=== PATIENT | female | born 1965 | race Caucasian/White ===

== ENCOUNTER 2020-01-23 13:05 | Outpatient (REF) | payer OTHER, SELFPAY ==
[2020-01-24 09:51] LABS: CT PCR NOT DETECTED (Not Detect.); NG PCR NOT DETECTED (Not Detect.)
[2020-01-27 22:41] LABS: HPV mRNA E6/E7 Not Detected (Not Detected)
== END 2020-01-23 13:06 | disposition home or self-care (01) ==
LOC: HO.LNP 13:05
PROVIDERS: PCP Family Medicine; Referring Provider Family Medicine; Visit Provider Advanced Practice Midwife
DX: Z01.411 Encounter for gynecological examination (general) (routine) with abnormal findings (principal); Z20.2 Contact with and (suspected) exposure to infections with a predominantly sexual mode of transmission; L73.8 Other specified follicular disorders
CPT/HCPCS: 87491; 87591; 87624; 87625; 88142

== ENCOUNTER 2020-07-09 12:50 | Outpatient (REF) | payer OTHER, SELFPAY ==
[2020-07-09 15:17] LABS: Anion Gap 14 (12-20); Blood Urea Nitrogen 13 mg/dL (9-16); Calcium 9.1 mg/dL (8.4-10.2); Carbon Dioxide 22 mmol/L (22-29); Chloride 104 mmol/L (96-108); Cholesterol 115 mg/dL; Estimated Glomerular Filt Rate > 60; Glucose Fasting 107 mg/dL (60-99); HDL Cholesterol 50 mg/dL; LDL Cholesterol Calculated 53 mg/dl; Potassium 3.6 mmol/L (3.3-5.1); Sodium 136 mmol/L (135-145); Triglycerides 64 mg/dL
[2020-07-09 15:53] LABS: Vitamin B12 504 pg/mL (200-900)
[2020-07-09 16:41] LABS: Free T4 (Free Thyroxine) 0.92 ng/dL (0.71-1.85); Thyroid Stimulating Hormone 1.14 uIU/mL (0.32-4.0)
[2020-07-10 05:56] LABS: LDL Cholesterol Direct 48 mg/dL (<100)
== END 2020-07-09 12:51 | disposition home or self-care (01) ==
LOC: HO.LAB 12:50
PROVIDERS: PCP Family Medicine; Visit Provider Internal Medicine Endocrinology, Diabetes & Metabolism
DX: E11.42 Type 2 diabetes mellitus with diabetic polyneuropathy (principal); E66.9 Obesity, unspecified; I10 Essential (primary) hypertension; Z79.899 Other long term (current) drug therapy; Z79.82 Long term (current) use of aspirin; Z79.84 Long term (current) use of oral hypoglycemic drugs; Z71.89 Other specified counseling
CPT/HCPCS: 36415; 80048; 80061; 82607; 82947; 83721; 84439; 84443; 99212

== ENCOUNTER 2020-08-20 15:24 | Outpatient (REF) | payer OTHER, SELFPAY | END 2020-08-20 15:25 | disposition home or self-care (01) | LOC: HO.LAB 15:24 | PROVIDERS: Visit Provider Internal Medicine | DX: Z20.822 Contact with and (suspected) exposure to COVID-19 (principal) | CPT/HCPCS: C9803; U0003; U0005 ==

== ENCOUNTER → 2020-10-20 11:24 | Outpatient (BNVA) | payer OTHER, SELFPAY | PROVIDERS: PCP Family Medicine; Visit Provider Advanced Practice Midwife | DX: Z30.431 Encounter for routine checking of intrauterine contraceptive device (principal); R10.2 Pelvic and perineal pain | CPT/HCPCS: Q3014 ==

== ENCOUNTER 2020-11-06 10:05 | Outpatient (REF) | payer OTHER, SELFPAY ==
--- NOTE | ~2020-11-06 | MM_ITS ---
EXAMINATION: MM SCREENING DIGITAL BREAST TOMOSYNTHESIS, BILATERAL CLINICAL INFORMATION: Screening. Asymptomatic. The lifetime risk of breast cancer based on the Tyrer-Cuzick Model is 10%. COMPARISON: Mammography: 09/30/2016, 08/17/2015 TECHNIQUE: Digital breast tomosynthesis is performed in both the craniocaudal and mediolateral oblique views along with computer-aided detection (CAD). Synthesized 2D images are generated from the tomosynthesis. Additional left MLO view is provided. FINDINGS: There are scattered areas of fibroglandular density (ACR BI-RADS breast composition Category b). There are no significant masses, abnormal calcifications, or other abnormalities. Parenchymal pattern is similar to prior studies. The axilla and skin contours are unremarkable. Incidental intramammary node again seen posterior upper outer quadrant right breast. MM/MM tomosynthesis screening BI IMPRESSION: No mammographic evidence of malignancy. ASSESSMENT: BI-RADS 2: Benign RECOMMENDATION: Routine annual mammography screening. This patient's information was entered into a reminder system with a target due date for their next mammogram.
== END 2020-11-06 10:06 | disposition home or self-care (01) ==
LOC: HO.MAMMO 10:05
PROVIDERS: Visit Provider Family Medicine
DX: Z12.31 Encounter for screening mammogram for malignant neoplasm of breast (principal)
CPT/HCPCS: 77063; 77067

== ENCOUNTER → 2020-12-16 13:26 | Outpatient (BNVA) | payer OTHER, SELFPAY | PROVIDERS: Visit Provider Advanced Practice Midwife | DX: Z30.432 Encounter for removal of intrauterine contraceptive device (principal); E66.01 Morbid (severe) obesity due to excess calories; E11.42 Type 2 diabetes mellitus with diabetic polyneuropathy; Z68.33 Body mass index [BMI] 33.0-33.9, adult; Z88.0 Allergy status to penicillin; Z88.8 Allergy status to other drugs, medicaments and biological substances; Z88.1 Allergy status to other antibiotic agents; Z91.041 Radiographic dye allergy status | CPT/HCPCS: 58301 ==

== ENCOUNTER → 2021-06-22 13:08 | Outpatient (BNVA) | payer OTHER, SELFPAY | PROVIDERS: PCP Family Medicine; Visit Provider Nurse Practitioner Gerontology | DX: E11.42 Type 2 diabetes mellitus with diabetic polyneuropathy (principal); E66.09 Other obesity due to excess calories; I10 Essential (primary) hypertension; Z68.32 Body mass index [BMI] 32.0-32.9, adult | CPT/HCPCS: 82947; 83036; 95250; 99212 ==

== ENCOUNTER → 2021-07-07 13:25 | Outpatient (BNVA) | payer OTHER, SELFPAY | PROVIDERS: PCP Family Medicine; Visit Provider Nurse Practitioner Gerontology | DX: E11.42 Type 2 diabetes mellitus with diabetic polyneuropathy (principal); I10 Essential (primary) hypertension; E66.09 Other obesity due to excess calories; Z68.34 Body mass index [BMI] 34.0-34.9, adult; Z79.84 Long term (current) use of oral hypoglycemic drugs | CPT/HCPCS: 82947; Q3014 ==

== ENCOUNTER 2021-09-22 05:08 | Emergency (ER) | payer OTHER, SELFPAY ==
--- NOTE | ~2021-09-22 | CT_ITS ---
EXAMINATION: CT ABDOMEN AND PELVIS WITHOUT CONTRAST CLINICAL INFORMATION: Epigastric pain COMPARISON: CT 08/01/2018 TECHNIQUE: Multidetector volumetric imaging was performed from the superior aspect of the liver through the pubic symphysis. Sagittal and coronal reformatted images were obtained on the technologist's workstation. This CT examination was performed using dose optimization techniques as appropriate, variously including the following: *Automated exposure control *Adjustment of mA and/or kV according to patient size (this includes techniques or standardized protocols for targeted exams where dose is matched to indication/reason for exam; i.e. extremities or head) *Use of iterative reconstruction technique DLP: 739 mGy-cm FINDINGS: LUNG BASES: Mild bibasilar atelectasis. LIVER, GALLBLADDER, AND BILIARY TREE: No focal liver lesions. No biliary duct dilatation. Stable small calcifications along the surface of the right lobe of the liver. Status postcholecystectomy. PANCREAS: No inflammatory changes. No pancreatic duct dilatation. SPLEEN: Normal size. ADRENAL GLANDS: Stable appearance. Unremarkable. KIDNEYS AND URETERS: No radiopaque renal or ureteral calculi. No solid mass lesions. Mild bilateral perinephric stranding. BLADDER: Unremarkable. GASTROINTESTINAL TRACT: Stomach is partially distended, suboptimally evaluated, without gross abnormality. No evidence of bowel obstruction. No bowel wall thickening seen. Appendix appears unremarkable. ABDOMINAL WALL: No significant hernia is appreciated. LYMPH NODES: No lymphadenopathy. VASCULAR: Normal caliber aorta. PELVIC VISCERA: Within normal limits. Interval removal of the previously noted IUD. OSSEOUS STRUCTURES: Degenerative changes of the spine. No suspicious lytic or blastic lesions seen. CT/CT abdomen pelvis wo con IMPRESSION: -Status postcholecystectomy. -Nonobstructive bowel gas pattern. -Mild bibasilar atelectasis. -No CT evidence of acute intra-abdominal process to explain the patient's symptoms.
--- NOTE | 2021-09-22 05:15 | ECG_ITS ---
Test Reason : ABNOMINAL PAIN Blood Pressure : / mmHG Vent. Rate : 071 BPM Atrial Rate : 071 BPM P-R Int : 190 ms QRS Dur : 080 ms QT Int : 414 ms P-R-T Axes : 055 037 043 degrees QTc Int : 449 ms Sinus rhythm with Premature atrial complexes Otherwise normal ECG When compared with ECG of 07-DEC-2019 23:06, Premature atrial complexes are now Present Referred By: Ninoska Rueda Electronically Signed By:JUAN HIGGINBOTHAM MD
[2021-09-22 05:26] VITALS: BP 150/78; PULSE 76; RESP 14; TEMP 36.7; O2SAT 100; BMI 32.5
[2021-09-22 05:38] LABS: Glucose, Whole Blood 146 mg/dL (60-115)
[2021-09-22 06:00] VITALS: RESP 16
--- NOTE | 2021-09-22 06:00 | ED.ABDPAIN ---
HPI - Abdominal Pain General Chief Complaint: Abdominal Pain Stated Complaint: UPPER ABD PAIN Time Seen by Provider: 09/22/21 05:15 Source: patient and family Mode of arrival: EMS History of Present Illness HPI narrative: 56-year-old female with history of hypertension and diabetes presents with onset of epigastric pain since yesterday that radiates into her back and has been associated with nausea, vomiting, chills but she has continued to pass flatus and have a bowel movement. Otherwise patient denies urinary pain/burning/frequency or diarrhea and states that she is status post cholecystectomy. Related Data Home Medications Medication Instructions Recorded Confirmed amitriptyline 50 mg tablet 50 mg PO BEDTIME 01/20/20 07/09/20 blood sugar diagnostic #10 ea 01/20/20 07/09/20 blood-glucose meter #1 ea 01/20/20 07/09/20 cyanocobalamin (vitamin B-12) 250 250 mcg PO DAILY 01/20/20 06/22/21 mcg tablet diphenhydramine HCl 50 mg capsule 50 mg PO BEDTIME 01/20/20 07/09/20 hydrochlorothiazide 25 mg tablet 25 mg PO DAILY 01/20/20 07/07/21 ibuprofen 600 mg tablet 600 mg PO TID 01/20/20 07/09/20 lorazepam 0.5 mg tablet 0.5 mg PO BID PRN 01/20/20 07/09/20 sertraline 100 mg tablet 0 mg PO 01/20/20 07/09/20 topiramate 100 mg tablet 100 mg PO BID 01/20/20 07/09/20 albuterol sulfate 2.5 mg INHALATION Q4-6H PRN 01/23/20 07/09/20 albuterol sulfate 90 mcg/actuation 0 mcg INHALATION 01/23/20 07/09/20 aerosol inhaler amlodipine 10 mg tablet 10 mg PO DAILY 01/23/20 07/07/21 aspirin 81 mg tablet,delayed 81 mg PO DAILY 01/23/20 07/07/21 release (Adult Low Dose Aspirin) beclomethasone dipropionate 80 1 inh INHALATION BID 01/23/20 07/09/20 mcg/actuation HFA breath activated aerosol (Qvar RediHaler) ciclesonide 160 mcg/actuation 0 mcg INHALATION 01/23/20 07/09/20 aerosol inhaler ciclesonide 80 mcg/actuation 1 puff INHALATION BID 01/23/20 07/09/20 aerosol inhaler (Alvesco) famotidine 20 mg tablet 20 mg PO DAILY 01/23/20 07/09/20 lisinopril 10 mg tablet 10 mg PO DAILY 01/23/20 07/07/21 montelukast 10 mg tablet 10 mg PO DAILY 01/23/20 07/09/20 (Singulair) sertraline 25 mg tablet 25 mg PO DAILY 01/23/20 07/09/20 umeclidinium 62.5 mcg/actuation 1 inh PO DAILY 01/23/20 07/09/20 blister powder for inhalation zolpidem 5 mg tablet (Ambien) 5 mg PO BEDTIME PRN 01/23/20 07/09/20 ferrous sulfate 325 mg (65 mg 0 mg PO 07/07/21 07/07/21 iron) tablet,delayed release Previous Rx's Medication Instructions Recorded nut.tx.gluc.intol,lac-free,soy 1 ea PO .twice a day 30 Days 05/22/20 (Glucerna Therapeutic Nutrition) #78278 ml empagliflozin 25 mg tablet 25 mg PO QAM 30 Days #30 tab 06/03/21 metformin 500 mg tablet,extended 500 mg PO BID 30 Days #60 tab 06/03/21 release 24hr blood sugar diagnostic (FreeStyle #50 ea 06/22/21 Lite Strips) triamcinolone acetonide 0.025 % 1 appl TOPICAL BID #80 g 06/23/21 topical ointment sitagliptin 100 mg tablet 100 mg PO DAILY 30 Days #30 tab 08/19/21 atorvastatin 40 mg tablet 40 mg PO BEDTIME 90 Days #90 tab 08/20/21 Allergies Allergy/AdvReac Type Severity Reaction Status Date / Time amoxicillin [AMOXICILLIN] Allergy Unknown UNKNOWN, Verified 09/22/21 06:13 anaphylaxis Iodinated Contrast Media Allergy Unknown ANAPHYLAXIS Verified 09/22/21 06:13 [IODINATED CONTRAST MEDIA] morphine [MORPHINE] Allergy Unknown FEELS LIKE Verified 09/22/21 06:13 HER THROAT CLOSES AND SHE GETS SHORT OF BREATH, headache Penicillins [PENICILLINS] Allergy Unknown UNKNOWN Verified 09/22/21 06:13 beta-blockers Allergy Unknown difficulty Uncoded 09/22/21 06:13 (beta-adrenergic breathing IV cotrast dye Allergy Unknown Anaphylaxis Uncoded 09/22/21 06:13 Review of Systems Review of Systems Pertinent positives and negatives as stated in HPI 10 point review of systems is otherwise negative. [facility] Past Medical History Source: nursing notes reviewed Medical History Acid reflux Asthma Depression Diabetes type 2, controlled Diabetic polyneuropathy associated with type 2 diabetes mellitus Fibromyalgia HTN (hypertension) Insomnia Iron deficiency anemia Migraine Obesity (BMI 30-39.9) Obesity due to excess calories Obesity, morbid Sebaceous gland hyperplasia of vulva Stroke Vulvar abscess Surgical History History of carpal tunnel surgery History of surgical removal of pilonidal cyst Hx of abdominoplasty Hx of adenoidectomy Hx of section Hx of craniotomy Hx of left hemicolectomy Family History Family History Father Family history of stroke Family hx of hypertension Mother Family hx of hypertension History of hyperthyroidism Hx of diabetes mellitus Hx pulmonary embolism Social History Social History Household Members: None Patient Tobacco Use Status: Never used Tobacco Advance Directives: No Physical Exam ED Vital Signs: Vital Signs - 24 hr 09/22/21 05:26 Temperature 98.1 F Pulse Rate 76 Respiratory Rate 14 Blood Pressure 150/78 H Pulse Oximetry 100 BMI result Body Mass Index 32.5 VITAL SIGNS: Reviewed. GENERAL: Well developed, well nourished, in moderate distress. HEAD: Normocephalic/atraumatic EYES: PERRLA, EOMI EARS: Ext canals without abnormality OROPHARYNX: no oral lesions noted, posterior pharynx clear LUNGS: Normal breath sounds. No adventitious sounds or accessory muscle use. SpO2<100> CARDIOVASCULAR: Regular rate and rhythm without noted murmurs, no JVD or lower extremity edema. ABDOMEN: Soft, epigastric pain, non-distended with bowel sounds. MUSCULOSKELETAL: No tenderness, deformities, or effusions noted on gross inspection. EXTREMITIES: No cyanosis, clubbing or edema. SKIN: Inspection of the skin reveals no rashes NEUROLOGIC: Alert and oriented x 4. Course Course Course Narrative: 56-year-old female with history and clinical presentation suggestive of possible pancreatitis, less likely felt to be gastritis. Patient received IV fluids pain medication. Review of investigations demonstrates a mild leukocytosis, patient been nauseous vomiting. Per carb is be low, this is felt to be consistent with patient's mild dehydration. Signed out to Dr Emerson: f/u CT scan- SBO? MDM - Abdominal Pain Lab Data Result diagrams: 09/22/21 05:54 09/22/21 05:54 Labs: Lab Results 09/22/21 09/22/21 09/22/21 Range/Units 05:35 05:54 05:54 WBC 11.7 H (4.8-10.8) X10*3/uL RBC 5.33 (4.20-5.50) X10*6/uL Hgb 14.0 (12.0-16.0) g/dl Hct 43.9 (37.0-47.0) % MCV 82.4 (80.0-98.0) fL MCH 26.3 L (27.0-33.0) pg MCHC 31.9 (31.0-35.0) g/dl RDW 14.9 (11.0-16.0) % Plt Count 237 (160-400) X10*3/uL MPV 10.0 (9.4-12.3) fL Immature Gran % (Auto) 0.3 (0.0-0.4) % Neut % (Auto) 81.3 H (45-73) % Lymph % (Auto) 13.0 L (20-40) % [place] % (Auto) 3.6 (2-11) % Eos % (Auto) 1.5 (0-4) % Baso % (Auto) 0.3 (0-2) % Lymph # (Auto) 1.5 (1.2-4.9) X10*3/uL [place] # (Auto) 0.4 (0.1-1.2) X10*3/uL Eos # (Auto) 0.2 (0.0-0.4) X10*3/uL Baso # (Auto) 0.0 (0.0-0.2) X10*3/uL Abs Immat Gran (auto) 0.03 (0.00-0.03) X10*3/uL Absolute Neuts (auto) 9.6 H (2.0-8.3) x10*3/uL Absolute Nucleated RBC 0.000 (0.0-0.012) X10*3/uL Nucleated RBC % (auto) 0.0 (0.0-0.2) /100WBC Sodium 137 (135-145) mmol/L Potassium 3.7 (3.3-5.1) mmol/L Chloride 104 (96-108) mmol/L Carbon Dioxide 19 L (22-29) mmol/L Anion Gap 18 (12-20) BUN 19 H (9-16) mg/dL Creatinine 0.87 (0.5-1.4) mg/dL Estim Creat Clear Calc 77.6 Estimated GFR > 60 POC Glucose 146 H (60-115) mg/dL Random Glucose 153 H (60-115) mg/dL Calcium 10.3 H D (8.4-10.2) mg/dL Total Bilirubin 0.5 (0.0-1.0) mg/dL AST 26 (5-31) U/L ALT 25 (0-31) U/L Alkaline Phosphatase 90 (39-117) U/L Total Protein 8.2 H (6.5-8.0) g/dL Albumin 4.5 (3.5-5.0) g/dL Lipase 38 (8-78) U/L COVID-19 (SHEILA) (Negative) COVID-19 Clin Com 09/22/21 Range/Units 05:54 WBC (4.8-10.8) X10*3/uL RBC (4.20-5.50) X10*6/uL Hgb (12.0-16.0) g/dl Hct (37.0-47.0) % MCV (80.0-98.0) fL MCH (27.0-33.0) pg MCHC (31.0-35.0) g/dl RDW (11.0-16.0) % Plt Count (160-400) X10*3/uL MPV (9.4-12.3) fL Immature Gran % (Auto) (0.0-0.4) % Neut % (Auto) (45-73) % Lymph % (Auto) (20-40) % [place] % (Auto) (2-11) % Eos % (Auto) (0-4) % Baso % (Auto) (0-2) % Lymph # (Auto) (1.2-4.9) X10*3/uL [place] # (Auto) (0.1-1.2) X10*3/uL Eos # (Auto) (0.0-0.4) X10*3/uL Baso # (Auto) (0.0-0.2) X10*3/uL Abs Immat Gran (auto) (0.00-0.03) X10*3/uL Absolute Neuts (auto) (2.0-8.3) x10*3/uL Absolute Nucleated RBC (0.0-0.012) X10*3/uL Nucleated RBC % (auto) (0.0-0.2) /100WBC Sodium (135-145) mmol/L Potassium (3.3-5.1) mmol/L Chloride (96-108) mmol/L Carbon Dioxide (22-29) mmol/L Anion Gap (12-20) BUN (9-16) mg/dL Creatinine (0.5-1.4) mg/dL Estim Creat Clear Calc Estimated GFR POC Glucose (60-115) mg/dL Random Glucose (60-115) mg/dL Calcium (8.4-10.2) mg/dL Total Bilirubin (0.0-1.0) mg/dL AST (5-31) U/L ALT (0-31) U/L Alkaline Phosphatase (39-117) U/L Total Protein (6.5-8.0) g/dL Albumin (3.5-5.0) g/dL Lipase (8-78) U/L COVID-19 (SHEILA) Negative (Negative) COVID-19 Clin Com See Note ECG Data Attestation: I personally reviewed and interpreted this ECG as follows: Prior ECG tracings: not available for review Interpretation: Sinus rhythm with PACs, HR-71, no STEMI, RI/QRS/QTC are within normal limits. Discharge Plan Discharge Clinical Impression: Epigastric abdominal pain, Nausea & vomiting Patient Disposition: Still a Patient Prescriptions: No Action Glucerna Therapeutic Nutrition Liquid 1 ea PO .twice a day 30 Days Qty: 62918 6RF metformin 500 mg tablet extended release 24hr 500 mg PO BID 30 Days Qty: 60 6RF empagliflozin 25 mg tablet 25 mg PO QAM 30 Days Qty: 30 6RF sitagliptin 100 mg tablet 100 mg PO DAILY 30 Days Qty: 30 6RF atorvastatin 40 mg tablet 40 mg PO BEDTIME 90 Days Qty: 90 2RF triamcinolone acetonide 0.025 % ointment 1 appl topical BID Qty: 80 0RF Rx Instructions: do not use near eyes amitriptyline 50 mg tablet 50 mg PO BEDTIME 0RF sertraline 100 mg tablet 0 mg PO 0RF lorazepam 0.5 mg tablet 0.5 mg PO BID PRN0RF hydrochlorothiazide 25 mg tablet 25 mg PO DAILY 0RF cyanocobalamin (vitamin B-12) 250 mcg tablet 250 mcg PO DAILY 0RF diphenhydramine HCl 50 mg capsule 50 mg PO BEDTIME 0RF topiramate 100 mg tablet 100 mg PO BID 0RF ibuprofen 600 mg tablet 600 mg PO TID 0RF (DME) FreeStyle Lite Strips Strip See Rx Instructions ea Not Applicable TID Qty: 10 0RF Rx Instructions: As directed (DME) blood-glucose meter Kit See Rx Instructions ea .ROUTE DIRECTED Qty: 1 0RF Rx Instructions: As directed albuterol sulfate 90 mcg/actuation HFA aerosol inhaler 0 mcg inhalation 0RF albuterol sulfate 2.5 mg /3 mL (0.083 %) solution for nebulization 2.5 mg inhalation Q4-6H PRN0RF Alvesco 160 mcg/actuation HFA aerosol inhaler 0 mcg inhalation 0RF Incruse Ellipta 62.5 mcg/actuation blister with device 1 inh PO DAILY 0RF lisinopril 10 mg tablet 10 mg PO DAILY 0RF zolpidem [Ambien] 5 mg tablet 5 mg PO BEDTIME PRN0RF sertraline 25 mg tablet 25 mg PO DAILY 0RF amlodipine 10 mg tablet 10 mg PO DAILY 0RF famotidine 20 mg tablet 20 mg PO DAILY 0RF Qvar RediHaler 80 mcg/actuation HFA aerosol breath activated 1 inh inhalation BID 0RF montelukast [Singulair] 10 mg tablet 10 mg PO DAILY 0RF Alvesco 80 mcg/actuation HFA aerosol inhaler 1 puff inhalation BID 0RF aspirin [Adult Low Dose Aspirin] 81 mg tablet,delayed release (DR/EC) 81 mg PO DAILY 0RF (DME) FreeStyle Lite Strips Strip See Rx Instructions .ROUTE .MEDSUPPLY Qty: 50 11RF Rx Instructions: 2 times a day ferrous sulfate 325 mg (65 mg iron) tablet,delayed release (DR/EC) 0 mg PO 0RF
[2021-09-22 06:01] LABS: MANUAL DIFF FLAG NO
[2021-09-22 06:02] LABS: Basophils Percent Auto 0.3 % (0-2); Eosinophils Absolute Auto 0.2 X10*3/uL (0.0-0.4); Eosinophils Percent Auto 1.5 % (0-4); Hematocrit 43.9 % (37.0-47.0); Imm Gran Abs Auto 0.03 X10*3/uL (0.00-0.03); Imm Gran Pct Auto 0.3 % (0.0-0.4); Lymphocytes Absolute Auto 1.5 X10*3/uL (1.2-4.9); Mean Corpuscular HGB Conc 31.9 g/dl (31.0-35.0); Mean Corpuscular Hemoglobin 26.3 pg (27.0-33.0); Mean Corpuscular Volume 82.4 fL (80.0-98.0); Monocytes Absolute Auto 0.4 X10*3/uL (0.1-1.2); Monocytes Percent Auto 3.6 % (2-11); Neutrophils Absolute Auto 9.6 x10*3/uL (2.0-8.3); Neutrophils Percent Auto 81.3 % (45-73); Platelet Count 237 X10*3/uL (160-400); Red Blood Count 5.33 X10*6/uL (4.20-5.50); Red Cell Distribution Width 14.9 % (11.0-16.0); White Blood Count 11.7 X10*3/uL (4.8-10.8)
[2021-09-22 06:20] LABS: Alanine Aminotransferase 25 U/L (0-31); Albumin Level 4.5 g/dL (3.5-5.0); Alkaline Phosphatase 90 U/L (39-117); Anion Gap 18 (12-20); Aspartate Amino Transferase 26 U/L (5-31); Bilirubin Total 0.5 mg/dL (0.0-1.0); Blood Urea Nitrogen 19 mg/dL (9-16); Calcium 10.3 mg/dL (8.4-10.2); Carbon Dioxide 19 mmol/L (22-29); Chloride 104 mmol/L (96-108); Creatinine Clr Calc Pharmacy 77.6; Estimated Glomerular Filt Rate > 60; Glucose Random 153 mg/dL (60-115); Lipase 38 U/L (8-78); Potassium 3.7 mmol/L (3.3-5.1); Sodium 137 mmol/L (135-145); Total Protein 8.2 g/dL (6.5-8.0)
[2021-09-22 06:24] LABS: COVID-19 Test Negative (Negative)
[2021-09-22] MEDS: ondansetron HCL 4 MG/2 ML VIAL IVPUSH (06:28)
[2021-09-22] MEDS: fentaNYL citrate/PF 100 MCG/2 ML VIAL 25 MCG IVPUSH (06:28)
[2021-09-22] MEDS: 0.9 % Sodium Chloride 1,000 ML 999 ML IV (06:30)
--- NOTE | 2021-09-22 06:58 | PC.NURSE ---
report given to MAYA Tran
[2021-09-22 08:08] VITALS: BP 94/57; PULSE 92; RESP 17; TEMP 36.7; O2SAT 100
[2021-09-22 10:11] LABS: Appearance Urine CLEAR; Color Urine YELLOW; Glucose Urine UA >=1000 MG/DL (NEG); Leukocyte Esterase Urine NEG (NEG); Nitrite Urine NEG (NEG); PH 7.5 (5.0-8.0); Urine Blood NEG (NEG); Urine Ketones 40 MG/DL (NEG); Urine Protein NEG (NEG-TRACE)
[2021-09-22 10:17] LABS: Squamous Epithelial Cell Urine 2+ /LPF; WBC Urine 0 /HPF (0-4)
== END 2021-09-22 11:56 | disposition home or self-care (01) ==
PROVIDERS: Student in an Organized Health Care Education/Training Program; Emergency Provider Emergency Medicine; PCP Family Medicine
DX: R10.13 Epigastric pain (principal); R11.2 Nausea with vomiting, unspecified; I10 Essential (primary) hypertension; E11.9 Type 2 diabetes mellitus without complications; J45.909 Unspecified asthma, uncomplicated; Z86.73 Personal history of transient ischemic attack (TIA), and cerebral infarction without residual deficits; Z20.822 Contact with and (suspected) exposure to COVID-19
CPT/HCPCS: 74176; 80053; 81001; 82947; 83690; 85025; 87635; 93005; 96361; 96372; 96375; 99283; 99284; J2405; J3010

== ENCOUNTER 2021-09-25 02:14 | Observation (INO) | payer OTHER, SELFPAY ==
[2021-09-25] VITALS (8 sets, daily range): BP systolic 122–157; BP diastolic 63–84; PULSE 59–87; RESP 14–20; TEMP 36.3–37; O2SAT 97–100; BMI 33.3; BMI 34.9
--- NOTE | ~2021-09-25 | US_ITS ---
EXAMINATION: US ABDOMEN LIMITED CLINICAL INFORMATION: Right upper quadrant pain. Elevated LFTs.. COMPARISON: CT scan of September 25, 2021 TECHNIQUE: Real-time imaging of the right upper quadrant abdominal viscera. FINDINGS: PANCREAS: The head and body appear unremarkable without abnormal mass or peripancreatic inflammatory change. The tail is obscured by overlying bowel gas. LIVER: There is diffuse increased echogenicity consistent with fatty infiltration. The liver is normal in size. The liver contour is normal. No focal hepatic lesion. There is no intrahepatic biliary duct dilatation seen. GALLBLADDER: Status post cholecystectomy. COMMON BILE DUCT: Normal in caliber measuring 0.4 cm in diameter. RIGHT KIDNEY: Normal. No hydronephrosis. No renal calculi or focal parenchymal lesions. The kidney measures 10.6 cm in maximum dimension. FREE FLUID: None. US/US abdomen limited IMPRESSION: Diffusely increased echogenicity of the liver consistent with fatty infiltration.
--- NOTE | ~2021-09-25 | MR_ITS ---
EXAMINATION: MR CHOLANGIOPANCREATOGRAPHY CLINICAL INFORMATION: 09/25/[address] scan COMPARISON: None. TECHNIQUE: Multiple routine MRI sequences through the abdomen were obtained. Heavily T2-weighted images were performed utilizing a dedicated MRCP technique. Contrast was not utilized for the study. FINDINGS: Biliary system: The common bile duct is normal in course and caliber measuring up to 0.5 cm with no evidence for intra-or extrahepatic biliary ductal dilatation. No intraluminal filling defects are appreciated. Gallbladder: Surgically absent. Liver parenchyma is homogeneous in signal with no focal hepatic lesion appreciated. Pancreas: The pancreatic duct is normal in course and caliber with no evidence for pancreatic ductal obstruction. There is homogeneous signal to the pancreas with no focal suspicious pancreatic lesion. No visualized abnormalities are seen in the kidneys, adrenals, or spleen. MR/MR MRCP IMPRESSION: Gallbladder surgically absent. No pancreatic or biliary ductal abnormality seen. No evidence for obstruction or intraluminal filling defects.
--- NOTE | ~2021-09-25 | CT_ITS ---
EXAMINATION: CT ABDOMEN AND PELVIS WITHOUT CONTRAST CLINICAL INFORMATION: Elevated LFTs, question retained stone COMPARISON: 09/22/2021 TECHNIQUE: Multidetector volumetric imaging was performed from the superior aspect of the liver through the pubic symphysis. Sagittal and coronal reformatted images were obtained on the technologist's workstation. This CT examination was performed using dose optimization techniques as appropriate, variously including the following: *Automated exposure control *Adjustment of mA and/or kV according to patient size (this includes techniques or standardized protocols for targeted exams where dose is matched to indication/reason for exam; i.e. extremities or head) *Use of iterative reconstruction technique DLP: 7:30 mGy-cm FINDINGS: LUNG BASES: The visualized lung bases are unremarkable. LIVER, GALLBLADDER, AND BILIARY TREE: The liver is normal in size, shape, and attenuation. No focal hepatic lesion or biliary ductal dilatation is present. Patient is status post cholecystectomy. PANCREAS: Unremarkable. SPLEEN: Unremarkable. ADRENAL GLANDS: Unremarkable. KIDNEYS AND URETERS: The kidneys are normal in size, shape, and attenuation. No hydronephrosis, hydroureter, or calculi seen. Nonspecific bilateral perinephric stranding, similar to prior. BLADDER: Unremarkable. GASTROINTESTINAL TRACT: There is scattered colonic diverticulosis. No evidence of bowel obstruction or abnormal wall thickening. The appendix is unremarkable. No free fluid or free air is seen. ABDOMINAL WALL: No significant hernia is appreciated. LYMPH NODES: Normal. VASCULAR: Unremarkable. PELVIC VISCERA: Unremarkable. OSSEOUS STRUCTURES: Degenerative changes are noted in the spine. CT/CT abdomen pelvis wo con IMPRESSION: No acute findings identified in the abdomen/pelvis. Status post cholecystectomy. No biliary ductal dilatation to suggest retained stone; if clinically warranted, this may be more definitively assessed with MRCP.
--- NOTE | 2021-09-25 02:31 | ECG_ITS ---
Test Reason : ABD PAIN Blood Pressure : / mmHG Vent. Rate : 069 BPM Atrial Rate : 069 BPM P-R Int : 190 ms QRS Dur : 084 ms QT Int : 430 ms P-R-T Axes : 053 014 033 degrees QTc Int : 460 ms Normal sinus rhythm Normal ECG When compared with ECG of 22-SEP-2021 05:23, Premature atrial complexes are no longer Present Referred By: Elin Garcia Electronically Signed By:JUAN HIGGINBOTHAM MD
--- NOTE | 2021-09-25 02:46 | ED_ITS ---
HPI - Abdominal Pain General Chief Complaint: Abdominal Pain Stated Complaint: stomach pain, n/v Time Seen by Provider: 09/25/21 02:24 Source: patient and old records reviewed Mode of arrival: ambulatory Limitations: no limitations History of Present Illness HPI narrative: 56 yo female hx of HTN, DM, obesity, GERD, seen here for epigastric pain on 09/22 with negative workup, CT scan negative at that time sent home on protonix comes back with c/o persistent RUQ pain radiating to back with n/v not responding to home nausea medications. No triggering events. MD elicited complaint: abdominal pain Pertinent past history: none Onset (ago): day(s) (09/22) Pain Consistency: intermittent Location: RUQ Severity: moderate Quality: aching Radiation: R flank and back Migration to: no migration Exacerbating factors: eating Relieving factors: nothing Associated symptoms: nausea and vomiting Related Data Home Medications Medication Instructions Recorded Confirmed amitriptyline 50 mg tablet 50 mg PO BEDTIME 01/20/20 07/09/20 blood sugar diagnostic #10 ea 01/20/20 07/09/20 blood-glucose meter #1 ea 01/20/20 07/09/20 cyanocobalamin (vitamin B-12) 250 250 mcg PO DAILY 01/20/20 06/22/21 mcg tablet diphenhydramine HCl 50 mg capsule 50 mg PO BEDTIME 01/20/20 07/09/20 hydrochlorothiazide 25 mg tablet 25 mg PO DAILY 01/20/20 07/07/21 ibuprofen 600 mg tablet 600 mg PO TID 01/20/20 07/09/20 lorazepam 0.5 mg tablet 0.5 mg PO BID PRN 01/20/20 07/09/20 sertraline 100 mg tablet 0 mg PO 01/20/20 07/09/20 topiramate 100 mg tablet 100 mg PO BID 01/20/20 07/09/20 albuterol sulfate 2.5 mg INHALATION Q4-6H PRN 01/23/20 07/09/20 albuterol sulfate 90 mcg/actuation 0 mcg INHALATION 01/23/20 07/09/20 aerosol inhaler amlodipine 10 mg tablet 10 mg PO DAILY 01/23/20 07/07/21 aspirin 81 mg tablet,delayed 81 mg PO DAILY 01/23/20 07/07/21 release (Adult Low Dose Aspirin) beclomethasone dipropionate 80 1 inh INHALATION BID 01/23/20 07/09/20 mcg/actuation HFA breath activated aerosol (Qvar RediHaler) ciclesonide 160 mcg/actuation 0 mcg INHALATION 01/23/20 07/09/20 aerosol inhaler ciclesonide 80 mcg/actuation 1 puff INHALATION BID 01/23/20 07/09/20 aerosol inhaler (Alvesco) famotidine 20 mg tablet 20 mg PO DAILY 01/23/20 07/09/20 lisinopril 10 mg tablet 10 mg PO DAILY 01/23/20 07/07/21 montelukast 10 mg tablet 10 mg PO DAILY 01/23/20 07/09/20 (Singulair) sertraline 25 mg tablet 25 mg PO DAILY 01/23/20 07/09/20 umeclidinium 62.5 mcg/actuation 1 inh PO DAILY 01/23/20 07/09/20 blister powder for inhalation zolpidem 5 mg tablet (Ambien) 5 mg PO BEDTIME PRN 01/23/20 07/09/20 ferrous sulfate 325 mg (65 mg 0 mg PO 07/07/21 07/07/21 iron) tablet,delayed release Previous Rx's Medication Instructions Recorded nut.tx.gluc.intol,lac-free,soy 1 ea PO .twice a day 30 Days 05/22/20 (Glucerna Therapeutic Nutrition) #89834 ml empagliflozin 25 mg tablet 25 mg PO QAM 30 Days #30 tab 06/03/21 metformin 500 mg tablet,extended 500 mg PO BID 30 Days #60 tab 06/03/21 release 24hr blood sugar diagnostic (FreeStyle #50 ea 06/22/21 Lite Strips) triamcinolone acetonide 0.025 % 1 appl TOPICAL BID #80 g 06/23/21 topical ointment sitagliptin 100 mg tablet 100 mg PO DAILY 30 Days #30 tab 08/19/21 atorvastatin 40 mg tablet 40 mg PO BEDTIME 90 Days #90 tab 08/20/21 ondansetron 4 mg disintegrating 4 mg PO Q8H 4 Days #12 tab 09/22/21 tablet Allergies Allergy/AdvReac Type Severity Reaction Status Date / Time amoxicillin [AMOXICILLIN] Allergy Unknown UNKNOWN, Verified 09/22/21 06:13 anaphylaxis Iodinated Contrast Media Allergy Unknown ANAPHYLAXIS Verified 09/22/21 06:13 [IODINATED CONTRAST MEDIA] morphine [MORPHINE] Allergy Unknown FEELS LIKE Verified 09/22/21 06:13 HER THROAT CLOSES AND SHE GETS SHORT OF BREATH, headache Penicillins [PENICILLINS] Allergy Unknown UNKNOWN Verified 09/22/21 06:13 beta-blockers Allergy Unknown difficulty Uncoded 09/22/21 06:13 (beta-adrenergic breathing IV cotrast dye Allergy Unknown Anaphylaxis Uncoded 09/22/21 06:13 Review of Systems Review of Systems Constitutional : No Weight loss, No Fever, No Chills ENT/Mouth : No sore throat, No Rhinorrhea Eyes: No Swelling, No Redness Cardiovascular : No Chest Pain, No SOB, NoEdema Respiratory : No Cough, No Sputum, No Wheezing Gastrointestinal : Positive Nausea, Positive Vomiting, no Diarrhea, positive abdominal Pain, No Hematochezia, No Melena Genitourinary : No Dysuria, No Urinary Frequency, No Hematuria, No Urgency Musculoskeletal : No joint pain, No Myalgias, No Joint Swelling Skin : No Skin Lesions, No rash Neuro : No Weakness, No Numbness, No Dizziness, No Headache Psych : No Anxiety/Panic, No Depression Heme/Lymph: No Bruising, No Lymphadenopathy Endocrine : No Polyuria, No Polydipsia All other systems reviewed and are negative. [facility] Past Medical History Attestation statement: The following information was validated with the patient. Medical History Acid reflux Asthma Depression Diabetes type 2, controlled Diabetic polyneuropathy associated with type 2 diabetes mellitus Fibromyalgia HTN (hypertension) Insomnia Iron deficiency anemia Migraine Obesity (BMI 30-39.9) Obesity due to excess calories Obesity, morbid Sebaceous gland hyperplasia of vulva Stroke Vulvar abscess Surgical History History of carpal tunnel surgery History of surgical removal of pilonidal cyst Hx of abdominoplasty Hx of adenoidectomy Hx of section Hx of craniotomy Hx of left hemicolectomy Family History Family History Father Family history of stroke Family hx of hypertension Mother Family hx of hypertension History of hyperthyroidism Hx of diabetes mellitus Hx pulmonary embolism Social History Social History Household Members: None Patient Tobacco Use Status: Never used Tobacco Advance Directives: No Physical Exam ED Vital Signs: Vital Signs - 24 hr 09/25/21 02:25 09/25/21 05:57 Temperature 97.4 F Pulse Rate 69 71 Respiratory Rate 20 16 Blood Pressure 157/75 H 132/66 Pulse Oximetry 100 97 BMI result Body Mass Index 33.3 Appearance: Alert. Oriented X3. Anxious in pain, activing dry heaving mild acute distress. Eyes: Pupils equal, round and reactive to light. ENT: Pharynx dry MM Neck: Normal inspection. Neck supple. CVS: Normal heart rate and rhythm. Pulses normal. Respiratory: No respiratory distress. Breath sounds normal. Abdomen: Soft and moderate RUQ ttp no rebound or guarding Skin: Skin warm and dry. pale skin color. Normal skin turgor. Extremities: No lower extremity edema. Neuro: Oriented X 3. No motor deficit. No sensory deficit. Course Course Course Narrative: lactic acid 2.7 - CT scan ordered LFTs elevated, US and MRI ordered, will admit for further workup empiric antibiotics ordered, possible infection suspected 425am. plan to admit patient MDM - Abdominal Pain MDM Narrative Medical decision making narrative: 56 yo female hx of HTN, DM, obesity, GERD s/p GB removal here with c/o again of RUQ pain radiating to the back with n/v the patient appears very uncomfortable. At this time will give zofran, IV dilaudid for pain, repeat labs, IV protonix, likely repeat form of imaging given repeat visit and worsening pain. Dispo per results and findings. Differential Diagnosis Differential diagnosis: Likely abdominal pain, gastritis, pancreatitis and peptic ulcer disease; Unlikely aortic dissection, acute appendicitis, endometriosis or mesenteric ischemia Lab Data Result diagrams: 09/25/21 03:02 09/25/21 03:02 Labs: Lab Results 09/25/21 09/25/21 09/25/21 Range/Units 03:02 03:02 03:02 WBC 7.7 (4.8-10.8) X10*3/uL RBC 5.01 (4.20-5.50) X10*6/uL Hgb 12.9 (12.0-16.0) g/dl Hct 40.3 (37.0-47.0) % MCV 80.4 (80.0-98.0) fL MCH 25.7 L (27.0-33.0) pg MCHC 32.0 (31.0-35.0) g/dl RDW 15.0 (11.0-16.0) % Plt Count 235 (160-400) X10*3/uL MPV 9.8 (9.4-12.3) fL Immature Gran % (Auto) 0.3 (0.0-0.4) % Neut % (Auto) 76.1 H (45-73) % Lymph % (Auto) 17.9 L (20-40) % Stephens % (Auto) 5.1 (2-11) % Eos % (Auto) 0.3 (0-4) % Baso % (Auto) 0.3 (0-2) % Lymph # (Auto) 1.4 (1.2-4.9) X10*3/uL Stephens # (Auto) 0.4 (0.1-1.2) X10*3/uL Eos # (Auto) 0.0 (0.0-0.4) X10*3/uL Baso # (Auto) 0.0 (0.0-0.2) X10*3/uL Abs Immat Gran (auto) 0.02 (0.00-0.03) X10*3/uL Absolute Neuts (auto) 5.9 (2.0-8.3) x10*3/uL Absolute Nucleated RBC 0.000 (0.0-0.012) X10*3/uL Nucleated RBC % (auto) 0.0 (0.0-0.2) /100WBC Sodium 137 (135-145) mmol/L Potassium 3.6 (3.3-5.1) mmol/L Chloride 106 (96-108) mmol/L Carbon Dioxide 19 L (22-29) mmol/L Anion Gap 16 (12-20) BUN 14 (9-16) mg/dL Creatinine 0.86 (0.5-1.4) mg/dL Estim Creat Clear Calc 79.3 Estimated GFR > 60 Random Glucose 182 H (60-115) mg/dL Lactic Acid (0.5-2.0) mmol/L Lactic Acid F/U @ 2Hr (0.5-2.0) mmol/L Calcium 10.3 H (8.4-10.2) mg/dL Magnesium 2.0 (1.6-2.6) mg/dL Total Bilirubin 1.9 H (0.0-1.0) mg/dL Direct Bilirubin 1.2 H (0.0-0.5) mg/dL AST 1397 H (5-31) U/L ALT 764 H (0-31) U/L Alkaline Phosphatase 194 H D (39-117) U/L Troponin I High Sens (<3.5-17.0) ng/L Total Protein 8.1 H (6.5-8.0) g/dL Albumin 4.4 (3.5-5.0) g/dL Lipase 38 (8-78) U/L COVID-19 (SHEILA) Negative (Negative) COVID-19 Clin Com See Note Influenza Type A (DIETER) (Negative) Influenza Type B (DIETER) (Negative) Influenza A & B Note 09/25/21 09/25/21 09/25/21 Range/Units 03:02 03:02 03:33 WBC (4.8-10.8) X10*3/uL RBC (4.20-5.50) X10*6/uL Hgb (12.0-16.0) g/dl Hct (37.0-47.0) % MCV (80.0-98.0) fL MCH (27.0-33.0) pg MCHC (31.0-35.0) g/dl RDW (11.0-16.0) % Plt Count (160-400) X10*3/uL MPV (9.4-12.3) fL Immature Gran % (Auto) (0.0-0.4) % Neut % (Auto) (45-73) % Lymph % (Auto) (20-40) % Stephens % (Auto) (2-11) % Eos % (Auto) (0-4) % Baso % (Auto) (0-2) % Lymph # (Auto) (1.2-4.9) X10*3/uL Stephens # (Auto) (0.1-1.2) X10*3/uL Eos # (Auto) (0.0-0.4) X10*3/uL Baso # (Auto) (0.0-0.2) X10*3/uL Abs Immat Gran (auto) (0.00-0.03) X10*3/uL Absolute Neuts (auto) (2.0-8.3) x10*3/uL Absolute Nucleated RBC (0.0-0.012) X10*3/uL Nucleated RBC % (auto) (0.0-0.2) /100WBC Sodium (135-145) mmol/L Potassium (3.3-5.1) mmol/L Chloride (96-108) mmol/L Carbon Dioxide (22-29) mmol/L Anion Gap (12-20) BUN (9-16) mg/dL Creatinine (0.5-1.4) mg/dL Estim Creat Clear Calc Estimated GFR Random Glucose (60-115) mg/dL Lactic Acid 2.7 H* (0.5-2.0) mmol/L Lactic Acid F/U @ 2Hr (0.5-2.0) mmol/L Calcium (8.4-10.2) mg/dL Magnesium (1.6-2.6) mg/dL Total Bilirubin (0.0-1.0) mg/dL Direct Bilirubin (0.0-0.5) mg/dL AST (5-31) U/L ALT (0-31) U/L Alkaline Phosphatase (39-117) U/L Troponin I High Sens < 3.5 (<3.5-17.0) ng/L Total Protein (6.5-8.0) g/dL Albumin (3.5-5.0) g/dL Lipase (8-78) U/L COVID-19 (SHEILA) (Negative) COVID-19 Clin Com Influenza Type A (DIETER) Negative (Negative) Influenza Type B (DIETER) Negative (Negative) Influenza A & B Note See Note 09/25/21 Range/Units 05:38 WBC (4.8-10.8) X10*3/uL RBC (4.20-5.50) X10*6/uL Hgb (12.0-16.0) g/dl Hct (37.0-47.0) % MCV (80.0-98.0) fL MCH (27.0-33.0) pg MCHC (31.0-35.0) g/dl RDW (11.0-16.0) % Plt Count (160-400) X10*3/uL MPV (9.4-12.3) fL Immature Gran % (Auto) (0.0-0.4) % Neut % (Auto) (45-73) % Lymph % (Auto) (20-40) % Stephens % (Auto) (2-11) % Eos % (Auto) (0-4) % Baso % (Auto) (0-2) % Lymph # (Auto) (1.2-4.9) X10*3/uL Stephens # (Auto) (0.1-1.2) X10*3/uL Eos # (Auto) (0.0-0.4) X10*3/uL Baso # (Auto) (0.0-0.2) X10*3/uL Abs Immat Gran (auto) (0.00-0.03) X10*3/uL Absolute Neuts (auto) (2.0-8.3) x10*3/uL Absolute Nucleated RBC (0.0-0.012) X10*3/uL Nucleated RBC % (auto) (0.0-0.2) /100WBC Sodium (135-145) mmol/L Potassium (3.3-5.1) mmol/L Chloride (96-108) mmol/L Carbon Dioxide (22-29) mmol/L Anion Gap (12-20) BUN (9-16) mg/dL Creatinine (0.5-1.4) mg/dL Estim Creat Clear Calc Estimated GFR Random Glucose (60-115) mg/dL Lactic Acid (0.5-2.0) mmol/L Lactic Acid F/U @ 2Hr 1.0 (0.5-2.0) mmol/L Calcium (8.4-10.2) mg/dL Magnesium (1.6-2.6) mg/dL Total Bilirubin (0.0-1.0) mg/dL Direct Bilirubin (0.0-0.5) mg/dL AST (5-31) U/L ALT (0-31) U/L Alkaline Phosphatase (39-117) U/L Troponin I High Sens (<3.5-17.0) ng/L Total Protein (6.5-8.0) g/dL Albumin (3.5-5.0) g/dL Lipase (8-78) U/L COVID-19 (SHEILA) (Negative) COVID-19 Clin Com Influenza Type A (DIETER) (Negative) Influenza Type B (DIETER) (Negative) Influenza A & B Note ECG Data Attestation: I personally reviewed and interpreted this ECG as follows: ECG interpretation date: 09/25/21 ECG interpretation time: 03:01 Interpretation: Rate: 69 Rhythm: NSR Advance: normal Normal P waves. Normal YASMIN. Normal QRS complex. ST T wave : no LAVELL, normal qTC: normal prior studies: no acute ischemia The study has been interpreted contemporaneously by me. Critical Care Time Critical Care Time Critical Care Time: Yes Total Critical Care Time: 35 Attestation: review of records, IVF, IV pain medications, admission to hospital I attest to this time spent taking care of the patient Discharge Plan Discharge Clinical Impression: Elevated liver enzymes Abdominal pain Qualifiers: Abdominal location: right upper quadrant Qualified Code(s): R10.11 - Right upper quadrant pain Vomiting Qualifiers: Vomiting type: unspecified Nausea presence: with nausea Qualified Code(s): R11.2 - Nausea with vomiting, unspecified Patient Disposition: Admitted As Inpatient
[2021-09-25 03:09] LABS: Basophils Percent Auto 0.3 % (0-2); Eosinophils Percent Auto 0.3 % (0-4); Hematocrit 40.3 % (37.0-47.0); Hemoglobin 12.9 g/dl (12.0-16.0); Imm Gran Abs Auto 0.02 X10*3/uL (0.00-0.03); Imm Gran Pct Auto 0.3 % (0.0-0.4); Lymphocytes Absolute Auto 1.4 X10*3/uL (1.2-4.9); Lymphocytes Percent Auto 17.9 % (20-40); MANUAL DIFF FLAG NO; Mean Corpuscular Hemoglobin 25.7 pg (27.0-33.0); Mean Corpuscular Volume 80.4 fL (80.0-98.0); Mean Platelet Volume 9.8 fL (9.4-12.3); Monocytes Absolute Auto 0.4 X10*3/uL (0.1-1.2); Monocytes Percent Auto 5.1 % (2-11); Neutrophils Absolute Auto 5.9 x10*3/uL (2.0-8.3); Neutrophils Percent Auto 76.1 % (45-73); Platelet Count 235 X10*3/uL (160-400); Red Blood Count 5.01 X10*6/uL (4.20-5.50); White Blood Count 7.7 X10*3/uL (4.8-10.8)
[2021-09-25 03:29] LABS: Lactic Acid 2.7 mmol/L (0.5-2.0)
[2021-09-25 03:33] LABS: Troponin-I High Sensitivity < 3.5 ng/L (<3.5-17.0)
[2021-09-25] MEDS: HYDROmorphone HCl 1 MG/ML SYRINGE IVPUSH (03:33)
[2021-09-25 03:34] LABS: COVID-19 Test Negative (Negative); IDNOW Serial# 55D5AD1C
[2021-09-25] MEDS: Pantoprazole Sodium 40 MG/10 ML VIAL IVPUSH ×2 (03:34→11:31)
[2021-09-25] MEDS: ondansetron HCL 4 MG/2 ML VIAL IVPUSH ×2 (03:34→22:18)
[2021-09-25] MEDS: 0.9 % Sodium Chloride 1,000 ML 999 ML IVCONT (03:34)
[2021-09-25 03:37] LABS: Alanine Aminotransferase 764 U/L (0-31); Albumin Level 4.4 g/dL (3.5-5.0); Alkaline Phosphatase 194 U/L (39-117); Anion Gap 16 (12-20); Aspartate Amino Transferase 1397 U/L (5-31); Bilirubin Direct 1.2 mg/dL (0.0-0.5); Bilirubin Total 1.9 mg/dL (0.0-1.0); Blood Urea Nitrogen 14 mg/dL (9-16); Calcium 10.3 mg/dL (8.4-10.2); Carbon Dioxide 19 mmol/L (22-29); Chloride 106 mmol/L (96-108); Creatinine Clr Calc Pharmacy 79.3; Estimated Glomerular Filt Rate > 60; Glucose Random 182 mg/dL (60-115); Lipase 38 U/L (8-78); Potassium 3.6 mmol/L (3.3-5.1); Sodium 137 mmol/L (135-145); Total Protein 8.1 g/dL (6.5-8.0)
[2021-09-25 04:01] LABS: IDNOW Serial# 08D9AD1C; Influenza A Negative (Negative); Influenza B2 Negative (Negative)
[2021-09-25 05:08] LABS: Reflex Lactate? Lactic Acid Added
[2021-09-25] MEDS: metroNIDAZOLE/NS 500 MG/100 ML PIGGYBACK 100 MG IV (05:43)
[2021-09-25] MEDS: levoFLOXacin/D5W 500 MG/100 ML PIGGYBACK 100 MG IV (05:45)
[2021-09-25] MEDS: diphenhydrAMINE HCL 50 MG/ML VIAL 25 MG IVPUSH (06:14)
[2021-09-25] MEDS: 0.9 % Sodium Chloride 1,000 ML 100 ML IVCONT ×2 (07:02→22:18)
--- NOTE | 2021-09-25 09:44 | PHA.MEDREC ---
Pharmacy Consult ? Medication Reconciliation Pharmacy has completed the medication reconciliation.
[2021-09-25 09:59] LABS: Acetaminophen LAB < 1 mcg/mL (<30)
[2021-09-25 10:27] LABS: Alanine Aminotransferase 811 U/L (0-31); Albumin Level 3.7 g/dL (3.5-5.0); Alkaline Phosphatase 178 U/L (39-117); Aspartate Amino Transferase 1180 U/L (5-31); Bilirubin Direct 1.1 mg/dL (0.0-0.5); Bilirubin Total 1.5 mg/dL (0.0-1.0); Total Protein 6.7 g/dL (6.5-8.0)
--- NOTE | 2021-09-25 11:02 | P.HPHOSP_ITS ---
History of Present Illness Date of Service: 09/25/21 Attending physician on admission: Rosa Hernandez Chief Complaint: abd pain ruq/eleavted lft's 56-year-old female with past medical history of asthma, diabetes, hypertension, obesity, migraine, also history of aneurysm bleed and stroke in 2009( was in [facility] )- patient is coming to the hospital because 2 days ago she started to having epigastric and right upper quadrant pain radiating to the right lateralside, with persistent nausea and vomiting- she came to the hospital on09/22/21: that time was discharged with ppi . patient says that she went home and subsequently continued to have right upper quadrant pain and nausea vomiting, could not tolerate food- so decided to come to the hospital. her pain she explains is constant in epigastric and right upper quadrant area, burning type, could not tell any elevating or aggravating factor. denies any fever or chills or chest pain or shortness of breath orweakness or numbness. she denies any body in the family sick like her or any new medication use. She also denies any previous episode like this. social history: Lives with herfamily- denies any history of smoking, recreation drug or etoh use. denies any excessive use of pain medications specially Tylenol. In emergency room: Found to have significantly elevated LFTs which seems slightly improving with repeat labs. new leukocytosis or fever ?US/US abdomen limited IMPRESSION: Diffusely increased echogenicity of the liver consistent with fatty infiltration. by the time reach to the ED patient went to the MRI already. will follow-up with abdominal MRI report. Review of Systems Review of Systems: As above. [facility] Medical History Acid reflux Asthma Depression Diabetes type 2, controlled Diabetic polyneuropathy associated with type 2 diabetes mellitus Fibromyalgia HTN (hypertension) Insomnia Iron deficiency anemia Migraine Obesity (BMI 30-39.9) Obesity due to excess calories Obesity, morbid Sebaceous gland hyperplasia of vulva Stroke Vulvar abscess Family History Father Family history of stroke Family hx of hypertension Mother Family hx of hypertension History of hyperthyroidism Hx of diabetes mellitus Hx pulmonary embolism Surgical History History of carpal tunnel surgery History of surgical removal of pilonidal cyst Hx of abdominoplasty Hx of adenoidectomy Hx of section Hx of craniotomy Hx of left hemicolectomy Social History Household Members: None Patient Tobacco Use Status: Never used Tobacco Advance Directives: No Meds Allergies Allergy/AdvReac Type Severity Reaction Status Date / Time amoxicillin [AMOXICILLIN] Allergy Unknown UNKNOWN, Verified 09/22/21 06:13 anaphylaxis Iodinated Contrast Media Allergy Unknown ANAPHYLAXIS Verified 09/22/21 06:13 [IODINATED CONTRAST MEDIA] morphine [MORPHINE] Allergy Unknown FEELS LIKE Verified 09/22/21 06:13 HER THROAT CLOSES AND SHE GETS SHORT OF BREATH, headache Penicillins [PENICILLINS] Allergy Unknown UNKNOWN Verified 09/22/21 06:13 beta-blockers Allergy Unknown difficulty Uncoded 09/22/21 06:13 (beta-adrenergic breathing IV cotrast dye Allergy Unknown Anaphylaxis Uncoded 09/22/21 06:13 Active Medications: Current Medications Albuterol Sulfate (Albuterol Sulfate (0.083%) 2.5 Mg/3 Ml Vial.Neb) 2.5 mg INHALE Q4-6H PRN PRN Reason: Wheezing Albuterol Sulfate (Albuterol Sulfate 90 Mcg 8 Gm Inhaler) puff INHALE Q4H PRN PRN Reason: Wheezing Aspirin (Aspirin Enteric Coated 81 Mg Tablet.) 81 mg PO DAILY [facility] Cyanocobalamin (Cyanocobalamin (Vitamin B-12) 500 Mcg Tablet) 250 mcg PO DAILY [facility] Dextrose (Dextrose 50 % 25 Gm/50 Ml Syringe) 25 gm IVPUSH Q15M PRN; Protocol PRN Reason: per Hypoglycemia Standing Ord. Famotidine (Famotidine 20 Mg Tablet) 20 mg PO DAILY [facility] Glucose (Glucose Gel 15 Gm Gel..Gram.) 15 gm PO Q15M PRN; Protocol PRN Reason: per Hypoglycemia Standing Ord. Sodium Chloride (Ns) 1,000 mls @ 100 mls/hr IVCONT .Q10H YESY Last Admin: 09/25/21 07:02 Dose: 100 mls/hr Documented by: Lactated Ringer's (Lr) 1,000 mls @ 80 mls/hr IVCONT .[id number] [facility] Insulin Human Lispro (Insulin Lispro 100 Unit/Ml 3 Ml Vial) 0 unit SUBCUT QIDACHS [facility]; Protocol Montelukast Sodium (Montelukast Sodium 10 Mg Tablet) 10 mg PO DAILY [facility] Ondansetron HCl (Ondansetron Hcl 4 Mg/2 Ml Vial) 4 mg IVPUSH Q6H PRN PRN Reason: Nausea Pantoprazole Sodium (Pantoprazole Sodium 40 Mg/10 Ml Vial) 40 mg IVPUSH DAILY [facility] Pharmacy Consult (Consult Rx Perform Med Rec) 1 each MISCELLANE ONCE PRN PRN Reason: Consult order Sertraline HCl (Sertraline Hcl 100 Mg Tablet) 200 mg PO DAILY [facility] Sodium Chloride (0.9 % Sodium Chloride Flush 3 Ml Syringe) 3 ml IVFLUSH QSHIFT [facility] Topiramate (Topiramate 100 Mg Tablet) 100 mg PO BID [facility] Zolpidem Tartrate (Zolpidem Tartrate 5 Mg Tablet) 5 mg PO BEDTIME PRN PRN Reason: Insomnia Home Medications Medication Instructions Recorded Confirmed Last Taken Type blood sugar diagnostic #10 ea 01/20/20 07/09/20 Unknown History blood-glucose meter #1 ea 01/20/20 07/09/20 Unknown History cyanocobalamin (vitamin B-12) 250 250 mcg PO DAILY 01/20/20 09/25/21 Unknown History mcg tablet hydrochlorothiazide 25 mg tablet 25 mg PO DAILY 01/20/20 09/25/21 Unknown History ibuprofen 600 mg tablet 600 mg PO TID 01/20/20 09/25/21 Unknown History sertraline 100 mg tablet 200 mg PO DAILY 01/20/20 09/25/21 Unknown History topiramate 100 mg tablet 100 mg PO BID 01/20/20 09/25/21 Unknown History albuterol sulfate 2.5 mg INHALATION Q4-6H PRN 01/23/20 09/25/21 Unknown History albuterol sulfate 90 mcg/actuation 90 mcg INHALATION Q4H PRN 01/23/20 09/25/21 Unknown History aerosol inhaler aspirin 81 mg tablet,delayed 81 mg PO DAILY 01/23/20 09/25/21 Unknown History release (Adult Low Dose Aspirin) famotidine 20 mg tablet 20 mg PO DAILY 01/23/20 09/25/21 Unknown History montelukast 10 mg tablet 10 mg PO DAILY 01/23/20 09/25/21 Unknown History (Singulair) zolpidem 5 mg tablet (Ambien) 5 mg PO BEDTIME PRN 01/23/20 09/25/21 Unknown History ferrous sulfate 325 mg (65 mg 325 mg PO DAILY 07/07/21 09/25/21 Unknown History iron) tablet,delayed release pantoprazole 20 mg tablet,delayed 1 tab PO DAILY 09/25/21 09/25/21 Unknown History release Physical Exam Vital Signs and Narrative: Vital Signs: Last Vital Signs Temp 98.5 F 09/25/21 07:51 Pulse 69 09/25/21 07:51 Resp 14 09/25/21 07:51 BP 128/72 09/25/21 07:51 Pulse Ox 100 09/25/21 07:51 BMI result Body Mass Index 33.3 Appearance: Alert.? Oriented X3.? not in distress.? Eyes: Pupils equal, round and reactive to light.?mild icteric ENT: Pharynx normal.? Moist mucous membranes. cvs: rrr, [id number] , no murmur res: clear to auscultation ,no rhonchii or wheezing abd: no rebound or guarding , epigastric and ruq tenderness , bs present. ext pulses present , no cyanosis . neuro: axo3 , nonfocal. Results Labs CBC and Chem 7: 09/25/21 03:02 09/25/21 03:02 Labs: Laboratory Results - last 24 hr 09/25/21 09/25/21 09/25/21 03:02 03:02 03:02 MCV 80.4 MCH 25.7 L MCHC 32.0 RDW 15.0 Plt Count 235 MPV 9.8 Immature Gran % (Auto) 0.3 Neut % (Auto) 76.1 H Lymph % (Auto) 17.9 L [place] % (Auto) 5.1 Eos % (Auto) 0.3 Baso % (Auto) 0.3 Lymph # (Auto) 1.4 [place] # (Auto) 0.4 Eos # (Auto) 0.0 Baso # (Auto) 0.0 Abs Immat Gran (auto) 0.02 Absolute Neuts (auto) 5.9 Absolute Nucleated RBC 0.000 Nucleated RBC % (auto) 0.0 Anion Gap 16 Estim Creat Clear Calc 79.3 Estimated GFR > 60 Random Glucose 182 H Lactic Acid Lactic Acid F/U @ 2Hr Calcium 10.3 H Magnesium 2.0 Total Bilirubin 1.9 H Direct Bilirubin 1.2 H AST 1397 H ALT 764 H Alkaline Phosphatase 194 H D Troponin I High Sens Total Protein 8.1 H Albumin 4.4 Lipase 38 Acetaminophen Cancelled COVID-19 (SHEILA) Negative COVID-19 Clin Com See Note Influenza Type A (DIETER) Influenza Type B (DIETER) Influenza A & B Note 09/25/21 09/25/21 09/25/21 03:02 03:02 03:33 MCV MCH MCHC RDW Plt Count MPV Immature Gran % (Auto) Neut % (Auto) Lymph % (Auto) [place] % (Auto) Eos % (Auto) Baso % (Auto) Lymph # (Auto) [place] # (Auto) Eos # (Auto) Baso # (Auto) Abs Immat Gran (auto) Absolute Neuts (auto) Absolute Nucleated RBC Nucleated RBC % (auto) Anion Gap Estim Creat Clear Calc Estimated GFR Random Glucose Lactic Acid 2.7 H* Lactic Acid F/U @ 2Hr Calcium Magnesium Total Bilirubin Direct Bilirubin AST ALT Alkaline Phosphatase Troponin I High Sens < 3.5 Total Protein Albumin Lipase Acetaminophen COVID-19 (SHEILA) COVID-19 Clin Com Influenza Type A (DIETER) Negative Influenza Type B (DIETER) Negative Influenza A & B Note See Note 09/25/21 09/25/21 05:38 09:32 MCV MCH MCHC RDW Plt Count MPV Immature Gran % (Auto) Neut % (Auto) Lymph % (Auto) [place] % (Auto) Eos % (Auto) Baso % (Auto) Lymph # (Auto) [place] # (Auto) Eos # (Auto) Baso # (Auto) Abs Immat Gran (auto) Absolute Neuts (auto) Absolute Nucleated RBC Nucleated RBC % (auto) Anion Gap Estim Creat Clear Calc Estimated GFR Random Glucose Lactic Acid Lactic Acid F/U @ 2Hr 1.0 Calcium Magnesium Total Bilirubin 1.5 H Direct Bilirubin 1.1 H AST 1180 H ALT 811 H Alkaline Phosphatase 178 H Troponin I High Sens Total Protein 6.7 Albumin 3.7 Lipase Acetaminophen < 1 COVID-19 (SHEILA) COVID-19 Clin Com Influenza Type A (DIETER) Influenza Type B (DIETER) Influenza A & B Note ECG Attestation: I personally reviewed and interpreted this ECG as follows: (nsr) Imaging Radiologist's Impressions: Impressions Abdomen/Pelvis CT 09/25/21 03:59 IMPRESSION: No acute findings identified in the abdomen/pelvis. Status post cholecystectomy. No biliary ductal dilatation to suggest retained stone; if clinically warranted, this may be more definitively assessed with MRCP. Abdomen Ultrasound 09/25/21 08:00 IMPRESSION: Diffusely increased echogenicity of the liver consistent with fatty infiltration. Assessment and Plan (1) Abdominal pain: Qualifiers: Abdominal location: right upper quadrant Qualified Code(s): R10.11 - Right upper quadrant pain Status: Acute (2) Elevated liver enzymes: Status: Acute Plan 56-year-old female with past medical history of asthma, diabetes, hypertension, obesity, migraine, also history of aneurysm bleed and stroke in 2009( was in [facility] )- ruq/epigastric . 1.abd pain: hepatitis serology added,monospot,veronica tylenol <1 abdominal ultrasound: Diffusely increased echogenicity of the liver consistent with fatty infiltration. mri abd -report pending hydration moniter bmp,lft, pt/ptt/inr hold statin, also avoid medications that can interfere with liver function. clear liquid diet Gi eval 2. htn: Fluctuating, in the light of persistent nausea vomiting will hold hydrochlorothiazide and monitor blood pressure. 3. dm: fs with sliding scale coverage. hold oral hypoglycemic. 4.hx of asthma: stable , continue home meds 5. depression: continue home meds 6. hx of cva/brain aneurism bleed in 2010: currently no new neurological complaints,seems fine. 7. obesity: Encouraged to lose weight, cutdown calories. 8. persistent nausea vomiting: added Zofran, gentle hydration, ppi . DVT prophylaxis: Mechanical devices. Above management discussed the patient and her daughter initially in detail length- miss initials phone number is [phone], her 's number is [phone]. patient is full code, time spent in assessment and plan coordination is 70 minute. considering significant elevated LFTs need workup and monitoring, Gi eval - patient mayneed 2 midnight stay. Quality Stroke Does the patient have a stroke diagnosis?: No VTE Prior VTE?: No VTE Risk Level:: Medical - moderate - high VTE Device Contraindication: N/A - Device Ordered VTE Drug Contraindication: N/A - Med Ordered
[2021-09-25] MEDS: Lactated Ringers 1,000 ML 80 ML IVCONT (11:21)
[2021-09-25 11:36] LABS: Glucose, Whole Blood 118 mg/dL (60-115)
[2021-09-25 11:41] LABS: INTERNATIONAL NORM RATIO 1.1 (0.9-1.1)
--- NOTE | 2021-09-25 12:23 | PM.EVENT ---
Event Note Date of Service: 09/25/21 Event Note: GI Consult-Full note dictated-History via patient with a medical charge entry specialist, and from the EMR Imp: Acute hepatitis with 3-4 days of RUQ pain, nausea, and vomiting. She had a normal liver profile on 09/22/2021 when she was in the ER for the beginning of her illness. She is s/p CCY. Her U/S, CT, and MRI all look OK. She denies any new meds, Tylenol/NSAIDs, ill contacts, suspicious foods, etc. Her PT/INR is normal and she otherwise does not show any signs of liver failure. Overall, she appears well. Diff dx: Viral hepatitis is most likely. Drug-induced hepatitis, Autoimmune hepatitis, and a biliary source seem unlikely based on her clinical history and workup thus far.. Rec: Supportive care, diet as tolerated, F/U labs in AM, check Hep A IgM/Hep B/Hep C(Hep C was neg. in 2019), check Monospot, check VONNIE and ASMA. Hold her statin and any other potential hepatotoxic drugs in the meantime. D/W patient in detail. Thanks
[2021-09-25 13:09] LABS: Monotest Negative (Negative)
--- NOTE | 2021-09-25 13:24 | CONS_ITS ---
DATE OF SERVICE: 09/25/2021 REASON FOR CONSULTATION: Acute hepatitis. HISTORY OF PRESENT ILLNESS: This has been obtained from the patient with a internist medical doctor md and from the medical record. The patient is a 56-year-old female, who describes feeling well up until about 3 days ago. At that time, she developed the onset of some right upper quadrant pain and burning with associated nausea and vomiting. She came to the ER on September 22, and at that time had a completely normal liver profile and negative CT of the abdomen. She was subsequently discharged. Over the last 3 days her vomiting has persisted, but without any signs of bleeding. She has continued with a right upper quadrant discomfort and burning. She did not notice any jaundice. She did have intermittent chills, but did not have any documented fever. During the last few days, she has not been using any significant amounts of Tylenol nor NSAIDs as she has really been unable to keep anything down. Due to the persistent symptoms, she came to the ER. She denies any signs of jaundice at home. There has been no signs of bleeding. She denies any diarrhea. Prior to the past 3 days, she was not having any GI symptoms. She has a good appetite in general up until the past 3 days. She denies any significant trouble with her stomach such as significant heartburn, dysphagia, nor chronic abdominal pain. She denies any alcohol use, nor drug use. She denies any ill contacts, suspicious food intake, new medication, nor travel. In the ER, she has been stable hemodynamically. She has been afebrile. MEDICATIONS: At home include inhalers, aspirin 81 mg atorvastatin, and empagliflozin, famotidine, iron, hydrochlorothiazide, ibuprofen, metformin montelukast, ondansetron, pantoprazole, sertraline, topiramate, Ambien, and sitagliptin. PAST MEDICAL HISTORY: Diabetes mellitus. Hyperlipidemia. Asthma. She describes a history of cardiac arrhythmia and a stroke about 10 years ago with some residual right-sided weakness. She denies any history of VA, nor kidney disease. Her surgeries include C-sections, panniculectomy, and cholecystectomy. SOCIAL HISTORY: She is . As above. FAMILY HISTORY: Noncontributory. She denies any history of liver disease. REVIEW OF SYSTEMS: CONSTITUTIONAL: Up until the past 3 days, she was feeling well with good energy and good appetite. SKIN: No rash. No pruritus. CARDIAC: No chest pain. PULMONARY: No cough. No hemoptysis. GASTROINTESTINAL: As above. PHYSICAL EXAMINATION: GENERAL: The patient is a pleasant, alert, comfortable-appearing female. HEENT: Anicteric sclerae. SKIN: Warm and dry. No obvious spider angiomata. NECK: Supple without lymphadenopathy. CARDIAC: Normal S1, S2. ABDOMEN: Soft and nondistended. Normal bowel sounds. She does have some right upper quadrant tenderness without palpable mass. EXTREMITIES: Without edema, nor palmar erythema. NEURO: Alert and oriented x 3, No asterixis LABORATORIES: On September 22, she had a completely normal liver profile. Over the last 2 or 3 years, she has had some very minimal elevation of the liver enzymes. She did have a negative VONNIE and negative hepatitis C antibody in the past. She had a smooth muscle antibody that was slightly elevated at that time. When she came back to the ER today, 3 days after the normal liver profile on September 22, her total bilirubin was 1.9, direct bilirubin 1.2, AST 1397, ALT 764, and alkaline phosphatase 194. Albumin was normal at 4.4. Lipase is 38. Normal electrolytes, BUN and creatinine. PT 13.0 with INR 1.1 today. White count 7.7, hemoglobin 12.9, platelets 235,000. Only 0.3% eosinophils. Acetaminophen level today was less than 1. Hepatitis A IgM, hepatitis B, hepatitis C, and Monospot are pending. She did have a CT scan on September 22, and again today, which were unremarkable. There was no sign of any liver disease, splenomegaly, ascites, nor biliary disease. She did have an abdominal ultrasound today as well, which showed a normal bile duct of 4 mm and no ascites. She did have a MRCP today as well, which to my reading shows a normal biliary tree without any sign of filling defects. The official reading from the radiologist is pending. IMPRESSION: Given the patient's clinical history, I would be most suspicious for an acute hepatitis in relation to a viral condition whether it be acute hepatitis A or perhaps a nonspecific virus. I would rule out hepatitis B, mononucleosis, and hepatitis C as well. I do not think, this is a drug-induced hepatitis, given normal LFT's just 3 days ago and no new medication to speak of. I doubt this is biliary based on all of her imaging studies. I do not think, this is an autoimmune hepatitis given normal LFT just 3 days ago as well Overall, she appears well and does not appear to have any signs of liver failure given her good clinical appearance, minimally elevated bilirubin, and normal PT with INR. At this point, I will continue supportive care. Her diet can be advanced as tolerated. She will have followup laboratories in the morning including liver profile, PT with INR, and chemistries. We shall await the results of her viral hepatitis studies and Monospot. The VONNIE and smooth muscle antibody have been ordered, although again I suspect those will be negative. I would hold her statin medication and any other potential hepatotoxic drugs in the meantime, although I do not think this is a drug-induced hepatitis. Certainly if the elevated enzymes persist, we could proceed with eventual liver biopsy. If she shows signs of liver failure, she should be transferred to a tertiary liver transplant center, but hopefully that will not be necessary. This has all been discussed in detail with the patient with the assistance of the internist medical doctor md, and she is comfortable with the plan. Thank you for the consultation. MD MORAIMA Garcia/SOSA / [phone] KYLE
[2021-09-25] MEDS: Ketorolac Tromethamine 15 MG/ML VIAL IVPUSH ×2 (14:15→20:05)
--- NOTE | 2021-09-25 18:13 | PC.NURSE ---
pt a&ox3, vss, pt denies any pain at this time, resting comfortably, family at bedside. POC 112 - no coverage needed per sliding scale. urine sample obtained and sent to lab.
--- NOTE | 2021-09-25 18:14 | PC.NURSE ---
RN-RN report given.
[2021-09-25 18:15] LABS: Glucose, Whole Blood 112 mg/dL (60-115)
[2021-09-25 18:27] LABS: Appearance Urine CLEAR; Color Urine DK YELLOW; Glucose Urine UA NEG (NEG); Leukocyte Esterase Urine TRACE (NEG); Nitrite Urine NEG (NEG); Urine Blood NEG (NEG); Urine Ketones NEG (NEG); Urine Protein TRACE MG/DL (NEG-TRACE)
[2021-09-25 18:41] LABS: Amphetamine Screen Urine Not Detected (Not Detect); Barbiturates, Urine Not Detected (Not Detect); Benzodiazepines Screen Urine Not Detected (Not Detect); Cannabinoid Screen Urine Not Detected (Not Detect); Cocaine Screen Urine Not Detected (Not Detect); Fentanyl, urine POSITIVE (Not Detect); Opiate Screen Urine Not Detected (Not Detect); Phencyclidine Screen Urine Not Detected (Not Detect)
[2021-09-25 18:47] LABS: Bacteria Urine 2+ /LPF; Mucus Urine 3+ /LPF; RBC Urine 0-2 /HPF (0); Squamous Epithelial Cell Urine 3+ /LPF
[2021-09-25] MEDS: Topiramate 100 MG TABLET PO (20:03)
[2021-09-25] MEDS: Insulin Lispro 100 UNIT/ML 3 ML VIAL SUBCUT (20:03)
[2021-09-25 20:14] LABS: Glucose, Whole Blood 119 mg/dL (60-115)
[2021-09-26 03:26] VITALS: BP 128/60; PULSE 54; RESP 18; TEMP 36.6; O2SAT 100
[2021-09-26 07:21] LABS: Hematocrit 36.5 % (37.0-47.0); Hemoglobin 11.5 g/dl (12.0-16.0); Mean Corpuscular HGB Conc 31.5 g/dl (31.0-35.0); Mean Corpuscular Hemoglobin 25.8 pg (27.0-33.0); Mean Platelet Volume 10.8 fL (9.4-12.3); Platelet Count 214 X10*3/uL (160-400); Red Blood Count 4.45 X10*6/uL (4.20-5.50); Red Cell Distribution Width 15.7 % (11.0-16.0); White Blood Count 4.8 X10*3/uL (4.8-10.8)
[2021-09-26 07:32] LABS: INTERNATIONAL NORM RATIO 1.2 (0.9-1.1); Prothrombin Time 13.1 SEC (9.9-13.0)
--- NOTE | 2021-09-26 07:32 | P.PNIM_ITS ---
Subjective Subjective Date of Service: 09/26/21 Interval History: abd pain ,eleavted lft's Review of Systems abdominal pain seems to be improving, still has persistent nausea vomiting intermittent unable to tolerate food yet. Denies any chest pain or shortness of breath or fever chills Physical Exam Vital Signs: Vital Signs: Last Vital Signs Temp 97.8 F 09/26/21 03:26 Pulse 54 09/26/21 03:26 Resp 18 09/26/21 03:26 BP 128/60 09/26/21 03:26 Pulse Ox 100 09/26/21 03:26 BMI result Body Mass Index 34.9 Appearance: Alert.? Oriented X3.? not in distress.? Eyes: sclera icteric.? ENT: Pharynx normal.? Moist mucous membranes. cvs: rrr, [id number] , no murmur res: clear to auscultation ,no rhonchii or wheezing abd: no rebound or guarding ,epigastric discomfort, bs present. ext pulses present , no cyanosis . neuro: axo3 , nonfocal. Objective Data Active Medications Albuterol Sulfate (Albuterol Sulfate (0.083%) 2.5 Mg/3 Ml Vial.Neb) 2.5 mg INHALE Q4H PRN PRN Reason: Wheezing Albuterol Sulfate (Albuterol Sulfate 90 Mcg 8 Gm Inhaler) 1 puff INHALE Q4H PRN PRN Reason: Wheezing Aspirin (Aspirin Enteric Coated 81 Mg Tablet.) 81 mg PO DAILY [facility] Cyanocobalamin (Cyanocobalamin (Vitamin B-12) 500 Mcg Tablet) 250 mcg PO DAILY [facility] Dextrose (Dextrose 50 % 25 Gm/50 Ml Syringe) 25 gm IVPUSH Q15M PRN; Protocol PRN Reason: per Hypoglycemia Standing Ord. Famotidine (Famotidine 20 Mg Tablet) 20 mg PO DAILY [facility] Glucose (Glucose Gel 15 Gm Gel..Gram.) 15 gm PO Q15M PRN; Protocol PRN Reason: per Hypoglycemia Standing Ord. Sodium Chloride (Ns) 1,000 mls @ 100 mls/hr IVCONT .Q10H [facility] Last Admin: 09/25/21 22:18 Dose: 100 mls/hr Documented by: KEON Lactated Ringer's (Lr) 1,000 mls @ 80 mls/hr IVCONT .[id number] [facility] Last Admin: 09/25/21 22:20 Dose: Not Given Documented by: KEON Non-Admin Reason: IV Running Insulin Human Lispro (Insulin Lispro 100 Unit/Ml 3 Ml Vial) 0 unit SUBCUT Q IDACHS [facility]; Protocol Last Admin: 09/25/21 20:03 Dose: 2 unit Documented by: KEON Ketorolac Tromethamine (Ketorolac Tromethamine 15 Mg/Ml Vial) 15 mg IVPUSH Q6H PRN PRN Reason: Pain, Mild (Pain Scale 1-3) Last Admin: 09/25/21 20:05 Dose: 15 mg Documented by: KEON Montelukast Sodium (Montelukast Sodium 10 Mg Tablet) 10 mg PO DAILY [facility] Ondansetron HCl (Ondansetron Hcl 4 Mg/2 Ml Vial) 4 mg IVPUSH Q6H PRN PRN Reason: Nausea Last Admin: 09/25/21 22:18 Dose: 4 mg Documented by: KEON Pantoprazole Sodium (Pantoprazole Sodium 40 Mg/10 Ml Vial) 40 mg IVPUSH DAILY [facility] Last Admin: 09/25/21 11:31 Dose: 40 mg Documented by: UMM Pharmacy Consult (Consult Rx Perform Med Rec) 1 each MISCELLANE ONCE PRN PRN Reason: Consult order Sertraline HCl (Sertraline Hcl 100 Mg Tablet) 200 mg PO DAILY [facility] Sodium Chloride (0.9 % Sodium Chloride Flush 3 Ml Syringe) 3 ml IVFLUSH QSHIFT [facility] Last Admin: 09/25/21 20:04 Dose: Not Given Documented by: KEON Non-Admin Reason: IV Running Topiramate (Topiramate 100 Mg Tablet) 100 mg PO BID [facility] Last Admin: 09/25/21 20:03 Dose: 100 mg Documented by: KEON Zolpidem Tartrate (Zolpidem Tartrate 5 Mg Tablet) 5 mg PO BEDTIME PRN PRN Reason: Insomnia Labs CBC & Chem 7: 09/26/21 05:59 09/26/21 05:59 Labs: Laboratory Results - last 24 hr 09/25/21 09/25/21 09/25/21 03:02 09:32 11:27 MCV MCH MCHC RDW Plt Count MPV Absolute Nucleated RBC Nucleated RBC % (auto) PT INR POC Glucose 118 H Total Bilirubin 1.5 H Direct Bilirubin 1.1 H AST 1180 H ALT 811 H Alkaline Phosphatase 178 H Total Protein 6.7 Albumin 3.7 Urine Color Urine Appearance Urine pH Ur Specific [place] Urine Protein Urine Glucose (UA) Urine Ketones Urine Blood Urine Nitrite Ur Leukocyte Esterase Urine RBC Urine WBC Ur Squamous Epith Cells Urine Bacteria Urine Mucus Urine Opiates Screen Urine Fentanyl Screen Acetaminophen Cancelled < 1 Ur Barbiturates Screen Ur Phencyclidine Scrn Ur Amphetamines Screen U Benzodiazepines Scrn Urine Cocaine Screen U Marijuana (THC) Screen Monoscreen 09/25/21 09/25/21 09/25/21 11:28 11:28 18:11 MCV MCH MCHC RDW Plt Count MPV Absolute Nucleated RBC Nucleated RBC % (auto) PT 13.0 INR 1.1 POC Glucose 112 Total Bilirubin Direct Bilirubin AST ALT Alkaline Phosphatase Total Protein Albumin Urine Color Urine Appearance Urine pH Ur Specific [place] Urine Protein Urine Glucose (UA) Urine Ketones Urine Blood Urine Nitrite Ur Leukocyte Esterase Urine RBC Urine WBC Ur Squamous Epith Cells Urine Bacteria Urine Mucus Urine Opiates Screen Urine Fentanyl Screen Acetaminophen Ur Barbiturates Screen Ur Phencyclidine Scrn Ur Amphetamines Screen U Benzodiazepines Scrn Urine Cocaine Screen U Marijuana (THC) Screen Monoscreen Negative 09/25/21 09/25/21 09/25/21 18:16 18:16 19:57 MCV MCH MCHC RDW Plt Count MPV Absolute Nucleated RBC Nucleated RBC % (auto) PT INR POC Glucose 119 H Total Bilirubin Direct Bilirubin AST ALT Alkaline Phosphatase Total Protein Albumin Urine Color DK YELLOW Urine Appearance CLEAR Urine pH 6.0 Ur Specific [place] 1.020 Urine Protein TRACE Urine Glucose (UA) NEG Urine Ketones NEG Urine Blood NEG Urine Nitrite NEG Ur Leukocyte Esterase TRACE H Urine RBC 0-2 Urine WBC 1-4 Ur Squamous Epith Cells 3+ Urine Bacteria 2+ Urine Mucus 3+ Urine Opiates Screen Not Detected Urine Fentanyl Screen POSITIVE H Acetaminophen Ur Barbiturates Screen Not Detected Ur Phencyclidine Scrn Not Detected Ur Amphetamines Screen Not Detected U Benzodiazepines Scrn Not Detected Urine Cocaine Screen Not Detected U Marijuana (THC) Screen Not Detected Monoscreen 09/26/21 05:59 MCV 82.0 MCH 25.8 L MCHC 31.5 RDW 15.7 Plt Count 214 MPV 10.8 Absolute Nucleated RBC 0.000 Nucleated RBC % (auto) 0.0 PT INR POC Glucose Total Bilirubin Direct Bilirubin AST ALT Alkaline Phosphatase Total Protein Albumin Urine Color Urine Appearance Urine pH Ur Specific [place] Urine Protein Urine Glucose (UA) Urine Ketones Urine Blood Urine Nitrite Ur Leukocyte Esterase Urine RBC Urine WBC Ur Squamous Epith Cells Urine Bacteria Urine Mucus Urine Opiates Screen Urine Fentanyl Screen Acetaminophen Ur Barbiturates Screen Ur Phencyclidine Scrn Ur Amphetamines Screen U Benzodiazepines Scrn Urine Cocaine Screen U Marijuana (THC) Screen Monoscreen Microbiology Microbiology Results: Microbiology 09/25/21 04:09 Blood Culture - Preliminary Blood - Venous No growth after 24 hours. 09/25/21 04:03 Blood Culture - Preliminary Blood - Venous No growth after 24 hours. Assessment and Plan (1) Abdominal pain: Status: Acute (2) Elevated liver enzymes: Status: Acute Plan 56-year-old female with past medical history of asthma, diabetes, hypertension, obesity, migraine, also history of aneurysm bleed and stroke in 2009( was in [facility] )- ruq/epigastric . 1. elevated LFT: hepatitis serology added,monospot,veronica tylenol <1 ?abdominal ultrasound:?Diffusely increased echogenicity of the liver consistent with fatty infiltration. mri abd -seems fine Monospot negative, VERONICA and the serology pending, hepatitis screen also pending ?hold statin, also avoid medications that can interfere with? liver function. clear liquid diet Gi eval- LFTs improving, borderline PT /inr elevated , will monitor LFTs closely. 2. htn:? Fluctuating, in the light of persistent nausea vomiting will hold hydrochlorothiazide and monitor blood pressure. 3. dm: fs with sliding scale coverage. Avoid coverage below 200 hold oral hypoglycemic. 4.hx of asthma: stable , continue home meds 5. depression: continue home meds 6. hx of cva/brain aneurism bleed in 2010: currently no new neurological complaints,seems fine. 7. obesity:? Encouraged to lose weight, cutdown calories. 8. persistent nausea vomiting/ Abdominal pain:? viral syndrome ?added Zofran, gentle hydration, ppi , added iv dilaudid for pain. ?DVT prophylaxis: Mechanical devices. need for inpatient: Persistent nausea vomiting and abdominal pain, elevated lft's Quality Stroke Does the patient have a stroke diagnosis?: No VTE Prior VTE?: No VTE Risk Level:: Medical - moderate - high VTE Device Contraindication: N/A - Device Ordered VTE Drug Contraindication: N/A - Med Ordered
[2021-09-26 07:35] LABS: Partial Thromboplastin Time 32.9 SEC (24.1-38.0)
[2021-09-26 07:44] LABS: Glucose, Whole Blood 94 mg/dL (60-115)
[2021-09-26 07:49] LABS: Alanine Aminotransferase 784 U/L (0-31); Albumin Level 3.5 g/dL (3.5-5.0); Alkaline Phosphatase 214 U/L (39-117); Anion Gap 12 (12-20); Aspartate Amino Transferase 654 U/L (5-31); Bilirubin Direct 2.8 mg/dL (0.0-0.5); Bilirubin Total 3.8 mg/dL (0.0-1.0); Blood Urea Nitrogen 8 mg/dL (9-16); Carbon Dioxide 21 mmol/L (22-29); Chloride 112 mmol/L (96-108); Creatinine Clr Calc Pharmacy 94.6; Estimated Glomerular Filt Rate > 60; Glucose Random 102 mg/dL (60-115); Potassium 3.7 mmol/L (3.3-5.1); Sodium 141 mmol/L (135-145); Total Protein 6.2 g/dL (6.5-8.0)
[2021-09-26] MEDS: Aspirin Enteric Coated 81 MG TABLET.DR PO (07:52)
[2021-09-26] MEDS: Topiramate 100 MG TABLET PO (07:52)
[2021-09-26] MEDS: Sertraline HCL 100 MG TABLET 200 MG PO (07:52)
[2021-09-26] MEDS: Famotidine 20 MG TABLET PO (07:52)
[2021-09-26] MEDS: Cyanocobalamin (Vitamin B-12) 500 MCG TABLET 250 MCG PO (07:52)
[2021-09-26] MEDS: Montelukast Sodium 10 MG TABLET PO (07:52)
[2021-09-26] MEDS: 0.9 % Sodium Chloride 1,000 ML 100 ML IVCONT ×2 (07:53→16:56)
[2021-09-26] MEDS: Pantoprazole Sodium 40 MG/10 ML VIAL IVPUSH (07:53)
[2021-09-26 07:55] VITALS: BP 134/63; PULSE 62; RESP 18; TEMP 36.1; O2SAT 95
[2021-09-26 07:58] LABS: Calcium 8.8 mg/dL (8.4-10.2)
[2021-09-26] MEDS: ondansetron HCL 4 MG/2 ML VIAL IVPUSH ×3 (09:34→22:44)
[2021-09-26] MEDS: Ketorolac Tromethamine 15 MG/ML VIAL IVPUSH (09:36)
[2021-09-26] MEDS: HYDROmorphone HCl 0.5 MG/0.5 ML SYRINGE IVPUSH ×3 (11:13→21:09)
[2021-09-26 11:20] LABS: Glucose, Whole Blood 103 mg/dL (60-115)
--- NOTE | 2021-09-26 14:18 | MHC.CM.PN ---
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
[2021-09-26 15:40] VITALS: BP 150/70; PULSE 77; RESP 18; TEMP 37.1; O2SAT 98
[2021-09-26 16:07] LABS: Glucose, Whole Blood 119 mg/dL (60-115)
[2021-09-26 19:44] VITALS: BP 132/69; PULSE 86; RESP 18; TEMP 37; O2SAT 97
[2021-09-26 20:06] LABS: Glucose, Whole Blood 120 mg/dL (60-115)
[2021-09-26 23:44] VITALS: BP 160/74; PULSE 85; RESP 18; TEMP 37.4; O2SAT 96
[2021-09-27] MEDS: HYDROmorphone HCl 0.5 MG/0.5 ML SYRINGE IVPUSH ×2 (01:06→23:15)
[2021-09-27] MEDS: 0.9 % Sodium Chloride 1,000 ML 100 ML IVCONT ×3 (01:06→23:18)
[2021-09-27] MEDS: Ketorolac Tromethamine 15 MG/ML VIAL IVPUSH (01:14)
[2021-09-27 03:28] VITALS: BP 141/65; PULSE 73; RESP 18; TEMP 36.6; O2SAT 97
[2021-09-27 06:54] VITALS: BP 128/60; PULSE 72; RESP 16; TEMP 36.5; O2SAT 98
[2021-09-27 07:11] LABS: Glucose, Whole Blood 118 mg/dL (60-115)
--- NOTE | 2021-09-27 07:24 | P.PNIM_ITS ---
Subjective Subjective Date of Service: 09/27/21 Interval History: abd pain ,eleavted lft's Review of Systems abdominal pain seems to be improving, still has persistent nausea vomiting . denies any fever or chills or cough or phlegm Physical Exam Vital Signs: Vital Signs: Last Vital Signs Temp 97.7 F 09/27/21 06:54 Pulse 72 09/27/21 06:54 Resp 16 09/27/21 06:54 BP 128/60 09/27/21 06:54 Pulse Ox 98 09/27/21 06:54 BMI result Body Mass Index 34.9 Appearance: Alert.? Oriented X3.? not in distress.? cvs: rrr, [id number] , no murmur res: clear to auscultation ,no rhonchii or wheezing abd: no rebound or guarding ,epigastric discomfort, bs present. ext pulses present , no cyanosis . neuro: axo3 , nonfocal. Objective Data Active Medications Albuterol Sulfate (Albuterol Sulfate (0.083%) 2.5 Mg/3 Ml Vial.Neb) 2.5 mg INHALE Q4H PRN PRN Reason: Wheezing Albuterol Sulfate (Albuterol Sulfate 90 Mcg 8 Gm Inhaler) 1 puff INHALE Q4H PRN PRN Reason: Wheezing Aspirin (Aspirin Enteric Coated 81 Mg Tablet.Dr) 81 mg PO DAILY [facility] Last Admin: 09/26/21 07:52 Dose: 81 mg Documented by: IGGY Cyanocobalamin (Cyanocobalamin (Vitamin B-12) 500 Mcg Tablet) 250 mcg PO DAILY [facility] Last Admin: 09/26/21 07:52 Dose: 250 mcg Documented by: IGGY Dextrose (Dextrose 50 % 25 Gm/50 Ml Syringe) 25 gm IVPUSH Q15M PRN; Protocol PRN Reason: per Hypoglycemia Standing Ord. Famotidine (Famotidine 20 Mg Tablet) 20 mg PO DAILY [facility] Last Admin: 09/26/21 07:52 Dose: 20 mg Documented by: IGGY Glucose (Glucose Gel 15 Gm Gel..Gram.) 15 gm PO Q15M PRN; Protocol PRN Reason: per Hypoglycemia Standing Ord. Hydromorphone HCl (Hydromorphone Hcl 0.5 Mg/0.5 Ml Syringe) 0.5 mg IVPUSH Q4H PRN; Protocol PRN Reason: nausea Last Admin: 09/27/21 01:06 Dose: 0.5 mg Documented by: RAYMUNDO Sodium Chloride (Ns) 1,000 mls @ 100 mls/hr IVCONT .Q10H [facility] Last Admin: 09/27/21 07:13 Dose: Not Given Documented by: KIP Non-Admin Reason: IV Running Lactated Ringer's (Lr) 1,000 mls @ 80 mls/hr IVCONT .[id number] [facility] Last Admin: 09/27/21 01:41 Dose: Not Given Documented by: RAYMUNDO Non-Admin Reason: IV Running Insulin Human Lispro (Insulin Lispro 100 Unit/Ml 3 Ml Vial) 0 unit SUBCUT QIDACHS [facility]; Protocol Last Admin: 09/27/21 07:13 Dose: Not Given Documented by: KIP Non-Admin Reason: No Insulin Coverage Ketorolac Tromethamine (Ketorolac Tromethamine 15 Mg/Ml Vial) 15 mg IVPUSH Q6H PRN PRN Reason: Pain, Mild (Pain Scale 1-3) Last Admin: 09/27/21 01:14 Dose: 15 mg Documented by: RAYMUNDO Montelukast Sodium (Montelukast Sodium 10 Mg Tablet) 10 mg PO DAILY [facility] Last Admin: 09/26/21 07:52 Dose: 10 mg Documented by: IGGY Ondansetron HCl (Ondansetron Hcl 4 Mg/2 Ml Vial) 4 mg IVPUSH Q6H PRN PRN Reason: Nausea Last Admin: 09/26/21 22:44 Dose: 4 mg Documented by: RAYMUNDO Pantoprazole Sodium (Pantoprazole Sodium 40 Mg/10 Ml Vial) 40 mg IVPUSH DAILY [facility] Last Admin: 09/26/21 07:53 Dose: 40 mg Documented by: IGGY Pharmacy Consult (Consult Rx Perform Med Rec) 1 each MISCELLANE ONCE PRN PRN Reason: Consult order Sertraline HCl (Sertraline Hcl 100 Mg Tablet) 200 mg PO DAILY [facility] Last Admin: 09/26/21 07:52 Dose: 200 mg Documented by: IGGY Sodium Chloride (0.9 % Sodium Chloride Flush 3 Ml Syringe) 3 ml IVFLUSH QSHIFT ON [facility] Last Admin: 09/27/21 07:13 Dose: Not Given Documented by: KIP Non-Admin Reason: IV Running Topiramate (Topiramate 100 Mg Tablet) 100 mg PO BID [facility] Last Admin: 09/26/21 19:58 Dose: Not Given Documented by: RAYMUNDO Non-Admin Reason: Patient Refused Zolpidem Tartrate (Zolpidem Tartrate 5 Mg Tablet) 5 mg PO BEDTIME PRN PRN Reason: Insomnia Labs CBC & Chem 7: 09/26/21 05:59 09/26/21 05:59 Labs: Laboratory Results - last 24 hr 09/26/21 09/26/21 09/26/21 05:59 05:59 07:40 PT 13.1 H INR 1.2 H APTT 32.9 Anion Gap 12 Estim Creat Clear Calc 94.6 Estimated GFR > 60 POC Glucose 94 Random Glucose 102 Calcium 8.8 D Total Bilirubin 3.8 H Direct Bilirubin 2.8 H AST 654 H ALT 784 H Alkaline Phosphatase 214 H D Total Protein 6.2 L Albumin 3.5 09/26/21 09/26/21 09/26/21 11:14 15:43 19:47 PT INR APTT Anion Gap Estim Creat Clear Calc Estimated GFR POC Glucose 103 119 H 120 H Random Glucose Calcium Total Bilirubin Direct Bilirubin AST ALT Alkaline Phosphatase Total Protein Albumin 09/27/21 07:00 PT INR APTT Anion Gap Estim Creat Clear Calc Estimated GFR POC Glucose 118 H Random Glucose Calcium Total Bilirubin Direct Bilirubin AST ALT Alkaline Phosphatase Total Protein Albumin Microbiology Microbiology Results: Microbiology 09/25/21 04:09 Blood Culture - Preliminary Blood - Venous No growth after 48 hours. 09/25/21 04:03 Blood Culture - Preliminary Blood - Venous No growth after 48 hours. Assessment and Plan (1) Abdominal pain: Status: Acute (2) Elevated liver enzymes: Status: Acute Plan 56-year-old female with past medical history of asthma, diabetes, hypertension, obesity, migraine, also history of aneurysm bleed and stroke in 2009( was in [facility] )- ruq/epigastric . 1. elevated LFT: hepatitis serology added,monospot,veronica tylenol <1 ?abdominal ultrasound:?Diffusely increased echogenicity of the liver consistent with fatty infiltration. mri abd -seems fine Monospot negative, VERONICA and the serology pending, hepatitis screen also pending ?hold statin, also avoid medications that can interfere with? liver function. clear liquid diet Gi eval- LFTs slowly improving, borderline PT /inr elevated , will monitor LFTs closely. Gi follow up 2. htn:? Fluctuating, in the light of persistent nausea vomiting will hold hydrochlorothiazide and monitor blood pressure. will add small dose amlodipine until off hctz. 3. dm: fs with sliding scale coverage. Avoid coverage below 200 hold oral hypoglycemic. 4.hx of asthma: stable , continue home meds 5. depression: continue home meds 6. hx of cva/brain aneurism bleed in 2010: currently no new neurological complaints,seems fine. 7. obesity:? Encouraged to lose weight, cutdown calories. 8. persistent nausea vomiting/ Abdominal pain:? viral syndrome ?imporivn Zofran, gentle hydration, ppi , added iv dilaudid for pain. moniter-advance diet to full liquid to see if tolerate -still has significant nausea with any p.o. intake. ?DVT prophylaxis: Mechanical devices. need for inpatient: Persistent nausea vomiting and abdominal pain, elevated lft's Quality Stroke Does the patient have a stroke diagnosis?: No VTE Prior VTE?: No VTE Risk Level:: Medical - moderate - high VTE Device Contraindication: N/A - Device Ordered VTE Drug Contraindication: N/A - Med Ordered
[2021-09-27] MEDS: Topiramate 100 MG TABLET PO ×2 (07:36→20:22)
[2021-09-27] MEDS: Sertraline HCL 100 MG TABLET 200 MG PO (07:36)
[2021-09-27] MEDS: Cyanocobalamin (Vitamin B-12) 500 MCG TABLET 250 MCG PO (07:36)
[2021-09-27] MEDS: Montelukast Sodium 10 MG TABLET PO (07:36)
[2021-09-27] MEDS: Aspirin Enteric Coated 81 MG TABLET.DR PO (07:36)
[2021-09-27] MEDS: Pantoprazole Sodium 40 MG/10 ML VIAL IVPUSH (07:36)
[2021-09-27] MEDS: Famotidine 20 MG TABLET PO (07:37)
[2021-09-27] MEDS: ondansetron HCL 4 MG/2 ML VIAL IVPUSH (07:41)
[2021-09-27 07:47] LABS: HBc Num1 0.12 S/CO (0.00-0.79); Hepatitis B Core Antibody Nonreactive (Nonreactive); Hepatitis B Surface Antigen Negative (Negative); ~HepC Num1 0.12 S/CO (0.00-0.79); ~Hepatitis C Antibody Nonreactive (Nonreactive)
[2021-09-27 08:20] LABS: INTERNATIONAL NORM RATIO 1.2 (0.9-1.1); Prothrombin Time 13.1 SEC (9.9-13.0)
[2021-09-27 08:39] LABS: Alanine Aminotransferase 543 U/L (0-31); Albumin Level 3.5 g/dL (3.5-5.0); Alkaline Phosphatase 229 U/L (39-117); Aspartate Amino Transferase 273 U/L (5-31); Bilirubin Direct 1.7 mg/dL (0.0-0.5); Bilirubin Total 2.3 mg/dL (0.0-1.0); Total Protein 6.2 g/dL (6.5-8.0)
[2021-09-27 08:58] LABS: HBS Num1 10.57 mIU/mL (0-7.99)
[2021-09-27 09:04] LABS: HBS Num2 10.93 mIU/mL (0-7.99); HBS Num3 10.57 mIU/mL (0-7.99); ~Hepatitis B Surface Antibody GRAYZONE (Nonreactive)
[2021-09-27 11:31] VITALS: BP 164/75; PULSE 57; RESP 18; TEMP 36.7; O2SAT 99
[2021-09-27 11:36] LABS: Glucose, Whole Blood 103 mg/dL (60-115)
[2021-09-27 14:06] LABS: Anti Nuclear Antibody Screen NEGATIVE (NEGATIVE)
[2021-09-27 15:41] VITALS: BP 148/65; PULSE 60; RESP 18; TEMP 36.8; O2SAT 96
[2021-09-27 15:51] LABS: Glucose, Whole Blood 110 mg/dL (60-115)
[2021-09-27] MEDS: amLODIPine Besylate 2.5 MG TABLET PO (17:02)
[2021-09-27 20:00] VITALS: BP 140/60; PULSE 62; RESP 18; TEMP 36.9; O2SAT 99
[2021-09-27 20:15] LABS: Glucose, Whole Blood 131 mg/dL (60-115)
--- NOTE | 2021-09-27 20:47 | PM.EVENT ---
Event Note Date of Service: 09/27/21 Event Note: GI-Course noted. Her LFT's are improving, including the TBili. Her PT/INR has remained stable and normal. This is c/w a resolving mild acute hepatitis. The etiology remains unclear with negative Hep B and Hep C studies, and a negative VONNIE and Monospot. The Hep A IgM is still pending, however. I would advance her diet as tolerated and discharge when stable. She should F/U with her PCP to be sure her LFT's eventually normalize. Thanks
[2021-09-27 23:13] VITALS: BP 141/66; PULSE 61; RESP 18; TEMP 36.4; O2SAT 97
[2021-09-28 06:30] LABS: Alanine Aminotransferase 361 U/L (0-31); Albumin Level 3.2 g/dL (3.5-5.0); Alkaline Phosphatase 194 U/L (39-117); Anion Gap 10 (12-20); Aspartate Amino Transferase 104 U/L (5-31); Bilirubin Direct 0.8 mg/dL (0.0-0.5); Bilirubin Total 1.3 mg/dL (0.0-1.0); Blood Urea Nitrogen 16 mg/dL (9-16); Calcium 8.4 mg/dL (8.4-10.2); Carbon Dioxide 23 mmol/L (22-29); Chloride 112 mmol/L (96-108); Creatinine Clr Calc Pharmacy 97.2; Estimated Glomerular Filt Rate > 60; Glucose Random 91 mg/dL (60-115); Potassium 3.6 mmol/L (3.3-5.1); Sodium 141 mmol/L (135-145); Total Protein 5.6 g/dL (6.5-8.0)
[2021-09-28 06:33] LABS: INTERNATIONAL NORM RATIO 1.1 (0.9-1.1)
[2021-09-28 07:23] VITALS: BP 150/78; PULSE 56; RESP 20; TEMP 36.6; O2SAT 97
[2021-09-28 07:41] LABS: Glucose, Whole Blood 87 mg/dL (60-115)
[2021-09-28] MEDS: Cyanocobalamin (Vitamin B-12) 500 MCG TABLET 250 MCG PO (09:12)
[2021-09-28] MEDS: Famotidine 20 MG TABLET PO (09:12)
[2021-09-28] MEDS: Aspirin Enteric Coated 81 MG TABLET.DR PO (09:12)
[2021-09-28] MEDS: Sertraline HCL 100 MG TABLET 200 MG PO (09:12)
[2021-09-28] MEDS: Topiramate 100 MG TABLET PO (09:13)
[2021-09-28] MEDS: Montelukast Sodium 10 MG TABLET PO (09:13)
[2021-09-28 11:10] VITALS: BP 150/77; PULSE 54; RESP 20; TEMP 36.4; O2SAT 97
[2021-09-28 11:17] LABS: Glucose, Whole Blood 127 mg/dL (60-115)
--- NOTE | 2021-09-28 14:28 | PM.DS ---
DS: Providers Provider Date of Service: 09/28/21 Date of admission: 09/25/21 10:47 Date of discharge: 09/28/21 Primary care physician: Nikki James MD Consults: 09/25/21 10:47 Consult to Gastroenterology Routine Consulting Provider: Uzair Ruiz Reason for consultation: elevated lft's Has provider been notified: No DS: Diagnosis Discharge Diagnosis (1) Acute abdominal pain in right upper quadrant: Status: Acute (2) Elevated liver enzymes: Status: Acute DS: Summary Hospital Course Hospital Course: 56-year-old female with past medical history of asthma, diabetes, hypertension, obesity, migraine, also history of aneurysm bleed and stroke in 2009( was in [facility] )- patient is coming to the hospital because 2 days ago she started to having epigastric and right upper quadrant pain radiating to the right? lateralside, with persistent nausea and vomiting- she came to the hospital on09/22/21: that time was discharged with ppi . patient says that she went home and subsequently continued to have right upper quadrant pain and nausea vomiting, could not tolerate food- so decided to come to the hospital. her pain she explains is constant in epigastric and right upper quadrant area, burning? type, could not tell any elevating or aggravating factor. hospital course CT scan of abdomen and pelvis failed to demonstrate etiology of pain. Ultrasound right upper quadrant demonstrated acute fatty liver; MRCP unremarkable. Seen in consultation by GI; hepatitis labs and transaminitis workup instituted. All studies negative. . . Hep a pending. LFTs trended downward; discussed with GI patient is tolerating a diet and will be discharged home to follow-up with PCP in 1 week and GI in 2. Time Spent with Patient Time attestation: Total time spent providing and/or coordinating discharge services: Discharge coordination time: Greater than 30 minutes Quality: Safe Use of Opioids Does Pt have an Active Cancer Diagnosis on the Problem List?: No Quality: Stroke Does the patient have a stroke diagnosis?: No Physical Exam Vital Signs: Vital Signs: Last Vital Signs Temp 97.6 F 09/28/21 11:10 Pulse 54 09/28/21 11:10 Resp 20 09/28/21 11:10 BP 150/77 H 09/28/21 11:10 Pulse Ox 97 09/28/21 11:10 BMI result Body Mass Index 34.9 Const: Other: Awake alert oriented x3 no acute distress Resp: Other: clear to auscultation bilaterally no rales rhonchi or wheezes Cardio: Other: no S4; positive S1-S2; no S3 murmurs or gallops GI: Other: soft nontender nondistended normoactive bowel sounds Extrem: Other: no edema DS: Data Data Completed and Pending Labs on day of discharge: Laboratory Results - last 24 hr 09/27/21 09/27/21 09/28/21 15:39 20:09 05:23 PT 12.0 INR 1.1 Sodium Potassium Chloride Carbon Dioxide Anion Gap BUN Creatinine Estim Creat Clear Calc Estimated GFR POC Glucose 110 131 H Random Glucose Calcium Total Bilirubin Direct Bilirubin AST ALT Alkaline Phosphatase Total Protein Albumin 09/28/21 09/28/21 09/28/21 05:23 07:33 11:06 PT INR Sodium 141 Potassium 3.6 Chloride 112 H Carbon Dioxide 23 Anion Gap 10 L BUN 16 D Creatinine 0.72 Estim Creat Clear Calc 97.2 Estimated GFR > 60 POC Glucose 87 127 H Random Glucose 91 Calcium 8.4 Total Bilirubin 1.3 H Direct Bilirubin 0.8 H AST 104 H ALT 361 H Alkaline Phosphatase 194 H Total Protein 5.6 L Albumin 3.2 L Preliminary micro results at discharge 09/25/21 04:09 Blood Culture - Preliminary Blood - Venous No growth after 48 hours. 09/25/21 04:03 Blood Culture - Preliminary Blood - Venous No growth after 48 hours. Discharge Plan Discharge Patient Disposition: Home Health Service Discharge Diagnosis: acute right upper quadrant abdominal pain Referrals: Nikki James MD [Primary Care Provider] - 1 Week Discharge Medications: Continued metformin 500 mg tablet extended release 24hr 500 mg PO BID 30 Days Qty: 60 6RF empagliflozin 25 mg tablet 25 mg PO QAM 30 Days Qty: 30 6RF sitagliptin 100 mg tablet 100 mg PO DAILY 30 Days Qty: 30 6RF atorvastatin 40 mg tablet 40 mg PO BEDTIME 90 Days Qty: 90 2RF ondansetron 4 mg tablet,disintegrating 4 mg PO Q8H 4 Days Qty: 12 0RF pantoprazole 20 mg tablet,delayed release (DR/EC) 1 tab PO DAILY 0RF sertraline 100 mg tablet 200 mg PO DAILY 0RF hydrochlorothiazide 25 mg tablet 25 mg PO DAILY 0RF cyanocobalamin (vitamin B-12) 250 mcg tablet 250 mcg PO DAILY 0RF topiramate 100 mg tablet 100 mg PO BID 0RF ibuprofen 600 mg tablet 600 mg PO TID 0RF (DME) blood sugar diagnostic Strip See Rx Instructions ea Not Applicable TID Qty: 10 0RF Rx Instructions: As directed (DME) blood-glucose meter Kit See Rx Instructions ea .ROUTE DIRECTED Qty: 1 0RF Rx Instructions: As directed albuterol sulfate 90 mcg/actuation HFA aerosol inhaler 90 mcg inhalation Q4H PRN (Reason: Wheezing) 0RF albuterol sulfate 2.5 mg /3 mL (0.083 %) solution for nebulization 2.5 mg inhalation Q4-6H PRN (Reason: Wheezing) 0RF zolpidem [Ambien] 5 mg tablet 5 mg PO BEDTIME PRN (Reason: Insomnia) 0RF famotidine 20 mg tablet 20 mg PO DAILY 0RF montelukast [Singulair] 10 mg tablet 10 mg PO DAILY 0RF aspirin [Adult Low Dose Aspirin] 81 mg tablet,delayed release (DR/EC) 81 mg PO DAILY 0RF (DME) FreeStyle Lite Strips Strip See Rx Instructions .ROUTE .MEDSUPPLY Qty: 50 11RF Rx Instructions: 2 times a day ferrous sulfate 325 mg (65 mg iron) tablet,delayed release (DR/EC) 325 mg PO DAILY 0RF Discharge Orders: Discharge Order (Routine); Ordered 09/28/21 Ordered By: García Moore Diet: advance to usual diet Activity on Discharge: As tolerated Stand Alone Forms: Patient Portal Discharge page Care Plan Goals: advance your diet as tolerated; continue all meds as ordered Health Concerns: need to follow up with PCP in 1 week for repeat liver function test and follow-up of hepatitis a antibody Plan of Treatment: resume all outpatient therapies Assessment: as per DC summary
--- NOTE | 2021-09-28 15:11 | MHC.CM.PN ---
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 She has arranged for transportation. Original Note: Female 56 DX Elevated LFTs
[2021-09-29 03:50] LABS: Hepatitis A Antibody IgM 0.13 Index (0-0.79); ~Hepatitis A Antibody IgM Nonreactive (Nonreactive)
[2021-09-29 13:42] LABS: Smooth Muscle Antibody 41 U (<20)
== END 2021-09-28 17:00 | disposition home health service (06) ==
LOC: HO.ED 04:55 → HO.EDOVER 11:08 → HO.S3 16:06
PROVIDERS: Internal Medicine; Student in an Organized Health Care Education/Training Program; Admitting Provider Internal Medicine; Emergency Provider Emergency Medicine; PCP Family Medicine; Visit Provider Hospitalist
DX: R10.11 Right upper quadrant pain (principal); R74.8 Abnormal levels of other serum enzymes; R11.2 Nausea with vomiting, unspecified; K21.9 Gastro-esophageal reflux disease without esophagitis; E11.9 Type 2 diabetes mellitus without complications; E11.42 Type 2 diabetes mellitus with diabetic polyneuropathy; E78.5 Hyperlipidemia, unspecified; J45.909 Unspecified asthma, uncomplicated; E66.01 Morbid (severe) obesity due to excess calories; M79.7 Fibromyalgia; I69.351 Hemiplegia and hemiparesis following cerebral infarction affecting right dominant side; Z68.33 Body mass index [BMI] 33.0-33.9, adult; Z20.822 Contact with and (suspected) exposure to COVID-19; Z86.79 Personal history of other diseases of the circulatory system; Z90.49 Acquired absence of other specified parts of digestive tract; Z88.0 Allergy status to penicillin; Z88.8 Allergy status to other drugs, medicaments and biological substances; Z88.6 Allergy status to analgesic agent; Z88.1 Allergy status to other antibiotic agents; Z91.041 Radiographic dye allergy status; Z79.4 Long term (current) use of insulin; Z79.899 Other long term (current) drug therapy
CPT/HCPCS: 36415; 74176; 74181; 76705; 80048; 80076; 80143; 80307; 81001; 82947; 83605; 83690; 83735; 84484; 85025; 85027; 85610; 85730; 86015; 86038; 86039; 86308; 86704; 86706; 86709; 86803; 87040; 87340; 87502; 87635; 93005; 96361; 96365; 96375; 96376; 99218; 99285; J1170; J1200; J1885; J1956; J2405

== ENCOUNTER 2022-02-22 11:19 | Outpatient (REF) | payer OTHER, SELFPAY ==
[2022-02-22 11:42] LABS: MANUAL DIFF FLAG NO
[2022-02-22 12:39] LABS: Basophils Percent Auto 0.5 % (0-2); Eosinophils Absolute Auto 0.5 X10*3/uL (0.0-0.4); Eosinophils Percent Auto 6.3 % (0-4); Hematocrit 42.3 % (37.0-47.0); Imm Gran Abs Auto 0.02 X10*3/uL (0.00-0.03); Imm Gran Pct Auto 0.3 % (0.0-0.4); Lymphocytes Absolute Auto 2.1 X10*3/uL (1.2-4.9); Lymphocytes Percent Auto 27.1 % (20-40); Mean Corpuscular HGB Conc 30.7 g/dl (31.0-35.0); Mean Corpuscular Hemoglobin 25.5 pg (27.0-33.0); Mean Corpuscular Volume 83.1 fL (80.0-98.0); Mean Platelet Volume 10.5 fL (9.4-12.3); Monocytes Absolute Auto 0.5 X10*3/uL (0.1-1.2); Monocytes Percent Auto 5.9 % (2-11); Neutrophils Absolute Auto 4.7 x10*3/uL (2.0-8.3); Neutrophils Percent Auto 59.9 % (45-73); Platelet Count 272 X10*3/uL (160-400); Red Blood Count 5.09 X10*6/uL (4.20-5.50); Red Cell Distribution Width 15.5 % (11.0-16.0); White Blood Count 7.8 X10*3/uL (4.8-10.8)
[2022-02-22 13:23] LABS: Erythrocyte Sedimentation Rate 16 MM/HR (0-20)
[2022-02-23 14:36] LABS: Alpha 1 Anti-trypsin 130 mg/dL (83-199)
[2022-03-02 16:37] LABS: Asperg fumigatus Precip Abs NEGATIVE (NEGATIVE); Micropoly faeni Abs NEGATIVE (NEGATIVE); Pigeon serum Abs NEGATIVE (NEGATIVE); Saccharo pora viridis Abs NEGATIVE (NEGATIVE); Thermo candidus Abs NEGATIVE (NEGATIVE); Thermoa vulgaris #1 NEGATIVE (NEGATIVE)
== END 2022-02-22 11:20 | disposition home or self-care (01) ==
LOC: HO.LAB 11:19
PROVIDERS: PCP Family Medicine; Visit Provider Hospitalist
DX: J45.909 Unspecified asthma, uncomplicated (principal); R91.8 Other nonspecific abnormal finding of lung field; J45.40 Moderate persistent asthma, uncomplicated; K21.9 Gastro-esophageal reflux disease without esophagitis
CPT/HCPCS: 36415; 82103; 82785; 85025; 85652; 86003; 86331; 86606; 86609; 99202

== ENCOUNTER 2022-04-01 13:06 | Outpatient (REF) | payer OTHER, SELFPAY ==
--- NOTE | 2022-04-01 17:45 | PFT_ITS ---
Forced vital capacity 80%, FEV1 of 78%, FEV1/FVC ratio is 79. [id number] of 68% and MVV is 82%. Post bronchodilator therapy, there is a slight improvement in FEV1 and significant improvement in [id number]. Total lung capacity 90%. Residual volume 93%. Diffusion capacity 97%. CONCLUSION: There is evidence of a mild degree of obstructive airway disorder with good response to bronchodilator therapy. This finding is consistent with mild bronchial asthma. Clinical correlation is recommended. MD JOSEPHINE Ayala/SOSA / [phone]
== END 2022-04-01 13:07 | disposition home or self-care (01) ==
LOC: HO.RESP 13:06
PROVIDERS: PCP Family Medicine; Visit Provider Hospitalist
DX: J45.40 Moderate persistent asthma, uncomplicated (principal)
CPT/HCPCS: 94060; 94727; 94729

== ENCOUNTER 2022-05-13 11:02 | Outpatient (REF) | payer OTHER, SELFPAY ==
--- NOTE | ~2022-05-13 | XR_ITS ---
EXAMINATION: XR chest 2V CLINICAL INFORMATION: Reason for Exam R07.9 - Chest pain, unspecified COMPARISON: Chest radiograph 12/07/2019 TECHNIQUE: 2 views of the chest FINDINGS: Clear lungs. No pneumothorax or pleural effusion. Normal cardiomediastinal silhouette. XR/XR chest 2V IMPRESSION: * Clear lungs.
[2022-05-13 11:56] LABS: MANUAL DIFF FLAG NO
[2022-05-13 12:03] LABS: Basophils Absolute Auto 0.1 X10*3/uL (0.0-0.2); Basophils Percent Auto 0.8 % (0-2); Eosinophils Absolute Auto 0.3 X10*3/uL (0.0-0.4); Eosinophils Percent Auto 4.5 % (0-4); Hematocrit 44.1 % (37.0-47.0); Hemoglobin 14.1 g/dl (12.0-16.0); Imm Gran Abs Auto 0.02 X10*3/uL (0.00-0.03); Imm Gran Pct Auto 0.3 % (0.0-0.4); Lymphocytes Absolute Auto 1.7 X10*3/uL (1.2-4.9); Lymphocytes Percent Auto 25.9 % (20-40); Mean Corpuscular Hemoglobin 25.9 pg (27.0-33.0); Mean Corpuscular Volume 81.1 fL (80.0-98.0); Mean Platelet Volume 9.6 fL (9.4-12.3); Monocytes Absolute Auto 0.4 X10*3/uL (0.1-1.2); Monocytes Percent Auto 6.7 % (2-11); Neutrophils Absolute Auto 3.9 x10*3/uL (2.0-8.3); Neutrophils Percent Auto 61.8 % (45-73); Platelet Count 265 X10*3/uL (160-400); Red Blood Count 5.44 X10*6/uL (4.20-5.50); Red Cell Distribution Width 16.3 % (11.0-16.0); White Blood Count 6.4 X10*3/uL (4.8-10.8)
[2022-05-13 12:42] LABS: Erythrocyte Sedimentation Rate 16 MM/HR (0-20)
[2022-05-13 12:43] LABS: Alanine Aminotransferase 41 U/L (0-31); Albumin Level 4.5 g/dL (3.5-5.0); Alkaline Phosphatase 85 U/L (39-117); Anion Gap 11 (12-20); Aspartate Amino Transferase 40 U/L (5-31); Bilirubin Direct 0.3 mg/dL (0.0-0.5); Bilirubin Total 0.7 mg/dL (0.0-1.0); Blood Urea Nitrogen 8 mg/dL (9-16); Calcium 9.9 mg/dL (8.4-10.2); Carbon Dioxide 27 mmol/L (22-29); Chloride 105 mmol/L (96-108); Estimated Glomerular Filt Rate > 60; Glucose Random 130 mg/dL (60-115); Sodium 139 mmol/L (135-145); Total Protein 7.9 g/dL (6.5-8.0)
[2022-05-16 22:39] LABS: Immunoglobulin E 227 kU/L (<OR=114)
[2022-05-17 10:44] LABS: Anti Nuclear Antibody Screen NEGATIVE (NEGATIVE)
== END 2022-05-13 11:03 | disposition home or self-care (01) ==
LOC: HO.XRAY 11:02
PROVIDERS: PCP Family Medicine; Visit Provider Hospitalist
DX: J45.40 Moderate persistent asthma, uncomplicated (principal); R07.9 Chest pain, unspecified; K21.9 Gastro-esophageal reflux disease without esophagitis
CPT/HCPCS: 36415; 71046; 80048; 80076; 82785; 85025; 85652; 86038; 86039; 99212

== ENCOUNTER 2022-05-31 18:13 | Emergency (ER) | payer OTHER, SELFPAY ==
--- NOTE | ~2022-05-31 | XR_ITS ---
EXAMINATION: XR CHEST CLINICAL INFORMATION: Shortness of breath COMPARISON: Prior chest April 2022 TECHNIQUE: 2 views of the chest were obtained. FINDINGS: No significant abnormality is noted involving the heart, lungs, mediastinum, bony thorax or soft tissues. XR/XR chest 2V IMPRESSION: Unremarkable examination.
[2022-05-31 18:16] VITALS: BP 153/80; PULSE 88; RESP 22; TEMP 36.1; O2SAT 99; BMI 34.7
--- NOTE | 2022-05-31 18:16 | ED.CHESTPAIN ---
HPI - Chest Pain General Chief Complaint: Chest Pain <Ivanna Johnson CNP - Last Filed: 05/31/22 18:20> Stated Complaint: Chest and lung pain <Ivanna Johnson CNP - Last Filed: 05/31/22 18:20> Time Seen by Provider: 05/31/22 20:09 <Ivanna Johnson CNP - Last Filed: 05/31/22 18:20> Source: patient <Yonis Kaplan MD - Last Filed: 05/31/22 22:17> Mode of arrival: ambulatory <Yonis Kaplan MD - Last Filed: 05/31/22 22:17> Limitations: language barrier (Pashto speaking only, environmental emergencies planner used) <Yonis Kaplan MD - Last Filed: 05/31/22 22:17> History of Present Illness HPI narrative: 56-year-old female who presents emergency department for evaluation of chest pain x1 week. She states that the chest pain was initially intermittent, located in the center and sides of her chest. The pain was a sharp stabbing pain. She states that last night at around 19:00 hours the pain became worse. She states the pain was constant and was 10/10. The pain is worse with breathing and with movement. She states that she does have shortness of breath but she believes that is caused by her asthma. She denied fever, chills, rhinorrhea, sore throat, cough, nausea, vomiting diarrhea. The patient states she was taking Tylenol with no relief of the pain. <Yonis Kaplan MD - Last Filed: 05/31/22 22:17> Related Data Home Medications: Home Medications Medication Instructions Recorded Confirmed blood sugar diagnostic #10 ea 01/20/20 09/27/21 blood-glucose meter #1 ea 01/20/20 09/27/21 cyanocobalamin (vitamin B-12) 250 250 mcg PO DAILY 01/20/20 09/25/21 mcg tablet hydrochlorothiazide 25 mg tablet 25 mg PO DAILY 01/20/20 09/25/21 sertraline 100 mg tablet 200 mg PO DAILY 01/20/20 09/25/21 topiramate 100 mg tablet 100 mg PO BID 01/20/20 09/25/21 aspirin 81 mg tablet,delayed 81 mg PO DAILY 01/23/20 09/25/21 release (Adult Low Dose Aspirin) montelukast 10 mg tablet 10 mg PO DAILY 01/23/20 09/25/21 (Singulair) zolpidem 5 mg tablet (Ambien) 5 mg PO BEDTIME PRN Insomnia 01/23/20 09/25/21 ferrous sulfate 325 mg (65 mg 325 mg PO DAILY 07/07/21 09/25/21 iron) tablet,delayed release pantoprazole 20 mg tablet,delayed 1 tab PO DAILY 09/25/21 09/25/21 release beclomethasone dipropionate 80 0 mcg inhalation 02/22/22 mcg/actuation HFA breath activated aerosol (Qvar RediHaler) buspirone 10 mg tablet 10 mg PO BID 02/22/22 ibuprofen 600 mg tablet 600 mg PO TID PRN 02/22/22 lisinopril 20 mg tablet 20 mg PO DAILY 02/22/22 lorazepam 0.5 mg tablet 0.5 mg PO BEDTIME PRN 02/22/22 levocetirizine 5 mg tablet 5 mg PO DAILY 05/13/22 Previous Rx's Medication Instructions Recorded blood sugar diagnostic (FreeStyle #50 ea 06/22/21 Lite Strips) sitagliptin phosphate 100 mg tablet 100 mg PO DAILY 30 days #30 tabs 08/19/21 ondansetron 4 mg disintegrating 4 mg PO Q8H 4 days #12 tabs 09/22/21 tablet metformin 500 mg tablet,extended 500 mg PO BID 30 days #60 tabs 02/17/22 release 24hr albuterol sulfate 2.5 mg/3 mL 2.5 mg (3 mL) inhalation Q6H PRN 02/22/22 (0.083 %) solution for nebulization shortness of breath or wheezing 30 days #180 mL albuterol sulfate 90 mcg/actuation 2 inh inhalation Q6H PRN shortness 02/22/22 aerosol inhaler of breath or wheezing 30 days #18 grams prednisone 20 mg tablet See Rx Instructions PO DAILY 10 02/22/22 days #15 tabs umeclidinium 62.5 mcg-vilanterol 1 inh inhalation DAILY 30 days #60 02/22/22 25 mcg/actuation powdr for ea inhalation (Anoro Ellipta) empagliflozin 25 mg tablet 25 mg PO QAM 30 days #30 tabs 03/31/22 oxycodone 5 mg tablet 5 mg PO Q4H PRN pain #14 tabs 05/31/22 <Ivanna Johnson CNP - Last Filed: 05/31/22 18:20> Allergies/Adverse Reactions: Allergies Allergy/AdvReac Type Severity Reaction Status Date / Time amoxicillin [AMOXICILLIN] Allergy Unknown UNKNOWN, Verified 05/13/22 11:08 anaphylaxis Iodinated Contrast Media Allergy Unknown ANAPHYLAXIS Verified 05/13/22 11:08 [IODINATED CONTRAST MEDIA] morphine [MORPHINE] Allergy Unknown FEELS LIKE Verified 05/13/22 11:08 HER THROAT CLOSES AND SHE GETS SHORT OF BREATH, headache Penicillins [PENICILLINS] Allergy Unknown UNKNOWN Verified 05/13/22 11:08 beta-blockers Allergy Unknown difficulty Uncoded 05/13/22 11:08 (beta-adrenergic breathing IV cotrast dye Allergy Unknown Anaphylaxis Uncoded 05/13/22 11:08 <Ivanna Johnson CNP - Last Filed: 05/31/22 18:20> Review of Systems Review of Systems: Yes all other systems are reviewed and are negative <Yonis Kaplan MD - Last Filed: 05/31/22 22:17> [facility] Past Medical History [facility] Narrative: Past medical history: Reviewed below. The patient states she had a bleeding aneurysm and stroke in 2009 and is also had a TIA in the past. She denies tobacco, alcohol and drug use. <Yonis Kaplan MD - Last Filed: 05/31/22 22:17> Medical History: Medical History Acid reflux Asthma Asthma Chest pain Depression Diabetes type 2, controlled Diabetic polyneuropathy associated with type 2 diabetes mellitus Fibromyalgia HTN (hypertension) Insomnia Iron deficiency anemia Migraine Obesity (BMI 30-39.9) Obesity due to excess calories Obesity, morbid Sebaceous gland hyperplasia of vulva Stroke Vulvar abscess <Ivanna Johnson CNP - Last Filed: 05/31/22 18:20> Surgical History: Surgical History History of carpal tunnel surgery History of surgical removal of pilonidal cyst Hx of abdominoplasty Hx of adenoidectomy Hx of section Hx of craniotomy Hx of left hemicolectomy <Ivanna Johnson CNP - Last Filed: 05/31/22 18:20> Family History Family History: Family History Father Family history of stroke Family hx of hypertension Mother Family hx of hypertension History of hyperthyroidism Hx of diabetes mellitus Hx pulmonary embolism <Ivanna Johnson CNP - Last Filed: 05/31/22 18:20> Social History Social History: Social History Household Members: None Patient Tobacco Use Status: Never used Tobacco Advance Directives: No Advance Directives Information Provided: No service: No Current occupational status: unemployed <Ivanna Johnson CNP - Last Filed: 05/31/22 18:20> Physical Exam Vital Signs: Vital Signs: Last Vital Signs Temp 98.5 F 05/31/22 19:37 Pulse 73 05/31/22 19:37 Resp 20 05/31/22 19:37 BP 121/63 05/31/22 19:37 Pulse Ox 96 05/31/22 19:37 O2 Del Method 05/31/22 19:37 BMI result Body Mass Index 34.7 <Ivanna Sairakenn Johnson CNP - Last Filed: 05/31/22 18:20> Vital Signs: Last Vital Signs Temp 98.5 F 05/31/22 19:37 Pulse 73 05/31/22 19:37 Resp 20 05/31/22 19:37 BP 121/63 05/31/22 19:37 Pulse Ox 96 05/31/22 19:37 O2 Del Method 05/31/22 19:37 BMI result Body Mass Index 34.7 <Yonis Kaplan MD - Last Filed: 05/31/22 22:17> Const: General: cooperative and no acute distress <Yonis Kaplan MD - Last Filed: 05/31/22 22:17> Orientation/consciousness: oriented to person and oriented to place <Yonis Kaplan MD - Last Filed: 05/31/22 22:17> Limitations: no limitations <Yonis Kaplan MD - Last Filed: 05/31/22 22:17> HEENT: Head: Yes normal to inspection, Yes normocephalic and Yes atraumatic <Yonis Kaplan MD - Last Filed: 05/31/22 22:17> Ears: external ears normal <Yonis Kaplan MD - Last Filed: 05/31/22 22:17> General nose exam: Normal external nose present <Yonis Kaplan MD - Last Filed: 05/31/22 22:17> Face and sinus: Yes normal facial exam <Yonis Kaplan MD - Last Filed: 05/31/22 22:17> Mouth: Normal oral and palatal mucosa present <Yonis Kaplan MD - Last Filed: 05/31/22 22:17> Throat: Yes posterior oropharynx normal <Yonis Kaplan MD - Last Filed: 05/31/22 22:17> Eyes: General: appearance normal, both eyes and all related structures <Yonis Kaplan MD - Last Filed: 05/31/22 22:17> Pupils: Equal, round and reactive pupils present <Yonis Kaplan MD - Last Filed: 05/31/22 22:17> Neck: Neck: Yes normal visual inspection, Yes no lymphadenopathy, Yes trachea midline and Yes supple <Yonis Kaplan MD - Last Filed: 05/31/22 22:17> Chest: Other: Patient has tenderness with palpation of the costochondral joints of her anterior chest <Yonis Kaplan MD - Last Filed: 05/31/22 22:17> Resp: Effort & Inspection: normal respiratory effort and able to speak in complete sentences <MD Andres Lopez Last Filed: 05/31/22 22:17> Auscultation: clear to auscultation bilaterally <MD Andres Lopez Last Filed: 05/31/22 22:17> Cardio: Rate: regular rate <MD Andres Lopez Last Filed: 05/31/22 22:17> Rhythm: regular rhythm <MD Andres Lopez Last Filed: 05/31/22 22:17> Heart sounds: S1 normal heart sound present, S2 normal heart sound present and no murmurs <Yonis Kaplan MD - Last Filed: 05/31/22 22:17> GI: Inspection: Yes normal to inspection <Yonis Kaplan MD - Last Filed: 05/31/22 22:17> Palpation (GI): Soft to palpation, nontender and no guarding <Yonis Kaplan MD - Last Filed: 05/31/22 22:17> Auscultation: normal bowel sounds <Yonis Kaplan MD - Last Filed: 05/31/22 22:17> : General: Yes no CVA tenderness <Yonis Kaplan MD - Last Filed: 05/31/22 22:17> Back/Spine/Pelvis: Back: no CVA tenderness <Yonis Kaplan MD - Last Filed: 05/31/22 22:17> Skin: General skin exam: no rashes or lesions noted <Yonis Kaplan MD - Last Filed: 05/31/22 22:17> Neuro: General: oriented to person and oriented to place <Yonis Kaplan MD - Last Filed: 05/31/22 22:17> Cranial nerves: Yes CN's II-XII intact bilaterally and Yes Equal, round and reactive pupils present <Yonis Kaplan MD - Last Filed: 05/31/22 22:17> Cognition (Neuro): normal cognition <Yonis Kaplan MD - Last Filed: 05/31/22 22:17> Motor exam (neuro): 5/5 motor strength present throughout <Yonis Kaplan MD - Last Filed: 05/31/22 22:17> Extrem: General: Yes normal to inspection <Yonis Kaplan MD - Last Filed: 05/31/22 22:17> Psych: Appearance: grossly normal <Yonis Kaplan MD - Last Filed: 05/31/22 22:17> Speech and movement: Normal speech and movement present <Yonis Kaplan MD - Last Filed: 05/31/22 22:17> Affect: normal affect <Yonis Kaplan MD - Last Filed: 05/31/22 22:17> Attitude: cooperative <Yonis Kaplan MD - Last Filed: 05/31/22 22:17> Thought process: Normal thought process present <Yonis Kaplan MD - Last Filed: 05/31/22 22:17> Thought content: Normal thought content present <Yonis Kaplan MD - Last Filed: 05/31/22 22:17> Course Course Course Narrative: This is an RME: Additional HPI, ROS, PE not included below will be deferred to primary provider. Patient is a 56 year old female complainig of Chest pain, sub sternal x 1 week intermittently, dull. Since yesterday constant, increased intensity feels like someone punched me in the chest difficulty breathing, pressure sensation. Denies any history of similar pain in the past. Also has non-productive cough. Hx of Asthma and COPD, symptoms unrelieved with inhalers. Denies hx of DVT, PE. Plan: labs, viral testing, EKG, CXR <Ivanna Johnson CNP - Last Filed: 05/31/22 18:20> Medications Administered Discontinued Medications Generic Name Dose Route Start Last Admin Trade Name Freq PRN Reason Stop Dose Admin Oxycodone HCl 10 mg 05/31/22 21:50 05/31/22 21:58 Oxycodone Hcl Immed Release 5 Mg Tablet PO 05/31/22 21:51 10 mg ONCE STA Administration <Ivanna Johnson CNP - Last Filed: 05/31/22 18:20> Medications Administered Discontinued Medications Generic Name Dose Route Start Last Admin Trade Name Freq PRN Reason Stop Dose Admin Oxycodone HCl 10 mg 05/31/22 21:50 05/31/22 21:58 Oxycodone Hcl Immed Release 5 Mg Tablet PO 05/31/22 21:51 10 mg ONCE STA Administration <Yonis Kaplan MD - Last Filed: 05/31/22 22:17> Medical Decision Making Medical Decision Making MDM Narrative: 56-year-old female who presents emergency department for evaluation of intermittent chest pain x1 week with the pain becoming constant last night at around 19:00 hours, pain is located in her anterior chest and goes down the sides of her chest as well, the pain is sharp, stabbing pain which is been constant and 10/10. Vital signs did reveal an elevated blood pressure of 153/89 elevated respiratory of 22 which improved without treatment here in the emergency department. Physical examination did reveal tenderness palpation of her anterior chest along the costochondral joints. Laboratory evaluation, chest x-ray and EKG were ordered by provider in triage. 2210: My independent interpretation the patient's laboratory/chest x-ray and EKG data is as follows: CBC was normal. CMP did reveal slight elevation in her AST and ALT 42 and 50 and she states she has had some the patient liver tests in the past. Patient's COVID-19 and influenza tests were negative. The patient's high sensitive troponin I was below detectable limits. Patient's chest x-ray and 12 EKG were unremarkable. Given these findings, I believe that the patient's pain is most likely secondary to costochondritis, she may possibly have viral URI. Discuss this with the patient. The patient cannot take anti-inflammatory medications secondary to stomach issues and states she has been able to tolerate oxycodone in the past. The patient was treated with oxycodone 10 mg orally. She was given a prescription for oxycodone 5 mg every 4-6 hours as needed for pain. She was given printed and verbal instructions discharged home. <Yonis Kaplan MD - Last Filed: 05/31/22 22:17> Lab Data [facility] Lab Attestation statement: I reviewed the patient's lab results. <Yonis Kaplan MD - Last Filed: 05/31/22 22:17> Please see [facility] for discussion <Yonis Kaplan MD - Last Filed: 05/31/22 22:17> Result Diagrams: 05/31/22 18:56 05/31/22 18:56 <Ivanna Johnson CNP - Last Filed: 05/31/22 18:20> Labs: Lab Results 05/31/22 05/31/22 05/31/22 Range/Units 18:56 18:56 18:56 WBC 7.4 (4.8-10.8) X10*3/uL RBC 4.84 (4.20-5.50) X10*6/uL Hgb 12.8 (12.0-16.0) g/dl Hct 39.4 (37.0-47.0) % MCV 81.4 (80.0-98.0) fL MCH 26.4 L (27.0-33.0) pg MCHC 32.5 (31.0-35.0) g/dl RDW 15.8 (11.0-16.0) % Plt Count 272 (160-400) X10*3/uL MPV 10.0 (9.4-12.3) fL Immature Gran % (Auto) 0.3 (0.0-0.4) % Neut % (Auto) 59.1 (45-73) % Lymph % (Auto) 27.8 (20-40) % Isabela % (Auto) 6.3 (2-11) % Eos % (Auto) 6.0 H (0-4) % Baso % (Auto) 0.5 (0-2) % Lymph # (Auto) 2.0 (1.2-4.9) X10*3/uL Isabela # (Auto) 0.5 (0.1-1.2) X10*3/uL Eos # (Auto) 0.4 (0.0-0.4) X10*3/uL Baso # (Auto) 0.0 (0.0-0.2) X10*3/uL Abs Immat Gran (auto) 0.02 (0.00-0.03) X10*3/uL Absolute Neuts (auto) 4.4 (2.0-8.3) x10*3/uL Absolute Nucleated RBC 0.000 (0.0-0.012) X10*3/uL Nucleated RBC % (auto) 0.0 (0.0-0.2) /100WBC PT 10.8 (10.0-13.1) SEC INR 0.9 (0.9-1.1) Sodium 142 (135-145) mmol/L Potassium 3.5 (3.3-5.1) mmol/L Chloride 105 (96-108) mmol/L Carbon Dioxide 23 (22-29) mmol/L Anion Gap 18 (12-20) BUN 17 H (9-16) mg/dL Creatinine 0.85 (0.5-1.4) mg/dL Estim Creat Clear Calc 76.2 Estimated GFR > 60 Random Glucose 107 (60-115) mg/dL Calcium 9.8 (8.4-10.2) mg/dL Total Bilirubin 0.4 (0.0-1.0) mg/dL AST 42 H (5-31) U/L ALT 50 H (0-31) U/L Alkaline Phosphatase 98 (39-117) U/L Troponin I High Sens (<3.5-17.0) ng/L Total Protein 7.6 (6.5-8.0) g/dL Albumin 4.4 (3.5-5.0) g/dL COVID-19 (SHEILA) (Negative) COVID-19 Clin Com Influenza Type A (DIETER) (Negative) Influenza Type B (DIETER) (Negative) Influenza A & B Note 05/31/22 05/31/22 05/31/22 Range/Units 18:56 18:56 18:56 WBC (4.8-10.8) X10*3/uL RBC (4.20-5.50) X10*6/uL Hgb (12.0-16.0) g/dl Hct (37.0-47.0) % MCV (80.0-98.0) fL MCH (27.0-33.0) pg MCHC (31.0-35.0) g/dl RDW (11.0-16.0) % Plt Count (160-400) X10*3/uL MPV (9.4-12.3) fL Immature Gran % (Auto) (0.0-0.4) % Neut % (Auto) (45-73) % Lymph % (Auto) (20-40) % Isabela % (Auto) (2-11) % Eos % (Auto) (0-4) % Baso % (Auto) (0-2) % Lymph # (Auto) (1.2-4.9) X10*3/uL Isabela # (Auto) (0.1-1.2) X10*3/uL Eos # (Auto) (0.0-0.4) X10*3/uL Baso # (Auto) (0.0-0.2) X10*3/uL Abs Immat Gran (auto) (0.00-0.03) X10*3/uL Absolute Neuts (auto) (2.0-8.3) x10*3/uL Absolute Nucleated RBC (0.0-0.012) X10*3/uL Nucleated RBC % (auto) (0.0-0.2) /100WBC PT (10.0-13.1) SEC INR (0.9-1.1) Sodium (135-145) mmol/L Potassium (3.3-5.1) mmol/L Chloride (96-108) mmol/L Carbon Dioxide (22-29) mmol/L Anion Gap (12-20) BUN (9-16) mg/dL Creatinine (0.5-1.4) mg/dL Estim Creat Clear Calc Estimated GFR Random Glucose (60-115) mg/dL Calcium (8.4-10.2) mg/dL Total Bilirubin (0.0-1.0) mg/dL AST (5-31) U/L ALT (0-31) U/L Alkaline Phosphatase (39-117) U/L Troponin I High Sens < 3.5 (<3.5-17.0) ng/L Total Protein (6.5-8.0) g/dL Albumin (3.5-5.0) g/dL COVID-19 (SHEILA) Negative (Negative) COVID-19 Clin Com See Note Influenza Type A (DIETER) Negative (Negative) Influenza Type B (DIETER) Negative (Negative) Influenza A & B Note See Note <Ivanna Johnson CNP - Last Filed: 05/31/22 18:20> Lab Results 05/31/22 05/31/22 05/31/22 Range/Units 18:56 18:56 18:56 WBC 7.4 (4.8-10.8) X10*3/uL RBC 4.84 (4.20-5.50) X10*6/uL Hgb 12.8 (12.0-16.0) g/dl Hct 39.4 (37.0-47.0) % MCV 81.4 (80.0-98.0) fL MCH 26.4 L (27.0-33.0) pg MCHC 32.5 (31.0-35.0) g/dl RDW 15.8 (11.0-16.0) % Plt Count 272 (160-400) X10*3/uL MPV 10.0 (9.4-12.3) fL Immature Gran % (Auto) 0.3 (0.0-0.4) % Neut % (Auto) 59.1 (45-73) % Lymph % (Auto) 27.8 (20-40) % Isabela % (Auto) 6.3 (2-11) % Eos % (Auto) 6.0 H (0-4) % Baso % (Auto) 0.5 (0-2) % Lymph # (Auto) 2.0 (1.2-4.9) X10*3/uL Isabela # (Auto) 0.5 (0.1-1.2) X10*3/uL Eos # (Auto) 0.4 (0.0-0.4) X10*3/uL Baso # (Auto) 0.0 (0.0-0.2) X10*3/uL Abs Immat Gran (auto) 0.02 (0.00-0.03) X10*3/uL Absolute Neuts (auto) 4.4 (2.0-8.3) x10*3/uL Absolute Nucleated RBC 0.000 (0.0-0.012) X10*3/uL Nucleated RBC % (auto) 0.0 (0.0-0.2) /100WBC PT 10.8 (10.0-13.1) SEC INR 0.9 (0.9-1.1) Sodium 142 (135-145) mmol/L Potassium 3.5 (3.3-5.1) mmol/L Chloride 105 (96-108) mmol/L Carbon Dioxide 23 (22-29) mmol/L Anion Gap 18 (12-20) BUN 17 H (9-16) mg/dL Creatinine 0.85 (0.5-1.4) mg/dL Estim Creat Clear Calc 76.2 Estimated GFR > 60 Random Glucose 107 (60-115) mg/dL Calcium 9.8 (8.4-10.2) mg/dL Total Bilirubin 0.4 (0.0-1.0) mg/dL AST 42 H (5-31) U/L ALT 50 H (0-31) U/L Alkaline Phosphatase 98 (39-117) U/L Troponin I High Sens (<3.5-17.0) ng/L Total Protein 7.6 (6.5-8.0) g/dL Albumin 4.4 (3.5-5.0) g/dL COVID-19 (SHEILA) (Negative) COVID-19 Clin Com Influenza Type A (DIETER) (Negative) Influenza Type B (DIETER) (Negative) Influenza A & B Note 05/31/22 05/31/22 05/31/22 Range/Units 18:56 18:56 18:56 WBC (4.8-10.8) X10*3/uL RBC (4.20-5.50) X10*6/uL Hgb (12.0-16.0) g/dl Hct (37.0-47.0) % MCV (80.0-98.0) fL MCH (27.0-33.0) pg MCHC (31.0-35.0) g/dl RDW (11.0-16.0) % Plt Count (160-400) X10*3/uL MPV (9.4-12.3) fL Immature Gran % (Auto) (0.0-0.4) % Neut % (Auto) (45-73) % Lymph % (Auto) (20-40) % Isabela % (Auto) (2-11) % Eos % (Auto) (0-4) % Baso % (Auto) (0-2) % Lymph # (Auto) (1.2-4.9) X10*3/uL Isabela # (Auto) (0.1-1.2) X10*3/uL Eos # (Auto) (0.0-0.4) X10*3/uL Baso # (Auto) (0.0-0.2) X10*3/uL Abs Immat Gran (auto) (0.00-0.03) X10*3/uL Absolute Neuts (auto) (2.0-8.3) x10*3/uL Absolute Nucleated RBC (0.0-0.012) X10*3/uL Nucleated RBC % (auto) (0.0-0.2) /100WBC PT (10.0-13.1) SEC INR (0.9-1.1) Sodium (135-145) mmol/L Potassium (3.3-5.1) mmol/L Chloride (96-108) mmol/L Carbon Dioxide (22-29) mmol/L Anion Gap (12-20) BUN (9-16) mg/dL Creatinine (0.5-1.4) mg/dL Estim Creat Clear Calc Estimated GFR Random Glucose (60-115) mg/dL Calcium (8.4-10.2) mg/dL Total Bilirubin (0.0-1.0) mg/dL AST (5-31) U/L ALT (0-31) U/L Alkaline Phosphatase (39-117) U/L Troponin I High Sens < 3.5 (<3.5-17.0) ng/L Total Protein (6.5-8.0) g/dL Albumin (3.5-5.0) g/dL COVID-19 (SHEILA) Negative (Negative) COVID-19 Clin Com See Note Influenza Type A (DIETER) Negative (Negative) Influenza Type B (DIETER) Negative (Negative) Influenza A & B Note See Note <Yonis Kaplan MD - Last Filed: 05/31/22 22:17> Independent Interpretation I performed an independent interpretation of an: EKG and Plain X-Ray <Yonis Kaplan MD - Last Filed: 05/31/22 22:17> Interpretation: My independent interpretation the patient's two-view chest x-ray is as follows: No acute disease My independent interpretation of the patient's 12 EKG done at 1846 is as follows: Normal sinus rhythm rate of 81, normal GA will, QRS duration QTC interval, no ST segment elevation, no ST segment depression, no T-wave abnormalities, no PACs, no PVCs, compared to EKG dated 09/25/2021 there is no significant change. <Yonis Kaplan MD - Last Filed: 05/31/22 22:17> Radiology Impression Discussion of test interpretation with radiology: I have reviewed the radiologist's reading. <Yonis Kaplan MD - Last Filed: 05/31/22 22:17> Radiologist Impression: XR chest 2V IMPRESSION: Unremarkable examination. Dictated By:Celio Crawford MDSigned By:<Electronically signed by Celio Crawford MD in [place]>05/31/221904 <Yonis Kaplan MD - Last Filed: 05/31/22 22:17> External Record Review External record reviewed: Other ([place] prescription monitoring program was reviewed by me, the patient has no recent prescriptions for narcotic medication) <Yonis Kaplan MD - Last Filed: 05/31/22 22:17> Discharge Plan Discharge Clinical Impression: Acute costochondritis <Ivanna Johnson CNP - Last Filed: 05/31/22 18:20> Patient Disposition: Home, Self-Care <Ivanna Johnson CNP - Last Filed: 05/31/22 18:20> Instructions: Costochondritis (ED) <Ivanna Johnson CNP - Last Filed: 05/31/22 18:20> Additional Instructions: Your blood work was normal. Your troponin (marker of heart attack/heart damage) was below detectable limits which is very reassuring and suggests that your chest pain is not caused by your heart. Your chest x-ray was normal. Your EKG was normal. This time, I believe that your pain is caused by inflammation of the joints of your chest (costochondritis). You cannot take anti-inflammatory medications because of your stomach problem. Take Tylenol (acetaminophen) 325 mg pills, 2 pills every 6 hours as needed for pain. For pain not relieved Tylenol take oxycodone 5 mg pills, 1 pill every 4 hours as needed for pain. Do not drive or work while taking this medication since they can cause sleepiness. Oxycodone is a narcotic medication that can be addicting. If you are concerned about addiction you can ask the pharmacist for less pills or do not get this prescription filled. Follow-up with your doctor in 2 days. Please return to the emergency department if your symptoms get worse or if you develop any symptoms that are concerning to you. <Ivanna Johnson CNP - Last Filed: 05/31/22 18:20> Prescriptions: New oxycodone 5 mg tablet 5 mg PO Q4H PRN (Reason: pain) Qty: 14 0RF Rx Instructions: Patient may request partial fill; Partial Fill upon patient request. No Action sitagliptin phosphate 100 mg tablet 100 mg PO DAILY 30 Days Qty: 30 6RF metformin 500 mg tablet extended release 24hr 500 mg PO BID 30 Days Qty: 60 2RF empagliflozin 25 mg tablet 25 mg PO QAM 30 Days Qty: 30 0RF ondansetron 4 mg tablet,disintegrating 4 mg PO Q8H 4 Days Qty: 12 0RF pantoprazole 20 mg tablet,delayed release (DR/EC) 1 tab PO DAILY sertraline 100 mg tablet 200 mg PO DAILY hydrochlorothiazide 25 mg tablet 25 mg PO DAILY cyanocobalamin (vitamin B-12) 250 mcg tablet 250 mcg PO DAILY topiramate 100 mg tablet 100 mg PO BID (DME) blood sugar diagnostic Strip See Rx Instructions Not Applicable TID Qty: 10 Rx Instructions: As directed (DME) blood-glucose meter Kit See Rx Instructions .ROUTE DIRECTED Qty: 1 Rx Instructions: As directed ibuprofen 600 mg tablet 600 mg PO TID PRN zolpidem [Ambien] 5 mg tablet 5 mg PO BEDTIME PRN (Reason: Insomnia) montelukast [Singulair] 10 mg tablet 10 mg PO DAILY aspirin [Adult Low Dose Aspirin] 81 mg tablet,delayed release (DR/EC) 81 mg PO DAILY (DME) FreeStyle Lite Strips Strip See Rx Instructions .ROUTE .MEDSUPPLY Qty: 50 11RF Rx Instructions: 2 times a day ferrous sulfate 325 mg (65 mg iron) tablet,delayed release (DR/EC) 325 mg PO DAILY Qvar RediHaler 80 mcg/actuation HFA aerosol breath activated 0 mcg inhalation buspirone 10 mg tablet 10 mg PO BID lisinopril 20 mg tablet 20 mg PO DAILY lorazepam 0.5 mg tablet 0.5 mg PO BEDTIME PRN Anoro Ellipta 62.5-25 mcg/actuation blister with device 1 inh inhalation DAILY 30 Days Qty: 60 11RF prednisone 20 mg tablet See Rx Instructions PO DAILY 10 Days Qty: 15 0RF Rx Instructions: PO daily; Take 2 tabs daily x 5 days, then 1 tablet daily x 5 days albuterol sulfate 2.5 mg /3 mL (0.083 %) solution for nebulization 2.5 mg inhalation Q6H PRN (Reason: shortness of breath or wheezing) 30 Days Qty: 180 11RF albuterol sulfate 90 mcg/actuation HFA aerosol inhaler 2 inh inhalation Q6H PRN (Reason: shortness of breath or wheezing) 30 Days Qty: 18 12RF levocetirizine 5 mg tablet 5 mg PO DAILY <Ivanna Johnson CNP - Last Filed: 05/31/22 18:20> Interventions: ED Discharge Assessment Last Done: 05/31/22 22:16 <Ivanna Johnson CNP - Last Filed: 05/31/22 18:20>
--- NOTE | 2022-05-31 18:20 | ECG_ITS ---
Test Reason : CHEST PAIN Blood Pressure : / mmHG Vent. Rate : 081 BPM Atrial Rate : 081 BPM P-R Int : 190 ms QRS Dur : 074 ms QT Int : 386 ms P-R-T Axes : 032 014 014 degrees QTc Int : 448 ms Normal sinus rhythm Normal ECG When compared with ECG of 25-SEP-2021 02:42, No significant change was found Referred By: Ivanna Johnson Electronically Signed By:JUAN HIGGINBOTHAM MD
[2022-05-31 19:02] LABS: MANUAL DIFF FLAG NO
[2022-05-31 19:11] LABS: INTERNATIONAL NORM RATIO 0.9 (0.9-1.1); Prothrombin Time 10.8 SEC (10.0-13.1)
[2022-05-31 19:13] LABS: Basophils Percent Auto 0.5 % (0-2); Eosinophils Absolute Auto 0.4 X10*3/uL (0.0-0.4); Hematocrit 39.4 % (37.0-47.0); Hemoglobin 12.8 g/dl (12.0-16.0); Imm Gran Abs Auto 0.02 X10*3/uL (0.00-0.03); Imm Gran Pct Auto 0.3 % (0.0-0.4); Lymphocytes Percent Auto 27.8 % (20-40); Mean Corpuscular HGB Conc 32.5 g/dl (31.0-35.0); Mean Corpuscular Hemoglobin 26.4 pg (27.0-33.0); Mean Corpuscular Volume 81.4 fL (80.0-98.0); Monocytes Absolute Auto 0.5 X10*3/uL (0.1-1.2); Monocytes Percent Auto 6.3 % (2-11); Neutrophils Absolute Auto 4.4 x10*3/uL (2.0-8.3); Neutrophils Percent Auto 59.1 % (45-73); Platelet Count 272 X10*3/uL (160-400); Red Blood Count 4.84 X10*6/uL (4.20-5.50); Red Cell Distribution Width 15.8 % (11.0-16.0); White Blood Count 7.4 X10*3/uL (4.8-10.8)
[2022-05-31 19:18] LABS: Alanine Aminotransferase 50 U/L (0-31); Albumin Level 4.4 g/dL (3.5-5.0); Alkaline Phosphatase 98 U/L (39-117); Anion Gap 18 (12-20); Aspartate Amino Transferase 42 U/L (5-31); Bilirubin Total 0.4 mg/dL (0.0-1.0); Blood Urea Nitrogen 17 mg/dL (9-16); Calcium 9.8 mg/dL (8.4-10.2); Carbon Dioxide 23 mmol/L (22-29); Chloride 105 mmol/L (96-108); Creatinine Clr Calc Pharmacy 76.2; Estimated Glomerular Filt Rate > 60; Glucose Random 107 mg/dL (60-115); Potassium 3.5 mmol/L (3.3-5.1); Sodium 142 mmol/L (135-145); Total Protein 7.6 g/dL (6.5-8.0)
[2022-05-31 19:20] LABS: COVID-19 Test Negative (Negative); IDNOW Serial# 9DB6401D; IDNOW Serial# BCCEAD1C; Influenza A Negative (Negative); Influenza B2 Negative (Negative)
[2022-05-31 19:31] LABS: Troponin-I High Sensitivity < 3.5 ng/L (<3.5-17.0)
[2022-05-31 19:37] VITALS: BP 121/63; PULSE 73; RESP 20; TEMP 36.9; O2SAT 96
[2022-05-31] MEDS: oxyCODONE HCl Immed Release 5 MG TABLET 10 MG PO (21:58)
== END 2022-05-31 22:17 | disposition home or self-care (01) ==
PROVIDERS: Nurse Practitioner Family; Emergency Provider Emergency Medicine Emergency Medical Services; PCP Family Medicine
DX: M94.0 Chondrocostal junction syndrome [Tietze] (principal); R07.89 Other chest pain; Z79.899 Other long term (current) drug therapy; Z20.822 Contact with and (suspected) exposure to COVID-19
CPT/HCPCS: 71046; 80053; 84484; 85025; 85610; 87502; 87635; 93005; 99283; 99284

== ENCOUNTER 2023-01-16 10:32 | Outpatient (REF) | payer OTHER, SELFPAY ==
[2023-01-16 12:17] LABS: Estimated Average Glucose 163 mg/dL; Hemoglobin A1c % 7.3 % (<6.0)
[2023-01-16 13:16] LABS: Creatinine Urine 133.27 mg/dL; Microalbum/Creatinine Ratio Ur 4.5 ug/mg cr (<30)
[2023-01-16 13:29] LABS: Alanine Aminotransferase 72 U/L (0-31); Alkaline Phosphatase 91 U/L (39-117); Anion Gap 15 (12-20); Aspartate Amino Transferase 65 U/L (5-31); Bilirubin Direct 0.2 mg/dL (0.0-0.5); Bilirubin Total 0.4 mg/dL (0.0-1.0); Blood Urea Nitrogen 14 mg/dL (9-16); Calcium 9.5 mg/dL (8.4-10.2); Carbon Dioxide 24 mmol/L (22-29); Chloride 105 mmol/L (96-108); Cholesterol 156 mg/dL (<200); Estimated Glomerular Filt Rate > 60; Glucose Random 140 mg/dL (60-115); HDL Cholesterol 53 mg/dL (>40); LDL Cholesterol Calculated 86 mg/dL (<100); Sodium 140 mmol/L (135-145); Total Protein 7.7 g/dL (6.5-8.0); Triglycerides 89 mg/dL (<150)
== END 2023-01-16 10:33 | disposition home or self-care (01) ==
LOC: HO.HHCL 10:32
PROVIDERS: Visit Provider Family Medicine
DX: E11.9 Type 2 diabetes mellitus without complications (principal)
CPT/HCPCS: 36415; 80048; 80061; 80076; 82043; 82570; 83036

== ENCOUNTER 2023-02-22 10:47 | Outpatient (AMB) | payer OTHER, SELFPAY ==
--- NOTE | 2023-02-22 10:58 | MHC.OFFVIS ---
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 Allergies amoxicillin [AMOXICILLIN] Allergy (Unknown, Verified 02/22/23 11:03) UNKNOWN, anaphylaxis Iodinated Contrast Media [IODINATED CONTRAST MEDIA] Allergy (Unknown, Verified 02/22/23 11:03) ANAPHYLAXIS morphine [MORPHINE] Allergy (Unknown, Verified 02/22/23 11:03) FEELS LIKE HER THROAT CLOSES AND SHE GETS SHORT OF BREATH, headache Penicillins [PENICILLINS] Allergy (Unknown, Verified 02/22/23 11:03) UNKNOWN beta-blockers (beta-adrenergic Allergy (Unknown, Uncoded 02/22/23 11:) difficulty breathing IV cotrast dye Allergy (Unknown, Uncoded 02/22/23 11:) Anaphylaxis HPI HPI Comments History of Present Illness Details The patient is a 57-year-old woman with lifelong asthma. She has had pretty significant asthma for many years. She was previously evaluated at [facility]. There she was placed on multiple courses of prednisone in addition to placing her on inhaled steroids. At some point her condition improved. She was on allergy medications as well. 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 She ran out of her inhalers and she started becoming more symptomatic. She has been struggling with her breathing. Recently she was started on QVAR and she has been feeling a little better although she still continues to have daytime daily and nighttime symptoms. She has not had allergy testing in a while. She did have blood work in the systems from October 2021 and also previous years. She has had significant eosinophilia every time she has blood work done. That 1 time she did not have eosinophilia was when she was on systemic steroids. Based on her significant asthma she may benefit from biologic therapy. Will maximize her respiratory therapy to see if she can be stabilize. The patient will come back after her breathing studies and we will assess her response to inhaler therapy. The 05/13/2022 the patient is here for a pulmonary follow-up visit. Overall she is doing well from a respiratory status. She continues with the QVAR. She does not use her rescue inhaler more than twice a week. Overall her asthma has been relatively well controlled. She denies needing prednisone or any recent exacerbations. We did review her blood work. 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 Her allergies also demonstrates significant environmental allergies specially in the springtime she probably have increased symptoms. The patient is aware that if her symptoms improve we can always maximize her respiratory therapy. Otherwise we need to consider biologic therapies to improve her allergic reactions the patient also is complaining of some discomfort primarily in the upper abdominal quadrants. The 10 to worsen when she takes a deep breath in. Back in September she was admitted to the hospital significant about tightest after medication cost issues. But, she has been off the medicine and she has not had any evidence of any jaundice like she had then. Her respiratory status is stable in her lungs sound well without any crackles or wheezing. I will have her undergo a chest x-ray and blood work to make sure that there isn't anything going on in the lung mendez. Most likely this is more an abdominal issue with significant abdominal bloating and potential residual inflammation. 02/22/2023 the patient is here for a pulmonary follow-up visit. The patient continues to struggle with her asthma. Having chest tightness and also has been struggling with her eczema. Significant pleuritic and uncomfortable. She did follow-up with Dermatology and did did prescribe her Dupixent. She has not been able to started since she has not been able to receive any education how to use it. Explained to the patient that the Dupixent will also help her asthma. We were able to set her up with a nursing visit this week in order for her to be able to start her loading dose and then after that she can continue with her maintenance injections every 2 weeks. She continues on the Anoro and also on the QVAR. I am hopeful that when she starts Dupixent she may be able to deescalate some of the respiratory medications. We will have to 1st start the Dupixent and then assess her response. She is going to monitor closely for any adverse effects including conjunctivitis. [facility] Medical History (Updated 02/22/23 @ 21:26 by Gerson Briggs MD) Eczema Chest pain Asthma Iron deficiency anemia Fibromyalgia Obesity due to excess calories Obesity (BMI 30-39.9) Diabetic polyneuropathy associated with type 2 diabetes mellitus Diabetes type 2, controlled Sebaceous gland hyperplasia of vulva Vulvar abscess Insomnia Stroke Acid reflux Asthma Depression Migraine Obesity, morbid HTN (hypertension) Surgical History Hx of craniotomy Hx of abdominoplasty History of carpal tunnel surgery Hx of adenoidectomy Hx of left hemicolectomy History of surgical removal of pilonidal cyst Hx of section Family History Father Family history of stroke Family hx of hypertension Mother Family hx of hypertension History of hyperthyroidism Hx of diabetes mellitus Hx pulmonary embolism Social History Household Members: None Patient Tobacco Use Status: Never used Tobacco service: No Current occupational status: unemployed Female Reproductive History Menstrual Age of Menarche: 15 Review of Systems Const Denies fatigue, Denies weight gain and Reports weight loss Eyes Denies blurry vision ENT Denies sore throat Card Reports chest pain and Denies palpitations Resp Denies chest congestion, Reports cough and Denies wheezing GI Reports abdominal pain, Denies constipation and Denies diarrhea Denies urinary frequency and Denies dysuria Musc Denies muscle cramps, Denies muscle weakness, Denies numbness and Denies tingling Skin/Breast Reports rash Neuro Denies burning sensations, Denies numbness, Denies tingling and Denies paresthesias Psych Denies depression Endo Denies fatigue, Denies polydipsia, Denies polyuria and Denies palpitations Donovan/Lymph Denies easy bruising Aller/Immun Denies wheezing Physical Exam Vital Signs: Last Vital Signs Pulse 83 02/22/23 11:02 Pulse Ox 96 02/22/23 11:02 Oxygen Delivery Method Room Air 02/22/23 11:02 BMI result Body Mass Index 35.5 Const General: no acute distress and alert HEENT Head: Yes normocephalic and Yes atraumatic Eyes Sclerae: sclerae normal EOM: EOMs intact bilaterally Neck Neck: Yes no lymphadenopathy, Yes trachea midline and Yes no JVD Thyroid: Thyroid normal Chest Chest palpation & inspection: normal inspection of the chest Resp Effort & Inspection: normal respiratory effort and prolonged expiratory phase Auscultation: no wheezes and diminished lung sounds Cardio Rate: regular rate Rhythm: regular rhythm Heart sounds: S1 normal heart sound present and S2 normal heart sound present Peripheral pulses: Peripheral pulses 2+ throughout GI Inspection: Yes normal to inspection and No distended Auscultation: normal bowel sounds Skin Other: No acanthosis nigricans or diabetic dermopathy Neuro Deep tendon reflexes (DTR's): Rt Biceps (C5, C6): 2+, Left biceps reflex intensity grade: 2+, Right patellar reflex intensity grade: 2+ and Left patellar reflex intensity grade: 2+ Extrem Other: General: Yes normal gait, No clubbing, No cyanosis and No edema Psych Affect: normal affect Attitude: cooperative Assessment & Plan Assessment & Plan (1) Asthma: Code(s): J45.909 - Unspecified asthma, uncomplicated Qualifiers: Asthma complication type: uncomplicated Asthma persistence: persistent Asthma severity: moderate Qualified Code(s): J45.40 - Moderate persistent asthma, uncomplicated (2) Acid reflux: Code(s): K21.9 - Gastro-esophageal reflux disease without esophagitis Qualifiers: Esophagitis presence: without esophagitis Qualified Code(s): K21.9 - Gastro-esophageal reflux disease without esophagitis (3) Eczema: Code(s): L30.9 - Dermatitis, unspecified Qualifiers: Eczema type: unspecified Qualified Code(s): L30.9 - Dermatitis, unspecified Plan continue QVAR 40 continue Anoro to provide office at about the same Agree be Dupixent ALEJANDRA as needed Continue Singulair reflux diet F/U 4-6 months Medications: Refilled umeclidinium-vilanterol 62.5-25 mcg/actuation (Anoro Ellipta) 1 inh inhalation DAILY 30 days 60 ea 11RF J44.9 - Chronic obstructive pulmonary disease, unspecified albuterol sulfate 90 mcg/actuation 2 inhalations inhalation Q6H 30 days PRN 18 grams 12RF shortness of breath or wheezing J44.9 - Chronic obstructive pulmonary disease, unspecified beclomethasone dipropionate 80 mcg/actuation (Qvar RediHaler) 2 inhalations inhalation BID 30 days 10.6 grams 11RF Coding Level of Care Code Est Pt Level 4 (22332) Diagnoses Moderate persistent asthma without complication J45.40 Asthma complication type: uncomplicated Asthma persistence: persistent Asthma severity: moderate Gastroesophageal reflux disease without esophagitis K21.9 Esophagitis presence: without esophagitis Eczema, unspecified type L30.9 Eczema type: unspecified Time Spent (min) 17
[2023-02-22 11:02] VITALS: PULSE 83; O2SAT 96; BMI 35.5
== END 2023-02-22 11:28 | disposition home or self-care (01) ==
PROVIDERS: PCP Family Medicine; Visit Provider Hospitalist
DX: J45.40 Moderate persistent asthma, uncomplicated (principal); K21.9 Gastro-esophageal reflux disease without esophagitis; L30.9 Dermatitis, unspecified
CPT/HCPCS: 99214

== ENCOUNTER → 2023-02-22 10:47 | Outpatient (BNVA) | payer OTHER, SELFPAY | PROVIDERS: PCP Family Medicine; Visit Provider Hospitalist | DX: J45.40 Moderate persistent asthma, uncomplicated (principal); K21.9 Gastro-esophageal reflux disease without esophagitis; L30.9 Dermatitis, unspecified; Z79.899 Other long term (current) drug therapy | CPT/HCPCS: 99212 ==

== ENCOUNTER 2023-02-23 10:58 | Outpatient (REF) | payer OTHER, SELFPAY ==
--- NOTE | ~2023-02-23 | MM_ITS ---
EXAMINATION: MM SCREENING DIGITAL BREAST TOMOSYNTHESIS, BILATERAL CLINICAL INFORMATION: Screening. Asymptomatic. COMPARISON: Mammography: This study is compared with prior exams dating back to 2016. TECHNIQUE: Digital breast tomosynthesis is performed in both the craniocaudal and mediolateral oblique views along with computer-aided detection (CAD). Synthesized 2D images are generated from the tomosynthesis. FINDINGS: There are scattered areas of fibroglandular density (ACR BI-RADS breast composition Category b). There are no significant masses, abnormal calcifications, or other abnormalities. MM/MM tomosynthesis screening BI IMPRESSION: No mammographic evidence of malignancy. ASSESSMENT: BI-RADS BI-RADS 1 - Negative RECOMMENDATION: Routine annual mammography screening. 1 year F/U This examination should not preclude the clinical evaluation of a suspicious palpable abnormality. This patient's information was entered into a reminder system with a target due date for their next mammogram.
== END 2023-02-23 10:59 | disposition home or self-care (01) ==
LOC: HO.MAMMO 10:58
PROVIDERS: PCP Family Medicine; Visit Provider Family Medicine
DX: Z12.31 Encounter for screening mammogram for malignant neoplasm of breast (principal)
CPT/HCPCS: 77063; 77067

== ENCOUNTER → 2023-02-23 11:30 | Outpatient (BNV) | payer OTHER, SELFPAY | PROVIDERS: PCP Family Medicine; Visit Provider Radiology Diagnostic Radiology | DX: Z12.31 Encounter for screening mammogram for malignant neoplasm of breast (principal) | CPT/HCPCS: 77063; 77067 ==

== ENCOUNTER 2023-02-24 11:06 | Outpatient (AMB) | payer OTHER, SELFPAY ==
[2023-02-24 13:57] VITALS: PULSE 87; O2SAT 96; BMI 35.2
--- NOTE | 2023-02-24 13:57 | MHC.OFFVIS ---
Intake Vital Signs 02/24/23 13:57 Height 5 ft 4 in Weight 93 kg BMI 35.2 Pulse 87 Pulse Source Pulse Oximeter Pulse Oximetry (%) 96 Oxygen Delivery Method Room Air Intake Visit Reasons: dupixent teach Allergies amoxicillin [AMOXICILLIN] Allergy (Unknown, Verified 02/24/23 13:57) UNKNOWN, anaphylaxis Iodinated Contrast Media [IODINATED CONTRAST MEDIA] Allergy (Unknown, Verified 02/24/23 13:57) ANAPHYLAXIS morphine [MORPHINE] Allergy (Unknown, Verified 02/24/23 13:57) FEELS LIKE HER THROAT CLOSES AND SHE GETS SHORT OF BREATH, headache Penicillins [PENICILLINS] Allergy (Unknown, Verified 02/24/23 13:57) UNKNOWN beta-blockers (beta-adrenergic Allergy (Unknown, Uncoded 02/24/23 13:57) difficulty breathing IV cotrast dye Allergy (Unknown, Uncoded 02/24/23 13:57) Anaphylaxis Medication List - Last Reconciled 02/24/23 by Janice Cortes CUSTOMER SUCCESS SPECIALIST albuterol sulfate 2.5 mg (3 mL) inhalation Q6H PRN 30 days albuterol sulfate 90 mcg/actuation 2 inhalations inhalation Q6H PRN 30 days aspirin (Adult Low Dose Aspirin) 81 mg PO DAILY beclomethasone dipropionate 80 mcg/actuation (Qvar RediHaler) 2 inhalations inhalation BID 30 days blood sugar diagnostic As directed blood sugar diagnostic (FreeStyle Lite Strips) 2 times a day blood-glucose meter As directed buspirone 10 mg PO BID cyanocobalamin (vitamin B-12) 250 mcg PO DAILY empagliflozin 25 mg PO QAM 30 days ferrous sulfate 325 mg PO DAILY hydrochlorothiazide 25 mg PO DAILY ibuprofen 600 mg PO TID PRN levocetirizine 5 mg PO DAILY lisinopril 20 mg PO DAILY lorazepam 0.5 mg PO BEDTIME PRN metformin ER 500 mg PO BID 30 days montelukast (Singulair) 10 mg PO DAILY ondansetron 4 mg PO Q8H 4 days oxycodone 5 mg PO Q4H PRN pantoprazole 1 tab PO DAILY prednisone PO daily; Take 2 tabs daily x 5 days, then 1 tablet daily x 5 days 10 days sertraline 200 mg PO DAILY sitagliptin phosphate 100 mg PO DAILY 30 days topiramate 100 mg PO BID umeclidinium-vilanterol 62.5-25 mcg/actuation (Anoro Ellipta) 1 inh inhalation DAILY 30 days zolpidem (Ambien) 5 mg PO BEDTIME PRN HPI dupixent teach HPI Details Tonya? is here for a Dupixent teach she was educated on hand washing, injection preparation, administration, and disposal. Ruthie was able to return demonstrate proper technique for hand washing, injection preparation, administration and disposal of needle and states she has no questions at this time. Medication Dupixent 300mg/2mL pre-filled pen (patient?s own meds) Loading dose of 600mg given by the patient in 2 SQ injections; injection #1 L thigh ;? injection #2 R thigh Lot#[id number] expires 11/21/2024. Patient aware her next injection is in 15 days. Nurse visit only.? [facility] Medical History (Updated 02/22/23 @ 21:26 by Gerson Briggs MD) Eczema Chest pain Asthma Iron deficiency anemia Fibromyalgia Obesity due to excess calories Obesity (BMI 30-39.9) Diabetic polyneuropathy associated with type 2 diabetes mellitus Diabetes type 2, controlled Sebaceous gland hyperplasia of vulva Vulvar abscess Insomnia Stroke Acid reflux Asthma Depression Migraine Obesity, morbid HTN (hypertension) Surgical History Hx of craniotomy Hx of abdominoplasty History of carpal tunnel surgery Hx of adenoidectomy Hx of left hemicolectomy History of surgical removal of pilonidal cyst Hx of section Family History Father Family history of stroke Family hx of hypertension Mother Family hx of hypertension History of hyperthyroidism Hx of diabetes mellitus Hx pulmonary embolism Social History Household Members: None Patient Tobacco Use Status: Never used Tobacco service: No Current occupational status: unemployed Female Reproductive History Menstrual Age of Menarche: 15 Assessment & Plan Assessment & Plan (1) Asthma: Code(s): J45.909 - Unspecified asthma, uncomplicated Qualifiers: Asthma severity: moderate Asthma persistence: persistent Asthma complication type: uncomplicated Qualified Code(s): J45.40 - Moderate persistent asthma, uncomplicated Coding Level of Care Code Established Pt Est Pt Level 1 (19813) Patient Type Established Diagnoses Moderate persistent asthma without complication J45.40 Asthma severity: moderate Asthma persistence: persistent Asthma complication type: uncomplicated Comment NURSE VISIT ONLY
== END 2023-02-24 11:24 | disposition home or self-care (01) ==
PROVIDERS: PCP Family Medicine; Visit Provider Hospitalist
DX: J45.40 Moderate persistent asthma, uncomplicated (principal)

== ENCOUNTER → 2023-02-24 11:06 | Outpatient (BNVA) | payer OTHER, SELFPAY | PROVIDERS: PCP Family Medicine; Visit Provider Hospitalist | DX: J45.40 Moderate persistent asthma, uncomplicated (principal) | CPT/HCPCS: 99211 ==

== ENCOUNTER 2023-03-07 15:04 | Emergency (ER) | payer OTHER, SELFPAY ==
--- NOTE | ~2023-03-07 | XR_ITS ---
EXAMINATION: XR CHEST 2 VIEW CLINICAL INFORMATION: Chest pain, worse leaning forward COMPARISON: 05/31/2022 TECHNIQUE: PA and lateral views of the chest obtained. FINDINGS: The lungs are clear. There are no pleural effusions. The cardiomediastinal silhouette is normal. XR/XR chest 2V IMPRESSION: No acute cardiopulmonary disease.
[2023-03-07 15:07] VITALS: BP 142/77; PULSE 102; RESP 20; TEMP 37.1; O2SAT 97; BMI 35.2
--- NOTE | 2023-03-07 15:09 | ED.GENADULT ---
HPI - General Adult General Chief complaint: Neck Pain/Injury Stated complaint: Neck pain/Chest pain Time Seen by Provider: 03/07/23 16:00 Source: patient and etcher enameling Mode of arrival: ambulatory Limitations: language barrier History of Present Illness HPI narrative: Patient is a 57-year-old Malay-speaking female with history of HTN, fibromyalgia,T2DM, stroke, asthma, anemia presenting to the emergency department with complaint of left lateral neck pain radiating to left shoulder and under left arm since Monday. Reports pain was gradual in onset. States is now extending to left lateral ribs. Reports pain is worse with movement and palpation. States pain also increases when leaning forward. She denies chest pain, palpitations, or shortness of breath. Denies recent cough or fevers. Denies any abdominal pain, nausea, vomiting, diarrhea, constipation. Has use Tylenol and ibuprofen with little relief. Denies any fall or other recent trauma. Denies any left arm weakness, numbness or tingling. Denies headaches. MD complaint: Left lateral neck pain Onset (ago): day(s) Location: neck Radiation: extremity Severity: severe Quality: aching Pain Consistency: constant Relieving factors: none Exacerbating factors: movement and other (palpation) Treatments prior to arrival: NSAID Related Data Home Medications Medication Instructions Recorded Confirmed blood sugar diagnostic #10 ea 01/20/20 02/24/23 blood-glucose meter #1 ea 01/20/20 02/24/23 cyanocobalamin (vitamin B-12) 250 250 mcg PO DAILY 01/20/20 02/24/23 mcg tablet hydrochlorothiazide 25 mg tablet 25 mg PO DAILY 01/20/20 02/24/23 sertraline 100 mg tablet 200 mg PO DAILY 01/20/20 02/24/23 topiramate 100 mg tablet 100 mg PO BID 01/20/20 02/24/23 aspirin 81 mg tablet,delayed 81 mg PO DAILY 01/23/20 02/24/23 release (Adult Low Dose Aspirin) montelukast 10 mg tablet 10 mg PO DAILY 01/23/20 02/24/23 (Singulair) zolpidem 5 mg tablet (Ambien) 5 mg PO BEDTIME PRN Insomnia 01/23/20 02/24/23 ferrous sulfate 325 mg (65 mg 325 mg PO DAILY 07/07/21 02/24/23 iron) tablet,delayed release pantoprazole 20 mg tablet,delayed 1 tab PO DAILY 09/25/21 02/24/23 release buspirone 10 mg tablet 10 mg PO BID 02/22/22 02/24/23 ibuprofen 600 mg tablet 600 mg PO TID PRN 02/22/22 02/24/23 lisinopril 20 mg tablet 20 mg PO DAILY 02/22/22 02/24/23 lorazepam 0.5 mg tablet 0.5 mg PO BEDTIME PRN 02/22/22 02/24/23 levocetirizine 5 mg tablet 5 mg PO DAILY 05/13/22 02/24/23 Previous Rx's Medication Instructions Recorded blood sugar diagnostic (FreeStyle #50 ea 06/22/21 Lite Strips) sitagliptin phosphate 100 mg tablet 100 mg PO DAILY 30 days #30 tabs 08/19/21 ondansetron 4 mg disintegrating 4 mg PO Q8H 4 days #12 tabs 09/22/21 tablet metformin 500 mg tablet,extended 500 mg PO BID 30 days #60 tabs 02/17/22 release 24hr prednisone 20 mg tablet See Rx Instructions PO DAILY 10 02/22/22 days #15 tabs empagliflozin 25 mg tablet 25 mg PO QAM 30 days #30 tabs 03/31/22 oxycodone 5 mg tablet 5 mg PO Q4H PRN pain #14 tabs 05/31/22 albuterol sulfate 2.5 mg/3 mL 2.5 mg (3 mL) inhalation Q6H PRN 01/16/23 (0.083 %) solution for nebulization shortness of breath or wheezing 30 days #180 mL albuterol sulfate 90 mcg/actuation 2 inh inhalation Q6H PRN shortness 02/22/23 aerosol inhaler of breath or wheezing 30 days #18 grams beclomethasone dipropionate 80 2 inh inhalation BID 30 days #10.6 02/22/23 mcg/actuation HFA breath activated grams aerosol (Qvar RediHaler) umeclidinium 62.5 mcg-vilanterol 1 inh inhalation DAILY 30 days #60 02/22/23 25 mcg/actuation powdr for ea inhalation (Anoro Ellipta) cyclobenzaprine 5 mg tablet 5 mg PO TID PRN muscle spasm #10 03/07/23 tabs lidocaine 5 % topical patch 1 patch topical DAILY #15 ea 03/07/23 Allergies Allergy/AdvReac Type Severity Reaction Status Date / Time amoxicillin [AMOXICILLIN] Allergy Unknown UNKNOWN, Verified 02/24/23 13:57 anaphylaxis Iodinated Contrast Media Allergy Unknown ANAPHYLAXIS Verified 02/24/23 13:57 [IODINATED CONTRAST MEDIA] morphine [MORPHINE] Allergy Unknown FEELS LIKE Verified 02/24/23 13:57 HER THROAT CLOSES AND SHE GETS SHORT OF BREATH, headache Penicillins [PENICILLINS] Allergy Unknown UNKNOWN Verified 02/24/23 13:57 beta-blockers Allergy Unknown difficulty Uncoded 02/24/23 13:57 (beta-adrenergic breathing IV cotrast dye Allergy Unknown Anaphylaxis Uncoded 02/24/23 13:57 Review of Systems Review of Systems: As per HPI. Yes all other systems are reviewed and are negative Constitutional: Constitutional: Reports as per HPI [facility] Past Medical History Medical History (Updated 03/07/23 @ 17:44 by Kailyn Montero NP) Eczema Chest pain Asthma Iron deficiency anemia Fibromyalgia Obesity due to excess calories Obesity (BMI 30-39.9) Diabetic polyneuropathy associated with type 2 diabetes mellitus Diabetes type 2, controlled Sebaceous gland hyperplasia of vulva Vulvar abscess Insomnia Stroke Acid reflux Asthma Depression Migraine Obesity, morbid HTN (hypertension) Surgical History Hx of craniotomy Hx of abdominoplasty History of carpal tunnel surgery Hx of adenoidectomy Hx of left hemicolectomy History of surgical removal of pilonidal cyst Hx of section Family History Family History Father Family history of stroke Family hx of hypertension Mother Family hx of hypertension History of hyperthyroidism Hx of diabetes mellitus Hx pulmonary embolism Social History Social History Household Members: None Patient Tobacco Use Status: Never used Tobacco Advance Directives: No Advance Directives Information Provided: No service: No Current occupational status: unemployed Physical Exam ED Vital Signs: Vital Signs - 24 hr 03/07/23 15:07 03/07/23 16:00 03/07/23 19:16 Temperature 98.7 F 97.7 F 98.7 F Pulse Rate 102 H 88 76 Respiratory Rate 20 18 16 Blood Pressure 142/77 H 106/69 101/56 L Pulse Oximetry 97 98 98 Oxygen Delivery Method Room Air Room Air Room Air BMI result Body Mass Index 35.2 Vital signs have been reviewed and appear to be correct. Blood pressure normal. Heart rate normal. Respiratory rate normal. Temperature normal. Oxygen saturation normal. Const General: cooperative, healthy appearing and no acute distress Orientation/consciousness: oriented to person, oriented to place, oriented to time and patient oriented x3 Limitations: no limitations HENME Head: Yes normocephalic and Yes atraumatic Ears: external ears normal General nose exam: Normal external nose present Face and sinus: Yes face symmetric Mouth: oropharynx normal and moist mucous membranes Throat: Yes uvula midline Eyes Pupils: Equal, round and reactive pupils present Neck Neck: Yes normal visual inspection, Yes full ROM, Yes no meningeal signs, Yes trachea midline and Yes supple Lymphatic: no lymphadenopathy noted Chest Chest palpation & inspection: normal inspection of the chest and normal palpation of entire chest wall Resp Effort & Inspection: normal respiratory effort and able to speak in complete sentences Auscultation: clear to auscultation bilaterally Cardio Rate: regular rate Rhythm: regular rhythm Heart sounds: S1 normal heart sound present and S2 normal heart sound present GI Palpation (GI): Soft to palpation and nontender Auscultation: normoactive bowel sounds General: Yes no CVA tenderness Back/Spine/Pelvis Back: no CVA tenderness Cervical Spine: cervical ROM normal, No Lhermitte's sign positive, cervical muscular tenderness (left lateral), pain with cervical ROM, cervical spasm (left lateral), No Cervical spine tenderness and No step off deformity Skin General skin exam: elasticity normal and turgor normal Neuro General: oriented to person, oriented to place, oriented to time, patient oriented x3, moves all extremities, no meningeal signs, no focal motor deficits and CN's II-XI intact bilaterally Cranial nerves: Yes Equal, round and reactive pupils present Cognition (Neuro): normal cognition Extrem General: Yes full ROM, Yes no pedal edema and Yes no calf tenderness Left upper extremity: shoulder/upper arm Details: inspection abnormal, tenderness Location: other (trapezius) and normal ROM; no swelling and no ecchymosis and hand Details: vascular exam Details: radial pulse present Psych Mental Status: mental status grossly normal Affect: normal affect Thought process: Normal thought process present Course Course Course Narrative: This is an RME: Additional HPI, ROS, PE not included below will be deferred to primary provider. 57 yo f presents w/ left sided neck pain w/ radiation to LUE . Atruamatic Plan - ekg Reevaluation(s) Reevaluation #1: X-ray unremarkable. EKG nonischemic. Patient was seen by previous provider I took over with x-ray of chest pending. Patient had been educated on most likely diagnosis, since x-rays normal patient to be discharged home with previous providers discharge instructions. Time: 19:28 Medications Administered Discontinued Medications Generic Name Dose Route Start Last Admin Trade Name Freq PRN Reason Stop Dose Admin Cyclobenzaprine HCl 10 mg 03/07/23 17:15 03/07/23 17:35 Cyclobenzaprine Hcl 10 Mg Tablet PO 03/07/23 17:16 10 mg ONCE ONE Administration Ketorolac Tromethamine 15 mg 03/07/23 17:15 03/07/23 17:35 Ketorolac Tromethamine 15 Mg/Ml Vial IM 03/07/23 17:16 15 mg ONCE ONE Administration Medical Decision Making Medical Decision Making MDM Narrative: Patient is a 57-year-old Malay-speaking female with history of HTN, fibromyalgia,T2DM, stroke, asthma, anemia presenting to the emergency department with complaint of left lateral neck pain radiating to left shoulder and under left arm since Monday. On exam patient is awake, A+Ox3, VS WNL, afebrile, normal neurological exam without focal deficits, physical exam findings as above. Given reported symptoms and physical exam findings, initial differential includes cervical muscle strain, spondylosis, disc degeneration, osteoarthritis. No red flag findings concerning for cord compression or myelopathy, disc herniation, malignancy. Feel pneumothorax unlikely but will obtain chest x-ray to rule out pneumothorax given that pain increases with leaning forward. Patient signed out to [facility] pending x-ray results. Differential Diagnosis Differential Diagnoses: The differential diagnosis associated with the presentation includes As per MDM. External Record Review External record reviewed: Inpatient record, Office record and Outpatient record Prescription Management I considered prescription management with: Pain Medication and Other Discharge Plan Discharge Clinical Impression: Cervical muscle strain Patient Disposition: Home, Self-Care Instructions: Cervical Strain (DC) Additional Instructions: You were evaluated in the emergency department with complaint of neck pain. Your imaging did not show any concerning findings. Your pain is likely related to a muscle strain. We recommend taking 600mg ibuprofen or 650mg Tylenol. If necessary, you can alternate these medications every three hours. For example, at noon take Tylenol, then at 3:00 take ibuprofen, then at 6:00 take Tylenol, etc. You are also being prescribed a muscle relaxer which you can use up to every 8 hours as needed as well as topical lidocaine patches which you can wear for up to 12 hours in a 24 hour period. Do not apply heat directly over the patches. You should follow up with your primary care provider as you may require physical therapy to improve your symptoms. Return to the emergency department if you develop worsening neck pain or stiffness, new weakness, numbness, or tingling to your arm, severe headaches, or any other concerning symptoms. Prescriptions: New cyclobenzaprine 5 mg tablet 5 mg PO TID PRN (Reason: muscle spasm) Qty: 10 0RF lidocaine 5 % adhesive patch,medicated 1 patch topical DAILY Qty: 15 0RF Rx Instructions: leave on most painful area for up to 12 hrs No Action sitagliptin phosphate 100 mg tablet 100 mg PO DAILY 30 Days Qty: 30 6RF metformin 500 mg tablet extended release 24hr 500 mg PO BID 30 Days Qty: 60 2RF empagliflozin 25 mg tablet 25 mg PO QAM 30 Days Qty: 30 0RF albuterol sulfate 2.5 mg /3 mL (0.083 %) solution for nebulization 2.5 mg inhalation Q6H PRN (Reason: shortness of breath or wheezing) 30 Days Qty: 180 11RF ondansetron 4 mg tablet,disintegrating 4 mg PO Q8H 4 Days Qty: 12 0RF oxycodone 5 mg tablet 5 mg PO Q4H PRN (Reason: pain) Qty: 14 0RF Rx Instructions: Patient may request partial fill; Partial Fill upon patient request. pantoprazole 20 mg tablet,delayed release (DR/EC) 1 tab PO DAILY sertraline 100 mg tablet 200 mg PO DAILY hydrochlorothiazide 25 mg tablet 25 mg PO DAILY cyanocobalamin (vitamin B-12) 250 mcg tablet 250 mcg PO DAILY topiramate 100 mg tablet 100 mg PO BID (DME) blood sugar diagnostic Strip See Rx Instructions Not Applicable TID Qty: 10 Rx Instructions: As directed (DME) blood-glucose meter Kit See Rx Instructions .ROUTE DIRECTED Qty: 1 Rx Instructions: As directed ibuprofen 600 mg tablet 600 mg PO TID PRN zolpidem [Ambien] 5 mg tablet 5 mg PO BEDTIME PRN (Reason: Insomnia) montelukast [Singulair] 10 mg tablet 10 mg PO DAILY aspirin [Adult Low Dose Aspirin] 81 mg tablet,delayed release (DR/EC) 81 mg PO DAILY (DME) FreeStyle Lite Strips Strip See Rx Instructions .ROUTE .MEDSUPPLY Qty: 50 11RF Rx Instructions: 2 times a day ferrous sulfate 325 mg (65 mg iron) tablet,delayed release (DR/EC) 325 mg PO DAILY buspirone 10 mg tablet 10 mg PO BID lisinopril 20 mg tablet 20 mg PO DAILY lorazepam 0.5 mg tablet 0.5 mg PO BEDTIME PRN prednisone 20 mg tablet See Rx Instructions PO DAILY 10 Days Qty: 15 0RF Rx Instructions: PO daily; Take 2 tabs daily x 5 days, then 1 tablet daily x 5 days levocetirizine 5 mg tablet 5 mg PO DAILY albuterol sulfate 90 mcg/actuation HFA aerosol inhaler 2 inh inhalation Q6H PRN (Reason: shortness of breath or wheezing) 30 Days Qty: 18 12RF Qvar RediHaler 80 mcg/actuation HFA aerosol breath activated 2 inh inhalation BID 30 Days Qty: 10.6 11RF Anoro Ellipta 62.5-25 mcg/actuation blister with device 1 inh inhalation DAILY 30 Days Qty: 60 11RF Referrals: Nikki James MD [Primary Care Provider] - 2 days Interventions: ED Discharge Assessment Last Done: 03/07/23 19:19 Discharge Date/Time: 03/07/23 19:20
--- NOTE | 2023-03-07 15:10 | ECG_ITS ---
Test Reason : left upper extremity pain Blood Pressure : / mmHG Vent. Rate : 094 BPM Atrial Rate : 094 BPM P-R Int : 170 ms QRS Dur : 078 ms QT Int : 350 ms P-R-T Axes : 025 007 024 degrees QTc Int : 437 ms Sinus rhythm with Premature atrial complexes Abnormal ECG When compared with ECG of 31-MAY-2022 18:46, Premature atrial complexes are now Present Referred By: Micaela Howard Electronically Signed By:RANDEE MELLO MD
[2023-03-07 16:00] VITALS: BP 106/69; PULSE 88; RESP 18; TEMP 36.5; O2SAT 98
[2023-03-07] MEDS: Cyclobenzaprine HCl 10 MG TABLET PO (17:35)
[2023-03-07] MEDS: Ketorolac Tromethamine 15 MG/ML VIAL IM (17:35)
--- NOTE | 2023-03-07 17:37 | PC.NURSE ---
pt medicated for 8/10 pain per order
[2023-03-07 19:16] VITALS: BP 101/56; PULSE 76; RESP 16; TEMP 37.1; O2SAT 98
== END 2023-03-07 19:20 | disposition home or self-care (01) ==
PROVIDERS: Emergency Provider Emergency Medicine Emergency Medical Services; PCP Family Medicine
DX: S16.1XXA Strain of muscle, fascia and tendon at neck level, initial encounter (principal); X58.XXXA Exposure to other specified factors, initial encounter; Y93.9 Activity, unspecified; Y92.9 Unspecified place or not applicable; Y99.9 Unspecified external cause status
CPT/HCPCS: 71046; 93005; 96372; 99284; J1885

== ENCOUNTER 2023-05-06 11:44 | Emergency (ER) | payer OTHER, SELFPAY ==
[2023-05-06 13:25] VITALS: BP 143/65; PULSE 85; RESP 18; TEMP 36.9; O2SAT 97; BMI 37.2
--- NOTE | 2023-05-06 13:26 | ED.ALLEREA ---
HPI - Allergic Reaction General Chief complaint: Allergic Reaction Stated complaint: body rash/ allergic reaction?? Time Seen by Provider: 05/06/23 14:47 Source: patient and family Mode of arrival: ambulatory Limitations: no limitations History of Present Illness HPI narrative: 57-year-old female with history of diabetes, obesity, hypertension, asthma, known allergies here with complaints of itching rash which began on her face and neck and have now spread diffusely for the last 3-4 weeks. Patient went to urgent care May 03 and was prescribed cetirizine and hydroxyzine but she does not like this is helping. She is also using Benadryl intermittently which does seem to help with the itching. She denies any new medications, products, foods. She uses dove soap, CeraVe moisturizer. She denies any difficulty breathing, difficulty swallowing, cough, wheezing, shortness of breath, vomiting, diarrhea, abdominal cramping. Of note patient does see an single ending machine operator at [address] [place] [address]. She receives regular allergy injections. She has not reached out to her single ending machine operator to let them know what is going on with her. She has not seen her primary care Related Data Home Medications Medication Instructions Recorded Confirmed blood sugar diagnostic #10 ea 01/20/20 02/24/23 blood-glucose meter #1 ea 01/20/20 02/24/23 cyanocobalamin (vitamin B-12) 250 250 mcg PO DAILY 01/20/20 02/24/23 mcg tablet hydrochlorothiazide 25 mg tablet 25 mg PO DAILY 01/20/20 02/24/23 sertraline 100 mg tablet 200 mg PO DAILY 01/20/20 02/24/23 topiramate 100 mg tablet 100 mg PO BID 01/20/20 02/24/23 aspirin 81 mg tablet,delayed 81 mg PO DAILY 01/23/20 02/24/23 release (Adult Low Dose Aspirin) montelukast 10 mg tablet 10 mg PO DAILY 01/23/20 02/24/23 (Singulair) zolpidem 5 mg tablet (Ambien) 5 mg PO BEDTIME PRN Insomnia 01/23/20 02/24/23 ferrous sulfate 325 mg (65 mg 325 mg PO DAILY 07/07/21 02/24/23 iron) tablet,delayed release pantoprazole 20 mg tablet,delayed 1 tab PO DAILY 09/25/21 02/24/23 release buspirone 10 mg tablet 10 mg PO BID 02/22/22 02/24/23 ibuprofen 600 mg tablet 600 mg PO TID PRN 02/22/22 02/24/23 lisinopril 20 mg tablet 20 mg PO DAILY 02/22/22 02/24/23 lorazepam 0.5 mg tablet 0.5 mg PO BEDTIME PRN 02/22/22 02/24/23 levocetirizine 5 mg tablet 5 mg PO DAILY 05/13/22 02/24/23 Previous Rx's Medication Instructions Recorded blood sugar diagnostic (FreeStyle #50 ea 06/22/21 Lite Strips) sitagliptin phosphate 100 mg tablet 100 mg PO DAILY 30 days #30 tabs 08/19/21 ondansetron 4 mg disintegrating 4 mg PO Q8H 4 days #12 tabs 09/22/21 tablet metformin 500 mg tablet,extended 500 mg PO BID 30 days #60 tabs 02/17/22 release 24hr (osmotic) prednisone 20 mg tablet See Rx Instructions PO DAILY 10 02/22/22 days #15 tabs empagliflozin 25 mg tablet 25 mg PO QAM 30 days #30 tabs 03/31/22 oxycodone 5 mg tablet 5 mg PO Q4H PRN pain #14 tabs 05/31/22 albuterol sulfate 2.5 mg/3 mL 2.5 mg (3 mL) inhalation Q6H PRN 01/16/23 (0.083 %) solution for nebulization shortness of breath or wheezing 30 days #180 mL albuterol sulfate 90 mcg/actuation 2 inh inhalation Q6H PRN shortness 02/22/23 aerosol inhaler of breath or wheezing 30 days #18 grams beclomethasone dipropionate 80 2 inh inhalation BID 30 days #10.6 02/22/23 mcg/actuation HFA breath activated grams aerosol (Qvar RediHaler) umeclidinium 62.5 mcg-vilanterol 1 inh inhalation DAILY 30 days #60 02/22/23 25 mcg/actuation powdr for ea inhalation (Anoro Ellipta) cyclobenzaprine 5 mg tablet 5 mg PO TID PRN muscle spasm #10 03/07/23 tabs lidocaine 5 % topical patch 1 patch topical DAILY #15 ea 03/07/23 cetirizine 10 mg tablet (Zyrtec) 10 mg PO DAILY #30 tabs 05/06/23 famotidine 40 mg tablet 40 mg PO DAILY #30 tabs 05/06/23 prednisone 20 mg tablet 60 mg (3 x 20 mg) PO DAILY #15 tabs 05/06/23 triamcinolone acetonide 0.1 % 1 appl topical BID #453.6 grams 05/06/23 topical cream Allergies Allergy/AdvReac Type Severity Reaction Status Date / Time amoxicillin [AMOXICILLIN] Allergy Unknown UNKNOWN, Verified 05/06/23 13:25 anaphylaxis Iodinated Contrast Media Allergy Unknown ANAPHYLAXIS Verified 05/06/23 13:25 [IODINATED CONTRAST MEDIA] morphine [MORPHINE] Allergy Unknown FEELS LIKE Verified 05/06/23 13:25 HER THROAT CLOSES AND SHE GETS SHORT OF BREATH, headache Penicillins [PENICILLINS] Allergy Unknown UNKNOWN Verified 05/06/23 13:25 beta-blockers Allergy Unknown difficulty Uncoded 02/24/23 13:57 (beta-adrenergic breathing IV cotrast dye Allergy Unknown Anaphylaxis Uncoded 02/24/23 13:57 Review of Systems Review of Systems: Yes all other systems are reviewed and are negative Constitutional: Constitutional: Reports no additional constitutional complaints, Denies body ache(s), Denies chills, Denies fever(s), Denies headache(s) and Denies weakness Eyes: Eyes: Reports no additional eye complaints and Denies change in vision ENT: Reports system reviewed and no additional complaints, except as documented, Denies dizziness, Denies headache(s), Denies nasal congestion, Denies nasal discharge and Denies neck pain Cardiovascular: Cardiovascular: Reports no additional cardiovascular complaints, Denies chest pain, Denies leg edema and Denies dyspnea Respiratory: Respiratory: Reports no additional respiratory complaints, Denies cough and Denies dyspnea Gastrointestinal: Gastrointestinal: Reports no additional gastrointestinal complaints, Denies abdominal pain, Denies diarrhea, Denies nausea and Denies vomiting Genitourinary: Genitourinary: Reports no additional female genitourinary complaints and Denies urinary incontinence Musculoskeletal: Musculoskeletal: Reports no additional musculoskeletal complaints, Denies back pain, Denies arthralgias, Denies joint swelling, Denies neck pain, Denies numbness and Denies tingling Integumentary/Breasts: Skin/Breast: Reports system reviewed and no additional complaints, except as docu and Reports rash Neurologic: Reports system reviewed and no additional complaints, except as documented, Denies Abnormal speech present, Denies dizziness, Denies headache(s), Denies numbness, Denies tingling and Denies weakness PMFSH Past Medical History Attestation statement: The following information was validated with the patient. Source: old records reviewed and nursing notes reviewed Onset Date is defined in the Problem List Problems that require an onset date and time if occurred within 24 hrs of arrival to the ED Aortic Dissection and Rupture; Neurologic impairment; Cardiopulmonary Arrest; Endotracheal Intubation; Insertion or Replacement of Mechanical Circulatory Assist Device Medical History Eczema Chest pain Asthma Iron deficiency anemia Fibromyalgia Obesity due to excess calories Obesity (BMI 30-39.9) Diabetic polyneuropathy associated with type 2 diabetes mellitus Diabetes type 2, controlled Sebaceous gland hyperplasia of vulva Vulvar abscess Insomnia Stroke Acid reflux Asthma Depression Migraine Obesity, morbid HTN (hypertension) Surgical History Hx of craniotomy Hx of abdominoplasty History of carpal tunnel surgery Hx of adenoidectomy Hx of left hemicolectomy History of surgical removal of pilonidal cyst Hx of section Family History Family History Father Family history of stroke Family hx of hypertension Mother Family hx of hypertension History of hyperthyroidism Hx of diabetes mellitus Hx pulmonary embolism Social History Social History Household Members: None Patient Tobacco Use Status: Never used Tobacco Advance Directives: No Advance Directives Information Provided: No service: No Current occupational status: unemployed Physical Exam ED Vital Signs: Vital Signs - 24 hr 05/06/23 13:25 Temperature 98.5 F Pulse Rate 85 Respiratory Rate 18 Blood Pressure 143/65 H Pulse Oximetry 97 Oxygen Delivery Method Room Air BMI result Body Mass Index 37.2 Const General: cooperative, healthy appearing, comfortable and no acute distress Orientation/consciousness: patient oriented x3 Limitations: no limitations HENMT Head: Yes normal to inspection Ears: hearing grossly normal bilaterally General nose exam: Normal external nose present Face and sinus: Yes normal facial exam Mouth: Normal oral and palatal mucosa present Throat: Yes posterior oropharynx normal, Yes tonsils normal and Yes uvula midline Eyes General: appearance normal, both eyes and all related structures Pupils: Equal, round and reactive pupils present Neck Other: No stridor Neck: Yes normal visual inspection, Yes full ROM and Yes no lymphadenopathy Chest Chest palpation & inspection: normal inspection of the chest Resp Effort & Inspection: normal respiratory effort Auscultation: clear to auscultation bilaterally Cardio Rate: regular rate Rhythm: regular rhythm Peripheral pulses: Peripheral pulses 2+ throughout GI Inspection: Yes normal to inspection Palpation (GI): Soft to palpation and nontender Auscultation: normal bowel sounds Back/Spine/Pelvis Thoracic/Lumbar Spine: thoracic and lumbar spine normal to inspection Skin Other: around the neck there is an urticarial rash. There are several urticarial lesions on the face. There are several lesions noted over the trunk, thighs and upper arms. The rash is blanchable. It is not sloughing. There is no rash noted over the hands or feet. General skin exam: no rashes or lesions noted Neuro General: patient oriented x3, no focal motor deficits and normal sensation to monofilament Cranial nerves: Yes Equal, round and reactive pupils present Cognition (Neuro): normal cognition Speech: No Abnormal speech present Gait exam (Neuro): Normal gait present Motor exam (neuro): 5/5 motor strength present throughout Extrem General: Yes normal to inspection Course Course Course Narrative: This is an RME: Additional HPI, ROS, PE not included below will be deferred to primary provider. This is a 31-[id number]-Hebrew-speaking female with history of HTN, fibromyalgia, T2DM, stroke, asthma, anemia presenting to the ER with complaints of allergic reaction x 3 weeks, worsening over the last few days. Rash noted to the anterior aspect of the neck, no wheezing, lungs clear to auscultation bilaterally. No recent changes in soaps, lotions, detergents, medications, or new foods. Airways patent. Patient likely would benefit from IV medications, she is stable, vital signs stable. Plan: IV medications, further ER evaluation needed Medical Decision Making Medical Decision Making MDM Narrative: 57-year-old female with history of diabetes, obesity, hypertension, asthma, known allergies here with complaints of itching rash which began on her face and neck and have now spread diffusely for the last 3-4 weeks. Patient went to urgent care May 03 and was prescribed cetirizine and hydroxyzine but she does not like this is helping. She is also using Benadryl intermittently which does seem to help with the itching. She denies any new medications, products, foods. She uses dove soap, CeraVe moisturizer. She denies any difficulty breathing, difficulty swallowing, cough, wheezing, shortness of breath, vomiting, diarrhea, abdominal cramping. Of note patient does see an single ending machine operator at [address] [place] [address]. She receives regular allergy injections. She has not reached out to her single ending machine operator to let them know what is going on with her. She has not seen her primary care around the neck there is an urticarial rash. There are several urticarial lesions on the face. There are several lesions noted over the trunk, thighs and upper arms. The rash is blanchable. It is not sloughing. There is no rash noted over the hands or feet. No airway involvement or angioedema. Patient will be given prednisone, famotidine, topical steroids (told to spare face) and Zyrtec. I recommend she continue Benadryl p.r.n. and follow up outpatient with her single ending machine operator. Reviewed worrisome signs and symptoms of when to return to the emergency room. Comfortable plan for discharge home. Differential Diagnosis Differential Diagnoses: The differential diagnosis associated with the presentation includes General allergic reaction, urticaria Admission/Observation Consideration of admission/observation: Escalation of care including admission/observation considered no angioedema or airway involvement suggest need for admission for observation Independent Historian Clinical information obtained from an independent historian. History obtained from or confirmed by: Spouse daughter Chronic Conditions Patient?s care impacted by: Diabetes and Hypertension Discharge Plan Discharge Clinical Impression: Urticaria Patient Disposition: Home, Self-Care Instructions: Urticaria (ED) Additional Instructions: Continue benadryl as needed Follow-up with single ending machine operator Return for worsening symptoms Contin?e benadryl seg?n sea necesario Seguimiento con alerg?logo. Regresar si los s?ntomas empeoran Prescriptions: New prednisone 20 mg tablet 60 mg PO DAILY Qty: 15 0RF famotidine 40 mg tablet 40 mg PO DAILY Qty: 30 0RF triamcinolone acetonide 0.1 % cream 1 appl topical BID Qty: 453.6 0RF cetirizine [Zyrtec] 10 mg tablet 10 mg PO DAILY Qty: 30 0RF No Action sitagliptin phosphate 100 mg tablet 100 mg PO DAILY 30 Days Qty: 30 6RF metformin 500 mg tablet extended release 24hr 500 mg PO BID 30 Days Qty: 60 2RF empagliflozin 25 mg tablet 25 mg PO QAM 30 Days Qty: 30 0RF albuterol sulfate 2.5 mg /3 mL (0.083 %) solution for nebulization 2.5 mg inhalation Q6H PRN (Reason: shortness of breath or wheezing) 30 Days Qty: 180 11RF ondansetron 4 mg tablet,disintegrating 4 mg PO Q8H 4 Days Qty: 12 0RF oxycodone 5 mg tablet 5 mg PO Q4H PRN (Reason: pain) Qty: 14 0RF Rx Instructions: Patient may request partial fill; Partial Fill upon patient request. pantoprazole 20 mg tablet,delayed release (DR/EC) 1 tab PO DAILY cyclobenzaprine 5 mg tablet 5 mg PO TID PRN (Reason: muscle spasm) Qty: 10 0RF lidocaine 5 % adhesive patch,medicated 1 patch topical DAILY Qty: 15 0RF Rx Instructions: leave on most painful area for up to 12 hrs sertraline 100 mg tablet 200 mg PO DAILY hydrochlorothiazide 25 mg tablet 25 mg PO DAILY cyanocobalamin (vitamin B-12) 250 mcg tablet 250 mcg PO DAILY topiramate 100 mg tablet 100 mg PO BID (DME) blood sugar diagnostic Strip See Rx Instructions Not Applicable TID Qty: 10 Rx Instructions: As directed (DME) blood-glucose meter Kit See Rx Instructions .ROUTE DIRECTED Qty: 1 Rx Instructions: As directed ibuprofen 600 mg tablet 600 mg PO TID PRN zolpidem [Ambien] 5 mg tablet 5 mg PO BEDTIME PRN (Reason: Insomnia) montelukast [Singulair] 10 mg tablet 10 mg PO DAILY aspirin [Adult Low Dose Aspirin] 81 mg tablet,delayed release (DR/EC) 81 mg PO DAILY (DME) FreeStyle Lite Strips Strip See Rx Instructions .ROUTE .MEDSUPPLY Qty: 50 11RF Rx Instructions: 2 times a day ferrous sulfate 325 mg (65 mg iron) tablet,delayed release (DR/EC) 325 mg PO DAILY buspirone 10 mg tablet 10 mg PO BID lisinopril 20 mg tablet 20 mg PO DAILY lorazepam 0.5 mg tablet 0.5 mg PO BEDTIME PRN prednisone 20 mg tablet See Rx Instructions PO DAILY 10 Days Qty: 15 0RF Rx Instructions: PO daily; Take 2 tabs daily x 5 days, then 1 tablet daily x 5 days levocetirizine 5 mg tablet 5 mg PO DAILY albuterol sulfate 90 mcg/actuation HFA aerosol inhaler 2 inh inhalation Q6H PRN (Reason: shortness of breath or wheezing) 30 Days Qty: 18 12RF Qvar RediHaler 80 mcg/actuation HFA aerosol breath activated 2 inh inhalation BID 30 Days Qty: 10.6 11RF Anoro Ellipta 62.5-25 mcg/actuation blister with device 1 inh inhalation DAILY 30 Days Qty: 60 11RF Referrals: Nikki James MD [Primary Care Provider] - 1 week Print Language: Hebrew
== END 2023-05-06 16:01 | disposition home or self-care (01) ==
PROVIDERS: Emergency Provider Emergency Medicine; PCP Family Medicine
DX: L50.9 Urticaria, unspecified (principal); E11.9 Type 2 diabetes mellitus without complications; I10 Essential (primary) hypertension; Z79.82 Long term (current) use of aspirin; Z79.899 Other long term (current) drug therapy; Z79.84 Long term (current) use of oral hypoglycemic drugs
CPT/HCPCS: 99282; 99283

== ENCOUNTER 2023-07-24 11:33 | Outpatient (REF) | payer OTHER, SELFPAY ==
[2023-07-24 14:12] LABS: TSH reflex Free T4 1.67 uIU/mL (0.32-4.0)
== END 2023-07-24 11:34 | disposition home or self-care (01) ==
LOC: HO.HHCL 11:33
PROVIDERS: Visit Provider Family Medicine
DX: Z13.89 Encounter for screening for other disorder (principal)
CPT/HCPCS: 36415; 84443

== ENCOUNTER 2023-07-24 13:46 | Outpatient (REF) | payer OTHER, SELFPAY ==
--- NOTE | ~2023-07-24 | US_ITS ---
EXAMINATION: US THYROID CLINICAL INFORMATION: Tenderness left thyroid. COMPARISON: Thyroid ultrasound 10/18/2018. CTA neck 07/07/2017. TECHNIQUE: Linear transducer grayscale and color Doppler examination with attention to the region of the thyroid. FINDINGS: SIZE: Measurements of the thyroid lobes and nodules are given in sagittal, anteroposterior and transverse dimensions respectively. Right Thyroid Lobe: 4.9 x 1.5 x 1.6 cm, volume 5.9 mL. Previously 5.8 x 1.4 x 1.9 cm, volume 8.2 mL. Parenchyma: The gland echotexture is homogeneous. Thyroid vascularity is normal. Left Thyroid Lobe: 4.0 x 1.0 x 1.5 cm, volume 3.2 mL. Previously 4.6 x 1.1 x 1.6 cm, volume 4.5 mL. Parenchyma: The gland echotexture is homogeneous. Thyroid vascularity is normal. Isthmus: 0.3 cm in maximum AP dimension. Previously 0.3 cm. No suspicious thyroid nodule is seen. NODES: No lymphadenopathy is seen in the tissue surrounding the thyroid gland. US/US thyroid IMPRESSION: No suspicious thyroid nodule identified. ACR TI-RADS RECOMMENDATION REFERENCE: Ultrasound-guided fine-needle aspiration, follow up ultrasound, no further followup. * TR1 (0 point) and TR2 (2 points): No FNA or followup * TR3 (3 points): FNA if more than or equal to 2.5 cm in maximum dimension, follow up ultrasound in 1, 3 and 5 years if 1.5 to 2.4 cm in maximum dimension. * TR4 (4-6 points): FNA if more than or equal to 1.5 cm in maximum dimension, follow up ultrasound in 1, 2, 3 and 5 years if 1 to 1.4 cm in maximum dimension. * TR5 (more than or equal to 7 points): FNA if more than or equal to 1 cm in maximum dimension, follow up ultrasound every year for 5 years if 0.5 to 0.9 cm in maximum dimension. * TR3, TR4 or TR5 nodules that are below the size threshold for follow up receive no followup.
== END 2023-07-24 13:47 | disposition home or self-care (01) ==
LOC: HO.US 13:46
PROVIDERS: PCP Family Medicine; Visit Provider Family Medicine
DX: E07.89 Other specified disorders of thyroid (principal)
CPT/HCPCS: 36415; 76536; 84443

== ENCOUNTER 2023-10-09 14:11 | Outpatient (AMB) | payer OTHER, SELFPAY ==
[2023-10-09 14:23] VITALS: PULSE 89; O2SAT 98; BMI 37.3
--- NOTE | 2023-10-09 14:23 | A.OFFVIS_ITS ---
Vital Signs 10/09/23 14:23 Height 5 ft 4 in Weight 217 lb 2.485 oz BMI 37.3 Pulse 89 Pulse Source Pulse Oximeter Pulse Oximetry (%) 98 Oxygen Delivery Method Room Air Intake Visit Reasons: Asthma Box Stamper Required: No Allergies amoxicillin [AMOXICILLIN] Allergy (Unknown, Verified 10/09/23 14:24) UNKNOWN, anaphylaxis Iodinated Contrast Media [IODINATED CONTRAST MEDIA] Allergy (Unknown, Verified 10/09/23 14:24) ANAPHYLAXIS morphine [MORPHINE] Allergy (Unknown, Verified 10/09/23 14:24) FEELS LIKE HER THROAT CLOSES AND SHE GETS SHORT OF BREATH, headache Penicillins [PENICILLINS] Allergy (Unknown, Verified 10/09/23 14:24) UNKNOWN beta-blockers (beta-adrenergic Allergy (Unknown, Uncoded 10/09/23 14:24) difficulty breathing IV cotrast dye Allergy (Unknown, Uncoded 10/09/23 14:24) Anaphylaxis HPI Comments Details: The patient is a 58-year-old woman with lifelong asthma. She has had pretty significant asthma for many years. She was previously evaluated at [facility]. There she was placed on multiple courses of prednisone in addition to placing her on inhaled steroids. At some point her condition improved. She was on allergy medications as well. Ultimately her senior program analyst left then she was lost to follow-up. She ran out of her inhalers and she started becoming more symptomatic. She has been struggling with her breathing. Recently she was started on QVAR and she has been feeling a little better although she still continues to have daytime daily and nighttime symptoms. She has not had allergy testing in a while. She did have blood work in the systems from October 2021 and also previous years. She has had significant eosinophilia every time she has blood work done. That 1 time she did not have eosinophilia was when she was on systemic steroids. Based on her significant asthma she may benefit from biologic therapy. Will maximize her respiratory therapy to see if she can be stabilize. The patient will come back after her breathing studies and we will assess her response to inhaler therapy. The 05/13/2022 the patient is here for a pulmonary follow-up visit. Overall she is doing well from a respiratory status. She continues with the QVAR. She does not use her rescue inhaler more than twice a week. Overall her asthma has been relatively well controlled. She denies needing prednisone or any recent exacerbations. We did review her blood work. 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 Her allergies also demonstrates significant environmental allergies specially in the springtime she probably have increased symptoms. The patient is aware that if her symptoms improve we can always maximize her respiratory therapy. Otherwise we need to consider biologic therapies to improve her allergic reactions the patient also is complaining of some discomfort primarily in the upper abdominal quadrants. The 10 to worsen when she takes a deep breath in. Back in September she was admitted to the hospital significant about tightest after medication cost issues. But, she has been off the medicine and she has not had any evidence of any jaundice like she had then. Her respiratory status is stable in her lungs sound well without any crackles or wheezing. I will have her undergo a chest x-ray and blood work to make sure that there isn't anything going on in the lung mendez. Most likely this is more an abdominal issue with significant abdominal bloating and potential residual inflammation. 02/22/2023 the patient is here for a pulmonary follow-up visit. The patient continues to struggle with her asthma. Having chest tightness and also has been struggling with her eczema. Significant pleuritic and uncomfortable. She did follow-up with Dermatology and did did prescribe her Dupixent. She has not been able to started since she has not been able to receive any education how to use it. Explained to the patient that the Dupixent will also help her asthma. We were able to set her up with a nursing visit this week in order for her to be able to start her loading dose and then after that she can continue with her maintenance injections every 2 weeks. She continues on the Anoro and also on the QVAR. I am hopeful that when she starts Dupixent she may be able to deescalate some of the respiratory medications. We will have to 1st start the Dupixent and then assess her response. She is going to monitor closely for any adverse effects including conjunctivitis. 10/09/2023 the patient is here for pulmonary follow-up visit. The patient is having increasing asthma symptoms. Significant wheezing or coughing. Also complains of nasal congestion. She did try the Dupixent injection. However, she developed the rash which was pretty significant felt to be worsening eczema. Therefore she stopped it. She continues on the QVAR. She continues use her rescue inhaler multiple times a day. Her asthma is not controlled at this time. Likely worsened with the he humidity that seems to be little bit more apparently the valley. We are going to go ahead and maximize her respiratory therapy switching her over to Breztri. she had tried Anoro in the past him did not do well with the powder either. Her last chest x-ray was done back in 03/13/2023 demonstrating no acute disease. No additional imaging studies warranted at this time. The patient will continue with current respiratory therapy. If she does not respond to the therapy she can always call so we can further evaluate. FORMERLY [facility] Medical History Eczema Chest pain Asthma Iron deficiency anemia Fibromyalgia Obesity due to excess calories Obesity (BMI 30-39.9) Diabetic polyneuropathy associated with type 2 diabetes mellitus Diabetes type 2, controlled Sebaceous gland hyperplasia of vulva Vulvar abscess Insomnia Stroke Acid reflux Asthma Depression Migraine Obesity, morbid HTN (hypertension) Surgical History Hx of craniotomy Hx of abdominoplasty History of carpal tunnel surgery Hx of adenoidectomy Hx of left hemicolectomy History of surgical removal of pilonidal cyst Hx of section Family History Father Family history of stroke Family hx of hypertension Mother Family hx of hypertension History of hyperthyroidism Hx of diabetes mellitus Hx pulmonary embolism Social History Household Members: None Patient Tobacco Use Status: Never used Tobacco service: No Current occupational status: unemployed Female Reproductive History Menstrual Age of Menarche: 15 Review of Systems Const Denies fatigue, Denies weight gain and Reports weight loss Eyes Denies blurry vision ENT Denies sore throat Card Denies chest pain and Denies palpitations Resp Denies chest congestion, Reports cough and Denies wheezing GI Reports abdominal pain, Denies constipation and Denies diarrhea Denies urinary frequency and Denies dysuria Musc Denies muscle cramps, Denies muscle weakness, Denies numbness and Denies tingling Skin/Breast Reports rash Neuro Denies burning sensations, Denies numbness, Denies tingling and Denies paresthesias Psych Denies depression Endo Denies fatigue, Denies polydipsia, Denies polyuria and Denies palpitations Donovan/Lymph Denies easy bruising Aller/Immun Denies wheezing Physical Exam Vital Signs: Last Vital Signs Pulse 89 10/09/23 14:23 Pulse Ox 98 10/09/23 14:23 Oxygen Delivery Method Room Air 10/09/23 14:23 BMI result Body Mass Index 37.3 Const General: no acute distress and alert HEENT Head: Yes normocephalic and Yes atraumatic Eyes Sclerae: sclerae normal EOM: EOMs intact bilaterally Neck Neck: Yes no lymphadenopathy, Yes trachea midline and Yes no JVD Thyroid: Thyroid normal Chest Chest palpation & inspection: normal inspection of the chest Resp Effort & Inspection: normal respiratory effort and prolonged expiratory phase Auscultation: no wheezes and diminished lung sounds Cardio Rate: regular rate Rhythm: regular rhythm Heart sounds: S1 normal heart sound present and S2 normal heart sound present Peripheral pulses: Peripheral pulses 2+ throughout GI Inspection: Yes normal to inspection and No distended Auscultation: normal bowel sounds Skin Other: No acanthosis nigricans or diabetic dermopathy Neuro Deep tendon reflexes (DTR's): Rt Biceps (C5, C6): 2+, Left biceps reflex intensity grade: 2+, Right patellar reflex intensity grade: 2+ and Left patellar reflex intensity grade: 2+ Extrem Other: General: Yes normal gait, No clubbing, No cyanosis and No edema Psych Affect: normal affect Attitude: cooperative Assessment & Plan Assessment & Plan (1) Asthma: Code(s): J45.909 - Unspecified asthma, uncomplicated Category: Medical Qualifiers: Asthma complication type: uncomplicated Asthma persistence: persistent Asthma severity: moderate Qualified Code(s): J45.40 - Moderate persistent asthma, uncomplicated (2) Acid reflux: Code(s): K21.9 - Gastro-esophageal reflux disease without esophagitis Category: Medical Qualifiers: Esophagitis presence: without esophagitis Qualified Code(s): K21.9 - Gastro-esophageal reflux disease without esophagitis (3) Eczema: Code(s): L30.9 - Dermatitis, unspecified Category: Medical Qualifiers: Eczema type: unspecified Qualified Code(s): L30.9 - Dermatitis, unspecified Plan stop QVAR 40 start Breztri BID stopped Dupixent due side effects ALEJANDRA as needed Continue Singulair reflux diet F/U 6-8 months Medications: New biikgqxavj-sginmjmx-rehqtlrnpj 160-9-4.8 mcg/actuation (Breztri Aerosphere) 2 inhalations inhalation BID 30 days 10.7 grams 11RF roflumilast (Daliresp) 250 mcg PO DAILY 30 days 30 tabs 11RF J44.9 - Chronic obstructive pulmonary disease, unspecified Changed From montelukast (Singulair) 10 mg PO DAILY To montelukast (Singulair) 10 mg PO DAILY 30 days 30 tabs 11RF Refilled albuterol sulfate 90 mcg/actuation 2 inhalations inhalation Q6H 30 days PRN 18 grams 12RF shortness of breath or wheezing J44.9 - Chronic obstructive pulmonary disease, unspecified Coding Level of Care Code Est Pt Level 4 (70079) Diagnoses Moderate persistent asthma without complication J45.40 Asthma complication type: uncomplicated Asthma persistence: persistent Asthma severity: moderate Gastroesophageal reflux disease without esophagitis K21.9 Esophagitis presence: without esophagitis Eczema, unspecified type L30.9 Eczema type: unspecified Time Spent (min) 17
== END 2023-10-09 14:50 | disposition home or self-care (01) ==
PROVIDERS: PCP Family Medicine; Visit Provider Hospitalist
DX: J45.40 Moderate persistent asthma, uncomplicated (principal); K21.9 Gastro-esophageal reflux disease without esophagitis; L30.9 Dermatitis, unspecified
CPT/HCPCS: 99214

== ENCOUNTER → 2023-10-09 14:11 | Outpatient (BNVA) | payer OTHER, SELFPAY | PROVIDERS: PCP Family Medicine; Visit Provider Hospitalist | DX: J45.40 Moderate persistent asthma, uncomplicated (principal); L30.9 Dermatitis, unspecified; K21.9 Gastro-esophageal reflux disease without esophagitis | CPT/HCPCS: 99212 ==

== ENCOUNTER 2024-02-12 11:32 | Outpatient (REF) | payer OTHER, SELFPAY ==
[2024-02-12 13:40] LABS: Estimated Average Glucose 174 mg/dL; Hemoglobin A1C 220.3078 umol/L; Hemoglobin A1c % 7.7 % (<6.0)
[2024-02-12 14:35] LABS: Alanine Aminotransferase 109 U/L (0-31); Albumin Level 4.1 g/dL (3.5-5.0); Alkaline Phosphatase 90 U/L (39-117); Anion Gap 13 (12-20); Aspartate Amino Transferase 100 U/L (5-31); Bilirubin Direct 0.3 mg/dL (0.0-0.5); Bilirubin Total 0.8 mg/dL (0.0-1.0); Blood Urea Nitrogen 14 mg/dL (9-16); Calcium 9.7 mg/dL (8.4-10.2); Carbon Dioxide 28 mmol/L (22-29); Chloride 101 mmol/L (96-108); Cholesterol 159 mg/dL (<200); Estimated Glomerular Filt Rate > 60; Glucose Random 155 mg/dL (60-115); HDL Cholesterol 56 mg/dL (>40); LDL Cholesterol Calculated 86 mg/dL (<100); Potassium 4.2 mmol/L (3.3-5.1); Sodium 138 mmol/L (135-145); Total Protein 7.9 g/dL (6.5-8.0); Triglycerides 86 mg/dL (<150)
[2024-02-12 14:46] LABS: Creatinine Urine 100.78 mg/dL; Microalbum/Creatinine Ratio Ur 6.9 ug/mg cr (<30)
== END 2024-02-12 11:33 | disposition home or self-care (01) ==
LOC: HO.HHCL 11:32
PROVIDERS: Visit Provider Family Medicine
DX: E11.9 Type 2 diabetes mellitus without complications (principal)
CPT/HCPCS: 36415; 80048; 80061; 80076; 82043; 82570; 83036

== ENCOUNTER 2024-02-14 11:38 | Outpatient (AMB) | payer OTHER, SELFPAY ==
--- NOTE | 2024-02-14 11:42 | MHC.OFFVIS ---
Vital Signs 02/14/24 11:43 Height 5 ft 4 in Weight 219 lb BMI 37.6 BP 128/70 Blood Pressure Location Lt brachial Position Sitting Pulse 89 Pulse Source Pulse Oximeter Pulse Oximetry (%) 95 Oxygen Delivery Method Room Air Intake Visit Reasons: Asthma Drafter Directional Survey Required: No Allergies amoxicillin [AMOXICILLIN] Allergy (Unknown, Verified 02/14/24 11:46) UNKNOWN, anaphylaxis Iodinated Contrast Media [IODINATED CONTRAST MEDIA] Allergy (Unknown, Verified 02/14/24 11:46) ANAPHYLAXIS morphine [MORPHINE] Allergy (Unknown, Verified 02/14/24 11:46) FEELS LIKE HER THROAT CLOSES AND SHE GETS SHORT OF BREATH, headache Penicillins [PENICILLINS] Allergy (Unknown, Verified 02/14/24 11:46) UNKNOWN beta-blockers (beta-adrenergic Allergy (Unknown, Uncoded 02/14/24 11:46) difficulty breathing IV cotrast dye Allergy (Unknown, Uncoded 02/14/24 11:46) Anaphylaxis HPI Comments Details: The patient is a 58-year-old woman with lifelong asthma. She has had pretty significant asthma for many years. She was previously evaluated at [facility]. There she was placed on multiple courses of prednisone in addition to placing her on inhaled steroids. At some point her condition improved. She was on allergy medications as well. Ultimately her air quality specialist left then she was lost to follow-up. She ran out of her inhalers and she started becoming more symptomatic. She has been struggling with her breathing. Recently she was started on QVAR and she has been feeling a little better although she still continues to have daytime daily and nighttime symptoms. She has not had allergy testing in a while. She did have blood work in the systems from October 2021 and also previous years. She has had significant eosinophilia every time she has blood work done. That 1 time she did not have eosinophilia was when she was on systemic steroids. Based on her significant asthma she may benefit from biologic therapy. Will maximize her respiratory therapy to see if she can be stabilize. The patient will come back after her breathing studies and we will assess her response to inhaler therapy. The 05/13/2022 the patient is here for a pulmonary follow-up visit. Overall she is doing well from a respiratory status. She continues with the QVAR. She does not use her rescue inhaler more than twice a week. Overall her asthma has been relatively well controlled. She denies needing prednisone or any recent exacerbations. We did review her blood work. 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 Her allergies also demonstrates significant environmental allergies specially in the springtime she probably have increased symptoms. The patient is aware that if her symptoms improve we can always maximize her respiratory therapy. Otherwise we need to consider biologic therapies to improve her allergic reactions the patient also is complaining of some discomfort primarily in the upper abdominal quadrants. The 10 to worsen when she takes a deep breath in. Back in September she was admitted to the hospital significant about tightest after medication cost issues. But, she has been off the medicine and she has not had any evidence of any jaundice like she had then. Her respiratory status is stable in her lungs sound well without any crackles or wheezing. I will have her undergo a chest x-ray and blood work to make sure that there isn't anything going on in the lung mendez. Most likely this is more an abdominal issue with significant abdominal bloating and potential residual inflammation. 02/22/2023 the patient is here for a pulmonary follow-up visit. The patient continues to struggle with her asthma. Having chest tightness and also has been struggling with her eczema. Significant pleuritic and uncomfortable. She did follow-up with Dermatology and did did prescribe her Dupixent. She has not been able to started since she has not been able to receive any education how to use it. Explained to the patient that the Dupixent will also help her asthma. We were able to set her up with a nursing visit this week in order for her to be able to start her loading dose and then after that she can continue with her maintenance injections every 2 weeks. She continues on the Anoro and also on the QVAR. I am hopeful that when she starts Dupixent she may be able to deescalate some of the respiratory medications. We will have to 1st start the Dupixent and then assess her response. She is going to monitor closely for any adverse effects including conjunctivitis. 10/09/2023 the patient is here for pulmonary follow-up visit. The patient is having increasing asthma symptoms. Significant wheezing or coughing. Also complains of nasal congestion. She did try the Dupixent injection. However, she developed the rash which was pretty significant felt to be worsening eczema. Therefore she stopped it. She continues on the QVAR. She continues use her rescue inhaler multiple times a day. Her asthma is not controlled at this time. Likely worsened with the he humidity that seems to be little bit more apparently the [place]. We are going to go ahead and maximize her respiratory therapy switching her over to Breztri. she had tried Anoro in the past him did not do well with the powder either. Her last chest x-ray was done back in 03/13/2023 demonstrating no acute disease. No additional imaging studies warranted at this time. The patient will continue with current respiratory therapy. If she does not respond to the therapy she can always call so we can further evaluate. 02/14/2024 the patient is here for a pulmonary follow-up visit. The patient overall is doing better. She started the Breztri inhaler and it has been affecting beneficial. Although she still continues have a wheeze. She is using Singulair and also using Zyrtec. She does have underlying allergies. She already tried and failed Dupixent. She did have blood work and demonstrating an elevated eosinophil level. Therefore we could treat her with Fasenra. Although she recently was in the hospital with hepatitis it appears to be autoimmune with elevated anti smooth muscle antibody. I will refer her back to GI she should have this further evaluated. In the meantime the patient also suffers from arthralgias. She may have a component the mixed connective tissue disorder. She may benefit from a Rheumatology evaluation. She should follow-up with her primary care doctor regarding that. She is going to have blood work done with her primary care in the rechecking all her organ functions. If her kidney function liver functions are stable and she is still having hard time with the breathing she will call our office in order to start her on Fasenra. FORMERLY [facility] Medical History Eczema Chest pain Asthma Iron deficiency anemia Fibromyalgia Obesity due to excess calories Obesity (BMI 30-39.9) Diabetic polyneuropathy associated with type 2 diabetes mellitus Diabetes type 2, controlled Sebaceous gland hyperplasia of vulva Vulvar abscess Insomnia Stroke Acid reflux Asthma Depression Migraine Obesity, morbid HTN (hypertension) Surgical History Hx of craniotomy Hx of abdominoplasty History of carpal tunnel surgery Hx of adenoidectomy Hx of left hemicolectomy History of surgical removal of pilonidal cyst Hx of section Family History Father Family history of stroke Family hx of hypertension Mother Family hx of hypertension History of hyperthyroidism Hx of diabetes mellitus Hx pulmonary embolism Social History Household Members: None Patient Tobacco Use Status: Never used Tobacco service: No Current occupational status: unemployed Female Reproductive History Menstrual Age of Menarche: 15 Review of Systems Const Denies fatigue, Denies weight gain and Reports weight loss Eyes Denies blurry vision ENT Denies sore throat Card Denies chest pain and Denies palpitations Resp Denies chest congestion, Reports cough and Reports wheezing GI Denies constipation and Denies diarrhea Denies urinary frequency and Denies dysuria Musc Denies muscle cramps, Denies muscle weakness, Denies numbness and Denies tingling Skin/Breast Reports rash Neuro Denies burning sensations, Denies numbness, Denies tingling and Denies paresthesias Psych Denies depression Endo Denies fatigue, Denies polydipsia, Denies polyuria and Denies palpitations Donovan/Lymph Denies easy bruising Aller/Immun Reports wheezing Physical Exam Vital Signs: Last Vital Signs Pulse 89 02/14/24 11:43 BP 128/70 02/14/24 11:43 Pulse Ox 95 02/14/24 11:43 Oxygen Delivery Method Room Air 02/14/24 11:43 BMI result Body Mass Index 37.6 Const General: no acute distress and alert HEENT Head: Yes normocephalic and Yes atraumatic Eyes Sclerae: sclerae normal EOM: EOMs intact bilaterally Neck Neck: Yes no lymphadenopathy, Yes trachea midline and Yes no JVD Thyroid: Thyroid normal Chest Chest palpation & inspection: normal inspection of the chest Resp Effort & Inspection: normal respiratory effort and prolonged expiratory phase Auscultation: no wheezes and diminished lung sounds Cardio Rate: regular rate Rhythm: regular rhythm Heart sounds: S1 normal heart sound present and S2 normal heart sound present Peripheral pulses: Peripheral pulses 2+ throughout GI Inspection: Yes normal to inspection and No distended Auscultation: normal bowel sounds Skin Other: No acanthosis nigricans or diabetic dermopathy Neuro Deep tendon reflexes (DTR's): Rt Biceps (C5, C6): 2+, Left biceps reflex intensity grade: 2+, Right patellar reflex intensity grade: 2+ and Left patellar reflex intensity grade: 2+ Extrem Other: General: Yes normal gait, No clubbing, No cyanosis and No edema Psych Affect: normal affect Attitude: cooperative Assessment & Plan Assessment & Plan (1) Asthma: Code(s): J45.909 - Unspecified asthma, uncomplicated Category: Medical Qualifiers: Asthma complication type: uncomplicated Asthma persistence: persistent Asthma severity: severe Qualified Code(s): J45.50 - Severe persistent asthma, uncomplicated (2) Acid reflux: Code(s): K21.9 - Gastro-esophageal reflux disease without esophagitis Category: Medical Qualifiers: Esophagitis presence: without esophagitis Qualified Code(s): K21.9 - Gastro-esophageal reflux disease without esophagitis (3) Eczema: Code(s): L30.9 - Dermatitis, unspecified Category: Medical Qualifiers: Eczema type: unspecified Qualified Code(s): L30.9 - Dermatitis, unspecified (4) Elevated liver enzymes: Code(s): R74.8 - Abnormal levels of other serum enzymes Category: Medical Plan Breztri BID stopped Dupixent due side effects consider starting Fasenra GI referral stop Daliresp ALEJANDRA as needed Continue Singulair reflux diet F/U 4-6 months Orders: Referrals Gastroenterology Referral R74.8 - Abnormal levels of other serum enzymes Medications: Discontinued roflumilast (Daliresp) Discontinued Reason: Doctor's Order 250 mcg PO DAILY 30 days 30 tabs 11RF J44.9 - Chronic obstructive pulmonary disease, unspecified Coding Level of Care Code Est Pt Level 4 (48719) Diagnoses Severe persistent asthma without complication J45.50 Asthma complication type: uncomplicated Asthma persistence: persistent Asthma severity: severe Gastroesophageal reflux disease without esophagitis K21.9 Esophagitis presence: without esophagitis Eczema, unspecified type L30.9 Eczema type: unspecified Elevated liver enzymes R74.8 Time Spent (min) 17
[2024-02-14 11:43] VITALS: BP 128/70; PULSE 89; O2SAT 95; BMI 37.6
== END 2024-02-14 12:04 | disposition home or self-care (01) ==
PROVIDERS: PCP Family Medicine; Visit Provider Hospitalist
DX: J45.50 Severe persistent asthma, uncomplicated (principal); K21.9 Gastro-esophageal reflux disease without esophagitis; L30.9 Dermatitis, unspecified; R74.8 Abnormal levels of other serum enzymes
CPT/HCPCS: 99214

== ENCOUNTER → 2024-02-14 11:38 | Outpatient (BNVA) | payer OTHER, SELFPAY | PROVIDERS: PCP Family Medicine; Visit Provider Hospitalist | DX: J45.50 Severe persistent asthma, uncomplicated (principal); K21.9 Gastro-esophageal reflux disease without esophagitis; L30.9 Dermatitis, unspecified; R74.8 Abnormal levels of other serum enzymes | CPT/HCPCS: 99212 ==

== ENCOUNTER 2024-02-29 08:56 | Outpatient (REF) | payer OTHER, SELFPAY ==
--- NOTE | ~2024-02-29 | US_ITS ---
EXAMINATION: US ABDOMEN COMPLETE CLINICAL INFORMATION: Transaminitis. COMPARISON: Ultrasound abdomen 09/25/2021 and 06/23/2017. MR MRCP 09/25/2021. CT abdomen and pelvis 09/25/2021. TECHNIQUE: Real-time imaging of the abdominal viscera. Technically limited study secondary to bowel gas. FINDINGS: PANCREAS: Largely obscured by overlapping bowel gas. ABDOMINAL AORTA: The proximal and distal segments are normal in caliber. The mid segment is obscured by overlapping bowel gas. INFERIOR VENA CAVA: Visualized portions are normal. LIVER: The liver is upper normal in size, with a longitudinal span of 16.9 cm. The liver contour is normal. There is diffuse increased liver parenchymal echogenicity. No focal hepatic lesion. There is no intrahepatic biliary duct dilatation seen. GALLBLADDER: Surgically absent. COMMON BILE DUCT: Normal in caliber measuring 0.5 cm in diameter. RIGHT KIDNEY: At the lower pole, an 8 mm benign, simple cyst is seen, which requires no imaging follow-up. No hydronephrosis or renal calculi. The kidney measures 11.4 cm in maximum dimension. LEFT KIDNEY: Normal. No hydronephrosis. No renal calculi or focal parenchymal lesions. The kidney measures 11.5 cm in maximum dimension. SPLEEN: Imaging limited. The spleen measures 10.2 cm in maximum dimension. FREE FLUID: None. US/US abdomen complete IMPRESSION: 1. There is generalized increase in hepatic echotexture, consistent with fatty infiltration or hepatocellular disease. Please correlate clinically. No focal hepatic mass or intrahepatic biliary dilatation is seen. 2. The gallbladder is surgically absent. 3. Technically limited ultrasound examination, in particular of the pancreas, abdominal great vessels and spleen. Electronically signed by: Babatunde Anderson MD 03/03/2024 10:19 PM [facility]
== END 2024-02-29 08:57 | disposition home or self-care (01) ==
LOC: HO.US 08:56
PROVIDERS: PCP Family Medicine; Visit Provider Family Medicine
DX: R74.01 Elevation of levels of liver transaminase levels (principal)
CPT/HCPCS: 76700

== ENCOUNTER → 2024-04-05 12:45 | Outpatient (BNV) | payer OTHER, SELFPAY | PROVIDERS: PCP Family Medicine; Visit Provider Internal Medicine | DX: Z12.31 Encounter for screening mammogram for malignant neoplasm of breast (principal) | CPT/HCPCS: 77063; 77067 ==

== ENCOUNTER 2024-04-05 12:53 | Outpatient (REF) | payer OTHER, SELFPAY | END 2024-04-05 12:54 | disposition home or self-care (01) | LOC: HO.MAMMO 12:53 | PROVIDERS: PCP Family Medicine; Visit Provider Family Medicine | DX: Z12.31 Encounter for screening mammogram for malignant neoplasm of breast (principal) | CPT/HCPCS: 77063; 77067 ==

== ENCOUNTER 2024-06-12 11:39 | Outpatient (AMB) | payer OTHER, SELFPAY ==
[2024-06-12 11:42] VITALS: BP 142/86; PULSE 84; O2SAT 99; BMI 36.3
--- NOTE | 2024-06-12 11:42 | MHC.OFFVIS ---
Vital Signs 06/12/24 11:42 Height 5 ft 4 in Weight 211 lb 10.3 oz BMI 36.3 BP 142/86 H Blood Pressure Location Rt brachial Position Sitting Pulse 84 Pulse Source Pulse Oximeter Pulse Oximetry (%) 99 Oxygen Delivery Method Room Air Intake Visit Reasons: Asthma Allergies amoxicillin [AMOXICILLIN] Allergy (Unknown, Verified 02/14/24 11:46) UNKNOWN, anaphylaxis Iodinated Contrast Media [IODINATED CONTRAST MEDIA] Allergy (Unknown, Verified 02/14/24 11:46) ANAPHYLAXIS morphine [MORPHINE] Allergy (Unknown, Verified 02/14/24 11:46) FEELS LIKE HER THROAT CLOSES AND SHE GETS SHORT OF BREATH, headache Penicillins [PENICILLINS] Allergy (Unknown, Verified 02/14/24 11:46) UNKNOWN beta-blockers (beta-adrenergic Allergy (Unknown, Uncoded 02/14/24 11:46) difficulty breathing IV cotrast dye Allergy (Unknown, Uncoded 02/14/24 11:46) Anaphylaxis HPI Comments Details: The patient is a 58-year-old woman with lifelong asthma. She has had pretty significant asthma for many years. She was previously evaluated at [facility]. There she was placed on multiple courses of prednisone in addition to placing her on inhaled steroids. At some point her condition improved. She was on allergy medications as well. Ultimately her associate professor of library media left then she was lost to follow-up. She ran out of her inhalers and she started becoming more symptomatic. She has been struggling with her breathing. Recently she was started on QVAR and she has been feeling a little better although she still continues to have daytime daily and nighttime symptoms. She has not had allergy testing in a while. She did have blood work in the systems from October 2021 and also previous years. She has had significant eosinophilia every time she has blood work done. That 1 time she did not have eosinophilia was when she was on systemic steroids. Based on her significant asthma she may benefit from biologic therapy. Will maximize her respiratory therapy to see if she can be stabilize. The patient will come back after her breathing studies and we will assess her response to inhaler therapy. The 05/13/2022 the patient is here for a pulmonary follow-up visit. Overall she is doing well from a respiratory status. She continues with the QVAR. She does not use her rescue inhaler more than twice a week. Overall her asthma has been relatively well controlled. She denies needing prednisone or any recent exacerbations. We did review her blood work. 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 Her allergies also demonstrates significant environmental allergies specially in the springtime she probably have increased symptoms. The patient is aware that if her symptoms improve we can always maximize her respiratory therapy. Otherwise we need to consider biologic therapies to improve her allergic reactions the patient also is complaining of some discomfort primarily in the upper abdominal quadrants. The 10 to worsen when she takes a deep breath in. Back in September she was admitted to the hospital significant about tightest after medication cost issues. But, she has been off the medicine and she has not had any evidence of any jaundice like she had then. Her respiratory status is stable in her lungs sound well without any crackles or wheezing. I will have her undergo a chest x-ray and blood work to make sure that there isn't anything going on in the lung mendez. Most likely this is more an abdominal issue with significant abdominal bloating and potential residual inflammation. 02/22/2023 the patient is here for a pulmonary follow-up visit. The patient continues to struggle with her asthma. Having chest tightness and also has been struggling with her eczema. Significant pleuritic and uncomfortable. She did follow-up with Dermatology and did did prescribe her Dupixent. She has not been able to started since she has not been able to receive any education how to use it. Explained to the patient that the Dupixent will also help her asthma. We were able to set her up with a nursing visit this week in order for her to be able to start her loading dose and then after that she can continue with her maintenance injections every 2 weeks. She continues on the Anoro and also on the QVAR. I am hopeful that when she starts Dupixent she may be able to deescalate some of the respiratory medications. We will have to 1st start the Dupixent and then assess her response. She is going to monitor closely for any adverse effects including conjunctivitis. 10/09/2023 the patient is here for pulmonary follow-up visit. The patient is having increasing asthma symptoms. Significant wheezing or coughing. Also complains of nasal congestion. She did try the Dupixent injection. However, she developed the rash which was pretty significant felt to be worsening eczema. Therefore she stopped it. She continues on the QVAR. She continues use her rescue inhaler multiple times a day. Her asthma is not controlled at this time. Likely worsened with the he humidity that seems to be little bit more apparently the valley. We are going to go ahead and maximize her respiratory therapy switching her over to Breztri. she had tried Anoro in the past him did not do well with the powder either. Her last chest x-ray was done back in 03/13/2023 demonstrating no acute disease. No additional imaging studies warranted at this time. The patient will continue with current respiratory therapy. If she does not respond to the therapy she can always call so we can further evaluate. 02/14/2024 the patient is here for a pulmonary follow-up visit. The patient overall is doing better. She started the Breztri inhaler and it has been affecting beneficial. Although she still continues have a wheeze. She is using Singulair and also using Zyrtec. She does have underlying allergies. She already tried and failed Dupixent. She did have blood work and demonstrating an elevated eosinophil level. Therefore we could treat her with Fasenra. Although she recently was in the hospital with hepatitis it appears to be autoimmune with elevated anti smooth muscle antibody. I will refer her back to GI she should have this further evaluated. In the meantime the patient also suffers from arthralgias. She may have a component the mixed connective tissue disorder. She may benefit from a Rheumatology evaluation. She should follow-up with her primary care doctor regarding that. She is going to have blood work done with her primary care in the rechecking all her organ functions. If her kidney function liver functions are stable and she is still having hard time with the breathing she will call our office in order to start her on Fasenra. 06/12/2024 the patient is here for a pulmonary follow-up visit. She is still having hard time with breathing. She continues on the Breztri inhaler. Although is helpful she is continues to have persistent wheezing. She does have a nebulizer and she should be using at least twice a day in the meantime. She does have history of diabetes in therefore trying to avoid steroids. Will have her get blood work. Her eosinophils have been elevated consistent with eosinophilic asthma and severe persistent degree. Therefore she is agreeable to starting Fasenra. I do believe send will be very effective. Unfortunately she had a bad reaction to Dupixent. But I reassured her that she should do well with the Fasenra. Will go ahead and request the Fasenra for her. If she has any worsening symptoms and she can start the prednisone. I am hopeful though that with the nebulizer treatments that she can stay away from the prednisone. [facility] Medical History Eczema Chest pain Asthma Iron deficiency anemia Fibromyalgia Obesity due to excess calories Obesity (BMI 30-39.9) Diabetic polyneuropathy associated with type 2 diabetes mellitus Diabetes type 2, controlled Sebaceous gland hyperplasia of vulva Vulvar abscess Insomnia Stroke Acid reflux Asthma Depression Migraine Obesity, morbid HTN (hypertension) Surgical History Hx of craniotomy Hx of abdominoplasty History of carpal tunnel surgery Hx of adenoidectomy Hx of left hemicolectomy History of surgical removal of pilonidal cyst Hx of section Family History Father Family history of stroke Family hx of hypertension Mother Family hx of hypertension History of hyperthyroidism Hx of diabetes mellitus Hx pulmonary embolism Social History Household Members: None Patient Tobacco Use Status: Never used Tobacco service: No Current occupational status: unemployed Female Reproductive History Menstrual Age of Menarche: 15 Review of Systems Const Denies fatigue, Denies weight gain and Reports weight loss Eyes Denies blurry vision ENT Denies sore throat Card Denies chest pain and Denies palpitations Resp Denies chest congestion, Reports cough and Reports wheezing GI Denies constipation and Denies diarrhea Denies urinary frequency and Denies dysuria Musc Denies muscle cramps, Denies muscle weakness, Denies numbness and Denies tingling Skin/Breast Reports rash Neuro Denies burning sensations, Denies numbness, Denies tingling and Denies paresthesias Psych Denies depression Endo Denies fatigue, Denies polydipsia, Denies polyuria and Denies palpitations Donovan/Lymph Denies easy bruising Aller/Immun Reports wheezing Physical Exam Vital Signs: Last Vital Signs Pulse 84 06/12/24 11:42 BP 142/86 H 06/12/24 11:42 Pulse Ox 99 06/12/24 11:42 Oxygen Delivery Method Room Air 06/12/24 11:42 BMI result Body Mass Index 36.3 Const General: no acute distress and alert HEENT Head: Yes normocephalic and Yes atraumatic Eyes Sclerae: sclerae normal EOM: EOMs intact bilaterally Neck Neck: Yes no lymphadenopathy, Yes trachea midline and Yes no JVD Thyroid: Thyroid normal Chest Chest palpation & inspection: normal inspection of the chest Resp Effort & Inspection: normal respiratory effort and prolonged expiratory phase Auscultation: wheezes and diminished lung sounds Cardio Rate: regular rate Rhythm: regular rhythm Heart sounds: S1 normal heart sound present and S2 normal heart sound present Peripheral pulses: Peripheral pulses 2+ throughout GI Inspection: Yes normal to inspection and No distended Auscultation: normal bowel sounds Skin Other: No acanthosis nigricans or diabetic dermopathy Neuro Deep tendon reflexes (DTR's): Rt Biceps (C5, C6): 2+, Left biceps reflex intensity grade: 2+, Right patellar reflex intensity grade: 2+ and Left patellar reflex intensity grade: 2+ Extrem Other: General: Yes normal gait, No clubbing, No cyanosis and No edema Psych Affect: normal affect Attitude: cooperative Assessment & Plan Assessment & Plan (1) Asthma: Code(s): J45.909 - Unspecified asthma, uncomplicated Category: Medical Qualifiers: Asthma complication type: uncomplicated Asthma persistence: persistent Asthma severity: severe Qualified Code(s): J45.50 - Severe persistent asthma, uncomplicated (2) Acid reflux: Code(s): K21.9 - Gastro-esophageal reflux disease without esophagitis Category: Medical Qualifiers: Esophagitis presence: without esophagitis Qualified Code(s): K21.9 - Gastro-esophageal reflux disease without esophagitis (3) Eczema: Code(s): L30.9 - Dermatitis, unspecified Category: Medical Qualifiers: Eczema type: unspecified Qualified Code(s): L30.9 - Dermatitis, unspecified (4) Elevated liver enzymes: Code(s): R74.8 - Abnormal levels of other serum enzymes Category: Medical Plan Breztri BID stopped Dupixent due side effects starting Fasenra GI referral pending ALEJANDRA as needed Continue Singulair reflux diet bloodwork F/U 4-6 months Orders: Orders Erythrocyte Sedimentation Rate Today J45.50 - Severe persistent asthma, uncomplicated, L30.9 - Dermatitis, unspecified Complete Blood Count Auto Diff Today J45.50 - Severe persistent asthma, uncomplicated, L30.9 - Dermatitis, unspecified Immunoglobulin E Today J45.50 - Severe persistent asthma, uncomplicated, L30.9 - Dermatitis, unspecified Medications: New prednisone PO daily; Take 2 tabs daily x 5 days, then 1 tablet daily x 5 days 15 tabs 0RF 10 days Refilled albuterol sulfate 2.5 mg (3 mL) inhalation Q6H PRN 180 mL 11RF shortness of breath or wheezing 30 days Coding Level of Care Code Est Pt Level 4 (26308) Diagnoses Severe persistent asthma without complication J45.50 Asthma complication type: uncomplicated Asthma persistence: persistent Asthma severity: severe Gastroesophageal reflux disease without esophagitis K21.9 Esophagitis presence: without esophagitis Eczema, unspecified type L30.9 Eczema type: unspecified Elevated liver enzymes R74.8 Time Spent (min) 16
--- OUTSIDE RECORDS SUMMARY | 2024-06-12 12:16 | XMS_ITS | Encounter Summary ---
Author Organization [employer] Address [address] [facility] [address] [place] [address] Care Team Providers Care Software Applications Designer Name Role Phone Nikki James MD Primary Care Provider [phone] Mary Rain PharmD Unavailable Gerson Briggs Unavailable [phone] Babatunde Cornejo DO Unavailable [phone] Delaney Cantu Unavailable Reason for Referral * Consultation (STAT) - Pending Review Specialty Diagnoses / Procedures Referred By Conteliana t Referred To Contact Obstetrics and Gynecology Diagnoses Labial cyst Jenna Walter MD [address] [place] [address] Phone: tel: fax: Referral ID Status Reason Start Date Expiration Date Visits Requested Visits Authorized [id number] Pending Review Specialty Services Required 06/11/2024 06/11/2025 1 1 Encounter Details Date Type Department Care Team (Late st Contact Info) Description 06/11/2024 Orders Only [facility] [address] [place] [id number] Jenna Walter MD [address] [place] [address] Labial cyst (Primary Dx) Social History Tobacco Use Types Packs/Day Years Used Date Smoking Tobacco: Never Passive Smoke Exposure: Never Smokeless Tobacco: Never Alcohol Use Standard Drinks/Week Comments Never 0 (1 standard drink = 0.6 oz pur e alcohol) Alcohol Answer Date Recorded Frequency of Alcohol Consumption Not on file 02/12/2024 Average Number of Drinks Not on file 024 Frequency of Binge Drinking Not on file 01/23 Score 0 02/12/2024 Depression Answer Date Recorded Patient Health Questionnaire-9 Score 12 12/28/2023 Patient Health Questionnaire-9 Score 12 12/28/2023 Last PHQ-9: Questionnaire Data Not on file 0 12/28/2023 Housing Stability Answer Date Recorded What is your housing situation today? I have true christianson 02/15/[address] you li ve. Do you have problems with any of the following? None of the above 02/15/2023 Food Insecurity Answer Date Recorded Within the past 12 months, y ou worried that your food would run out before you got money to buy more: Never True 02/15/2023 Within the past 12 months,th e food you bought just didn't last and you didn't have enough money to get more: Never True Transportation Answer Date Recorded In the past 12 months, has l ack of transportation kept you from medical appts, meetings, work or from getting things needed for daily living? No 02/15/2023 Utilities Answer Date Recorded In the past 12 months, has t he electric, gas, oil or water company threatened to shut off services in your home? No 02/15/2023 Depression Answer Date Recorded Patient Health Questionnaire-2 Score 2 12/28/2023 Comments Unknown Sex and Gender Information Value Date Recorded Sex Assigned at Female 02/21/2022 10:15 AM EDT Legal Sex Female 10:15 AM EDT Gender Identity Female 02/21/2022 10:15 AM EDT Sexual Orientation Straight 02/21/2022 10 :15 AM EDT documented as of this encounter Plan of Treatment Scheduled Referrals Name Type Priority Associated Diagnoses Order Schedule Referral to Obstetrics / Gynecology Outpatient Referral STAT Labial cyst Expected: 06/11/2024 (Approximate), Expires: 06/11/2025 documented as of this encounter Goals Goal Patient Goal Type Associated Problems Recent Progress Patient-Stated? Author Blood Pressure < 140/90 Blood Pressure 136/72(2023 11:04 AM EDT) No Mary Forbes PharmD Hemoglobin A1c < 7 Result Component 7.7( 4 11:33 AM EDT) No Mary Forbes PharmD documented as of this encounter Visit Diagnoses Diagnosis Labial cyst- Primary Other specified noninflammatory disorder of vulva and perineum documented in this encounter Additional Health Concerns Assessment Noted Time PHQ-9 Depression Total Score: 12 024 10:49 AM EDT documented as of this encounter Care Teams Software Applications Designer Relationship Specialty Start Date End Date Nikki James MD [address] [place] [address] PCP - General Family Medicine 04/24/18 Mary Rain, Kisha [address] [place] [phone] Pharmacist Internal Medicine 01/26/23 Gerson Briggs [address] [place] [phone] Pulmonary Disease 04/08/24 Babatunde Cornejo DO [address] [place] [address] Endocrinology 04/08/24 Delaney Cantu [address] [address] Dermatology 04/08/24 Dr. Bravo [facility] [address] [place] [address] Orthopaedic Surgery 05/15/24 documented as of this encounter
--- OUTSIDE RECORDS SUMMARY | 2024-06-12 12:16 | XMS_ITS | Encounter Summary ---
Author Organization [employer] Address [address] [facility] [address] [place] [address] Care Team Providers Care Barn Boss Name Role Phone Nikki James MD Primary Care Provider [phone] Mary Rain PharmD Unavailable Gerson Briggs Unavailable [phone] Babatunde Cornejo DO Unavailable [phone] Delaney Cantu Unavailable Encounter Details Date Type Department Care Team (Late st Contact Info) Description 10/21/2023 Orders Only [facility] [address] [place], [place] [phone] Nikki James MD [address] [place], [place] [id number] Social History Tobacco Use Types Packs/Day Years Used Date Smoking Tobacco: Never Passive Smoke Exposure: Never Smokeless Tobacco: Never Depression Answer Date Recorded Patient Health Questionnaire-9 Score 10 01/18/2023 Housing Stability Answer Date Recorded What is [...] Answer Date Recorded Patient Health Questionnaire-2 Score 4 01/18/2023 Comments Unknown Sex and Gender Information Value Date Recorded Sex Assigned at Female 02/21/2022 10:15 AM EDT Legal Sex Female 10:15 AM EDT Gender Identity Female 02/21/2022 10:15 AM EDT Sexual Orientation Straight 02/21/2022 10 :15 AM EDT documented as of this encounter Plan of Treatment Not on file documented as of this encounter Goals Goal Patient Goal Type Associated Problems Recent Progress Patient-Stated? Author Blood Pressure < 140/90 Blood Pressure 136/72(2023 11:04 AM EDT) No Mary Forbes, PharmD Hemoglobin A1c < 7 Result Component 7.7( 11:33 AM EDT) No Mary Forbes, PharmD documented as of this encounter Visit Diagnoses Not on filedocumented in this encounter Additional Health Concerns Assessment Noted Time PHQ-9 Depression Total Score: 10 023 11:39 AM EDT documented as of this encounter Care Teams Barn Boss Relationship Specialty Start Date End Date Nikki James MD [address] [place] [address] PCP - General Family Medicine 04/24/18 Mary Rain, PharmD [address] [place] [phone] Pharmacist Internal Medicine 01/26/23 Gerson Briggs [address] [place] [address] Pulmonary Disease 04/08/24 Babatunde Cornejo DO [address] [place] [address] Endocrinology 04/08/24 Beverlyjanette Delaney [address] [facility] [address] [place] [address] Dermatology 04/08/24 Dr. Bravo [facility] [address] [place] [address] Orthopaedic Surgery 05/15/24 documented as of this encounter
--- OUTSIDE RECORDS SUMMARY | 2024-06-12 12:16 | XMS_ITS | Clinical Summary ---
Author Organization [employer] Address [address] [facility] [address] [place] [address] Care Team Providers Care Legal Transcriptionist Name Role Phone Nikki James MD Primary Care Provider [phone] Mary Rain PharmD Unavailable Gerson Briggs Unavailable [phone] Babatunde Cornejo DO Unavailable [phone] Delaney Cantu Unavailable Allergies Active Allergy Reactions Criticality Noted Date Comments Amoxicillin Anaphylaxis High 04/21/2022 Beta Adrenergic Blockers Shortness of breath High Iodinated Contrast Media 04/21/2022 Morphine Headache 04/21/2022 Penicillins Anaphylaxis High 04/21/2022 Medications * This document contains information received from the source organization and may not represent a complete record from that organization. hydrOXYzine HCl (Atarax) 25 MG tabletIndication s:Dermatitis, unspecified TAKE 1 TABLET(25 MG) BY MOUTH AT BEDTIME NEEDED FOR ITCHING 60 tablet 1 024 Active Turmeric Curcumin 500 MG capsuleIndicatio ns:Vitamin deficiency Take 1 capsule by mouth in the morning. 024 Active Dupixent 300 MG/2ML injectionIndicat ions:Moderate persistent asthma without complication 023 Active lidocaine (Lidoderm) 5 % patchIndications :Chronic midline low back pain, unspecified whether sciatica present UNWRAP AND APPLY 1 PATCH TOPICALLY TO MOST PAINFUL AREA DAILY FOR UP TO 12 HOURS 023 Active cyclobenzaprine (Flexeril) 5 MG tabletIndication s:Chronic midline low back pain, unspecified whether sciatica present Take 5 mg by mouth if needed in the morning, at noon, and at bedtime for muscle spasms. Active cyancobalamine (Vitamin B-12) 250 MCG tabletIndication s:Vitamin deficiency Take 250 mcg by mouth in the morning. Active ciclesonide (Alvesco) 160 MCG/ACT inhalerIndicatio ns:Moderate persistent asthma without complication Inhale. 021 Active DULoxetine (Cymbalta) [address] capsuleIndicatio ns:Depression, recurrent (CMS/HCC) Take 30 mg by mouth Once per day. Active triamcinolone (Kenalog) 0.1 % creamIndications :Dermatitis Active Anoro Ellipta 62.5-25 MCG/ACT aerosol powderIndication s:Moderate persistent asthma without complication INHALE 1 PUFF BY MOUTH DAILY Active hydroCHLOROthiaz pablo (HYDRODiuril) 25 MG tabletIndication s:Primary hypertension Take 1 tablet (25 mg) by mouth Once per day. 90 tablet 1 024 Active lisinopril 20 MG tabletIndication s:Primary hypertension Take 1 tablet (20 mg) by mouth Once per day. 90 tablet 3 024 Active empagliflozin (Jardiance) 10 MGIndications:Ty pe 2 diabetes mellitus without complication, without long-term current use of insulin ([facility]) Take 1 tablet by mouth once daily 30 tablet 3 024 Active atorvastatin (Lipitor) 40 MG tabletIndication s:Type 2 diabetes mellitus without complication, without long-term current use of insulin ([facility]) Take 1 tablet (40 mg) by mouth Once per day. 90 tablet 3 024 Active montelukast (Singulair) 10 MG tabletIndication s:Moderate persistent asthma without complication Take 1 tablet (10 mg) by mouth at bedtime. 90 tablet 3 024 Active levocetirizine (Xyzal) 5 MG tabletIndication s:Seasonal allergies Take 1 tablet (5 mg) by mouth Once per day. 30 tablet 024 Active cholecalciferol (Vitamin D-3) 25 MCG (1000 UT) capsuleIndicatio ns:Vitamin D deficiency Take 1 capsule (25 mcg) by mouth Once per day. 60 capsule 2 024 Active Continuous Glucose Sensor (FreeStyle Mariusz 2 Sensor) miscIndications: Type 2 diabetes mellitus without complication, without long-term current use of insulin ([facility]) Use as directed to monitor glucose ever 8 hours. Replace sensor every 14 days. 2 each 024 Active glucose blood (FreeStyle Precision Reza Test) test stripIndications :Type 2 diabetes mellitus without complication, without long-term current use of insulin ([facility]) Test blood sugar q 8 hours 100 each 12 024 Active Aspirin Low Dose 81 MG EC tabletIndication s:Abnormal echocardiogram TAKE 1 TABLET BY MOUTH EVERY DAY 90 tablet 3 024 Active semaglutide (Ozempic, 0.25 or 0.5 MG/DOSE,) 2 MG/1.5ML solution pen-injectorIndi cations:Type 2 Diabetes Mellitus Inject 0.25 mg subcutaneously q week x 4 weeks, then increased to 0.5mg subcutaneously q week after 3 mL 3 024 Active Lancets (OneTouch Delica Plus [id number]) miscIndications: Type 2 diabetes mellitus without complication, without long-term current use of insulin ([facility]) USE TO TEST BLOOD SUGAR ONCE A DAY 100 each 024 Active ROFLUMILAST POIndications:Mo derate persistent asthma without complication Take by mouth. Ac tive Budeson-Glycopyr rol-Formoterol (Breztri Aerosphere) 160-9-4.8 MCG/ACT aerosolIndicatio ns:Moderate persistent asthma without complication Inhale. Active pantoprazole (ProtoNix) 20 MG EC tabletIndication s:Pain TAKE 1 TABLET BY MOUTH EVERY DAY 90 tablet 1 025 Active pantoprazole (ProtoNix) 20 MG EC tabletIndication s:Pain TAKE 1 TABLET BY MOUTH EVERY DAY 90 tablet 1 023 2024 Discontinued(R eorder (will not trigger notification to Pharmacy)) Active Problems Patient Care Coordination No te Formatting of this note migh t be different from the original. Enrolled in [facility] clinic with Mary Rain, ElishaD, [facility] Prosthodontist: Devi Supervisor [employer] Agency: [employer] Problem Noted Date Diagnosed Date Right knee pain 05/15/2024 Overview (05/15/2024): -s/p right knee LMT 05/03/[address] 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 -given BMI >30kg/m2 or >27kg/m2 with one or more weight related comorbidities pt is a candidate for glucagon-like peptide-1s (GLP-1) to assist with weight loss and diabetes management -to be used in combination with reduced calorie diet and increased physical activity -For Wegovy (semaglutide) Start 0.25mg subcutaneously qweek 1-4 weeks, increase to 0.5mg subcutaneously qweek for weeks 5-8, increase to 1mg subcutaneously qweek for weeks 9-1, Increase to 1.7 mg subcutaneously q week weeks 13-16, increase tp 2.4mg subcutaneously q week If dose is not tolerated consider delaying dose increase for 4 weeks. Treatment doses considered to be 1.7 or 2.4 mg long term. -f/u in 2 months. Assessment & Plan (02/12/2024 10:57 AM EDT): -repeating A1c and ordered additional lipid panel, HFP, BMP and albumin 02/12/24. -given BMI >30kg/m2 or >27kg/m2 with one or more weight related comorbidities pt is a candidate for glucagon-like peptide-1s (GLP-1) to assist with weight loss and diabetes management -to be used in combination with reduced calorie diet and increased physical activity -For Wegovy (semaglutide) Start 0.25mg subcutaneously qweek 1-4 weeks, increase to 0.5mg subcutaneously qweek for weeks 5-8, increase to 1mg subcutaneously qweek for weeks 9-1, Increase to 1.7 mg subcutaneously q week weeks 13-16, increase tp 2.4mg subcutaneously q week If dose is not tolerated consider delaying dose increase for 4 weeks. Treatment doses considered to be 1.7 or 2.4 mg long term. -f/u in 2 months. Dermatitis 12/28/2023 Thyroid pain 07/17/2023 Overview (10/21/2023): -Thyroid US 07/24/23 No suspicious thyroid nodule identified. Lab Results Component Value Date TSH 1.67 07/24/2023 Assessment & Plan (10/21/2023 9:13 AM EDT): -exam was normal, -Thyroid US 07/24/23 No suspicious thyroid nodule identified. Lab Results Component Value Date TSH 1.67 07/24/2023 Hx of subarachnoid hemorrhage 01/11/2023 Overview (01/11/2023): On February 21, 2010 patient had a spontaneous subarachnoid hemorrhage with extension into the ventricles. The etiology of her bleed is unknown despite extensive complete cerebral angiographic study including supraselective exams of both external carotid system at least three times. She was followed by [facility] and was last seen for her final visit Feb 2011. Her care was transferred to [facility] who she sees for her chronic headaches and last saw Dec 2014. Topamax is 50 bid. She is now on gabapentin 100mg bid. Assessment & Plan (12/28/2023 11:08 AM EDT): On February 21, 2010 patient had a spontaneous subarachnoid hemorrhage with extension into the ventricles. The etiology of her bleed is unknown despite extensive complete cerebral angiographic study including supraselective exams of both external carotid system at least three times. She was followed by [facility] and was last seen for her final visit Feb 2011. Her care was transferred to [facility] who she sees for her chronic headaches and last saw Dec 2014. Topamax is 50 bid. She is now on gabapentin 100mg bid. Assessment & Plan (01/11/2023 2:14 PM EDT): On February 21, 2010 patient had a spontaneous subarachnoid hemorrhage with extension into the ventricles. The etiology of her bleed is unknown despite extensive complete cerebral angiographic study including supraselective exams of both external carotid system at least three times. She was followed by [facility] and was last seen for her final visit Feb 2011. Her care was transferred to [facility] who she sees for her chronic headaches and last saw Dec 2014. Topamax is 50 bid. She is now on gabapentin 100mg bid. Other specified health status 01/11/2023 Overview (04/08/2024): -next physical exam due after 02/11/25 -followed by Dr. García Wei of [facility] -dental home is [facility] [place] -filed healthcare proxy on 07/17/2023 Assessment & Plan (02/12/2024 10:51 AM EDT): -next physical exam due after 02/11/25 -followed by Dr. García Wei of [facility] -dental home is [facility] [place] -Filed healthcare proxy on 07/17/2023 Assessment & Plan (07/17/2023 11:31 AM EDT): -next physical exam due after 01/19/2024 -eye care facilitated by Dr. Archibald -[facility] is [facility] [place] -Filed healthcare proxy on 07/17/2023 Assessment & Plan (01/18/2023 11:55 AM EDT): -next physical exam due after 01/19/2024 -eye care facilitated by Dr. 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 Lab Results Component Value Date TOTALBILIRUB 0.8 02/12/2024 AST 100 (H) 02/12/2024 ALT 109 (H) 02/12/2024 ALT 25 12/16/2021 ALP 90 02/12/2024 HEPCAB Nonreactive 08/13/2018 ANASCRE NEGATIVE 05/13/2022 ANATITER TNP 05/13/2022 Ultrasound: 03/03/24 1. There is generalized increase in hepatic echotexture, consistent with fatty infiltration or hepatocellular disease. Please correlate clinically. No focal hepatic mass or intrahepatic biliary dilatation is seen. -Labs for autoimmune hepatitis, hemochromatosis, alpha -1 antitrypsin deficiency and viral hepatitis unremarkable. 01/16/23 AST and ALT still elevated. -Plan: Avoid alcohol. Dietary modification, increase physical activity. 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 Lab Results Component Value Date TOTALBILIRUB 0.8 02/12/2024 AST 100 (H) 02/12/2024 ALT 109 (H) 02/12/2024 ALT 25 12/16/2021 ALP 90 02/12/2024 HEPCAB Nonreactive 08/13/2018 ANASCRE NEGATIVE 05/13/2022 ANATITER TNP 05/13/2022 Ultrasound: ordered 02/13/24 Labs for autoimmune hepatitis, hemochromatosis, alpha -1 antitrypsin deficiency and viral hepatitis unremarkable. 01/16/23 AST and ALT still elevated. Plan: Avoid alcohol. Dietary modification, increase physical activity. -repeating HFP, BMP and albumin 02/12/24 with worsening liver function tests -referral to GI placed 02/13/24 Moderate persistent asthma without complication 12/14/2022 Overview (10/21/2023): Asthma not controlled. Significant eosinophilia chronically on labs. - Continue with pulmonology with Dr. Briggs, Seen 10/09/23 -start Breztri BID 10/09/23 -stopped Dupixent due side effects -ALEJANDRA as needed -Continue Singulair -reflux diet , F/U 6-8 months with pulmonology Assessment & Plan (12/28/2023 11:06 AM EDT): Asthma not controlled. Significant eosinophilia chronically on labs. - Continue with pulmonology with Dr. Briggs, Seen 10/09/23 -start Breztri BID 10/09/23 -stopped Dupixent due side effects -ALEJANDRA as needed -Continue Singulair -reflux diet , F/U 6-8 months with pulmonology Assessment & Plan (10/21/2023 9:16 AM EDT): Asthma not controlled - Continue with pulmonology Assessment & Plan (01/18/2023 12:13 PM EDT): Asthma not controlled - Continue with pulmonology -Continue albuterol and QVAR Backache 01/27/2014 Obesity due to excess calories 01/27/2014 Carpal tunnel syndrome 03/30/2012 Chronic sinusitis 03/30/2012 Depression, recurrent 03/30/2012 Overview (10/21/2023): Followed by therapist and psychiatrist. No suicidial or homacidial ideation. Assessment & Plan (02/12/2024 10:51 AM EDT): Followed by therapist and psychiatrist. No suicidial or homacidial ideation. Assessment & Plan (12/28/2023 11:08 AM EDT): Followed by therapist and psychiatrist. No suicidial or homacidial ideation. Assessment & Plan (10/21/2023 9:12 AM EDT): Followed by therapist and psychiatrist. No suicidial or homacidial ideation. DM w/o complication type II 03/30/2012 Overview (02/12/2024): Diabetes is controlled. Lab Results Component Value Date HGBA1C 7.8 (A) 12/28/2023 HGBA1C 7.3 (H) 01/16/2023 Lab Results Component Value Date CREATININE 0.78 01/16/2023 EGFR >60 01/16/2023 MICROALBCREU 4.5 01/16/2023 LDLCHOLCAL 86 01/16/2023 -Justus/Arb: lisinopril 20mg -Statin therapy: atorvastatin 40mg -Diabetic eye exam: Dr. Wei -Diabetic foot exam: 12/28/23 -Continue lifestyle modifications -Continue current medications -Interested in ozempic , referred to [facility] Program with our PharmD 06/2023, no showed or did not respond to > 3 consecutive phone calls so no longer on list -12/28/23 A1c is slightly worse than previous. Given continuous BG< to monitor sugars at home -F/u in 6 weeks. -repeating A1c and ordered additional lipid panel, HFP, BMP and albumin 02/12/24. -given BMI >30kg/m2 or >27kg/m2 with one or more weight related comorbidities pt is a candidate for glucagon-like peptide-1s (GLP-1) to assist with weight loss and diabetes management -to be used in combination with reduced calorie diet and increased physical activity -For Wegovy (semaglutide) Start 0.25mg subcutaneously qweek 1-4 weeks, increase to 0.5mg subcutaneously qweek for weeks 5-8, increase to 1mg subcutaneously qweek for weeks 9-1, Increase to 1.7 mg subcutaneously q week weeks 13-16, increase tp 2.4mg subcutaneously q week If dose is not tolerated consider delaying dose increase for 4 weeks. Treatment doses considered to be 1.7 or 2.4 mg long term. -follow-up in 2 months. Assessment & Plan (02/12/2024 10:58 AM EDT): Diabetes is controlled. Lab Results Component Value Date HGBA1C 7.8 (A) 12/28/2023 HGBA1C 7.3 (H) 01/16/2023 Lab Results Component Value Date CREATININE 0.78 01/16/2023 EGFR >60 01/16/2023 MICROALBCREU 4.5 01/16/2023 LDLCHOLCAL 86 01/16/2023 -Justus/Arb: lisinopril 20mg -Statin therapy: atorvastatin 40mg -Diabetic eye exam: Dr. Wei -Diabetic foot exam: 12/28/23 -Continue lifestyle modifications -Continue current medications -Interested in ozempic , referred to [facility] Therapy [facility]agment Program with our PharmD 06/2023, no showed or did not respond to > 3 consecutive phone calls so no longer on list -12/28/23 A1c is slightly worse than previous. Given continuous BG< to monitor sugars at home -F/u in 6 weeks. -repeating A1c and ordered additional lipid panel, HFP, BMP and albumin 02/12/24. -given BMI >30kg/m2 or >27kg/m2 with one or more weight related comorbidities pt is a candidate for glucagon-like peptide-1s (GLP-1) to assist with weight loss and diabetes management -to be used in combination with reduced calorie diet and increased physical activity -For Wegovy (semaglutide) Start 0.25mg subcutaneously qweek 1-4 weeks, increase to 0.5mg subcutaneously qweek for weeks 5-8, increase to 1mg subcutaneously qweek for weeks 9-1, Increase to 1.7 mg subcutaneously q week weeks 13-16, increase tp 2.4mg subcutaneously q week If dose is not tolerated consider delaying dose increase for 4 weeks. Treatment doses considered to be 1.7 or 2.4 mg long term. -follow-up in 2 months. Assessment & Plan (12/28/2023 11:13 AM EDT): Diabetes is controlled. Lab Results Component Value Date HGBA1C 7.8 (A) 12/28/2023 HGBA1C 7.3 (H) 01/16/2023 Lab Results Component Value Date CREATININE 0.78 01/16/2023 EGFR >60 01/16/2023 MICROALBCREU 4.5 01/16/2023 LDLCHOLCAL 86 01/16/2023 -Justus/Arb: lisinopril 20mg -Statin therapy: atorvastatin 40mg -Diabetic eye exam: Dr. Wei -Diabetic foot exam: 12/28/23 -Continue lifestyle modifications -Continue current medications -Interested in ozAirXpanders , referred to [facility] Therapy [facility] Program with our PharmD 06/2023, no showed or did not respond to > 3 consecutive phone calls so no longer on list -12/28/23 A1c is slightly worse than previous. Given continuous BG< to monitor sugars at home -F/u in 6 weeks. Assessment & Plan (10/21/2023 9:12 AM EDT): Diabetes is controlled. Lab Results Component Value Date HGBA1C 7.3 (H) 01/16/2023 Lab Results Component Value Date CREATININE 0.78 01/16/2023 EGFR >60 01/16/2023 MICROALBCREU 4.5 01/16/2023 LDLCHOLCAL 86 01/16/2023 -Justus/Arb: lisinopril 20mg -Statin therapy: atorvastatin 40mg -Diabetic eye exam: Dr. Wei -Diabetic foot exam: 01/18/2023 -Continue lifestyle modifications -Continue current medications -Interested in ozempic , referred to [facility] Program with our PharmD 06/2023, no showed or did not respond to > 3 consecutive phone calls so no longer on list Assessment & Plan (01/18/2023 12:11 PM EDT): Diabetes is controlled. -No results found for: HGBA1C -No results found for: POCA1C - Lab Results Component Value Date MICROALBUR 0.8 05/31/2021 CREATININE 0.85 05/31/2022 -Justus/Arb: lisinopril 20mg daily -Statin therapy: atorvastatin 40mg -Diabetic eye exam: Dr. Wei -Diabetic foot exam: 01/18/2023 -Continue lifestyle modifications -Continue current medications -Continue metform 500 daily -Continue jardiance 25 daily -Continue januvia 100 daily -Interested in ozempic will discuss with CDTM Chronic headache disorder 03/30/2012 Overview (12/28/2023): Pt with chronic headaches for several years. No fevers. No worsening with laying down or standing up. No vomiting. No changes in mental status/cognition. No LOC. No difficulty with language or swallowing. No weakness. She denies a history of recent head injury. Pt does have a history of a subarachnoid hemorrhage in 2009, but has had these headaches prior to 2009. She relates the headaches to stress. -Use to take Topirimate, but was having side effects, so pt recently stopped medication. -Has not tried any opiates or Bupropion. -Will refer to Neurology for further evaluation. 12/28/23 -Recommended trying to relieve stress as she feels headache occurring through relaxation techniques and self hypnosis. Assessment & Plan (12/28/2023 11:06 AM EDT): Pt with chronic headaches for several years. No fevers. No worsening with laying down or standing up. No vomiting. No changes in mental status/cognition. No LOC. No difficulty with language or swallowing. No weakness. She denies a history of recent head injury. Pt does have a history of a subarachnoid hemorrhage in 2009, but has had these headaches prior to 2009. She relates the headaches to stress. -Use to take Topirimate, but was having side effects, so pt recently stopped medication. -Has not tried any opiates or Bupropion. -Will refer to Neurology for further evaluation. 12/28/23 -Recommended trying to relieve stress as she feels headache occurring through relaxation techniques and self hypnosis. Hypertension 03/30/2012 Overview (01/11/2023): -Blood pressure is at goal -Continue lifestyle modifications -Continue current medications Assessment & Plan (02/12/2024 11:09 AM EDT): -Blood pressure is at goal -Continue lifestyle modifications -Continue current medications Assessment & Plan (12/28/2023 11:07 AM EDT): -Blood pressure is at goal -Continue lifestyle modifications -Continue current medications Assessment & Plan (07/17/2023 11:41 AM EDT): -Blood pressure is at goal -Continue lifestyle modifications -Continue current medications Assessment & Plan (01/11/2023 2:14 PM EDT): -Blood pressure is at goal -Continue lifestyle modifications -Continue current medications Resolved Problems Problem Noted Date Diagnosed Date Resolved Date Diabetes due to undrl condit ion w oth diabetic neuro comp 07/17/2023 10/21/2023 Epidermal cyst 01/11/2023 10/21/2023 Asthma 01/11/2023 01/11/2023 Atopic neurodermatitis 12/15/202210/20 Assessment & Plan (12/15/2022 10:17 AM EDT): Patient here for a sick visit, she has a diagnosis of Atopic dermatitis on the face and neck, under the care of Corporate Strategy Analyst Dr. Cantu. Last note available from Dr Cantu from October 26 2021, has an upcoming appointment 01/02/2023 On exam today she has lichinefication, scaling and hyperpigmentation around her nasolabial folds and chin, tiny are on her neck Pt has been using Hydrocortisone topical ointment twice a day x 2 weeks with 1 week break in between, using Vaseline as well. Case discussed at length with Mann LOPEZ who has being seeing patient. He recommended to: Continue Hydrocortisone and add Tacrolimus ointment BID. He was going to send the prescription to her Pharmacy and placed patient on a cancellation list. He also mentioned he might need to do a biopsy. On today's exam there is NO evidence of infection, NO discharge, no blisters, no pustules, Vital signs are stable. Pt agreeable with plan Follow up with PCP after she sees Dermatology I also instructed her to call us if symptoms worsen. 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 01/11/2023 Disuse syndrome 03/30/2012 01/11/2023 Dizziness 03/30/2012 10/21/2023 Ventricular hemorrhage 03/30/201201/11 Encounters Date Type Department Care Team Description 06/11/2024 Orders Only [facility] [address] [place] [address] [id number] Jenna Walter MD Labial cyst (Primary Dx) 06/06/2024 Telephone [facility] [address] [place] [address] [id number] Nikki James MD Nurse Triage 05/29/2024 Refill [facility] [address] [place] [address] Nikki James MD Pain 05/15/2024 Telephone [facility] [address] [place] [id number] Nikki James MD 05/06/2024 Telephone [facility] [address] [place] [address] Cierra Toussaint MA Durable Medical Equipment 05/06/2024 Telephone [facility] [address] [place] [address] Cierra Toussaint MA 05/02/2024 Telephone [facility] [address] [place] [address] Cierra Toussaint [place] Durable Medical Equipment 04/29/2024 Telephone [facility] [address] [place] [address] Nikki James MD 04/10/[address] [phone] Nikki James MD No Show 04/05/2024 Orders Only [facility] [address] [place] [id number] Nikki James MD from Last 3 Months Immunizations Name Administration Dates Next Due Hep A, Adult 09/22/2017 Hep B, adult 05/22/2006,09/20/2005,08/19/2005 Influenza Injectable Quadriv alant Preservative Free IIV4 MDCK 05/04/2021,03/16/2020 Influenza injectable quadriv alent IIV4 with preservative 01/25/2018,05/24/2017 Influenza injectable quadriv alent preservative free 01/18/2023,02/16/2022,07/08/2019,04/20 Influenza, IIV3, injectable 01/27/2014, 1,12/31/2009 Influenza, Split (incl. kervin fied surface antigen) 03/30/2012 Influenza, seasonal, injecta ble, preservative free 02/12/2024,02/07/2016 Influenza, trivalent, adjuvanted 02/07/2016 Pfizer Covid-19 Vaccine 12+ 02/12/2024, 1,11/17/2020 Pneumococcal Conjugate PCV 13 02/07/2016 Pneumococcal Polysaccharide PPSV23 06/20/2020,,01/27/2014 TD (adult), 2 Lf tetanus tox oid, preservative free, adsorbed 01/03/2000 Td (adult), 5 Lf tetanus tox oid, preservative free, adsorbed 02/15/2017 Tdap 10/14/2013 Zoster, Recombinant 10/22/2021,08/20/2021 Social History Tobacco Use Types Packs/Day Years Used Date Smoking Tobacco: Never Passive Smoke Exposure: Never Smokeless Tobacco: Never Tobacco Cessation:Counseling Given: Not Answered Alcohol Use Standard Drinks/Week Comments Never 0 [...] Orientation Straight 02/21/2022 10 :15 AM EDT Last Filed Vital Signs Vital Sign Reading Time Taken Comments Blood Pressure 136/72 02/12/2024 11:04 AM EDT Pulse 86 02/12/2024 10:40 AM EDT Temperature 36.2 ??C (97.1 ??F) 02/12/2024 10:40 AM E DT Respiratory Rate 18 02/12/2024 10:40 AM EDT Oxygen Saturation 97% 02/12/2024 10:40 AM EDT Inhaled Oxygen Concentration - - Weight 99.3 kg (219 lb) 02/12/2024 10:40 AM EDT Height 162.6 cm (5' 4 ) 02/12/2024 10:40 AM EDT Body Mass Index 37.59 02/12/2024 10:40 AM EDT Plan of Treatment Health Maintenance Due Date Last Done Comments CT Colonography 1966 FIT DNA/Cologuard 1966 FIT 1966 FOBT 1965 Sigmoidoscopy 1966 Pap Smear 12/27/2019 12/26/2014 Diabetes: Hemoglobin A1C 05/14/2024 024, 12/28/2023, 01/16/2023, Additional history exists Depression Monitoring (PHQ-9) 06/26/2024 12/28/2023, 12/28/2023 SDOH Screening 07/06/2024 07/07/2023 Depression Screening 12/27/2024 12/28/2023, 12/28/19 24 Diabetes: Foot Exam 12/27/2024 12/28/2023, 12/28/2023, 12/28/2023, Additional history exists Cervical Cancer Screening 01/22/2025 HPV/Cotest 01/22/2025 01/23/2020, 01/23/2020 Alcohol/Substance Use Screening 02/11/2025 02/12/2024 Diabetes: Urine Protein Screening 02/11/2025 02/12/2024, 01/16/2023, 05/31/2021, Additional history exists Lipid Panel 02/11/2025 02/12/2024, 12/24, 05/31/2021, Additional history exists Tobacco Screening 02/11/2025 02/12/2024 Pneumococcal Vaccine: 50+ Years (3 of 3 - PCV20 or PCV21) 06/20/2025 06/20/2020, 02/07/2016, 02/07/2016, Additional history exists Eye Exam 06/28/2025 06/29/2023, 0310/2023, 06/29/2023, Additional history exists Mammogram 04/05/2026 04/05/2024, 11/0 05/2022, 11/06/2020, Additional history exists DTaP/Tdap/Td Vaccines (3 - Td or Tdap) 02/15/2027 02/15/2017, 10/14/2013, 01/03/2000 Colonoscopy 09/16/2027 09/15/2017 Colorectal Cancer Screening 09/16/2027 RSV Patients and Patients Aged 60 years or older (1 - 1-dose 75+ series) 2041 Hepatitis B Vaccines Completed 05/22/2006, 09/20/2005, 08/19/2005 Hepatitis A Vaccines Aged Out 09/22/2017 No long er eligible based on patient's age to complete this topic Hepatitis C Screening Completed 08/13/2018 HIV Screening Completed 05/31/2021 Zoster Vaccines Completed 10/22/2021, 08/20/2021 COVID-19 Vaccine Completed 02/12/2024, , 11/17/2020 Influenza Vaccine Completed 02/12/2024, , 02/16/2022, Additional history exists HIB Vaccines Aged Out No longer eligi ble based on patient's age to complete this topic HPV Vaccines Aged Out No longer eligi ble based on patient's age to complete this topic IPV Vaccines Aged Out No longer eligi ble based on patient's age to complete this topic Meningococcal Vaccine Aged Out No navid kendal eligible based on patient's age to complete this topic RSV under 20 months Aged Out No longe r eligible based on patient's age to complete this topic Rotavirus Vaccines Aged Out No longer eligible based on patient's age to complete this topic Goals Goal Patient Goal Type Associated Problems Recent Progress Patient-Stated? Author Blood Pressure < 140/90 Blood Pressure 136/72(2023 11:04 AM EDT) No Mary Forbes PharmD Hemoglobin A1c < 7 Result Component 7.7( 11:33 AM EDT) No Mary Forbes PharmD Procedures Procedure Name Priority Date/Time Associated Diagnosis Comments BI MAMMOGRAM SCREENING TOMOSYNTHESIS BILATERAL Routine 04/05/2024 1:00 PM EST ALBUMIN, RANDOM URINE W/CREATININE Routine 02/12/2024 11:45 AM EDT Type 2 diabetes mellitus without complication, without long-term current use of insulin (CMS/HCC) HEMOGLOBIN A1C Routine 02/12/2024 11:33 AM EDT Type 2 diabetes mellitus without complication, without long-term current use of insulin (CMS/HCC) LIPID PANEL, STANDARD Routine 02/12/2024 11:33 AM EDT Type 2 diabetes mellitus without complication, without long-term current use of insulin (CMS/HCC) HIV 1/2 ANTIGEN/ANTIBODY, FOURTH GENERATION W/RFL Routine 05/31/2021 1:02 PM EST ZZZ HISTORICAL HPV E6/E7 RFLX ESTEE 16 18/45 Routine 01/23/2020 2:02 PM EDT HM HEPATITIS C ANTIBODY Routine 08/13/2018 HM COLONOSCOPY Routine 09/15/2017 PAP SMEAR Routine 12/26/2014 12:00 AM EDT from Last 3 Months or Most Recently Relevant to Health Maintenance Results * BI Mammogram Screening Tomosynthesis Bilateral (04/05/2024 1:00 PM EST) Anatomical Region Laterality Modality Breast Bilateral Mammography 04/05/2024 1:00 PM EST Narrative 04/15/2024 3:59 PM EST ? [facility] [place] ? [address] ?[place] [address] ? Mammography Report ? Signed ? Patient: Toussaint,Ruthie ?MR#: [id number] ?? 6 ? : 1965 ?Acct:[id number] ? Age/Sex: 58 / F ?ADM Date: 12/13/24 ? Loc: HO.MAMMO ? Attending Dr: Nikki James MD ? Ordering Physician: Nikki James MD ?Results: 1N ?? egative ? Date of Service: 04/05/24 ?Follow Up: 1 Year From Orig ?? inal Mammogram ? Procedure(s): MM tomosynthesis screening BI ?? Accession Number(s): [id number] ? cc: Nikki James MD ? EXAMINATION: ?? MM SCREENING DIGITAL BREAST TOMOSYNTHESIS, BILATERAL ? CLINICAL INFORMATION: ? Screening. Asymptomatic. ? COMPARISON: ?? Mammography: Comparison is made with available priors ? TECHNIQUE: ?? Digital breast mammography with tomosynthesis is performed in both the ?? craniocaudal and mediolateral oblique views along with computer-aided ?? detection (CAD). ? FINDINGS: ?? There are scattered areas of fibroglandular density (ACR BI-RADS breast ?? composition Category b). ? There are no significant masses, abnormal calcifications, or other ?? abnormalities. ? MM/MM tomosynthesis screening BI ?? IMPRESSION: ?? No mammographic evidence of malignancy. ? ASSESSMENT: ? BI-RADS BI-RADS 1 - Negative ? RECOMMENDATION: ?? Routine annual mammography screening. ? 1 year F/U ? This examination should not preclude the clinical evaluation of a ?? suspicious palpable abnormality. ? This patient's information was entered into a reminder system with a ?? target due date for their next mammogram. ? Electronically signed by: ??Michelle Connors DO ??04/15/2024 03:56 PM EST ?? RP ? Dictated By: ?Michelle Connors DO ? Signed By: ?<Electronically signed by Michelle Connors, DO in OV> ? 04/15/24 1556 ? DD/ 1300 ? TD/TT: 04/05/24 1318 ? Gauge Maker: ? Procedure Note Dondeniceter, Image - 04/15/2024 [facility] [address] [place] [address] Mammography Report Signed Patient: Sameera Toussaint#: [id number] 6 : 1965Acct:[id number] Age/Sex: 58 / FADM Date: 04/05/24 Loc: HO.MAMMO Attending Dr: Nikki James MD Ordering Physician: Nikki James MDResults: 1N egative Date of Service: 04/05/24Follow Up: 1 Year From Orig inal Mammogram Procedure(s): MM tomosynthesis screening BI Accession Number(s): [id number] cc: Nikki James MD EXAMINATION: MM SCREENING DIGITAL BREAST TOMOSYNTHESIS, BILATERAL CLINICAL INFORMATION: Screening. Asymptomatic. COMPARISON: Mammography: Comparison is made with available priors TECHNIQUE: Digital breast mammography with tomosynthesis is performed in both the craniocaudal and mediolateral oblique views along with computer-aided detection (CAD). FINDINGS: There are scattered areas of fibroglandular density (ACR BI-RADS breast composition Category b). There are no significant masses, abnormal calcifications, or other abnormalities. MM/MM tomosynthesis screening BI IMPRESSION: No mammographic evidence of malignancy. ASSESSMENT: BI-RADS BI-RADS 1 - Negative RECOMMENDATION: Routine annual mammography screening. 1 year F/U This examination should not preclude the clinical evaluation of a suspicious palpable abnormality. This patient's information was entered into a reminder system with a target due date for their next mammogram. Electronically signed by: Michelle Connors DO 04/15/2024 03:56 PM EST Dictated By: Michelle Connors DO Signed By: <Electronically signed by Michelle Connors DO in OV> 04/15/24 1556 DD/ 1300 TD/TT: 04/05/24 1318 Gauge Maker: Nikki James MD IMG BI PROCEDURES Final Re sult * Albumin, Random Urine W/Creatinine (02/12/2024 11:45 AM EDT) Creatinine, Urine 100.78 mg/dL [facility] Microalbumin Urine 7.0 mg/L [facility] Microalbum Creatinine Ratio Ur 6.9 <30 ug/mg cr [facility] Comment:Albumin/Creatinine R atio Reference Ranges: Normal: < 30 ug/mg creatinine Microalbuminuria: 30 - 300 ug/mg creatinineClinical Albuminuria: > 300 ug/mg creatinine Urine 02/12/2024 11:4 5 AM EDT 02/12/2024 1:10 PM EDT Nikki James MD LAB URINE ORDERABLES Final Result Performing Organization Address City/State/[facility] Co de Phone Number [facility] [address] [place] [phone] * (ABNORMAL) Hemoglobin A1c (02/12/2024 11:33 AM EDT) Hemoglobin A1c 7.7(H) <6.0 % [facility] Comment:Hemoglobin A1C Refer ence Range Adults: 4.8 - 6.0 % Non diabetic: < 6.0 % Goal: < 7.0 %Additional Action Suggested: > 8.0 %Note: Hemoglobin A1c results are invalid for patients with abnormal amounts of HbF. Blood transfusions may impact the HbA1c concentration in the patient sample. Estimated Average Glucose 174 mg/dL [facility] Comment:eAG = Estimated ave rage glucose which is %A1C expressed asaverage glucose, using the formula of the R7N-TtgkhqnXrbwmur Glucose study (ADAG), Diabetes Care, Vol.31,#8,Nov. 2007 Blood Venous blood specimen / Unknown 02/12/2024 11:33 AM EDT 02/12/2024 1:19 PM EDT Nikki James MD LAB BLOOD ORDERABLES Final Result Performing Organization Address [facility] Co de Phone Number [facility] [address] [place] [address] [phone] * Lipid Panel, Standard (02/12/2024 11:33 AM EDT) Triglycerides 86 <150 mg/dL [facility] Comment:Desirable Triglyceri de: less than 150 mg/dLBorderline High Triglyceride 150-199 mg/dLHigh Triglyceride: 200-499 mg/dLVery High Triglyceride: greater than or equal to 5OO mg/dL Cholesterol 159 <200 mg/dL [facility] Comment:Desirable Cholestero l: less than 200 mg/dLBorderline High Cholesterol: 200-239 mg/dLHigh Cholesterol: greater than 239 mg/dL LDL Cholesterol Calculated 86 <100 mg/dL [facility] Comment:Desirable LDL: less than 100 mg/dLNear Optimal/Above Optimal LDL: 110- 129 mg/dLBorderline High LDL: 130-159 mg/dLHigh LDL: 160-189 mg/dLVery High LDL: greater than or equal to 190 mg/dL HDL Cholesterol 56 >40 mg/dL [facility] Comment:Desirable HDL: great er than 40 mg/dL Note: This HDL assay may give artificially low results in patients with liver disease. Blood Venous blood specimen / Unknown 02/12/2024 11:33 AM EDT 02/12/2024 1:37 PM EDT Nikki James MD LAB BLOOD ORDERABLES Final Result Performing Organization Address [facility]/ZIP Co de Phone Number [facility] [address] [place] [address] [phone] * HIV 1/2 ANTIGEN/ANTIBODY,FOURTH GENERATION W/RFL (05/31/2021 1:02 PM EST) HIV-1/2 ANTIGEN AND ANTIBODIES, 4TH GENERATION W/ REFLEX NON-REACT MARTIN NON-REACT MARTIN [facility] Comment: HIV-1 antigen and HIV-1/HIV-2 antibodies were not detected. There is no laboratory evidence of HIV infection. ?? PLEASE NOTE: This information has been disclosed to you from records whose confidentiality may be protected by state law. ??If your state requires such protection, then the state law prohibits you from making any further disclosure of the information without the specific written consent of the person to whom it pertains, or as otherwise permitted by law. A general authorization for the release of medical or other information is NOT sufficient for this purpose. ? For additional information please refer to http://education.[place] ([employer])/faq/OJN722 (This link is being provided for informational/ educational purposes only.) ? The performance of this assay has not been clinically validated in patients less than 2 years old. ?? 05/31/2021 1:02 PM EST Nikki James MD LAB BLOOD ORDERABLES Final Result Performing Organization Address City/State/[facility] Co de Phone Number [facility] [address] * HPV E6/E7 RFLX ESTEE 16 18/45 (01/23/2020 2:02 PM EDT) HPV 16 RNA [facility] HPV 18/45 RNA [facility] HPV E6 E7 ADD [facility] HPV mRNA E6/E7 Not Detected Not Detected [facility] Comment: This test was performed using the APTIMA HPV Assay ([employer] This assay detects E6/E7 viral messenger RNA (mRNA) from 14 high-risk HPV types (16,18,31,33,35,39,45,51,52,56,58,59,66,68). The analytical performance characteristics of this assay have been determined by [employer]. The modifications have not been cleared or approved by the FDA. This assay has been validated pursuant to the CLIA regulations and is used for clinical purposes. THIS TEST WAS PERFORMED AT: [facility] [address] [place] [address],[address] [place], [place] ??[phone] CASSIE VANCE MD 01/23/2020 2:02 PM EDT Jessica Grace HISTORICAL/NON ORDERABLE LABS Fi nal Result [facility] [address] [place] [phone], * HM Hepatitis C Antibody (08/13/2018) Hepatitis C Antibody Nonreactive Blood Historical Provider MD HEALTH MAINTENANCE Final Result * Hm Colonoscopy (09/15/2017) Colonoscopy normal with Dr. 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 Bravo [facility] [address] [place] [phone] Orthopaedic Surgery 05/15/24
--- OUTSIDE RECORDS SUMMARY | 2024-06-12 12:16 | XMS_ITS | Clinical Summary ---
Author Organization Former[facility] Address [address] [place] [address] Care Team Providers Care Lepidopterist Name Role Phone Unavailable Primary Care Provider Unavailabl e Social History Tobacco Use Types Packs/Day Years Used Date Smoking Tobacco: Never Assessed Sex and Gender Information Value Date Recorded Sex Assigned at Not on file Gender Identity Not on file Sexual Orientation Not on file Plan of Treatment Health Maintenance Due Date Last Done Comments Hepatitis C Virus Screening 1966 HIV Screening 08/17/1979 DTaP/Tdap/Td Vaccines (1 - Tdap) 1985 Hepatitis B Vaccines (1 of 3 - 19+ 3-dose series) 1985 Pneumococcal Vaccines 50+ (1 of 1 - PCV) 2016 Zoster (Shingles) Vaccine (1 of 2) 2016 COVID-19 Vaccine (2023-2 5 season) 2023 Pneumococcal Vaccine: Pediat lionel (0-5 Years) and At-Risk Patients (6 to 49 Years) Aged Out No longer eligible b ased on patient's age to complete this topic
--- OUTSIDE RECORDS SUMMARY | 2024-06-12 12:17 | XMS_ITS | Encounter Summary ---
Author Organization [employer] Address [address] [facility] [address] [place] [address] Care Team Providers Care Voice Instructor Name Role Phone Nikki James MD Primary Care Provider [phone] Mary Rain PharmD Unavailable [phone] Gerson Briggs Unavailable [phone] Babatunde Cornejo DO Unavailable [phone] Delaney Cantu Unavailable Reason for Visit * Reason Onset Date Comments Nurse Triage 06/06/2024 Encounter Details Date Type Department Care Team (Late st Contact Info) Description 06/06/2024 Telephone [facility] [address] [place], [place] [phone] Nikki James MD [address] [place], [place] [phone] Nurse Triage Social History Tobacco Use Types Packs/Day Years [...] AM EDT documented as of this encounter Miscellaneous Notes * Telephone Encounter - Jenna Walter MD - 06/11/2024 4:58 PM EST Referred STAT * Telephone Encounter - Mandi Junior RN - 06/08/2024 9:58 AM EST Doesn't look like pt went to [facility] or [facility] ED. I do see however a surgical day care scheduled encounter in [facility] possibly for this. Telephone call placed to pt to status check. Pt handed phone to her daughter and gave verbal authorization for me to speak with both of them on speaker phone. Inquired about status of lump on her labia. Pt reports it is the same and that she has had this before. Denies purulent discharge or fever at this time. Not growing in size per pt. Pt states called [facility] (she sees Jessica Grace CNM) to make an appt since she saw her for this issue prior but they said she needs a new referral. She states doesn't feel like she needs to be seen since this is a reoccurring issue and that she just wants to see her specialist for this again. Informed I would send request for STAT referral. Provided ED precautions for S/Sx of infection and information on NTTS. * Telephone Encounter - Mandi Junior RN - 06/06/2024 4:07 PM EST Agree with below recommendations. Will retask to check and make sure she went * Telephone Encounter - Lucero Mares RN - 06/06/2024 3:43 PM EST No kardex clerk needed as this sports writer speaks Japanese. Call returned to Ruthie Toussaint to triage below. Reports having a lump on left labia x 1 month. Per pt having discharge and tender to touch. Per ptpurulent discharge. Denies any fever. Pt offered WIC for tomorrow as no sick on site. Pt states only looking for Referral to [facility]ifery to have Jessica Grace CNM see patient as previouslyseen for same issue with them in past. Pt advised will send request to PCP to review and further advise [facility] team nurses of plan of care. Reviewed WIC operating hours and that wait times vary. Reviewed home care advise, ER precautions and reasons to call back. Protocol Used: Vaginal Symptoms (Adult) Protocol-Based Disposition: See in Office or Video Visit Today Override (Final) Disposition: Discuss with PCP and Callback by Nurse Today Override Reason: Other Override Notes: Requesting Referral Positive Triage Question: * Genital area looks infected (e.g., draining sore, spreading redness) * All higher-acuity triage questions were negative Care Advice Discussed: * Reasons To Call Back - Fever occurs * Telephone Encounter - Juan Manuel Gomez - 06/06/2024 3:14 PM EST Symptom: Vaginal Symptoms - Not Bleeding Outcome: Talk to a nurse or provider within 15 minutes Reason: Severe pelvic pain now The caller accepted this outcome. documented in this encounter Plan of Treatment Not on file documented as of this encounter Goals Goal Patient Goal Type Associated Problems Recent Progress Patient-Stated? Author Blood Pressure < 140/90 Blood Pressure 136/72(2023 11:04 AM EDT) No Mary Forbes PharmTacho Hemoglobin A1c < 7 Result Component 7.7( 11:33 AM EDT) No Mary Forbes PharmD documented as of this encounter Visit Diagnoses Not on filedocumented in this encounter Additional Health Concerns Assessment Noted Time PHQ-9 Depression Total Score: 12 024 10:49 AM EDT documented as of this encounter Care Teams Voice Instructor Relationship Specialty Start Date End Date Nikki James MD [address] [place] [address] PCP - General Family Medicine 04/24/18 Mary Rain PharmD [address] [place] [phone] Pharmacist Internal Medicine 01/26/23 Gerson Briggs [address] [place] [phone] Pulmonary Disease 04/08/24 Babatunde Cornejo DO [address] [place] [address] Endocrinology 04/08/24 Delaney Cantu [address] [place] [address] Dermatology 04/08/24 Dr. Bravo [facility] [address] [place] [address] Orthopaedic Surgery 05/15/24 documented as of this encounter
--- OUTSIDE RECORDS SUMMARY | 2024-06-12 12:17 | XMS_ITS | Data Portability ---
Author Organization [place] - [facility], [facility] Address [address] [place] [address] Care Team Providers Care Network Contract Manager Name Role Phone JOHNINÉS BIRMINGHAM Primary Care Provider Assessment No assessment recorded. Plan of Treatment Reminders Order Date Submit Date Provider Last Modified By Organization Details Last Modified Time Details Appointments None recorded. Lab None recorded. Referral physical therapist referral - VMO Strengthe casie, Hip Abductor, Glute Med Strengthe casie, Quad & Hamstring Stretchin g, Patella Mobilizat ion, Kincaid Taping at your discretio n. 2024 025 [facility], [address] [place], [address], 5 09:38:28 physical therapist referral - Evaluate & RxLumbar Stabiliza tion Program 2023 024 [email or web address] Not available 4 10:06:55 Procedures None recorded. Surgeries None recorded. Imaging None recorded. Medication Orders None recorded. Patient TargetsNo targets recorded. Patient InstructionsNo instructions recorded. Reason for Referral Physical Therapist Referral for Lumbar radiculopathy Evaluate & RxLumbar Stabilization Program Referring Physician: David Florentino, Orthopedic Surgery, [id number] Encounter Date: 11/23/2023 Physical Therapist Referral for History of arthroscopy of knee joint VMO Strengthening, Hip Abductor, Glute Med Strengthening, Quad & Hamstring Stretching, Patella Mobilization, Kinciad Taping at your discretion. Referring Physician: Dominik Oliver, Orthopedic Surgery, Encounter Date: 05/14/2024 Problems Name Problem SNOMED Code Status Onset Date Resolution Date Notes Provider Name and Address Organization Details Recorded Time Lumbar radiculopat hy 484583668 Active 2023 ALIA VALLEJOBROOK [facility] 4 13:33:58 Tear of lateral meniscus of knee 246990734 Active 2023 THONG GREWAL [facility] 4 12:27:25 Acute tear of lateral meniscus of right knee 1894145245209 9100 Active 2023 THONG GREWAL [facility] 4 12:29:09 Problem Notes None recorded. Procedures Surgical History Date Name Laterality Status Provider Name and Address Organization Details Recorded Time 11/23/2023 Sports Knee 4&1 completed David Florentino MD [address] [place] [address] [address], [place], [address], [facility] 11/23/2023 13:41:58 Imaging Results None recorded. Procedure Notes None recorded. Medical Equipment None Reported. Allergies Allergen ID Allergen Name Allergen Category Reaction Reaction Severity Criticality Documentation Date Start Date Code Code System Note Provider Name and Address Organization Details Recorded Time 435144 amoxicill in medicatio n Not available Not available Not available 11/23/2023 723 RxNorm [facility] 13:26:38 988975 Product containin g penicilli n (product) medicatio n Not available Not available Not available 11/23/2023 14125 8001 SNOMED [facility] 13:26:44 785925 Iodinated contrast media (substanc e) medicatio n Not available Not available Not available 11/23/2023 25447 2003 SNOMED [facility] 13:26:51 829109 morphine medicatio n Not available Not available Not available 11/23/2023 7052 RxNorm [facility] 13:27:02 Medications Name Sig Start Date Stop Date Status Note LastModified by Organization Details LastModified Time atorvastatin 40 mg tablet active Not Available Not Available Not Available albuterol sulfate 2.5 mg/3 mL (0.083 %) solution for nebulization INHALE 3 ML VIA NEBULIZER EVERY 6 HOURS NEEDED FOR SHORTNESS OF BREATH OR WHEEZING active Not Available Not Available No t Available lisinopril 20 mg tablet active Not Available Not Available No t Available prednisone 20 mg tablet TAKE 3 TABLETS BY MOUTH DAILY active Not Available Not Available No t Available sertraline 100 mg tablet TAKE 2 TABLETS BY MOUTH ONCE A DAY active Not Available Not Available No t Available cyanocobalami n (vit B-12) 250 mcg tablet TAKE 1 TABLET BY MOUTH EVERY DAY active Not Available Not Available No t Available aspirin 81 mg tablet,delaye d release TAKE 1 TABLET BY MOUTH EVERY DAY active Not Available Not Available No t Available triamcinolone acetonide 0.1 % topical cream APPLY TOPICALLY TO THE AFFECTED AREA TWICE DAILY active Not Available Not Available No t Available pantoprazole 20 mg tablet,delaye d release TAKE 1 TABLET BY MOUTH EVERY DAY active Not Available Not Available No t Available lorazepam 0.5 mg tablet TAKE 1 TABLET BY MOUTH DAILY NEEDED FOR ANXIETY active Not Available Not Available No t Available tacrolimus 0.1 % topical ointment APPLY TOPICALLY TO THE AFFECTED AREA TWICE DAILY active Not Available Not Available No t Available buspirone 10 mg tablet TAKE 1 TABLET BY MOUTH TWICE DAILY active Not Available Not Available No t Available lidocaine 5 % topical patch UNWRAP AND APPLY 1 PATCH TOPICALLY TO MOST PAINFUL AREA DAILY FOR UP TO 12 HOURS active Not Available Not Available No t Available montelukast 10 mg tablet active Not Available Not Available Not Available hydroxyzine HCl 25 mg tablet active Not Available Not Available Not Available acetaminophen 300 mg-codeine 60 mg tablet TAKE 1 TABLET BY MOUTH THREE TIMES DAILY NEEDED FOR PAIN active Not Available Not Available No t Available hydrochloroth iazide 25 mg tablet active Not Available Not Available Not Available zolpidem 5 mg tablet TAKE 1 TABLET BY MOUTH AT BEDTIME NEEDED active Not Available Not Available No t Available topiramate 100 mg tablet TAKE 1 TABLET BY MOUTH TWICE DAILY active Not Available Not Available No t Available naproxen 500 mg tablet TAKE 1 TABLET BY MOUTH TWICE DAILY active Not Available Not Available No t Available Ventolin HFA 90 mcg/actuation aerosol inhaler INHALE 2 PUFFS BY MOUTH EVERY 6 HOURS NEEDED FOR SHORTNESS OF BREATH OR WHEEZING active Not Available Not Available No t Available oxycodone 5 mg tablet TAKE 1-2 TABLETS BY MOUTH EVERY 6 HOURS NEEDED active Not Available Not Available No t Available cholecalcifer ol (vitamin D3) 25 mcg (1,000 unit) capsule TAKE 1 CAPSULE BY MOUTH EVERY DAY active Not Available Not Available No t Available cyclobenzapri ne 5 mg tablet TAKE 1 TABLET BY MOUTH THREE TIMES DAILY NEEDED FOR MUSCLE SPASM active Not Available Not Available No t Available duloxetine 30 mg capsule,delay ed release TAKE 1 CAPSULE BY MOUTH DAILY active Not Available Not Available No t Available FreeStyle Lite Strips USE TO TEST BLOOD SUGAR ONCE EVERY MORNING active Not Available Not Available No t Available levocetirizin e 5 mg tablet TAKE 1 TABLET BY MOUTH EVERY DAY active Not Available Not Available No t Available Anoro Ellipta 62.5 mcg-25 mcg/actuation powder for inhalation INHALE 1 PUFF BY MOUTH DAILY active Not Available Not Available No t Available Jardiance 10 mg tablet TAKE 1 TABLET BY MOUTH EVERY DAY active Not Available Not Available No t Available turmeric 450 mg-turmeric root extract 50 mg capsule TAKE ONE CAPSULE BY MOUTH DAILY active Not Available Not Available No t Available roflumilast 250 mcg tablet TAKE 1 TABLET BY MOUTH DAILY active Not Available Not Available No t Available OneTouch Ultra2 Meter TEST BLOOD SUGAR EVERY DAY active Not Available Not Available No t Available OneTouch Delica Plus Lancet 33 gauge USE TO TEST BLOOD SUGAR ONCE A DAY active Not Available Not Available No t Available Dupixent 300 mg/2 mL subcutaneous pen injector active Not Available Not Available Not Available Breztri Aerosphere 160 mcg-9mcg-4.8m cg/actuation HFA aerosol inhaler INHALE 2 PUFFS BY MOUTH TWICE DAILY active Not Available Not Available No t Available Ozempic 1 mg/dose (4 mg/3 mL) subcutaneous pen injector INJECT 1 MG UNDER THE SKIN EVERY 7 DAYS active Not Available Not Available No t Available Ozempic 0.25 mg or 0.5 mg (2 mg/3 mL) subcutaneous pen injector active Not Available Not Available Not Available Vitals Date Recorded Body height Body mass index (BMI) Body weight Provider Name and Address Organization Details Last Updated DateTime 11/23/2023 162.56 cm 38.1 kg/m2 552973.51 g ALIA JONES [place] - [facility] 11/23/2023 13:26:31 Date Recorded Body height Body mass index (BMI) Body weight Provider Name and Address Organization Details Last Updated DateTime 02/29/2024 162.56 cm 38.1 kg/m2 601728.51 g THONG GREWAL [place] - [facility] 02/29/2024 15:27:30 Date Recorded Body height Body mass index (BMI) Body weight Body temperature Provider Name and Address Organization Details Last Updated DateTime 05/14/2024 162.56 cm 38.1 kg/m2 642571.51 g 98 [degF] Dominik Oliver PA-C [address], [place], [address] , [place] - [facility] 05/14/2024 15:51:10 Social History None recorded. Functional Status None recorded. Mental Status None recorded. Family History Nothing Reported. Medical History Condition Response Cholesterol Y Diabetes Y Stroke Y Asthma Y Hypertension Y Gynecological HistoryNo gynecological history recorded. Obstetrics History GPAL:G 0 P 0 0 0 0 Past Encounters Encounter ID Performer Location Encounter Start Date Encounter Closed Date Diagnosis/Indication Diagnosis SNOMED-CT Code Diagnosis ICD10 Code Diagnosis Note [id number] MD [facility] [address] [place] [address] 11/23/2023 13:09:21 12/22/2023 10:06:54 Lumbar radiculopathy 921545955 M54.16 Tear of la teral meniscus of knee 255444892 S83.281D [id number] MD [facility] [address] [place] [address] 02/29/2024 15:25:44 04/01/2024 13:26:13 Tear of lateral meniscus of knee 238715162 S83.281D [id number] Dominik Oliver PA-C [facility] [address] [place] [address] 05/14/2024 15:45:41 05/31/2024 09:38:28 History of arthroscopy of knee joint 260713576 Z98.890 Health Concerns Section Related Observation LastModified by Organization Detai ls LastModified Time None Recorded Concern Status LastModified by Organization Details LastModified Time None Recorded Advance Directives Directive None Recorded Payers Encounter Date Sequence Insurance Name Policy Number Policy Hernández Covered Member ID Hernández Member ID Guarantor Name 11/23/2023 1 [facility] - DOS ON OR AFTER 2022 - ONE CARE (MEDICARE REPLACEMENT/ADV ANTAGE - HMO) Ruthie Toussaint [id number] Ruthie Toussaint 02/29/2024 1 [facility] - DOS ON OR AFTER 2022 - ONE CARE (MEDICARE REPLACEMENT/ADV ANTAGE - HMO) Ruthie Toussaint [id number] Ruthie Toussaint 05/14/2024 1 [facility] - DOS ON OR AFTER 2022 - ONE CARE (MEDICARE REPLACEMENT/ADV ANTAGE - HMO) Ruthie Toussaint [id number] Ruthie Toussaint Notes Date Note Type Note Provider Name and Address Organization Details Recorded Time 4 text/htm l HPI: Patient is seen today for follow-up evaluation of their {{right* left}} knee MRI. They have been modifying their activity and working on range of motion. Patient reports intermittent sharp mechanical pain still in the knee. Patient complains of occasional moderate/severe amounts of pain with ADL and frustrated by his lack of improvement wants to discuss possibility surgery at this time. Patient reports ongoing right knee pain now greater than 4 months duration. No demonstrable event or injury that she is aware of. She does describe some radicular component exam to the right lower extremity radiating to right back and right lateral leg. 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 There is a suspicion of a radial tear in the body segment of the lateral meniscus. Past family, medical, social history and review of systems has been reviewed, updated and signed by me and is located in the patient? s chart. PHYSICAL EXAMINATION: The patient is well appearing and in no apparent distress. Alert and oriented x3. Gait is symmetric. EXAM:HEENT is unremarkableHeart regular rate and rhythm without murmurs rubs gallopsAbdomen soft nontender nondistended positive bowel sounds.Lungs are clear bilaterally without rales rhonchi or wheezesPeripheral, vascular, lymphatic examination, skin, neurological, coordination, reflexes, sensation are within normal limits. {{right* left}} knee ROM is full, stability intact both anterior, posterior, and varus/valgus stress at both 0 and 30 degrees of flexion. Medial meniscal tenderness. Positive Ginger's maneuver. No crepitus,no effusion, 5/5 strength. Positive straight leg raise on the right with sciatic nerve compression symptoms. {{right left*}} knee ROM is full, stability intact both anterior, posterior, and varus/valgus stress at both 0 and 30 degrees of flexion. No meniscal tenderness. Negative Ginger's maneuver. No crepitus,no effusion, 5/5 strength. IMPRESSION: Lateral meniscus tear left knee. MRI documented. Unfortunately the patient complains of primarily medial sided right knee pain. I have concerns that arthroscopic intervention for her lateral meniscus tear may not substantially improve her alter her right lower limb complaints. Today we elected to trial a repeat corticosteroid injection. Would like to have her evaluated formally for her lumbar spine disease and based upon her response to appropriate treatment we may ultimately consider arthroscopic surgical intervention but I would like to exhaust conservative care first. Follow-up 3 months. David Florentino MD [address] [place] [address] [address], [place], [address], [facility] 11/23/2023 13:51:28 4 text/htm l HPI: Patient is seen today for follow-up evaluation of their {{right* left}} knee MRI. They have been modifying their activity and working on range of motion. Patient reports intermittent sharp mechanical pain still in the knee. Patient complains of occasional moderate/severe amounts of pain with ADL and frustrated by his lack of improvement wants to discuss possibility surgery at this time. Patient reports ongoing right knee pain now greater than 7 months duration. No demonstrable event or injury that she is aware of. She does describe some radicular component exam to the right lower extremity radiating to right back and right lateral leg.Radicular symptoms have largely resolved with activity modification and a light home stretching program. 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 There is a radial tear in the body segment of the lateral meniscus. Past family, medical, social history and review of systems has been reviewed, updated and signed by me and is located in the patient? s chart. PHYSICAL EXAMINATION: The patient is well appearing and in no apparent distress. Alert and oriented x3. Gait is symmetric. EXAM:HEENT is unremarkableHeart regular rate and rhythm without murmurs rubs gallopsAbdomen soft nontender nondistended positive bowel sounds.Lungs are clear bilaterally without rales rhonchi or wheezesPeripheral, vascular, lymphatic examination, skin, neurological, coordination, reflexes, sensation are within normal limits. {{right* left}} knee ROM is full, stability intact both anterior, posterior, and varus/valgus stress at both 0 and 30 degrees of flexion. Lateral meniscal tenderness. Positive Lateral Ginger's maneuver. 1+ patellofemoral crepitus,no effusion, 5/5 strength. Positive straight leg raise on the right with sciatic nerve compression symptoms. {{right left*}} knee ROM is full, stability intact both anterior, posterior, and varus/valgus stress at both 0 and 30 degrees of flexion. No meniscal tenderness. Negative Ginger's maneuver. No crepitus,no effusion, 5/5 strength. IMPRESSION: Lateral meniscus tear left knee. MRI documented. Today medial sided pain is resolved lateral sided pain persists. Given persistent symptoms now appropriate to address her complex lateral meniscus tear. Plan is a right knee diagnostic and operative arthroscopy with planned partial lateral meniscectomy.Today we had the opportunity to review with the patient the pathoanatomy. Discussed the surgical intervention proposed and its nonoperative alternatives. Reviewed today the risks, benefits, the expectations both of the surgical procedure and again its nonoperative alternatives. After reviewing appropriate treatment options patient would like to move towards scheduling. Informed consent was obtained in the office today. We will work towards scheduling hopefully within the next 30 days. David Florentino MD [address] [place] [address] [address], [place], [address], [facility] - [facility] 02/29/2024 16:15:09 5 text/htm l I am seeing the patient today under the supervision of Dr. Bravo who was available but who did not see the patient.HISTORY OF PRESENT ILLNESSThe patient returns for initial postop evaluation status post right knee Arthroscopy. Patient reports no initial adverse complications during the perioperative/postoperative course. They are pleased with their initial progress. Operative findings: Complex tear lateral meniscus, focal grade 2 changes patella, multiple chondral loose particles, focal grade 3 changes lateral compartment, intact cruciate and collateral ligaments, intact medial meniscus.PHYSICAL FINDINGSThe patient ambulates with crutches, mild antalgic gait, 1+ effusion. Incision is healing well. Sutures Removed, steri's applied. No sign of infection or DVT. ASSESSMENTStatus post right knee ArthroscopyPLANDiscussed plans for slow return to normal activities over 4-6 weeks. Continue modifications activities utilizing ice, oral NSAIDs as clinically indicated. Benefits of home physical therapy described and outlined in detail for the patient today. Recommendation is made for follow-up care in 6 weeks' time if patient remains symptomatic. Dominik Oliver PA-C [address] [facility] [address], [place], [address], [facility] - [facility] 05/14/2024 16:02:41 OBGyn Episode No OBEpisode recorded.
--- OUTSIDE RECORDS SUMMARY | 2024-06-12 12:17 | XMS_ITS | Encounter Summary ---
Author Organization [employer] Address [address] [facility] [address] [place] [address] Care Team Providers Care Vegetable Inspector Name Role Phone Nikki James MD Primary Care Provider [phone] Mary Rain PharmD Unavailable Gerson Briggs Unavailable [phone] Babatunde Cornejo DO Unavailable [phone] Delaney Cantu Unavailable Reason for Visit * Reason Onset Date Comments Nurse Triage 05/16/2023 Encounter Details Date Type Department Care Team (Late st Contact Info) Description 05/16/2023 Telephone [facility] [address] [place], [place] [phone] Nikki James MD [address], [place] [phone] Nurse Triage Social History Tobacco Use Types [...] encounter Miscellaneous Notes * Telephone Encounter - Denisa Bailey RN - 05/16/2023 12:32 PM EST Triage call with [place] marketing information analyst [id number] Pt reports positive Covid test 05/10/23. Pt reports main symptom today is a cough. Temp is 99.7-99.9. Pt does report perspiring at night and occasionally during the day. Pt is taking nyquill and coughsyrup but, the cough continues. Pt is advised to increase liquids to 6-8 glasses daily, warm liquids, decaf tea with honey and broth. Juices, water also. 1-2 tsp of honey, cough drops , OTC cough syrup. Pt doesn't have a humidifier and is advised to use hot steamy air from shower for coughing spells or place a pot of water on stove and boil to get some steam in the air while cooking. No further questions offered. Pt agrees with home care disposition and advice and will call back if needed. Protocol Used: COVID-19 - Diagnosed or Suspected (Adult) Protocol-Based Disposition: Home Care Positive Triage Question: * COVID-19 diagnosed by positive lab test (e.g., PCR, rapid self-test kit) and mild symptoms (e.g.,cough, fever, others) and no complications or SOB * All higher-acuity triage questions were negative Care Advice Discussed: * Reassurance and Education - Positive COVID-19 Lab Test and Mild Symptoms * General Care Advice for COVID-19 Symptoms * Cough Medicines * Cough Syrup With Dextromethorphan * Cough Syrup With Dextromethorphan - Extra Notes and Warnings * Humidifier * Coughing Spells * Pain and Fever Medicines * Reasons To Call Back - Fever over 103 F (39.4 C) - Fever lasts over 3 days - Fever returns after being gone for 24 hours - Chest pain or difficulty breathing occurs - You become worse * COVID-19 - How to Protect Others - When You Are Sick With COVID-19 * Clean Your Hands Often * Telephone Encounter - Lonnie Kim - 05/16/2023 11:39 AM EST Symptom: COVID-19 positive as of 05/10 Outcome: Schedule a same-day appointment or talk to a nurse or provider today Reason: Caller denied all higher acuity questions The caller accepted this outcome Patient speaks thai documented in this encounter Plan of Treatment Not on file documented as of this encounter Goals Goal Patient Goal Type Associated Problems Recent Progress Patient-Stated? Author Blood Pressure < 140/90 Blood Pressure 136/72(2023 11:04 AM EDT) No Mary Forbes, PharmTacho Hemoglobin A1c < 7 Result Component 7.7( 11:33 AM EDT) No Mary Forbes PharmD documented as of this encounter Visit Diagnoses Not on filedocumented in this encounter Additional Health Concerns Assessment Noted Time PHQ-9 Depression Total Score: 10 023 11:39 AM EDT documented as of this encounter Care Teams Vegetable Inspector Relationship Specialty Start Date End Date Nikki James MD [address], [place] [phone] PCP - General Family Medicine 04/24/18 Mary Rain, PharmD [address] [place] [address] Pharmacist Internal Medicine 01/26/23 Gerson Briggs [address] [place] [address] Pulmonary Disease 04/08/24 Babatunde Cornejo DO [address] [place] [address] Endocrinology 04/08/24 Delaney Cantu [address] [place] [address] Dermatology 04/08/24 Dr. Bravo [facility] [address] [place] [address] Orthopaedic Surgery 05/15/24 documented as of this encounter
--- OUTSIDE RECORDS SUMMARY | 2024-06-12 12:17 | XMS_ITS | Encounter Summary ---
Author Organization [employer] Address [address] [facility] [address] [place] [address] Care Team Providers Care Liquid Sugar Fortifier Name Role Phone Nikki James MD Primary Care Provider [phone] Mary Rain PharmD Unavailable Gerson Briggs Unavailable [phone] Babatunde Cornejo DO Unavailable [phone] Jayme Cantua Unavailable Encounter Details Date Type Department Care Team (Late st Contact Info) Description 04/21/2022 Orders Only [facility] [address] [place] [address] Lisa Navarro RN Social History Tobacco Use Types Packs/Day Years Used Date Smoking Tobacco: Never Assessed Comments Unknown Sex and Gender Information Value Date Recorded Sex Assigned at Female 02/21/2022 10:15 AM EDT Legal Sex Female 10:15 AM EDT Gender Identity Female 02/21/2022 10:15 AM EDT Sexual Orientation Straight 02/21/2022 10 :15 AM EDT documented as of this encounter Plan of Treatment Not on file documented as of this encounter Visit Diagnoses Not on filedocumented in this encounter Care Teams Liquid Sugar Fortifier Relationship Specialty Start Date End Date Nikki James MD [address] [place] [phone] PCP - General Family Medicine 04/24/18 Mary Rain, PharmD [address] [place] [phone] Pharmacist Internal Medicine 01/26/23 Gerson Briggs [address] [place] [address] Pulmonary Disease 04/08/24 Babatunde Cornejo DO [address] [place] [address] Endocrinology 04/08/24 Delaney Cantu [address] [place] [address] Dermatology 04/08/24 Dr. Bravo [facility] [address] [place] [address] Orthopaedic Surgery 05/15/24 documented as of this encounter
--- OUTSIDE RECORDS SUMMARY | 2024-06-12 12:17 | XMS_ITS | Encounter Summary ---
Author Organization [employer] Address 75 [facility] 7t [place] [address] Care Team Providers Care Tin Flopper Name Role Phone Nikki James MD Primary Care Provider +1- [phone] Mary Rain PharmD Unavailable Gerson Briggs Unavailable [phone] Babatunde Cornejo DO Unavailable [phone] Delaney Cantu Unavailable Reason for Visit * Reason Onset Date Comments Med Refill 05/29/2024 Encounter Details Date Type Department Care Team (Late st Contact Info) Description 05/29/2024 Refill [facility] MED & PEDS [address] [place] [address] Nikki James MD 230 [place] [address] Pain Social History Tobacco Use Types Packs/Day Years [...] as of this encounter Visit Diagnoses Diagnosis Pain Generalized pain documented in this encounter Additional Health Concerns Assessment Noted Time PHQ-9 Depression Total Score: 12 024 10:49 AM EDT documented as of this encounter Care Teams Tin Flopper Relationship Specialty Start Date End Date Nikki James MD [address] [place] [address] PCP - General Family Medicine 04/24/18 Mary Rain PharmD 230 [place] [address] Pharmacist Internal Medicine 01/26/23 Gerson Briggs 5 [place] [address] Pulmonary Disease 04/08/24 Babatunde Cornejo DO 22 [place] [address] Endocrinology 04/08/24 Delaney Cantu [address] [place] [address] Dermatology 04/08/24 Dr. Bravo [facility] Orthopedics [address] [facility] [address] Orthopaedic Surgery 05/15/24 documented as of this encounter
--- OUTSIDE RECORDS SUMMARY | 2024-06-12 12:17 | XMS_ITS | Patient Health Record ---
Author Organization [facility] Address [address] [place] [address] Care Team Providers Care Tub Tender Name Role Phone Nikki James MD Primary Care Provider Uzair Ferguson [phone] ALLERGIES Allergen (clinical drug ingredient) Drug/Non Drug Allergy documented on EMR Reaction Allergy Type Onset Date Status morphine Morphine Unknown Drug Allergy Active Iodinated contrast media (substance) Iodinated Contrast Media Unknown Drug Allergy Active amoxicillin Amoxicillin Unknown Drug Allergy Act marychuy Substance with beta adrenergic receptor antagonist mechanism of action (substance) beta timothy (uncoded) Unknown Allergy Active REASON FOR REFERRAL No Information MEDICATIONS Medication SIG (Take, Route, Frequency, Duration) Notes Start Date End Date Status Pantoprazole Sodium 20 MG Oral for 90 Active DULoxetine HCl 30 MG TAKE 1 CAPSULE BY MOUTH DAILY Oral for 90 Active hydroCHLOROthiazide 25 MG Oral for 90 I10,Un availa ble Active Jardiance 10 MG Oral for 90 Ac tive Ozempic (1 MG/DOSE) 4 MG/3ML INJECT 1 MG UNDER THE SKIN EVERY 7 DAYS Subcutaneous for 28 Active Anoro Ellipta 62.5-25 MCG/ACT INHALE 1 PUFF BY MOUTH DAILY Inhalation for 30 J449,Unavail able Active Naproxen 500 MG Oral for 30 Ac tive Ozempic (0.25 or 0.5 MG/DOSE) 2 MG/3ML Subcutaneous for 28 Act marychuy OneTouch Delica Plus [id number] - USE TO TEST BLOOD SUGAR ONCE DAY for 90 Active Lisinopril 20 MG Oral for 90 I10,Unavaila ble Active hydrOXYzine HCl 25 MG Oral for 30 Active Montelukast Sodium 10 MG Oral for 90 J4540,U navai lable Active Aspirin Low Dose 81 MG TAKE 1 TABLET BY MOUTH EVERY DAY Oral for 90 Active Vitamin D3 25 MCG (1000 UT) TAKE 1 CAPSU LE BY MOUTH EVERY DAY Oral for 30 M797,Unavail able Active Breztri Aerosphere 160-9-4.8 MCG/ACT INHALE 2 PUFFS BY MOUTH TWICE DAILY Inhalation for 30 Active Atorvastatin Calcium 40 MG Oral for 90 Active IMMUNIZATIONS Vaccine Route Administration Date Status Comme nts Influenza Unknown 02/13/2024 Administered SOCIAL HISTORY Tobacco Use: Social History Observation Description Date Details (start date - stop date) Never Smoker NA - NA Sex Assigned At : Social History Observation Description Sex Assigned At Unknown Tobacco Use/Smoking Question Answer Notes Patient is a nonsmoker Alcohol Screen Question Answer Notes Did you have a drink containing alcohol in the p ast year? No Points 0 Interpretation Negative PROBLEMS Problem Type ICD Code Onset Dates Problem Status W/U Status Risk SNOMED Code Notes Problem Chronic GERD (K21.9) Active confirmed Gastroesophagea l reflux disease (disorder) (416838502) Problem Heartburn (R12) Active confirmed Heartburn (06936259) VITAL SIGNS Temperature 97.8 degrees Fahrenheit 06/07/2024 Blood pressure diastolic 00 mm Hg 06/07/2024 Height 5 ft 4 in in 06/07/2024 Blood pressure systolic 000 mm Hg 06/07/2024 Weight 212 lbs 06/07/2024 BMI 36.39 kg/m2 06/07/2024 Encounters Encounter Location Date Provider Diagnosis [facility] [address] [facility] [address] [place] [address] 06/07/2024 Uzair Ruiz Chronic GERD K21.9 and Heartburn R12 ASSESSMENTS Encounter Date Diagnosis Assessment Notes Treatment Notes Treatment Clinical Notes 06/07/2024 Heartburn (ICD-10 - R12) 06/07/2024 Chronic GERD (ICD-10 - K21.9) DO NOT TAKE OZEMPIC FOR 7 DAYS BEFORE THE UPPER ENDOSCOPY DO NOT TAKE JARDIANCE FOR 3 DAYS BEFORE THE UPPER ENDOSCOPY DO NOT TAKE ASPIRIN ON THE DAY OF THE UPPER ENDOSCOPY PLAN OF TREATMENT Future Test Test Name Order Date UPPER GI ENDOSCOPY 06/07/2024 Next Appt Details Provider Name:Uzair Ruiz , 09/02/2024 01:30:00 PM, [address] [place] [address] , [place], [place], [id number], Insurance Providers Payer Name Payer Address Payer Phone Subscriber Number Group Number Insured Name Patient Relationship to Insured Coverage Start Date Coverage End Date [facility] [address] [place] [address] [id number] Ruthie Toussaint Self - patient is the insured MEDICAL (GENERAL) HISTORY Medical History History ICD Code NIDDM High blood pressure Fibromyalgia Arthritis Strok ein 2009 due to aneurysm with surg debora-right side weakness Asthma Denies LA or renal disease Negative colonoscopy in approx 2021 Hyperlipidemia Depression Surgical History Surgery Date(Month/Year) 2 C-sections Fractured coccyx Gallbladder 2 carpal tunnel surgeries each wrist
--- OUTSIDE RECORDS SUMMARY | 2024-06-12 12:17 | XMS_ITS | Encounter Summary ---
Author Organization [employer] Address 75 [facility] 7t [place] [address] Care Team Providers Care Staffing Director Name Role Phone Nikki James MD Primary Care Provider [phone]- [phone] Mary Rain PharmD Unavailable Gerson Briggs Unavailable [phone] Babatunde Cornejo DO Unavailable [phone] Delaney Cantu Unavailable Encounter Details Date Type Department Care Team (Late st Contact Info) Description 11/10/2022 Orders Only [facility] MEDICINE 230 [place] [address] Lisbeth Taylor LPN Social History Tobacco Use Types Packs/Day Years [...] on filedocumented in this encounter Care Teams Staffing Director Relationship Specialty Start Date End Date Nikki James MD [address] [place] [address] [phone] PCP - General Family Medicine 04/24/18 Mary Rain, PharmD [address] [place] [address] [phone] Pharmacist Internal Medicine 01/26/23 Gerson Briggs 5 [place] [address] Pulmonary Disease 04/08/24 Babatunde Cornejo DO 22 [place] [address] Endocrinology 04/08/24 Delaney Cantu [address] [place] [address] Dermatology 04/08/24 Dr. Bravo [facility] Orthopedics [address] [place] [address] Orthopaedic Surgery 05/15/24 documented as of this encounter
--- OUTSIDE RECORDS SUMMARY | 2024-06-12 12:17 | XMS_ITS | Encounter Summary ---
Author Organization [employer] Address 75 [facility] 7t [place] [address] Care Team Providers Care Turbo Generator Oiler Name Role Phone Nikki James MD Primary Care Provider [phone]- [phone] Mary Rain PharmD Unavailable Gerson Briggs Unavailable [phone] Shelby, Babatunde Babb DO Unavailable [phone] Delaney Cantu Unavailable Reason for Visit * Reason Comments Med Refill Encounter Details Date Type Department Care Team (Late st Contact Info) Description 04/25/2023 Refill [facility] 230 [place] [address] Pauline Berger MD [address] [place] [address] [phone] Social History Tobacco Use Types Packs/Day Years [...] documented as of this encounter Care Teams Turbo Generator Oiler Relationship Specialty Start Date End Date Nikki James MD 230 [place] [address] PCP - General Family Medicine 04/24/18 Mary Rain, PharmD 230 [place] [address] Pharmacist Internal Medicine 01/26/23 Gerson Briggs [address] [place] [address] Pulmonary Disease 04/08/24 Babatunde Cornejo DO [address] [place] [address] Endocrinology 04/08/24 Delaney Cantu [address] [place] [address] [address] [place] [address] Dermatology 04/08/24 Dr. Bravo [facility] Orthopedics [address] [place] [address] Orthopaedic Surgery 05/15/24 documented as of this encounter
--- OUTSIDE RECORDS SUMMARY | 2024-06-12 12:17 | XMS_ITS | Encounter Summary ---
Author Organization [employer] Address 75 [facility] 7t [place] [address] Care Team Providers Care Corrugator Operator Name Role Phone Nikki James MD Primary Care Provider [phone] Mary Rain PharmD Unavailable Gerson Briggs Unavailable [phone] Babatunde Cornejo DO Unavailable [phone] Delaney Cantu Unavailable Encounter Details Date Type Department Care Team (Late st Contact Info) Description 10/05/2022 Orders Only [facility] CHC MED & PEDS [address] [place] [address] Alyssa Mehta LPN Social History Tobacco Use Types Packs/Day [...] on filedocumented in this encounter Care Teams Corrugator Operator Relationship Specialty Start Date End Date Nikki James MD 230 [place], [place] [phone] PCP - General Family Medicine 04/24/18 Mary Rain, PharmD 230 [place], [place] [phone] Pharmacist Internal Medicine 01/26/23 Gerson Briggs 5 [place] [address] Pulmonary Disease 04/08/24 Babatunde Cornejo DO 22 [place] [address] Endocrinology 04/08/24 Delaney Cantu [address] [place] [address] Dermatology 04/08/24 Dr. Bravo [facility] Orthopedics [address] [place] [address] Orthopaedic Surgery 05/15/24 documented as of this encounter
--- OUTSIDE RECORDS SUMMARY | 2024-06-12 12:17 | XMS_ITS ---
Author Organization [facility] Address [address] [place] [address] Care Team Providers Care Bottle Labeler Name Role Phone Nikki James MD Primary Care Provider Vania Uzair Elizalde Unavailable [phone] ALLERGIES Allergen (clinical drug ingredient) Drug/Non Drug Allergy documented on EMR Reaction Allergy Type Onset Date Status morphine Morphine Unknown Drug Allergy Active Iodinated contrast media (substance) Iodinated Contrast Media Unknown Drug Allergy Active amoxicillin Amoxicillin Unknown Drug Allergy Act marychuy Substance with beta adrenergic receptor antagonist mechanism of action (substance) beta timothy (uncoded) Unknown Allergy Active REASON FOR VISIT Patient presents today for esophagitis MEDICATIONS Medication SIG (Take, Route, Frequency, Duration) Notes Start Date End Date Status DULoxetine HCl 30 MG TAKE 1 CAPSULE BY MOUTH DAILY Oral for 90 Active Jardiance 10 MG Oral for 90 Ac tive Anoro Ellipta 62.5-25 MCG/ACT INHALE 1 PUFF BY MOUTH DAILY Inhalation for 30 J449,Unavail able Active Vitamin D3 25 MCG (1000 UT) TAKE 1 CAPSU LE BY MOUTH EVERY DAY Oral for 30 M797,Unavail able Active Atorvastatin Calcium 40 MG Oral for 90 Active Naproxen 500 MG Oral for 30 Ac tive Ozempic (0.25 or 0.5 MG/DOSE) 2 MG/3ML Subcutaneous for 28 Act marychuy OneTouch Delica Plus [id number] - USE TO TEST BLOOD SUGAR ONCE DAY for 90 Active Lisinopril 20 MG Oral for 90 I10,Unavaila ble Active Aspirin Low Dose 81 MG TAKE 1 TABLET BY MOUTH EVERY DAY Oral for 90 Active Pantoprazole Sodium 20 MG Oral for 90 Active hydroCHLOROthiazide 25 MG Oral for 90 I10,Un availa ble Active Ozempic (1 MG/DOSE) 4 MG/3ML INJECT 1 MG UNDER THE SKIN EVERY 7 DAYS Subcutaneous for 28 Active hydrOXYzine HCl 25 MG Oral for 30 Active Breztri Aerosphere 160-9-4.8 MCG/ACT INHALE 2 PUFFS BY MOUTH TWICE DAILY Inhalation for 30 Active Montelukast Sodium 10 MG Oral for 90 J4540,U navai lable Active SOCIAL HISTORY Tobacco Use: Social History Observation [...] Active confirmed Gastroesophagea l reflux disease (disorder) (992211046) Problem Heartburn (R12) Active confirmed Heartburn (91071204) VITAL SIGNS BMI 36.39 kg/m2 06/07/2024 Blood pressure systolic 000 mm Hg 06/07/19 25 Blood pressure diastolic 00 mm Hg 025 Height 5 ft 4 in in 06/07/2024 Temperature 97.8 degrees Fahrenheit 06/07/19 25 Weight 212 lbs 06/07/2024 Encounters Encounter Location Date Provider Diagnosis [facility] [address] [facility] [address] [place] [phone] 06/07/2024 Uzair Ruiz Chronic GERD K21.9 and Heartburn R12 ASSESSMENTS Encounter Date Diagnosis Assessment Notes Treatment Notes Treatment Clinical Notes 06/07/2024 Chronic GERD (ICD-10 - K21.9) DO NOT TAKE OZEMPIC FOR 7 DAYS BEFORE THE UPPER ENDOSCOPY DO NOT TAKE JARDIANCE FOR 3 DAYS BEFORE THE UPPER ENDOSCOPY DO NOT TAKE ASPIRIN ON THE DAY OF THE UPPER ENDOSCOPY 06/07/2024 Heartburn (ICD-10 - R12) PLAN OF TREATMENT Treatment Notes Assessment Notes Chronic GERD DO NOT TAKE OZEMPIC FOR 7 DAYS BEFORE THE UPPER ENDOSCOPY DO NOT TAKE JARDIANCE FOR 3 DAYS BEFORE THE UPPER ENDOSCOPY DO NOT TAKE ASPIRIN ON THE DAY OF THE UPPER ENDOSCOPY Future Test Test Name Order Date UPPER GI ENDOSCOPY 06/07/2024 Next Appt Details Provider Name:Uzair Ruiz , 09/02/2024 01:30:00 PM, [address] [place] [address] , [place], [place], [id number],
--- OUTSIDE RECORDS SUMMARY | 2024-06-12 12:17 | XMS_ITS | Encounter Summary ---
Author Organization [employer] Address 75 [facility] 7t [place] [address] Care Team Providers Care Planning And Analysis Manager Name Role Phone Nikki James MD Primary Care Provider [phone]- [phone] Mary Rain PharmD Unavailable Gerson Briggs Unavailable [phone] Babatunde Cornejo DO Unavailable [phone] Delaney Cantu Unavailable Reason for Visit * Reason Onset Date Comments Durable Medical Equipment 07/13/2022 Encounter Details Date Type Department Care Team (Late st Contact Info) Description 07/13/2022 Telephone [facility] MEDICINE 230 [place], [place] [phone] Nikki James MD 230 [place], [place] [phone] Durable Medical Equipment Social History Tobacco Use Types Packs/Day Years Used Date Smoking Tobacco: Never Assessed Comments Unknown Sex and Gender Information Value Date Recorded Sex Assigned at Female 02/21/2022 10:15 AM EDT Legal Sex Female 10:15 AM EDT Gender Identity Female 02/21/2022 10:15 AM EDT Sexual Orientation Straight 02/21/2022 10 :15 AM EDT documented as of this encounter Miscellaneous Notes * Telephone Encounter - Devi Khan - 07/14/2022 2:54 PM EDT RX generated for bed pads * Telephone Encounter - Rui Booth - 07/13/2022 4:19 PM EDT Tc from pt requesting status on script for bed pads send to medline Please contact pt at [phone] documented in this encounter Plan of Treatment Not on file documented as of this encounter Visit Diagnoses Not on filedocumented in this encounter Care Teams Planning And Analysis Manager Relationship Specialty Start Date End Date Nikki James MD 230 [place] [address] PCP - General Family Medicine 04/24/18 Mary Rain PharmD [address] [place] [address] Pharmacist Internal Medicine 01/26/23 Gerson Briggs [address] [place] [address] Pulmonary Disease 04/08/24 Babatunde Cornejo DO 22 [place] [address] Endocrinology 04/08/24 Delaney Cantu [address] [address] Dermatology 04/08/24 Dr. Bravo [facility] Orthopedics [address] [place] [address] Orthopaedic Surgery 05/15/24 documented as of this encounter
--- OUTSIDE RECORDS SUMMARY | 2024-06-12 12:17 | XMS_ITS | Encounter Summary ---
Author Organization [employer] Address 75 [facility] 7t [place] [address] Care Team Providers Care Drawer In Jacquard Loom Name Role Phone Nikki James MD Primary Care Provider [phone]- [phone] Mary Rain PharmD Unavailable [phone] Gerson Briggs Unavailable [phone] Babatunde Cornejo DO Unavailable [phone] Delaney Cantu Unavailable Encounter Details Date Type Department Care Team (Late st Contact Info) Description 05/15/2024 Telephone [facility] MEDICINE 230 [place], [place] [phone] Nikki James MD 230 [place], [place] [phone] Social History Tobacco Use Types Packs/Day Years [...] encounter Miscellaneous Notes * Telephone Encounter - Nikki James MD - 05/15/2024 2:14 PM EST Error documented in this encounter Plan of Treatment Not on file documented as of this encounter Goals Goal Patient Goal Type Associated Problems Recent Progress Patient-Stated? Author Blood Pressure < 140/90 Blood Pressure 136/72(2023 11:04 AM EDT) No Piers-Gambl kenn, Mary, PharmD Hemoglobin A1c < 7 Result Component 7.7( 11:33 AM EDT) No Piers-Gambl e, Mary, PharmD documented as of this encounter Visit Diagnoses Not on filedocumented in this encounter Additional Health Concerns Assessment Noted Time PHQ-9 Depression Total Score: 12 024 10:49 AM EDT documented as of this encounter Care Teams Drawer In Jacquard Loom Relationship Specialty Start Date End Date Nikki James MD [address] [place] [address] PCP - General Family Medicine 04/24/18 Mary Rain PharmD 230 [place] [address] Pharmacist Internal Medicine 01/26/23 Gerson Briggs 5 [place] [address] Pulmonary Disease 04/08/24 Babatunde Cornejo DO 22 [place] [address] Endocrinology 04/08/24 Delaney Cantu [address] [place] [address] Dermatology 04/08/24 Dr. Bravo [facility] Orthopedics [address] [place] [address] Orthopaedic Surgery 05/15/24 documented as of this encounter
--- OUTSIDE RECORDS SUMMARY | 2024-06-12 12:17 | XMS_ITS | Encounter Summary ---
Author Organization [employer] Address 75 [facility] 7t [place] [address] Care Team Providers Care Vehicle Body Builder Name Role Phone Nikki James MD Primary Care Provider [phone]- [phone] Mary Rain PharmD Unavailable Gerson Briggs Unavailable [phone] Babatunde Cornejo DO Unavailable [phone] Delaney Cantu Unavailable Reason for Visit * Reason Onset Date Comments Referral 02/15/2023 Encounter Details Date Type Department Care Team (Late st Contact Info) Description 02/15/2023 Telephone [facility] MEDICINE 230 [place], [place] [phone] Nikki James MD 230 [place], [place] [phone] Referral Social History Tobacco Use Types Packs/Day Years [...] encounter Miscellaneous Notes * Telephone Encounter - Joann Jama - 02/15/2023 11:12 AM EDT Tc from pt requesting a new referral on Neuro specialist due to headaches and aneurysm historial. [facility] Neurology [facility] [address] [place] [address] documented in this encounter Plan of Treatment Not on file documented as of this encounter Goals Goal Patient Goal Type Associated Problems Recent Progress Patient-Stated? Author Blood Pressure < 140/90 Blood Pressure 136/72(2023 11:04 AM EDT) No Mary Forbes, PharmD Hemoglobin A1c < 7 Result Component 7.7( 11:33 AM EDT) No DawoodsRoseline Reasa, PharmD documented as of this encounter Visit Diagnoses Not on filedocumented in this encounter Additional Health Concerns Assessment Noted Time PHQ-9 Depression Total Score: 10 023 11:39 AM EDT documented as of this encounter Care Teams Vehicle Body Builder Relationship Specialty Start Date End Date Nikki James MD [address] [place] [address] PCP - General Family Medicine 04/24/18 Mary Rain, Kisha 230 [place] [address] Pharmacist Internal Medicine 01/26/23 Gerson Briggs 5 [place] [address] Pulmonary Disease 04/08/24 Babatunde Cornejo DO 22 [place] [address] Endocrinology 04/08/24 Delaney Cantu [address] [place] [address] Dermatology 04/08/24 Dr. Bravo [facility] Orthopedics 300 [facility] [address] Orthopaedic Surgery 05/15/24 documented as of this encounter
--- OUTSIDE RECORDS SUMMARY | 2024-06-12 12:17 | XMS_ITS | Encounter Summary ---
Author Organization [employer] Address 75 [facility] 7t [place] [address] Care Team Providers Care Hydrometeorology Teacher Name Role Phone Nikki James MD Primary Care Provider [phone]- [phone] Mary Rain PharmD Unavailable Gerson Briggs Unavailable [phone] Babatunde Cornejo DO Unavailable [phone] Delaney Cantu Unavailable Encounter Details Date Type Department Care Team (Late st Contact Info) Description 05/10/2022 Orders Only [facility] CHC MED & PEDS [address] [place] [address] Alyssa Mehta LPN Social History Tobacco Use [...] on filedocumented in this encounter Care Teams Hydrometeorology Teacher Relationship Specialty Start Date End Date Nikki James MD 230 [place], [place] [phone] PCP - General Family Medicine 04/24/18 Mary Rain, PharmD 230 [place], [place] [phone] Pharmacist Internal Medicine 01/26/23 Gerson Briggs 5 [place] [address] Pulmonary Disease 04/08/24 Babatunde Cornejo DO 22 [place] [address] Endocrinology 04/08/24 Delaney Cantu [address] [place] [address] Dermatology 04/08/24 Dr. Bravo [facility] Orthopedics [address] [place] [address] Orthopaedic Surgery 05/15/24 documented as of this encounter
--- OUTSIDE RECORDS SUMMARY | 2024-06-12 12:17 | XMS_ITS | Encounter Summary ---
Author Organization [employer] Address 75 [facility] 7t [place] [address] Care Team Providers Care Imaging Scheduler Name Role Phone Nikki James MD Primary Care Provider [phone] Mary Rain PharmD Unavailable Gerson Briggs Unavailable [phone] Babatunde Cornejo DO Unavailable [phone] Delaney Cantu Unavailable Encounter Details Date Type Department Care Team (Late st Contact Info) Description 06/02/2022 Abstract [facility] MEDICINE 230 [place], [place] [phone] Nikki James MD 230 [place], [place] [phone] Social History Tobacco Use Types Packs/Day Years [...] on file documented as of this encounter Procedures Procedure Name Priority Date/Time Associated Diagnosis Comments MAMMOGRAPHY Routine 11/06/2020 COLONOSCOPY Routine 09/15/2017 PAP SMEAR Routine 12/26/2014 12:00 AM EDT documented in this encounter Results * Mammography (11/06/2020) HM Mammogram normal Anatomical Region Laterality Modality Other Historical Provider HEALTH MAINTENANCE Final Result * Colonoscopy (09/15/2017) Colonoscopy normal with Dr. Oliver Historical Provider HEALTH MAINTENANCE Final Result * Pap Smear (12/26/2014 12:00 AM EDT) Swab Historical Provider LAB CYTOLOGY ORDERABLES F inal Result IMAGING documented in this encounter Visit Diagnoses Not on filedocumented in this encounter Care Teams Imaging Scheduler Relationship Specialty Start Date End Date Nikki James MD 230 [place] [address] PCP - General Family Medicine 04/24/18 Mary Rain, ElishaD [address] [place] [address] Pharmacist Internal Medicine 01/26/23 Gerson Briggs [address] [place] [address] Pulmonary Disease 04/08/24 Babatunde Cornejo DO 22 [place] [address] Endocrinology 04/08/24 Delaney Cantu [address] [place] [address] Dermatology 04/08/[address] [facility] Orthopedics [address] [place] [address] Orthopaedic Surgery 05/15/24 documented as of this encounter
== END 2024-06-12 12:00 | disposition home or self-care (01) ==
PROVIDERS: PCP Family Medicine; Visit Provider Hospitalist
DX: J45.50 Severe persistent asthma, uncomplicated (principal); K21.9 Gastro-esophageal reflux disease without esophagitis; L30.9 Dermatitis, unspecified; R74.8 Abnormal levels of other serum enzymes
CPT/HCPCS: 99214

== ENCOUNTER 2024-06-12 11:39 | Outpatient (REF) | payer OTHER, SELFPAY ==
[2024-06-12 12:23] LABS: MANUAL DIFF FLAG NO
[2024-06-12 12:36] LABS: Basophils Percent Auto 0.6 % (0-2); Eosinophils Absolute Auto 0.4 X10*3/uL (0.0-0.4); Eosinophils Percent Auto 6.2 % (0-4); Hematocrit 42.5 % (37.0-47.0); Hemoglobin 13.6 g/dl (12.0-16.0); Imm Gran Abs Auto 0.01 X10*3/uL (0.00-0.03); Imm Gran Pct Auto 0.1 % (0.0-0.4); Lymphocytes Absolute Auto 2.3 X10*3/uL (1.2-4.9); Lymphocytes Percent Auto 31.9 % (20-40); Mean Corpuscular Hemoglobin 26.7 pg (27.0-33.0); Mean Corpuscular Volume 83.3 fL (80.0-98.0); Mean Platelet Volume 9.7 fL (9.4-12.3); Monocytes Absolute Auto 0.4 X10*3/uL (0.1-1.2); Monocytes Percent Auto 5.4 % (2-11); Neutrophils Absolute Auto 3.9 x10*3/uL (2.0-8.3); Neutrophils Percent Auto 55.8 % (45-73); Platelet Count 234 X10*3/uL (160-400); Red Cell Distribution Width 14.8 % (11.0-16.0); White Blood Count 7.1 X10*3/uL (4.8-10.8)
--- OUTSIDE RECORDS SUMMARY | 2024-06-12 12:37 | XMS_ITS | Encounter Summary ---
Author Organization [employer] Address 75 [facility] 7t [place] [address] Care Team Providers Care Animal Ecologist Name Role Phone Nikki James MD Primary Care Provider [phone]- [phone] Mary aRin PharmD Unavailable [phone] Gerson Briggs Unavailable [phone] Babatunde Cornejo DO Unavailable [phone] Delaney Cantu Unavailable Reason for Visit * Reason Onset Date Comments Nurse Triage 05/16/2023 Encounter Details Date Type Department Care Team (Late st Contact Info) Description 05/16/2023 Telephone [facility] MEDICINE [address] [place], [place] [phone] Nikki James MD [address] [place], [place] [phone] Nurse Triage Social History Tobacco Use Types [...] 05/16/2023 12:32 PM EST Triage call with [place] cloth bleaching supervisor [id number] Pt reports positive Covid test 05/10/23. Pt [...] The caller accepted this outcome Patient speaks kinyarwanda documented in this encounter Plan of Treatment [...] documented as of this encounter Care Teams Animal Ecologist Relationship Specialty Start Date End Date Nikki James MD [address] [place], [place] [phone] PCP - General Family Medicine 04/24/18 Mary Rain, PharmD [address] [place] [address] Pharmacist Internal Medicine 01/26/23 Gerson Briggs [address] [place] [address] Pulmonary Disease 04/08/24 Babatunde Cornejo DO 22 [place] [address] Endocrinology 04/08/24 Delaney Cantu [address] [place] [address] Dermatology 04/08/[address] [facility] [address] [place] [address] Orthopaedic Surgery 05/15/24 documented as of this encounter
--- OUTSIDE RECORDS SUMMARY | 2024-06-12 12:37 | XMS_ITS | Clinical Summary ---
Author Organization [employer] Address 75 [facility] 7t [place] [address] Care Team Providers Care Migration Specialist Name Role Phone Nikki James MD Primary Care Provider [phone] Mary Rain PharmD Unavailable Gerson Briggs Unavailable [phone] Babatunde Cornejo DO Unavailable [phone] Delaney Cantu Unavailable Allergies Active Allergy [...] complication, without long-term current use of insulin ([facility]) Take 1 tablet by mouth once daily 30 tablet 3 024 Active atorvastatin (Lipitor) 40 MG tabletIndication s:Type 2 diabetes mellitus without complication, without long-term current use of insulin ([facility]) Take 1 tablet (40 mg) by mouth [...] complication, without long-term current use of insulin ([facility]) Use as directed to monitor glucose ever 8 hours. Replace sensor every 14 days. 2 each 024 Active glucose blood (FreeStyle Precision Reza Test) test stripIndications :Type 2 diabetes mellitus without complication, without long-term current use of insulin ([facility]) Test blood sugar q 8 hours 100 [...] 3 024 Active Lancets (OneTouch Delica Plus [id number]) miscIndications: Type 2 diabetes mellitus without complication, without long-term current use of insulin ([facility]) USE TO TEST BLOOD SUGAR ONCE A [...] be different from the original. Enrolled in [facility] DM clinic with Mary Rain, ElishaD, [facility] House Painter Helper: Devi Diet Attendant Agency: [employer] Problem Noted Date Diagnosed Date Right knee pain 05/15/2024 Overview (05/15/2024): -s/p right knee LMT 05/03/[address] Bravo of [facility] Class 2 drug-induced obesity with [...] considered to be 1.7 or 2.4 mg jail. -f/u in 2 months. Assessment & Plan [...] considered to be 1.7 or 2.4 mg jail. -f/u in 2 months. Dermatitis 12/28/2023 Thyroid [...] least three times. She was followed by [facility] and was last seen for her final visit Feb 2011. Her care was transferred to [facility] who she sees for her chronic [...] least three times. She was followed by [facility] and was last seen for her final visit Feb 2011. Her care was transferred to [facility] who she sees for her chronic [...] least three times. She was followed by [facility] and was last seen for her final visit Feb 2011. Her care was transferred to [facility] who she sees for her chronic headaches and last saw Dec 2014. Topamax is 50 bid. She is now on gabapentin 100mg bid. Other specified health status 01/11/2023 Overview (04/08/2024): -next physical exam due after 02/11/25 -followed by Dr. García Wei of [facility] -dental home is [facility] -filed healthcare proxy on 07/17/2023 Assessment & Plan (02/12/2024 10:51 AM EDT): -next physical exam due after 02/11/25 -followed by Dr. García Wei of [facility] -dental home is [facility] -Filed healthcare proxy on 07/17/2023 Assessment & Plan (07/17/2023 11:31 AM EDT): -next physical exam due after 01/19/2024 -eye care facilitated by Dr. Archibald -[facility] is [facility] -Filed healthcare proxy on 07/17/2023 Assessment & Plan (01/18/2023 11:55 AM EDT): -next physical exam due after 01/19/2024 -eye care facilitated by Dr. Archibald -[facility] is Transam[facility] 12/14/2022 Overview (04/09/2024): Diagnosis: Likely [...] considered to be 1.7 or 2.4 mg jail. -follow-up in 2 months. Assessment & Plan [...] considered to be 1.7 or 2.4 mg jail. -follow-up in 2 months. Assessment & Plan [...] lifestyle modifications -Continue current medications -Interested in ozTranSwitch , referred to [facility] [...] face and neck, under the care of Development Planner Dr. Cantu. Last note available from Dr [...] Department Care Team Description 06/11/2024 Orders Only [facility] MEDICINE [address] [place] [address] Jenna Walter MD Labial cyst (Primary Dx) 06/06/2024 Telephone [facility] MEDICINE [address] [place] [address] Nikki James MD Nurse Triage 05/29/[address] [facility] [address] [place] [address] Nikki James MD Pain 05/15/2024 Telephone [facility] [address] [place] [address] Nikki James MD 05/06/[address] [facility] [address] [place] [address] Cierra Toussaint [place] Durable Medical Equipment 05/06/[address] [facility] [address] [place] [address] Cierra Toussaint MA 05/02/2024 Telephone [facility]S [address] [place] [address] Cierra Toussaint [place] Durable Medical Equipment 04/29/2024 Telephone [facility] MEDICINE [address] [place] [address] Nikki James MD 04/10/[address] [phone] Nikki James MD No Show 04/05/2024 Orders Only [facility] MEDICINE [address] [place] [address] Nikki James MD from Last 3 Months [...] EST Narrative 04/15/2024 3:59 PM EST ? [facility] ? [address] ?[place] [address] ? Mammography Report ? Signed ? Patient: Toussaint,Ruthie ?MR#: [id number] ?? 6 ? : 1965 ?Acct:[id number] ? Age/Sex: 58 / F ?ADM Date: 12/13/24 ? Loc: HO.MAMMO ? Attending Dr: Nikki James MD ? Ordering Physician: Nikki James MD ?Results: 1N ?? egative ? Date of Service: 04/05/24 ?Follow Up: 1 Year From Orig ?? inal Mammogram ? Procedure(s): MM tomosynthesis screening BI ?? Accession Number(s): [id number] ? cc: Nikki James MD ? EXAMINATION: [...] DD/ 1300 ? TD/TT: 04/05/24 1318 ? Cessation Systems Outreach Specialist: ? Procedure Note Dondeniceter, Image - 04/15/2024 [facility] [address] [place] [address] Mammography Report Signed Patient: Sameera Toussaint#: [id number] 6 : 1965Acct:[id number] Age/Sex: 58 / FADM Date: 04/05/24 Loc: HO.MAMMO Attending Dr: Nikki James MD Ordering Physician: Nikki James MDResults: 1N egative Date of Service: 04/05/24Follow Up: 1 Year From Orig inal Mammogram Procedure(s): MM tomosynthesis screening BI Accession Number(s): [id number] cc: Nikki James MD EXAMINATION: MM SCREENING [...] 04/15/24 1556 DD/ 1300 TD/TT: 04/05/24 1318 Cessation Systems Outreach Specialist: Nikki James MD IMG BI PROCEDURES Final Re sult * Albumin, Random Urine W/Creatinine (02/12/2024 11:45 AM EDT) Creatinine, Urine 100.78 mg/dL [facility] Microalbumin Urine 7.0 mg/L [facility] Microalbum Creatinine Ratio Ur 6.9 <30 ug/mg cr [facility] Comment:Albumin/Creatinine R atio Reference Ranges: Normal: < 30 ug/mg creatinine Microalbuminuria: 30 - 300 ug/mg creatinineClinical Albuminuria: > 300 ug/mg creatinine Urine 02/12/2024 11:4 5 AM EDT 02/12/2024 1:10 PM EDT Nikki James MD LAB URINE ORDERABLES Final Result Performing Organization Address City/State/[facility] Co de Phone Number [facility] [address] [place] [phone] * (ABNORMAL) Hemoglobin A1c (02/12/2024 11:33 AM EDT) Hemoglobin A1c 7.7(H) <6.0 % [facility] Comment:Hemoglobin A1C Refer ence Range Adults: 4.8 - 6.0 % Non diabetic: < 6.0 % Goal: < 7.0 %Additional Action Suggested: > 8.0 %Note: Hemoglobin A1c results are invalid for patients with abnormal amounts of HbF. Blood transfusions may impact the HbA1c concentration in the patient sample. Estimated Average Glucose 174 mg/dL [facility] Comment:eAG = Estimated ave rage glucose which is %A1C expressed asaverage glucose, using the formula of the F5O-HafiahnInswpsj Glucose study (ADAG), Diabetes Care, Vol.31,#8,Nov. 2007 Blood Venous blood specimen / Unknown 02/12/2024 11:33 AM EDT 02/12/2024 1:19 PM EDT Nikki James MD LAB BLOOD ORDERABLES Final Result Performing Organization Address [facility] Co de Phone Number [facility] [address] [place] [address] [phone] * Lipid Panel, Standard (02/12/2024 11:33 AM EDT) Triglycerides 86 <150 mg/dL [facility] Comment:Desirable Triglyceri de: less than 150 mg/dLBorderline High Triglyceride 150-199 mg/dLHigh Triglyceride: 200-499 mg/dLVery High Triglyceride: greater than or equal to 5OO mg/dL Cholesterol 159 <200 mg/dL [facility] Comment:Desirable Cholestero l: less than 200 mg/dLBorderline High Cholesterol: 200-239 mg/dLHigh Cholesterol: greater than 239 mg/dL LDL Cholesterol Calculated 86 <100 mg/dL [facility] Comment:Desirable LDL: less than 100 mg/dLNear Optimal/Above Optimal LDL: 110- 129 mg/dLBorderline High LDL: 130-159 mg/dLHigh LDL: 160-189 mg/dLVery High LDL: greater than or equal to 190 mg/dL HDL Cholesterol 56 >40 mg/dL [facility] Comment:Desirable HDL: great er than 40 mg/dL Note: This HDL assay may give artificially low results in patients with liver disease. Blood Venous blood specimen / Unknown 02/12/2024 11:33 AM EDT 02/12/2024 1:37 PM EDT Nikki James MD LAB BLOOD ORDERABLES Final Result Performing Organization Address [facility]/ZIP Co de Phone Number [facility] [address] [place] [address] [phone] * HIV 1/2 ANTIGEN/ANTIBODY,FOURTH GENERATION W/RFL (05/31/2021 1:02 PM EST) HIV-1/2 ANTIGEN AND ANTIBODIES, 4TH GENERATION W/ REFLEX NON-REACT MARTIN NON-REACT MARTIN [facility] Comment: HIV-1 antigen and HIV-1/HIV-2 [...] ? For additional information please refer to http://education.[employer]faq/SOB685 (This link is being provided for informational/ educational purposes only.) ? The performance of this assay has not been clinically validated in patients less than 2 years old. ?? 05/31/2021 1:02 PM EST Nikki James MD LAB BLOOD ORDERABLES Final Result Performing Organization Address City/State/[facility] Co de Phone Number [facility] [address] * HPV E6/E7 RFLX ESTEE 16 18/45 (01/23/2020 2:02 PM EDT) HPV 16 RNA [facility] HPV 18/45 RNA [facility] HPV E6 E7 ADD [facility] HPV mRNA E6/E7 Not Detected Not Detected [facility] Comment: This test was performed using the APTIMA HPV Assay ([employer] This assay detects E6/E7 viral messenger RNA (mRNA) from 14 high-risk HPV types (16,18,31,33,35,39,45,51,52,56,58,59,66,68). The analytical performance characteristics of this assay have been determined by [employer]. The modifications have not been cleared or approved by the FDA. This assay has been validated pursuant to the CLIA regulations and is used for clinical purposes. THIS TEST WAS PERFORMED AT: [facility] [address] [place] [address],[address] [place], [place] ??[phone] CASSIE VANCE MD 01/23/2020 2:02 PM EDT Jessica Grace HISTORICAL/NON ORDERABLE LABS Fi nal Result [facility] [address] [place] [phone], * HM Hepatitis C Antibody (08/13/2018) Hepatitis C Antibody Nonreactive Blood Historical Provider MD HEALTH MAINTENANCE Final Result * Hm Colonoscopy (09/15/2017) Colonoscopy normal with Dr. Oliver Historical Provider HEALTH MAINTENANCE Final Result * Pap Smear (12/26/2014 12:00 AM EDT) Swab Historical Provider MD LAB CYTOLOGY ORDERABLES F inal Result IMAGING from Last 3 Months or Most Recently Relevant to Health Maintenance Insurance [facility] Advance Directives Documents on File Type Date Recorded Patient Night Time Nanny Expl anation Advance Directives and Livin g Will 07/17/2023 Health Care Proxy Care Teams Migration Specialist Relationship Specialty Start Date End Date Nikki James MD [address] [place] [address] PCP - General Family Medicine 04/24/18 Mary Rain, ElishaD [address] [place] [address] Pharmacist Internal Medicine 01/26/23 Gerson Briggs [address] [place] [address] Pulmonary Disease 04/08/24 Babatunde Cornejo DO [address] [place] [address] Endocrinology 04/08/24 Delaney Cantu [address] [facility] [address] [place] [address] Dermatology 04/08/24 Dr. Bravo [facility] [address] [place] [address] Orthopaedic Surgery 05/15/24
--- OUTSIDE RECORDS SUMMARY | 2024-06-12 12:37 | XMS_ITS | Encounter Summary ---
Author Organization [employer] Address 75 [facility] 7t [place] [address] Care Team Providers Care Mobile Home Set Up Person Name Role Phone Nikki James MD Primary Care Provider [phone] Mary Rain PharmD Unavailable [phone] Gerson Briggs Unavailable [phone] Babatunde Cornejo DO Unavailable [phone] Delaney Cantu Unavailable Reason for Visit * Reason Onset Date Comments Nurse Triage 06/06/2024 Encounter Details Date Type Department Care Team (Late st Contact Info) Description 06/06/2024 Telephone [facility] MEDICINE [address] [place], [place] [phone] Nikki James MD [address] [place], [place] [phone] Nurse Triage Social History Tobacco Use Types [...] EST Doesn't look like pt went to [facility] or [facility] ED. I do see however a surgical day care scheduled encounter in [facility] possibly for this. Telephone call placed to [...] in size per pt. Pt states called [facility] (she sees Jessica Grace CNM) to make [...] RN - 06/06/2024 3:43 PM EST No television engineering teacher needed as this verse writer speaks Sinhala. Call returned to Ruthie Toussaint to triage below. Reports having a lump on left labia x 1 month. Per pt having discharge and tender to touch. Per ptpurulent discharge. Denies any fever. Pt offered WIC for tomorrow as no sick on site. Pt states only looking for Referral to [facility] to have Jessica Grace CNM [...] documented as of this encounter Care Teams Mobile Home Set Up Person Relationship Specialty Start Date End Date Nikki James MD [address] [place] [address] PCP - General Family Medicine 04/24/18 Mary Rain PharmD [address] [place] [address] Pharmacist Internal Medicine 01/26/23 Gerson Briggs [address] [place] [address] Pulmonary Disease 04/08/24 Babatunde Cornejo DO [address] [place] [address] Endocrinology 04/08/24 Delaney Cantu [address] [place] [address] Dermatology 04/08/24 Dr. Bravo [facility] [address] [place] [address] Orthopaedic Surgery 05/15/24 documented as of this encounter
--- OUTSIDE RECORDS SUMMARY | 2024-06-12 12:37 | XMS_ITS | Clinical Summary ---
Author Organization [facility] Address [address] [place] [address] Care Team Providers Care Hide Buffer Name Role Phone Unavailable Primary Care Provider [...]
--- OUTSIDE RECORDS SUMMARY | 2024-06-12 12:37 | XMS_ITS | Encounter Summary ---
Author Organization [employer] Address 75 [facility] 7t [place] [address] Care Team Providers Care Body Bumper Name Role Phone Nikki James MD Primary Care Provider [phone] Mary Rain PharmD Unavailable Gerson Briggs Unavailable [phone] Babatunde Cornejo DO Unavailable [phone] Delaney Cantu Unavailable Reason for Referral * Consultation (STAT) - Pending Review Specialty Diagnoses / Procedures Referred By Conteliana t Referred To Contact Obstetrics and Gynecology Diagnoses Labial cyst Jenna Walter MD [address] [place] [address] Phone: tel: fax: Referral ID Status Reason Start Date Expiration Date Visits Requested Visits Authorized [id number] Pending Review Specialty Services Required 06/11/2024 06/11/2025 1 1 Encounter Details Date Type Department Care Team (Late st Contact Info) Description 06/11/2024 Orders Only [facility] MEDICINE [address] [place] [address] Jenna Walter MD [address] [place] [address] Labial cyst (Primary Dx) Social History Tobacco [...] documented as of this encounter Care Teams Body Bumper Relationship Specialty Start Date End Date Nikki James MD [address] [place] [address] PCP - General Family Medicine 04/24/18 Mary Rain, Kisha [address] [place] [address] Pharmacist Internal Medicine 01/26/23 Gerson Briggs [address] [place] [address] Pulmonary Disease 04/08/24 Babatunde Cornejo DO [address] [place] [address] Endocrinology 04/08/24 Delaney Cantu [address] [address] Dermatology 04/08/24 Dr. Bravo [facility] [address] [place] [address] Orthopaedic Surgery 05/15/24 documented as of this encounter
--- OUTSIDE RECORDS SUMMARY | 2024-06-12 12:37 | XMS_ITS | Encounter Summary ---
Author Organization [employer] Address 75 [facility] 7t [place] [address] Care Team Providers Care Staff Pharmacist Hospital Name Role Phone Nikki James MD Primary Care Provider [phone] Mary Rain PharmD Unavailable Gerson Briggs Unavailable [phone] [place], Babatunde Babb DO Unavailable [phone] Delaney Cantu Unavailable Reason for Visit * Reason Comments Med Refill Encounter Details Date Type Department Care Team (Late st Contact Info) Description 04/25/2023 Refill [facility] [address] [place] [address] Pauline Berger MD [address] [place] [address] [phone] Social History Tobacco Use Types Packs/Day Years [...] documented as of this encounter Care Teams Staff Pharmacist Hospital Relationship Specialty Start Date End Date Nikki James MD [address] [place] [address] PCP - General Family Medicine 04/24/18 Mary Rain, PharmD [address] [place] [address] Pharmacist Internal Medicine 01/26/23 Gerson Briggs [address] [place] [address] Pulmonary Disease 04/08/24 Babatunde Cornejo DO [address] [place] [address] Endocrinology 04/08/24 Delaney Cantu [address] [place] [address] [address] [place] [address] Dermatology 04/08/[address] [facility] [address] [place] [address] Orthopaedic Surgery 05/15/24 documented as of this encounter
--- OUTSIDE RECORDS SUMMARY | 2024-06-12 12:37 | XMS_ITS | Encounter Summary ---
Author Organization [email or web address] Address 75 [facility] 7t [place] [address] Care Team Providers Care Graphics Manager Name Role Phone Nikki James MD Primary Care Provider [phone] Mary Rain PharmD Unavailable Gerson Briggs Unavailable [phone] Babatunde Cornejo DO Unavailable [phone] Delaney Cantu Unavailable Reason for Visit * Reason Onset Date Comments Med Refill 05/29/2024 Encounter Details Date Type Department Care Team (Late st Contact Info) Description 05/29/2024 Refill [facility] [address] [place] [address] Nikki James MD [address] [place] [address] Pain Social History Tobacco Use Types Packs/Day [...] documented as of this encounter Care Teams Graphics Manager Relationship Specialty Start Date End Date Nikki James MD [address] [place] [address] PCP - General Family Medicine 04/24/18 Mary Rain PharmD [address] [place] [address] Pharmacist Internal Medicine 01/26/23 Gerson Briggs [address] [place] [address] Pulmonary Disease 04/08/24 Babatunde Cornejo DO [address] [place] [address] Endocrinology 04/08/24 Delaney Cantu [address] [place] [address] Dermatology 04/08/24 Dr. Bravo [facility] [address] [facility] [address] Orthopaedic Surgery 05/15/24 documented as of this encounter
--- OUTSIDE RECORDS SUMMARY | 2024-06-12 12:37 | XMS_ITS | Continuity of Care Document ---
Author Organization [facility] 2nd [facility] Address [address] [place] [address] Care Team Providers Care Sash Clamp Operator Name Role Phone JOHN, INÉS Primary Care Provider Assessment No assessment recorded. Plan of Treatment Reminders Order Date Submit Date Provider Last Modified By Organization Details Last Modified Time Details Appointments None recorded. Lab None recorded. Referral physical therapist referral - VMO Strengthe casie, Hip Abductor, Glute Med Strengthe casie, Quad & Hamstring Stretchin g, Patella Mobilizat ion, Kincaid Taping at your discretio n. 2024 025 [facility], [address] [place] [address], [address], 5 09:38:28 Procedures None recorded. Surgeries None recorded. Imaging None recorded. Medication Orders None recorded. Patient TargetsNo targets recorded. Patient InstructionsNo instructions recorded. Reason for Referral Physical Therapist Referral for History of arthroscopy of knee joint VMO Strengthening, Hip Abductor, Glute Med Strengthening, Quad & Hamstring Stretching, Patella Mobilization, Kincaid Taping at your discretion. Referring Physician: Dominik Oliver, Orthopedic Surgery, Encounter Date: 05/14/2024 Problems Name Problem SNOMED Code Status Onset Date Resolution Date Notes Provider Name and Address Organization Details Recorded Time Lumbar radiculopat hy 234847591 Active 2023 ALIA rubi [place] - [facility] 4 13:33:58 Tear of lateral meniscus of knee 310939242 Active 2023 THONG rubi [place] - [facility] 4 12:27:25 Acute tear of lateral meniscus of right knee 6041734678524 9100 Active 2023 THONG GREWAL [facility] 4 12:29:09 Problem Notes None recorded. Procedures Surgical History Date Name Laterality Status Provider Name and Address Organization Details Recorded Time 11/23/2023 Sports Knee 4&1 completed David Florentino MD [address] [facility] [address], [place], [address], Health system 11/23/2023 13:41:58 Imaging Results None recorded. Procedure Notes None recorded. Medical Equipment None Reported. Allergies Allergen ID Allergen Name Allergen Category Reaction Reaction Severity Criticality Documentation Date Start Date Code Code System Note Provider Name and Address Organization Details Recorded Time 633241 amoxicill in medicatio n Not available Not available Not available 11/23/2023 723 [facility] 4 13:26:38 067786 Product containin g penicilli n (product) medicatio n Not available Not available Not available 11/23/2023 85342 8001 [facility]ED [facility] 4 13:26:44 369786 Iodinated contrast media (substanc e) medicatio n Not available Not available Not available 11/23/2023 30143 2003 [facility]ED [facility] 4 13:26:51 720216 morphine medicatio n Not available Not available Not available 11/23/2023 7052 RxNorm [facility] 4 13:27:02 Medications Name Sig Start Date Stop [...] Updated DateTime 05/14/2024 162.56 cm 38.1 kg/m2 322161.51 g 98 [degF] Dominik Oliver PA-C [address] [facility] [address], [place], [address] , [facility] 05/14/2024 15:51:10 Social History None recorded. Functional Status None recorded. Mental Status None recorded. Family History Nothing Reported. Medical History Condition Response Diabetes Y Stroke Y Asthma Y Hypertension Y Cholesterol Y Gynecological HistoryNo gynecological history recorded. Obstetrics History GPAL:G 0 P 0 0 0 0 Past Encounters Encounter ID Performer Location Encounter Start Date Encounter Closed Date Diagnosis/Indication Diagnosis SNOMED-CT Code Diagnosis ICD10 Code Diagnosis Note [id number] TRACI Benoit 2nd floor [address] [place] [address] 05/14/2024 15:45:41 05/31/2024 09:38:28 History of arthroscopy of knee joint 109245890 Z98.890 Health Concerns Section Related Observation LastModified by Organization Detai ls LastModified Time None Recorded Concern Status LastModified by Organization Details LastModified Time None Recorded Payers Encounter Date Sequence Insurance Name Policy Number Policy Hernández Covered Member ID Hernández Member ID Guarantor Name 05/14/2024 1 [facility] - DOS ON OR AFTER 2022 - ONE CARE (MEDICARE REPLACEMENT/ADV ANTAGE - HMO) Ruthie Toussaint [id number] Ruthie Toussaint Notes Date Note Type Note Provider Name and Address Organization Details Recorded Time 5 text/htm l I am seeing the [...] patient remains symptomatic. Dominik Oliver PA-C [address], [place], [address], [facility] 05/14/2024 16:02:41 OBGyn Episode No OBEpisode recorded.
--- OUTSIDE RECORDS SUMMARY | 2024-06-12 12:37 | XMS_ITS | Encounter Summary ---
Author Organization [email or web address] Address [address] [facility] 7t [place] [address] Care Team Providers Care Deep Submergence Vehicle Crewmember Name Role Phone Nikki James MD Primary Care Provider [phone]- [phone] Mary Rain PharmD Unavailable Gerson Briggs Unavailable [phone] Babatunde Cornejo DO Unavailable [phone] Delaney Cantu Unavailable Encounter Details Date Type Department Care Team (Late st Contact Info) Description 10/21/2023 Orders Only [facility] MEDICINE 230 [place], [place] [phone] Nikki Jamse MD 230 [place], [place] [phone] Social History Tobacco Use Types Packs/Day Years [...] documented as of this encounter Care Teams Deep Submergence Vehicle Crewmember Relationship Specialty Start Date End Date Nikki James MD 230 [place] [address] PCP - General Family Medicine 04/24/18 Mary Rain, PharmD [address] [place] [address] Pharmacist Internal Medicine 01/26/23 Gerson Briggs [address] [place] [address] Pulmonary Disease 04/08/24 Babatunde Cornejo DO [address] [place] [address] Endocrinology 04/08/24 Beverlyjanette Delaney [address] [facility] 1ST [place] [address] Dermatology 04/08/24 Dr. Bravo [facility] Orthopedics [address] [place] [address] Orthopaedic Surgery 05/15/24 documented as of this encounter
--- OUTSIDE RECORDS SUMMARY | 2024-06-12 12:38 | XMS_ITS | Encounter Summary ---
Author Organization [employer] Address [address] [facility] 7t [place] [address] Care Team Providers Care Ophthalmic Photographer Name Role Phone Nikki James MD Primary Care Provider [phone] Mary Rain PharmD Unavailable Gerson Briggs Unavailable [phone] Babatunde Cornejo DO Unavailable [phone] Delaney Cantu Unavailable Encounter Details Date Type Department Care Team (Late st Contact Info) Description 11/10/2022 Orders Only [facility] MEDICINE 230 [place] [address] Lisbeth Taylor LPN Social History Tobacco Use [...] on filedocumented in this encounter Care Teams Ophthalmic Photographer Relationship Specialty Start Date End Date Nikki James MD [address] [place] [address] [phone] PCP - General Family Medicine 04/24/18 Mary Rain, PharmD [address] [place] [address] [phone] Pharmacist Internal Medicine 01/26/23 Gerson Briggs 5 [place] [address] Pulmonary Disease 04/08/24 Babatunde Cornejo DO 22 [place] [address] Endocrinology 04/08/24 Delaney Cantu [address] [place] [address] Dermatology 04/08/24 Dr. Bravo [facility]ics [address] [place] [address] Orthopaedic Surgery 05/15/24 documented as of this encounter
--- OUTSIDE RECORDS SUMMARY | 2024-06-12 12:38 | XMS_ITS | Encounter Summary ---
Author Organization [employer] Address [address] [facility] 7t [place] [address] Care Team Providers Care Veneer Trimmer Name Role Phone Nikki James MD Primary Care Provider [phone]- [phone] Mary Rain PharmD Unavailable [phone] Gerson Briggs Unavailable [phone] Babatunde Cornejo DO Unavailable [phone] Jayme Cantua Unavailable Encounter Details Date Type Department Care Team (Late st Contact Info) Description 04/21/2022 Orders Only [facility] MEDICINE 230 [place] [address] Lisa Navarro RN Social History Tobacco Use [...] on filedocumented in this encounter Care Teams Veneer Trimmer Relationship Specialty Start Date End Date Nikki James MD [address] [place] [address] [phone] PCP - General Family Medicine 04/24/18 Mary Rain, PharmD [address] [place] [address] [phone] Pharmacist Internal Medicine 01/26/23 Gerson Briggs 5 [place] [address] Pulmonary Disease 04/08/24 Babatunde Cornejo DO 22 [place] [address] Endocrinology 04/08/24 Delaney Cantu [address] [place] [address] Dermatology 04/08/24 Dr. Bravo [facility] Orthopedics [address] [place] [address] Orthopaedic Surgery 05/15/24 documented as of this encounter
--- OUTSIDE RECORDS SUMMARY | 2024-06-12 12:38 | XMS_ITS | Encounter Summary ---
Author Organization [employer] Address 75 [facility] 7t [place] [address] Care Team Providers Care Photocomposition Keyboard Operator Name Role Phone Nikki James MD Primary Care Provider [phone] Mary Rain PharmD Unavailable Gerson Briggs Unavailable [phone] Babatunde Cornejo DO Unavailable [phone] Delaney Cantu Unavailable Encounter Details Date Type Department Care Team (Late st Contact Info) Description 05/10/2022 Orders Only [facility] MED & PEDS [address] [place] [address] Alyssa Mehta LPN Social History Tobacco Use [...] on filedocumented in this encounter Care Teams Photocomposition Keyboard Operator Relationship Specialty Start Date End Date Nikki James MD 230 [place], [place] [phone] PCP - General Family Medicine 04/24/18 Mary Rain, PharmD 230 [place], [place] [phone] Pharmacist Internal Medicine 01/26/23 Gerson Briggs 5 [place] [address] Pulmonary Disease 04/08/24 Babatunde Cornejo DO 22 [place] [address] Endocrinology 04/08/24 Delaney Cantu [address] [place] [address] Dermatology 04/08/[address] [facility] Orthopedics [address] [place] [address] Orthopaedic Surgery 05/15/24 documented as of this encounter
--- OUTSIDE RECORDS SUMMARY | 2024-06-12 12:38 | XMS_ITS | Encounter Summary ---
Author Organization [employer] Address 75 [facility] 7t [place] [address] Care Team Providers Care Aircraft Manager Name Role Phone Nikki James MD Primary Care Provider [phone] Mary Rain PharmD Unavailable Gerson Briggs Unavailable [phone] Babatunde Cornejo DO Unavailable [phone] Delaney Cantu Unavailable Encounter Details Date Type Department Care Team (Late st Contact Info) Description 05/15/2024 Telephone [facility] MEDICINE 230 [place], [place] [phone] Nikki James MD 230 [place], [place] [phone] Social History Tobacco Use Types Packs/Day Years [...] documented as of this encounter Care Teams Aircraft Manager Relationship Specialty Start Date End Date Nikki James MD [address] [place] [address] PCP - General Family Medicine 04/24/18 Mary Rain PharmD [address] [place] [address] Pharmacist Internal Medicine 01/26/23 Gerson Briggs 5 [place] [address] Pulmonary Disease 04/08/24 Babatunde Cornejo DO 22 [place] [address] Endocrinology 04/08/24 Delaney Cantu [address] [place] [address] Dermatology 04/08/24 Dr. Bravo [facility] Orthopedics [address] [place] [address] Orthopaedic Surgery 05/15/24 documented as of this encounter
--- OUTSIDE RECORDS SUMMARY | 2024-06-12 12:38 | XMS_ITS | Encounter Summary ---
Author Organization [employer] Address 75 [facility] 7t [place] [address] Care Team Providers Care Broach Setter Name Role Phone Nikki James MD Primary Care Provider [phone] Mary Rain PharmD Unavailable Gerson Briggs Unavailable [phone] Babatunde Cornejo DO Unavailable [phone] Delaney Cantu Unavailable Encounter Details Date Type Department Care Team (Late st Contact Info) Description 06/02/2022 Abstract [facility] MEDICINE 230 [place], [place] [phone] Nikki James MD 230 [place], [place] [phone] Social History Tobacco Use Types Packs/Day Years [...] on filedocumented in this encounter Care Teams Broach Setter Relationship Specialty Start Date End Date Nikki James MD 230 [place] [address] PCP - General Family Medicine 04/24/18 Mary Rain, ElishaD [address] [place] [address] Pharmacist Internal Medicine 01/26/23 Gerson Briggs [address] [place] [address] Pulmonary Disease 04/08/24 Babatunde Cornejo DO 22 [place] [address] Endocrinology 04/08/24 Delaney Cantu [address] [place] [address] Dermatology 04/08/24 Dr. Bravo [facility] Orthopedics [address] [place] [address] Orthopaedic Surgery 05/15/24 documented as of this encounter
--- OUTSIDE RECORDS SUMMARY | 2024-06-12 12:38 | XMS_ITS | Encounter Summary ---
Author Organization [employer] Address [address] [facility] 7t [place] [address] Care Team Providers Care Brass Buffer Name Role Phone Nikki James MD Primary Care Provider [phone] Mary Rain PharmD Unavailable Gerson Briggs Unavailable [phone] Babatunde Cornejo DO Unavailable [phone] Delaney Cantu Unavailable Reason for Visit * Reason Onset Date Comments Durable Medical Equipment 07/13/2022 Encounter Details Date Type Department Care Team (Late st Contact Info) Description 07/13/2022 Telephone [facility] MEDICINE 230 [place], [place] [phone] Nikki James MD 230 [place], [place] [phone] Durable Medical Equipment Social History Tobacco Use [...] send to medline Please contact pt at [phone] documented in this encounter Plan of Treatment Not on file documented as of this encounter Visit Diagnoses Not on filedocumented in this encounter Care Teams Brass Buffer Relationship Specialty Start Date End Date Nikki James MD 230 [place] [address] PCP - General Family Medicine 04/24/18 Mary Rain PharmD [address] [place] [address] Pharmacist Internal Medicine 01/26/23 Gerson Briggs [address] [place] [address] Pulmonary Disease 04/08/24 Babatunde Cornejo DO 22 [place] [address] Endocrinology 04/08/24 Delaney Cantu [address] [address] Dermatology 04/08/24 Dr. Bravo [facility] Orthopedics [address] [place] [address] Orthopaedic Surgery 05/15/24 documented as of this encounter
--- OUTSIDE RECORDS SUMMARY | 2024-06-12 12:38 | XMS_ITS | Encounter Summary ---
Author Organization [employer] Address 75 [facility] 7t [place] [address] Care Team Providers Care Child Care Director Name Role Phone Nikki James MD Primary Care Provider [phone] Mary Rain PharmD Unavailable Gerson Briggs Unavailable [phone] Babatunde Cornejo DO Unavailable [phone] Delaney Cantu Unavailable Reason for Visit * Reason Onset Date Comments Referral 02/15/2023 Encounter Details Date Type Department Care Team (Late st Contact Info) Description 02/15/2023 Telephone [facility] MEDICINE 230 [place], [place] [phone] Nikki James MD 230 [place], [place] [phone] Referral Social History Tobacco Use Types Packs/Day [...] specialist due to headaches and aneurysm historial. [facility] Neurology [facility] [address] [place] [address] documented in this encounter Plan of Treatment [...] documented as of this encounter Care Teams Child Care Director Relationship Specialty Start Date End Date Nikki James MD [address] [place] [address] PCP - General Family Medicine 04/24/18 Mary Rain, Kisha 230 [place] [address] Pharmacist Internal Medicine 01/26/23 Gerson Briggs 5 [place] [address] Pulmonary Disease 04/08/24 Babatunde Cornejo DO 22 [place] [address] Endocrinology 04/08/24 Delaney Cantu [address] [place] [address] Dermatology 04/08/24 Dr. Bravo [facility] Orthopedics [address] [facility] [address] Orthopaedic Surgery 05/15/24 documented as of this encounter
--- OUTSIDE RECORDS SUMMARY | 2024-06-12 12:38 | XMS_ITS | Encounter Summary ---
Author Organization [employer] Address 75 [facility] 7t [place] [address] Care Team Providers Care Receivables Specialist Name Role Phone Nikki James MD Primary Care Provider [phone] Mary Rain PharmD Unavailable Gerson Briggs Unavailable [phone] Babatunde Cornejo DO Unavailable [phone] Delaney Cantu Unavailable Encounter Details Date Type Department Care Team (Late st Contact Info) Description 10/05/2022 Orders Only [facility] CH[facility] MED & PEDS [address] [place] [address] Alyssa Mehta LPN Social History Tobacco Use [...] on filedocumented in this encounter Care Teams Receivables Specialist Relationship Specialty Start Date End Date Nikki James MD 230 [place], [place] [phone] PCP - General Family Medicine 04/24/18 Mary Rain, PharmD 230 [place], [place] [phone] Pharmacist Internal Medicine 01/26/23 Gerson Briggs 5 [place] [address] Pulmonary Disease 04/08/24 Babatunde Cornejo DO 22 [place] [address] Endocrinology 04/08/24 Dealney Cantu [address] [place] [address] Dermatology 04/08/24 Dr. Bravo [facility] Orthopedics [address] [place] [address] Orthopaedic Surgery 05/15/24 documented as of this encounter
[2024-06-12 13:17] LABS: Erythrocyte Sedimentation Rate 16 MM/HR (0-20)
[2024-06-13 09:04] LABS: Immunoglobulin E 208 kU/L (<OR=114)
== END 2024-06-12 11:40 | disposition home or self-care (01) ==
LOC: HO.LAB 11:39
PROVIDERS: PCP Family Medicine; Visit Provider Hospitalist
DX: J44.9 Chronic obstructive pulmonary disease, unspecified (principal); R74.8 Abnormal levels of other serum enzymes; J45.50 Severe persistent asthma, uncomplicated; K21.9 Gastro-esophageal reflux disease without esophagitis; L30.9 Dermatitis, unspecified
CPT/HCPCS: 36415; 82785; 85025; 85652; 99212

== ENCOUNTER 2024-06-27 14:27 | Outpatient (RCR) | payer OTHER, SELFPAY | END 2024-07-10 08:48 | disposition home or self-care (01) | LOC: HO.PT 14:27 | PROVIDERS: PCP Family Medicine; Visit Provider Physician Assistant | DX: Z47.89 Encounter for other orthopedic aftercare (principal) | CPT/HCPCS: 97110; 97162 ==

== ENCOUNTER 2024-09-02 12:07 | Day surgery (SDC) | payer OTHER, SELFPAY ==
--- OUTSIDE RECORDS SUMMARY | 2024-08-22 15:26 | XMS_ITS | Encounter Summary ---
Author Organization [employer] Address [address] [facility] 7t [place] [address] Care Team Providers Care Fitter Machinist Name Role Phone Nikki James MD Primary Care Provider [phone]- [phone] Mary Rain PharmD Unavailable Gerson Briggs Unavailable [phone] Babatunde Cornejo DO Unavailable [phone] Delaney Cantu Unavailable Reason for Visit * Reason Comments Med Refill Encounter Details Date Type Department Care Team (Late st Contact Info) Description 08/02/2024 Refill [facility] MEDICINE 230 [place], [place] [phone] Nikki James MD 230 [place], [place] [phone] Seasonal allergies Social History Tobacco Use Types Packs/Day Years [...] as of this encounter Plan of Treatment Upcoming Encounters Date Type Department Care Team (Late st Contact Info) Description 10/16/2024 11:15 AM EDT Office Visit [facility] MEDICINE [address] [place] [address] Nikki James MD [address] [place] [address] documented as of this encounter Goals Goal Patient Goal Type Associated Problems Recent Progress Patient-Stated? Author Blood Pressure < 140/90 Blood Pressure 136/72(2023 11:04 AM EDT) No Piers-Gambl e, Mary, PharmD Hemoglobin A1c < 7 Result Component 7.7( 11:33 AM EDT) No Piers-Gambl e, Mary, PharmD documented as of this encounter Visit Diagnoses Diagnosis Seasonal allergies Allergic rhinitis, cause unspecified documented in this encounter Additional Health Concerns Assessment Noted Time PHQ-9 Depression Total Score: 12 024 10:49 AM EDT documented as of this encounter Care Teams Fitter Machinist Relationship Specialty Start Date End Date Nikki James MD 230 [place] [address] PCP - General Family Medicine 04/24/18 Mary Rain PharmD 230 [place] [address] Pharmacist Internal Medicine 01/26/23 Gerson Briggs [address] [place] [address] Pulmonary Disease 04/08/24 Babatunde Cornejo DO 22 [place] [address] Endocrinology 04/08/24 Delaney Cantu [address] [place] [address] Dermatology 04/08/24 Dr. Bravo [facility] Orthopedics [address] [place] [address] Orthopaedic Surgery 05/15/24 documented as of this encounter
--- OUTSIDE RECORDS SUMMARY | 2024-08-22 15:26 | XMS_ITS | Data Portability ---
Author Organization [place] - [facility], [facility] Address [address] [place] [address] Care Team Providers Care Lan Engineer Name Role Phone JOHNINÉS BIRMINGHAM Primary Care Provider Assessment No assessment recorded. Plan of Treatment Reminders Order Date Submit Date Provider Last Modified By Organization Details Last Modified Time Details Appointments None recorded. Lab None recorded. Referral physical therapist referral - VMO Strengtheni ng, Hip Abductor, Glute Med Strengtheni ng, Quad & Hamstring Stretching, Patella Mobilizatio n, Kincaid Taping at your discretion. 2024 025 [facility], [address] [place] [address], [address], 5 10:33:14 physical therapist referral - Evaluate & RxLumbar Stabilizati on Program 2023 024 [email or web address] Not available 4 10:06:55 Procedures None recorded. Surgeries None recorded. Imaging None recorded. Medication Orders None recorded. Patient TargetsNo targets recorded. Patient InstructionsNo instructions recorded. Reason for Referral Physical Therapist Referral for Lumbar radiculopathy Evaluate & RxLumbar Stabilization Program Referring Physician: David Florentino, Orthopedic Surgery, [id number] Encounter Date: 11/23/2023 Physical Therapist Referral for History of arthroscopy of knee joint VMO Strengthening, Hip Abductor, Glute Med Strengthening, Quad & Hamstring Stretching, Patella Mobilization, Kincaid Taping at your discretion. Referring Physician: Dominik Oliver, Orthopedic Surgery, Encounter Date: 05/14/2024 Problems Name Problem SNOMED Code Status Onset Date Resolution Date Notes Provider Name and Address Organization Details Recorded Time Lumbar radiculopat hy 836702410 Active 2023 ALIA JONES [facility] 4 13:33:58 Tear of lateral meniscus of knee 449030123 Active 2023 THONG GREWAL [facility] 4 12:27:25 Acute tear of lateral meniscus of right knee 6057210894627 9100 Active 2023 THONG GREWAL [facility] 4 12:29:09 Problem Notes None recorded. Procedures Surgical History Date Name Laterality Status Provider Name and Address Organization Details Recorded Time 11/23/2023 Sports Knee 4&1 completed David Florentino MD [address] [place] [address] [address], [place], [address], [facility] 11/23/2023 13:41:58 Imaging Results None recorded. Procedure Notes None recorded. Medical Equipment None Reported. Allergies Allergen ID Allergen Name Allergen Category Reaction Reaction Severity Criticality Documentation Date Start Date Code Code System Note Provider Name and Address Organization Details Recorded Time 978622 amoxicill in medicatio n Not available Not available Not available 11/23/2023 723 [facility] 4 13:26:38 663150 Product containin g penicilli n (product) medicatio n Not available Not available Not available 11/23/2023 78504 8001 [facility]ED [facility] 4 13:26:44 334718 Iodinated contrast media (substanc e) medicatio n Not available Not available Not available 11/23/2023 03576 2003 SNOMED [facility] 4 13:26:51 537224 morphine medicatio n Not available Not available Not available 11/23/2023 7052 [facility] 13:27:02 Medications Name Sig Start Date Stop [...] TAKE 1 TABLET BY MOUTH TWICE DAILY 2024 active Not Available Not Available Not Avai lable Ventolin HFA 90 mcg/actuation aerosol inhaler INHALE [...] Updated DateTime 11/23/2023 162.56 cm 38.1 kg/m2 056046.51 g ALIA JONES [place] - [facility] 11/23/2023 13:26:31 Date Recorded Body height Body mass index (BMI) Body weight Provider Name and Address Organization Details Last Updated DateTime 02/29/2024 162.56 cm 38.1 kg/m2 574413.51 g THONG GREWAL [place] - [facility] 02/29/2024 15:27:30 Date Recorded Body height Body mass index (BMI) Body weight Body temperature Provider Name and Address Organization Details Last Updated DateTime 05/14/2024 162.56 cm 38.1 kg/m2 653886.51 g 98 [degF] Dominik Oliver PA-C [address], [place], [address] , [place] - [facility] 05/14/2024 15:51:10 Social History None recorded. Functional Status None recorded. Mental Status None recorded. Family History Nothing Reported. Medical History Condition Response Diabetes Y Stroke Y Hypertension Y Cholesterol Y Asthma Y Gynecological HistoryNo gynecological history recorded. Obstetrics History GPAL:G 0 P 0 0 0 0 Past Encounters Encounter ID Performer Location Encounter Start Date Encounter Closed Date Diagnosis/Indication Diagnosis SNOMED-CT Code Diagnosis ICD10 Code Diagnosis Note [id number] MD [facility] [address] [place] [address] 11/23/2023 13:09:21 12/22/2023 10:06:54 Lumbar radiculopathy 627578580 M54.16 Tear of la teral meniscus of knee 642765597 S83.281D [id number] MD [facility] [address] [place] [address] 02/29/2024 15:25:44 04/01/2024 13:26:13 Tear of lateral meniscus of knee 834617496 S83.281D [id number] Dominik Oliver PA-C [facility] [address] [place] [address] 05/14/2024 15:45:41 05/31/2024 09:38:28 History of arthroscopy of knee joint 910673121 Z98.890 Health Concerns Section Related Observation LastModified by Organization Detai ls LastModified Time None Recorded Concern Status LastModified by Organization Details LastModified Time None Recorded Advance Directives Directive None Recorded Payers Encounter Date Sequence Insurance Name Policy Number Policy Hernández Covered Member ID Hernández Member ID Guarantor Name 11/23/2023 1 [employer] - DOS ON OR AFTER 2022 - ONE CARE (MEDICARE REPLACEMENT/ADV ANTAGE - HMO) Ruthie Toussaint [id number] Ruthie Toussaint 02/29/2024 1 [employer] - DOS ON OR AFTER 2022 - ONE CARE (MEDICARE REPLACEMENT/ADV ANTAGE - HMO) Ruthie Toussaint [id number] Ruthie Toussaint 05/14/2024 1 [employer] [employer] - DOS ON OR AFTER 2022 - ONE CARE (MEDICARE REPLACEMENT/ADV ANTAGE - HMO) Ruthie Toussaint [id number] Ruthie Toussaint Notes Date Note Type Note [...] first. Follow-up 3 months. David Florentino MD [address] [place] [address] [address], [place], [address], [facility] 11/23/2023 13:51:28 4 text/htm [...] the next 30 days. David Florentino MD [address] [place] [address] [address], [place], [address], [facility] - [facility] 02/29/2024 16:15:09 5 text/htm [...] patient remains symptomatic. Dominik Oliver PA-C [address] [facility] [address], [place], [address], [facility] - [facility] 05/14/2024 16:02:41 OBGyn Episode No OBEpisode recorded.
--- OUTSIDE RECORDS SUMMARY | 2024-08-22 15:26 | XMS_ITS | Encounter Summary ---
Author Organization [employer] Address [address] [facility] [address] [place] [address] Care Team Providers Care Filer Repairer Name Role Phone Nikki James MD Primary Care Provider [phone] Mary Rain PharmD Unavailable [phone] Gerson Briggs Unavailable [phone] Babatunde Cornejo DO Unavailable [phone] Delaney Cantu Unavailable Encounter Details Date Type Department Care Team (Late st Contact Info) Description 06/02/2022 Abstract [facility] MEDICINE [address] [place] [address] [phone] Nikki James MD [address] [place] [address] [phone] Social History Tobacco Use Types Packs/Day Years [...] Description 10/16/2024 11:15 AM EDT Office Visit [facility] MEDICINE [address] [place] [address] [phone] Nikki James MD [address] [place] [address] [phone] documented as of this encounter Procedures Procedure [...] Pap Smear (12/26/2014 12:00 AM EDT) Swab [facility] Provider LAB CYTOLOGY ORDERABLES F inal Result IMAGING documented in this encounter Visit Diagnoses Not on filedocumented in this encounter Care Teams Filer Repairer Relationship Specialty Start Date End Date Nikki James MD [address] [place] [address] PCP - General Family Medicine 04/24/18 Mary Rain, ElishaD [address] [place] [address] Pharmacist Internal Medicine 01/26/23 Gerson Briggs [address] [place] [address] Pulmonary Disease 04/08/24 Babatunde Cornejo DO [address] [place] [address] Endocrinology 04/08/24 Delaney Cantu [address] [place] [address] [address] [place] [address] Dermatology 04/08/24 Dr. Bravo [facility] [address] [place] [address] Orthopaedic Surgery 05/15/24 documented as of this encounter
--- OUTSIDE RECORDS SUMMARY | 2024-08-22 15:26 | XMS_ITS | Encounter Summary ---
Author Organization [employer] Address [address] [facility] [address] [place] [address] Care Team Providers Care Van Driver Helper Name Role Phone Nikki James MD Primary Care Provider [phone] Mary Rain PharmD Unavailable Gesron Briggs Unavailable [phone] Babatunde Cornejo DO Unavailable [phone] Delaney Cantu Unavailable Reason for Visit * Reason Onset Date Comments Durable Medical Equipment 07/13/2022 Encounter Details Date Type Department Care Team (Late st Contact Info) Description 07/13/2022 Telephone [facility] MEDICINE [address] [place], [place] [phone] Nikki James MD [address] [place], [place] [phone] Durable Medical Equipment Social History Tobacco Use [...] send to medline Please contact pt at [phone] documented in this encounter Plan of Treatment Upcoming Encounters Date Type Department Care Team (Late st Contact Info) Description 10/16/2024 11:15 AM EDT Office Visit [facility] MEDICINE [address] [place] [address] Nikki James MD [address] [place] [address] documented as of this encounter Visit Diagnoses Not on filedocumented in this encounter Care Teams Van Driver Helper Relationship Specialty Start Date End Date Nikki James MD [address] [place] [address] PCP - General Family Medicine 04/24/18 Mary Rain, ElishaD [address] [place] [address] Pharmacist Internal Medicine 01/26/23 Gerson Briggs [address] [place] [address] Pulmonary Disease 04/08/24 Babatunde Cornejo DO [address] [place] [address] Endocrinology 04/08/24 Delaney Cantu [address] [place] [address] [address] [place] [address] Dermatology 04/08/24 Dr. Bravo [facility] [address] [place] [address] Orthopaedic Surgery 05/15/24 documented as of this encounter
--- OUTSIDE RECORDS SUMMARY | 2024-08-22 15:26 | XMS_ITS | Encounter Summary ---
Author Organization [employer] Address [address] [facility] [address] [place] [address] Care Team Providers Care In School Suspension Coordinator Name Role Phone Nikki James MD Primary Care Provider [phone] Mary Rain PharmD Unavailable Gerson Briggs Unavailable [phone] Babatunde Cornejo DO Unavailable [phone] Delaney Cantu Unavailable Encounter Details Date Type Department Care Team (Late st Contact Info) Description 10/05/2022 Orders Only [facility] [address] [place] [address] Alyssa Mehta LPN Social History Tobacco Use [...] Description 10/16/2024 11:15 AM EDT Office Visit [facility] MEDICINE [address] [place], [place] [phone] Nikki James MD [address] [place], [place] [phone] documented as of this encounter Visit Diagnoses Not on filedocumented in this encounter Care Teams In School Suspension Coordinator Relationship Specialty Start Date End Date Nikki James MD [address] [place] [address] PCP - General Family Medicine 04/24/18 Mary Rain PharmD [address] [place] [address] Pharmacist Internal Medicine 01/26/23 Gerson Briggs [address] [place] [address] Pulmonary Disease 04/08/24 Babatunde Cornejo DO [address] [place] [address] Endocrinology 04/08/24 Delaney Cantu [address] [place] [place] [address] [address] [place] [address] Dermatology 04/08/24 Dr. Bravo [facility] [address] [facility] [address] Orthopaedic Surgery 05/15/24 documented as of this encounter
--- OUTSIDE RECORDS SUMMARY | 2024-08-22 15:26 | XMS_ITS | Clinical Summary ---
Author Organization [employer] Address [address] [facility] [address] [place] [address] Care Team Providers Care Radio Television Announcer Name Role Phone Nikki James MD Primary Care Provider [phone] Mary Rain PharmD Unavailable Gerson Briggs Unavailable [phone] Babatunde Cornejo DO Unavailable [phone] Delaney Cantu Unavailable Allergies Active Allergy [...] noon, and at bedtime for muscle spasms. 023 Active cyancobalamine (Vitamin B-12) 250 MCG tabletIndication s:Vitamin deficiency Take 250 mcg by mouth in the morning. 024 Active ciclesonide (Alvesco) 160 MCG/ACT inhalerIndicatio ns:Moderate [...] complication, without long-term current use of insulin ([facility]) Take 1 tablet by mouth once daily 30 tablet 3 024 Active atorvastatin (Lipitor) 40 MG tabletIndication s:Type 2 diabetes mellitus without complication, without long-term current use of insulin ([facility]) Take 1 tablet (40 mg) by mouth Once per day. 90 tablet 3 024 Active montelukast (Singulair) 10 MG tabletIndication s:Moderate persistent asthma without complication Take 1 tablet (10 mg) by mouth at bedtime. 90 tablet 3 024 Active cholecalciferol (Vitamin D-3) 25 MCG (1000 UT) capsuleIndicatio ns:Vitamin D deficiency Take 1 capsule (25 mcg) by mouth Once per day. 60 capsule 2 024 Active Continuous Glucose Sensor (FreeStyle Mariusz 2 Sensor) miscIndications: Type 2 diabetes mellitus without complication, without long-term current use of insulin ([facility]) Use as directed to monitor glucose ever 8 hours. Replace sensor every 14 days. 2 each Active glucose blood (FreeStyle Precision Reza Test) test stripIndications :Type 2 diabetes mellitus without complication, without long-term current use of insulin ([facility]) Test blood sugar q 8 hours 100 each 12 Active Aspirin Low Dose 81 MG EC tabletIndication s:Abnormal echocardiogram TAKE 1 TABLET BY MOUTH EVERY DAY 90 tablet 3 024 Active semaglutide (Ozempic, 0.25 or 0.5 MG/DOSE,) 2 MG/1.5ML solution pen-injectorIndi cations:Type 2 Diabetes Mellitus Inject 0.25 mg subcutaneously q week x 4 weeks, then increased to 0.5mg subcutaneously q week after 3 mL 3 Active Lancets (OneTouch Delica Plus [id number]) miscIndications: Type 2 diabetes mellitus without complication, without long-term current use of insulin ([facility]) USE TO TEST BLOOD SUGAR ONCE A DAY 100 each Active ROFLUMILAST POIndications:Mo derate persistent asthma without complication Take by mouth. Ac tive Budeson-Glycopyr rol-Formoterol (Breztri Aerosphere) 160-9-4.8 MCG/ACT aerosolIndicatio ns:Moderate persistent asthma without complication Inhale. Active pantoprazole (ProtoNix) 20 MG EC tabletIndication s:Pain TAKE 1 TABLET BY MOUTH EVERY DAY 90 tablet 1 025 Active Budeson-Glycopyr rol-Formoterol (Breztri Aerosphere) 160-9-4.8 MCG/ACT aerosolIndicatio ns:Moderate persistent asthma without complication Inhale 2 puffs 2 times daily. Active levocetirizine (Xyzal) 5 MG tabletIndication s:Seasonal allergies TAKE 1 TABLET BY MOUTH EVERY DAY 30 tablet 1 025 Active levocetirizine (Xyzal) 5 MG tabletIndication s:Seasonal allergies Take 1 tablet (5 mg) by mouth Once per day. 30 tablet 024 2024 Discontinued(R eorder (will not trigger notification to Pharmacy)) Active Problems Patient Care Coordination No te Formatting of this note migh t be different from the original. Enrolled in [facility] DM clinic with Mary Rain, ElishaD, [facility] Mri Technician: Devi Occupational Health Nurse Supervisor Agency: [employer] Problem Noted Date Diagnosed Date Right knee [...] considered to be 1.7 or 2.4 mg halfway. -f/u in 2 months. Assessment & Plan [...] considered to be 1.7 or 2.4 mg halfway. -f/u in 2 months. Dermatitis 12/28/2023 Thyroid [...] least three times. She was followed by [facility] and was last seen for her final visit Feb 2011. Her care was transferred to [facility] who she sees for her [...] least three times. She was followed by [facility] and was last seen for her final visit Feb 2011. Her care was transferred to [facility] who she sees for her [...] least three times. She was followed by [facility] and was last seen for her final visit Feb 2011. Her care was transferred to [facility] who she sees for her chronic headaches and last saw Dec 2014. Topamax is 50 bid. She is now on gabapentin 100mg bid. Other specified health status 01/11/2023 Overview (04/08/2024): -next physical exam due after 02/11/25 -followed by Dr. García Wei of [facility] -dental home is [facility] -filed healthcare proxy on 07/17/2023 Assessment & Plan (02/12/2024 10:51 AM EDT): -next physical exam due after 02/11/25 -followed by Dr. García Wei of [facility] -dental home is [facility] [facility] -Filed healthcare proxy on 07/17/2023 Assessment & Plan (07/17/2023 11:31 AM EDT): -next physical exam due after 01/19/2024 -eye care facilitated by Dr. Archibald -dental home is [facility] -Filed healthcare proxy on 07/17/2023 Assessment & Plan (01/18/2023 11:55 AM EDT): -next physical exam due after 01/19/2024 -eye care facilitated by Dr. Archibald -dental home is [facility] 12/14/2022 Overview (04/09/2024): Diagnosis: Likely [...] Moderate persistent asthma without complication 12/14/2022 Overview (06/14/2024): Asthma not controlled. Significant eosinophilia chronically on labs. - Continue with pulmonology with Dr. Briggs, note from 06/12/24 reviewed -start Breztri BID 10/09/23 -stopped Dupixent due side effects -ALEJANDRA as needed -starting Fasenra 06/12/24 -Continue Singulair -reflux diet , F/U 6-8 [...] considered to be 1.7 or 2.4 mg halfway. -follow-up in 2 months. Assessment & Plan [...] considered to be 1.7 or 2.4 mg halfway. -follow-up in 2 months. Assessment & Plan [...] face and neck, under the care of Curriculum Supervisor Dr. Cantu. Last note available from Dr [...] Dizziness 03/30/2012 10/21/2023 Ventricular hemorrhage 03/30/201201/11 Encounters * This document contains information received from the source organization and may not represent a complete record from that organization. Date Type Department Care Team Description 2024 Telephone [facility] OPTOMETRY [address] [place], [place] [phone] Nickolas, Jewels, OD 08/02/2024 Refill [facility] MEDICINE [address] [place], [place] [phone] Nikki James MD Seasonal allergies 08/02/2024 Refill [facility] MEDICINE [address], [place] [phone] Nikki James MD Seasonal allergies 08/02/2024 Telephone [facility] MEDICINE [address], [place] [phone] Nikki James MD Referral 06/24/2024 Refill [facility] MEDICINE [address] [place] [address] [phone] Nikki James MD Type 2 diabetes mellitus without complication, without long-term current use of insulin ([facility]) 06/17/2024 Telephone [facility] MEDICINE [address] [place] [phone] Noa North NP 06/14/2024 Orders Only [facility] MEDICINE [address] [place] [address] [phone] Nikki James MD Moderate persistent asthma without complication (Primary Dx) 06/12/2024 Orders Only GENERIC EXTERNAL DATA DEPARTMENT Provider, Generic External Data 06/11/2024 Orders Only [facility] MEDICINE [address] [place] [address] [phone] Jenna Walter MD Labial cyst (Primary Dx) 06/06/2024 Telephone [facility] MEDICINE [address] [place] [address] [phone] Nikki James MD Nurse Triage 05/29/2024 Refill [facility] MED & PEDS [address] [place], [place] [phone] Nikki James MD Pain from Last 3 Months Immunizations Name Administration [...] trivalent, adjuvanted 02/07/2016 Pfizer Covid-19 Vaccine 12+ 02/12/2024,,11/17/2020 Pneumococcal Conjugate PCV 13 02/07/2016 Pneumococcal Polysaccharide [...] 02/12/2024 10:40 AM EDT Plan of Treatment Upcoming Encounters Date Type Department Care Team (Late st Contact Info) Description 10/16/2024 11:15 AM EDT Office Visit [facility] MEDICINE [address] [place] [address] Nikki James MD [address] [place] [address] Health Maintenance Due Date Last Done Comments CT Colonography 1965 FIT DNA/Cologuard 1966 FIT 1965 FOBT 1965 Sigmoidoscopy 1965 Pap Smear 12/27/2019 12/26/2014 SDOH Screening 07/06/2024 07/07/2023 Diabetes: Hemoglobin A1C 10/25/2024 025, 02/12/2024, 12/28/2023, Additional history exists Depression Screening 12/27/2024 12/28/2023, 12/28/19 24 Diabetes: Foot Exam 12/27/2024 12/28/2023, 12/28/2023, 12/28/2023, Additional history exists Cervical Cancer Screening 01/22/2025 HPV/Cotest 01/22/2025 01/23/2020, 01/23/2020 Alcohol/Substance Use Screening 02/11/2025 02/12/2024 Diabetes: Urine Protein Screening 02/11/2025 02/12/2024, 01/16/2023, 05/31/2021, Additional history exists Lipid Panel 02/11/2025 02/12/2024, 2 08/2022, 05/31/2021, Additional history exists Tobacco Screening 02/11/2025 02/12/2024 Pneumococcal Vaccine: 50+ Years (3 of 3 - PCV20 or PCV21) 06/20/2025 06/20/2020, 02/07/2016, 02/07/2016, Additional history exists Eye Exam 06/28/2025 06/29/2023, 030 10/2023, 06/29/2023, Additional history exists Mammogram 04/05/2026 04/05/2024, [...] AM EDT) No Piers-Gambl e, Mary, PharmD Procedures Procedure Name Priority Date/Time Associated Diagnosis Comments IMMUNOGLOBULIN E Routine 06/12/2024 12:2 1 PM EST SED RATE BY MODIFIED WESTERGREN Routine 06/12/2024 12:21 PM EST CBC WITH AUTO DIFFERENTIAL Routine 06/12/2024 12:21 PM EST BI MAMMOGRAM SCREENING TOMOSYNTHESIS BILATERAL Routine 04/05/2024 [...] EDT HM HEPATITIS C ANTIBODY Routine 08/13/2018 COLONOSCOPY Routine 09/15/2017 PAP SMEAR Routine 12/26/2014 12:00 AM EDT from Last 3 Months or Most Recently Relevant to Health Maintenance Results * (ABNORMAL) CBC auto differential (06/12/2024 12:21 PM EST) White Blood Count 7.1 4.8 - 10.8 X10*3/uL [facility] Red Blood Count 5.10 4.20 - 5.50 X10*6/uL [facility] Hemoglobin 13.6 12.0 - 16.0 g/dl [facility] Hematocrit 42.5 37.0 - 47.0 % [facility] Mean Corpuscular Volume 83.3 80.0 - 98.0 fL [facility] Mean Corpuscular Hemoglobin 26.7(L) 27.0 - 33.0 pg [facility] Mean Corpuscular HGB Conc 32.0 31.0 - 35.0 g/dl [facility] Red Cell Distribution Width 14.8 11.0 - 16.0 % [facility] Platelet Count 234 160 - 400 X10*3/uL [facility] Mean Platelet Volume 9.7 9.4 - 12.3 fL [facility] Neutrophils Percent Auto 55.8 45 - 73 % [facility] Imm Gran Pct Auto 0.1 0.0 - 0.4 % [facility] Lymphocytes Percent Auto 31.9 20 - 40 % [facility] Monocytes Percent Auto 5.4 2 - 11 % [facility] Eosinophils Percent Auto 6.2(H) 0 - 4 % [facility] Basophils Percent Auto 0.6 0 - 2 % [facility] NRBC Pct Auto 0.0 0.0 - 0.2 /100WBC [facility] Neutrophils Absolute Auto 3.9 2.0 - 8.3 x10*3/uL [facility] Imm Gran Abs Auto 0.01 0.00 - 0.03 X10*3/uL [facility] Lymphocytes Absolute Auto 2.3 1.2 - 4.9 X10*3/uL [facility] Monocytes Absolute Auto 0.4 0.1 - 1.2 X10*3/uL [facility] Eosinophils Absolute Auto 0.4 0.0 - 0.4 X10*3/uL [facility] Basophils Absolute Auto 0.0 0.0 - 0.2 X10*3/uL [facility] NRBC Abs Auto 0.000 0.0 - 0.012 X10*3/uL [facility] 06/12/2024 12:2 1 PM EST 06/12/2024 12:21 PM EST Generic External Data Provider LAB BLOOD ORDERAB LES Final Result Performing Organization Address [facility] Co de Phone Number [facility] [address] [place] [phone] * Sed Rate by Modified Westergren (06/12/2024 12:21 PM EST) Pathologist [facility] Erythrocyte Sedimentation Rate 16 0 - 20 MM/HR [facility] Comment:Patients with polycy themia and many hemoglobin abnormalitiesmay have depressed sed rates whereas patients with anemiamay have elevated sed rates. 06/12/2024 12:2 1 PM EST 06/12/2024 12:21 PM EST Generic External Data Provider LAB BLOOD ORDERAB LES Final Result Performing Organization Address [facility] Co de Phone Number [facility] [address] [place] [phone] * (ABNORMAL) Immunoglobulin E (06/12/2024 12:21 PM EST) Immunoglobulin E 208(A) <HI=606 kU/L [facility] Comment:THIS TEST WAS PERFOR MED AT:[employer] [place] [phone] VANCE MD 06/12/2024 12:2 1 PM EST 06/12/2024 12:21 PM EST us Generic External Data Provider LAB BLOOD ORDERAB LES Final Result [facility] [address] [facility] [place] [phone] * BI Mammogram Screening Tomosynthesis Bilateral (04/05/2024 1:00 PM EST) Anatomical Region Laterality Modality Breast Bilateral Mammography 04/05/2024 1:00 PM EST Narrative 04/15/2024 3:59 PM EST ? [facility] ? [address] ?[place] [id number] ? Mammography Report ? Signed ? Patient: Toussaint,Ruthie ?MR#: [id number] ?? 6 ? : 1965 ?Acct:[id number] ? Age/Sex: 58 / F ?ADM Date: 04/05/24 ? Loc: HO.MAMMO ? Attending Dr: Nikki James MD ? Ordering Physician: Nikki James MD ?Results: 1N ?? egative ? Date of Service: 04/05/24 ?Follow Up: 1 Year From Orig ?? inal Mammogram ? Procedure(s): MM tomosynthesis screening BI ?? Accession Number(s): [id number] ? cc: Nikki James MD ? EXAMINATION: [...] ??Michelle Connors DO ??04/15/2024 03:56 PM EST ? Dictated By: ?Michelle Connors DO ? Signed By: ?<Electronically signed by Michelle Connors, DO in OV> ? 04/15/24 1556 ? DD/ 1300 ? TD/TT: 04/05/24 1318 ? Physician Relations Manager: ? Procedure Note Stephanie Bustillos - 04/15/2024 [facility] [address] [place] [address] [place] [address] Mammography Report Signed Patient: Sameera Toussaint#: [id number] 6 : 1965Acct:[id number] Age/Sex: 58 / FADM Date: 04/05/24 Loc: HO.MAMMO Attending Dr: Nikki James MD Ordering Physician: Nikki James MDResults: 1N egative Date of Service: 04/05/24Follow Up: 1 Year From Orig inal Mammogram Procedure(s): MM tomosynthesis screening BI Accession Number(s): [id number] cc: Nikki James MD EXAMINATION: MM SCREENING [...] 04/15/24 1556 DD/ 1300 TD/TT: 04/05/24 1318 Physician Relations Manager: Nikki James MD IMG BI PROCEDURES Final Re sult * Albumin, Random Urine W/Creatinine (02/12/2024 11:45 AM EDT) Creatinine, Urine 100.78 mg/dL [facility] Microalbumin Urine 7.0 mg/L [facility] Microalbum Creatinine Ratio Ur 6.9 <30 ug/mg cr [facility] Comment:Albumin/Creatinine R atio Reference Ranges: Normal: < 30 ug/mg creatinine Microalbuminuria: 30 - 300 ug/mg creatinineClinical Albuminuria: > 300 ug/mg creatinine Urine 02/12/2024 11:4 5 AM EDT 02/12/2024 1:10 PM EDT Nikki James MD LAB URINE ORDERABLES Final Result Performing Organization Address [facility] Co de Phone Number [facility] [address] [place] [phone] * (ABNORMAL) Hemoglobin A1c (02/12/2024 11:33 AM EDT) Hemoglobin A1c 7.7(H) <6.0 % [facility] Comment:Hemoglobin A1C Refer ence Range Adults: 4.8 - 6.0 % Non diabetic: < 6.0 % Goal: < 7.0 %Additional Action Suggested: > 8.0 %Note: Hemoglobin A1c results are invalid for patients with abnormal amounts of HbF. Blood transfusions may impact the HbA1c concentration in the patient sample. Estimated Average Glucose 174 mg/dL [facility] Comment:eAG = Estimated ave rage glucose which is %A1C expressed asaverage glucose, using the formula of the J5E-ZrzwdwkMdfzpoq Glucose study (ADAG), Diabetes Care, Vol.31,#8,Nov. 2007 Blood Venous blood specimen / Unknown 02/12/2024 11:33 AM EDT 02/12/2024 1:19 PM EDT Nikki James MD LAB BLOOD ORDERABLES Final Result Performing Organization Address [facility] Co de Phone Number [facility] [address] [place] [phone] * Lipid Panel, Standard (02/12/2024 11:33 AM EDT) Triglycerides 86 <150 mg/dL [facility] Comment:Desirable Triglyceri de: less than 150 mg/dLBorderline High Triglyceride 150-199 mg/dLHigh Triglyceride: 200-499 mg/dLVery High Triglyceride: greater than or equal to 5OO mg/dL Cholesterol 159 <200 mg/dL [facility] Comment:Desirable Cholestero l: less than 200 mg/dLBorderline High Cholesterol: 200-239 mg/dLHigh Cholesterol: greater than 239 mg/dL LDL Cholesterol Calculated 86 <100 mg/dL [facility] Comment:Desirable LDL: less than 100 mg/dLNear Optimal/Above Optimal LDL: 110- 129 mg/dLBorderline High LDL: 130-159 mg/dLHigh LDL: 160-189 mg/dLVery High LDL: greater than or equal to 190 mg/dL HDL Cholesterol 56 >40 mg/dL [facility] Comment:Desirable HDL: great er than 40 mg/dL Note: This HDL assay may give artificially low results in patients with liver disease. Blood Venous blood specimen / Unknown 02/12/2024 11:33 AM EDT 02/12/2024 1:37 PM EDT Nikki James MD LAB BLOOD ORDERABLES Final Result Performing Organization Address City/State/[facility] Co de Phone Number [facility] [address] [place] [phone] * HIV 1/2 ANTIGEN/ANTIBODY,FOURTH GENERATION W/RFL (05/31/2021 1:02 PM EST) [facility] HIV-1/2 ANTIGEN AND ANTIBODIES, 4TH GENERATION W/ REFLEX NON-REACT MARTIN NON-REACT MARTIN [facility] Comment: HIV-1 antigen and [...] ? For additional information please refer to http://education.[employer].Y-Clients/faq/XDU598 (This link is being provided for informational/ educational purposes only.) ? The performance of this assay has not been clinically validated in patients less than 2 years old. ?? 05/31/2021 1:02 PM EST Nikki James MD LAB BLOOD ORDERABLES Final Result Performing Organization Address City/State/[facility] Co de Phone Number [facility] [address] * HPV E6/E7 RFLX ESTEE 16 18/45 (01/23/2020 2:02 PM EDT) Pathologist [facility] HPV 16 RNA [facility] HPV 18/45 RNA [facility] HPV E6 E7 ADD [facility] HPV mRNA E6/E7 Not Detected Not Detected [facility] Comment: This test was performed using the APTIMA HPV Assay ([employer] This assay detects E6/E7 viral messenger RNA (mRNA) from 14 high-risk HPV types (16,18,31,33,35,39,45,51,52,56,58,59,66,68). The analytical performance characteristics of this assay have been determined by [employer]. The modifications have not been cleared or approved by the FDA. This assay has been validated pursuant to the CLIA regulations and is used for clinical purposes. THIS TEST WAS PERFORMED AT: [employer] [address] [place] [address],[address] [place], [place] ??[phone] CASSIE VANCE MD 01/23/2020 2:02 PM EDT Jessica Grace HISTORICAL/NON ORDERABLE LABS Fi nal Result Performing Organization Address [facility] de Phone Number [facility] [address] * HM Hepatitis C Antibody (08/13/2018) Pathologist [facility] Hepatitis C Antibody Nonreactive Blood Historical Provider HEALTH MAINTENANCE Final Result * Hm Colonoscopy (09/15/2017) Pathologist [facility] Colonoscopy normal with Dr. 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 Bravo [facility] [address] [place] [phone] Orthopaedic Surgery 05/15/24
--- OUTSIDE RECORDS SUMMARY | 2024-08-22 15:26 | XMS_ITS | Encounter Summary ---
Author Organization [employer] Address [address] [facility] 7t [place] [address] Care Team Providers Care Seamer Panty Hose Name Role Phone Nikki James MD Primary Care Provider [phone] Mary Rain PharmD Unavailable Gerson Briggs Unavailable [phone] Clemente Babatunde Babb DO Unavailable [phone] Delaney Cantu Unavailable Reason for Visit * Reason Comments Med Refill Encounter Details Date Type Department Care Team (Late st Contact Info) Description 04/25/2023 Refill [facility] [address] [place] [address] Pauline Berger MD [address] [place] [address] [phone] Social History Tobacco Use Types Packs/Day Years [...] 10/16/2024 11:15 AM EDT Office Visit [facility] [address] [place] [phone] Nikki James MD [address] [place] [phone] documented as of this encounter Goals Goal Patient Goal Type Associated Problems Recent Progress Patient-Stated? Author Blood Pressure < 140/90 Blood Pressure 136/72(2023 11:04 AM EDT) No Dawoods-Roselnie Mcadamssa, PharmD Hemoglobin A1c < 7 Result Component 7.7( 11:33 AM EDT) No DawoodsMary Rea, PharmD documented as of this encounter Visit Diagnoses Not on filedocumented in this encounter Additional Health Concerns Assessment Noted Time PHQ-9 Depression Total Score: 10 023 11:39 AM EDT documented as of this encounter Care Teams Seamer Panty Hose Relationship Specialty Start Date End Date Nikki James MD [address] [place] [phone] PCP - General Family Medicine 04/24/18 Mary Rain, PharmD [address] [place] [phone] Pharmacist Internal Medicine 01/26/23 Gerson Briggs [address] [place] [address] Pulmonary Disease 04/08/24 Babatunde Cornejo DO [address] [place] [address] Endocrinology 04/08/24 Delaney Cantu [address] [place] [phone] Dermatology 04/08/24 Dr. Bravo [facility] [address] [place] [address] Orthopaedic Surgery 05/15/24 documented as of this encounter
--- OUTSIDE RECORDS SUMMARY | 2024-08-22 15:26 | XMS_ITS | Encounter Summary ---
Author Organization [employer] Address 75 [facility] 7t [place] [address] Care Team Providers Care Novelty Dipper Name Role Phone Nikki James MD Primary Care Provider [phone]- [phone] Mary Rain PharmD Unavailable Gerson Briggs Unavailable [phone] Babatunde Cornejo DO Unavailable [phone] Delaney Cantu Unavailable Encounter Details Date Type Department Care Team (Late st Contact Info) Description 05/10/2022 Orders Only [facility] PEDS [address] [place] [address] Alyssa Mehta LPN Social History Tobacco Use [...] Description 10/16/2024 11:15 AM EDT Office Visit [facility] MEDICINE [address] [place], [place] [phone] Nikki James MD [address] [place], [place] [phone] documented as of this encounter Visit Diagnoses Not on filedocumented in this encounter Care Teams Novelty Dipper Relationship Specialty Start Date End Date Nikki James MD [address] [place] [address] PCP - General Family Medicine 04/24/18 Mary Rain PharmD [address] [place] [address] Pharmacist Internal Medicine 01/26/23 Gerson Briggs [address] [place] [address] Pulmonary Disease 04/08/24 Babatunde Cornejo DO 22 [place] [address] Endocrinology 04/08/24 Delaney Cantu [address] [place] [address] [address] [place] [address] Dermatology 04/08/24 Dr. Bravo [facility] Orthopedics 300 [facility] [address] Orthopaedic Surgery 05/15/24 documented as of this encounter
--- OUTSIDE RECORDS SUMMARY | 2024-08-22 15:26 | XMS_ITS | Encounter Summary ---
Author Organization [employer] Address 75 [facility] 7t [place] [address] Care Team Providers Care Rocket Engine Component Mechanic Name Role Phone Nikki James MD Primary Care Provider [phone]- [phone] Mary Rain PharmD Unavailable Gerson Briggs Unavailable [phone] Babatunde Cornejo DO Unavailable [phone] Delaney Cantu Unavailable Reason for Visit * Reason Onset Date Comments Nurse Triage 05/16/2023 Encounter Details Date Type Department Care Team (Late st Contact Info) Description 05/16/2023 Telephone [facility] MED[facility]INE [address] [place], [place] [phone] Nikki James MD [address] [place], [place] [phone] Nurse Triage Social History Tobacco Use Types Packs/Day Years Used Date Smoking Tobacco: Never Passive Smoke Exposure: Never Smokeless Tobacco: Never Depression Answer Date Recorded Patient Health Questionnaire-9 Score 10 01/18/2023 Housing Stability Answer Date Recorded What is your housing situation today? I have true chrsitianson 02/15/[address] you li [...] 05/16/2023 12:32 PM EST Triage call with [employer] [id number] Pt reports positive Covid test 05/10/23. Pt [...] Hands Often * Telephone Encounter - Lonnie Perez - 05/16/2023 11:39 AM EST Symptom: COVID-19 positive as of 05/10 Outcome: Schedule a same-day appointment or talk to a nurse or provider today Reason: Caller denied all higher acuity questions The caller accepted this outcome Patient speaks argentine documented in this encounter Plan of Treatment Upcoming Encounters Date Type Department Care Team (Late st Contact Info) Description 10/16/2024 11:15 AM EDT Office Visit [facility] MEDICINE [address] [place] [address] Nikki James MD [address] [place] [address] documented as of this encounter Goals Goal Patient Goal Type Associated Problems Recent Progress Patient-Stated? Author Blood Pressure < 140/90 Blood Pressure 136/72(2023 11:04 AM EDT) No Dawoods-Roseline Mcadamssa, PharmD Hemoglobin A1c < 7 Result Component 7.7( 11:33 AM EDT) No Piers-Gambl eRoselinesa, PharmD documented as of this encounter Visit Diagnoses Not on filedocumented in this encounter Additional Health Concerns Assessment Noted Time PHQ-9 Depression Total Score: 10 01/18/ 023 11:39 AM EDT documented as of this encounter Care Teams Rocket Engine Component Mechanic Relationship Specialty Start Date End Date Nikki James MD [address] [place] [address] PCP - General Family Medicine 04/24/18 Mary Rain, Kisha [address] [place] [address] Pharmacist Internal Medicine 01/26/23 Gerson Briggs [address] [place] [address] Pulmonary Disease 04/08/24 Babatunde Cornejo DO 22 [place] [address] Endocrinology 04/08/24 Delaney Cantu [address] [address] Dermatology 04/08/24 Dr. Bravo [facility] Orthopedics 300 [facility] [address] Orthopaedic Surgery 05/15/24 documented as of this encounter
--- OUTSIDE RECORDS SUMMARY | 2024-08-22 15:26 | XMS_ITS | Encounter Summary ---
Author Organization [employer] Address 75 [facility] 7t [place] [address] Care Team Providers Care Welder Fitter Name Role Phone Nikki James MD Primary Care Provider [phone]- [phone] Mary Rain PharmD Unavailable Gerson Briggs Unavailable [phone] Babatunde Cornejo DO Unavailable [phone] Delaney Cantu Unavailable Reason for Referral * Consultation (STAT) - Closed Specialty Diagnoses / Procedures Referred By Contac t Referred To Contact Obstetrics and Gynecology Diagnoses Labial cyst Jenna Walter MD [address] [place] [address] Phone: tel: fax: [facility] Referral ID Status Reason Start Date Expiration Date V isits Requested Visits Authorized [id number] Closed Specialty Services Required 06/11/2024 06/11/2025 1 1 Encounter Details Date Type Department Care Team (Late st Contact Info) Description 06/11/2024 Orders Only [facility] MEDICINE [address] [place], [place] [phone] Jenna Walter MD [address] [place], [place] [phone] Labial cyst (Primary Dx) Social History Tobacco [...] Description 10/16/2024 11:15 AM EDT Office Visit [facility] [address] [place] [address] Nikki James MD [address] [place] [address] Scheduled Referrals Name Type Priority Associated Diagnoses Order Schedule Referral to Obstetrics / Gynecology Outpatient Referral STAT Labial cyst Expected: 06/11/2024 (Approximate), Expires: 06/11/2025 documented as of this encounter Goals Goal Patient Goal Type Associated Problems Recent Progress Patient-Stated? Author Blood Pressure < 140/90 Blood Pressure 136/72(2023 11:04 AM EDT) No Dawoods-Nanettel kenn, Mary, PharmD Hemoglobin A1c < 7 Result Component 7.7( 11:33 AM EDT) No Dawoods-Roseline Mcadamssa, PharmD documented as of this encounter Visit Diagnoses Diagnosis Labial cyst- Primary Other specified noninflammatory disorder of vulva and perineum documented in this encounter Additional Health Concerns Assessment Noted Time PHQ-9 Depression Total Score: 12 024 10:49 AM EDT documented as of this encounter Care Teams Welder Fitter Relationship Specialty Start Date End Date Nikki James MD [address] [place] [address] PCP - General Family Medicine 04/24/18 Mary Rain, PharmD [address] [place] [address] Pharmacist Internal Medicine 01/26/23 Gerson Briggs 5 [place] [address] Pulmonary Disease 04/08/24 Babatunde Cornejo DO 22 [place] [address] Endocrinology 04/08/24 Delaney Cantu [address] [place] [address] [address] [place] [address] Dermatology 04/08/[address] [facility] Orthopedics [address] [place] [address] Orthopaedic Surgery 05/15/24 documented as of this encounter
--- OUTSIDE RECORDS SUMMARY | 2024-08-22 15:26 | XMS_ITS | Encounter Summary ---
Author Organization [employer] Address 75 [facility] 7t [place] [address] Care Team Providers Care Publication Director Name Role Phone Nikki James MD Primary Care Provider [phone] Mary Rain PharmD Unavailable Gerson Briggs Unavailable [phone] Babatunde Cornejo DO Unavailable [phone] Delaney Cantu Unavailable Encounter Details Date Type Department Care Team (Late st Contact Info) Description 11/10/2022 Orders Only [facility] MEDICINE [address] [place] [address] Lisbeth Taylor LPN Social History Tobacco Use [...] Description 10/16/2024 11:15 AM EDT Office Visit [facility] [address] [place], [place] [phone] Nikki James MD [address] [place], [place] [phone] documented as of this encounter Visit Diagnoses Not on filedocumented in this encounter Care Teams Publication Director Relationship Specialty Start Date End Date Nikki James MD [address] [place] [address] PCP - General Family Medicine 04/24/18 Mary Rain PharmD [address] [place] [address] Pharmacist Internal Medicine 01/26/23 Gerson Briggs [address] [place] [address] Pulmonary Disease 04/08/24 Babatunde Cornejo DO 22 [place] [address] Endocrinology 04/08/24 Delaney Cantu [address] [place] [address] Dermatology 04/08/24 Dr. Bravo [facility] Orthopedics 300 [facility] [address] Orthopaedic Surgery 05/15/24 documented as of this encounter
--- OUTSIDE RECORDS SUMMARY | 2024-08-22 15:26 | XMS_ITS | Encounter Summary ---
Author Organization [employer] Address 75 [facility] 7t [place] [address] Care Team Providers Care Product Finisher Name Role Phone Nikki James MD Primary Care Provider [phone] Mary Rain PharmD Unavailable Gerson Briggs Unavailable [phone] Babatunde Cornejo DO Unavailable [phone] Delaney Cantu Unavailable Reason for Visit * Reason Onset Date Comments Referral 02/15/2023 Encounter Details Date Type Department Care Team (Late st Contact Info) Description 02/15/[address] [facility] MEDICINE 230 [place], [place] [phone] Nikki James MD 230 [place], [place] [phone] Referral Social History Tobacco Use Types Packs/Day [...] specialist due to headaches and aneurysm historial. [facility] Neurology [facility] [address] [address] documented in this encounter Plan of Treatment Upcoming Encounters Date Type Department Care Team (Late st Contact Info) Description 10/16/2024 11:15 AM EDT Office Visit [facility] [address] [place] [address] Nikki James MD [address] [place] [address] documented as of this encounter Goals Goal [...] Assessment Noted Time PHQ-9 Depression Total Score: 023 11:39 AM EDT documented as of this encounter Care Teams Product Finisher Relationship Specialty Start Date End Date Nikki James MD 230 [place] [address] PCP - General Family Medicine 04/24/18 Mary Rain PharmD [address] [place] [address] Pharmacist Internal Medicine 01/26/23 Gerson Briggs [address] [place] [address] Pulmonary Disease 04/08/24 Babatunde Cornejo DO 22 [place] [address] Endocrinology 04/08/24 Delaney Cantu [address] [place] [address] Dermatology 04/08/24 Dr. Bravo [facility] Orthopedics [address] [place] [address] Orthopaedic Surgery 05/15/24 documented as of this encounter
--- OUTSIDE RECORDS SUMMARY | 2024-08-22 15:26 | XMS_ITS | Encounter Summary ---
Author Organization [employer] Address 75 [facility] 7t [place] [address] Care Team Providers Care Personalized Living Manager Name Role Phone Nikki James MD Primary Care Provider [phone] Mary Rain PharmD Unavailable Gerson Briggs Unavailable [phone] Babatunde Cornejo DO Unavailable [phone] Delaney Cantu Unavailable Encounter Details Date Type Department Care Team (Late st Contact Info) Description 10/21/2023 Orders Only [facility] MEDICINE [address] [place], [place] [phone] Nikki James MD 230 [place], [place] [phone] Social History Tobacco Use Types Packs/Day Years [...] Description 10/16/2024 11:15 AM EDT Office Visit [facility] MEDICINE [address] [place] [address] Nikki James MD [address] [place] [address] documented as of this encounter Goals Goal [...] documented as of this encounter Care Teams Personalized Living Manager Relationship Specialty Start Date End Date Nikki James MD [address] [place] [phone] PCP - General Family Medicine 04/24/18 Mary Rain, PharmD [address] [place] [address] Pharmacist Internal Medicine 01/26/23 Gerson Briggs 5 [place] [address] Pulmonary Disease 04/08/24 Babatunde Cornejo DO 22 [place] [address] Endocrinology 04/08/24 Delaney Cantu [address] [place] [address] Dermatology 04/08/[address] [facility] Orthopedics [address] [place] [address] Orthopaedic Surgery 05/15/24 documented as of this encounter
--- OUTSIDE RECORDS SUMMARY | 2024-08-22 15:26 | XMS_ITS | Clinical Summary ---
Author Organization [facility] Address [address] [place] [address] Care Team Providers Care Top Coater Name Role Phone Unavailable Primary Care Provider Unavailabl e Social History Tobacco Use Types Packs/Day Years Used Date Smoking Tobacco: Never Assessed Comments Unknown Sex and Gender Information Value Date Recorded Sex Assigned at Not on file Legal Sex Female 4:13 PM EDT Gender Identity Not on file Sexual Orientation Not on file Plan of Treatment Health Maintenance Due Date Last Done Comments Hepatitis C Virus Screening 1966 HIV Screening 08/17/1979 DTaP/Tdap/Td Vaccines (1 - Tdap) 1985 Hepatitis B Vaccines (1 of 3 - 19+ 3-dose series) 07/24 Pneumococcal Vaccines 50+ (1 of 1 - PCV) 2016 Zoster (Shingles) Vaccine (1 of 2) 2016 COVID-19 Vaccine ( - 2023- season) 2023
--- OUTSIDE RECORDS SUMMARY | 2024-08-22 15:26 | XMS_ITS | Encounter Summary ---
Author Organization [employer] Address 75 [facility] 7t [place] [address] Care Team Providers Care Press Machine Operator Name Role Phone Nikki James MD Primary Care Provider [phone]- [phone] Mary Rain PharmD Unavailable Gerson Briggs Unavailable [phone] Babatunde Cornejo DO Unavailable [phone] Delaney Cantu Unavailable Reason for Visit * Reason Comments Med Refill Encounter Details Date Type Department Care Team (Late st Contact Info) Description 06/24/2024 Refill [facility] MEDICINE [address] [place], [place] [phone] Nikki James MD [address] [place], [place] [phone] Type 2 diabetes mellitus without complication, without long-term current use of insulin ([facility]) Social History Tobacco Use Types Packs/Day Years [...] Description 10/16/2024 11:15 AM EDT Office Visit [facility] MEDICINE [address] [place] [address] Nikki James MD [address] [place] [address] documented as of this encounter Goals Goal Patient Goal Type Associated Problems Recent Progress Patient-Stated? Author Blood Pressure < 140/90 Blood Pressure 136/72(2023 11:04 AM EDT) No Mary Forbes, PharmD Hemoglobin A1c < 7 Result Component 7.7( 11:33 AM EDT) No DawoodsMary Rea PharmD documented as of this encounter Visit Diagnoses Diagnosis Type 2 diabetes mellitus without complication, without long-term current use of insulin ([facility]) documented in this encounter Additional Health Concerns Assessment Noted Time PHQ-9 Depression Total Score: 12 024 10:49 AM EDT documented as of this encounter Care Teams Press Machine Operator Relationship Specialty Start Date End Date Nikki James MD [address] [place] [address] PCP - General Family Medicine 04/24/18 Mary Rain, ElishaD [address] [place] [address] Pharmacist Internal Medicine 01/26/23 Gerson Briggs [address] [place] [address] Pulmonary Disease 04/08/24 Babatunde Cornejo DO 22 [place] [address] Endocrinology 04/08/24 Delaney Cantu [address] [address] Dermatology 04/08/24 Dr. Bravo [facility] Orthopedics [address] [place] [address] Orthopaedic Surgery 05/15/24 documented as of this encounter
--- OUTSIDE RECORDS SUMMARY | 2024-08-22 15:27 | XMS_ITS | Encounter Summary ---
Author Organization [employer] Address 75 [facility] 7t [place] [address] Care Team Providers Care Classroom Aide Name Role Phone Nikki James MD Primary Care Provider [phone] Mary Rain PharmD Unavailable [phone] Gerson Briggs Unavailable [phone] Babatunde Cornejo DO Unavailable [phone] Delaney Cantu Unavailable Encounter Details Date Type Department Care Team (Late st Contact Info) Description 04/21/2022 Orders Only [facility] MEDICINE [address] [place] [address] Lisa Navarro RN Social History Tobacco Use [...] Description 10/16/2024 11:15 AM EDT Office Visit [facility] MEDICINE [address] [place] [address] Nikki James MD 230 [place], [place] [phone] documented as of this encounter Visit Diagnoses Not on filedocumented in this encounter Care Teams Classroom Aide Relationship Specialty Start Date End Date Nikki James MD [address] [place] [address] PCP - General Family Medicine 04/24/18 Mary Rain PharmD [address] [place] [address] Pharmacist Internal Medicine 01/26/23 Gerson Briggs [address] [place] [address] Pulmonary Disease 04/08/24 Babatunde Cornejo DO 22 [place] [address] Endocrinology 04/08/24 Delaney Cantu [address] [place] [address] Dermatology 04/08/24 Dr. Bravo [facility] Orthopedics 300 [facility] [address] Orthopaedic Surgery 05/15/24 documented as of this encounter
[2024-08-29 14:36] VITALS: BMI 36.4
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
[2024-09-02 12:50] VITALS: BMI 33.1
[2024-09-02 12:56] VITALS: BP 124/76; PULSE 82; RESP 16; TEMP 36.7; O2SAT 99
[2024-09-02] MEDS: Lactated Ringers 1,000 ML 100 ML IVCONT (13:05)
[2024-09-02 13:11] LABS: Glucose, Whole Blood 114 mg/dL (60-115)
[2024-09-02 14:04] VITALS: BP 136/80; PULSE 85; RESP 17; TEMP 36.4; O2SAT 95
--- NOTE | 2024-09-02 14:08 | P.BOP_ITS ---
Brief Operative Note Date of Service: 09/02/24 Pre-op diagnosis: GERD Post-op diagnosis: other (Minimal HH, GERD) Procedure: EGD with bx Surgeon: Uzair Ruiz MD Anesthesia: MAC Was an Quality Audit Representative used for this Procedure?: No Estimated blood loss (mL): 2.0 Pathology: other (A. EG Junction at 35cm) Condition: stable Disposition: PACU
[2024-09-02 14:19] VITALS: BP 104/83; PULSE 85; RESP 17; O2SAT 99
[2024-09-02 14:31] VITALS: BP 143/82; PULSE 85; RESP 19; TEMP 36.8; O2SAT 99
--- NOTE | 2024-09-02 16:30 | OP_ITS ---
DATE OF SERVICE: 09/02/2024 SURGEON: Uazir Ruiz MD INDICATIONS: The patient presents for evaluation of gastroesophageal reflux. Full consent has been obtained from her for this, including risks of bleeding and perforation. PREOPERATIVE DIAGNOSIS: Gastroesophageal reflux. POSTOPERATIVE DIAGNOSIS: PROCEDURE PERFORMED: Esophagogastroduodenoscopy with biopsies. ESTIMATED BLOOD LOSS: COMPLICATIONS: ANESTHESIA: Monitored anesthesia care. ASSISTANTS: SPECIMENS: POSTOPERATIVE DIAGNOSES: Gastroesophageal reflux, small hiatal hernia, minimal gastric retention. DESCRIPTION OF PROCEDURE: The patient was placed in the left lateral decubitus position. The Olympus video gastroscope was passed in the posterior oropharynx and upper esophagus under direct vision. The scope was passed slowly to the distal esophagus. The gastroesophageal junction appeared at 35 cm. There was some very minimal irregularity consistent with reflux, but no evidence of any esophagitis nor Hendrickson's esophagus. The scope entered the stomach. There was a minimal hiatal hernia. There was also a minimal amount of retained old food. The scope was advanced to the pylorus and the duodenum was cannulated to the descending portion. The duodenum including the bulb appeared normal without mass or ulceration. The scope was withdrawn back to the stomach. The gastric antrum and body appeared normal. Peristalsis appeared to be perhaps somewhat subjectively diminished. There was no ulceration or mass. The scope was retroflexed, visualizing the proximal stomach carefully, which appeared normal, without any sign of mass or ulceration. The scope was straightened and withdrawn back to the esophagus. Biopsies were obtained at the EG junction. Proximal to this, the esophageal mucosa appeared normal. The scope was withdrawn from the patient. She tolerated the procedure well and was returned to the recovery area in stable condition. IMPRESSION: Minimal changes of reflux with associated minimal hiatal hernia and minimal gastric retention. PLAN: The results of the biopsies will be checked. She has been using pantoprazole 20 mg daily and I shall increase that to 40 mg daily as she still has intermittent heartburn. She may have some component of either a diabetic-induced gastroparesis and/or some retained gastric contents in relation to her diabetes medication. I did advise to be sure not to eat for several hours before bedtime and hopefully just the higher dose of the PPI will suffice to keep her reflux stable. If things worsen, she may need further evaluation with a gastric emptying study, but I do not think she needs that at this time. I have advised her to see me later in the year for followup in regard to the previously elevated LFTs, which I feel are from fatty liver in relation to her multiple risk factors for that. She was advised to resume her aspirin by tomorrow. This has all been discussed with her daughter, Tiburcio, via phone. MD MORAIMA Garcia/SOSA / [id number]
== END 2024-09-02 15:14 | disposition home or self-care (01) ==
PROVIDERS: PCP Family Medicine; Visit Provider Internal Medicine
PROC: 0DJ08ZZ Inspection of Upper Intestinal Tract, Via Natural or Artificial Opening Endoscopic (ICD-10-PCS; CPT 43235; principal; 2024-09-02 13:30)
DX: K21.9 Gastro-esophageal reflux disease without esophagitis (principal); K44.9 Diaphragmatic hernia without obstruction or gangrene; K31.89 Other diseases of stomach and duodenum; K76.0 Fatty (change of) liver, not elsewhere classified; I10 Essential (primary) hypertension; E11.9 Type 2 diabetes mellitus without complications; M79.7 Fibromyalgia; I69.351 Hemiplegia and hemiparesis following cerebral infarction affecting right dominant side; Z86.73 Personal history of transient ischemic attack (TIA), and cerebral infarction without residual deficits; E78.5 Hyperlipidemia, unspecified; J45.909 Unspecified asthma, uncomplicated; F32.A Depression, unspecified; Z79.82 Long term (current) use of aspirin; Z79.51 Long term (current) use of inhaled steroids; Z79.84 Long term (current) use of oral hypoglycemic drugs; Z79.85 Long-term (current) use of injectable non-insulin antidiabetic drugs; Z79.899 Other long term (current) drug therapy
CPT/HCPCS: 43239; 82947; 88305; 88313; 88342; J2003; J2704; J3010

== ENCOUNTER 2024-10-10 11:15 | Outpatient (AMB) | payer OTHER, SELFPAY ==
--- OUTSIDE RECORDS SUMMARY | 2024-09-02 09:30 | XMS_ITS ---
Author Organization [facility] Address [address] [facility] [address] [place] [address] Care Team Providers Care Medical Claims Analyst Name Role Phone Erika REYNOSO, Nikki Primary Care Provider Vania Uzair Elizalde [phone] REASON FOR VISIT gerd,heartburn Encounters Encounter Location Date Provider Diagnosis [facility] Out[facility] [address] [place], [place] [phone] 09/02/2024 Uzair Ruiz Hiatal hernia K44. 9 and Gastro-esophageal reflux disease without esophagitis K21.9 Assessments Encounter Date Diagnosis (ICD Code) Assessment Notes Treatment Notes Treatment Clinical Notes Section Notes 09/02/2024 Hiatal hernia (ICD-10 - K44.9) 09/02/2024 Gastro-esophagea l reflux disease without esophagitis (ICD-10 - K21.9) Plan Of Treatment Next Appt Details Provider Name:Uzair Ruiz , 01/22/2025 03:40:00 PM, [address] [facility], [address], [place], [address], Progress Notes * Syed TOUSSAINTOB:1965 (59 yo F)Acc No.[id number]:09/02/2024 EGD/MAC Patient: Ruthie MCCANN Provider: Smita Ruiz MD :1965 A ge:59 Y S ex:Female Date:09/02/2024 Address:[address] [place] [address] [address] [facility], [facility] Pcp:Nikki James MD Subjective: * Chief Complaints: [...] 09/02/2024 Generated for Gill garcia/Nahomy/Jenniferransmitting on: 0 10/10/2024 12:45 PM EDT
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
[2024-10-10 11:23] VITALS: BP 108/66; PULSE 85; O2SAT 98; BMI 32.5
== END 2024-10-10 11:50 | disposition home or self-care (01) ==
PROVIDERS: PCP Family Medicine; Visit Provider Hospitalist
DX: J45.50 Severe persistent asthma, uncomplicated (principal); K21.9 Gastro-esophageal reflux disease without esophagitis; L30.9 Dermatitis, unspecified
CPT/HCPCS: 99214

== ENCOUNTER → 2024-10-10 11:15 | Outpatient (BNVA) | payer OTHER, SELFPAY | PROVIDERS: PCP Family Medicine; Visit Provider Hospitalist | DX: J45.50 Severe persistent asthma, uncomplicated (principal); J44.9 Chronic obstructive pulmonary disease, unspecified; R74.8 Abnormal levels of other serum enzymes; L30.9 Dermatitis, unspecified | CPT/HCPCS: 99212 ==

== ENCOUNTER 2024-10-16 11:28 | Outpatient (REF) | payer OTHER, SELFPAY ==
[2024-10-16 14:12] LABS: Alanine Aminotransferase 31 U/L (0-31); Albumin Level 4.4 g/dL (3.5-5.0); Alkaline Phosphatase 68 U/L (39-117); Aspartate Amino Transferase 42 U/L (5-31); Bilirubin Direct 0.2 mg/dL (0.0-0.5); Bilirubin Total 0.7 mg/dL (0.0-1.0); Ferritin 44 ng/mL (10-250); Iron 82 mcg/dL (30-160); Percent Iron Saturation 25 % (15-50); Total Iron Binding Capacity 334 mcg/dL (228-428); Total Protein 7.8 g/dL (6.5-8.0); Unsaturated Iron Binding 252 ug/dL
[2024-10-16 14:22] LABS: Folate 11.5 ng/mL (> or = 4.0); Vitamin B12 < 148 pg/mL (200-900)
[2024-10-17 07:08] LABS: Ceruloplasmin 24 mg/dL (14-48)
[2024-10-17 08:28] LABS: HBS Num1 8.36 mIU/mL (0-7.99); HBc Num1 0.07 S/CO (0.00-0.79); HBsAGNum1 0.55 S/CO (0.00-0.99); Hepatitis A Antibody IgM 0.16 Index (0-0.79); Hepatitis B Core Antibody Nonreactive (Nonreactive); Hepatitis B Surface Antigen Negative (Negative); ~HepC Num1 0.18 S/CO (0.00-0.79); ~Hepatitis A Antibody IgM Nonreactive (Nonreactive); ~Hepatitis C Antibody Nonreactive (Nonreactive)
[2024-10-17 09:56] LABS: HBS Num2 8.68 mIU/mL (0-7.99); HBS Num3 8.23 mIU/mL (0-7.99); ~Hepatitis B Surface Antibody GRAYZONE (Nonreactive)
[2024-10-18 11:09] LABS: Alpha Fetoprotein 2.7 ng/mL
[2024-10-18 14:07] LABS: Mitochondrial Antibodies NEGATIVE (NEGATIVE)
[2024-10-21 03:11] LABS: Smooth Muscle Antibody 46 U (<20)
[2024-10-21 08:44] LABS: Anti Nuclear Antibody Pattern Nuclear, Nucleolar; Anti Nuclear Antibody Screen POSITIVE (NEGATIVE); Anti Nuclear Antibody Titer 1:40 titer
== END 2024-10-16 11:29 | disposition home or self-care (01) ==
LOC: HO.HHCL 11:28
PROVIDERS: PCP Family Medicine; Visit Provider Family Medicine
DX: R74.01 Elevation of levels of liver transaminase levels (principal); E53.8 Deficiency of other specified B group vitamins
CPT/HCPCS: 36415; 80076; 82105; 82390; 82607; 82728; 82746; 83540; 86015; 86038; 86039; 86381; 86704; 86706; 86709; 86803; 87340

== ENCOUNTER 2024-11-16 20:03 | Emergency (ER) | payer OTHER, SELFPAY ==
--- NOTE | ~2024-11-16 | CT_ITS ---
CLINICAL HISTORY: Abd Tenderness; N V CT abdomen and pelvis without contrast Comparison: Abdominal ultrasound 02/29/2024 Findings: No acute findings within visualized lung bases. Liver, spleen, adrenal glands, pancreas, are unremarkable. Cholecystectomy. No renal, ureteral or bladder calculi. Noncalcified and nonaneurysmal abdominal aorta. Anteverted uterus. Nondistended stomach. Normal caliber small bowel. No obstruction. Circumferential wall thickening of the distal sigmoid colon and rectum with associated stranding/inflammatory changes. The remainder of the colon is otherwise unremarkable. No acute appendicitis. No free air or free fluid. No acute osseous abnormality. No lytic or sclerotic osseous lesions No pathologically enlarged lymph nodes. Impression: 1. Constellation of findings as detailed above could represent component of proctocolitis. 2. Additional chronic/nonacute findings as above. This document has been electronically signed by: Veronica Ventura MD on 11/16/2024 23:50:12
[2024-11-16 20:10] VITALS: BP 110/64; PULSE 84; O2SAT 98
[2024-11-16 20:14] VITALS: BP 143/72; PULSE 89; RESP 16; TEMP 36.8; O2SAT 98; BMI 31.6
[2024-11-16 20:48] LABS: MANUAL DIFF FLAG NO
[2024-11-16 20:53] LABS: Hematocrit 43.9 % (37.0-47.0); Hemoglobin 14.6 g/dl (12.0-16.0); Imm Gran Abs Auto 0.08 X10*3/uL (0.00-0.03); Imm Gran Pct Auto 0.6 % (0.0-0.4); Lymphocytes Absolute Auto 0.9 X10*3/uL (1.2-4.9); Mean Corpuscular HGB Conc 33.3 g/dl (31.0-35.0); Mean Corpuscular Hemoglobin 27.0 pg (27.0-33.0); Mean Corpuscular Volume 81.1 fL (80.0-98.0); NRBC Abs Auto 0.000 X10*3/uL (0.0-0.012); NRBC Pct Auto 0.0 /100WBC (0.0-0.2); Platelet Count 246 X10*3/uL (160-400); Red Blood Count 5.41 X10*6/uL (4.20-5.50); White Blood Count 14.1 X10*3/uL (4.8-10.8)
[2024-11-16 21:06] LABS: Alanine Aminotransferase 27 U/L (0-31); Albumin Level 4.5 g/dL (3.5-5.0); Alkaline Phosphatase 72 U/L (39-117); Anion Gap 17 (12-20); Aspartate Amino Transferase 41 U/L (5-31); Blood Urea Nitrogen 20 mg/dL (9-16); Calcium 10.1 mg/dL (8.4-10.2); Carbon Dioxide 24 mmol/L (22-29); Chloride 106 mmol/L (96-108); Creatinine Clr Calc Pharmacy 83.3; Estimated Glomerular Filt Rate > 60; Potassium 4.1 mmol/L (3.3-5.1); Sodium 143 mmol/L (135-145); Total Protein 8.2 g/dL (6.5-8.0)
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
[2024-11-16 22:35] VITALS: RESP 18
--- NOTE | 2024-11-16 22:39 | PC.NURSE ---
Patient medicated per MAR.
[2024-11-17 01:04] VITALS: BP 115/67; PULSE 99; RESP 16; TEMP 37.1; O2SAT 98
[2024-11-17 01:50] VITALS: BP 115/67; PULSE 99; RESP 16; TEMP 37.1; O2SAT 98
== END 2024-11-17 01:50 | disposition home or self-care (01) ==
PROVIDERS: Emergency Provider Emergency Medicine; PCP Family Medicine
DX: K52.29 Other allergic and dietetic gastroenteritis and colitis (principal); R10.13 Epigastric pain; R11.2 Nausea with vomiting, unspecified; E11.9 Type 2 diabetes mellitus without complications; I10 Essential (primary) hypertension; Z79.899 Other long term (current) drug therapy
CPT/HCPCS: 36415; 74176; 80053; 85025; 96361; 96374; 96375; 99284; 99285; J1171; J2405

== ENCOUNTER → 2024-11-16 22:15 | Outpatient (BNV) | payer OTHER, SELFPAY | PROVIDERS: Emergency Provider Emergency Medicine; PCP Family Medicine; Visit Provider Radiology Diagnostic Radiology | DX: R10.13 Epigastric pain (principal); R11.2 Nausea with vomiting, unspecified | CPT/HCPCS: 74176 ==

== ENCOUNTER 2024-12-09 11:43 | Outpatient (AMB) | payer OTHER, SELFPAY ==
--- OUTSIDE RECORDS SUMMARY | 2024-12-09 13:04 | XMS_ITS | Patient Health Record ---
Author Organization [facility] Address [address] [place] [address] Care Team Providers Care Saw Maker Name Role Phone Nikki James MD Primary Care Provider Uzair Ferguson [phone] Allergies Allergen (clinical drug ingredient) Drug/Non Drug Allergy documented on EMR Reaction Allergy Type Onset Date Status morphine Morphine Unknown Drug Allergy Active Iodinated contrast media (substance) Iodinated Contrast Media Unknown Drug Allergy Active amoxicillin Amoxicillin Unknown Drug Allergy Act marychuy Substance with beta adrenergic receptor antagonist mechanism of action (substance) beta timothy (uncoded) Unknown Allergy Active Results Component Value Reference Range Notes Glucose, Whole Blood Reviewed date:09/02/2024 11:34:08 PM Interpretation: Performing Lab:[facility], [address] [place] [phone] Notes/Report: Glucose, Whole Blood 114 60-115 mg/dL METER # : [id number] Pathology (Not yet reviewed by provider) Interpretation: Performing Lab:[facility], [address] [place] [phone] Notes/Report: Reason For Referral No Information Medications Medication SIG (Take, Route, Frequency, Duration) Notes Start Date End Date Status Atorvastatin Calcium 40 MG Oral for 90 Active Jardiance 10 MG Oral for 90 Ac tive Anoro Ellipta 62.5-25 MCG/ACT INHALE 1 PUFF BY MOUTH DAILY Inhalation for 30 J449,Unavail able Active Lisinopril 20 MG Oral for 90 I10,Unavaila ble Active Naproxen 500 MG Oral for 30 Ac tive Aspirin Low Dose 81 MG TAKE 1 TABLET BY MOUTH EVERY DAY Oral for 90 Active Pantoprazole Sodium 40 MG 1 tablet 1/2 t o 1 hour before morning meal Orally Once a day for 30 days 09/02/2024 Active OneTouch Delica Plus [id number] - USE TO TEST BLOOD SUGAR ONCE DAY for 90 Active Breztri Aerosphere 160-9-4.8 MCG/ACT INHALE 2 PUFFS BY MOUTH TWICE DAILY Inhalation for 30 Active Montelukast Sodium 10 MG Oral for 90 [id number],U navai lable Active hydrOXYzine HCl 25 MG Oral for 30 Active hydroCHLOROthiazide 25 MG Oral for 90 I10,Un availa ble Active Ozempic (1 MG/DOSE) 4 MG/3ML INJECT 1 MG UNDER THE SKIN EVERY 7 DAYS Subcutaneous for 28 Active DULoxetine HCl 30 MG TAKE 1 CAPSULE BY MOUTH DAILY Oral for 90 Active Pantoprazole Sodium 20 MG Oral for 90 Active Vitamin D3 25 MCG (1000 UT) TAKE 1 CAPSU LE BY MOUTH EVERY DAY Oral for 30 M797,Unavail able Active Immunizations Vaccine Route Administration Date Status Comme nts Influenza Unknown 02/13/2024 Administered Social History Tobacco Use: Social History Observation Description Date Details (start date - stop date) Never Smoker NA - NA Tobacco Use/Smoking Question Answer Notes Patient is a nonsmoker Alcohol Screen Question Answer Notes Did you have a drink containing alcohol in the p ast year? No Points 0 Interpretation Negative Section Notes: Nonsmoker; no sig alcohol Problems Problem Type SNOMED Code ICD Code Onset Dates Problem Status W/U Status Risk Notes Problem Heartburn (06679488) Heartburn (R12) Active confirmed Problem Elevated liver enzymes level (493129788) Elevated liver enzymes (R74.8) Active confirmed Problem Fatty liver (720091168) Fatty liver (K76.0) Active confirmed Problem Gastroesophageal reflux disease (disorder) (244413547) Chronic GERD (K21.9) Active confirmed Vital Signs Temperature 97.8 degrees Fahrenheit 06/07/2024 Blood pressure diastolic 00 mm Hg 06/07/2024 Height 5 ft 4 in in 06/07/2024 Blood pressure systolic 000 mm Hg 06/07/2024 Weight 212 lbs 06/07/2024 BMI 36.39 kg/m2 06/07/2024 Encounters Encounter Location Date Provider Diagnosis [facility] Outpatient [address] [place] [phone] 09/02/2024 Uzair Ruiz Hiatal hernia K44.9 and Gastro-esophageal reflux disease without esophagitis K21.9 [facility] [address] [place] [address] 06/07/2024 Uzair Ruiz Chronic GERD K21.9 ; Heartburn R12 ; Fatty liver K76.0 and Elevated liver enzymes R74.8 [facility] [address] [place] [address] 08/26/2024 Uzair Ruiz [facility] [address] [place] [address] 09/02/2024 Uzair Ruiz [facility] [address] [place] [address] 09/17/2024 Uzair Ruiz Assessments Encounter Date Diagnosis (ICD Code) Assessment Notes Treatment Notes Treatment Clinical Notes Section Notes 09/02/2024 Gastro-esophage al reflux disease without esophagitis (ICD-10 - K21.9) 09/02/2024 Hiatal hernia (ICD-10 - K44.9) 06/07/2024 Heartburn (ICD-10 - R12) Overall, Ruthie is not having any worrisome GI complaints. However, given her longstanding history of reflux with worsening symptoms, despite being on a PPI, I did recommend an upper endoscopy for further evaluation to rule out significant esophagitis, Hendrickson's esophagus, and/or a hiatal hernia. Given her underlying history of asthma it would be important to exclude any significant reflux and esophagitis that might be contributing to that as well. Full consent is obtained from her for the endoscopy, including risks of bleeding and perforation. She was given the below instructions regarding adjustment of her medications for the procedure. The procedure will be done with monitored anesthesia care. In regard to her elevated LFTs in the past and what appears to be fatty liver on imaging studies, as well as a negative liver workup in the past, we did discuss the diagnosis of fatty liver with his potential for progressive liver disease, including cirrhosis. I do not think she has any component of autoimmune hepatitis based on previous studies and the clinical history.We did review her multiple risk factors including that of her obesity, diabetes, and hyperlipidemia. We discussed the importance of trying to control these risk factors as best as possible. We shall follow her LFTs and decide at some point if she might need a liver biopsy and/or treatment for the fatty liver besides just lifestyle modifications. Ruthie and her daughter were comfortable with this plan. Thank you again for allowing me to participate in Ruthie's care. I shall continue to keep you advised of her progress. 06/07/2024 Chronic GERD (ICD-10 - K21.9) DO NOT TAKE OZEMPIC FOR 7 DAYS BEFORE THE UPPER ENDOSCOPY DO NOT TAKE JARDIANCE FOR 3 DAYS BEFORE THE UPPER ENDOSCOPY DO NOT TAKE ASPIRIN ON THE DAY OF THE UPPER ENDOSCOPY Overall, Ruthie is not having any worrisome GI complaints. However, given her longstanding history of reflux with worsening symptoms, despite being on a PPI, I did recommend an upper endoscopy for further evaluation to rule out significant esophagitis, Hendrickson's esophagus, and/or a hiatal hernia. Given her underlying history of asthma it would be important to exclude any significant reflux and esophagitis that might be contributing to that as well. Full consent is obtained from her for the endoscopy, including risks of bleeding and perforation. She was given the below instructions regarding adjustment of her medications for the procedure. The procedure will be done with monitored anesthesia care. In regard to her elevated LFTs in the past and what appears to be fatty liver on imaging studies, as well as a negative liver workup in the past, we did discuss the diagnosis of fatty liver with his potential for progressive liver disease, including cirrhosis. I do not think she has any component of autoimmune hepatitis based on previous studies and the clinical history.We did review her multiple risk factors including that of her obesity, diabetes, and hyperlipidemia. We discussed the importance of trying to control these risk factors as best as possible. We shall follow her LFTs and decide at some point if she might need a liver biopsy and/or treatment for the fatty liver besides just lifestyle modifications. Ruthie and her daughter were comfortable with this plan. Thank you again for allowing me to participate in Ruthie's care. I shall continue to keep you advised of her progress. 06/07/2024 Fatty liver (ICD-10 - K76.0) Overall, Ruthie is not having any worrisome GI complaints. However, given her longstanding history of reflux with worsening symptoms, despite being on a PPI, I did recommend an upper endoscopy for further evaluation to rule out significant esophagitis, Hendrickson's esophagus, and/or a hiatal hernia. Given her underlying history of asthma it would be important to exclude any significant reflux and esophagitis that might be contributing to that as well. Full consent is obtained from her for the endoscopy, including risks of bleeding and perforation. She was given the below instructions regarding adjustment of her medications for the procedure. The procedure will be done with monitored anesthesia care. In regard to her elevated LFTs in the past and what appears to be fatty liver on imaging studies, as well as a negative liver workup in the past, we did discuss the diagnosis of fatty liver with his potential for progressive liver disease, including cirrhosis. I do not think she has any component of autoimmune hepatitis based on previous studies and the clinical history.We did review her multiple risk factors including that of her obesity, diabetes, and hyperlipidemia. We discussed the importance of trying to control these risk factors as best as possible. We shall follow her LFTs and decide at some point if she might need a liver biopsy and/or treatment for the fatty liver besides just lifestyle modifications. Ruthie and her daughter were comfortable with this plan. Thank you again for allowing me to participate in Ruthie's care. I shall continue to keep you advised of her progress. 06/07/2024 Elevated liver enzymes (ICD-10 - R74.8) Overall, Ruthie is not having any worrisome GI complaints. However, given her longstanding history of reflux with worsening symptoms, despite being on a PPI, I did recommend an upper endoscopy for further evaluation to rule out significant esophagitis, Hendrickson's esophagus, and/or a hiatal hernia. Given her underlying history of asthma it would be important to exclude any significant reflux and esophagitis that might be contributing to that as well. Full consent is obtained from her for the endoscopy, including risks of bleeding and perforation. She was given the below instructions regarding adjustment of her medications for the procedure. The procedure will be done with monitored anesthesia care. In regard to her elevated LFTs in the past and what appears to be fatty liver on imaging studies, as well as a negative liver workup in the past, we did discuss the diagnosis of fatty liver with his potential for progressive liver disease, including cirrhosis. I do not think she has any component of autoimmune hepatitis based on previous studies and the clinical history.We did review her multiple risk factors including that of her obesity, diabetes, and hyperlipidemia. We discussed the importance of trying to control these risk factors as best as possible. We shall follow her LFTs and decide at some point if she might need a liver biopsy and/or treatment for the fatty liver besides just lifestyle modifications. Ruthie and her daughter were comfortable with this plan. Thank you again for allowing me to participate in Ruthie's care. I shall continue to keep you advised of her progress. Plan Of Treatment Pending Test Test Name Order Date Pathology 09/02/2024 Future Test Test Name Order Date UPPER GI ENDOSCOPY 06/07/2024 Next Appt Details Provider Name:Uzair Ruiz , 01/22/2025 03:40:00 PM, [address] [facility], [address], [place], [address], Insurance Providers Payer Name Payer Address Payer Phone Subscriber Number Group Number Insured Name Patient Relationship to Insured Coverage Start Date Coverage End Date [facility] [address] Attn Claims JOHN Arora [id number] Ruthie Toussaint Self - patient is the insured Medical (General) History Medical History History ICD Code NIDDM High blood pressure Fibromyalgia Arthritis Stroke in 2009 due to aneurysm with surg debora-right side weakness Asthma-Sees Dr. Briggs Denies OR or renal disease Negative colonoscopy in approx 2021 Hyperlipidemia Depression Hospitalization in 2021 for elevated LFTs which did resolve. Negative workup included negative hepatitis A, B, and C studies, negative VONNIE, minimally elevated smooth muscle antibody of 1-40. Imaging studies with CT and MRI were unremarkable and without any sign of biliary disease or portal hypertension. Her LFTs have been intermittently elevated since then and an ultrasound in 2023 described a fatty liver, but without any sign of splenomegaly nor ascites. GERD Denies OR or renal disease Surgical History Surgery Date(Month/Year) 2 C-sections Fractured coccyx Gallbladder 2 carpal tunnel surgeries each wrist
--- OUTSIDE RECORDS SUMMARY | 2024-12-09 13:04 | XMS_ITS | Encounter Summary ---
Author Organization [facility] [employer] [facility] Address [address] [facility] [address] [place] [address] Care Team Providers Care Automotive Center Manager Name Role Phone Nikki James MD Primary Care Provider [phone] Mary Rain PharmD Unavailable Gerson Briggs Unavailable [phone] Clemente Babatunde Holley DO Unavailable [phone] Delaney Cantu Unavailable Uzair Ruiz MD Unavailable Reason for Visit * Reason Comments Med Refill Encounter Details Date Type Department Care Team (Late st Contact Info) Description 08/02/2024 Refill [facility] [address] [place], [place] [phone] Nikki James MD [address] [place], [place] [phone] Seasonal allergies Social History Tobacco Use Types [...] Care Team (Late st Contact Info) Description 12/30/2024 11:30 AM EDT Clinical Support [facility] [address] [place] [address] documented as of this encounter Goals Goal Patient Goal Type Associated Problems Recent Progress Patient-Stated? Author Blood Pressure < 140/90 Blood Pressure 130/90(2024 11:20 AM EDT) No Piers-Gambl e, Mary, PharmD Hemoglobin A1c < 7 Result Component 6.4( 12:00 AM EDT) No Piers-Gambl e, Mary, PharmD documented as of this encounter Visit Diagnoses Diagnosis Seasonal allergies Allergic rhinitis, cause unspecified documented in this encounter Additional Health Concerns Assessment Noted Time PHQ-9 Depression Total Score: 12 024 10:49 AM EDT documented as of this encounter Care Teams Automotive Center Manager Relationship Specialty Start Date End Date Nikki James MD [address] [place] [address] PCP - General Family Medicine 04/24/18 Mary Rain PharmD [address] [place] [address] Pharmacist Internal Medicine 01/26/23 Gerson Briggs [address] [place] [address] Pulmonary Disease 04/08/24 Babatunde Cornejo DO [address] [place] [address] Endocrinology 04/08/24 Delaney Cantu [address] [place] [phone] Dermatology 04/08/24 Uzair Ruiz MD [address] [place] [address] Gastroenterology 09/05/[address] [facility] [address] [place] [id number] Orthopaedic Surgery 05/15/24 documented as of this encounter
--- OUTSIDE RECORDS SUMMARY | 2024-12-09 13:05 | XMS_ITS | Clinical Summary ---
Author Organization [facility] Address [address] [place] [address] Care Team Providers Care Catalog Librarian Name Role Phone Unavailable Primary Care Provider [...]
--- OUTSIDE RECORDS SUMMARY | 2024-12-09 13:05 | XMS_ITS | Clinical Summary ---
Author Organization [facility] Address [address] [facility] [address] [place] [phone] Phone Care Team Providers Care Food Consultant Name Role Phone Nikki James MD Primary Care Provi rio Allergies Active Allergy Reactions Criticality Noted Date Comments Amoxicillin Anaphylaxis High 04/21/2022 Beta-Blockers (Beta-Adrenergic Blocking Agts) Shortness Of Breath High 04/21/2022 Iodinated Contrast Media 04/21/2022 Morphine Anxiety,Headaches,Re stless ness Low 04/21/2022 Penicillins Anaphylaxis High 04/21/2022 Medications lancets 33 gauge Misc 1 each daily. USE TO TEST BLOOD SUGAR ONCE A DAY 02/12/20 24 Active BREZTRI AEROSPHERE 160-9-4.8 mcg/actuation inhaler Inhale 2 puffs into the lungs 2 (two) times a day. Active aspirin 81 MG EC tablet Take 1 tablet by mouth daily. 01/25/20 24 Active cholecalciferol, vitamin D3, 25 mcg (1,000 unit) capsule Take 1,000 Units by mouth daily. Active cyanocobalamin, vitamin B-12, 250 MCG tablet Take 250 mcg by mouth daily. 06/28/19 24 Active cyclobenzaprine (FLEXERIL) 5 MG tablet Take 5 mg by mouth 3 (three) times a day as needed. 03/07/20 23 Active DULoxetine (CYMBALTA) 30 MG capsule Take 30 mg by mouth daily. Active hydroCHLOROthiaz pablo 25 MG tablet Take 25 mg by mouth daily. 12/28/19 24 Active hydrOXYzine (ATARAX) 25 MG tablet Take 25 mg by mouth nightly at bedtime as needed. 06/29/19 24 Active levocetirizine (XYZAL) 5 MG tablet Take 5 mg by mouth daily. Active lisinopril (PRINIVIL,ZESTRI L) 20 MG tablet Take 20 mg by mouth daily. 12/28/19 24 Active montelukast (SINGULAIR) 10 mg tablet Take 10 mg by mouth nightly at bedtime. 12/28/19 24 Active FREESTYLE LITE Strp stripsIndication s:Type 2 diabetes mellitus with hyperglycemia, without long-term current use of insulin 1 each by Miscellaneous route 2 (two) times a day. 200 strip 3 04/15/20 24 Active ezetimibe (ZETIA) 10 mg tabletIndication s:Type 2 diabetes mellitus without complication, with long-term current use of insulin Take 1 tablet (10 mg total) by mouth daily. 90 tablet 1 11/20/19 25 Active semaglutide (OZEMPIC) 2 mg/dose (8 mg/3 mL) subcutaneous injection penIndications:T ype 2 diabetes mellitus without complication, with long-term current use of insulin Inject 2 mg under the skin once a week. 9 mL 11/20/19 25 Active JARDIANCE 10 mg tabletIndication s:Type 2 diabetes mellitus without complication, with long-term current use of insulin Take 1 tablet (10 mg total) by mouth daily. 90 tablet 1 11/20/19 25 Active JARDIANCE 10 mg tabletIndication s:Type 2 diabetes mellitus with hyperglycemia, without long-term current use of insulin Take 1 tablet (10 mg total) by mouth daily. 90 tablet 1 04/15/20 24 025 Discontin ued(Reord er) semaglutide (OZEMPIC) 2 mg/dose (8 mg/3 mL) subcutaneous injection penIndications:T ype 2 diabetes mellitus without complication, with long-term current use of insulin INJECT 2MG UNDER THE SKIN EVERY 7 DAYS 9 mL 09/10/19 25 025 Discontin ued(Reord er) Active Problems Problem Noted Date Diagnosed Date Hyperlipidemia LDL goal <70 11/19/2024 Assessment & Plan (11/19/2024 11:29 AM EDT): Based on new guidelines the LDL should be less than 70 and her LDL is 88 mg/dL she states that she had elevated transaminases with statins will prescribe ezetimibe and repeat lab work in 6 months. Type 2 diabetes mellitus wit hout complication, with long-term current use of insulin 07/26/2024 Assessment & Plan (11/19/2024 11:26 AM EDT): Controlled. Hemoglobin A1c 6.4% she should continue current regimen. Repeat lab work prior to the follow-up visit in 6 months. Assessment & Plan (07/26/2024 11:47 AM EDT): Controlled. Hemoglobin A1c 6.2%. She would like to have further weight loss will increase the dose of Ozempic to 2 mg. She should continue Jardiance. She is not having hypoglycemia. Type 2 diabetes mellitus wit h hyperglycemia, without long-term current use of insulin 04/15/2024 Assessment & Plan (04/15/2024 12:34 PM EST): Uncontrolled. Hemoglobin A1c 7.7%. She is tolerating Ozempic 0.5 mg she has done 2 injections were increase the dose to 1 mg weekly continue Jardiance 10 mg but this also could be increased to 25 mg if required. Encounters Date Type Department Care Team Description 11/19/2024 11:30 AM EDT Office Visit [facility] [address] [place] [address] [place] [address] Babatunde Cornejo DO Type 2 diabetes mellitus without complication, with long-term current use of insulin (Primary Dx); Hyperlipidemia LDL goal <70 11/04/2024 2:33 PM EDT - 11/04/2024 11:59 PM EDT Hospital Encounter [facility] [address] [place] [address] Babatunde Cornejo DO Discharge Disposition: Home or Self Care 09/09/2024 Refill [facility] [address] [place] [address] Babatunde Cornejo DO Medication Refill from Last 3 Months Social History Tobacco Use Types Packs/Day Years Used Date Smoking Tobacco: Never Smokeless Tobacco: Never Alcohol Use Standard Drinks/Week Comments Never 0 (1 standard drink = 0.6 oz pur e alcohol) Education Answer Date Recorded Are you interested in more education? Not on hodan e 12/11/2023 Are you concerned about learning? Not on file 12/11/2023 No 12/11/2023 No 12/11/2023 Digital Access Answer Date Recorded No 12/11/2023 No 12/11/2023 Reliable internet access at home? Not on file 12/11/2023 Device with a working camera? Not on file Comments Unknown Sex and Gender Information Value Date Recorded Sex Assigned at Not on file Legal Sex Female 2:10 PM EDT Gender Identity Not on file Sexual Orientation Not on file Last Filed Vital Signs Vital Sign Reading Time Taken Comments Blood Pressure 112/62 11/19/2024 11:20 AM EDT Pulse 78 11/19/2024 11:20 AM EDT Temperature 36.3 C (97.4 F) 11/19/2024 11:20 AM EDT Respiratory Rate - - Oxygen Saturation 97% 11/19/2024 11:20 AM EDT Inhaled Oxygen Concentration - - Weight 82.1 kg (181 lb) 11/19/2024 11:20 AM EDT Height 162.6 cm (5' 4.02 ) 11/19/2024 11:20 AM E DT Body Mass Index 31.05 11/19/2024 11:20 AM EDT Plan of Treatment Upcoming Encounters Date Type Department Care Team (Late st Contact Info) Description 05/26/2025 11:30 AM EST Office Visit [facility] [address] [place] [address] Babatunde Cornejo DO [address] [place] [address] [email or web address] Health Maintenance Due Date Last Done Comments CREATININE LEVEL 1966 POTASSIUM LEVEL 1966 DEPRESSION SCREENING 1978 HEPATITIS C SCREENING 1984 HIV ONE-TIME SCREENING (18-65 YEARS) 1984 COLOGUARD 08/17/2011 COLONOSCOPY 08/17/2011 COLORECTAL CANCER SCREENING 08/17/2011 FIT TEST 08/17/2011 FOBT 08/17/2011 SIGMOIDOSCOPY 08/17/2011 VIRTUAL COLONOSCOPY 08/17/2011 ZOSTER VACCINES (1 of 2) 2016 PAP SMEAR 12/26/2017 12/26/2014 PNEUMOCOCCAL VACCINES (50+ years) (2 of 2 - PCV) 06/20/2021 06/20/2020, 02/07/2016, 01/27/2014 Adult Td,Tdap Booster 10/15/2023 10/14/2013 COVID-19 VACCINE (1 - season) 2023 DIABETIC EYE EXAM 04/15/2024 MAMMOGRAM 02/23/2025 02/23/2023 HEMOGLOBIN A1C 05/09/2025 11/06/2024, 10/22, 10/16/2024, Additional history exists BLOOD PRESSURE 05/22/2025 11/19/2024 LIPID PANEL 11/04/2025 11/04/2024, 02/12/2024 SMOKING STATUS SCREENING (Once After 26 Yrs) Completed 11/19/2024 HEPATITIS A VACCINES Aged Out No long er eligible based on patient's age to complete this topic HIB VACCINES Aged Out No longer eligi ble based on patient's age to complete this topic MENINGOCOCCAL VACCINES (ACWY) Aged Out No longer eligible based on patient's age to complete this topic MENINGOCOCCAL VACCINES (B) Aged Out N o longer eligible based on patient's age to complete this topic Medical Devices Not on file Procedures Procedure Name Priority Date/Time Associated Diagnosis Comments HEMOGLOBIN A1C Routine 11/04/2024 2:51 PM EDT Type 2 diabetes mellitus without complication, with long-term current use of insulin LIPID PANEL Routine 11/04/2024 2:51 PM EDT Type 2 diabetes mellitus without complication, with long-term current use of insulin from Last 3 Months Results * (ABNORMAL) Hemoglobin A1c (11/04/2024 2:51 PM EDT) HEMOGLOBIN A1C 6.4(H) 4.3 - 5.8 % [facility] Blood 11/04/2024 2:51 PM EDT 11/04/2024 2:58 PM EDT Babatunde Cornejo DO LAB BLOOD ORDERABLES Final Resul t Performing Organization Address [facility] Co de Phone Number [address] [phone] * (ABNORMAL) Lipid panel (11/04/2024 2:51 PM EDT) HDL 55 mg/dL [facility] Comment: Interpretation <40 mg/dL: Low HDL cholesterol (major risk factor for CHD) Greater than or equal to 60 mg/dL: High HDL cholesterol ( negative risk factor for CHD) HDL - cholesterol is affected by a number of factors, e.g. smoking, excerise, hormones, sex and age. CHOLESTEROL 160 0 - 240 mg/dL [facility] TRIGLYCERIDES 84 30 - 160 mg/dL [facility] LDL 88 50 - 129 mg/dL [facility] Comment: LDL levels in terms of risk for coronary heart disease: <100 mg/dL: Optimal 100-129 mg/dL: Near or above optimal 130-159 mg/dL: Borderline high 160-189 mg/dL: High >190 mg/dL: Very High CARDIAC RISK RATIO 2.9(L) 3.3 - 4.4 C [facility] Blood 11/04/2024 2:51 PM EDT 11/04/2024 2:58 PM EDT us Babatunde Cornejo DO LAB BLOOD ORDERABLES Final Resul t Performing Organization Address [facility] Co de Phone Number [address] [address] from Last 3 Months Insurance MEDICARE PART A & B [facility] ONE CARE MEDICARE REPLACEMENT MEDICARE PART A & B ONE CARE MEDICARE REPLACEMENT MEDICARE PART A & B [facility] CARE MEDICARE REPLACEMENT MEDICARE PART A & B [facility] CARE MEDICARE REPLACEMENT MEDICARE PART A & B Member Subscriber Plan / Payer (Ef fective 2012-Present) Name:Ruthie Toussaint Member ID:[id number] Relation to Subscriber:Self Name:Ruthie Toussaint Subscriber ID:[id number] Payer ID:[id number] Group ID:Not on file Type:Medicare Address: [employer] [address] ONE CARE MEDICARE REPLACEMENT MEDICARE PART A & B [facility] CARE MEDICARE REPLACEMENT Care Teams Food Consultant Relationship Specialty Start Date End Date Erika, Nikki Genna, MD [address] [place] [address] PCP - General Family Medicine 12/08/23 Additional Source Comments The information contained in this document represents components of the legal health record. It is not the complete legal health record.[facility]
== END 2024-12-09 11:45 | disposition home or self-care (01) ==
LOC: HO.HMGAL 11:43
PROVIDERS: PCP Family Medicine; Visit Provider Registered Nurse Emergency
DX: J30.89 Other allergic rhinitis (principal)
CPT/HCPCS: 95117; 95165

== ENCOUNTER 2024-12-30 13:50 | Outpatient (AMB) | payer OTHER, SELFPAY ==
--- OUTSIDE RECORDS SUMMARY | 2024-09-02 09:30 | XMS_ITS ---
Author Organization [facility] Address [address] [facility] [address] [place] [address] Care Team Providers Care Radio Repairer Domestic Name Role Phone Erika REYNOSO, Nikki Primary Care Provider Vania Uzair Elzialde [phone] REASON FOR VISIT gerd,heartburn Encounters Encounter Location Date Provider Diagnosis [facility] [place] [address] [place], [place] [phone] 09/02/2024 Uzair Ruiz Hiatal hernia K44. 9 and Gastro-esophageal reflux disease without esophagitis K21.9 Assessments Encounter Date Diagnosis (ICD Code) Assessment Notes Treatment Notes Treatment Clinical Notes Section Notes 09/02/2024 Hiatal hernia (ICD-10 - K44.9) 09/02/2024 Gastro-esophagea l reflux disease without esophagitis (ICD-10 - K21.9) Plan Of Treatment Next Appt Details Provider Name:Uzair Ruiz , 01/22/2025 03:40:00 PM, [address] [facility], [address], [place], [address], Progress Notes * Syed TOUSSAINTOB:1965 (59 yo F)Acc No.[id number]:09/02/2024 EGD/MAC Patient: Ruthie MCCANN Provider: Smita Ruiz MD :1965 A ge:59 Y S ex:Female Date:09/02/2024 Address:[address] [place] [address] [address] [facility], [facility] Pcp:Nikki James MD Subjective: * Chief Complaints: [...] MD Date: 0 09/02/2024 Generated for Gill garcia/Nahomy/Jenniferransmitting on: 0 12/30/2024 08:49 AM EDT
--- OUTSIDE RECORDS SUMMARY | 2024-12-30 16:07 | XMS_ITS | Encounter Summary ---
Author Organization [employer] Address [address] [facility] [address] [place] [address] Care Team Providers Care Filtration Supervisor Name Role Phone Nikki James MD Primary Care Provider [phone] Mary Rain PharmD Unavailable Gerson Briggs Unavailable [phone] Clemente Babatunde Babb DO Unavailable [phone] Delaney Cantu Unavailable Uzair Ruiz MD Unavailable Reason for Visit * Reason Onset Date Comments Nurse Triage 11/18/2024 Encounter Details Date Type Department Care Team (Late st Contact Info) Description 11/18/2024 Telephone [facility] [address] [place], [place] [phone] Nikki James MD [address] [place], [place] [phone] Nurse Triage Social History Tobacco Use Types [...] housing situation today? I have true christianson 10/16/[address] you li ve. Do you have problems with any of the following? None of the above 10/16/2024 Food Insecurity Answer Date Recorded Within the past 12 months, y ou worried that your food would run out before you got money to buy more: Never True 10/16/2024 Within the past 12 months,th e food you bought just didn't last and you didn't have enough money to get more: Never True Transportation Answer Date Recorded In the past 12 months, has l ack of transportation kept you from medical appts, meetings, work or from getting things needed for daily living? No 10/16/2024 Utilities Answer Date Recorded In the past 12 months, has t he electric, gas, oil or water company threatened to shut off services in your home? No 10/16/2024 Depression Answer Date Recorded Patient Health Questionnaire-2 Score 2 12/28/2023 Internet Access Answer Date Recorded Internet Access Q1 Yes 10/16/2024 Internet Access Q2 Not on file 10/16/2024 Comments Unknown Sex and Gender Information Value Date Recorded Sex Assigned at Female 02/21/2022 10:15 AM EDT Legal Sex Female 10:15 AM EDT Gender Identity Female 02/21/2022 10:15 AM EDT Sexual Orientation Straight 02/21/2022 10 :15 AM EDT documented as of this encounter Miscellaneous Notes * Telephone Encounter - Patricia Elliott RN - 11/18/2024 4:23 PM EDT [facility] ED noted from 11/16/2024 printed and will be scanned into pt chart under media. * Telephone Encounter - Lucero Mares RN - 11/18/2024 4:02 PM EDT No systems security consultant needed as this policy writer speaks [place] Island[place]. Call returned to [facility] to triage belowat [phone]. Reports having nausea since Monday. Per pt seen at [facility] ER on Monday for sx. Ptwas given medications for nausea while at ER . Per pt was having constipation. Pt found to have colitis. Elevated WBC. Pt given abx, tylenol and ibuprofen . Pt is taking meds with food and drinking plenty of water. Pt offered to have instED see patient or seek [facility]. Pt states called pharmacy and hasa med pendign but not sure if ondansetron. Pt agrees to take number for isntED PRN. Reviewed home care advise, ER precautions and reasons to call back. Will send to PCP to review and further advise if short course Rx for ondansetron can be sent for patient. Sent to team to obtain [facility] ER notes for provider review as well. Protocol Used: Nausea (Adult) Protocol-Based Disposition: Callback or Video Visit by PCP Today Video visit offer not recorded Positive Triage Question: * Taking prescription medication that could cause nausea (e.g., narcotics/opiates, antibiotics, OCPs, many others) * All higher-acuity triage questions were negative Care Advice Discussed: * Reassurance and Education - Nausea * Clear Fluids * Solid Foods * Reasons To Call Back - Nausea lasts over 1 week - You become worse * Telephone Encounter - Janusz Briggs - 11/18/2024 3:51 PM EDT Symptom: Nausea But No Vomiting Outcome: Schedule an appointment to be seen within 3 days Reason: Caller denied all higher acuity questions Please contact pt at [phone]. ([place] Islander Speaker) documented in this encounter Plan of Treatment Not on file documented as of this encounter Goals Goal Patient Goal Type Associated Problems Recent Progress Patient-Stated? Author Blood Pressure < 140/90 Blood Pressure 130/90(2024 11:20 AM EDT) No Piers-Mary Mcadams, PharmD Hemoglobin A1c < 7 Result Component 6.4( 12:00 AM EDT) No Dawoods-Gambl Mary hawk, PharmD documented as of this encounter Visit Diagnoses Not on filedocumented in this encounter Additional Health Concerns Assessment Noted Time PHQ-9 Depression Total Score: 12 024 10:49 AM EDT documented as of this encounter Care Teams Filtration Supervisor Relationship Specialty Start Date End Date Nikki James MD [address] [place] [address] PCP - General Family Medicine 04/24/18 Mary Rain PharmD [address] [place] [address] Pharmacist Internal Medicine 01/26/23 Gerson Briggs [address] [place] [address] Pulmonary Disease 04/08/24 Babatunde Cornejo DO [address] [place] [address] Endocrinology 04/08/24 Delaney Cantu [address] [place] [phone] Dermatology 04/08/24 Uzair Ruzi MD [address] [place] [address] Gastroenterology 09/05/24 Dr. Bravo [facility] [address] [place] [id number] Orthopaedic Surgery 05/15/24 documented as of this encounter
--- OUTSIDE RECORDS SUMMARY | 2024-12-30 16:07 | XMS_ITS | Clinical Summary ---
Author Organization [employer] Address [address] [place] [address] Care Team Providers Care Senior Physician Name Role Phone Nikki James MD Primary Care Provider [phone] Mary Rain PharmD Unavailable [phone] Gerson Briggs Unavailable [phone] Babatunde Cornejo DO Unavailable [phone] Delaney Cantu Unavailable Uzair Ruiz MD Unavailable Allergies Active Allergy Reactions Criticality Noted Date Comments Amoxicillin Anaphylaxis High 04/21/2022 Beta Adrenergic Blockers Shortness of breath High Iodinated Contrast Media 04/21/2022 Morphine Headache 04/21/2022 Penicillins Anaphylaxis High 04/21/2022 Medications * This document contains information received from the source organization and may not represent a complete record from that organization. hydrOXYzine HCl (Atarax) 25 MG tabletIndications: Dermatitis, unspecified TAKE 1 TABLET(25 MG) BY MOUTH AT BEDTIME NEEDED FOR ITCHING 60 tablet 1 06/29/19 24 Active Turmeric Curcumin 500 MG capsuleIndications :Vitamin deficiency Take 1 capsule by mouth in the morning. 06/28/19 24 Active Dupixent 300 MG/2ML injectionIndicatio ns:Moderate persistent asthma without complication 02/29/20 23 Active lidocaine (Lidoderm) 5 % patchIndications:C hronic midline low back pain, unspecified whether sciatica present UNWRAP AND APPLY 1 PATCH TOPICALLY TO MOST PAINFUL AREA DAILY FOR UP TO 12 HOURS 03/07/20 23 Active cyclobenzaprine (Flexeril) 5 MG tabletIndications: Chronic midline low back pain, unspecified whether sciatica present Take 5 mg by mouth if needed in the morning, at noon, and at bedtime for muscle spasms. 03/07/20 23 Active cyancobalamine (Vitamin B-12) 250 MCG tabletIndications: Vitamin deficiency Take 250 mcg by mouth in the morning. 06/28/19 24 Active ciclesonide (Alvesco) 160 MCG/ACT inhalerIndications :Moderate persistent asthma without complication Inhale. 06/01/19 21 Active DULoxetine (Cymbalta) [address] capsuleIndications :Depression, recurrent (CMS/HCC) Take 30 mg by mouth Once per day. 11/29/19 24 Active triamcinolone (Kenalog) 0.1 % creamIndications:D ermatitis 11/17/19 24 Active Anoro Ellipta 62.5-25 MCG/ACT aerosol powderIndications: Moderate persistent asthma without complication INHALE 1 PUFF BY MOUTH DAILY 12/17/19 24 Active lisinopril 20 MG tabletIndications: Primary hypertension Take 1 tablet (20 mg) by mouth Once per day. 90 tablet 3 12/28/19 24 Active empagliflozin (Jardiance) 10 MGIndications:Type 2 diabetes mellitus without complication, without long-term current use of insulin ([facility]) Take 1 tablet by mouth once daily 30 tablet 3 12/28/19 24 Active atorvastatin (Lipitor) 40 MG tabletIndications: Type 2 diabetes mellitus without complication, without long-term current use of insulin ([facility]) Take 1 tablet (40 mg) by mouth Once per day. 90 tablet 3 12/28/19 24 Active montelukast (Singulair) 10 MG tabletIndications: Moderate persistent asthma without complication Take 1 tablet (10 mg) by mouth at bedtime. 90 tablet 3 12/28/19 24 Active cholecalciferol (Vitamin D-3) 25 MCG (1000 UT) capsuleIndications :Vitamin D deficiency Take 1 capsule (25 mcg) by mouth Once per day. 60 capsule 2 12/28/19 24 Active Continuous Glucose Sensor (FreeStyle Mariusz 2 Sensor) miscIndications:Ty pe 2 diabetes mellitus without complication, without long-term current use of insulin ([facility]) Use as directed to monitor glucose ever 8 hours. Replace sensor every 14 days. 2 each 11 12/28/19 24 Active glucose blood (FreeStyle Precision Reza Test) test stripIndications:T ype 2 diabetes mellitus without complication, without long-term current use of insulin ([facility]) Test blood sugar q 8 hours 100 each 12 12/28/19 24 Active Aspirin Low Dose 81 MG EC tabletIndications: Abnormal echocardiogram TAKE 1 TABLET BY MOUTH EVERY DAY 90 tablet 3 01/25/20 24 Active semaglutide (Ozempic, 0.25 or 0.5 MG/DOSE,) 2 MG/1.5ML solution pen-injectorIndica tions:Type 2 Diabetes Mellitus Inject 0.25 mg subcutaneously q week x 4 weeks, then increased to 0.5mg subcutaneously q week after 3 mL 3 02/12/20 24 Active ROFLUMILAST POIndications:Mode rate persistent asthma without complication Take by mouth. Ac tive Budeson-Glycopyrro l-Formoterol (Breztri Aerosphere) 160-9-4.8 MCG/ACT aerosolIndications :Moderate persistent asthma without complication Inhale. Active pantoprazole (ProtoNix) 20 MG EC tabletIndications: Pain TAKE 1 TABLET BY MOUTH EVERY DAY 90 tablet 1 05/29/19 25 Active Budeson-Glycopyrro l-Formoterol (Breztri Aerosphere) 160-9-4.8 MCG/ACT aerosolIndications :Moderate persistent asthma without complication Inhale 2 puffs 2 times daily. Active levocetirizine (Xyzal) 5 MG tabletIndications: Seasonal allergies TAKE 1 TABLET BY MOUTH EVERY DAY 30 tablet 1 08/03/19 25 Active Lancets (OneTouch Delica Plus [id number]) miscIndications:Ty pe 2 diabetes mellitus without complication, without long-term current use of insulin ([facility]) USE TO TEST BLOOD SUGAR ONCE A DAY 100 each 11 10/17/19 25 Active cyanocobalamin (Vitamin B-12) 1000 MCG/ML injectionIndicatio ns:B12 deficiency Inject 1ml IM weekly x 4 weeks then monthly x 12 months 4 mL 10/19/19 25 Active glucose blood test strip USE TO TEST BLOOD SUGAR ONCE A DAY. Freestyle glucometer 100 each 12 10/23/19 25 026 Active glucose blood (FREESTYLE LITE) test stripIndications:T ype 2 diabetes mellitus without complication, without long-term current use of insulin ([facility]) Use bid. Dx diabetes 60 each 11 10/23/19 Active hydroCHLOROthiazid e (HYDRODiuril) 25 MG tabletIndications: Primary hypertension TAKE 1 TABLET(25 MG) BY MOUTH DAILY 90 tablet 1 11/29/19 Active Hospital, Clinic, or Other Facility Administered Medication Ordered Dose Route Frequency Start Date End Date Status cyanocobalamin (Vitamin B-12) injection 1,000 mcgIndications:B12 deficiency 1000 mcg IM Weekly 10/19/2024 Active Active Problems Patient Care Coordination No te Formatting of this note migh t be different from the original. Enrolled in 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 Ruiz 09/05/24 Cardiac-type mucosa with moderate chronic, focally active, inflammation; no intestinal metaplasia seen. Squamous epithelium within normal limits. Assessment & Plan (10/16/2024 2:05 PM EDT): -EGD with Dr. Ruiz 09/05/24 Cardiac-type mucosa with moderate chronic, focally active, inflammation; no intestinal metaplasia seen. Squamous epithelium within normal limits. Right knee pain 05/15/2024 Overview (05/15/2024): -s/p right knee LMT 05/03/[address] 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 -f/u in 2 months. -10/16/24 reports doing well, currently on 2 mg. Has had improvement in secondary outcomes with weight loss medication use. Understands that weight loss medications must be used as part of a comprehensive lifestyle plan that incorporates daily exercise, adequate protein intake, decreased soda and sugary beverage consumption, decreased caloric intake. Assessment & Plan (10/16/2024 2:05 PM EDT): -repeating A1c and ordered additional lipid [...] considered to be 1.7 or 2.4 mg mcc. -f/u in 2 months. -10/16/24 reports doing well, currently on 2 mg. Has had improvement in secondary outcomes with weight loss medication use. Understands that weight loss medications must be used as part of a comprehensive lifestyle plan that incorporates daily exercise, adequate protein intake, decreased soda and sugary beverage consumption, decreased caloric intake. Assessment & Plan (02/12/2024 10:57 AM EDT): [...] considered to be 1.7 or 2.4 mg mcc. -f/u in 2 months. Dermatitis 12/28/2023 Thyroid [...] Feb 2011. Her care was transferred to [facility] who she sees for her [...] Feb 2011. Her care was transferred to [facility] who she sees for her [...] Feb 2011. Her care was transferred to [facility] who she sees for her chronic headaches and last saw Dec 2014. Topamax is 50 bid. She is now on gabapentin 100mg bid. Other specified health status 01/11/2023 Overview (04/08/2024): -next physical exam due after 02/11/25 -followed by Dr. García Wei of [facility] -dental home is [facility] [place] -filed healthcare proxy on 07/17/2023 Assessment & Plan (02/12/2024 10:51 AM EDT): -next physical exam due after 02/11/25 -followed by Dr. García Wei of [facility] -dental home is [facility] [place] -Filed healthcare proxy on 07/17/2023 Assessment & Plan (07/17/2023 11:31 AM EDT): -next physical exam due after 01/19/2024 -eye care facilitated by Dr. Archibald -dental home is [facility] -Filed healthcare proxy on 07/17/2023 Assessment & Plan (01/18/2023 11:55 AM EDT): -next physical exam due after 01/19/2024 -eye care facilitated by Dr. 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 Lab [...] function tests -referral to GI placed 02/13/24 -ordered repeat AST + LFT 10/16/24 Orders: Alpha-Fetoprotein, Tumor Marker; Future Hepatitis Panel, General; Future Ferritin; Future Iron And Total Iron Binding Capacity; Future Ceruloplasmin; Future VONNIE Screen,IFA, with Reflex to Titer and Pattern; Future Mitochondrial Antibody with Reflex to Titer; Future Actin (Smooth Muscle) Antibody (IgG); Future Hepatic Function Panel; Future Assessment & Plan (02/13/2024 9:01 AM EDT): [...] Moderate persistent asthma without complication 12/14/2022 Overview (10/11/2024): Asthma not controlled. Significant eosinophilia chronically on labs. - Continue with pulmonology with Dr. Briggs, note from 10/10/24 reviewed -continue Breztri BID started 10/09/23 -stopped Dupixent due side effects -ALEJANDRA as needed -continue Fasenra started 06/12/24 -Continue Singulair -reflux diet , F/U pulmonology 8-10 months Assessment & Plan (12/28/2023 11:06 AM EDT): [...] DM w/o complication type II 03/30/2012 Overview (10/16/2024): Diabetes is controlled. Follows with Endocrinology, Dr. Cornejo Lab Results Component Value Date HGBA1C 6.1 (A) 10/16/2024 HGBA1C 7.7 (H) 02/12/2024 HGBA1C 7.8 (A) 12/28/2023 Lab Results Component Value Date CREATININE 0.79 02/12/2024 EGFR >60 02/12/2024 MICROALBCREU 6.9 02/12/2024 MICROALBCREU 4.5 01/16/2023 LDLCHOLCAL 86 02/12/2024 -Justus/Arb: lisinopril 20mg -Statin therapy: atorvastatin 40mg -Diabetic eye exam: referred to [facility] 10/16/24 -Diabetic foot exam: 12/28/23 -Continue lifestyle modifications [...] considered to be 1.7 or 2.4 mg mcc. -follow-up in 2 months. Assessment & Plan (10/16/2024 11:46 AM EDT): See above plan. Orders: Lancets (OneTouch Delica Plus [id number]) [facility] [place]; USE TO TEST BLOOD SUGAR ONCE A DAY Assessment & Plan (10/16/2024 2:05 PM EDT): Diabetes is controlled. Lab Results Component Value Date HGBA1C 6.1 (A) 10/16/2024 HGBA1C 7.7 (H) 02/12/2024 HGBA1C 7.8 (A) 12/28/2023 Lab Results Component Value Date CREATININE 0.79 02/12/2024 EGFR >60 02/12/2024 MICROALBCREU 6.9 02/12/2024 MICROALBCREU 4.5 01/16/2023 LDLCHOLCAL 86 02/12/2024 -Justus/Arb: lisinopril 20mg -Statin therapy: atorvastatin 40mg -Diabetic eye exam: referred to [facility] 10/16/24 -Diabetic foot exam: 12/28/23 -Continue lifestyle modifications -Continue current medications -Interested in [employer] , referred to [facility] [...] considered to be 1.7 or 2.4 mg mcc. -follow-up in 2 months. Orders: POCT glycosylated hemoglobin (Hgb A1c) POCT glucose manually resulted Assessment & Plan (02/12/2024 10:58 AM EDT): [...] considered to be 1.7 or 2.4 mg mcc. -follow-up in 2 months. Assessment & Plan [...] techniques and self hypnosis. Hypertension 03/30/2012 Overview (10/16/2024): -Blood pressure is at goal -Continue lifestyle modifications -Continue current medications Assessment & Plan (10/16/2024 2:05 PM EDT): -Blood pressure is at goal [...] face and neck, under the care of Tension Worker Dr. Cantu. Last note available from Dr [...] Encounters Date Type Department Care Team Description 11/27/2024 3:00 PM EDT Clinical Support [facility] [place] [address] Mandi Junior, MAYA B12 deficiency 11/27/2024 Travel 11/27/2024 Refill [facility] [place] [address] Nikki James MD Primary hypertension 11/19/2024 1:30 PM EDT Clinical Support [place] [address] Ivanna White, RN B12 deficiency 11/19/2024 Travel 11/18/2024 Telephone [place] [address] Nikki James MD Nurse Triage 11/11/2024 1:00 PM EDT Clinical Support [place] [address] Mandi Junior, MAYA B12 deficiency 11/11/2024 Travel 11/06/2024 Abstract [place] [address] Nikki James MD 11/04/2024 1:00 PM EDT Clinical Support [place] [address] Patricia Elliott RN B12 deficiency 11/04/2024 Travel 10/22/2024 Orders Only [facility] [address] Nikki James MD Type 2 diabetes mellitus without complication, without long-term current use of insulin (CMS/HCC) (Primary Dx) 10/18/2024 Results Follow-Up [facility] [address] Nikki James MD POCT glycosylated hemoglobin (Hgb A1c), POCT glucose manually resulted, Hepatitis Panel, General, Additional followed-up results: 5 10/16/2024 11:15 AM EDT Office Visit [place] [address] Nikki James MD Type 2 diabetes mellitus without complication, with long-term current use of insulin (CMS/HCC) (Primary Dx); Type 2 diabetes mellitus without complication, without long-term current use of insulin ([facility]); Transaminitis; Blurry vision; Gastroesophageal reflux disease with esophagitis without hemorrhage; Primary hypertension; Vitamin B 12 deficiency; Class 1 drug-induced obesity without serious comorbidity with body mass index (BMI) of 32.0 to 32.9 in adult; Dietary counseling; Exercise counseling 10/16/2024 Telephone [facility] [address] [place] [address] Nickolas, Jewels, OD 10/16/2024 Telephone [facility] [address], [place] [phone] Nikki James MD 10/16/2024 Travel 10/15/2024 Telephone [facility] [address], [place] [phone] Nikki James MD CHART PREP from Last 3 Months Immunizations Immunization Administration Dates Next Due Hep A, Adult [...] Sign Reading Time Taken Comments Blood Pressure 130/90 10/16/2024 11:20 AM EDT Pulse 84 10/16/2024 11:20 AM EDT Temperature 36.2 C (97.1 F) 10/16/2024 11:20 AM EDT Respiratory Rate 20 10/16/2024 11:2 0 AM EDT Oxygen Saturation 97% 02/12/2024 10: 40 AM EDT Inhaled Oxygen Concentration - - Weight 85.2 kg (187 lb 12.8 oz) 025 11:20 AM EDT Height 162.6 cm (5' 4 ) 10/16/2024 11:2 0 AM EDT Body Mass Index 32.24 10/16/2024 11:20 AM EDT Plan of Treatment Health Maintenance Due Date Last Done Comments CT Colonography 1965 FIT DNA/Cologuard 1965 FIT 1965 FOBT 1965 Sigmoidoscopy 1965 Pap Smear 12/27/2019 12/26/2014 Depression Monitoring 06/26/2024 12/28/2023, 024 Influenza Vaccine (#1) 2024 , 01/18/2023, 02/16/2022, Additional history exists Diabetes: Foot Exam 12/27/2024 12/28/2023, 12/28/2023, 12/28/2023, Additional history exists Cervical Cancer Screening 01/22/2025 HPV/Cotest 01/22/2025 01/23/2020, 01/23/2020 Alcohol/Substance Use Screening 02/11/2025 02/12/2024 Diabetes: Urine Protein Screening 02/11/2025 02/12/2024, 01/16/2023, 05/31/2021, Additional history exists Diabetes: Hemoglobin A1C 05/09/2025 025, 11/04/2024, 10/16/2024, Additional history exists Pneumococcal Vaccine: 50+ Years (3 of 3 - PCV20 or PCV21) 06/20/2025 06/20/2020, 02/07/2016, 02/07/2016, Additional history exists Eye Exam 06/28/2025 06/29/2023, 0 10/2023, 06/29/2023, Additional history exists Disability Screening 10/16/2025 10/16/2024 SDOH Screening 10/16/2025 10/16/2024 Tobacco Screening 10/16/2025 10/16/2024 Lipid Panel 11/06/2025 11/06/2024, 01/23, 01/16/2023, Additional history exists Mammogram 04/05/2026 04/05/2024, 0 05/2022, 11/06/2020, Additional history exists DTaP/Tdap/Td Vaccines (3 - Td or Tdap) 02/15/2027 02/15/2017, 10/14/2013, 01/03/2000 Colonoscopy 09/16/2027 09/15/2017 Colorectal Cancer Screening 09/16/2027 RSV Patients and Patients Aged 60 years or older (1 - 1-dose 75+ series) 2041 Hepatitis B Vaccines Completed 05/22/2006, 09/20/2005, 08/19/2005 Hepatitis A Vaccines Aged Out 09/22/2017 No long er eligible based on patient's age to complete this topic HIV Screening Completed 05/31/2021 Zoster Vaccines Completed 10/22/2021, 08/20/2021 COVID-19 Vaccine Completed 02/12/2024, , 11/17/2020 Hepatitis C Screening Completed 10/16/2024, 019 HIB Vaccines Aged Out No longer eligi ble based on patient's age to complete this topic HPV Vaccines Aged Out No longer eligi ble based on patient's age to complete this topic IPV Vaccines Aged Out No longer eligi ble based on patient's age to complete this topic Meningococcal B Vaccine Aged Out No l onger eligible based on patient's age to complete [...] Blood Pressure 130/90(2024 11:20 AM EDT) No Mary Forbes PharmD Hemoglobin A1c < 7 Result Component 6.4( 12:00 AM EDT) No Mary Forbes PharmD Procedures Procedure Name Priority Date/Time Associated Diagnosis Comments CT ABDOMEN PELVIS WO CONTRAST Routine 11/16/2024 11:50 PM EDT LIPID PANEL, STANDARD (EXTERNAL RESULTS ONLY) Routine 11/06/2024 10:13 AM EDT HEMOGLOBIN A1C Routine 11/06/2024 VITAMIN B12/FOLATE, SERUM PANEL Routine 10/16/2024 11:45 AM EDT Vitamin B 12 deficiency HEPATIC FUNCTION PANEL Routine 11:45 AM EDT Transaminitis ACTIN (SMOOTH MUSCLE) ANTIBODY (IGG) Routine 10/16/2024 11:45 AM EDT Transaminitis MITOCHONDRIAL ANTIBODY WITH REFLEX TO TITER Routine 10/16/2024 11:45 AM EDT Transaminitis VONNIE SCREEN, IFA, W/REFL TITER AND PATTERN Routine 10/16/2024 11:45 AM EDT Transaminitis CERULOPLASMIN Routine 10/16/2024 11:45 AM EDT Transaminitis IRON AND TOTAL IRON BINDING CAPACITY Routine 10/16/2024 11:45 AM EDT Transaminitis FERRITIN Routine 10/16/2024 11:45 AM EDT Transaminitis HEPATITIS PANEL, GENERAL Routine 10/16/2024 11:45 AM EDT Transaminitis ALPHA FETOPROTEIN, TUMOR MARKER Routine 10/16/2024 11:45 AM EDT Transaminitis POCT GLYCOSYLATED HEMOGLOBIN (HGB A1C) Routine 10/16/2024 11:12 AM EDT Type 2 diabetes mellitus without complication, with long-term current use of insulin (CMS/HCC) POCT GLUCOSE Routine 10/16/2024 11:11 AM EDT Type 2 diabetes mellitus without complication, with long-term current use of insulin (CMS/HCC) BI MAMMOGRAM SCREENING TOMOSYNTHESIS BILATERAL Routine 04/05/2024 1:00 PM EST ALBUMIN, RANDOM URINE W/CREATININE Routine 02/12/2024 11:45 AM EDT Type 2 diabetes mellitus without complication, without long-term current use of insulin (CMS/HCC) HIV 1/2 ANTIGEN/ANTIBODY, FOURTH GENERATION W/RFL Routine 05/31/2021 1:02 PM EST ZZZ HISTORICAL HPV E6/E7 RFLX ESTEE 16 18/45 Routine 01/23/2020 2:02 PM EDT HM COLONOSCOPY Routine 09/15/2017 PAP SMEAR Routine 12/26/2014 12:00 AM EDT from Last 3 Months or Most Recently Relevant to Health Maintenance Results * CT Abdomen Pelvis w/o Contrast (11/16/2024 11:50 PM EDT) Anatomical Region Laterality Modality Body, Pelvis, Abdomen Computed T omography 11/16/2024 11:5 0 PM EDT Narrative 11/16/2024 11:51 PM EDT [address] [address] [address] Scan Report Signed Patient: Ruthie Toussaint MR#: [id number] 6 : 1965 Acct:[id number] Age/Sex: 59 / F ADM Date: 11/16/24 Loc: HO.ED Attending Dr: Ordering Physician: Mann Em PA-C Date of Service: 11/16/24 Procedure(s): CT abdomen pelvis wo IV con Accession Number(s): [id number] cc: Nikki James MD; Mann Em PA-C Report Number: [id number]: Total DLP = 621.00 mGy-cm CLINICAL HISTORY: Abd Tenderness; N V CT abdomen and pelvis without contrast Comparison: Abdominal ultrasound 02/29/2024 Findings: No acute findings within visualized lung bases. Liver, spleen, adrenal glands, pancreas, are unremarkable. Cholecystectomy. No renal, ureteral or bladder calculi. Noncalcified and nonaneurysmal abdominal aorta. Anteverted uterus. Nondistended stomach. Normal caliber small bowel. No obstruction. Circumferential wall thickening of the distal sigmoid colon and rectum with associated stranding/inflammatory changes. The remainder of the colon is otherwise unremarkable. No acute appendicitis. No free air or free fluid. No acute osseous abnormality. No lytic or sclerotic osseous lesions No pathologically enlarged lymph nodes. Impression: 1. Constellation of findings as detailed above could represent component of proctocolitis. 2. Additional chronic/nonacute findings as above. This document has been electronically signed by: Veronica Ventura MD on 11/16/2024 23:50:12 Dictated By: Veronica Ventura MD Signed By: <Electronically signed by Veronica Ventura MD in OV> 11/16/242350 DD/ 49 TD/TT: 11/16/242349 Recycling Tech: Procedure Note Donotuseinterpreter, Image - 11/17/[address] [place] [address] [address] Scan Report Signed Patient: Sameera Toussaint#: [id number] 6 : 1965Acct:[id number] Age/Sex: 59 / FADM Date: 11/16/24 Loc: HO.ED Attending Dr: Ordering Physician: Mann Em PA-C Date of Service: 11/16/24 Procedure(s): CT abdomen pelvis wo IV con Accession Number(s): [id number] cc: Nikki James MD; Mann Em PA-C Report Number: [id number]: Total DLP = 621.00 mGy-cm CLINICAL HISTORY: Abd Tenderness; N V CT abdomen and pelvis without contrast Comparison: Abdominal ultrasound 02/29/2024 Findings: No acute findings within visualized lung bases. Liver, spleen, adrenal glands, pancreas, are unremarkable. Cholecystectomy. No renal, ureteral or bladder calculi. Noncalcified and nonaneurysmal abdominal aorta. Anteverted uterus. Nondistended stomach. Normal caliber small bowel. No obstruction. Circumferential wall thickening of the distal sigmoid colon and rectum with associated stranding/inflammatory changes. The remainder of the colon is otherwise unremarkable. No acute appendicitis. No free air or free fluid. No acute osseous abnormality. No lytic or sclerotic osseous lesions No pathologically enlarged lymph nodes. Impression: 1. Constellation of findings as detailed above could represent component of proctocolitis. 2. Additional chronic/nonacute findings as above. This document has been electronically signed by: Veronica Ventura MD on 11/16/2024 23:50:12 Dictated By: Veronica Ventura MD Signed By: <Electronically signed by Veronica Ventura MD in OV> 11/16/242350 DD/ 49 TD/TT: 11/16/242349 Recycling Tech: [facility] External Provider IMG CT PROCEDURES Edited Result - Final * Lipid Panel, Standard (11/06/2024 10:13 AM EDT) Total Cholesterol 160 HDL Cholesterol 55 Triglycerides 84 LDL-Cholesterol 89 Cholesterol/HDL Ratio 2.9 Blood Venous blood specimen / Unknown 11/06/2024 10:13 AM EDT Historical Provider POINT OF CARE TEST ENTER/ EDIT ORDERABLES Final Result * Hemoglobin A1c (11/06/2024) Hemoglobin A1c 6.4 Blood Venous blood specimen / Unknown Historical Provider LAB BLOOD ORDERABLES Nadeen l Result * (ABNORMAL) Vitamin B12/Folate, Serum Panel (10/16/2024 11:45 AM EDT) Vitamin B12 <148(L) 200 - 900 pg/mL [facility] Comment:NORMAL 200-900 PG/ML INDETERMINATE 160-199 PG/ML DEFICIENT < 160 PG/ML Folate 11.5 > or = 4.0 ng/mL [facility] Comment:Reference Values:> o r = 4.0 ng/mL< 4.0 ng/mL suggests folate deficiency Methotrexate, aminopterin and folinic acid(leucovorin) are chemotherapeutic agents whose molecularstructures are similar to folate; therefore, the Architectfolate assay cannot be used for patients using these drugs. Blood Venous blood specimen / Unknown 10/16/2024 11:45 AM EDT 10/16/2024 1:20 PM EDT Nikki James MD LAB BLOOD ORDERABLES Final Result Performing Organization Address [facility] de Phone Number [facility] [address] [place] [phone] * Hepatitis Panel, General (10/16/2024 11:45 AM EDT) Hepatitis A IgM Nonreactive Nonreactive [facility] Comment:IgM antibodies to NICOLAS V not detected; does not exclude earlyacute or recovered HAV infection. ~Hepatitis B Surface Antibody GRAYZONE Nonreactive [facility] Comment:GRAYZONE: 8.00 mIU/m L TO 11.99 mIU/mLTHE IMMUNE STATUS OF THE INDIVIDUAL SHOULD BE FURTHERASSESSED BY CONSIDERING OTHER FACTORS, SUCH CLINICALSTATUS, FOLLOW-UP TESTING, ASSOCIATED RISK FACTORS, AND THEUSE OF ADDITIONAL DIAGNOSTIC INFORMATION. Hepatitis B Core Antibody Nonreactive Nonreactive [facility] Hepatitis C Antibody Nonreactive Nonreactive [facility] Comment:Antibodies to HCV no t detected; does not exclude early acuteHCV infection. Hepatitis B Surface Ag Negative Negative [facility] Blood Venous blood specimen / Unknown 10/16/2024 11:45 AM EDT 10/16/2024 1:20 PM EDT Nikki James MD LAB BLOOD ORDERABLES Final Result Performing Organization Address [facility] Co de Phone Number [facility] [address] [place] [phone] * Iron And Total Iron Binding Capacity (10/16/2024 11:45 AM EDT) Iron 82 30 - 160 mcg/dL [facility] Comment:Slight Hemolysis.Int erpret result with caution. Total Iron Binding Capacity 334 228 - 428 mcg/dL [facility] Percent Iron Saturation 25 15 - 50 % [facility] Unsaturated Iron Binding 252 ug/dL [facility] Blood Venous blood specimen / Unknown 10/16/2024 11:45 AM EDT 10/16/2024 1:20 PM EDT Nikki James MD LAB BLOOD ORDERABLES Final Result Performing Organization Address City/[facility]/ZIP Co de Phone Number [facility] [address] [place] [address] [phone] * (ABNORMAL) Actin (Smooth Muscle) Antibody (IgG) (10/16/2024 11:45 AM EDT) Smooth Muscle Antibody 46(A) <20 U [facility] Comment:Reference Range: <20 U: Negative>or=20 U: PositiveAntibodies recognizing actin are the main componentof smooth muscle antibodies associated with auto- immune liver disease. Actin antibodies are found inapproximately 75% of patients with autoimmunehepatitis (AIH) type 1, approximately 65% of patientswith autoimmune cholangitis, approximately 30% ofpatients with primary biliary cirrhosis andapproximately 2% of healthy controls. High values areclosely correlated with AIH type 1.THIS TEST WAS PERFORMED AT:[employer] [place] [address]CISRGRXAMBROSIO BISHOP MD,PHD Blood Venous blood specimen / Unknown 10/16/2024 11:45 AM EDT 10/16/2024 1:20 PM EDT Nikki James MD LAB BLOOD ORDERABLES Final Result [facility] [address] [place] [phone] [phone] * Ceruloplasmin (10/16/2024 11:45 AM EDT) Ceruloplasmin 24 14 - 48 mg/dL [facility] Comment:THIS TEST WAS PERFOR MED AT:[facility] [place] [phone] VANCE MD Blood Venous blood specimen / Unknown 10/16/2024 11:45 AM EDT 10/16/2024 1:20 PM EDT Nikki James MD LAB BLOOD ORDERABLES Final Result Performing Organization Address [facility] de Phone Number [facility] [address] [place] [address] [phone] * Alpha-Fetoprotein, Tumor Marker (10/16/2024 11:45 AM EDT) Alpha Fetoprotein 2.7 ng/mL [facility] Comment:Reference Range: <6. 1The use of AFP as a tumor marker in females is not recommended.This test was performed using the Edwin Coulterchemiluminescent method. Values obtained fromdifferent assay methods cannot be usedinterchangeably. AFP levels, regardless ofvalue, should not be interpreted as absoluteevidence of the presence or absence of disease.THIS TEST WAS PERFORMED AT:[facility] [place] [phone] VANCE MD Blood Venous blood specimen / Unknown 10/16/2024 11:45 AM EDT 10/16/2024 1:20 PM EDT Nikki James MD LAB BLOOD ORDERABLES Final Result Performing Organization Address [facility] Co de Phone Number [facility] [address] [place] [address] [phone] * Mitochondrial Antibody with Reflex to Titer (10/16/2024 11:45 AM EDT) Mitochondrial Antibodies NEGATIVE NEGATIVE [facility] Comment:The immunofluorescen ce assay (IFA) procedure reveals thepossible presence of another autoantibody. Considerrequesting order code 262, Parietal Cell Antibody withReflex to Titer, if clinically indicated.THIS TEST WAS PERFORMED AT:[facility] [place] [phone] VANCE MD Mitochondrial Ab Titer TNP [facility] Blood Venous blood specimen / Unknown 10/16/2024 11:45 AM EDT 10/16/2024 1:20 PM EDT us Nikki James MD LAB BLOOD ORDERABLES Final Result [facility] [address] [place] [phone] * (ABNORMAL) VONNIE Screen,IFA, with Reflex to Titer and Pattern (10/16/2024 11:45 AM EDT) Anti Nuclear Antibody Screen POSITIVE (A) NEGATIVE [facility] Comment:VONNIE IFA is a first l ine screen for detecting thepresence of up to approximately 150 autoantibodies invarious autoimmune diseases. A positive VONNIE IFA resultis suggestive of autoimmune disease and reflexes totiter and pattern. Further laboratory testing may beconsidered if clinically indicated.For additional information, please refer tohttp://education.PubCoder/faq/KWB340(This link is being provided for informational/educational purposes only.) VONNIE Titer 1:40(A) titer [facility] Comment:A low level VONNIE tite r may be present in pre-clinicalautoimmune diseases and normal individuals. Reference Range <1:40 Negative 1:40-1:80 Low Antibody Level >1:80 Elevated Antibody Level VONNIE Pattern Nuclear, Nucleola r(A) [facility] Comment:Nucleolar pattern is associated with systemic sclerosis(scleroderma), systemic sclerosis/polymyositis overlapand Sjogren's syndrome.AC-8,9,10: NucleolarInternational Consensus on VONNIE Patterns(https://doi.org/10.1515/lqwd-6523-9498)THIS TEST WAS PERFORMED AT:[facility] [place] [phone] VANCE MD VONNIE TITER 2 (REF LAB) [facility] VONNIE Pattern 2 [facility] VONNIE TITER 3 [facility] VONNIE PATTERN 3 [facility] Blood Venous blood specimen / Unknown 10/16/2024 11:45 AM EDT 10/16/2024 1:20 PM EDT Nikki James MD LAB BLOOD ORDERABLES Final Result Performing Organization Address [facility] Co de Phone Number [facility] [address] [place] [phone] * Ferritin (10/16/2024 11:45 AM EDT) Ferritin 44 10 - 250 ng/mL [facility] Blood Venous blood specimen / Unknown 10/16/2024 11:45 AM EDT 10/16/2024 1:20 PM EDT Nikki James MD LAB BLOOD ORDERABLES Final Result Performing Organization Address [facility] de Phone Number [facility] [address] [place] [phone] * (ABNORMAL) Hepatic Function Panel (10/16/2024 11:45 AM EDT) Bilirubin, Total 0.7 0.0 - 1.0 mg/dL [facility] Bilirubin, Direct 0.2 0.0 - 0.5 mg/dL [facility] Aspartate Amino Transferase 42(H) 5 - 31 U/L [facility] Comment:Slight Hemolysis.Int erpret result with caution. Alanine Aminotransferase 31 0 - 31 U/L [facility] Total Protein 7.8 6.5 - 8.0 g/dL [facility] Albumin Level 4.4 3.5 - 5.0 g/dL [facility] Alkaline Phosphatase 68 39 - 117 U/L [facility] Blood Venous blood specimen / Unknown 10/16/2024 11:45 AM EDT 10/16/2024 1:20 PM EDT Nikki James MD LAB BLOOD ORDERABLES Final Result [facility] [address] [place] [phone] * (ABNORMAL) POCT glycosylated hemoglobin (Hgb A1c) (10/16/2024 11:12 AM EDT) Hemoglobin A1C 6.1(A) 4.0 - 6.0 % QC Media Lot # [id number] Lot# Expiration Date Blood Capillary blood specimen / Unknown 10/16/2024 11:12 AM EDT Nikki James MD POINT OF CARE TEST ENTER/E DIT ORDERABLES Final Result * (ABNORMAL) POCT glucose manually resulted (10/16/2024 11:11 AM EDT) Glucose Blood, POC 6.1(A) 60 - 200 mg/dL [employer] Media Lot # [id number] Lot# Expiration Date Blood Capillary blood specimen / Unknown 10/16/2024 11:11 AM EDT Nikki James MD POINT OF CARE TEST ENTER/E DIT ORDERABLES Final Result * BI Mammogram Screening Tomosynthesis Bilateral (04/05/2024 1:00 PM EST) Anatomical Region Laterality Modality Breast Bilateral Mammography 04/05/2024 1:00 PM EST Narrative 04/15/2024 3:59 PM EST [facility] [address] [place] [address] Mammography Report Signed Patient: Ruthie Toussaint MR#: [id number] 6 : 1965 Acct:[id number] Age/Sex: 58 / F ADM Date: 04/05/24 Loc: HOHARISHO Attending Dr: Nikki James MD Ordering Physician: Nikki James MD Results: 1N egative Date of Service: 04/05/24 Follow Up: 1 Year From Orig inal Mammogram Procedure(s): MM tomosynthesis screening BI Accession Number(s): [id number] cc: Nikki James MD EXAMINATION: MM SCREENING [...] by: Michelle Connors DO 04/15/2024 03:56 PM [facility] Dictated By: Michelle Connors DO Signed By: <Electronically signed by Michelle Connors DO in OV> 04/15/24 1556 DD/ 1300 TD/TT: 04/05/24 1318 Recycling Tech: Procedure Note Donotuseinterpreter, Image - 04/15/2024 [facility] [address] [place] [address] [place] [address] Mammography Report Signed Patient: Roderick ToussaintR#: [id number] 6 : 1965Acct:[id number] Age/Sex: 58 / FADM Date: 04/05/24 Loc: HO.MAMMO Attending Dr: Nikki James MD Ordering Physician: Nikki James MDResults: 1N egative Date of Service: 04/05/24Follow Up: 1 Year From Orig inal Mammogram Procedure(s): MM tomosynthesis screening BI Accession Number(s): [id number] cc: Nikki James MD EXAMINATION: MM SCREENING [...] by: Michelle Connors DO 04/15/2024 03:56 PM [facility] Dictated By: Michelle Connors DO Signed By: <Electronically signed by Michelle Connors DO in OV> 04/15/24 1556 DD/ 1300 TD/TT: 04/05/24 1318 Recycling Tech: us Nikki James MD IMG BI PROCEDURES Final Re sult * Albumin, Random Urine W/Creatinine (02/12/2024 11:45 AM EDT) Creatinine, Urine 100.78 mg/dL [facility] Microalbumin Urine 7.0 mg/L [facility] Microalbum Creatinine Ratio Ur 6.9 <30 ug/mg cr [facility] Comment:Albumin/Creatinine R atio Reference Ranges: Normal: < 30 ug/mg creatinine Microalbuminuria: 30 - 300 ug/mg creatinineClinical Albuminuria: > 300 ug/mg creatinine Urine 02/12/2024 11:4 5 AM EDT 02/12/2024 1:10 PM EDT Nikki James MD LAB URINE ORDERABLES Final Result Performing Organization Address City/[facility]/ZIP Co de Phone Number [facility] [address] [place] [address] [phone] * HIV 1/2 ANTIGEN/ANTIBODY,FOURTH GENERATION W/RFL (05/31/2021 1:02 PM EST) HIV-1/2 ANTIGEN AND ANTIBODIES, 4TH GENERATION W/ REFLEX NON-REACT [facility] NON-REACT [facility] Comment: HIV-1 antigen and HIV-1/HIV-2 antibodies were not detected. There is no laboratory evidence of HIV infection. PLEASE NOTE: This information has been disclosed to you from records whose confidentiality may be protected by state law. If your state requires such protection, then the state law prohibits you from making any further disclosure of the information without the specific written consent of the person to whom it pertains, or as otherwise permitted by law. A general authorization for the release of medical or other information is NOT sufficient for this purpose. For additional information please refer to http://education.Medium.VSoft/faq/FSF899 (This link is being provided for informational/ educational purposes only.) The performance of this assay has not been clinically validated in patients less than 2 years old. 05/31/2021 1:02 PM EST Nikki James MD LAB BLOOD ORDERABLES Final Result [facility] [address] * HPV E6/E7 RFLX ESTEE 16 18/45 (01/23/2020 2:02 PM EDT) HPV 16 RNA [facility] HPV 18/45 RNA [facility] HPV E6 E7 ADD [facility] HPV mRNA E6/E7 Not Detected Not Detected [facility] Comment: This test was performed using the APTIMA HPV Assay ([employer] This assay detects E6/E7 viral messenger RNA (mRNA) from 14 high-risk HPV types (16,18,31,33,35,39,45,51,52,56,58,59,66,68). The analytical performance characteristics of this assay have been determined by [facility]. The modifications have not been cleared or approved by the FDA. This assay has been validated pursuant to the CLIA regulations and is used for clinical purposes. THIS TEST WAS PERFORMED AT: [facility] [address] [place] [address] [address]LO[address] [address] CASSIE VANCE MD 01/23/2020 2:02 PM EDT Jessica Grace HISTORICAL/NON ORDERABLE LABS Fi nal Result [facility] [address] * Colonoscopy (09/15/2017) Colonoscopy normal with Dr. Oliver Historical Provider HEALTH MAINTENANCE Final Result * Pap Smear (12/26/2014 12:00 AM EDT) Swab Historical Provider LAB CYTOLOGY ORDERABLES F inal Result IMAGING from Last 3 Months or Most Recently Relevant to Health Maintenance Insurance [facility]ARE < [address] [place] [id number] Advance Directives Documents on File Type Date Recorded Patient Health Data Administrator Expl anation Advance Directives and Livin g Will 07/17/2023 Health Care Proxy Care Teams Senior Physician Relationship Specialty Start Date End Date [place], MD Nikki [address] [place] [address] PCP - General Family Medicine 04/24/18 Mary Rain, ElishaD [address] [place] [address] Pharmacist Internal Medicine 01/26/23 Gerson Briggs [address] [place] [address] Pulmonary Disease 04/08/24 Babatunde Cornejo DO [address] [place] [address] Endocrinology 04/08/24 Delaney Cantu [address] [address] Dermatology 04/08/24 Uzair Ruiz MD [address] [place] [address] Gastroenterology 09/05/24 Dr. Bravo [facility] [address] [place] [address] Orthopaedic Surgery 05/15/24
--- OUTSIDE RECORDS SUMMARY | 2024-12-30 16:07 | XMS_ITS | Encounter Summary ---
Author Organization [employer] Address [address] [facility] 7t [place] [address] Care Team Providers Care Plasma Specialist Name Role Phone Nikki James MD Primary Care Provider [phone] Mary Rain PharmD Unavailable Gerson Briggs Unavailable [phone] Babatunde Cornejo DO Unavailable [phone] Delaney Cantu Unavailable Uzair Ruiz MD Unavailable Reason for Referral * Consultation (STAT) - Closed Specialty Diagnoses / Procedures Referred By Conteliana t Referred To Contact Obstetrics and Gynecology Diagnoses Labial cyst Jenna Walter MD [address] [place] [address] Phone: tel: fax: [facility] Referral ID Status Reason Start Date Expiration Date V isits Requested Visits Authorized [id number] Closed Specialty Services Required 06/11/2024 06/11/2025 1 1 Encounter Details Date Type Department Care Team (Late st Contact Info) Description 06/11/2024 Orders Only [facility] [address] [place], [place] [phone] Jenna Walter MD [address] [place], [place] [phone] Labial cyst (Primary Dx) Social History Tobacco [...] Hemoglobin A1c < 7 Result Component 6.4( 5 12:00 AM EDT) No Mary Forbes PharmD documented as of this encounter Visit Diagnoses Diagnosis Labial cyst- Primary Other specified noninflammatory disorder of vulva and perineum documented in this encounter Additional Health Concerns Assessment Noted Time PHQ-9 Depression Total Score: 12 024 10:49 AM EDT documented as of this encounter Care Teams Plasma Specialist Relationship Specialty Start Date End Date Nikki James MD [address] [place] [address] PCP - General Family Medicine 04/24/18 Mary Rain PharmD [address] [place] [address] Pharmacist Internal Medicine 01/26/23 Gerson Briggs [address] [place] [address] Pulmonary Disease 04/08/24 Babatunde Cornejo DO [address] [place] [address] Endocrinology 04/08/24 Delaney Cantu [address] [address] Dermatology 04/08/24 Uzair Ruiz MD [address] [place] [address] Gastroenterology 09/05/[address] [facility] [address] [place] [phone] Orthopaedic Surgery 05/15/24 documented as of this encounter
--- OUTSIDE RECORDS SUMMARY | 2024-12-30 16:07 | XMS_ITS | Encounter Summary ---
Author Organization [employer] Address [address] [facility] 7t [place] [address] Care Team Providers Care Professor Of Biology Name Role Phone Nikki James MD Primary Care Provider [phone] Mary Rain PharmD Unavailable [phone] Gerson Briggs Unavailable [phone] Clemente Babatunde Holley DO Unavailable [phone] Delaney Cantu Unavailable Uzair Ruiz MD Unavailable Reason for Visit * Reason Comments Med Refill Encounter Details Date Type Department Care Team (Late st Contact Info) Description 06/24/2024 Refill [facility] [address] [place], [place] [phone] Nikki James MD [address] [place], [place] [phone] Type 2 diabetes mellitus without complication, without long-term current use of insulin ([facility]) Social History Tobacco Use Types Packs/Day Years [...] Pressure 130/90(2024 11:20 AM EDT) No Mary Forbes, PharmD Hemoglobin A1c < 7 Result Component 6.4( 12:00 AM EDT) No DawoodsMary Rea, PharmD documented as of this encounter Visit Diagnoses Diagnosis Type 2 diabetes mellitus without complication, without long-term current use of insulin ([facility]) documented in this encounter Additional Health Concerns Assessment Noted Time PHQ-9 Depression Total Score: 12 024 10:49 AM EDT documented as of this encounter Care Teams Professor Of Biology Relationship Specialty Start Date End Date Nikki James MD [address] [place] [phone] PCP - General Family Medicine 04/24/18 Mary Rain PharmD [address] [place] [address] Pharmacist Internal Medicine 01/26/23 Gerson Briggs [address] [place] [address] Pulmonary Disease 04/08/24 Babatunde Cornejo DO [address] [place] [address] Endocrinology 04/08/24 Delaney Cantu [address] [place] [address] Dermatology 04/08/24 Uzair Ruiz MD [address] [place] [address] Gastroenterology 09/05/24 Dr. Bravo [facility] [address] [place] [address] Orthopaedic Surgery 05/15/24 documented as of this encounter
--- OUTSIDE RECORDS SUMMARY | 2024-12-30 16:07 | XMS_ITS | Clinical Summary ---
Author Organization [facility] Address [address] [facility] [address] [place] [address] Phone Care Team Providers Care Filter Changing Technician Name Role Phone Nikki James MD Primary Care Provi rio Allergies Active Allergy Reactions Criticality Noted Date Comments Amoxicillin Anaphylaxis High 04/21/2022 Beta-Blockers (Beta-Adrenergic Blocking Agts) Shortness Of Breath High 04/21/2022 Iodinated Contrast Media 04/21/2022 Morphine Anxiety,Headaches,Re stless ness Low 04/21/2022 Penicillins Anaphylaxis High 04/21/2022 Medications lancets 33 gauge Misc 1 each daily. USE TO TEST BLOOD SUGAR ONCE A DAY Active BREZTRI AEROSPHERE 160-9-4.8 mcg/actuation inhaler Inhale 2 puffs into the lungs 2 (two) times a day. Active aspirin 81 MG EC tablet Take 1 tablet by mouth daily. Active cholecalciferol , vitamin D3, 25 mcg (1,000 unit) capsule Take 1,000 Units by mouth daily. Active cyanocobalamin, vitamin B-12, 250 MCG tablet Take 250 mcg by mouth daily. Active cyclobenzaprine (FLEXERIL) 5 MG tablet Take 5 mg by mouth 3 (three) times a day as needed. 023 Active DULoxetine (CYMBALTA) 30 MG capsule Take 30 mg by mouth daily. Active hydroCHLOROthia zide 25 MG tablet Take 25 mg by mouth daily. 024 Active hydrOXYzine (ATARAX) 25 MG tablet Take 25 mg by mouth nightly at bedtime as needed. Active levocetirizine (XYZAL) 5 MG tablet Take 5 mg by mouth daily. Active lisinopril (PRINIVIL,ZESTR IL) 20 MG tablet Take 20 mg by mouth daily. Active montelukast (SINGULAIR) 10 mg tablet Take 10 mg by mouth nightly at bedtime. Active FREESTYLE LITE Strp stripsIndicatio ns:Type 2 diabetes mellitus with hyperglycemia, without long-term current use of insulin 1 each by Miscellaneous route 2 (two) times a day. 200 strip 3 Active ezetimibe (ZETIA) 10 mg tabletIndicatio ns:Type 2 diabetes mellitus without complication, with long-term current use of insulin Take 1 tablet (10 mg total) by mouth daily. 90 tablet 1 025 Active JARDIANCE 10 mg tabletIndicatio ns:Type 2 diabetes mellitus without complication, with long-term current use of insulin Take 1 tablet (10 mg total) by mouth daily. 90 tablet 1 025 Active semaglutide (OZEMPIC) 2 mg/dose (8 mg/3 mL) subcutaneous injection penIndications: Type 2 diabetes mellitus without complication, with long-term current use of insulin INJECT 2MG UNDER THE SKIN EVERY 7 DAYS 9 mL 1 025 Active semaglutide (OZEMPIC) 2 mg/dose (8 mg/3 mL) subcutaneous injection penIndications: Type 2 diabetes mellitus without complication, with long-term current use of insulin Inject 2 mg under the skin once a week. 9 mL 025 2024 Discontinued Active Problems Problem Noted Date Diagnosed Date [...] Encounters Date Type Department Care Team Description 12/21/2024 Refill [facility] [address] [place] [address] Babatunde Cornejo DO Medication Refill 11/19/2024 11:30 AM EDT Office Visit [facility] [address] [place] [address] [place] [address] Babatunde Cornejo DO Type 2 diabetes mellitus without complication, with long-term current use of insulin (Primary Dx); Hyperlipidemia LDL goal <70 11/04/2024 2:33 PM EDT - 11/04/2024 11:59 PM EDT Hospital Encounter [facility] [address] [place] [address] Babatunde Cornejo DO Discharge Disposition: Home or Self Care from Last 3 Months Social History Tobacco [...] 11:30 AM EST Office Visit [facility] [address] [place] [address] Babatunde Cornejo DO [address] [place] [address] [email or web address] Health Maintenance Due Date Last Done Comments [...] 02/07/2016, 01/27/2014 Adult Td,Tdap Booster 10/15/2023 10/14/2013 DIABETIC EYE EXAM 04/15/2024 INFLUENZA VACCINE (#1) 2024 COVID-19 VACCINE ( season) 2024 MAMMOGRAM 02/23/2025 02/23/2023 HEMOGLOBIN A1C 05/09/2025 11/06/2024, [...] HEMOGLOBIN A1C 6.4(H) 4.3 - 5.8 % [facility] Blood 11/04/2024 2:51 PM EDT 11/04/2024 2:58 PM EDT us Babatunde Cornejo DO LAB BLOOD ORDERABLES Final Resul t [facility] [address] [place] [address] * (ABNORMAL) Lipid panel (11/04/2024 2:51 PM EDT) HDL 55 mg/dL [facility] Comment: Interpretation <40 mg/dL: Low HDL cholesterol (major risk factor for CHD) Greater than or equal to 60 mg/dL: High HDL cholesterol ( negative risk factor for CHD) HDL - cholesterol is affected by a number of factors, e.g. smoking, excerise, hormones, sex and age. CHOLESTEROL 160 0 - 240 mg/dL [facility] TRIGLYCERIDES 84 30 - 160 mg/dL [facility] LDL 88 50 - 129 mg/dL [facility] Comment: LDL levels in terms of risk for coronary heart disease: <100 mg/dL: Optimal 100-129 mg/dL: Near or above optimal 130-159 mg/dL: Borderline high 160-189 mg/dL: High >190 mg/dL: Very High CARDIAC RISK RATIO 2.9(L) 3.3 - 4.4 C [facility] Blood 11/04/2024 2:51 PM EDT 11/04/2024 2:58 PM EDT Babatunde Cornejo DO LAB BLOOD ORDERABLES Final Resul t [facility] [address] [place] [address] from Last 3 Months Insurance MEDICARE PART A & B [facility] ONE CARE MEDICARE REPLACEMENT KIANNAJOHN [id number] MEDICARE PART A & B [facility] ONE [facility] MEDICARE REPLACEMENT JOHN HUTCHISON [id number] MEDICARE PART A & B [facility] ONE CARE MEDICARE REPLACEMENT [place] [id number] MEDICARE PART A & B [facility] ONE CARE MEDICARE REPLACEMENT [id number] MEDIC[facility] PART A & B [facility] ONE CARE MEDICARE REPLACEMENT MEDICARE PART A & B [facility] CLARE CARE MEDICARE REPLACEMENT Care Teams Filter Changing Technician Relationship Specialty Start Date End Date [place], Nikki Vail MD [address] [place] [address] PCP - General Family Medicine 12/08/23 Additional Source Comments The information contained in this document represents components of the legal health record. It is not the complete legal health record.[facility]
--- OUTSIDE RECORDS SUMMARY | 2024-12-30 16:07 | XMS_ITS | Encounter Summary ---
Author Organization [employer] Address [address] [facility] 7t [place] [address] Care Team Providers Care Machine Setter Name Role Phone Nikki James MD Primary Care Provider [phone] Mary Rain PharmD Unavailable Gerson Briggs Unavailable [phone] Clemente Babatunde Holley DO Unavailable [phone] Delaney Cantu Unavailable Uzair Ruiz MD Unavailable Reason for Visit * Reason Comments Med Refill Encounter Details Date Type Department Care Team (Late st Contact Info) Description 08/02/2024 Refill [facility] [address] [place], [place] [phone] Nikki James MD 230 [place], [place] [phone] Seasonal allergies Social History Tobacco Use Types [...] Blood Pressure 130/90(2024 11:20 AM EDT) No [place]-Mary Mcadams, PharmD Hemoglobin A1c < 7 Result Component 6.4( 12:00 AM EDT) No Dawoods-Zahra hawk, Mary, PharmD documented as of this encounter Visit Diagnoses Diagnosis Seasonal allergies Allergic rhinitis, cause unspecified documented in this encounter Additional Health Concerns Assessment Noted Time PHQ-9 Depression Total Score: 12 024 10:49 AM EDT documented as of this encounter Care Teams Machine Setter Relationship Specialty Start Date End Date Nikki James MD [address] [place] [address] PCP - General Family Medicine 04/24/18 Mary Rain ElishaD 230 [place] [address] Pharmacist Internal Medicine 01/26/23 Gerson Briggs 5 [place] [address] Pulmonary Disease 04/08/24 Babatunde Cornejo DO 22 [place] [address] Endocrinology 04/08/24 Delaney Cantu [address] [address] Dermatology 04/08/24 Uzair Ruiz MD [address] [place] [address] Gastroenterology 09/05/24 Dr. Bravo [facility] [address] [facility] [address] Orthopaedic Surgery 05/15/24 documented as of this encounter
--- OUTSIDE RECORDS SUMMARY | 2024-12-30 16:07 | XMS_ITS | Patient Health Record ---
Author Organization [facility] Address [address] [place] [address] Care Team Providers Care Derrick Man Name Role Phone Nikki James MD Primary Care Provider Uzair Ferguson [phone] Allergies Allergen (clinical drug ingredient) Drug/Non Drug [...] Blood Reviewed date:09/02/2024 11:34:08 PM Interpretation: Performing Lab:[facility], [address] [place] [phone] Notes/Report: Glucose, Whole Blood 114 60-115 mg/dL METER # : [id number] Pathology (Not yet reviewed by provider) Interpretation: Performing Lab:[facility], [address] [place] [phone] Notes/Report: Reason For Referral No Information Medications [...] 30 days 09/02/2024 Active OneTouch Delica Plus [id number] - USE TO TEST BLOOD SUGAR ONCE [...] Status W/U Status Risk Notes Problem Heartburn (75806768) Heartburn (R12) Active confirmed Problem Elevated liver enzymes level (912608754) Elevated liver enzymes (R74.8) Active confirmed Problem Fatty liver (953212600) Fatty liver (K76.0) Active confirmed Problem Gastroesophageal reflux disease (disorder) (214541938) Chronic GERD (K21.9) Active confirmed Vital Signs Temperature 97.8 degrees Fahrenheit 06/07/2024 Blood pressure diastolic 00 mm Hg 06/07/2024 Height 5 ft 4 in in 06/07/2024 Blood pressure systolic 000 mm Hg 06/07/2024 Weight 212 lbs 06/07/2024 BMI 36.39 kg/m2 06/07/2024 Encounters Encounter Location Date Provider Diagnosis [facility] [address] [place] [id number] 09/02/2024 Uzair Ruiz Hiatal hernia K44.9 and Gastro-esophageal reflux disease without esophagitis K21.9 [facility] [address] [place] [address] 06/07/2024 Uzair Ruiz Chronic GERD K21.9 ; Heartburn R12 ; Fatty liver K76.0 and Elevated liver enzymes R74.8 [facility] [address] [place] [address] 08/26/2024 Uzair Ruiz [facility] [address] [place] [address] 09/02/2024 Uzair Ruiz [facility] [address] [place] [address] 09/17/2024 Uzair Ruiz Assessments Encounter Date Diagnosis [...] Name:Uzair Ruiz , 01/22/2025 03:40:00 PM, [address] [facility], [address], [place], [address], Insurance Providers Payer Name Payer Address Payer Phone Subscriber Number Group Number Insured Name Patient Relationship to Insured Coverage Start Date Coverage End Date [facility] [address] Attn Claims JOHN Arora [id number] Ruthie Toussaint Self - patient is the insured Medical (General) History Medical History History ICD Code NIDDM High blood pressure Fibromyalgia Arthritis Stroke in 2009 due to aneurysm with surg debora-right side weakness Asthma-Sees Dr. Briggs Denies ND or renal disease Negative colonoscopy in approx [...] sign of splenomegaly nor ascites. GERD Denies ND or renal disease Surgical History Surgery Date(Month/Year) 2 C-sections Fractured coccyx Gallbladder 2 carpal tunnel surgeries each wrist
--- OUTSIDE RECORDS SUMMARY | 2024-12-30 16:08 | XMS_ITS | Clinical Summary ---
Author Organization [facility] Address [address] [place] [address] Care Team Providers Care Tanyard Worker Name Role Phone Unavailable Primary Care Provider [...] of 2) 2016 COVID-19 Vaccine ( - season) 2024
--- OUTSIDE RECORDS SUMMARY | 2024-12-30 16:08 | XMS_ITS | Encounter Summary ---
Author Organization [employer] Address [address] [facility] 7t [place] [address] Care Team Providers Care Trolley Collector Name Role Phone Nikki James MD Primary Care Provider [phone] Mary Rain PharmD Unavailable [phone] Gerson Briggs Unavailable [phone] Clemente Babatunde Babb DO Unavailable [phone] Delaney Cantu Unavailable Uzair Ruiz MD Unavailable Reason for Visit * Reason Onset Date Comments Durable Medical Equipment 07/13/2022 Encounter Details Date Type Department Care Team (Late st Contact Info) Description 07/13/2022 Telephone [facility] 230 [place], [place] [phone] Nikki James MD 230 [place], [place] [phone] Durable Medical Equipment Social History Tobacco Use [...] send to medline Please contact pt at [phone] documented in this encounter Plan of Treatment Not on file documented as of this encounter Visit Diagnoses Not on filedocumented in this encounter Care Teams Trolley Collector Relationship Specialty Start Date End Date Nikki James MD 230 [place] [address] PCP - General Family Medicine 04/24/18 Mary Rain, Kisha 230 [place] [address] Pharmacist Internal Medicine 01/26/23 Gerson Briggs 5 [place] [address] Pulmonary Disease 04/08/24 Babatunde Cornejo DO 22 [place] [address] Endocrinology 04/08/24 Delaney Cantu [address] [address] Dermatology 04/08/24 Uzair Ruiz MD [address] [place] [address] Gastroenterology 09/05/24 Dr. Bravo [facility] [address] [place] [address] Orthopaedic Surgery 05/15/24 documented as of this encounter
--- OUTSIDE RECORDS SUMMARY | 2024-12-30 16:08 | XMS_ITS | Encounter Summary ---
Author Organization [employer] Address [address] [facility] 7t [place] [address] Care Team Providers Care Academic Affairs Director Name Role Phone Nikki James MD Primary Care Provider [phone] Mary Rain PharmD Unavailable Gerson Briggs Unavailable [phone] Clemente Babatunde Babb Unavailable [phone] Delaney Cantu Unavailable Uzair Ruiz MD Unavailable Encounter Details Date Type Department Care Team (Late st Contact Info) Description 04/21/[address] [facility]INE 230 [place], [place] [phone] Lisa Navarro RN Social History Tobacco Use [...] on filedocumented in this encounter Care Teams Academic Affairs Director Relationship Specialty Start Date End Date Nikki James MD 230 [place], [place] [phone] PCP - General Family Medicine 04/24/18 Mary Rain, PharmD 230 [place] [address] Pharmacist Internal Medicine 01/26/23 Gerson Briggs 5 [place] [address] Pulmonary Disease 04/08/24 Babatunde Cornejo DO 22 [place] [address] Endocrinology 04/08/24 Delaney Cantu [address] [address] Dermatology 04/08/24 Uzair Ruiz MD [address] [place] [address] Gastroenterology 09/05/24 Dr. Bravo [facility] [address] [place] [address] Orthopaedic Surgery 05/15/24 documented as of this encounter
--- OUTSIDE RECORDS SUMMARY | 2024-12-30 16:08 | XMS_ITS | Encounter Summary ---
Author Organization [employer] Address [address] [facility] 7t [place] [address] Care Team Providers Care Agile Scrum Master Name Role Phone Nikki James MD Primary Care Provider [phone] Mary Rain PharmD Unavailable Gerson Briggs Unavailable [phone] Clemente Babatunde Babb DO Unavailable [phone] Delaney Cantu Unavailable Uzair Ruiz MD Unavailable Encounter Details Date Type Department Care Team (Late st Contact Info) Description 06/02/2022 Abstract [facility] [address] [place], [place] [phone] Nikki James MD 230 [place], [place] [phone] Social History Tobacco Use Types Packs/Day Years [...] Date/Time Associated Diagnosis Comments MAMMOGRAPHY Routine 11/06/2020 HM COLONOSCOPY Routine 09/15/2017 PAP SMEAR Routine 12/26/2014 12:00 AM EDT documented in this encounter Results * Hm Mammography (11/06/2020) HM Mammogram normal Anatomical Region Laterality Modality Other Historical Provider HEALTH MAINTENANCE Final Result * Colonoscopy (09/15/2017) Colonoscopy normal with Dr. Oliver Historical Provider HEALTH MAINTENANCE Final Result * Pap Smear (12/26/2014 12:00 AM EDT) Swab Historical Provider LAB CYTOLOGY ORDERABLES F inal Result IMAGING documented in this encounter Visit Diagnoses Not on filedocumented in this encounter Care Teams Agile Scrum Master Relationship Specialty Start Date End Date Nikki James MD 230 [place] [address] PCP - General Family Medicine 04/24/18 Mary Rain, ElishaD 230 [place] [address] Pharmacist Internal Medicine 01/26/23 Gerson Briggs 5 [place] [address] Pulmonary Disease 04/08/24 Babatunde Cornejo DO 22 [place] [address] Endocrinology 04/08/24 Delaney Cantu [address] [address] Dermatology 04/08/24 Uzair Ruiz MD [address] [place] [address] Gastroenterology 09/05/[facility] [address] [place] [address] [place] [address] Orthopaedic Surgery 05/15/24 documented as of this encounter
--- OUTSIDE RECORDS SUMMARY | 2024-12-30 16:08 | XMS_ITS | Encounter Summary ---
Author Organization [employer] Address [address] [facility] 7t [place] [address] Care Team Providers Care Sander Hand Name Role Phone Nikki James MD Primary Care Provider [phone] Mary Rain PharmD Unavailable Gerson Briggs Unavailable [phone] Clemente, Babatunde Babb Unavailable [phone] Delaney Cantu Unavailable Uzair Ruiz MD Unavailable Encounter Details Date Type Department Care Team (Late st Contact Info) Description 05/10/2022 Orders Only [facility] [address] [place], [place] [phone] Alyssa Mehta LPN Social History Tobacco Use [...] on filedocumented in this encounter Care Teams Sander Hand Relationship Specialty Start Date End Date Nikki James MD 230 [place] [address] PCP - General Family Medicine 04/24/18 Mary Rain, PharmD 230 [place] [address] Pharmacist Internal Medicine 01/26/23 Gerson Briggs 5 [place] [address] Pulmonary Disease 04/08/24 Babatunde Cornejo DO 22 [place] [address] Endocrinology 04/08/24 Delaney Cantu [address] [address] Dermatology 04/08/24 Uzair Ruiz MD [address] [place] [address] Gastroenterology 09/05/24 Dr. Bravo [facility] [address] [place] [address] Orthopaedic Surgery 05/15/24 documented as of this encounter
--- OUTSIDE RECORDS SUMMARY | 2024-12-30 16:08 | XMS_ITS | Encounter Summary ---
Author Organization [employer] Address [address] [facility] 7t [place] [address] Care Team Providers Care Internal Salesperson Name Role Phone Nikki James MD Primary Care Provider [phone] Mary Rain PharmD Unavailable Gerson Briggs Unavailable [phone] Babatunde Cornejo DO Unavailable [phone] Delaney Cantu Unavailable Uzair Ruiz MD Unavailable Encounter Details Date Type Department Care Team (Late st Contact Info) Description 11/10/2022 Orders Only [facility] MEDICINE 230 [place] [address] Lisbeth Taylor LPN Social History Tobacco Use [...] on filedocumented in this encounter Care Teams Internal Salesperson Relationship Specialty Start Date End Date Nikki James MD 230 [place] [address] PCP - General Family Medicine 04/24/18 Mary Rain, PharmD [address] [place] [address] Pharmacist Internal Medicine 01/26/23 Gerson Briggs 5 [place] [address] Pulmonary Disease 04/08/24 Babatunde Cornejo DO 22 [place] [address] Endocrinology 04/08/24 Delaney Cantu [address] [address] Dermatology 04/08/24 Uzair Ruiz MD [address] [place] [address] Gastroenterology 09/05/24 Dr. Bravo [facility] [address] [place] [address] Orthopaedic Surgery 05/15/24 documented as of this encounter
--- OUTSIDE RECORDS SUMMARY | 2024-12-30 16:08 | XMS_ITS | Encounter Summary ---
Author Organization [employer] Address [address] [facility] 7t [place] [address] Care Team Providers Care Rouge Sifter And Miller Name Role Phone Nikki James MD Primary Care Provider [phone] Mary Rain PharmD Unavailable Gerson Briggs Unavailable [phone] Clemente Babatunde Holley DO Unavailable [phone] Delaney Cantu Unavailable Uzair Ruiz MD Unavailable Reason for Visit * Reason Onset Date Comments Referral 02/15/2023 Encounter Details Date Type Department Care Team (Late st Contact Info) Description 02/15/2023 Telephone [facility] MED[facility]INE 230 [place], [place] [phone] Nikki James MD 230 [place], [place] [phone] Referral Social History Tobacco Use Types Packs/Day Years Used Date Smoking Tobacco: Never Passive Smoke Exposure: Never Smokeless Tobacco: Never Depression Answer Date Recorded Patient Health Questionnaire-9 Score 10 01/18/2023 Housing Stability Answer Date Recorded What is your housing situation today? I have truechika christianson 02/15/[address] you [...] specialist due to headaches and aneurysm historial. [facility] Neurology [facility] [address] [address] documented in this encounter Plan of Treatment [...] documented as of this encounter Care Teams Rouge Sifter And Miller Relationship Specialty Start Date End Date Nikki James MD [address] [place] [address] PCP - General Family Medicine 04/24/18 Mary Rain, Kisha 230 [place] [address] Pharmacist Internal Medicine 01/26/23 Gerson Briggs 5 [place] [address] Pulmonary Disease 04/08/24 Babatunde Cornejo DO 22 [place] [address] Endocrinology 04/08/24 Delaney Cantu [address] [place] [address] Dermatology 04/08/24 Uzair Ruiz MD [address] [place] [address] Gastroenterology 09/05/24 Dr. Bravo [facility] [address] [facility] [address] Orthopaedic Surgery 05/15/24 documented as of this encounter
--- OUTSIDE RECORDS SUMMARY | 2024-12-30 16:08 | XMS_ITS | Encounter Summary ---
Author Organization [employer] Address [address] [facility] 7t [place] [address] Care Team Providers Care Fire Protection Equipment Technician Name Role Phone Nikki James MD Primary Care Provider [phone] Mary Rain PharmD Unavailable Gerson Briggs Unavailable [phone] Clemente Babatunde Holley DO Unavailable [phone] Delaney Cantu Unavailable Uzair Ruiz MD Unavailable Reason for Visit * Reason Onset Date Comments Nurse Triage 05/16/2023 Encounter Details Date Type Department Care Team (Late st Contact Info) Description 05/16/2023 Telephone [facility] MEDICINE [address] [place] [address] Nikki James MD [address] [place], [place] [phone] Nurse Triage Social History Tobacco Use Types Packs/Day Years Used Date Smoking Tobacco: Never Passive Smoke Exposure: Never Smokeless Tobacco: Never Depression Answer Date Recorded Patient Health Questionnaire-9 Score 10 01/18/2023 Housing Stability Answer Date Recorded What is your housing situation today? I have true sing 02/15/[address] you li [...] 05/16/2023 12:32 PM EST Triage call with [place] demonstrator knitting [id number] Pt reports positive Covid test 05/10/23. Pt [...] The caller accepted this outcome Patient speaks bengali documented in this encounter Plan of Treatment Not on file documented as of this encounter Goals Goal Patient Goal Type Associated Problems Recent Progress Patient-Stated? Author Blood Pressure < 140/90 Blood Pressure 130/90(2024 11:20 AM EDT) No Mary Forbes, PharmD Hemoglobin A1c < 7 Result Component 6.4( 12:00 AM EDT) No Mary Forbes, PharmD documented as of this encounter Visit Diagnoses Not on filedocumented in this encounter Additional Health Concerns Assessment Noted Time PHQ-9 Depression Total Score: 10 023 11:39 AM EDT documented as of this encounter Care Teams Fire Protection Equipment Technician Relationship Specialty Start Date End Date Nikki James MD [address] [place] [address] PCP - General Family Medicine 04/24/18 Mary Rain PharmD [address] [place] [address] Pharmacist Internal Medicine 01/26/23 Gerson Briggs 5 [place] [address] Pulmonary Disease 04/08/24 Babatunde Cornejo DO [address] [place] [address] Endocrinology 04/08/24 Delaney Cantu [address] [place] [address] Dermatology 04/08/24 Uzair Ruiz MD [address] [place] [address] Gastroenterology 09/05/24 Dr. Bravo [facility] Orthopedics [address] [place] [address] Orthopaedic Surgery 05/15/24 documented as of this encounter
--- OUTSIDE RECORDS SUMMARY | 2024-12-30 16:08 | XMS_ITS | Encounter Summary ---
Author Organization [employer] Address [address] [facility] 7t [place] [address] Care Team Providers Care Senior Cost Estimator Name Role Phone Nikki James MD Primary Care Provider [phone] Mary Rain PharmD Unavailable Gerson Briggs Unavailable [phone] Clemente, Babatunde Babb Unavailable [phone] Delaney Cantu Unavailable Uzair Ruiz MD Unavailable Encounter Details Date Type Department Care Team (Late st Contact Info) Description 10/05/2022 Orders Only [facility] [address] [place], [place] [phone] Alyssa Mehta LPN Social History Tobacco Use [...] on filedocumented in this encounter Care Teams Senior Cost Estimator Relationship Specialty Start Date End Date Nikki James MD [address] [place] [address] PCP - General Family Medicine 04/24/18 Mary Rain, PharmD [address] [place] [address] Pharmacist Internal Medicine 01/26/23 Gerson Briggs 5 [place] [address] Pulmonary Disease 04/08/24 Babatunde Cornejo DO 22 [place] [address] Endocrinology 04/08/24 Delaney Cantu [address] [address] Dermatology 04/08/24 Uzair Ruiz MD [address] [place] [address] Gastroenterology 09/05/[address] [facility] Orthopedics [address] [place] [address] Orthopaedic Surgery 05/15/24 documented as of this encounter
--- OUTSIDE RECORDS SUMMARY | 2024-12-30 16:08 | XMS_ITS | Encounter Summary ---
Author Organization [employer] Address [address] [facility] 7t [place] [address] Care Team Providers Care Political Science Research Assistant Name Role Phone Nikki James MD Primary Care Provider [phone] Mary Rain PharmD Unavailable Gerson Briggs Unavailable [phone] Babatunde Cornejo DO Unavailable [phone] Delaney Cantu Unavailable Uzair Ruiz MD Unavailable Reason for Visit * Reason Comments Med Refill Encounter Details Date Type Department Care Team (Late st Contact Info) Description 04/25/2023 Refill [facility] [address] [place] [address] Pauline Berger MD [address] [place], [place] [phone] Social History Tobacco Use Types Packs/Day Years [...] documented as of this encounter Care Teams Political Science Research Assistant Relationship Specialty Start Date End Date Nikki James MD [address] [place] [address] PCP - General Family Medicine 04/24/18 Mary Rain, PharmD [address] [place] [address] Pharmacist Internal Medicine 01/26/23 Gerson Briggs 5 [place] [address] Pulmonary Disease 04/08/24 Babatunde Cornejo DO 22 [place] [address] Endocrinology 04/08/24 Delaney Cantu [address] [place] [address] Dermatology 04/08/24 Uzair Ruiz MD [address] [place] [address] [address] [place] [address] Gastroenterology 09/05/24 Dr. Bravo [facility] Orthopedics [address] [place] [address] Orthopaedic Surgery 05/15/24 documented as of this encounter
--- OUTSIDE RECORDS SUMMARY | 2024-12-30 16:08 | XMS_ITS | Encounter Summary ---
Author Organization [employer] Address 75 [facility] 7t [place] [address] Care Team Providers Care Sanitary Aide Name Role Phone Nikki James MD Primary Care Provider [phone] Mary Rain PharmD Unavailable Gerson Briggs Unavailable [phone] Babatunde Cornejo DO Unavailable [phone] Delaney Cantu Unavailable Uzair Ruiz MD Unavailable Encounter Details Date Type Department Care Team (Late st Contact Info) Description 10/21/2023 Orders Only [facility] MEDICINE [address] [place], [place] [phone] Nikki James MD [address] [place], [place] [phone] Social History Tobacco Use Types Packs/Day Years [...] documented as of this encounter Care Teams Sanitary Aide Relationship Specialty Start Date End Date Nikki James MD [address] [place] [address] PCP - General Family Medicine 04/24/18 Mary Rain, PharmD [address] [place] [address] Pharmacist Internal Medicine 01/26/23 Gerson Briggs [address] [place] [address] Pulmonary Disease 04/08/24 Babatunde Cornejo DO [address] [place] [address] Endocrinology 04/08/24 Delaney Cantu [facility] FLO[address] [place] [address] Dermatology 04/08/24 Uzair Ruiz MD [address] [place] [address] [address] [place] [address] Gastroenterology 09/05/24 Dr. Bravo [facility] Orthopedics [address] [place] [address] Orthopaedic Surgery 05/15/24 documented as of this encounter
== END 2024-12-30 13:59 | disposition home or self-care (01) ==
LOC: HO.HMGAL 13:50
PROVIDERS: PCP Family Medicine; Visit Provider Registered Nurse Emergency
DX: J30.89 Other allergic rhinitis (principal)
CPT/HCPCS: 95117; 95165

== ENCOUNTER 2025-02-12 11:21 | Outpatient (AMB) | payer OTHER, SELFPAY ==
--- OUTSIDE RECORDS SUMMARY | 2024-09-02 09:30 | XMS_ITS ---
Author Organization [facility] Address [address] [place] [address] Care Team Providers Care Mens Locker Room Attendant Name Role Phone Erika REYNOSO, Nikki Primary Care Provider Vania Uzair Elizalde [phone] REASON FOR VISIT gerd,heartburn Encounters Encounter Location Date Provider Diagnosis [facility] [place] Out[facility] [address] [place], [place] [id number] 09/02/2024 Uzair Ruiz Hiatal hernia K44. 9 and Gastro-esophageal reflux disease without esophagitis K21.9 Assessments Encounter Date Diagnosis (ICD Code) Assessment Notes Treatment Notes Treatment Clinical Notes Section Notes 09/02/2024 Hiatal hernia (ICD-10 - K44.9) 09/02/2024 Gastro-esophagea l reflux disease without esophagitis (ICD-10 - K21.9) Plan Of Treatment No Information Progress Notes * Syed TOUSSAINTOB:1965 (59 yo F)Acc No.[id number]:09/02/2024 EGD/MAC Patient: Ruthie MCCANN Provider: Smita Ruiz MD :1965 A ge:59 Y S ex:Female Date:09/02/2024 Address:[address] [place] [address], [facility] Pcp:Nikki James MD Subjective: * Chief Complaints: * 1 . Gerd,heartburn. * Medical History: Objective: * Vitals: Assessment: * Assessment: 1. H iatal hernia - K44.9 (Primary) 2 . G shreya-esophageal reflux disease without esophagitis - K21.9 Plan: * Treatment: * Procedure Codes: 4 3239 UPPER GI ENDOSCOPY, BIOPSY * * The named appointment provid er may or may not be the originator of this progress note, and it is not deemed complete until electronically signed by the appointment provider. Sign off status: Pending * Provider: Smita Ruiz MD Date: 0 09/02/2024 Generated for Gill garcia/Nahomy/Lamonteitting on: 1 03:34 PM EDT
--- OUTSIDE RECORDS SUMMARY | 2025-02-10 09:30 | XMS_ITS | Encounter Summary ---
Author Organization [employer] Address [address] [facility] 7t [place] [address] Care Team Providers Care Manager Architectural Name Role Phone [place], Nikki REYNOSO Primary Care Provider [phone] Mary Rain PharmD Unavailable Gerson Briggs Unavailable [phone] Babatunde Cornejo DO Unavailable [phone] Delaney Cantu Unavailable Uzair Ruiz MD Unavailable Reason for Visit * Reason Comments Injections Immunizations Encounter Details Date Type Department Care Team (Late st Contact Info) Description 02/10/2025 9:30 AM EDT Nurse Only [facility] [address] [place] [address] Ivanna White, RN Encounter for immunization Social History Tobacco Use Types Packs/Day Years [...] AM EDT documented as of this encounter Progress Notes * Ivanna White RN - 02/10/2025 9:30 AM EDT SUBJECTIVE: Ruthie Toussaint is a 59 y.o. year old female who presents for Injections and Immunizations Preferred language for medical information: Glove Brusher needed: No, speaks some Greenlandic Standing Ordered verified: Yes, standing order expiration date: 10/18/25 Ruthie Toussaint denies any difficulties with previous injection that was received. Pt asked for flu shot today as well. Allergies[1] OBJECTIVE: B-12 injection given in right deltoid, medication was tolerated well. Flu shot given in left deltoid, tolerated well. ASSESSMENT: Vitamin B12 deficiency Healthcare maintenance PLAN: Ruthie Toussaint will return for next injection on 03/13/25. [x] Advised to monitor injection site for any increased redness or swelling or fever [x] Next appointment given for monthly B12 injection Ruthie Toussaint agrees with plan of care and verbalized understanding of instructions/education. Ivanna White RN [1] Allergies Allergen Reactions Amoxicillin Anaphylaxis Beta Adrenergic Blockers Shortness of breath Penicillins Anaphylaxis Iodinated Contrast Media Morphine Headache documented in this encounter Plan of Treatment Upcoming Encounters Date Type Department Care Team (Late st Contact Info) Description 02/20/2025 9:15 AM EDT Office Visit [facility] [address] [place] [address] Nikki James MD [address] [place] [address] 03/13/2025 1:00 PM EST Nurse Only [facility] [address] [place] [address] documented as of this encounter Goals Goal Patient Goal Type Associated Problems Recent Progress Patient-Stated? Author Blood Pressure < 140/90 Blood Pressure 130/90(2024 11:20 AM EDT) No Mary Forbes PharmD Hemoglobin A1c < 7 Result Component 6.4( 12:00 AM EDT) No Mary Forbes PharmD documented as of this encounter Visit Diagnoses Diagnosis Encounter for immunization documented in this encounter Administered Medications Active Administered Medications - up to 3 most recent administrations Medication Order MAR Action Action Date Dose Rate Site cyanocobalamin (Vitamin B-12) injection 1,000 mcg 1,000 mcg, Intramuscular, Weekly, First dose on 10/19/24 at 0900, Inject 1ml Im weekly x 4 weeks then 1ml monthly x 12 months. Thank you.Indications:B12 deficiency Given 02/10/2025 9:57 AM EDT 1,000 mcg Right Deltoid Given 01/03/2025 2:00 PM EDT 1,000 mcg Le ft Deltoid Given 11/27/2024 3:16 PM EDT 1,000 mcg Le ft Deltoid documented in this encounter Additional Health Concerns Assessment Noted Time PHQ-9 Depression Total Score: 12 024 10:49 AM EDT documented as of this encounter Care Teams Manager Architectural Relationship Specialty Start Date End Date Nikki James MD [address] [place] [address] [place] [address] PCP - General Family Medicine 04/24/18 Mary Rain, Kisha [address] [place] [address] Pharmacist Internal Medicine 01/26/23 Gerson Briggs 5 [place] [address] Pulmonary Disease 04/08/24 Babatunde Cornejo DO [address] [place] [address] Endocrinology 04/08/24 Delaney Cantu [address] [place] [address] Dermatology 04/08/24 Uzair Ruiz MD [address] [place] [address] Gastroenterology 09/05/24 Dr. Bravo [facility] Orthopedics [address] [place] [address] Orthopaedic Surgery 05/15/24 documented as of this encounter
[2025-02-12 11:29] VITALS: BP 90/50; PULSE 96; O2SAT 96; BMI 30.3
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
--- OUTSIDE RECORDS SUMMARY | 2025-02-12 15:34 | XMS_ITS | Encounter Summary ---
Author Organization [employer] Address [address] [facility] 7t [place] [address] Care Team Providers Care Utility Lineman Name Role Phone Montcalm, Nikki REYNOSO Primary Care Provider [phone]- [phone] Mary Rain PharmD Unavailable Gerson Briggs Unavailable [phone] Babatunde Cornejo DO Unavailable [phone] Delaney Cantu Unavailable Uzair Ruiz MD Unavailable Reason for Referral * Consultation (STAT) - Closed Specialty Diagnoses / Procedures Referred By Conteliana t Referred To Contact Obstetrics and Gynecology Diagnoses Labial cyst Jenna Walter MD [address] [place] [address] Phone: tel: fax: [facility] Referral ID Status Reason Start Date Expiration Date V isits Requested Visits Authorized [id number] Closed Specialty Services Required 06/11/2024 06/11/2025 1 1 Encounter Details Date Type Department Care Team (Late st Contact Info) Description 06/11/2024 Orders Only [facility] [address] [place], [place] [phone] Jenna Walter MD [address] [place], [place] [phone] Labial cyst (Primary Dx) Social History Tobacco [...] Description 02/20/2025 9:15 AM EDT Office Visit [facility] [address] [place] [address] Nikki James MD [address] [place], [place] [phone] 03/13/2025 1:00 PM EST Nurse Only [facility] [address] [place] [address] Scheduled Referrals Name Type Priority Associated Diagnoses [...] documented as of this encounter Care Teams Utility Lineman Relationship Specialty Start Date End Date Nikki James MD [address] [place] [address] PCP - General Family Medicine 04/24/18 Mary Rain, PharmD [address] [place] [address] Pharmacist Internal Medicine 01/26/23 Gerson Briggs [address] [place] [address] Pulmonary Disease 04/08/24 Babatunde Cornejo DO [address] [place] [address] Endocrinology 04/08/24 Delaney Cantu [address] [place] [address] [address] [place] [address] Dermatology 04/08/24 Uzair Ruiz MD [address] [place] [address] Gastroenterology 09/05/24 Dr. Bravo [facility] Orthopedics [address] [place] [address] Orthopaedic Surgery 05/15/24 documented as of this encounter
--- OUTSIDE RECORDS SUMMARY | 2025-02-12 15:34 | XMS_ITS | Encounter Summary ---
Author Organization [employer] Address [address] [facility] 7t [place] [address] Care Team Providers Care Color Maker Name Role Phone Nikki James MD Primary Care Provider [phone] Mary Rain PharmD Unavailable Gerson Briggs Unavailable [phone] Babatunde Cornejo DO Unavailable [phone] Delaney Cantu Unavailable Uzair Ruiz MD Unavailable Reason for Visit * Reason Comments Med Refill Encounter Details Date Type Department Care Team (Late st Contact Info) Description 08/02/2024 Refill [facility] [address] [place], [place] [phone] Nikki James MD [address] [place], [place] [phone] Seasonal allergies Social History Tobacco Use Types [...] Description 02/20/2025 9:15 AM EDT Office Visit [facility] [address] [place] [address] Nikki James MD [address] [place] [address] 03/13/2025 1:00 PM EST Nurse Only [facility] [address] [place] [address] documented as of this encounter Goals Goal [...] documented as of this encounter Care Teams Color Maker Relationship Specialty Start Date End Date Nikki James MD [address] [place] [address] PCP - General Family Medicine 04/24/18 Mary Rain, ElishaD [address] [place] [address] Pharmacist Internal Medicine 01/26/23 Gerson Briggs 5 [place] [address] Pulmonary Disease 04/08/24 Babatunde Cornejo DO [address] [place] [address] Endocrinology 04/08/24 Delaney Cantu [address] [address] Dermatology 04/08/24 Uzair Ruiz MD [address] [place] [address] Gastroenterology 09/05/24 Dr. Bravo [facility] [address] [place] [address] Orthopaedic Surgery 05/15/24 documented as of this encounter
--- OUTSIDE RECORDS SUMMARY | 2025-02-12 15:35 | XMS_ITS | Encounter Summary ---
Author Organization [employer] Address [address] [facility] 7t [place] [address] Care Team Providers Care Slackline Operator Name Role Phone AvoyellesNikki melgar MD Primary Care Provider [phone]- [phone] Mary Rain PharmD Unavailable Gerson Briggs Unavailable [phone] Babatunde Cornejo DO Unavailable [phone] Dealney Cantu Unavailable Uzair Ruiz MD Unavailable Reason for Visit * Reason Comments Med Refill Encounter Details Date Type Department Care Team (Late st Contact Info) Description 04/25/2023 Refill [facility] [address] [place] [address] Pauline Berger MD [address] [place], [place] [phone] Social History Tobacco Use Types Packs/Day Years [...] 02/20/2025 9:15 AM EDT Office Visit [facility] [address] [place] [address] Nikki James MD [address] [place] [address] 03/13/2025 1:00 PM EST Nurse Only [facility] [address] [place] [address] documented as of this encounter Goals Goal [...] documented as of this encounter Care Teams Slackline Operator Relationship Specialty Start Date End Date Nikki James MD [address] [place] [address] PCP - General Family Medicine 04/24/18 Mary Rain PharmD [address] [place] [address] Pharmacist Internal Medicine 01/26/23 Gerson Briggs [address] [place] [address] Pulmonary Disease 04/08/24 Babatunde Cornejo DO 22 [place] [address] Endocrinology 04/08/24 [address]aney [address] [place] [address] Dermatology 04/08/24 Uzair Ruiz MD [address] [place] [address] Gastroenterology 09/05/24 Dr. Bravo [facility] Orthopedics [address] [facility] [place] [facility] [address] Orthopaedic Surgery 05/15/24 documented as of this encounter
--- OUTSIDE RECORDS SUMMARY | 2025-02-12 15:35 | XMS_ITS | Encounter Summary ---
Author Organization [employer] Address [address] [facility] 7t [place] [address] Care Team Providers Care Campaign Manager Name Role Phone Nikki James MD Primary Care Provider [phone] Mary Rain PharmD Unavailable Gerson Briggs Unavailable [phone] Clemente Babatunde Babb DO Unavailable [phone] Delaney Cantu Unavailable Uzair Ruiz MD Unavailable Encounter Details Date Type Department Care Team (Late st Contact Info) Description 11/10/2022 Orders Only [facility] MEDICINE [address] [place] [address] [phone] Lisbeth Taylor LPN Social History Tobacco Use [...] Description 02/20/2025 9:15 AM EDT Office Visit [facility] [address] [place] [address] [phone] Nikki James MD [address] [place], [place] [phone] 03/13/2025 1:00 PM EST Nurse Only [facility] [address] [place] [address] documented as of this encounter Visit Diagnoses Not on filedocumented in this encounter Care Teams Campaign Manager Relationship Specialty Start Date End Date Nikki James MD [address] [place] [address] PCP - General Family Medicine 04/24/18 Mary Rain, Kisha [address] [place] [address] Pharmacist Internal Medicine 01/26/23 Gerson Briggs 5 [place] [address] Pulmonary Disease 04/08/24 Babatunde Cornejo DO [address] [place] [address] Endocrinology 04/08/24 Delaney Cantu [address] [address] Dermatology 04/08/24 Uzair Ruiz MD [address] [place] [address] Gastroenterology 09/05/24 Dr. Bravo [facility] Orthopedics [address] [place] [address] Orthopaedic Surgery 05/15/24 documented as of this encounter
--- OUTSIDE RECORDS SUMMARY | 2025-02-12 15:35 | XMS_ITS | Encounter Summary ---
Author Organization [employer] Address [address] [facility] 7t [place] [address] Care Team Providers Care Catcher Plug Name Role Phone Nikki James MD Primary Care Provider [phone] Mary Rain PharmD Unavailable Gerson Briggs Unavailable [phone] Clemente, Babatunde Babb DO Unavailable [phone] Delaney Cantu Unavailable Uzair Ruiz MD Unavailable Encounter Details Date Type Department Care Team (Late st Contact Info) Description 06/02/2022 Abstract [facility] MEDICINE [address] [place] [address] [phone] Nikki James MD [address] [place] [address] [phone] Social History Tobacco Use Types Packs/Day Years [...] Description 02/20/2025 9:15 AM EDT Office Visit [facility] MEDICINE [address] [place], [place] [phone] Nikki James MD 230 [place], [place] [phone] 03/13/2025 1:00 PM EST Nurse Only [facility] MEDICINE [address] [place] [address] documented as of this encounter Procedures Procedure [...] on filedocumented in this encounter Care Teams Catcher Plug Relationship Specialty Start Date End Date Nikki James MD [address] [place] [address] PCP - General Family Medicine 04/24/18 Mary Rain, ElishaD [address] [place] [address] Pharmacist Internal Medicine 01/26/23 Gerson Briggs [address] [place] [address] Pulmonary Disease 04/08/24 Babatunde Cornejo DO [address] [place] [address] Endocrinology 04/08/24 Delaney Cantu [address] [facility] [address] [place] [address] Dermatology 04/08/24 Uzair Ruiz MD 10 [facility] [address] [place] [address] Gastroenterology 09/05/24 Dr. Bravo [facility] Orthopedics [address] [place] [address] Orthopaedic Surgery 05/15/24 documented as of this encounter
--- OUTSIDE RECORDS SUMMARY | 2025-02-12 15:35 | XMS_ITS | Encounter Summary ---
Author Organization [employer] Address 75 [facility] 7t [place] [address] Care Team Providers Care Cascade Operator Name Role Phone Nikki James MD Primary Care Provider +1- [phone] Mary Rain PharmD Unavailable Gerson Briggs Unavailable [phone] Clemente Babatunde Holley DO Unavailable [phone] Delaney Cantu Unavailable Uzair Ruiz MD Unavailable Reason for Visit * Reason Onset Date Comments Nurse Triage 11/18/2024 Encounter Details Date Type Department Care Team (Late st Contact Info) Description 11/18/2024 Telephone [facility] [address] [place], [place] [phone] Nikki James MD 230 [place], [place] [phone] Nurse Triage Social History Tobacco Use Types [...] Elliott RN - 11/18/2024 4:23 PM EDT [facility] noted from 11/16/2024 printed and will be scanned into pt chart under media. * Telephone Encounter - Lucero Mares RN - 11/18/2024 4:02 PM EDT No litigation services manager needed as this life underwriter speaks Telugu. Call returned to [facility] to triage belowat [phone]. Reports having nausea since Monday. Per pt seen at [facility] on Monday for sx. Ptwas given medications for nausea while at ER . Per pt was having constipation. Pt found to have colitis. Elevated WBC. Pt given abx, tylenol and ibuprofen . Pt is taking meds with food and drinking plenty of water. Pt offered to have instED see patient or seek ORC. Pt states called pharmacy and hasa med pendign but not sure if ondansetron. Pt agrees to take number for isntED PRN. Reviewed home care advise, ER precautions and reasons to call back. Will send to PCP to review and further advise if short course Rx for ondansetron can be sent for patient. Sent to team to obtain [facility] notes for provider review as well. [...] higher acuity questions Please contact pt at [phone]. (Telugu Speaker) documented in this encounter Plan of Treatment Upcoming Encounters Date Type Department Care Team (Late st Contact Info) Description 02/20/2025 9:15 AM EDT Office Visit [facility] [address] [place] [address] Nikki James MD [address] [place] [address] 03/13/2025 1:00 PM EST Nurse Only [facility] [address] [place] [address] documented as of this encounter Goals Goal [...] documented as of this encounter Care Teams Cascade Operator Relationship Specialty Start Date End Date Nikki James MD [address] [place] [address] PCP - General Family Medicine 04/24/18 Mary Rain PharmD 230 [place] [address] Pharmacist Internal Medicine 01/26/23 Gerson Briggs 5 [place] [address] Pulmonary Disease 04/08/24 Babatunde Cornejo DO 22 [place] [address] Endocrinology 04/08/24 Delaney Cantu [facility] [address] Dermatology 04/08/24 Uzair Ruiz MD [address] [place] [address] Gastroenterology 09/05/24 Dr. Bravo [facility] Orthopedics [address] [place], [place] [address] [address] Orthopaedic Surgery 05/15/24 documented as of this encounter
--- OUTSIDE RECORDS SUMMARY | 2025-02-12 15:35 | XMS_ITS | Clinical Summary ---
Author Organization [facility] Address [address] [place] [address] Care Team Providers Care Supervisor Detasseling Crew Name Role Phone Unavailable Primary Care Provider [...] Vaccine (1 of 2) 2016 COVID-19 Vaccine (1 - season) 2024 RSV Vaccine 50 years and old er and Patients (1 - 1-dose 75+ series) 2041
--- OUTSIDE RECORDS SUMMARY | 2025-02-12 15:35 | XMS_ITS | Encounter Summary ---
Author Organization [employer] Address 75 [facility] 7t [place] [address] Care Team Providers Care Manager Social Responsibility Name Role Phone Nikki James MD Primary Care Provider [phone]- [phone] Mary Rain PharmD Unavailable Gerson Briggs Unavailable [phone] Clemente Babatunde Holley DO Unavailable [phone] Delaney Cantu Unavailable Uzair Ruiz MD Unavailable Reason for Visit * Reason Onset Date Comments Durable Medical Equipment 07/13/2022 Encounter Details Date Type Department Care Team (Late st Contact Info) Description 07/13/2022 Telephone [facility] 230 [place], [place] [phone] Nikki James MD 230 [place], [place] [phone] Durable Medical Equipment Social History Tobacco Use [...] send to medline Please contact pt at [phone] documented in this encounter Plan of Treatment Upcoming Encounters Date Type Department Care Team (Late st Contact Info) Description 02/20/2025 9:15 AM EDT Office Visit [facility] [address] [place] [address] Nikki James MD [address] [place] [address] 03/13/2025 1:00 PM EST Nurse Only [address] [address] documented as of this encounter Visit Diagnoses Not on filedocumented in this encounter Care Teams Manager Social Responsibility Relationship Specialty Start Date End Date Nikki James MD [address] [place] [address] PCP - General Family Medicine 04/24/18 Mary Rain, ElishaD [address] [place] [address] Pharmacist Internal Medicine 01/26/23 Gerson Briggs 5 [place] [address] Pulmonary Disease 04/08/24 Babatunde Cornejo DO 22 [place] [address] Endocrinology 04/08/24 Delaney Cantu [address] [place] [address] Dermatology 04/08/24 Uzair Ruiz MD [address] [place] [address] Gastroenterology 09/05/24 Dr. Bravo [facility] Orthopedics [address] [place] [address] Orthopaedic Surgery 05/15/24 documented as of this encounter
--- OUTSIDE RECORDS SUMMARY | 2025-02-12 15:35 | XMS_ITS | Encounter Summary ---
Author Organization [employer] Address 75 [facility] 7t [place] [address] Care Team Providers Care Affiliate Manager Name Role Phone Nikki James MD Primary Care Provider [phone]- [phone] Mary Rain PharmD Unavailable Gerson Briggs Unavailable [phone] Clemente Babatunde Holley DO Unavailable [phone] Delaney Cantu Unavailable Uzair Ruiz MD Unavailable Reason for Visit * Reason Onset Date Comments Nurse Triage 05/16/2023 Encounter Details Date Type Department Care Team (Late st Contact Info) Description 05/16/2023 Telephone [facility] 230 [place] [address] Nikki James MD 230 [place], [place] [phone] Nurse Triage Social History Tobacco Use Types [...] 05/16/2023 12:32 PM EST Triage call with [employer] door to door fundraising collector [id number] Pt reports positive Covid test 05/10/23. Pt [...] The caller accepted this outcome Patient speaks swazi documented in this encounter Plan of Treatment Upcoming Encounters Date Type Department Care Team (Late st Contact Info) Description 02/20/2025 9:15 AM EDT Office Visit [facility] [address] [place] [address] Nikki James MD [address] [place] [address] 03/13/2025 1:00 PM EST Nurse Only [facility] [address] [place] [address] documented as of this encounter Goals Goal [...] documented as of this encounter Care Teams Affiliate Manager Relationship Specialty Start Date End Date Nikki James MD 230 [place] [address] PCP - General Family Medicine 04/24/18 Mary Rain PharmD 230 [place] [address] Pharmacist Internal Medicine 01/26/23 Gerson Briggs 5 [place] [address] Pulmonary Disease 04/08/24 Babatunde Cornejo DO 22 [place] [address] Endocrinology 04/08/24 Delaney Cantu [address] [address] Dermatology 04/08/24 Uzair Ruiz MD [address] [place] [address] Gastroenterology 09/05/[address] [facility] Orthopedics [address] [place] [address] Orthopaedic Surgery 05/15/24 documented as of this encounter
--- OUTSIDE RECORDS SUMMARY | 2025-02-12 15:35 | XMS_ITS | Encounter Summary ---
Author Organization [employer] Address 75 [facility] 7t [place] [address] Care Team Providers Care Agricultural Adviser Name Role Phone Nikki James MD Primary Care Provider [phone]- [phone] Mary Rain PharmD Unavailable [phone] Gerson Briggs Unavailable [phone] Clemente Babatunde Holley DO Unavailable [phone] Delaney Cantu Unavailable Uzair Ruiz MD Unavailable Reason for Visit * Reason Onset Date Comments Referral 02/15/2023 Encounter Details Date Type Department Care Team (Late st Contact Info) Description 02/15/2023 Telephone [facility] 230 [place], [place] [phone] Nikki James MD 230 [place], [place] [phone] Referral Social History Tobacco Use Types Packs/Day [...] specialist due to headaches and aneurysm historial. [facility] Neurology [facility] [address] [place] [address] documented in this encounter Plan of Treatment Upcoming Encounters Date Type Department Care Team (Late st Contact Info) Description 02/20/2025 9:15 AM EDT Office Visit [facility] [address] [place] [address] Nikki James MD [address] [place] [address] 03/13/2025 1:00 PM EST Nurse Only [facility] [address] [place] [address] documented as of this encounter Goals Goal Patient Goal Type Associated Problems Recent Progress Patient-Stated? Author Blood Pressure < 140/90 Blood Pressure 130/90(2024 11:20 AM EDT) No Mary Forbes PharmD Hemoglobin A1c < 7 Result Component 6.4(07/16/202 5 12:00 AM EDT) No Mary Forbes, PharmD documented as of this encounter Visit Diagnoses Not on filedocumented in this encounter Additional Health Concerns Assessment Noted Time PHQ-9 Depression Total Score: 10 023 11:39 AM EDT documented as of this encounter Care Teams Agricultural Adviser Relationship Specialty Start Date End Date Nikki James MD 230 [place] [address] PCP - General Family Medicine 04/24/18 Mary Rain, PharmD 230 [place] [address] Pharmacist Internal Medicine 01/26/23 Gerson Briggs 5 [place] [address] Pulmonary Disease 04/08/24 Babatunde Cornejo DO 22 [place] [address] Endocrinology 04/08/24 Delaney Cantu [address] [place] [address] Dermatology 04/08/24 Uzair Ruiz MD [address] [place] [address] Gastroenterology 09/05/24 Dr. Bravo [facility] Orthopedics [address] [place] [address] Orthopaedic Surgery 05/15/24 documented as of this encounter
--- OUTSIDE RECORDS SUMMARY | 2025-02-12 15:35 | XMS_ITS | Clinical Summary ---
Author Organization [facility] Address [address] [facility] [address] [place] [address] Phone Care Team Providers Care Supervisor Webbing Name Role Phone Nikki James MD Primary [...] SKIN EVERY 7 DAYS 9 mL 1 12/25/19 25 Active Active Problems Problem Noted Date Diagnosed Date [...] Encounters Date Type Department Care Team Description 01/20/2025 Telephone [facility] Endocrinology [address] [place] [address] [place] [address] Babatunde Cornejo, DO alternatives to Ozempic (alternatives to Ozempic) 01/20/2025 Telephone [facility] Endocrinology [address] [place] [address] [place] [address] Babatunde Cornejo DO Medication Refill (Jardiance refill) 12/21/2024 Refill [facility] Endocrinology [address] [place] [address] [place] [address] Babatunde Cornejo, DO Medication Refill 11/19/2024 11:30 AM EDT Office Visit [facility] Endocrinology [address] [place] [address] [place] [address] Babatunde Cornejo, DO Type 2 diabetes mellitus without complication, with long-term current use of insulin (Primary Dx); Hyperlipidemia LDL goal <70 from Last 3 Months Social History Tobacco [...] 11:30 AM EST Office Visit [facility] [address] [place] [address] Babatunde Cornejo DO [address] [place] [address] [email or web address] Health Maintenance Due Date Last Done Comments CREATININE LEVEL 1966 POTASSIUM LEVEL 1966 DEPRESSION SCREENING 1978 HEPATITIS C SCREENING 1984 HIV ONE-TIME SCREENING (18-65 YEARS) 1984 COLOGUARD 08/17/2011 COLONOSCOPY 08/17/2011 COLORECTAL CANCER SCREENING 08/17/2011 FIT TEST 08/17/2011 FOBT 08/17/2011 SIGMOIDOSCOPY 08/17/2011 VIRTUAL COLONOSCOPY 08/17/2011 RSV VACCINE (1 - Risk 50-74 years 1-dose series) 2016 ZOSTER VACCINES (1 of 2) 2016 PAP [...] use of insulin from Last 3 Months or Most Recently Relevant to Health Maintenance Results * (ABNORMAL) Hemoglobin A1c (11/04/2024 2:51 PM EDT) HEMOGLOBIN A1C 6.4(H) 4.3 - 5.8 % [facility] Blood 11/04/2024 2:51 PM EDT 11/04/2024 2:58 PM EDT us Babatunde Cornejo DO LAB BLOOD ORDERABLES Final Resul t [facility] [address] [place] [address] * (ABNORMAL) Lipid panel (11/04/2024 2:51 PM EDT) HDL 55 mg/dL [facility] Comment: Interpretation <40 mg/dL: Low HDL cholesterol (major risk factor for CHD) Greater than or equal to 60 mg/dL: High HDL cholesterol ( negative risk factor for CHD) HDL - cholesterol is affected by a number of factors, e.g. smoking, excerise, hormones, sex and age. CHOLESTEROL 160 0 - 240 mg/dL [facility] TRIGLYCERIDES 84 30 - 160 mg/dL [facility] LDL 88 50 - 129 mg/dL [facility] Comment: LDL levels in terms of risk for coronary heart disease: <100 mg/dL: Optimal 100-129 mg/dL: Near or above optimal 130-159 mg/dL: Borderline high 160-189 mg/dL: High >190 mg/dL: Very High CARDIAC RISK RATIO 2.9(L) 3.3 - 4.4 C [facility] Blood 11/04/2024 2:51 PM EDT 11/04/2024 2:58 PM EDT Babatunde Cornejo DO LAB BLOOD ORDERABLES Final Resul t [facility] [address] [place], [place] [phone] from Last 3 Months or Most Recently Relevant to Health Maintenance Insurance MEDICARE PART A [place] [id number] [facility] ONE CARE MEDICARE REPLACEMENT JOHN HUTCHISON [id number] MEDICARE PART A & B [facility] ONE CARE MEDICARE REPLACEMENT JOHN HUTCHISON [id number] MEDICARE PART A & B [facility] ONE CARE MEDICARE REPLACEMENT MEDICARE PART A & B [facility] CARE MEDICARE REPLACEMENT MEDICARE PART A & B [facility] ONE CARE MEDICARE REPLACEMENT MEDICARE PART A & B [facility] ONE CARE MEDICARE REPLACEMENT Care Teams Supervisor Webbing Relationship Specialty Start Date End Date Wellford, Nikki Vail MD [address] [place] [address] PCP - General Family Medicine 12/08/23 Additional Source Comments The information contained in this document represents components of the legal health record. It is not the complete legal health record.[facility]
--- OUTSIDE RECORDS SUMMARY | 2025-02-12 15:35 | XMS_ITS | Encounter Summary ---
Author Organization [employer] Address 75 [facility] 7t [place] [address] Care Team Providers Care Sales Applications Engineer Name Role Phone Nikki James MD Primary Care Provider [phone]- [phone] Mary Rain PharmD Unavailable [phone] Gerson Briggs Unavailable [phone] Babatunde Cornejo DO Unavailable [phone] Delaney Cantu Unavailable Uzair Ruiz MD Unavailable Encounter Details Date Type Department Care Team (Late st Contact Info) Description 10/21/2023 Orders Only [facility] 230 [place], [place] [phone] Nikki James MD 230 [place], [place] [phone] Social History Tobacco Use Types Packs/Day Years [...] Description 02/20/2025 9:15 AM EDT Office Visit [facility] [address] [place] [address] Nikki James MD [address] [place] [address] 03/13/2025 1:00 PM EST Nurse Only [facility] [address] [place] [address] documented as of this encounter Goals Goal Patient Goal Type Associated Problems Recent Progress Patient-Stated? Author Blood Pressure < 140/90 Blood Pressure 130/90(2024 11:20 AM EDT) No Dawoods-Gambpeng hawk, Mary, PharmD Hemoglobin A1c < 7 Result Component 6.4( 12:00 AM EDT) No Piers-Gambl e, Mary, PharmD documented as of this encounter Visit Diagnoses Not on filedocumented in this encounter Additional Health Concerns Assessment Noted Time PHQ-9 Depression Total Score: 10 023 11:39 AM EDT documented as of this encounter Care Teams Sales Applications Engineer Relationship Specialty Start Date End Date Nikki James MD [address] [place] [address] PCP - General Family Medicine 04/24/18 Mary Rain, PharmD 230 [place] [address] Pharmacist Internal Medicine 01/26/23 Gerson Briggs 5 [place] [address] Pulmonary Disease 04/08/24 Babatunde Cornejo DO 22 [place] [address] Endocrinology 04/08/24 Delaney Cantu [address] [address] Dermatology 04/08/24 Uzair Ruiz MD [address] [place] [address] Gastroenterology 09/05/24 Dr. Bravo [facility] Orthopedics [address] [facility] [address] Orthopaedic Surgery 05/15/24 documented as of this encounter
--- OUTSIDE RECORDS SUMMARY | 2025-02-12 15:35 | XMS_ITS | Encounter Summary ---
Author Organization [employer] Address 75 [facility] 7t [place] [address] Care Team Providers Care Architectural Superintendent Name Role Phone Nikki James MD Primary Care Provider [phone]- [phone] Mary Rain PharmD Unavailable Gerson Briggs Unavailable [phone] Clemente Babatunde Babb DO Unavailable [phone] Delaney Cantu Unavailable Uzair Ruiz MD Unavailable Encounter Details Date Type Department Care Team (Late st Contact Info) Description 10/05/2022 Orders Only [facility] [address] [place], [place] [phone] Alyssa Mehta LPN Social History Tobacco Use [...] Description 02/20/2025 9:15 AM EDT Office Visit [facility] [address] [place] [address] [phone] Nikki James MD [address] [place] [address] [phone] 03/13/2025 1:00 PM EST Nurse Only [facility] [address] [place] [address] documented as of this encounter Visit Diagnoses Not on filedocumented in this encounter Care Teams Architectural Superintendent Relationship Specialty Start Date End Date Nikki James MD 230 [place] [address] PCP - General Family Medicine 04/24/18 Mary Rain, Kisha 230 [place] [address] Pharmacist Internal Medicine 01/26/23 Gerson Briggs 5 [place] [address] Pulmonary Disease 04/08/24 Babatunde Cornejo DO 22 [place] [address] Endocrinology 04/08/24 Delaney Cantu [address] [address] Dermatology 04/08/24 Uzair Ruiz MD [address] [place] [address] Gastroenterology 09/05/24 Dr. Bravo [facility] Orthopedics [address] [place] [address] Orthopaedic Surgery 05/15/24 documented as of this encounter
--- OUTSIDE RECORDS SUMMARY | 2025-02-12 15:35 | XMS_ITS | Encounter Summary ---
Author Organization [employer] Address 75 [facility] 7t [place] [address] Care Team Providers Care Cable Mechanic Name Role Phone Nikki James MD Primary Care Provider [phone]- [phone] Mary Rain PharmD Unavailable Gerson Briggs Unavailable [phone] Clemente Babatunde Holley DO Unavailable [phone] Delaney Cantu Unavailable Uzair Ruiz MD Unavailable Reason for Visit * Reason Comments Med Refill Encounter Details Date Type Department Care Team (Late st Contact Info) Description 06/24/2024 Refill [facility] 230 [place], [place] [phone] Nikki James MD 230 [place], [place] [phone] Type 2 diabetes mellitus without complication, without long-term current use of insulin ([facility]) Social History Tobacco Use Types [...] Description 02/20/2025 9:15 AM EDT Office Visit [facility] [address] [place] [address] Nikki James MD [address] [place] [address] 03/13/2025 1:00 PM EST Nurse Only [facility] [address] [place] [address] documented as of this encounter Goals Goal Patient Goal Type Associated Problems Recent Progress Patient-Stated? Author Blood Pressure < 140/90 Blood Pressure 130/90(2024 11:20 AM EDT) No Mary Forbes PharmTacho Hemoglobin A1c < 7 Result Component 6.4( 12:00 AM EDT) No Mary Forbes PharmD documented as of this encounter Visit Diagnoses Diagnosis Type 2 diabetes mellitus without complication, without long-term current use of insulin (HCC) documented in this encounter Additional Health Concerns Assessment Noted Time PHQ-9 Depression Total Score: 12 024 10:49 AM EDT documented as of this encounter Care Teams Cable Mechanic Relationship Specialty Start Date End Date Nikki James MD 230 [place] [address] PCP - General Family Medicine 04/24/18 Mary Rain, PharmD 230 [place] [address] Pharmacist Internal Medicine 01/26/23 Gerson Briggs 5 [place] [address] Pulmonary Disease 04/08/24 Babatunde Cornejo DO 22 [place] [address] Endocrinology 04/08/24 Delaney Cantu [address] [place] [address] Dermatology 04/08/24 Uzair Ruiz MD [address] [place] [address] Gastroenterology 09/05/24 Dr. Bravo [facility] Orthopedics [address] [place] [address] Orthopaedic Surgery 05/15/24 documented as of this encounter
--- OUTSIDE RECORDS SUMMARY | 2025-02-12 15:35 | XMS_ITS | Encounter Summary ---
Author Organization [employer] Address 75 [facility] 7t [place] [address] Care Team Providers Care Notcher Name Role Phone Nikki James MD Primary Care Provider [phone]- [phone] Mary Rain PharmD Unavailable [phone] Gerson Birggs Unavailable [phone] Clemente Babatunde Babb DO Unavailable [phone] Delaney Cantu Unavailable Uzair Ruiz MD Unavailable Encounter Details Date Type Department Care Team (Late st Contact Info) Description 05/10/2022 Orders Only [facility] [address] [place], [place] [phone] Alyssa Mehta LPN Social History Tobacco Use [...] 9:15 AM EDT Office Visit [facility] [address] [place] [address] [phone] Nikki James MD [address] [place] [address] [phone] 03/13/2025 1:00 PM EST Nurse Only [facility] [address] [place] [address] documented as of this encounter Visit Diagnoses Not on filedocumented in this encounter Care Teams Notcher Relationship Specialty Start Date End Date Nikki James MD 230 [place] [address] PCP - General Family Medicine 04/24/18 Mary Rian, Kisha 230 [place] [address] Pharmacist Internal Medicine 01/26/23 Gerson Briggs 5 [place] [address] Pulmonary Disease 04/08/24 Babatunde Cornejo DO 22 [place] [address] Endocrinology 04/08/24 Delaney Cantu [address] [address] Dermatology 04/08/24 Uzair Ruiz MD [address] [place] [address] Gastroenterology 09/05/24 Dr. Bravo [facility] Orthopedics [address] [place] [address] Orthopaedic Surgery 05/15/24 documented as of this encounter
--- OUTSIDE RECORDS SUMMARY | 2025-02-12 15:35 | XMS_ITS | Encounter Summary ---
Author Organization [employer] Address 75 [facility] 7t [place] [address] Care Team Providers Care Bond Writer Name Role Phone Nikki James MD Primary Care Provider [phone]- [phone] Mary Rain PharmD Unavailable [phone] Gerson Briggs Unavailable [phone] Babatunde Cornejo DO Unavailable [phone] Delaney Cantu Unavailable Uzair Ruiz MD Unavailable Encounter Details Date Type Department Care Team (Latest Contact Info) Description 02/10/2025 Travel Social History Tobacco Use Types Packs/Day Years [...] 9:15 AM EDT Office Visit [facility] [address] [place] [address] Nikki James MD [address] [place] [address] 03/13/2025 1:00 PM EST Nurse Only [facility] [address] [place] [address] documented as of this encounter Goals Goal [...] documented as of this encounter Care Teams Bond Writer Relationship Specialty Start Date End Date Nikki James MD [address] [place] [address] PCP - General Family Medicine 04/24/18 Mary Rain PharmD [address] [place] [address] Pharmacist Internal Medicine 01/26/23 Gerson Briggs 5 [place] [address] Pulmonary Disease 04/08/24 Babatunde Cornejo DO 22 [place] [address] Endocrinology 04/08/24 Delaney Cantu [address] [place] [address] Dermatology 04/08/24 Uzair Ruiz MD [address] [place] [address] Gastroenterology 09/05/24 Dr. Bravo [facility] [address] [place] [address] Orthopaedic Surgery 05/15/24 documented as of this encounter
--- OUTSIDE RECORDS SUMMARY | 2025-02-12 15:35 | XMS_ITS | Clinical Summary ---
Author Organization [employer] Address 75 [facility] 7t [place] [address] Care Team Providers Care Opthalmic Tech Name Role Phone ElmoreNikki melgar MD Primary Care Provider [phone] Mary Rain PharmD Unavailable Gerson Briggs Unavailable [phone] Babatunde Cornejo DO Unavailable [phone] Delaney Cantu Unavailable Uzair Ruiz MD [...] without long-term current use of insulin (HCC) Take 1 tablet by mouth once daily 30 tablet 3 12/28/19 24 Active atorvastatin (Lipitor) 40 MG tabletIndications: Type 2 diabetes mellitus without complication, without long-term current use of insulin (HCC) Take 1 tablet (40 mg) by mouth [...] without long-term current use of insulin (HCC) Use as directed to monitor glucose ever 8 hours. Replace sensor every 14 days. 2 each 12/28/19 24 Active glucose blood (FreeStyle Precision Reza Test) test stripIndications:T ype 2 diabetes mellitus without complication, without long-term current use of insulin ([facility]) Test blood sugar q 8 hours 100 [...] 08/03/19 25 Active Lancets (OneTouch Delica Plus [id number]) miscIndications:Ty pe 2 diabetes mellitus without complication, without long-term current use of insulin ([facility]) USE TO TEST BLOOD SUGAR ONCE A [...] without long-term current use of insulin (HCC) Use bid. Dx diabetes 60 each 11 [...] different from the original. Enrolled in [facility] DM clinic with Mary Rain PharmD, [facility] Forest Fire Fighter: Devi Public Area Attendant Agency: [employer] [facility] Problem Noted Date Diagnosed Date B12 deficiency [...] 05/03/[address] Bravo of [facility] Class 2 drug-induced obesity with body [...] considered to be 1.7 or 2.4 mg alf. -f/u in 2 months. -10/16/24 reports doing [...] considered to be 1.7 or 2.4 mg alf. -f/u in 2 months. -10/16/24 reports doing [...] considered to be 1.7 or 2.4 mg alf. -f/u in 2 months. Dermatitis 12/28/2023 Thyroid [...] least three times. She was followed by [facility] and was last seen for her final visit Feb 2011. Her care was transferred to [facility] who she sees for her [...] least three times. She was followed by [facility] and was last seen for her final visit Feb 2011. Her care was transferred to [facility] who she sees for her [...] least three times. She was followed by [facility] and was last seen for her final visit Feb 2011. Her care was transferred to [facility] who she sees for her chronic headaches and last saw Dec 2014. Topamax is 50 bid. She is now on gabapentin 100mg bid. Other specified health status 01/11/2023 Overview (04/08/2024): -next physical exam due after 02/11/25 -followed by Dr. García Wei of [facility] -dental home is [facility] [place] -filed healthcare proxy on 07/17/2023 Assessment & Plan (02/12/2024 10:51 AM EDT): -next physical exam due after 02/11/25 -followed by Dr. García Wei of [facility] -dental home is [facility] [place] -Filed healthcare proxy on 07/17/2023 Assessment & [...] atorvastatin 40mg -Diabetic eye exam: referred to [facility] 10/16/24 -Diabetic foot exam: [...] considered to be 1.7 or 2.4 mg alf. -follow-up in 2 months. Assessment & Plan (10/16/2024 11:46 AM EDT): See above plan. Orders: Lancets (OneTouch Delica Plus [id number]) [facility]; USE TO TEST BLOOD SUGAR ONCE A [...] atorvastatin 40mg -Diabetic eye exam: referred to [facility] 10/16/24 -Diabetic foot exam: [...] considered to be 1.7 or 2.4 mg alf. -follow-up in 2 months. Orders: POCT glycosylated [...] considered to be 1.7 or 2.4 mg alf. -follow-up in 2 months. Assessment & Plan [...] face and neck, under the care of [facility]. Cantu. 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/27/2014 01/11/2023 Disuse syndrome 03/30/2012 01/11/2023 Dizziness 03/30/2012 10/21/2023 Ventricular hemorrhage 03/30/201201/11 Encounters Date Type Department Care Team Description 02/12/2025 Patient Outreach [facility] [place] [address] Nikki James MD Pre-visit Planning ([facility] screening was completed on 10/16/2024) 02/10/2025 9:30 AM EDT Nurse Only [facility] [place] [address] Ivanna White RN Encounter for immunization 02/10/2025 Travel 01/06/2025 Orders Only [facility] [place] [address] Nikki James MD VONNIE positive (Primary Dx); Arthralgia, unspecified joint 01/03/2025 2:00 PM EDT Clinical Support [facility] [place] [address] Ivanna White, RN B12 deficiency 01/03/[address] [address] Nikki James MD Referral 01/03/2025 Travel 11/27/2024 3:00 PM EDT Clinical Support [address] [place] [address] Mandi Junior, MAYA B12 deficiency 11/27/2024 Travel 11/27/2024 Refill [address] [place] [address] Nikki James MD Primary hypertension 11/19/2024 1:30 PM EDT Clinical Support [address] [address] Ivanna White, RN B12 deficiency 11/19/2024 Travel 11/18/[address] [address] Nikki James MD Nurse Triage from Last 3 Months Immunizations Immunization Administration Dates Next Due Hep A, Adult 09/22/2017 Hep B, adult 05/22/2006,09/20/2005,08/19/2005 Influenza Injectable Quadriv alant Preservative Free IIV4 MDCK 05/04/2021,03/16/2020 Influenza injectable quadriv alent IIV4 with preservative 01/25/2018,05/24/2017 Influenza injectable quadriv alent preservative free 01/18/2023,02/16/2022,07/08/2019,04/20 Influenza, IIV3, injectable 01/27/2014, 1,12/31/2009 Influenza, Split (incl. kervin fied surface antigen) 03/30/2012 Influenza, seasonal, injecta ble, preservative free 02/10/2025,02/12/2024,02/07/2016 Influenza, trivalent, adjuvanted 02/07/2016 Pfizer Covid-19 Vaccine [...] 10/16/2024 11:20 AM EDT Plan of Treatment Upcoming Encounters Date Type Department Care Team (Late st Contact Info) Description 02/20/2025 9:15 AM EDT Office Visit [facility] [address] [place] [address] Nikki James MD [address] [place], [place] [phone] 03/13/2025 1:00 PM EST Nurse Only [facility] [address] [place] [address] Health Maintenance Due Date Last Done Comments CT Colonography 1966 FIT DNA/Cologuard 1966 FIT 1966 FOBT 1966 Sigmoidoscopy 1966 Alcohol/Substance Use Screening 1978 Hepatitis A Vaccines (2 of 2 - Risk 2-dose series) 03/24/2018 09/22/2017 Pap Smear 12/27/2019 12/26/2014 Depression Monitoring 06/26/2024 12/28/2023, 024 Diabetes: Foot Exam 12/27/2024 12/28/2023, 12/28/2023, 12/28/2023, Additional history exists Cervical Cancer Screening 01/22/2025 HPV/Cotest 01/22/2025 01/23/2020, 01/23/2020 Diabetes: Urine Protein Screening 02/11/2025 02/12/2024, 01/16/2023, 05/31/2021, Additional history exists Diabetes: Hemoglobin A1C 05/09/2025 025, 11/04/2024, 10/16/2024, Additional history exists Pneumococcal Vaccine: 50+ Years (3 of 3 - PCV20 or PCV21) 06/20/2025 06/20/2020, 02/07/2016, 02/07/2016, Additional history exists Eye Exam 06/28/2025 06/29/2023, 10/2023, 06/29/2023, Additional history exists Disability Screening 10/16/2025 10/16/2024 SDOH Screening 10/16/2025 10/16/2024 Tobacco Screening 10/16/2025 10/16/2024 Lipid Panel 11/06/2025 11/06/2024, 01/23, 01/16/2023, Additional history exists Mammogram 04/05/2026 04/05/2024, 110 05/2022, 11/06/2020, Additional history exists DTaP/Tdap/Td Vaccines (3 - Td or Tdap) 02/15/2027 02/15/2017, 10/14/2013, 01/03/2000 Colonoscopy 09/16/2027 09/15/2017 Colorectal Cancer Screening 09/16/2027 RSV Patients and Patients Aged 60 years or older (1 - 1-dose 75+ series) 2041 Hepatitis B Vaccines Completed 05/22/2006, 09/20/2005, 08/19/2005 HIV Screening Completed 05/31/2021 Zoster Vaccines Completed 10/22/2021, 08/20/2021 COVID-19 Vaccine Completed 02/12/2024, , 11/17/2020 Hepatitis C Screening Completed 10/16/2024, 019 Influenza Vaccine Completed 02/10/2025, , 01/18/2023, Additional history exists HIB Vaccines Aged Out [...] 6.4( 12:00 AM EDT) No Mary Forbes, Kisha Procedures Procedure Name Priority Date/Time Associated Diagnosis Comments CT ABDOMEN PELVIS WO CONTRAST Routine 11/16/2024 11:50 PM EDT LIPID PANEL, STANDARD (EXTERNAL RESULTS ONLY) Routine 11/06/2024 10:13 AM EDT HEMOGLOBIN A1C Routine 11/06/2024 HEPATITIS PANEL, GENERAL Routine 10/16/2024 11:45 AM EDT Transaminitis BI MAMMOGRAM SCREENING TOMOSYNTHESIS BILATERAL Routine 04/05/2024 [...] PM EDT Narrative 11/16/2024 11:51 PM EDT [place] [address] CT Scan Report Signed Patient: Ruthie Toussaint MR#: [id number] 6 : 1965 Acct:[id number] Age/Sex: 59 / F ADM Date: 11/16/24 Loc: HO.ED Attending Dr: Ordering Physician: Mann Em PA-C Date of Service: 11/16/24 Procedure(s): CT abdomen pelvis wo IV con Accession Number(s): [id number] cc: iNkki James MD; Mann Em PA-C Report Number: [id number]: Total DLP = 621.00 mGy-cm CLINICAL HISTORY: [...] in OV> 11/16/242350 DD/ 49 TD/TT: 11/16/242349 Dye Expert: Procedure Note Donotuseinterpreter, Image - 11/17/[address] [place] [address] [address] Scan Report Signed Patient: Sameera Toussaint#: [id number] 6 : 1965Acct:[id number] Age/Sex: 59 / FADM Date: 11/16/24 Loc: .ED Attending Dr: Ordering Physician: Mann Em PA-C Date of Service: 11/16/24 Procedure(s): CT abdomen pelvis wo IV con Accession Number(s): [id number] cc: Nikki James MD; Mann Em PA-C Report Number: [id number]: Total DLP = 621.00 mGy-cm CLINICAL HISTORY: [...] in OV> 11/16/242350 DD/ 49 TD/TT: 11/16/242349 Dye Expert: [facility] External Provider IMG CT PROCEDURES Edited Result - Final * Lipid Panel, Standard (11/06/2024 10:13 AM EDT) Pathologist [facility] Total Cholesterol 160 HDL Cholesterol 55 Triglycerides 84 LDL-Cholesterol 89 Cholesterol/HDL Ratio 2.9 Blood Venous blood specimen / Unknown 11/06/2024 10:13 AM EDT [facility] Provider POINT OF CARE TEST ENTER/ EDIT ORDERABLES Final Result * Hemoglobin A1c (11/06/2024) Pathologist [facility] Hemoglobin A1c 6.4 Blood Venous blood specimen / Unknown [facility] Provider LAB BLOOD ORDERABLES Nadeen l Result * Hepatitis Panel, General (10/16/2024 11:45 AM EDT) Pathologist [facility] Hepatitis A IgM Nonreactive Nonreactive [facility] Comment:IgM antibodies to NICOLAS V not detected; does not exclude earlyacute or recovered HAV infection. ~Hepatitis B Surface Antibody GRAYZONE Nonreactive [facility] Comment:GRAYZONE: 8.00 mIU/m L TO 11.99 mIU/mLTHE IMMUNE STATUS OF THE INDIVIDUAL SHOULD BE FURTHERASSESSED BY CONSIDERING OTHER FACTORS, SUCH CLINICALSTATUS, FOLLOW-UP TESTING, ASSOCIATED RISK FACTORS, AND THEUSE OF ADDITIONAL DIAGNOSTIC INFORMATION. Hepatitis B Core Antibody Nonreactive Nonreactive [facility] Hepatitis C Antibody Nonreactive Nonreactive [facility] Comment:Antibodies to HCV no t detected; does not exclude early acuteHCV infection. Hepatitis B Surface Ag Negative Negative [facility] Blood Venous blood specimen / Unknown 10/16/2024 11:45 AM EDT 10/16/2024 1:20 PM EDT Nikki James MD LAB BLOOD ORDERABLES Final Result [facility] [address] [place] [address] [phone] * BI Mammogram Screening Tomosynthesis Bilateral (04/05/2024 1:00 PM EST) Anatomical Region Laterality Modality Breast Bilateral Mammography 04/05/2024 1:00 PM EST Narrative 04/15/2024 3:59 PM EST [address] [place] [address] Mammography Report Signed Patient: Ruthie Toussaint MR#: [id number] 6 : 1965 Acct:[id number] Age/Sex: 58 / F ADM Date: 04/05/24 Loc: HO.MAMMO Attending Dr: Nikki James MD Ordering Physician: Nikki James MD Results: 1N egative Date of Service: 04/05/24 Follow Up: 1 Year From Orig ina Mammogram Procedure(s): MM tomosynthesis screening BI Accession Number(s): [id number] cc: Nikki James MD EXAMINATION: MM SCREENING [...] 04/15/24 1556 DD/ 1300 TD/TT: 04/05/24 1318 Dye Expert: Procedure Note Donotuseinterpreter, Image - 04/15/2024 [facility] [address] [place] [address] Mammography Report Signed Patient: Sameera Toussaint#: [id number] 6 : 1965Acct:[id number] Age/Sex: 58 / FADM Date: 04/05/24 Loc: HO.MAMMO Attending Dr: Nikki James MD Ordering Physician: Nikki James MDResults: 1N egative Date of Service: 04/05/24Follow Up: 1 Year From Orig inal Mammogram Procedure(s): MM tomosynthesis screening BI Accession Number(s): [id number] cc: Nikki James MD EXAMINATION: MM SCREENING [...] Michelle Connors DO 04/15/2024 03:56 PM EST RP Dictated By: Michelle Connors DO Signed By: <Electronically signed by Michelle Connors DO in OV> 04/15/24 1556 DD/ 1300 TD/TT: 04/05/24 1318 Dye Expert: Nikki James MD IMG BI PROCEDURES Final Re sult * Albumin, Random Urine W/Creatinine (02/12/2024 11:45 AM EDT) Creatinine, Urine 100.78 mg/dL [facility] Microalbumin Urine 7.0 mg/L [facility] Microalbum Creatinine Ratio Ur 6.9 <30 ug/mg cr [facility] Comment:Albumin/Creatinine R atio Reference Ranges: Normal: < 30 ug/mg creatinine Microalbuminuria: 30 - 300 ug/mg creatinineClinical Albuminuria: > 300 ug/mg creatinine Urine 02/12/2024 11:4 5 AM EDT 02/12/2024 1:10 PM EDT Nikki James MD LAB URINE ORDERABLES Final Result [facility] [address] [place] [phone] * HIV 1/2 ANTIGEN/ANTIBODY,FOURTH GENERATION W/RFL [...] purpose. For additional information please refer to http://education.Voicendo/faq/DLR950 (This link is being provided for informational/ educational purposes only.) The performance of this assay has not been clinically validated in patients less than 2 years old. 05/31/2021 1:02 PM EST Nikki James MD LAB BLOOD ORDERABLES Final Result Performing Organization Address [facility] Co de Phone Number [facility] Formerly [facility] [place] [address], * HPV E6/E7 RFLX ESTEE 16 18/45 (01/23/2020 2:02 PM EDT) HPV 16 RNA [facility] HPV 18/45 RNA [facility] HPV E6 E7 ADD [facility] HPV mRNA E6/E7 Not Detected Not Detected [facility] Comment: This test was performed using the APTIMA HPV Assay ([employer] This assay detects E6/E7 viral messenger RNA (mRNA) from 14 high-risk HPV types (16,18,31,33,35,39,45,51,52,56,58,59,66,68). The analytical performance characteristics of this assay have been determined by [employer]. The modifications have not been cleared or approved by the FDA. This assay has been validated pursuant to the CLIA regulations and is used for clinical purposes. THIS TEST WAS PERFORMED AT: [facility] ([facility]) [address] [place] [address] [address]LOOR,[place] [address] CASSIE VANCE MD 01/23/2020 2:02 PM EDT us Jessica Grace HISTORICAL/NON ORDERABLE LABS Fi nal Result Performing Organization Address [facility] Co de Phone Number [facility] [address] [place] [address], * Hm Colonoscopy (09/15/2017) Colonoscopy normal with Dr. Oliver us Historical Provider HEALTH MAINTENANCE Final Result * Pap Smear (12/26/2014 12:00 AM EDT) Swab us Historical Provider LAB CYTOLOGY ORDERABLES F inal Result IMAGING from Last 3 Months or Most Recently Relevant to Health Maintenance Insurance [facility] < [address] [place] [id number] Advance Directives Documents on File Type Date Recorded Patient Multimedia Authoring Specialist Expl anation Advance Directives and Livin g Will 07/17/2023 Health Care Proxy Care Teams Opthalmic Tech Relationship Specialty Start Date End Date Elmore, MD Nikki [address] [place] [address] PCP - General Family Medicine 04/24/18 Mary Rain, Kisha [address] [place] [address] Pharmacist Internal Medicine 01/26/23 Gerson Briggs [address] [place] [address] Pulmonary Disease 04/08/24 Babatunde Cornejo DO [address] [place] [address] Endocrinology 04/08/24 Delaney Cantu [address] [address] Dermatology 04/08/24 Uzair Ruiz MD [address] [place] [address] Gastroenterology 09/05/24 Dr. Bravo [facility] [address] [place] [address] Orthopaedic Surgery 05/15/24
--- OUTSIDE RECORDS SUMMARY | 2025-02-12 15:35 | XMS_ITS | Encounter Summary ---
Author Organization [facility] Address [address] [place] [address] [place] [address] Phone Care Team Providers Care Mounter Saxophones Name Role Phone Nikki James MD Primary Care Provi rio Reason for Visit * Reason Onset Date Comments alternatives to Ozempic 01/20/2025 alternat nelli to Ozempic Encounter Details Date Type Department Care Team ([facility] Contact Info) Description 01/20/2025 Telephone [facility] [address] [place] [address] Babatunde oCrnejo, DO [address] [place] [address] [email or web address] alternatives to Ozempic (alternatives to Ozempic) Social History Tobacco Use Types Packs/Day Years [...] on file Sexual Orientation Not on file documented as of this encounter Progress Notes * Zara Chan RN - 02/12/2025 9:27 AM EDT 3rd and final attempt to reach pt's daughter. No answer. LM to call back. Advised that we would not be calling again unless she calls back. * Chayo Carpenter RN - 01/23/2025 1:35 PM EDT Call placed to patient, no answer, left message to return call to nurse. * Penelope Augustin RN - 01/20/2025 3:04 PM EDT Message left for daughter to call office * Chayo Phan - 01/20/2025 2:46 PM EDT Patient's daughter, Tiburcio, returned call. Available 4:30pm or later today at [phone] * Chayo Ballard LPN - 01/20/2025 1:59 PM EDT Left message for pts daughter to return call * Sharon Gomez - 01/20/2025 1:16 PM EDT Patient's daughter calls to try to move up mom's scheduled apmt. W/Dr. Cornejo so she can discuss trying alternatives to Ozempic, as she thinks she is having vision issues from it. Nothing available sooner. Please contact patient to advise. documented in this encounter Plan of Treatment Upcoming Encounters Date Type Department Care Team (Late st Contact Info) Description 05/26/2025 11:30 AM EST Office Visit [facility] [address] [place] [address] Babatunde Cornejo DO [address] [place] [address] [email or web address] documented as of this encounter Visit Diagnoses Not on filedocumented in this encounter Care Teams Mounter Saxophones Relationship Specialty Start Date End Date [place], Nikki Vail MD [address] [place] [address] PCP - General Family Medicine 12/08/23 documented as of this encounter Additional Source Comments The information contained in this document represents components of the legal health record. It is not the complete legal health record.[facility]
--- OUTSIDE RECORDS SUMMARY | 2025-02-12 15:36 | XMS_ITS | Encounter Summary ---
Author Organization [employer] Address 75 [facility] 7t [place] [address] Care Team Providers Care B[place]mer Bottom Maker Name Role Phone Nikki James MD Primary Care Provider [phone] Mary Rain PharmD Unavailable Gerson Briggs Unavailable [phone] Clemente Babatunde Holley DO Unavailable [phone] Delaney Cantu Unavailable Uzair Ruiz MD Unavailable Reason for Visit * Reason Comments Pre-visit Planning SDOH screening was c ompleted on 10/16/2024 Encounter Details Date Type Department Care Team (Late st Contact Info) Description 02/12/2025 Patient Outreach [facility] [address] [place], [place] [phone] Nikki James MD [address] [place], [place] [phone] Pre-visit Planning (SDOH screening was completed on 10/16/2024) Social History Tobacco Use Types Packs/Day Years [...] as of this encounter Progress Notes * Mary Jane Canela - 02/12/2025 1:07 PM EDT ARPITA Inman placed successful outbound call to patient for pre-visit planning. Patient name and confirmed. Patient confirms appt date and time, and has transportation arrangements. Biggest concern for appointment at this time is requesting a referral rheumatology. Patient went to her trade mark attorney appointment and patient's BP was 90/50. Patient advised to bring to appointment a photo id and insurance card. Appropriate screenings completed in anticipation of appointment. documented in this encounter Plan of Treatment Upcoming Encounters Date Type Department Care Team (Late st Contact Info) Description 02/20/2025 9:15 AM EDT Office Visit [facility] [address] [place] [phone] Nikki James MD [address] [place] [address] 03/13/2025 1:00 PM EST Nurse Only [facility] [address] [place] [address] documented as of this encounter Goals Goal [...] documented as of this encounter Care Teams Bessemer Bottom Maker Relationship Specialty Start Date End Date Nikki James MD [address] [place] [address] PCP - General Family Medicine 04/24/18 Mary Rain, PharmD [address] [place] [address] Pharmacist Internal Medicine 01/26/23 Gerson Briggs [address] [place] [address] Pulmonary Disease 04/08/24 Babatunde Cornejo DO [address] [place] [address] Endocrinology 04/08/24 Delaney Cantu [address] [place] [address] Dermatology 04/08/24 Uzair Ruiz MD [address] [place] [address] Gastroenterology 09/05/24 Dr. Bravo [facility] [address] [place] [address] Orthopaedic Surgery 05/15/24 documented as of this encounter
--- OUTSIDE RECORDS SUMMARY | 2025-02-12 15:36 | XMS_ITS | Encounter Summary ---
Author Organization [employer] Address [address] [facility] [address] [place] [address] Care Team Providers Care Comb Machine Operator Name Role Phone Nikki James MD Primary Care Provider [phone] Mary Rain PharmD Unavailable Gerson Briggs Unavailable [phone] Clemente, Babatunde Babb DO Unavailable [phone] Delaney Cantu Unavailable Uzair Ruiz MD Unavailable Encounter Details Date Type Department Care Team (Late st Contact Info) Description 04/21/2022 Orders Only [facility] [address] [place] [address] [phone] Lisa Navarro RN Social History Tobacco Use [...] Description 02/20/2025 9:15 AM EDT Office Visit [facility] [address] [place] [address] [phone] Nikki James MD [address] [place], [place] [phone] 03/13/2025 1:00 PM EST Nurse Only [facility] [address] [place] [id number] documented as of this encounter Visit Diagnoses Not on filedocumented in this encounter Care Teams Comb Machine Operator Relationship Specialty Start Date End Date Nikki James MD [address] [place] [address] PCP - General Family Medicine 04/24/18 Mary Rain, Kisha [address] [place] [address] Pharmacist Internal Medicine 01/26/23 Gerson Briggs [address] [place] [address] Pulmonary Disease 04/08/24 Babatunde Cornejo DO [address] [place] [address] Endocrinology 04/08/24 Delaney Cantu [address] [address] Dermatology 04/08/24 Uzair Ruiz MD [address] [place] [address] Gastroenterology 09/05/24 Dr. Bravo [facility] [address] [place] [id number] Orthopaedic Surgery 05/15/24 documented as of this encounter
== END 2025-02-12 11:58 | disposition home or self-care (01) ==
LOC: HO.HPS 11:22
PROVIDERS: PCP Family Medicine; Visit Provider Hospitalist
DX: J45.50 Severe persistent asthma, uncomplicated (principal); K21.9 Gastro-esophageal reflux disease without esophagitis; L30.9 Dermatitis, unspecified
CPT/HCPCS: 99214

== ENCOUNTER → 2025-02-12 11:21 | Outpatient (BNVA) | payer OTHER, SELFPAY | PROVIDERS: PCP Family Medicine; Visit Provider Hospitalist | DX: J45.50 Severe persistent asthma, uncomplicated (principal); J44.9 Chronic obstructive pulmonary disease, unspecified; R74.8 Abnormal levels of other serum enzymes; L30.9 Dermatitis, unspecified; K21.9 Gastro-esophageal reflux disease without esophagitis | CPT/HCPCS: 99212 ==

== ENCOUNTER 2025-02-20 10:36 | Outpatient (REF) | payer OTHER, SELFPAY ==
--- OUTSIDE RECORDS SUMMARY | 2024-09-02 09:30 | XMS_ITS ---
Author Organization [facility] Address [address] [place] [address] Care Team Providers Care .Net Programmer Name Role Phone Erika REYNOSO, Nikki Primary Care Provider Vania agustínilaUzair Gould [phone] REASON FOR VISIT gerd,heartburn Encounters Encounter Location Date Provider Diagnosis [facility] [place] [address] [place], [place] [phone] 09/02/2024 Uzair Ruiz Hiatal hernia K44. 9 and Gastro-esophageal reflux disease without esophagitis K21.9 Assessments Encounter Date Diagnosis (ICD Code) Assessment Notes Treatment Notes Treatment Clinical Notes Section Notes 09/02/2024 Hiatal hernia (ICD-10 - K44.9) 09/02/2024 Gastro-esophagea l reflux disease without esophagitis (ICD-10 - K21.9) Plan Of Treatment No Information Progress Notes * Syed TOUSSAINTOB:1965 (59 yo F)Acc No.[id number]:09/02/2024 EGD/MAC Patient: Ruthie MCCANN Provider: Smita Ruiz MD :1965 A ge:59 Y S ex:Female Date:09/02/2024 Address:[address] [place] [address], [facility] Pcp:Nikki James MD Subjective: * Chief Complaints: [...] 09/02/2024 Generated for Gill garcia/Nahomy/Lamonteitting on: 1 09:28 AM EDT
--- OUTSIDE RECORDS SUMMARY | 2025-02-20 09:15 | XMS_ITS | Encounter Summary ---
Author Organization [employer] Address [address] [facility] [address] [place] [address] Care Team Providers Care Field Foreman Name Role Phone Nikki James MD Primary Care Provider [phone] Mary Rain PharmD Unavailable [phone] Gerson Briggs Unavailable [phone] Clemente Babatunde Holley DO Unavailable [phone] Delaney Cantu Unavailable Uzair Ruiz MD Unavailable Reason for Visit * Reason Comments [facility] - Office Visit Encounter Details Date Type Department Care Team (Late st Contact Info) Description 02/20/2025 9:15 AM EDT Office Visit [facility] [address] [place] [address] Nikki James MD [address] [place], [place] [phone] Type 2 diabetes mellitus without complication, with long-term current use of insulin (HCC) (Primary Dx); Other specified health status; Moderate persistent asthma without complication; B12 deficiency; Class 2 drug-induced obesity with serious comorbidity and body mass index (BMI) of 37.0 to 37.9 in adult; Transaminitis; Depression, recurrent (CMS/HCC); Primary hypertension; Hirsutism; Encounter for immunization; Vitamin D deficiency; Raynaud's phenomenon without gangrene; Arthralgia, unspecified joint Social History Tobacco Use Types Packs/Day Years [...] Date Recorded Patient Health Questionnaire-9 Score 10 02/20/2025 Patient Health Questionnaire-9 Score 10 02/20/2025 Last PHQ-9: Questionnaire Data Not on file 1 Housing Stability Answer Date Recorded What is [...] Date Recorded Patient Health Questionnaire-2 Score 2 02/20/2025 Internet Access Answer Date Recorded Internet Access Q1 Yes 10/16/2024 Internet Access Q2 Not on file 10/16/2024 Comments Unknown Sex and Gender Information Value Date Recorded Sex Assigned at Female 02/21/2022 10:15 AM EDT Legal Sex Female 10:15 AM EDT Gender Identity Female 02/21/2022 10:15 AM EDT Sexual Orientation Straight 02/21/2022 10 :15 AM EDT documented as of this encounter Last Filed Vital Signs Vital Sign Reading Time Taken Comments Blood Pressure 110/66 02/20/2025 9:39 AM EDT Pulse 86 02/20/2025 9:39 AM EDT Temperature 37 C (98.6 F) 02/20/2025 9:39 AM EDT Respiratory Rate 20 02/20/2025 9:39 AM EDT Oxygen Saturation 98% 02/20/2025 9:39 AM EDT Inhaled Oxygen Concentration - - Weight 82.7 kg (182 lb 6.4 oz) 02/20/2025 9:39 A M EDT Height 162.6 cm (5' 4 ) 02/20/2025 9:39 AM EDT Body Mass Index 31.31 02/20/2025 9:39 AM EDT documented in this encounter Functional Status * Over the past 2 weeks, how often have you been bothered by any of the following problems? Question Answer Date of Assessment Author Patient Health Questionnaire-2 Score 2 01/24 9:40 AM EDT Mary Jane Kim [place] * Little interest or pleasure in doing things Answer Date of Assessment Author Several days 02/20/2025 9:40 AM Britany Martinez [place] * Feeling down, depressed, or hopeless Answer Date of Assessment Author Several days 02/20/2025 9:40 AM Britany Martinez [place] * Trouble falling or staying asleep, or sleeping too much Answer Date of Assessment Author Not at all 02/20/2025 9:40 AM Britany Martinez [place] * Feeling tired or having little energy Answer Date of Assessment Author Several days 02/20/2025 9:40 AM Britany Martinez [place] * Poor appetite or overeating Answer Date of Assessment Author Several days 02/20/2025 9:40 AM Britany Martinez [place] * Feeling bad about yourself - or that you are a failure or have let yourself or your family down Answer Date of Assessment Author More than half the days 02/20/2025 9:40 AM EDT Mary Jane Medina MA * Trouble concentrating on things, such as reading the newspaper or watching television Answer Date of Assessment Author Nearly every day 02/20/2025 9:40 AM Balaji Martinez MA * Moving or speaking so slowly that other people could have noticed? Or the opposite - being so fidgety or restless that you have been moving around a lot more than usual. Answer Date of Assessment Author Several days 02/20/2025 9:40 AM Britany Martinez MA * Thoughts that you would be better off or hurting yourself in some way Answer Date of Assessment Author Not at all 02/20/2025 9:40 AM EDT Britany Kim MA * Patient Health Questionnaire-9 Score Answer Date of Assessment Author 10 02/20/2025 9:40 AM EDT Britany Kim MA documented as of this encounter Patient Instructions * Patient Instructions* Nikki James MD - 02/20/2025 9:15 AM EDT Llamar para schaefer papunicolou documented in this encounter Progress Notes * Nikki James MD - 02/20/2025 9:15 AM EDT Subjective Patient ID: Ruthie Toussaint is a 59 y.o. female with past medical history of hypertension, type 2 diabetes, GERD, headaches, obesity and subarachnoid hemorrhage who presents for comprehensive annual exam. Interim history: Last PCP visit 10/16/24 for chornic conditions Current concerns: Joint pain and stiffness - History of pain and stiffness in shoulders, hands, and ankles - Episodes severe enough to require bed rest for up to one week - Difficulty's lifting arms due to pain - Fingers and hands described as very cold and turning purple, sometimes worsening without cold exposure - Toes described as cramping and curling under - All joints affected Asthma - History of asthma - Reports good response to asthma injection Diabetes - History of diabetes - Using Freestyle device for glucose monitoring - Reports need for test strips Liver concerns - History of fatty liver Misc - Reports previous difficulty with continuity of care due to changes in specialists - Denies receiving weight loss injection despite insurance communication BMI Readings from Last 3 Encounters: 02/20/25 31.31 kg/m?? 10/16/24 32.24 kg/m?? 02/12/24 37.59 kg/m?? Wt Readings from Last 3 Encounters: 02/20/25 182 lb 6.4 oz (82.7 kg) 10/16/24 187 lb 12.8 oz (85.2 kg) 02/12/24 219 lb (99.3 kg) Review of Systems Constitutional: Negative for fever and unexpected weight change. Eyes: Blurred vision Respiratory: Negative for shortness of breath. Cardiovascular: Negative for chest pain. Gastrointestinal: Negative for abdominal pain. Genitourinary: Negative for difficulty urinating. Objective Visit Vitals BP 110/66 (BP Location: Left arm, Patient Position: Sitting, BP Cuff Size: Adult) Pulse 86 Temp 98.6 ??F (37 ??C) (Oral) Resp 20 Body mass index is 31.31 kg/m??. Physical Exam Constitutional: Appearance: Normal appearance. HENT: Head: Normocephalic. Right Ear: Tympanic membrane normal. Left Ear: Tympanic membrane normal. Mouth/Throat: Pharynx: Oropharynx is clear. Eyes: Pupils: Pupils are equal, round, and reactive to light. Cardiovascular: Rate and Rhythm: Normal rate and regular rhythm. Pulses: Dorsalis pedis pulses are 2+ on the right side and 2+ on the left side. Heart sounds: Normal heart sounds. Pulmonary: Effort: Pulmonary effort is normal. Breath sounds: Normal breath sounds. Abdominal: General: Abdomen is flat. Palpations: There is no mass. Tenderness: There is no abdominal tenderness. Musculoskeletal: General: Normal range of motion. Cervical back: Normal range of motion and neck supple. Right foot: No deformity or Charcot foot. Left foot: No deformity or Charcot foot. Feet: Right foot: Protective Sensation: 5 sites tested. 5 sites sensed. Skin integrity: Skin integrity normal. Toenail Condition: Right toenails are normal. Left foot: Protective Sensation: 5 sites tested. 5 sites sensed. Skin integrity: Skin integrity normal. Toenail Condition: Left toenails are normal. Lymphadenopathy: Cervical: No cervical adenopathy. Skin: General: Skin is warm and dry. Neurological: General: No focal deficit present. Mental Status: She is alert. Psychiatric: Behavior: Behavior normal. Assessment & Plan Type 2 diabetes mellitus without complication, with long-term current use of insulin (HCC) Diabetes is controlled. Follows with Endocrinology, Dr. Cornejo Lab Results Component Value Date HGBA1C 6.4 11/06/2024 HGBA1C 6.4 (H) 11/04/2024 HGBA1C 6.1 (A) 10/16/2024 Lab Results Component Value Date CREATININE 0.79 02/12/2024 EGFR >60 02/12/2024 MICROALBCREU 6.9 02/12/2024 MICROALBCREU 4.5 01/16/2023 LDLCHOLCAL 86 02/12/2024 -Justus/Arb: lisinopril 20mg -Statin therapy: atorvastatin 40mg -Diabetic eye exam: referred to [facility] 10/16/24 -Diabetic foot exam: [...] increase for 4 weeks. Treatment doses considered romi 1.7 or 2.4 mg group home. -follow-up in 2 months. Orders: POCT glucose manually resulted POCT glycosylated hemoglobin (Hgb A1c) Albumin, Random Urine W/Creatinine; Future Hepatic Function Panel; Future Lipid Panel, Standard; Future Basic Metabolic Panel; Future Other specified health status -next physical exam due after 02/20/26 -followed by Dr. García Wei of [facility] -dental home is [facility] -filed healthcare proxy on 07/17/2023 Moderate persistent asthma without complication Asthma controlled. Significant eosinophilia chronically on labs. - Continue with pulmonology with Dr. Briggs, note from 02/11/25 reviewed -stopped Dupixent due side effects -continue Breztri (budesonide ICS, glycopyrrolate anticholinergic, formoterol long acting beta agonist )BID started 10/09/23 -continue Fasenra (benralizumab Interleukin 5 inhibitor and monoclonal antibody) started 06/12/24 -ALEJANDRA as needed -Continue Singulair -reflux diet , F/U pulmonology 8-10 months B12 deficiency Lab Results Component Value Date VITB12 <148 (L) 10/16/2024 FOLATE 11.5 10/16/2024 -low on oral B12 -injectable B12 1000mcg weekly x 4 weeks then monthly started 10/18/24 Orders: Vitamin B12/Folate, Serum Panel; Future Class 2 drug-induced obesity with serious comorbidity and body mass index (BMI) of 37.0 to 37.9 in adult -baseline weight 221 lbs -Ozempic prescribed by endocrinology -given BMI >30kg/m2 or >27kg/m2 with one or more weight related comorbidities pt is a candidate for glucagon-like peptide-1s (GLP-1) to assist with weight loss and diabetes management BMI Readings from Last 3 Encounters: 02/20/25 31.31 kg/m?? 10/16/24 32.24 kg/m?? 02/12/24 37.59 kg/m?? Wt Readings from Last 3 Encounters: 02/20/25 182 lb 6.4 oz (82.7 kg) 10/16/24 187 lb 12.8 oz (85.2 kg) 02/12/24 219 lb (99.3 kg) -to be used in combination with reduced calorie diet and increased physical activity -ozempic started 02/12/24 -10/16/24 reports doing well, currently on 2 mg. Has had improvement in secondary outcomes with weight loss medication use. Understands that weight loss medications must be used as part of a comprehensive lifestyle plan that incorporates daily exercise, adequate protein intake, decreased soda and sugary beverage consumption, decreased caloric intake. Transaminitis Diagnosis: Likely metabolic dysfunction-associated steatohepatitis. Labs imporved. Lab Results Component Value Date TOTALBILIRUB 0.7 10/16/2024 AST 42 (H) 10/16/2024 ALT 31 10/16/2024 ALT 25 12/16/2021 ALP 68 10/16/2024 HEPCAB Nonreactive 10/16/2024 HEPAIGM Nonreactive 10/16/2024 HEPBSURFAB GRAYZONE 10/16/2024 HEPBCOREAB Nonreactive 10/16/2024 HEPBSURFACAG Negative 10/16/2024 ANASCRE POSITIVE (A) 10/16/2024 ANATITER 1:40 (A) 10/16/2024 MITOCHAB NEGATIVE 10/16/2024 SMAB 46 (A) 10/16/2024 CERULOPLASMI 24 10/16/2024 FERRITIN 44 10/16/2024 AFP 2.7 10/16/2024 Ultrasound: 03/03/24 1. There is generalized increase in hepatic echotexture, consistent with fattyinfiltration or hepatocellular disease. Please correlate clinically. No [...] 02/13/24 -ordered repeat AST + LFT 10/16/24 Depression, recurrent (CMS/HCC) Primary hypertension Hirsutism Orders: Testosterone, Total, males (Adult), IA; Future Encounter for immunization Orders: HEPATITIS A VACCINE ADULT 19 yrs + Vitamin D deficiency Orders: cholecalciferol (Vitamin D-3) 50 MCG (2000 UT) capsule; Take 1 capsule (50 mcg) by mouth Once per day. Raynaud's phenomenon without gangrene Referral to rheumatology place placed month. Pt to call. Arthralgia, unspecified joint Follow up in about 6 months (around 08/21/2025) for diabetes, check statin. documented in this encounter Miscellaneous Notes * Assessment & Plan Note - Nikki James MD - 02/20/2025 9:15 AM EDT Associated Problem(s): Other specified health status -next physical exam due after 02/20/26 -followed by Dr. García Wei of [facility] -dental home is [facility] -filed healthcare proxy on 07/17/2023 * Assessment & Plan Note - Nikki James MD - 02/20/2025 9:15 AM EDT Associated Problem(s): DM w/o complication type II (HCC) Diabetes is controlled. Follows with Endocrinology, Dr. Cornejo Lab Results Component Value Date HGBA1C 6.4 11/06/2024 HGBA1C 6.4 (H) 11/04/2024 HGBA1C 6.1 (A) 10/16/2024 Lab Results Component Value Date CREATININE 0.79 02/12/2024 EGFR >60 02/12/2024 MICROALBCREU 6.9 02/12/2024 MICROALBCREU 4.5 01/16/2023 LDLCHOLCAL 86 02/12/2024 -Justus/Arb: lisinopril 20mg -Statin therapy: atorvastatin 40mg -Diabetic eye exam: referred to [facility] 10/16/24 -Diabetic foot exam: [...] calorie diet and increased physical activity -For Werobelvy (semaglutide) Start 0.25mg subcutaneously qweek 1-4 weeks, increase to 0.5mg subcutaneously qweek for weeks 5-8, increase to 1mg subcutaneously qweek for weeks 9-1, Increase to 1.7 mg subcutaneously q week weeks 13-16, increase tp 2.4mg subcutaneously q week If dose is not tolerated consider delaying dose increase for 4 weeks. Treatment doses considered romi 1.7 or 2.4 mg group home. -follow-up in 2 months. Orders: POCT glucose manually resulted POCT glycosylated hemoglobin (Hgb A1c) Albumin, Random Urine W/Creatinine; Future Hepatic Function Panel; Future Lipid Panel, Standard; Future Basic Metabolic Panel; Future * Assessment & Plan Note - Nikki James MD - 02/20/2025 9:15 AM EDT Associated Problem(s): Moderate persistent asthma without complication Asthma controlled. Significant eosinophilia chronically on labs. - Continue with pulmonology with Dr. Briggs, note from 02/11/25 reviewed -stopped Dupixent due side effects -continue Breztri (budesonide ICS, glycopyrrolate anticholinergic, formoterol long acting beta agonist )BID started 10/09/23 -continue Fasenra (benralizumab Interleukin 5 inhibitor and monoclonal antibody) started 06/12/24 -ALEJANDRA as needed -Continue Singulair -reflux diet , F/U pulmonology 8-10 months * Assessment & Plan Note - Nikki James MD - 02/20/2025 9:15 AM EDT Associated Problem(s): B12 deficiency Lab Results Component Value Date VITB12 <148 (L) 10/16/2024 FOLATE 11.5 10/16/2024 -low on oral B12 -injectable B12 1000mcg weekly x 4 weeks then monthly started 10/18/24 Orders: Vitamin B12/Folate, Serum Panel; Future * Assessment & Plan Note - Nikki James MD - 02/20/2025 9:15 AM EDT Associated Problem(s): Class 2 drug-induced obesity with body mass index (BMI) of 37.0 to 37.9 in adult -baseline weight 221 lbs -Ozempic prescribed by endocrinology -given BMI >30kg/m2 or >27kg/m2 with one or more weight related comorbidities pt is a candidate for glucagon-like peptide-1s (GLP-1) to assist with weight loss and diabetes management BMI Readings from Last 3 Encounters: 02/20/25 31.31 kg/m?? 10/16/24 32.24 kg/m?? 02/12/24 37.59 kg/m?? Wt Readings from Last 3 Encounters: 02/20/25 182 lb 6.4 oz (82.7 kg) 10/16/24 187 lb 12.8 oz (85.2 kg) 02/12/24 219 lb (99.3 kg) -to be used in combination with reduced calorie diet and increased physical activity -ozempic started 02/12/24 -10/16/24 reports doing well, currently on 2 mg. Has had improvement in secondary outcomes with weight loss medication use. Understands that weight loss medications must be used as part of a comprehensive lifestyle plan that incorporates daily exercise, adequate protein intake, decreased soda and sugary beverage consumption, decreased caloric intake. * Assessment & Plan Note - Nikki James MD - 02/20/2025 9:15 AM EDT Associated Problem(s): Transaminitis Diagnosis: Likely metabolic dysfunction-associated steatohepatitis. Labs imporved. Lab Results Component Value Date TOTALBILIRUB 0.7 10/16/2024 AST 42 (H) 10/16/2024 ALT 31 10/16/2024 ALT 25 12/16/2021 ALP 68 10/16/2024 HEPCAB Nonreactive 10/16/2024 HEPAIGM Nonreactive 10/16/2024 HEPBSURFAB GRAYZONE 10/16/2024 HEPBCOREAB Nonreactive 10/16/2024 HEPBSURFACAG Negative 10/16/2024 ANASCRE POSITIVE (A) 10/16/2024 ANATITER 1:40 (A) 10/16/2024 MITOCHAB NEGATIVE 10/16/2024 SMAB 46 (A) 10/16/2024 CERULOPLASMI 24 10/16/2024 FERRITIN 44 10/16/2024 AFP 2.7 10/16/2024 Ultrasound: 03/03/24 1. There is generalized increase in hepatic echotexture, consistent with fattyinfiltration or hepatocellular disease. Please correlate clinically. No [...] 02/13/24 -ordered repeat AST + LFT 10/16/24 * Assessment & Plan Note - Nikki James MD - 02/20/2025 9:15 AM EDT Associated Problem(s): Depression, recurrent (CMS/HCC) * Assessment & Plan Note - Nikki James MD - 02/20/2025 9:15 AM EDT Associated Problem(s): Hypertension documented in this encounter Plan of Treatment Upcoming Encounters Date Type Department Care Team (Late st Contact Info) Description 03/13/2025 1:00 PM EST Nurse Only [facility] [address] [place] [address] Scheduled Orders Name Type Priority Associated Diagnoses Orde r Schedule POCT glucose manually resulted Point of Care Testing Routine Type 2 diabetes mellitus without complication, with long-term current use of insulin (HCC) Ordered: 02/20/2025 POCT glycosylated hemoglobin (Hgb A1c) Point of Care Testing Routine Type 2 diabetes mellitus without complication, with long-term current use of insulin (HCC) Ordered: 02/20/2025 Hepatic Function Panel Lab Routine Type 2 diabetes mellitus without complication, with long-term current use of insulin (HCC) Expected: 02/20/2025 (Approximate), Expires: 02/20/2026 Lipid Panel, Standard Lab Routine Type 2 diabetes mellitus without complication, with long-term current use of insulin (HCC) Expected: 02/20/2025 (Approximate), Expires: 02/20/2026 Basic Metabolic Panel Lab Routine Type 2 diabetes mellitus without complication, with long-term current use of insulin (HCC) Expected: 02/20/2025 (Approximate), Expires: 02/20/2026 Vitamin B12/Folate, Serum Panel Lab Routine B12 deficiency Expected: 02/20/2025, Expires: 02/20/2026 Testosterone, Total, males (Adult), IA Lab Routine Hirsutism Expected: 02/20/2025, Expires: 02/20/2026 documented as of this encounter Goals Goal Patient Goal Type Associated Problems Recent Progress Patient-Stated? Author Blood Pressure < 140/90 Blood Pressure 110/66(2024 9:39 AM EDT) No Mary Forbes PharmD Hemoglobin A1c < 7 Result Component 6.4( 12:00 AM EDT) No Mary Forbes PharmD documented as of this encounter Procedures Procedure Name Priority Date/Time Associated Diagnosis Comments ALBUMIN, RANDOM URINE W/CREATININE Routine 02/20/2025 10:41 AM EDT Type 2 diabetes mellitus without complication, with long-term current use of insulin ([facility]) documented in this encounter Results * Albumin, Random Urine W/Creatinine (02/20/2025 10:41 AM EDT) Creatinine, Urine 109.20 mg/dL [facility] Microalbumin Urine 5.0 mg/L [facility] Microalbum Creatinine Ratio Ur 4.5 <30 ug/mg cr [facility] Comment:Albumin/Creatinine R atio Reference Ranges: Normal: < 30 ug/mg creatinine Microalbuminuria: 30 - 300 ug/mg creatinineClinical Albuminuria: > 300 ug/mg creatinine Urine 02/20/2025 10:4 1 AM EDT 02/20/2025 11:10 AM EDT us Nikki James MD LAB URINE ORDERABLES Final Result [facility] [address] [place] [address] [phone] documented in this encounter Visit Diagnoses Diagnosis Type 2 diabetes mellitus without complication, with long-term current use of insulin ([facility])- Primary Other specified health status Moderate persistent asthma without complication B12 deficiency Class 2 drug-induced obesity with serious comorbidity and body mass index (BMI) of 37.0 to 37.9 in adult Transaminitis Nonspecific elevation of levels of transaminase or lactic acid dehydrogenase (LDH) Depression, recurrent (CMS/HCC) Major depressive disorder, recurrent episode, unspecified Primary hypertension Unspecified essential hypertension Hirsutism Encounter for immunization Vitamin D deficiency Raynaud's phenomenon without gangrene Arthralgia, unspecified joint documented in this encounter Additional Health Concerns Assessment Noted Time PHQ-9 Depression Total Score: 10 025 9:40 AM EDT documented as of this encounter Care Teams Field Foreman Relationship Specialty Start Date End Date Nikki James MD [address] [place] [address] PCP - General Family Medicine 04/24/18 Mary Rain PharmD [address] [place] [address] Pharmacist Internal Medicine 01/26/23 Gerson Briggs [address] [place] [address] Pulmonary Disease 04/08/24 Babatunde Cornejo DO [address] [place] [address] Endocrinology 04/08/24 Delaney Cantu [address] [address] Dermatology 04/08/24 Uzair Ruiz MD [address] [place] [address] Gastroenterology 09/05/24 Dr. Bravo [facility] [address] [place] [phone] Orthopaedic Surgery 05/15/24 documented as of this encounter
[2025-02-20 12:08] LABS: Microalbum/Creatinine Ratio Ur 4.5 ug/mg cr (<30)
--- OUTSIDE RECORDS SUMMARY | 2025-02-20 12:54 | XMS_ITS | Data Portability ---
Author Organization [place] - [facility], [facility] Address [address] [place] [address] Care Team Providers Care Telephone Diaphragm Assembler Name Role Phone JOHN, INÉS Primary Care [...] Kincaid Taping at your discretion. 2024 025 [facility], [address] [place], [address], 5 10:33:14 physical therapist referral - Evaluate & Rx Lumbar Stabilizati on Program 2023 024 cstamand Not available 4 10:06:55 Procedures None recorded. Surgeries None recorded. Imaging None recorded. Medication Orders None recorded. Patient TargetsNo targets recorded. Patient InstructionsNo instructions recorded. Reason for Referral Physical Therapist Referral for Lumbar radiculopathy Evaluate & RxLumbar Stabilization Program Referring Physician: David Florentino, Orthopedic Surgery, [id number] Encounter Date: 11/23/2023 Physical Therapist Referral for History of arthroscopy of knee joint VMO Strengthening, Hip Abductor, Glute Med Strengthening, Quad & Hamstring Stretching, Patella Mobilization, Kincaid Taping at your discretion. Referring Physician: Dominik Oliver, Orthopedic Surgery, Encounter Date: 05/14/2024 Problems Name Problem SNOMED Code Status Onset Date Resolution Date Notes Provider Name and Address Organization Details Recorded Time Lumbar radiculopat hy 807652978 Active 2023 ALIA VALLEJOBROOK [facility] 4 13:33:58 Tear of lateral meniscus of knee 993593249 Active 2023 THONG GREWAL [facility] 4 12:27:25 Acute tear of lateral meniscus of right knee 6516146895915 9100 Active 2023 THONG GREWAL [facility] 4 12:29:09 Problem Notes None recorded. Procedures Surgical History Date Name Laterality Status Provider Name and Address Organization Details Recorded Time 11/23/2023 Sports Knee 4&1 completed David Florentino MD [address] [place] [address] [address], [place], [address], [facility] 11/23/2023 13:41:58 Imaging Results None recorded. Procedure Notes None recorded. Medical Equipment None Reported. Allergies Allergen ID Allergen Name Allergen Category Reaction Reaction Severity Criticality Documentation Date Start Date Code Code System Note Provider Name and Address Organization Details Recorded Time 307501 amoxicill in medicatio n Not available Not available Not available 11/23/2023 723 RxNorm [facility] 13:26:38 910497 Product containin g penicilli n (product) medicatio n Not available Not available Not available 11/23/2023 47564 8001 SNOMED [facility] 13:26:44 377735 Iodinated contrast media (substanc e) medicatio n Not available Not available Not available 11/23/2023 46244 2003 [facility]ED [facility] 13:26:51 854804 morphine medicatio n Not available Not available Not available 11/23/2023 7052 RxNorm [facility] 13:27:02 Medications Name Sig Start Date Stop [...] Updated DateTime 05/14/2024 162.56 cm 38.1 kg/m2 841367.51 g 98 [degF] Dominik Oliver PA-C [address], [address] , [place] [facility] 05/14/2024 15:51:10 Date Recorded Body height Body mass index (BMI) Body weight Provider Name and Address Organization Details Last Updated DateTime 11/23/2023 162.56 cm 38.1 kg/m2 047089.51 g ALIA JONES [facility] 11/23/2023 13:26:31 Date Recorded Body height Body mass index (BMI) Body weight Provider Name and Address Organization Details Last Updated DateTime 02/29/2024 162.56 cm 38.1 kg/m2 007007.51 g THONG CARMINA [facility] 02/29/2024 15:27:30 Social History None recorded. Functional Status None recorded. Mental Status None recorded. Family History Nothing Reported. Medical History Condition Response Diabetes Y Stroke Y Hypertension Y Asthma Y Cholesterol Y Gynecological HistoryNo gynecological history recorded. Obstetrics History GPAL:G 0 P 0 0 0 0 Past Encounters Encounter ID Performer Location Encounter Start Date Encounter Closed Date Diagnosis/Indication Diagnosis SNOMED-CT Code Diagnosis ICD10 Code Diagnosis IMO Codes Diagnosis Note [id number] MD [address] [facility] 2[address] [place] [address] 11/23/2023 13:09:21 12/22/2023 10:06:54 Lumbar radiculopathy 347418792 M54.16 Tear of la teral meniscus of knee 014427823 S83.281D [id number] MD [address] [facility] [address] [facility] [address] [place] [address] 02/29/2024 15:25:44 04/01/2024 13:26:13 Tear of lateral meniscus of knee 371399622 S83.281D [id number] TRACI Benoit - [facility] [address] [facility] [address] [place] [address] 05/14/2024 15:45:41 05/31/2024 09:38:28 History of arthroscopy of knee joint 365655179 Z98.890 [id number] Health Concerns Section Related Observation LastModified by Organization Detai ls LastModified Time None Recorded Concern Status LastModified by Organization Details LastModified Time None Recorded Advance Directives Directive None Recorded Payers Insurance Date Sequence Insurance Name Policy Number Policy Hernández Covered Member ID Hernández Member ID Guarantor Name 05/31/2024 1 [facility] - DOS ON OR AFTER 2022 - ONE CARE (MEDICARE REPLACEMENT/ADV ANTAGE - HMO) Ruthie Toussaint [id number] Ruthie Toussaint Notes Date Note Type Note Provider Name and Address Organization Details Recorded Time 4 text/htm l HPI: Patient is seen today for follow-up evaluation of their right knee MRI. They have been modifying their [...] by me and is located in the patient s chart. PHYSICAL EXAMINATION: The patient is well appearing and in no apparent distress. Alert and oriented x3. Gait is symmetric. EXAM:HEENT is unremarkableHeart regular rate and rhythm without murmurs rubs gallopsAbdomen soft nontender nondistended positive bowel sounds.Lungs are clear bilaterally without rales rhonchi or wheezesPeripheral, vascular, lymphatic examination, skin, neurological, coordination, reflexes, sensation are within normal limits. right knee ROM is full, stability intact both anterior, posterior, and varus/valgus stress at both 0 and 30 degrees of flexion. Medial meniscal tenderness. Positive Ginger's maneuver. No crepitus,no effusion, 5/5 strength. Positive straight leg raise on the right with sciatic nerve compression symptoms. left knee ROM is full, stability intact both [...] first. Follow-up 3 months. David Florentino MD [address] [facility] [address], [place], [address], [facility] - [facility] 11/23/2023 13:51:28 4 text/htm l HPI: Patient is seen today for follow-up evaluation of their right knee MRI. They have been modifying their [...] by me and is located in the patient s chart. PHYSICAL EXAMINATION: The patient is well appearing and in no apparent distress. Alert and oriented x3. Gait is symmetric. EXAM:HEENT is unremarkableHeart regular rate and rhythm without murmurs rubs gallopsAbdomen soft nontender nondistended positive bowel sounds.Lungs are clear bilaterally without rales rhonchi or wheezesPeripheral, vascular, lymphatic examination, skin, neurological, coordination, reflexes, sensation are within normal limits. right knee ROM is full, stability intact both anterior, posterior, and varus/valgus stress at both 0 and 30 degrees of flexion. Lateral meniscal tenderness. Positive Lateral Ginger's maneuver. 1+ patellofemoral crepitus,no effusion, 5/5 strength. Positive straight leg raise on the right with sciatic nerve compression symptoms. left knee ROM is full, stability intact both [...] the next 30 days. David Florentino MD [address] [place] [address] [address], [place], [address], [facility] 02/29/2024 16:15:09 5 text/htm l I am [...] patient remains symptomatic. Dominik Oliver PA-C [address] [facility] [address], [place], [address], [facility] - [facility] 05/14/2024 16:02:41 OBGyn Episode No OBEpisode recorded.
--- OUTSIDE RECORDS SUMMARY | 2025-02-20 12:55 | XMS_ITS | Encounter Summary ---
Author Organization [employer] Address [address] [facility] 7t [place] [address] Care Team Providers Care Bus Steward Name Role Phone PutnamNikki melgar MD Primary Care Provider [phone] Mary Rain PharmD Unavailable [phone] Gerson Briggs Unavailable [phone] Babatunde Cornejo DO Unavailable [phone] Delaney Cantu Unavailable Uzair Ruiz MD Unavailable Reason for Visit * Reason Comments Med Refill Encounter Details Date Type Department Care Team (Late st Contact Info) Description 04/25/2023 Refill [facility] [address] [place] [address] Pauline Berger MD [address] [place], [place] [phone] Social History Tobacco Use Types Packs/Day Years [...] Description 03/13/2025 1:00 PM EST Nurse Only [facility] [address] [place] [address] documented as of this encounter Goals Goal Patient Goal Type Associated Problems Recent Progress Patient-Stated? Author Blood Pressure < 140/90 Blood Pressure 110/66(2024 9:39 AM EDT) No Mary Forbes, PharmTacho Hemoglobin A1c < 7 Result Component 6.4( 12:00 AM EDT) No Mary Forbes PharmD documented as of this encounter Visit Diagnoses Not on filedocumented in this encounter Additional Health Concerns Assessment Noted Time PHQ-9 Depression Total Score: 10 023 11:39 AM EDT documented as of this encounter Care Teams Bus Steward Relationship Specialty Start Date End Date Nikki James MD [address] [place] [address] PCP - General Family Medicine 04/24/18 Mary Rain, ElishaD [address] [place] [address] Pharmacist Internal Medicine 01/26/23 Gerson Briggs [address] [place] [address] [place] [address] Pulmonary Disease 04/08/24 Babatunde Cornejo DO [address] [place] [address] Endocrinology 04/08/24 Delaney Cantu [address] [address] Dermatology 04/08/24 Uzair Ruiz MD [address] [place] [address] Gastroenterology 09/05/24 Dr. Bravo [facility] 300 [facility] [address] Orthopaedic Surgery 05/15/24 documented as of this encounter
--- OUTSIDE RECORDS SUMMARY | 2025-02-20 12:55 | XMS_ITS | Encounter Summary ---
Author Organization [employer] Address 75 [facility] 7t [place] [address] Care Team Providers Care Value Analyst Name Role Phone iNkki James MD Primary Care Provider [phone] Mary Rain PharmD Unavailable [phone] Gerson Briggs Unavailable [phone] Babatunde Cornejo DO Unavailable [phone] Delaney Cantu Unavailable Uzair Ruiz MD Unavailable Encounter Details Date Type Department Care Team (Late st Contact Info) Description 10/21/2023 Orders Only [facility] [address] [place], [place] [phone] Nikki James MD [address] [place], [place] [phone] Social History Tobacco Use Types Packs/Day Years [...] Description 03/13/2025 1:00 PM EST Nurse Only [facility] [address] [place] [address] documented as of this encounter Goals Goal Patient Goal Type Associated Problems Recent Progress Patient-Stated? Author Blood Pressure < 140/90 Blood Pressure 110/66(2024 9:39 AM EDT) No Mary Forbes, PharmD Hemoglobin A1c < 7 Result Component 6.4( 12:00 AM EDT) No Mary Forbes, PharmD documented as of this encounter Visit Diagnoses Not on filedocumented in this encounter Additional Health Concerns Assessment Noted Time PHQ-9 Depression Total Score: 10 023 11:39 AM EDT documented as of this encounter Care Teams Value Analyst Relationship Specialty Start Date End Date Nikki James MD [address] [place] [address] PCP - General Family Medicine 04/24/18 Mary Rain, PharmD [address] [place] [address] Pharmacist Internal Medicine 01/26/23 Gerson Briggs [address] [place] [address] Pulmonary Disease 04/08/24 Babatunde Cornejo DO [address] [place] [address] Endocrinology 04/08/24 Delaney Cantu 1176 [facility] 1ST [place] [address] Dermatology 04/08/24 Uzair Ruiz MD [address] [place] [address] [address] [place] [address] Gastroenterology 09/05/24 Dr. Bravo [facility] [address] [place] [address] Orthopaedic Surgery 05/15/24 documented as of this encounter
--- OUTSIDE RECORDS SUMMARY | 2025-02-20 12:55 | XMS_ITS | Encounter Summary ---
Author Organization [employer] Address 75 [facility] 7t [place] [address] Care Team Providers Care Communication Arts Lecturer Name Role Phone Nikki James MD Primary Care Provider [phone] Mary Rain PharmD Unavailable Gerson Briggs Unavailable [phone] Babatunde Cornejo DO Unavailable [phone] Delaney Cantu Unavailable Uzair Ruiz MD Unavailable Encounter Details Date Type Department Care Team (Late st Contact Info) Description 11/10/[address] [facility] [address] [place], [place] [phone] Lisbeth Taylor LPN Social History Tobacco Use [...] Description 03/13/2025 1:00 PM EST Nurse Only [facility] [address] [place], [place] [phone] documented as of this encounter Visit Diagnoses Not on filedocumented in this encounter Care Teams Communication Arts Lecturer Relationship Specialty Start Date End Date Nikki James MD [address] [place], [place] [phone] PCP - General Family Medicine 04/24/18 Mary Rain, Kisha [address] [place] [address] Pharmacist Internal Medicine 01/26/23 Gerson Briggs 5 [place] [address] Pulmonary Disease 04/08/24 Babatunde Cornejo DO 22 [place] [address] Endocrinology 04/08/24 Delaney Cantu [address] [place] [address] Dermatology 04/08/24 Uzair Ruiz MD [address] [place] [address] Gastroenterology 09/05/24 Dr. Bravo [facility] [address] [place] [address] Orthopaedic Surgery 05/15/24 documented as of this encounter
--- OUTSIDE RECORDS SUMMARY | 2025-02-20 12:55 | XMS_ITS | Encounter Summary ---
Author Organization [employer] Address 75 [facility] 7t [place] [address] Care Team Providers Care Air Technician Name Role Phone Nikki James MD Primary Care Provider [phone] Mary Rain PharmD Unavailable Gerson Briggs Unavailable [phone] Clemente Babatunde Holley DO Unavailable [phone] Delaney Cantu Unavailable Uzair Ruiz MD Unavailable Reason for Visit * Reason Comments Med Refill Encounter Details Date Type Department Care Team (Late st Contact Info) Description 06/24/[address] [facility] [address] [place], [place] [phone] Nikki James MD [address] [place], [place] [phone] Type 2 diabetes mellitus without complication, without long-term current use of insulin ([facility]) Social History Tobacco Use Types Packs/Day [...] 03/13/2025 1:00 PM EST Nurse Only [facility] [address] [place] [address] documented as of this encounter Goals Goal Patient Goal Type Associated Problems Recent Progress Patient-Stated? Author Blood Pressure < 140/90 Blood Pressure 110/66(2024 9:39 AM EDT) No Dawoods-Mary Mcadams, PharmD Hemoglobin A1c < 7 Result Component 6.4( 12:00 AM EDT) No Dawoods-GambMary ribeiro, PharmD documented as of this encounter Visit Diagnoses Diagnosis Type 2 diabetes mellitus without complication, without long-term current use of insulin (HCC) documented in this encounter Additional Health Concerns Assessment Noted Time PHQ-9 Depression Total Score: 12 024 10:49 AM EDT documented as of this encounter Care Teams Air Technician Relationship Specialty Start Date End Date Nikki James MD [address] [place] [address] PCP - General Family Medicine 04/24/18 Mary Rain PharmD [address] [place] [address] Pharmacist Internal Medicine 01/26/23 Gerson Briggs [address] [place] [address] Pulmonary Disease 04/08/24 Babatunde Cornejo DO [address] [place] [address] Endocrinology 04/08/24 Delaney Cantu [address] [place] [address] Dermatology 04/08/24 Uzair Ruiz MD [address] [place] [address] Gastroenterology 09/05/[address] [facility] Orth[facility] [address] [place] [address] Orthopaedic Surgery 05/15/24 documented as of this encounter
--- OUTSIDE RECORDS SUMMARY | 2025-02-20 12:55 | XMS_ITS | Clinical Summary ---
Author Organization [facility] Address [address] [facility] [address] [place] [address] Phone Care Team Providers Care Can Tester Name Role Phone Nikki James MD Primary [...] Type Department Care Team Description 01/20/2025 Telephone [facility] [address] [place] [address] Babatunde Cornejo, DO alternatives to Ozempic (alternatives to Ozempic) 01/20/2025 Telephone [facility] [address] [place] [address] Babatunde Cornejo, DO Medication Refill (Jardiance refill) 12/21/2024 Refill [facility] [address] [place] [address] Babatunde Cornejo, DO Medication Refill from Last 3 Months [...] 11:30 AM EST Office Visit [facility] [address] [place] [address] [phone] Babatunde Cornejo DO [address] [place] [address] [email or web address] Health Maintenance Due Date Last Done Comments [...] INFLUENZA VACCINE (#1) 2024 COVID-19 VACCINE ( - season) 2024 MAMMOGRAM 02/23/2025 02/23/2023 HEMOGLOBIN A1C [...] HEMOGLOBIN A1C 6.4(H) 4.3 - 5.8 % [facility] Blood 11/04/2024 2:51 PM EDT 11/04/2024 2:58 PM EDT Babatunde Cornejo DO LAB BLOOD ORDERABLES Final Resul t [facility] [address] [place] [address] * (ABNORMAL) Lipid panel (11/04/2024 2:51 PM EDT) HDL 55 mg/dL [facility] Comment: Interpretation <40 mg/dL: Low HDL cholesterol (major risk factor for CHD) Greater than or equal to 60 mg/dL: High HDL cholesterol ( negative risk factor for CHD) HDL - cholesterol is affected by a number of factors, e.g. smoking, excerise, hormones, sex and age. CHOLESTEROL 160 0 - 240 mg/dL [facility] TRIGLYCERIDES 84 30 - 160 mg/dL [facility] LDL 88 50 - 129 mg/dL [facility] Comment: LDL levels in terms of risk for coronary heart disease: <100 mg/dL: Optimal 100-129 mg/dL: Near or above optimal 130-159 mg/dL: Borderline high 160-189 mg/dL: High >190 mg/dL: Very High CARDIAC RISK RATIO 2.9(L) 3.3 - 4.4 C [facility] Blood 11/04/2024 2:51 PM EDT 11/04/2024 2:58 PM EDT Babatunde Cornejo DO LAB BLOOD ORDERABLES Final Resul t [facility] [address] [place] [address] from Last 3 Months or Most Recently Relevant to Health Maintenance Insurance MEDICARE PART A & B [facility] ONE CARE MEDICARE REPLACEMENT MEDICARE PART A & B CARE MEDICARE REPLACEMENT JOHN HUTCHISON [id number] MEDICARE PART A & B CARE MEDICARE REPLACEMENT MEDICARE PART A & B [facility] CARE MEDICARE REPLACEMENT JOHN HUTCHISON [id number] MEDICARE PART A & B Member Subscriber Plan / Payer (Ef fective 2012-Present) Name:Ruthie Toussaint Member ID:[id number] Relation to Subscriber:Self Name:Ruthie Toussaint Subscriber ID:[id number] Payer ID:[id number] Group ID:Not on file Type:Medicare Address: [employer] [address] ONE CARE MEDICARE REPLACEMENT MEDICARE PART A & B [facility] ONE CARE MEDICARE REPLACEMENT Care Teams Can Tester Relationship Specialty Start Date End Date Ellsworth, Nikki Vail MD [address] [place] [address] PCP - General Family Medicine 12/08/23 Additional Source Comments The information contained in this document represents components of the legal health record. It is not the complete legal health record.[facility]
--- OUTSIDE RECORDS SUMMARY | 2025-02-20 12:55 | XMS_ITS | Encounter Summary ---
Author Organization [employer] Address [address] [facility] 7t [place] [address] Care Team Providers Care Retail Wireless Sales Consultant Name Role Phone Nikki James MD Primary Care Provider [phone]- [phone] Mary Rain PharmD Unavailable Gerson Briggs Unavailable [phone] Clemente Babatunde Babb DO Unavailable [phone] Delaney Cantu Unavailable Uzair Ruiz MD Unavailable Encounter Details Date Type Department Care Team (Late st Contact Info) Description 05/10/2022 Orders Only [facility] [address] [place], [place] [phone] Alyssa Mehta LPN Social History Tobacco Use [...] Description 03/13/2025 1:00 PM EST Nurse Only [facility] 230 [place], [place] [phone] documented as of this encounter Visit Diagnoses Not on filedocumented in this encounter Care Teams Retail Wireless Sales Consultant Relationship Specialty Start Date End Date Nikki James MD [address] [place], [place] [phone] PCP - General Family Medicine 04/24/18 Mary Rain, Kisha [address] [place] [address] Pharmacist Internal Medicine 01/26/23 Gerson Briggs 5 [place] [address] Pulmonary Disease 04/08/24 Babatunde Cornejo DO [address] [place] [address] Endocrinology 04/08/24 Delaney Cantu [address] [place] [address] Dermatology 04/08/24 Uzair Ruiz MD [address] [place] [address] Gastroenterology 09/05/24 Dr. Bravo [facility] [address] [place] [address] Orthopaedic Surgery 05/15/24 documented as of this encounter
--- OUTSIDE RECORDS SUMMARY | 2025-02-20 12:55 | XMS_ITS | Encounter Summary ---
Author Organization [employer] Address [address] [facility] 7t [place] [address] Care Team Providers Care Mill Hand Name Role Phone MoffatNikki melgar MD Primary Care Provider [phone] Mary Rain PharmD Unavailable Gerson Briggs Unavailable [phone] Babatunde Cornejo DO Unavailable [phone] Delaney Cantu Unavailable Uzair Ruiz MD Unavailable Reason for Referral * Consultation (STAT) - Closed Specialty Diagnoses / Procedures Referred By Conteliana t Referred To Contact Obstetrics and Gynecology Diagnoses Labial cyst Jenna Walter MD [address] [place] [address] Phone: tel: fax: [facility] Referral ID Status Reason Start Date Expiration Date V isits Requested Visits Authorized [id number] Closed Specialty Services Required 06/11/2024 06/11/2025 1 1 Encounter Details Date Type Department Care Team (Late st Contact Info) Description 06/11/2024 Orders Only [facility] [address] [place], [place] [phone] Jenna Walter MD [address] [place], [place] [phone] Labial cyst (Primary Dx) Social History Tobacco [...] Description 03/13/2025 1:00 PM EST Nurse Only [facility] [address] [place] [address] Scheduled Referrals Name Type Priority Associated Diagnoses [...] documented as of this encounter Care Teams Mill Hand Relationship Specialty Start Date End Date Nikki James MD [address] [place] [address] PCP - General Family Medicine 04/24/18 Mary Rain PharmD [address] [place] [address] Pharmacist Internal Medicine 01/26/23 Gerson Briggs 5 [place] [address] Pulmonary Disease 04/08/24 Babatunde Cornejo DO 22 [place] [address] Endocrinology 04/08/24 Delaney Cantu [address] [address] Dermatology 04/08/24 Uzair Ruiz MD [address] [place] [address] Gastroenterology 09/05/24 Dr. Bravo [facility]opedics [address] [place] [address] Orthopaedic Surgery 05/15/24 documented as of this encounter
--- OUTSIDE RECORDS SUMMARY | 2025-02-20 12:55 | XMS_ITS | Encounter Summary ---
Author Organization [employer] Address [address] [facility] 7t [place] [address] Care Team Providers Care Inspector Publications Name Role Phone Nikki James MD Primary Care Provider [phone] Mary Rain PharmD Unavailable Gerson Briggs Unavailable [phone] Clemente Babatunde Holley DO Unavailable [phone] Delaney Cantu Unavailable Uzair Ruiz MD Unavailable Reason for Visit * Reason Onset Date Comments Nurse Triage 05/16/2023 Encounter Details Date Type Department Care Team (Late st Contact Info) Description 05/16/[address] [facility] MEDICINE [address] [place] [address] Nikki James MD [address] [place], [place] [phone] Nurse Triage Social History Tobacco Use Types [...] 05/16/2023 12:32 PM EST Triage call with [place] cardiac surgeon [id number] Pt reports positive Covid test 05/10/23. Pt [...] The caller accepted this outcome Patient speaks bahraini documented in this encounter Plan of Treatment Upcoming Encounters Date Type Department Care Team (Late st Contact [facility]) Description 03/13/2025 1:00 PM EST Nurse Only [facility] MEDICINE [address] [place] [address] documented as of this encounter Goals Goal Patient Goal Type Associated Problems Recent Progress Patient-Stated? Author Blood Pressure < 140/90 Blood Pressure 110/66(2024 9:39 AM EDT) No Piers-Gambl e, Mary, PharmD Hemoglobin A1c < 7 Result Component 6.4( 12:00 AM EDT) No Piers-Gambl e, Mary, PharmD documented as of this encounter Visit Diagnoses Not on filedocumented in this encounter Additional Health Concerns Assessment Noted Time PHQ-9 Depression Total Score: 10 023 11:39 AM EDT documented as of this encounter Care Teams Inspector Publications Relationship Specialty Start Date End Date Nikki James MD [address] [place] [address] PCP - General Family Medicine 04/24/18 Mary Rain PharmD [address] [place] [address] Pharmacist Internal Medicine 01/26/23 Gerson Briggs [address] [place] [address] Pulmonary Disease 04/08/24 Babatunde Cornejo DO [address] [place] [address] Endocrinology 04/08/24 Delaney Cantu [address] [place] [id number] Dermatology 04/08/24 Uzair Ruiz MD [address] [place] [address] Gastroenterology 09/05/24 Dr. Bravo [facility] Orthopedics [address] [facility] [address] Orthopaedic Surgery 05/15/24 documented as of this encounter
--- OUTSIDE RECORDS SUMMARY | 2025-02-20 12:55 | XMS_ITS | Encounter Summary ---
Author Organization [employer] Address [address] [facility] 7t [place] [address] Care Team Providers Care E Commerce Marketing Analyst Name Role Phone Nikki James MD Primary Care Provider [phone] Mary Rain PharmD Unavailable Gerson Briggs Unavailable [phone] Clemente Babatunde Babb DO Unavailable [phone] Delaney Cantu Unavailable Uzair Ruiz MD Unavailable Encounter Details Date Type Department Care Team (Late st Contact Info) Description 06/02/2022 Abstract [facility] MEDICINE [address] [place] [id number] Nikki James MD [address] [place], [place] [phone] Social History Tobacco Use Types Packs/Day Years [...] Description 03/13/2025 1:00 PM EST Nurse Only [facility] MEDICINE [address] [place], [place] [phone] documented as of this encounter Procedures Procedure [...] on filedocumented in this encounter Care Teams E Commerce Marketing Analyst Relationship Specialty Start Date End Date Nikki James MD [address] [place] [address] PCP - General Family Medicine 04/24/18 Mary Rain, ElishaD [address] [place] [address] Pharmacist Internal Medicine 01/26/23 Gerson Briggs [address] [place] [address] Pulmonary Disease 04/08/24 Babatunde Cornejo DO [address] [place] [address] Endocrinology 04/08/24 Delaney Cantu [address] [address] Dermatology 04/08/24 Uzair Ruiz MD [address] [place] [address] Gastroenterology 09/05/24 Dr. Bravo [facility] Orthopedics [address] [place] [address] Orthopaedic Surgery 05/15/24 documented as of this encounter
--- OUTSIDE RECORDS SUMMARY | 2025-02-20 12:55 | XMS_ITS | Encounter Summary ---
Author Organization [employer] Address [address] [facility] [address] [place] [address] Care Team Providers Care Injection Molding Technician Name Role Phone Nikki James MD Primary Care Provider [phone] Mary Rain PharmD Unavailable Gerson Briggs Unavailable [phone] Clemente Babatunde Holley DO Unavailable [phone] Delaney Cantu Unavailable Uzair Ruiz MD Unavailable Reason for Visit * Reason Onset Date Comments chart prep 02/19/2025 Encounter Details Date Type Department Care Team (Late st Contact Info) Description 02/19/2025 Telephone [facility] MEDICINE [address] [place], [place] [phone] Nikki James MD [address] [place], [place] [phone] chart prep Social History Tobacco Use Types Packs/Day Years [...] encounter Miscellaneous Notes * Telephone Encounter - Lia Khan [place] - 02/19/2025 8:27 AM EDT Chart Prep Labs: done Images: not applicable Referrals: Please give pt referral letter for rheuma. Pt have an aappt for infusion 04/03/25 12pm, pulmo 10/16/25 11:15am Vaccines due: not applicable Screenings: pap smear and foot exam Overdue care gaps: SBIRT and PHQ-9,A1C,Gluco documented in this encounter Plan of Treatment Upcoming Encounters Date Type Department Care Team (Late st Contact Info) Description 03/13/2025 1:00 PM EST Nurse Only [facility] MEDICINE [address] [place] [address] documented as of this encounter Goals Goal [...] documented as of this encounter Care Teams Injection Molding Technician Relationship Specialty Start Date End Date Nikki James MD [address] [place] [address] PCP - General Family Medicine 04/24/18 Mary Rain, PharmD [address] [place] [address] Pharmacist Internal Medicine 01/26/23 Gerson Briggs 5 [place] [address] Pulmonary Disease 04/08/24 Babatunde Cornejo DO [address] [place] [address] Endocrinology 04/08/24 Delaney Cantu [address] [address] Dermatology 04/08/24 Uzair Ruiz MD [address] [place] [address] Gastroenterology 09/05/24 Dr. Bravo [facility] Orthopedics [address] [place] [address] Orthopaedic Surgery 05/15/24 documented as of this encounter
--- OUTSIDE RECORDS SUMMARY | 2025-02-20 12:55 | XMS_ITS | Clinical Summary ---
Author Organization [employer] Address [address] [place] [address] Care Team Providers [employer] Manager Name Role Phone Nikki James MD Primary Care Provider [phone] Mary Rain PharmD Unavailable Gerson Briggs Unavailable [phone] Babatunde Cornejo DO Unavailable [phone] Delaney Cantu Unavailable Uzair Ruiz MD [...] by mouth in the morning. 024 Active DULoxetine (Cymbalta) [address] capsuleIndicatio ns:Depression, recurrent (CMS/HCC) Take 30 mg by mouth Once per day. 024 Active triamcinolone (Kenalog) 0.1 % creamIndications :Dermatitis 024 Active lisinopril 20 MG tabletIndication s:Primary hypertension Take 1 tablet (20 mg) by mouth Once per day. 90 tablet 3 024 Active Aspirin Low Dose 81 MG EC tabletIndication s:Abnormal echocardiogram TAKE 1 TABLET BY MOUTH EVERY DAY 90 tablet 3 024 Active Budeson-Glycopyr rol-Formoterol (Breztri Aerosphere) 160-9-4.8 MCG/ACT aerosolIndicatio ns:Moderate persistent asthma without complication Inhale. Active pantoprazole (ProtoNix) 20 MG EC tabletIndication s:Pain TAKE 1 TABLET BY MOUTH EVERY DAY 90 tablet 1 025 Active cyanocobalamin (Vitamin B-12) 1000 MCG/ML injectionIndicat ions:B12 deficiency Inject 1ml IM weekly x 4 weeks then monthly x 12 months 4 mL 11 025 Active hydroCHLOROthiaz pablo (HYDRODiuril) 25 MG tabletIndication s:Primary hypertension TAKE 1 TABLET(25 MG) BY MOUTH DAILY 90 tablet 1 025 Active Semaglutide,0.25 or 0.5MG/DOS, (Ozempic, 0.25 or 0.5 MG/DOSE,) 2 MG/3ML solution pen-injectorIndi cations:Type 2 diabetes mellitus without complication, with long-term current use of insulin (HCC) Inject under the skin. Active Budeson-Glycopyr rol-Formoterol (Breztri Aerosphere) 160-9-4.8 MCG/ACT aerosolIndicatio ns:B12 deficiency Inhale 2 puffs 2 times daily. Active empagliflozin (Jardiance) 25 MGIndications:Ty pe 2 diabetes mellitus without complication, with long-term current use of insulin (HCC) Take 25 mg by mouth. 022 Active cholecalciferol (Vitamin D-3) 50 MCG (2000 UT) capsuleIndicatio ns:Vitamin D deficiency Take 1 capsule (50 mcg) by mouth Once per day. 90 capsule 3 025 Active ciclesonide (Alvesco) 160 MCG/ACT inhalerIndicatio ns:Moderate persistent asthma without complication Inhale. 021 2024 Discontinued(M ed list cleanup (will not trigger notification to Pharmacy)) Anoro Ellipta 62.5-25 MCG/ACT aerosol powderIndication s:Moderate persistent asthma without complication INHALE 1 PUFF BY MOUTH DAILY 024 2024 Discontinued(M ed list cleanup (will not trigger notification to Pharmacy)) empagliflozin (Jardiance) 10 MGIndications:Ty pe 2 diabetes mellitus without complication, without long-term current use of insulin ([facility]) Take 1 tablet by mouth once daily 30 tablet 3 024 2024 Discontinued(M ed list cleanup (will not trigger notification to Pharmacy)) atorvastatin (Lipitor) 40 MG tabletIndication s:Type 2 diabetes mellitus without complication, without long-term current use of insulin ([facility]) Take 1 tablet (40 mg) by mouth Once per day. 90 tablet 3 024 2024 Discontinued(M ed list cleanup (will not trigger notification to Pharmacy)) montelukast (Singulair) 10 MG tabletIndication s:Moderate persistent asthma without complication Take 1 tablet (10 mg) by mouth at bedtime. 90 tablet 3 024 2024 Discontinued(M ed list cleanup (will not trigger notification to Pharmacy)) cholecalciferol (Vitamin D-3) 25 MCG (1000 UT) capsuleIndicatio ns:Vitamin D deficiency Take 1 capsule (25 mcg) by mouth Once per day. 60 capsule 2 024 2024 Discontinued(M ed list cleanup (will not trigger notification to Pharmacy)) Continuous Glucose Sensor (FreeStyle Mariusz 2 Sensor) miscIndications: Type 2 diabetes mellitus without complication, without long-term current use of insulin (HCC) Use as directed to monitor glucose ever 8 hours. Replace sensor every 14 days. 2 each 024 2024 Discontinued(M ed list cleanup (will not trigger notification to Pharmacy)) glucose blood (FreeStyle Precision Reza Test) test stripIndications :Type 2 diabetes mellitus without complication, without long-term current use of insulin ([facility]) Test blood sugar q 8 hours 100 each 024 2024 Discontinued(M ed list cleanup (will not trigger notification to Pharmacy)) semaglutide (Ozempic, 0.25 or 0.5 MG/DOSE,) 2 MG/1.5ML solution pen-injectorIndi cations:Type 2 Diabetes Mellitus Inject 0.25 mg subcutaneously q week x 4 weeks, then increased to 0.5mg subcutaneously q week after 3 mL 3 024 2024 Discontinued ROFLUMILAST POIndications:Mo derate persistent asthma without complication Take by mouth. 2024 Discontinued(M ed list cleanup (will not trigger notification to Pharmacy)) Budeson-Glycopyr rol-Formoterol (Breztri Aerosphere) 160-9-4.8 MCG/ACT aerosolIndicatio ns:Moderate persistent asthma without complication Inhale 2 puffs 2 times daily. 2024 Discontinued(M ed list cleanup (will not trigger notification to Pharmacy)) levocetirizine (Xyzal) 5 MG tabletIndication s:Seasonal allergies TAKE 1 TABLET BY MOUTH EVERY DAY 30 tablet 1 025 2024 Discontinued(M ed list cleanup (will not trigger notification to Pharmacy)) Lancets (OneTouch Delica Plus [id number]) miscIndications: Type 2 diabetes mellitus without complication, without long-term current use of insulin ([facility]) USE TO TEST BLOOD SUGAR ONCE A DAY 100 each 025 2024 Discontinued(M ed list cleanup (will not trigger notification to Pharmacy)) glucose blood test strip USE TO TEST BLOOD SUGAR ONCE A DAY. Freestyle glucometer 100 each 12 10/22/ 025 2024 Discontinued(M ed list cleanup (will not trigger notification to Pharmacy)) glucose blood (FREESTYLE LITE) test stripIndications :Type 2 diabetes mellitus without complication, without long-term current use of insulin (HCC) Use bid. Dx diabetes 60 each 11 025 2024 Discontinued(M ed list cleanup (will not trigger notification to Pharmacy)) Hospital, Clinic, or Other Facility Administered Medication Ordered Dose Route Frequency Start Date End Date Status cyanocobalamin (Vitamin B-12) injection 1,000 mcgIndications:B12 deficiency 1000 mcg IM Weekly 10/19/2024 Active Active Problems Patient Care Coordination No te Formatting of this note migh t be different from the original. 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: Devi Coating Mixer Agency: [employer] Problem Noted Date Diagnosed Date B12 deficiency 10/18/2024 Overview (02/20/2025): Lab Results Component Value Date VITB12 <148 (L) 10/16/2024 FOLATE 11.5 10/16/2024 -low on oral B12 -injectable B12 1000mcg weekly x 4 weeks then monthly started 10/18/24 Assessment & Plan (02/20/2025 10:41 AM EDT): Lab Results Component Value Date VITB12 <148 (L) 10/16/2024 FOLATE 11.5 10/16/2024 -low on oral B12 -injectable B12 1000mcg weekly x 4 weeks then monthly started 10/18/24 Orders: Vitamin B12/Folate, Serum Panel; Future Gastroesophageal reflux dise ase with esophagitis without [...] 05/03/[address] 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 Assessment & Plan (02/20/2025 10:41 AM EDT): -baseline weight 221 lbs -Ozempic prescribed by endocrinology -given BMI >30kg/m2 or >27kg/m2 with one or more weight related comorbidities pt is a candidate for glucagon-like peptide-1s (GLP-1) to assist with weight loss and diabetes management BMI Readings from Last 3 Encounters: 02/20/25 31.31 kg/m 10/16/24 32.24 kg/m 02/12/24 37.59 kg/m Wt Readings from Last 3 Encounters: 02/20/25 [...] considered to be 1.7 or 2.4 mg senior living. -f/u in 2 months. -10/16/24 reports doing [...] considered to be 1.7 or 2.4 mg senior living. -f/u in 2 months. Dermatitis 12/28/2023 Thyroid [...] least three times. She was followed by [facility] and was last seen for her final visit Feb 2011. Her care was transferred to [facility] who she sees for [...] least three times. She was followed by [facility] and was last seen for her final visit Feb 2011. Her care was transferred to [facility] who she sees for [...] least three times. She was followed by [facility] and was last seen for her final visit Feb 2011. Her care was transferred to [facility] who she sees for her chronic headaches and last saw Dec 2014. Topamax is 50 bid. She is now on gabapentin 100mg bid. Other specified health status 01/11/2023 Overview (02/20/2025): -next physical exam due after 02/20/26 -followed by Dr. García Wei of [facility] -dental home is [facility] -filed healthcare proxy on 07/17/2023 Assessment & Plan (02/20/2025 10:41 AM EDT): -next physical exam due after 02/20/26 -followed by Dr. Garíca Wei of [facility] -dental home is [facility] -filed healthcare proxy on 07/17/2023 Assessment & Plan (02/12/2024 10:51 AM EDT): -next physical exam due after 02/11/25 -followed by Dr. García Wei of [facility] -dental home is [facility] -Filed healthcare proxy on 07/17/2023 Assessment & Plan (07/17/2023 11:31 AM EDT): -next physical exam due after 01/19/2024 -eye care facilitated by Dr. Archibald -dental home is [facility] -Filed healthcare proxy on 07/17/2023 Assessment & Plan (01/18/2023 11:55 AM EDT): -next physical exam due after 01/19/2024 -eye care facilitated by Dr. 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 Labs improved. 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 Labs imporved. [...] Moderate persistent asthma without complication 12/14/2022 Overview (02/20/2025): Asthma controlled. Significant eosinophilia chronically on labs. - Continue with pulmonology with Dr. Briggs, note from 02/11/25 reviewed -stopped Dupixent due side effects -continue Breztri (budesonide ICS, glycopyrrolate anticholinergic, formoterol long acting beta agonist )BID started 10/09/23 -continue Fasenra (benralizumab Interleukin 5 inhibitor and monoclonal antibody) started 06/12/24 -ALEJANDRA as needed -Continue Singulair -reflux diet , F/U pulmonology 8-10 months Assessment & Plan (02/20/2025 10:41 AM EDT): Asthma controlled. Significant eosinophilia chronically on labs. [...] Continue with pulmonology -Continue albuterol and QVAR Depression, recurrent 03/30/2012 Overview (10/21/2023): Followed by therapist and psychiatrist. No suicidial or homacidial ideation. Assessment & Plan (02/20/2025 10:41 AM EDT): Assessment & Plan (02/12/2024 10:51 AM EDT): Followed by therapist and psychiatrist. No suicidial or homacidial ideation. Assessment & Plan (12/28/2023 11:08 AM EDT): Followed by therapist and psychiatrist. No suicidial or homacidial ideation. Assessment & Plan (10/21/2023 9:12 AM EDT): Followed by therapist and psychiatrist. No suicidial or homacidial ideation. DM w/o complication type II 03/30/2012 Overview (02/20/2025): Diabetes is controlled. Follows with Endocrinology, Dr. Cornejo Lab Results Component Value Date HGBA1C 6.4 11/06/2024 HGBA1C 6.4 (H) 11/04/2024 HGBA1C 6.1 (A) 10/16/2024 Lab Results Component Value Date CREATININE 0.79 02/12/2024 EGFR >60 02/12/2024 MICROALBCREU 6.9 02/12/2024 MICROALBCREU 4.5 01/16/2023 LDLCHOLCAL 86 02/12/2024 -Justus/Arb: lisinopril 20mg -Statin therapy: atorvastatin 40mg -Diabetic eye exam: referred to [facility] 10/16/24 -Diabetic foot exam: 12/28/23 -Continue lifestyle modifications -Continue current medications -Interested in [facility] , referred to [facility] [...] considered to be 1.7 or 2.4 mg senior living. -follow-up in 2 months. Assessment & Plan (02/20/2025 10:41 AM EDT): Diabetes is controlled. Follows with Endocrinology, Dr. Cornejo Lab Results Component Value Date HGBA1C 6.4 11/06/2024 HGBA1C 6.4 (H) 11/04/2024 HGBA1C 6.1 (A) 10/16/2024 Lab Results Component Value Date CREATININE 0.79 02/12/2024 EGFR >60 02/12/2024 MICROALBCREU 6.9 02/12/2024 MICROALBCREU 4.5 01/16/2023 LDLCHOLCAL 86 02/12/2024 -Justus/Arb: lisinopril 20mg -Statin therapy: atorvastatin 40mg -Diabetic eye exam: referred to [facility] 10/16/24 -Diabetic foot exam: 12/28/23 [...] considered to be 1.7 or 2.4 mg senior living. -follow-up in 2 months. Orders: POCT glucose manually resulted POCT glycosylated hemoglobin (Hgb A1c) Albumin, Random Urine W/Creatinine; Future Hepatic Function Panel; Future Lipid Panel, Standard; Future Basic Metabolic Panel; Future Assessment & Plan (10/16/2024 11:46 AM EDT): See above plan. Orders: Lancets (OneTouch Delica Plus [id number]) misc; USE TO TEST BLOOD SUGAR ONCE A [...] atorvastatin 40mg -Diabetic eye exam: referred to [facility] 10/16/24 -Diabetic foot exam: 12/28/23 [...] considered to be 1.7 or 2.4 mg senior living. -follow-up in 2 months. Orders: POCT glycosylated [...] considered to be 1.7 or 2.4 mg senior living. -follow-up in 2 months. Assessment & Plan [...] modifications -Continue current medications Assessment & Plan (02/20/2025 10:41 AM EDT): Assessment & Plan (10/16/2024 2:05 PM EDT): [...] face and neck, under the care of Gi Technician Dr. Cantu. Last note available from Dr [...] effort 08/13/2018 10/21/2023 Mild intermittent asthma 01/23/2017 Backache 01/27/2014 02/13/2025 Benign neoplasm of cerebral meninges (CMS/HCC) 01/27/2014 01/11/2023 Obesity due to excess calories 01/27/2014 02/20/2025 Carpal tunnel syndrome 03/30/201202/13 Chronic sinusitis 03/30/2012 02/13/2025 Disuse syndrome 03/30/2012 01/11/2023 Dizziness 03/30/2012 10/21/2023 Ventricular hemorrhage 03/30/201201/11 Encounters Date Type Department Care Team Description 02/20/2025 9:15 AM EDT Office Visit [address] [address] Nikki James MD Type 2 diabetes mellitus without complication, with long-term current use of insulin ([facility]) (Primary Dx); Other specified health status; Moderate persistent asthma without complication; B12 deficiency; Class 2 drug-induced obesity with serious comorbidity and body mass index (BMI) of 37.0 to 37.9 in adult; Transaminitis; Depression, recurrent (CMS/HCC); Primary hypertension; Hirsutism; Encounter for immunization; Vitamin D deficiency; Raynaud's phenomenon without gangrene; Arthralgia, unspecified joint 02/20/2025 Travel 02/19/[address] [address] Nikki James MD chart prep 02/12/2025 Patient Outreach [address] [address] Nikki James MD Pre-visit Planning (SDOH screening was completed on 10/16/2024) 02/10/2025 9:30 AM EDT Nurse Only [address] [address] Ivanna White RN Encounter for immunization 02/10/2025 Travel 01/06/2025 Orders Only [address] [address] Nikki James MD VONNIE positive (Primary Dx); Arthralgia, unspecified joint 01/03/2025 2:00 PM EDT Clinical Support [address] [address] Ivanna White, RN B12 deficiency 01/03/[address] [address] Nikki James MD Referral 01/03/2025 Travel 11/27/2024 3:00 PM EDT Clinical Support [address] [address] Mandi Junior, MAYA B12 deficiency 11/27/2024 Travel 11/27/[address] [address] Nikki James MD Primary hypertension from Last 3 Months Immunizations Immunization Administration Dates Next Due Hep A, Adult 02/20/2025,09/22/2017 Hep B, adult 05/22/2006,09/20/2005,08/19/2005 Influenza Injectable Quadriv [...] Mass Index 31.31 02/20/2025 9:39 AM EDT Plan of Treatment Upcoming Encounters Date Type Department Care Team (Late st Contact Info) Description 03/13/2025 1:00 PM EST Nurse Only [facility] [address] [place] [address] Health Maintenance Due Date Last Done Comments CT Colonography 1965 FIT DNA/Cologuard 1965 FIT 1965 FOBT 1965 Sigmoidoscopy 1965 Pap Smear 12/27/2019 12/26/2014 Cervical Cancer Screening 01/22/2025 HPV/Cotest 01/22/2025 01/23/2020, 01/23/2020 Diabetes: Hemoglobin A1C 05/09/2025 025, 11/04/2024, 10/16/2024, Additional history exists Pneumococcal Vaccine: 50+ Years (3 of 3 - PCV20 or PCV21) 06/20/2025 06/20/2020, 02/07/2016, 02/07/2016, Additional history exists Eye Exam 06/28/2025 06/29/2023, 0310/2023, 06/29/2023, Additional history exists Depression Monitoring 08/21/2025 02/20/2025, 025 Disability Screening 10/16/2025 10/16/2024 SDOH Screening 10/16/2025 10/16/2024 Lipid Panel 11/06/2025 11/06/2024, 01/23, 01/16/2023, Additional history exists Alcohol/Substance Use Screening 02/20/2026 02/20/2025 Diabetes: Foot Exam 02/20/2026 02/20/2025, 02/20/2025, 02/20/2025, Additional history exists Diabetes: Urine Protein Screening 02/20/2026 02/20/2025, 02/12/2024, 01/16/2023, Additional history exists Tobacco Screening 02/20/2026 02/20/2025 Mammogram 04/05/2026 04/05/2024, 11/0 05/2022, 11/06/2020, Additional [...] Completed 02/10/2025, , 01/18/2023, Additional history exists Hepatitis A Vaccines Completed 02/20/2025, 09/23/19 18 HIB Vaccines Aged Out No longer eligi [...] with long-term current use of insulin (HCC) LIPID PANEL, STANDARD (EXTERNAL RESULTS ONLY) Routine 11/06/2024 10:13 AM EDT HEMOGLOBIN A1C Routine 11/06/2024 HEPATITIS PANEL, GENERAL Routine 10/16/2024 11:45 AM EDT Transaminitis BI MAMMOGRAM SCREENING TOMOSYNTHESIS BILATERAL Routine 04/05/2024 1:00 PM EST HIV 1/2 ANTIGEN/ANTIBODY, FOURTH GENERATION W/RFL Routine 05/31/2021 1:02 PM EST ZZZ HISTORICAL HPV E6/E7 RFLX ESTEE 16 18/45 Routine 01/23/2020 2:02 PM EDT HM COLONOSCOPY Routine 09/15/2017 PAP SMEAR Routine 12/26/2014 12:00 AM EDT from Last 3 Months or Most Recently Relevant to Health Maintenance Results * Albumin, Random Urine W/Creatinine (02/20/2025 10:41 AM EDT) Creatinine, Urine 109.20 mg/dL [facility] Microalbumin Urine 5.0 mg/L [facility] Microalbum Creatinine Ratio Ur 4.5 <30 ug/mg cr [facility] Comment:Albumin/Creatinine R atio Reference Ranges: Normal: < 30 ug/mg creatinine Microalbuminuria: 30 - 300 ug/mg creatinineClinical Albuminuria: > 300 ug/mg creatinine Urine 02/20/2025 10:4 1 AM EDT 02/20/2025 11:10 AM EDT Nikki James MD LAB URINE ORDERABLES Final Result [facility] [address] [place] [phone] * Lipid Panel, Standard (11/06/2024 10:13 AM EDT) Total Cholesterol 160 HDL Cholesterol 55 Triglycerides 84 LDL-Cholesterol 89 Cholesterol/HDL Ratio 2.9 Blood Venous blood specimen / Unknown 11/06/2024 10:13 AM EDT Jose Gardner MD POINT OF CARE TEST ENTER/ EDIT ORDERABLES Final Result * Hemoglobin A1c (11/06/2024) Hemoglobin A1c 6.4 Blood Venous blood specimen / Unknown Result [facility] Provider LAB BLOOD ORDERABLES Nadeen l Result * Hepatitis Panel, General (10/16/2024 11:45 AM EDT) Hepatitis A IgM Nonreactive Nonreactive [facility] Comment:IgM antibodies to NICOLAS V not detected; does not exclude earlyacute or recovered HAV infection. ~Hepatitis B Surface Antibody GRAYZONE Nonreactive [facility] Comment:GRAYZONE: 8.00 mIU/m L TO 11.99 mIU/mLTHE IMMUNE STATUS OF THE INDIVIDUAL SHOULD BE FURTHERASSESSED BY CONSIDERING OTHER FACTORS, SUCH CLINICALSTATUS, FOLLOW-UP TESTING, ASSOCIATED RISK FACTORS, AND THEUSE OF ADDITIONAL DIAGNOSTIC INFORMATION. Hepatitis B Core Antibody Nonreactive Nonreactive [facility] Hepatitis C Antibody Nonreactive Nonreactive [facility] Comment:Antibodies to HCV no t detected; does not exclude early acuteHCV infection. Hepatitis B Surface Ag Negative Negative [facility] Blood Venous blood specimen / Unknown 10/16/2024 11:45 AM EDT 10/16/2024 1:20 PM EDT Nikki James MD LAB BLOOD ORDERABLES Final Result [facility] [address] [place] [address] [phone] * BI Mammogram Screening Tomosynthesis Bilateral (04/05/2024 1:00 PM EST) Anatomical Region Laterality Modality Breast Bilateral Mammography 04/05/2024 1:00 PM EST Narrative 04/15/2024 3:59 PM EST [address] [place] [address] Mammography Report Signed Patient: Ruthie Toussaint MR#: [id number] 6 : 1965 Acct:[id number] Age/Sex: 58 / F ADM Date: 04/05/24 Loc: HO.MAMMO Attending Dr: Nikki James MD Ordering Physician: Nikki James MD Results: 1N egative Date of Service: 04/05/24 Follow Up: 1 Year From Orig ina Mammogram Procedure(s): MM tomosynthesis screening BI Accession Number(s): [id number] cc: Nikki James MD EXAMINATION: MM SCREENING [...] 04/15/24 1556 DD/ 1300 TD/TT: 04/05/24 1318 Convention Services Manager: Procedure Note Donotuseinterpreter, Image - 04/15/2024 Tiffanie [facility] [address] [place], [place] [address] Mammography Report Signed Patient: Sameera Toussaint#: [id number] 6 : 1965Acct:[id number] Age/Sex: 58 / FADM Date: 04/05/24 Loc: HO.MAMMO Attending Dr: Nikki James MD Ordering Physician: Nikki James MDResults: 1N egative Date of Service: 04/05/24Follow Up: 1 Year From Orig inal Mammogram Procedure(s): MM tomosynthesis screening BI Accession Number(s): [id number] cc: Nikki James MD EXAMINATION: MM SCREENING [...] 04/15/24 1556 DD/ 1300 TD/TT: 04/05/24 1318 Convention Services Manager: Nikki James MD IMG BI PROCEDURES Final Re sult * HIV 1/2 ANTIGEN/ANTIBODY,FOURTH GENERATION W/RFL (05/31/2021 1:02 PM EST) HIV-1/2 ANTIGEN AND ANTIBODIES, 4TH GENERATION W/ REFLEX NON-REACT MARTIN NON-REACT MARTIN [facility] Comment: HIV-1 antigen and HIV-1/HIV-2 [...] purpose. For additional information please refer to [email or web address] [email or web address]/faq/[email or web address] (This link is being provided for informational/ educational purposes only.) The performance of this assay has not been clinically validated in patients less than 2 years old. 05/31/2021 1:02 PM EST Nikki James MD LAB BLOOD ORDERABLES Final Result [facility] [address] * HPV E6/E7 RFLX ESTEE 16 18/45 (01/23/2020 2:02 PM EDT) HPV 16 RNA [facility] HPV 18/45 RNA [facility] HPV E6 E7 ADD [facility] HPV mRNA E6/E7 Not Detected Not Detected [facility] Comment: This test was performed using the APTIMA HPV Assay ([employer] This assay detects E6/E7 viral messenger RNA (mRNA) from 14 high-risk HPV types (16,18,31,33,35,39,45,51,52,56,58,59,66,68). The analytical performance characteristics of this assay have been determined by [employer]. The modifications have not been cleared or approved by the FDA. This assay has been validated pursuant to the CLIA regulations and is used for clinical purposes. THIS TEST WAS PERFORMED AT: [facility] [address] [place] [address] [address] [phone] CASSIE VANCE MD 01/23/2020 2:02 PM EDT Jessica Grace HISTORICAL/NON ORDERABLE LABS Fi nal Result [facility] [address] * Colonoscopy (09/15/2017) Colonoscopy normal with Dr. Oliver Historical Provider HEALTH MAINTENANCE Final Result * Pap Smear (12/26/2014 12:00 AM EDT) Swab Historical Provider LAB CYTOLOGY ORDERABLES F inal Result Performing Organization Address City/[facility]/ZIP Co de Phone Number IMAGING from Last 3 Months or Most Recently Relevant to Health Maintenance Insurance [employer] [facility] < [address] [place] [id number] Advance Directives Documents on File Type Date Recorded Patient Public Health Aides Teacher Expl anation Advance Directives and Livin g Will 07/17/2023 Health Care Proxy Care Teams T[employer] Center Manager Relationship Specialty Start Date End Date Carson, MD Nikki [address] [place] [address] PCP - General Family Medicine 04/24/18 Mary Rain PharmD [address] [place] [address] Pharmacist Internal Medicine 01/26/23 Gerson Briggs 5 [place] [address] Pulmonary Disease 04/08/24 Babatunde Cornejo DO 22 [place] [address] Endocrinology 04/08/24 Delaney Cantu [facility] [address] Dermatology 04/08/24 Uzair Ruiz MD [address] [place] [address] Gastroenterology 09/05/24 Dr. Bravo [facility] [address] [place] [address] Orthopaedic Surgery 05/15/24
--- OUTSIDE RECORDS SUMMARY | 2025-02-20 12:55 | XMS_ITS | Encounter Summary ---
Author Organization [employer] Address 75 [facility] 7t [place] [address] Care Team Providers Care Graphic User Interface Designer Name Role Phone Nikki James MD Primary Care Provider [phone]- [phone] Mary Rain PharmD Unavailable Gerson Briggs Unavailable [phone] Babatunde oCrnejo DO Unavailable [phone] Delaney Cantu Unavailable Uzair Ruiz MD Unavailable Encounter Details Date Type Department Care Team (Latest Contact Info) Description 02/20/2025 Travel Social History Tobacco Use Types Packs/Day [...] AM EDT documented as of this encounter Functional Status * Over the past 2 weeks, how often have you been bothered by any of the following problems? Question Answer Date of Assessment Author Patient Health Questionnaire-2 Score 2 01/24 9:40 AM EMANUELT Mary Jane Kim MA * Little interest [...] Author Nearly every day 02/20/2025 9:40 AM EDT Balaji Kim MA * Moving or speaking so slowly that other people could have noticed? Or the opposite - being so fidgety or restless that you have been moving around a lot more than usual. Answer Date of Assessment Author Several days 02/20/2025 9:40 AM EDT Britany Kim MA * Thoughts that you would be better off or hurting yourself in some way Answer Date of Assessment Author Not at all 02/20/2025 9:40 AM EDT Britany Kim MA * Patient Health Questionnaire-9 Score Answer Date of Assessment Author 10 02/20/2025 9:40 AM EDT Britany Kim MA documented as of this encounter Plan of Treatment Upcoming Encounters Date Type Department Care Team (Late st Contact [facility]) Description 03/13/2025 1:00 PM EST Nurse Only [facility] MEDICINE [address] [place] [address] documented as of this encounter Goals Goal [...] documented as of this encounter Care Teams Graphic User Interface Designer Relationship Specialty Start Date End Date Nikki James MD 230 [place] [address] PCP - General Family Medicine 04/24/18 Mary Rain, PharmD 230 [place] [address] Pharmacist Internal Medicine 01/26/23 Gerson Briggs 5 [place] [address] Pulmonary Disease 04/08/24 Babatunde Cornejo DO 22 [place] [address] Endocrinology 04/08/24 Delaney Cantu [address] [address] Dermatology 04/08/24 Uzair Ruiz MD [address] [place] [address] Gastroenterology 09/05/24 Dr. Bravo [facility] [address] [place] [address] Orthopaedic Surgery 05/15/24 documented as of this encounter
--- OUTSIDE RECORDS SUMMARY | 2025-02-20 12:55 | XMS_ITS | Encounter Summary ---
Author Organization [employer] Address 75 [facility] 7t [place] [address] Care Team Providers Care Upkeep Worker Name Role Phone Nikki James MD Primary Care Provider [phone] Mary Rain PharmD Unavailable Gerson Briggs Unavailable [phone] Clemente Babatunde Babb DO Unavailable [phone] Delaney Cantu Unavailable Uzair Ruiz MD Unavailable Encounter Details Date Type Department Care Team (Late st Contact Info) Description 10/05/2022 Orders Only [facility] PEDS [address] [place], [place] [phone] Alyssa Mehta LPN Social History Tobacco Use [...] PM EST Nurse Only [facility] MEDICINE [address] [place], [place] [phone] documented as of this encounter Visit Diagnoses Not on filedocumented in this encounter Care Teams Upkeep Worker Relationship Specialty Start Date End Date Nikki James MD 230 [place], [place] [phone] PCP - General Family Medicine 04/24/18 Mary Rain, Kisha [address] [place] [address] Pharmacist Internal Medicine 01/26/23 Gerson Briggs 5 [place] [address] Pulmonary Disease 04/08/24 Babatunde Cornejo DO 22 [place] [address] Endocrinology 04/08/24 Delaney Cantu [address] [place] [address] Dermatology 04/08/24 Uzair Ruiz MD [address] [place] [address] Gastroenterology 09/05/24 Dr. Bravo [facility] [address] [place] [address] Orthopaedic Surgery 05/15/24 documented as of this encounter
--- OUTSIDE RECORDS SUMMARY | 2025-02-20 12:55 | XMS_ITS | Encounter Summary ---
Author Organization [employer] Address 75 [facility] 7t [place] [address] Care Team Providers Care Network Operations Center Technician Name Role Phone Nikki James MD Primary Care Provider [phone]- [phone] Mary Rain PharmD Unavailable Gerson Briggs Unavailable [phone] Clemente Babatunde Holley DO Unavailable [phone] Delaney Cantu Unavailable Uzair Ruiz MD Unavailable Reason for Visit * Reason Onset Date Comments Referral 02/15/2023 Encounter Details Date Type Department Care Team (Late st Contact Info) Description 02/15/2023 Telephone [facility] MEDICINE [address] [place], [place] [phone] Nikki James MD 230 [place], [place] [phone] Referral Social History Tobacco Use Types Packs/Day [...] specialist due to headaches and aneurysm historial. [facility] Neurology [facility] [address] [address] documented in this encounter Plan of Treatment Upcoming Encounters Date Type Department Care Team (Late st Contact Info) Description 03/13/2025 1:00 PM EST Nurse Only [facility] [address] [place] [address] documented as of this encounter Goals Goal [...] Noted Time PHQ-9 Depression Total Score: 10 01/18/2 023 11:39 AM EDT documented as of this encounter Care Teams Network Operations Center Technician Relationship Specialty Start Date End Date Nikki James MD [address] [place] [address] PCP - General Family Medicine 04/24/18 Mary Rain PharmD [address] [place] [address] Pharmacist Internal Medicine 01/26/23 Gerson Brigsg 5 [place] [address] Pulmonary Disease 04/08/24 Babatunde Cornejo DO 22 [place] [address] Endocrinology 04/08/24 Delaney Cantu [address] [address] Dermatology 04/08/24 Uzair Ruiz MD [address] [place] [address] Gastroenterology 09/05/24 Dr. Bravo [facility] [address] [place] [address] Orthopaedic Surgery 05/15/24 documented as of this encounter
--- OUTSIDE RECORDS SUMMARY | 2025-02-20 12:55 | XMS_ITS | Encounter Summary ---
Author Organization [employer] Address 75 [facility] 7t [place] [address] Care Team Providers Care Sleeper Cutter Name Role Phone Nikki James MD Primary Care Provider [phone]- [phone] Mary Rain PharmD Unavailable Gerson Briggs Unavailable [phone] Babatunde Cornejo DO Unavailable [phone] Delaney Cantu Unavailable Uzair Ruiz MD Unavailable Reason for Visit * Reason Comments Med Refill Encounter Details Date Type Department Care Team (Late st Contact Info) Description 08/02/2024 Refill [facility] MEDICINE [address] [place], [place] [phone] Nikki James MD 230 [place], [place] [phone] Seasonal allergies Social History Tobacco Use Types [...] Upcoming Encounters Date Type Department Care Team ([facility] st Contact Info) Description 03/13/2025 1:00 PM EST Nurse Only [facility] MEDICINE 230 [place] [address] documented as of this encounter Goals Goal [...] documented as of this encounter Care Teams Sleeper Cutter Relationship Specialty Start Date End Date Nikki James MD 230 [place] [address] PCP - General Family Medicine 04/24/18 Mary Rain PharmD 230 [place] [address] Pharmacist Internal Medicine 01/26/23 Gerson Briggs 5 [place] [address] Pulmonary Disease 04/08/24 Babatunde Cornejo DO 22 [place] [address] Endocrinology 04/08/24 Delaney Cantu [address] [place] [address] Dermatology 04/08/24 Uzair Ruiz MD [address] [place] [address] Gastroenterology 09/05/24 Dr. Bravo [facility] [address] [place] [address] Orthopaedic Surgery 05/15/24 documented as of this encounter
--- OUTSIDE RECORDS SUMMARY | 2025-02-20 12:55 | XMS_ITS | Encounter Summary ---
Author Organization [employer] Address 75 [facility] 7t [place] [address] Care Team Providers Care Bundle Breaker Name Role Phone Nikki James MD Primary Care Provider [phone] Mary Rain PharmD Unavailable Gerson Briggs Unavailable [phone] Clemente Babatunde Holley DO Unavailable [phone] Delaney Cantu Unavailable Uzair Ruiz MD Unavailable Reason for Visit * Reason Onset Date Comments Nurse Triage 11/18/2024 Encounter Details Date Type Department Care Team (Late st Contact Info) Description 11/18/2024 Telephone [facility] MEDICINE 230 [place], [place] [phone] Nikki James MD [address] [place], [place] [phone] Nurse Triage Social History Tobacco Use Types [...] Elliott RN - 11/18/2024 4:23 PM EDT [facility] ED noted from 11/16/2024 printed and will be scanned into pt chart under media. * Telephone Encounter - Lucero Mares RN - 11/18/2024 4:02 PM EDT No high speed printer operator needed as this clinical writer speaks Upper Sorbian. Call returned to [facility] to triage belowat [phone]. Reports having nausea since Monday. Per pt seen at [facility] ER on Monday for sx. Ptwas given medications for nausea while at ER . Per pt was having constipation. Pt found to have colitis. Elevated WBC. Pt given abx, tylenol and ibuprofen . Pt is taking meds with food and drinking plenty of water. Pt offered to have instED see patient or seek VTC. Pt states called pharmacy and hasa med pendign but not sure if ondansetron. Pt agrees to take number for isntED PRN. Reviewed home care advise, ER precautions and reasons to call back. Will send to PCP to review and further advise if short course Rx for ondansetron can be sent for patient. Sent to team to obtain [facility] ER notes for provider review as well. [...] higher acuity questions Please contact pt at [phone]. (Upper Sorbian Speaker) documented in this encounter Plan of Treatment Upcoming Encounters Date Type Department Care Team (Late st Contact Info) Description 03/13/2025 1:00 PM EST Nurse Only [facility] [address] [place] [address] documented as of this encounter Goals Goal Patient Goal Type Associated Problems Recent Progress Patient-Stated? Author Blood Pressure < 140/90 Blood Pressure 110/66(2024 9:39 AM EDT) No [facility]-Roseline Mcadamssa, PharmD Hemoglobin A1c < 7 Result Component 6.4( 12:00 AM EDT) No [place]-Mary Mcadams, PharmD documented as of this encounter Visit Diagnoses Not on filedocumented in this encounter Additional Health Concerns Assessment Noted Time PHQ-9 Depression Total Score: 12 024 10:49 AM EDT documented as of this encounter Care Teams Bundle Breaker Relationship Specialty Start Date End Date Nikki James MD [address] [place] [address] PCP - General Family Medicine 04/24/18 Mary Rain, ElishaD [address] [place] [address] Pharmacist Internal Medicine 01/26/23 Gerson Briggs 5 [place] [address] Pulmonary Disease 04/08/24 Babatunde Cornejo DO 22 [place] [address] Endocrinology 04/08/24 Delaney Cantu [address] [address] Dermatology 04/08/24 Uzair Ruiz MD [address] [place] [address] Gastroenterology 09/05/24 Dr. Bravo [facility] [address] [facility] [address] Orthopaedic Surgery 05/15/24 documented as of this encounter
--- OUTSIDE RECORDS SUMMARY | 2025-02-20 12:55 | XMS_ITS | Encounter Summary ---
Author Organization [employer] Address 75 [facility] 7t [place] [address] Care Team Providers Care Staple Side Laster Name Role Phone Nikki James MD Primary Care Provider [phone] Mary Rain PharmD Unavailable Gerson Briggs Unavailable [phone] Clemente Babatunde Holley DO Unavailable [phone] Delaney Cantu Unavailable Uzair Ruiz MD Unavailable Reason for Visit * Reason Onset Date Comments Durable Medical Equipment 07/13/2022 Encounter Details Date Type Department Care Team (Late st Contact Info) Description 07/13/2022 Telephone [facility] MEDICINE [address] [place], [place] [phone] Nikki James MD [address] [place], [place] [phone] Durable Medical Equipment Social History Tobacco Use [...] send to medline Please contact pt at [phone] documented in this encounter Plan of Treatment Upcoming Encounters Date Type Department Care Team (Late st Contact Info) Description 03/13/2025 1:00 PM EST Nurse Only [facility] MEDICINE [address] [place] [address] documented as of this encounter Visit Diagnoses Not on filedocumented in this encounter Care Teams Staple Side Laster Relationship Specialty Start Date End Date Nikki James MD [address] [place] [address] PCP - General Family Medicine 04/24/18 Mary Rain, ElishaD [address] [place] [address] Pharmacist Internal Medicine 01/26/23 Gerson Briggs 5 [place] [address] Pulmonary Disease 04/08/24 Babatunde Cornejo DO 22 [place] [address] Endocrinology 04/08/24 Delaney Cantu [address] [address] Dermatology 04/08/24 Uzair Ruiz MD [address] [place] [address] Gastroenterology 09/05/24 Dr. Bravo [facility] [address] [place] [address] Orthopaedic Surgery 05/15/24 documented as of this encounter
--- OUTSIDE RECORDS SUMMARY | 2025-02-20 12:55 | XMS_ITS | Patient Health Record ---
Author Organization [facility] Address [address] [place] [address] Care Team Providers Care Mold Making Plastics Sheets Supervisor Name Role Phone Nikki aJmes MD Primary Care Provider Uzair Ferguson [phone] Allergies Allergen (clinical drug ingredient) Drug/Non Drug [...] Blood Reviewed date:09/02/2024 11:34:08 PM Interpretation: Performing Lab:[facility], [address] [place] [phone] Notes/Report: Glucose, Whole Blood 114 60-115 mg/dL METER # : [id number] Pathology Reviewed date:01/22/2025 04:07:45 PM Interpretation: Performing Lab:[facility], [address] [place] [phone] Notes/Report: Reason For Referral No Information Medications Medication SIG (Take, Route, Frequency, Duration) Notes Start Date End Date Status Anoro Ellipta 62.5-25 MCG/ACT INHALE 1 PUFF BY MOUTH DAILY Inhalation; Duration: 30 J449,Unavaila ble Active Jardiance 10 MG Oral; Duration: 90 Active Naproxen 500 MG Oral; Duration: 30 Active Lisinopril 20 MG Oral; Duration: 90 I10,Unavaila b le Active OneTouch Delica Plus [id number] - USE TO TEST BLOOD SUGAR ONCE DAY; Duration: 90 Active DULoxetine HCl 30 MG Oral; Duration: 90 Days Active Aspirin Low Dose 81 MG TAKE 1 TABLET BY MOUTH EVERY DAY Oral; Duration: 90 Active Zolpidem Tartrate 5 MG TAKE 1 TABLET BY MOUTH AT BEDTIME NEEDED Oral; Duration: 25 Days Active hydrOXYzine HCl 25 MG Oral; Duration: 30 Active LORazepam 0.5 MG Oral; Duration: 25 Days Active Breztri Aerosphere 160-9-4.8 MCG/ACT INHALE 2 PUFFS BY MOUTH TWICE DAILY Inhalation; Duration: 30 Active Pantoprazole Sodium 40 MG Oral; Duration : 90 Days Active hydroCHLOROthiazide 25 MG Oral; Duration: 90 I10 ,Unavailab le Active metroNIDAZOLE 500 MG Oral; Duration: 7 Days Active Pantoprazole Sodium 20 MG Oral; Duration: 90 Active Acetaminophen Extra Strength 500 MG TAKE 2 CAPLETS BY MOUTH EVERY 8 HOURS NEEDED FOR FEVER OR PAIN Oral; Duration: 5 Days Active Ozempic (1 MG/DOSE) 4 MG/3ML INJECT 1 MG UNDER THE SKIN EVERY 7 DAYS Subcutaneous; Duration: 28 Active metroNIDAZOLE 500 MG TAKE 1 TABLET BY MOUTH TWICE DAILY Oral; Duration: 7 Days Active Ezetimibe 10 MG Oral; Duration: 90 Days Active Jardiance 10 MG Oral; Duration: 90 Days Active Cyanocobalamin 1000 MCG/ML INJECT 1ML IN THE MUSCLE WEEKLY X 4 WEEKS THEN ONCE MONTHLY Injection; Duration: 28 Days Active Albuterol Sulfate HFA 108 (90 Base) MCG/ACT INHALE 2 PUFFS EVERY 6 HOURS NEEDED FOR SHORTNESS OF BREATH OR WHEEZING Inhalation; Duration: 25 Days Active hydroCHLOROthiazide 25 MG Oral; Duration : 90 Days Active Ozempic (2 MG/DOSE) 8 MG/3ML INJECT 2MG UNDER THE SKIN EVERY 7 DAYS Subcutaneous; Duration: 28 Days Active Pantoprazole Sodium 40 MG 1 tablet 1/2 t o 1 hour before morning meal Orally Once a day; Duration: 30 days 09/02/2024 Active Montelukast Sodium 10 MG Oral; Duration: J454 0,Unavail able Active Atorvastatin Calcium 40 MG Oral; Duration: 90 Active Vitamin D3 25 MCG (1000 UT) TAKE 1 CAPSU LE BY MOUTH EVERY DAY Oral; Duration: 30 M797,Unavaila ble Active DULoxetine HCl 30 MG TAKE 1 CAPSULE BY MOUTH DAILY Oral; Duration: 90 Active Immunizations Vaccine Route Administration Date Status Comme nts Influenza Unknown 02/13/2024 Administered Influenza Unknown 02/13/2024 Administered Social History Tobacco Use: Social History Observation Description Date Details (start date - stop date) Never Smoker NA - NA Tobacco Use/Smoking Question Answer Notes Patient is a nonsmoker Alcohol Screen Question Answer Notes Did you have a drink containing alcohol in the p ast year? No Points 0 Interpretation Negative Section Notes: Nonsmoker; no sig alcohol Nonsmoker; no sig alcohol Problems Problem Type SNOMED Code ICD Code Onset Dates Problem Status W/U Status Risk Notes Problem Colon cancer screening (291508337) Colon cancer screening (Z12.11) Active confirmed Problem Heartburn (18158269) Heartburn (R12) Active confirmed Problem Elevated liver enzymes level (273519594) Elevated liver enzymes (R74.8) Active confirmed Problem Fatty liver (594052185) Fatty liver (K76.0) Active confirmed Problem Gastroesophageal reflux disease (disorder) (548773078) Chronic GERD (K21.9) Active confirmed Vital Signs Temperature 97.9 degrees Fahrenheit 01/22/2025 Blood pressure diastolic 01 mm Hg 01/22/2025 Height 5 ft 4 in in 01/22/2025 Blood pressure systolic 001 mm Hg 01/22/2025 Weight 180.6 lbs 01/22/2025 BMI 31 kg/m2 01/22/2025 Encounters Encounter Location Date Provider Diagnosis [facility] [address] [place] [id number] 09/02/2024 Uzair Ruiz Hiatal hernia K44.9 and Gastro-esophageal reflux disease without esophagitis K21.9 [facility] [address] [place] [phone] 06/07/2024 Uzair Ruiz Chronic GERD K21.9 ; Heartburn R12 ; Fatty liver K76.0 and Elevated liver enzymes R74.8 [facility] [address] [place] [phone] 01/22/2025 Uzair Ruiz Chronic GERD K21.9 ; Fatty liver K76.0 ; Elevated liver enzymes R74.8 and Colon cancer screening Z12.11 [facility] [address] [place] [phone] 08/26/2024 Uzair Ruiz [facility] [address] [place] [phone] 09/02/2024 Uzair Ruiz [facility] [address] [place] [address] 09/17/2024 Uzair Ruiz [facility] [address] [place] [address] 01/22/2025 Uzair Ruiz Assessments Encounter Date Diagnosis (ICD [...] to keep you advised of her progress. 01/22/2025 Fatty liver (ICD-10 - K76.0) Watch diet, lose weight, and keep diabetes in good control to help with the fatty liver Overall, Ruthie appears well. We did review the findings on her recent upper endoscopy. Based on that I advised her to simply continue the pantoprazole daily, or she can certainly just use it as needed. However, at this point it sounds like she needs it daily to keep her symptoms of reflux in good control. We did review that watching her diet, eating smaller meals, not eating close to bedtime, and keeping the diabetes in good control will help with her reflux symptoms. I do not think she has any significant gastroparesis but depending upon her clinical course we could always obtain a gastric emptying study if need be if the reflux was to significantly worsen. I do not think she would need any further follow-up endoscopies given the negative biopsies for Hendrickson's esophagus. In regard to the fatty liver this seems to be very stable and not particularly problematic at this time given the basically normal liver profile over the summer, negative CT scan, and her good clinical appearance. Again, we did review that losing weight, eating a healthy diet, and keeping the diabetes well controlled will be the best treatment for that. I do not think she requires a liver biopsy nor any specific follow-up of that on my part. I would recommend that she have at least a yearly liver profile and be referred back to see me if the LFTs were to become 2-3 times elevated. We did review that she should have a repeat colonoscopy in 2031 for a 10-year follow-up to her exam in 2021. At this point if Ruthie remains well she will see me on an as needed basis. I did advise her to certainly call if she has any problems or questions I can be of assistance with. Ruthie and her daughter were comfortable with this plan. Thank you again for allowing me to participate in Ruthie's care. I shall continue to keep you advised of her progress. 01/22/2025 Chronic GERD (ICD-10 - K21.9) Continue the Pantoprazole 40mg every day and watch the diet to help with the heartbiurn and reflux. Overall, Ruthie appears well. We did review the findings on her recent upper endoscopy. Based on that I advised her to simply continue the pantoprazole daily, or she can certainly just use it as needed. However, at this point it sounds like she needs it daily to keep her symptoms of reflux in good control. We did review that watching her diet, eating smaller meals, not eating close to bedtime, and keeping the diabetes in good control will help with her reflux symptoms. I do not think she has any significant gastroparesis but depending upon her clinical course we could always obtain a gastric emptying study if need be if the reflux was to significantly worsen. I do not think she would need any further follow-up endoscopies given the negative biopsies for Hendrickson's esophagus. In regard to the fatty liver this seems to be very stable and not particularly problematic at this time given the basically normal liver profile over the summer, negative CT scan, and her good clinical appearance. Again, we did review that losing weight, eating a healthy diet, and keeping the diabetes well controlled will be the best treatment for that. I do not think she requires a liver biopsy nor any specific follow-up of that on my part. I would recommend that she have at least a yearly liver profile and be referred back to see me if the LFTs were to become 2-3 times elevated. We did review that she should have a repeat colonoscopy in 2031 for a 10-year follow-up to her exam in 2021. At this point if Ruthie remains well she will see me on an as needed basis. I did advise her to certainly call if she has any problems or questions I can be of assistance with. Ruthie and her daughter were comfortable with [...] to keep you advised of her progress. 01/22/2025 Elevated liver enzymes (ICD-10 - R74.8) Overall, uRthie appears well. We did review the findings on her recent upper endoscopy. Based on that I advised her to simply continue the pantoprazole daily, or she can certainly just use it as needed. However, at this point it sounds like she needs it daily to keep her symptoms of reflux in good control. We did review that watching her diet, eating smaller meals, not eating close to bedtime, and keeping the diabetes in good control will help with her reflux symptoms. I do not think she has any significant gastroparesis but depending upon her clinical course we could always obtain a gastric emptying study if need be if the reflux was to significantly worsen. I do not think she would need any further follow-up endoscopies given the negative biopsies for Hendrickson's esophagus. In regard to the fatty liver this seems to be very stable and not particularly problematic at this time given the basically normal liver profile over the summer, negative CT scan, and her good clinical appearance. Again, we did review that losing weight, eating a healthy diet, and keeping the diabetes well controlled will be the best treatment for that. I do not think she requires a liver biopsy nor any specific follow-up of that on my part. I would recommend that she have at least a yearly liver profile and be referred back to see me if the LFTs were to become 2-3 times elevated. We did review that she should have a repeat colonoscopy in 2031 for a 10-year follow-up to her exam in 2021. At this point if Ruthie remains well she will see me on an as needed basis. I did advise her to certainly call if she has any problems or questions I can be of assistance with. Ruthie and her daughter were comfortable with [...] to keep you advised of her progress. 01/22/2025 Colon cancer screening (ICD-10 - Z12.11) Repeat colonoscopy in 2031 Overall, Ruthie appears well. We did review the findings on her recent upper endoscopy. Based on that I advised her to simply continue the pantoprazole daily, or she can certainly just use it as needed. However, at this point it sounds like she needs it daily to keep her symptoms of reflux in good control. We did review that watching her diet, eating smaller meals, not eating close to bedtime, and keeping the diabetes in good control will help with her reflux symptoms. I do not think she has any significant gastroparesis but depending upon her clinical course we could always obtain a gastric emptying study if need be if the reflux was to significantly worsen. I do not think she would need any further follow-up endoscopies given the negative biopsies for Hendrickson's esophagus. In regard to the fatty liver this seems to be very stable and not particularly problematic at this time given the basically normal liver profile over the summer, negative CT scan, and her good clinical appearance. Again, we did review that losing weight, eating a healthy diet, and keeping the diabetes well controlled will be the best treatment for that. I do not think she requires a liver biopsy nor any specific follow-up of that on my part. I would recommend that she have at least a yearly liver profile and be referred back to see me if the LFTs were to become 2-3 times elevated. We did review that she should have a repeat colonoscopy in 2031 for a 10-year follow-up to her exam in 2021. At this point if Ruthie remains well she will see me on an as needed basis. I did advise her to certainly call if she has any problems or questions I can be of assistance with. Ruthie and her daughter were comfortable with this plan. Thank you again for allowing me to participate in Ruthie's care. I shall continue to keep you advised of her progress. Plan Of Treatment Future Test Test Name Order Date UPPER GI ENDOSCOPY 06/07/2024 Insurance Providers Payer Name Payer Address Payer Phone Subscriber Number Group Number Insured Name Patient Relationship to Insured Coverage Start Date Coverage End Date [facility] [address] Attn Claims JOHN Arora [id number] Ruthie Toussaint Self - patient is the insured Medical (General) History Medical History History ICD Code NIDDM High blood pressure Fibromyalgia Arthritis Stroke in 2009 due to aneurysm with surg debora-right side weakness Asthma-Sees Dr. Briggs Denies GA or renal disease Negative colonoscopy in 2021 Hyperlipidemia Depression Hospitalization in 2021 for [...] without any sign of splenomegaly nor ascites. GERD- Upper endoscopy in August 2024 revealed only a minimal hiatal hernia, minimal changes of reflux, biopsies negative for Hendrickson's esophagus, and some minimal evidence of gastric retention. Denies GA or renal disease Fatty liver with a negative liver workup in 2024. She had a normal CT scan of her liver in 2024 as well. Surgical History Surgery Date(Month/Year) 2 carpal tunnel surgeries each wrist Gallbladder Fractured coccyx 2 C-sections
--- OUTSIDE RECORDS SUMMARY | 2025-02-20 12:55 | XMS_ITS | Clinical Summary ---
Author Organization [facility] Address [address] [place] [address] Care Team Providers Care Cooker Meal Name Role Phone Unavailable Primary Care Provider [...]
--- OUTSIDE RECORDS SUMMARY | 2025-02-20 12:55 | XMS_ITS | Encounter Summary ---
Author Organization [employer] Address [address] [facility] 7t [place] [address] Care Team Providers Care Cable Swager Name Role Phone Nikki James MD Primary Care Provider [phone] Mary Rain PharmD Unavailable Gerson Briggs Unavailable [phone] Clemente Babatunde Babb DO Unavailable [phone] Delaney Cantu Unavailable Uzair Ruiz MD Unavailable Encounter Details Date Type Department Care Team (Late st Contact Info) Description 04/21/2022 Orders Only [facility] [address] [place], [place] [phone] Lisa Navarro RN Social History Tobacco Use [...] 1:00 PM EST Nurse Only [facility] [address] [place], [place] [phone] documented as of this encounter Visit Diagnoses Not on filedocumented in this encounter Care Teams Cable Swager Relationship Specialty Start Date End Date Nikki James MD [address] [place], [place] [phone] PCP - General Family Medicine 04/24/18 Mary Rain PharmD [address] [place] [address] Pharmacist Internal Medicine 01/26/23 Gerson Briggs [address] [place] [address] Pulmonary Disease 04/08/24 Babatunde Cornejo DO [address] [place] [address] Endocrinology 04/08/24 Delaney Cantu [address] [place] [address] Dermatology 04/08/24 Uzair Ruiz MD [address] [place] [address] Gastroenterology 09/05/24 Dr. Bravo [facility] [address] [place] [address] Orthopaedic Surgery 05/15/24 documented as of this encounter
[2025-02-20 14:21] LABS: Alanine Aminotransferase 23 U/L (0-31); Albumin Level 4.3 g/dL (3.5-5.0); Alkaline Phosphatase 73 U/L (39-117); Anion Gap 14 (12-20); Aspartate Amino Transferase 37 U/L (5-31); Blood Urea Nitrogen 19 mg/dL (9-16); Calcium 9.7 mg/dL (8.4-10.2); Carbon Dioxide 28 mmol/L (22-29); Chloride 108 mmol/L (96-108); Cholesterol 148 mg/dL (<200); Estimated Glomerular Filt Rate > 60; HDL Cholesterol 50 mg/dL (>40); Potassium 4.2 mmol/L (3.3-5.1); Sodium 146 mmol/L (135-145); Total Protein 7.5 g/dL (6.5-8.0); Triglycerides 105 mg/dL (<150)
[2025-02-20 14:51] LABS: Folate 10.8 ng/mL (> or = 4.0); Vitamin B12 334 pg/mL (200-900)
== END 2025-02-20 10:37 | disposition home or self-care (01) ==
LOC: HO.HHCL 10:36
PROVIDERS: PCP Family Medicine; Visit Provider Family Medicine
DX: E11.9 Type 2 diabetes mellitus without complications (principal); E53.8 Deficiency of other specified B group vitamins; Z79.4 Long term (current) use of insulin; L68.0 Hirsutism
CPT/HCPCS: 36415; 80048; 80061; 80076; 82043; 82570; 82607; 82746; 84403

== ENCOUNTER 2025-03-17 11:37 | Outpatient (AMB) | payer OTHER, SELFPAY ==
--- OUTSIDE RECORDS SUMMARY | 2025-03-13 13:00 | XMS_ITS | Encounter Summary ---
Author Organization [employer] Address [address] [facility] 7t [place] [address] Care Team Providers Care Packager Name Role Phone Nikki James MD Primary Care Provider [phone] Mary Rain PharmD Unavailable Gerson Briggs Unavailable [phone] Babatunde Cornejo DO Unavailable [phone] Delaney Cantu Unavailable Uzair Ruiz MD Unavailable Reason for Visit * Reason Comments Injections Encounter Details Date Type Department Care Team (Late st Contact Info) Description 03/13/2025 1:00 PM EST Nurse Only [facility] [address] [place] [address] Ivanna White, MAYA B12 deficiency Social History Tobacco Use Types Packs/Day Years [...] Progress Notes * Ivanna White RN - 03/13/2025 1:00 PM EST SUBJECTIVE: Ruthie Toussaint is a 59 y.o. year old female who presents for Injections Preferred language for medical information: [place] Waitress/Waiter needed: No, speaks some Turkish Standing Ordered verified: Yes, standing order expiration date: 10/19/24 Ruthie Toussaint denies any difficulties with previous injection that was received. Allergies[1] OBJECTIVE: B-12 injection given in right deltoid, medication was tolerated well. ASSESSMENT: Vitamin B12 deficiency PLAN: Ruthie Toussaint will return for next injection on 04/14/2025. [x] Advised to monitor injection site for any increased redness or swelling [x] Next appointment given Ruthie Toussaint agrees with plan of care and verbalized understanding of instructions/education. Ivanna White RN [1] Allergies Allergen Reactions Amoxicillin Anaphylaxis Beta Adrenergic Blockers Shortness of breath Penicillins Anaphylaxis Iodinated Contrast Media Morphine Headache documented in this encounter Plan of Treatment Upcoming Encounters Date Type Department Care Team (Late st Contact Info) Description 04/14/2025 1:00 PM EST Nurse Only [facility] [address] [place] [address] documented as of this encounter Goals Goal Patient Goal Type Associated Problems Recent Progress Patient-Stated? Author Blood Pressure < 140/90 Blood Pressure 110/66(2024 9:39 AM EDT) No Mary Forbes PharmD Hemoglobin A1c < 7 Result Component 6.4( 12:00 AM EDT) No Mary Forbes PharmD Help patients manage their type 2 diabetes Care Plan Help patients manage their type 2 diabetes No Ivanna White RN Weekly blood pressure task Care Plan Weekly blood pressure task No Ivanna White RN Help patients manage their type 2 diabetes Care Plan Help patients manage their type 2 diabetes Ivanna Johnston RN Patient has chronic kidney disease Care Plan Patient has chronic kidney disease Ivanna Johnston RN Weekly blood pressure task Care Plan Weekly blood pressure task Ivanna Johnston RN Patient has chronic kidney disease Care Plan Patient has chronic kidney disease No Ivanna White RN documented as of this encounter Visit Diagnoses Diagnosis B12 deficiency documented in this encounter Administered Medications Active Administered Medications - up to 3 most recent administrations Medication Order MAR Action Action Date Dose Rate Site cyanocobalamin (Vitamin B-12) injection 1,000 mcg 1,000 mcg, Intramuscular, Weekly, First dose on 10/19/24 at 0900, Inject 1ml Im weekly x 4 weeks then 1ml monthly x 12 months. Thank you.Indications:B12 deficiency Given 03/13/2025 1:08 PM EST 1,000 mcg Right Deltoid Given 02/10/2025 9:57 AM EDT 1,000 mcg Ri ght Deltoid Given 01/03/2025 2:00 PM EDT 1,000 mcg Le ft Deltoid documented in this encounter Additional Health Concerns Active Problems Noted Date Diagnosed Date Help patients manage their type 2 diabetes 03/13 Weekly blood pressure task 03/13/2025 Help patients manage their type 2 diabetes 03/13 Patient has chronic kidney disease 03/13/2025 Weekly blood pressure task 03/13/2025 Patient has chronic kidney disease 03/13/2025 Assessment Noted Time PHQ-9 Depression Total Score: 10 025 9:40 AM EDT documented as of this encounter Care Teams Packager Relationship Specialty Start Date End Date Nikki James MD [address] [place] [address] PCP - General Family Medicine 04/24/18 Mary Rain, ElishaD [address] [place] [address] Pharmacist Internal Medicine 01/26/23 Gerson Briggs [address] [place] [address] Pulmonary Disease 04/08/24 Babatunde Cornejo DO [address] [place] [address] Endocrinology 04/08/24 Delaney Cantu [address] [place] [address] Dermatology 04/08/24 Uzair Ruiz MD [address] [place] [address] Gastroenterology 09/05/24 Dr. Bravo [facility] [address] [place] [address] Orthopaedic Surgery 05/15/24 documented as of this encounter
--- OUTSIDE RECORDS SUMMARY | 2025-03-17 15:27 | XMS_ITS | Encounter Summary ---
Author Organization [employer] Address [address] [facility] 7t [place] [address] Care Team Providers Care Stem Setter Name Role Phone Nikki James MD Primary Care Provider [phone] Mary Rain PharmD Unavailable Gerson Briggs Unavailable [phone] Babatunde Cornejo DO Unavailable [phone] Delaney Cantu Unavailable Uzair Ruiz MD Unavailable Encounter Details Date Type Department Care Team (Late st Contact Info) Description 11/10/2022 Orders Only [facility] [address] [place], [place] [phone] Lisbeth Taylor LPN Social History Tobacco Use [...] Description 04/14/2025 1:00 PM EST Nurse Only [facility] [address] [place], [place] [phone] documented as of this encounter Visit Diagnoses Not on filedocumented in this encounter Care Teams Stem Setter Relationship Specialty Start Date End Date Nikki James MD [address] [place], [place] [phone] PCP - General Family Medicine 04/24/18 Mary Rain, Kisha [address] [place] [address] Pharmacist Internal Medicine 01/26/23 Gerson Briggs [address] [place] [address] Pulmonary Disease 04/08/24 Babatunde Cornejo DO [address] [place] [address] Endocrinology 04/08/24 Delaney Cantu [address] [place] [address] Dermatology 04/08/24 Uzair Ruiz MD [address] [place] [address] Gastroenterology 09/05/24 Dr. Bravo [facility] [address] [place] [address] Orthopaedic Surgery 05/15/24 documented as of this encounter
--- OUTSIDE RECORDS SUMMARY | 2025-03-17 15:27 | XMS_ITS | Encounter Summary ---
Author Organization [employer] Address [address] [facility] [address] [place] [address] Care Team Providers Care Sailmaker Name Role Phone Nikki James MD Primary Care Provider [phone] Mary Rain PharmD Unavailable Gerson Briggs Unavailable [phone] Clemente Babatunde Holley DO Unavailable [phone] Delaney Cantu Unavailable Uzair Ruiz MD Unavailable Reason for Visit * Reason Comments Med Refill Encounter Details Date Type Department Care Team (Late st Contact Info) Description 06/24/2024 Refill [facility] MEDICINE [address] [place], [place] [phone] Nikki James MD [address] [place], [place] [phone] Type 2 diabetes mellitus without complication, without long-term current use of insulin ([facility]) Social History Tobacco Use Types [...] Description 04/14/2025 1:00 PM EST Nurse Only [facility] MEDICINE [address] [place] [id number] documented as of this encounter Goals Goal [...] documented as of this encounter Care Teams Sailmaker Relationship Specialty Start Date End Date Nikki James MD [address] [place] [address] PCP - General Family Medicine 04/24/18 Mary Rain PharmD [address] [place] [address] Pharmacist Internal Medicine 01/26/23 Gerson Briggs [address] [place] [address] Pulmonary Disease 04/08/24 Babatunde Cornejo DO [address] [place] [address] Endocrinology 04/08/24 Delaney Cantu [address] [place] [address] Dermatology 04/08/24 Uzair Ruiz MD [address] [place] [address] Gastroenterology 09/05/24 Dr. Bravo [facility] Orthopedics [address] [place] [id number] Orthopaedic Surgery 05/15/24 documented as of this encounter
--- OUTSIDE RECORDS SUMMARY | 2025-03-17 15:27 | XMS_ITS | Encounter Summary ---
Author Organization [employer] Address [address] [facility] 7[address] [place] [address] Care Team Providers Care Adult Day Care Worker Name Role Phone Nikki James MD Primary Care Provider [phone] Mary Rain PharmD Unavailable Gerson Briggs Unavailable [phone] Babatunde Cornejo DO Unavailable [phone] Delaney Cantu Unavailable Uzair Ruiz MD Unavailable Reason for Visit * Reason Comments Med Refill Encounter Details Date Type Department Care Team (Late st Contact Info) Description 03/06/2025 Refill [facility] MEDICINE [address] [place], [place] [phone] Nikki James MD [address] [place], [place] [phone] Primary hypertension Social History Tobacco Use Types Packs/Day Years [...] Description 04/14/2025 1:00 PM EST Nurse Only [address] [address] documented as of this encounter Goals Goal Patient Goal Type Associated Problems Recent Progress Patient-Stated? Author Blood Pressure < 140/90 Blood Pressure 110/66(2024 9:39 AM EDT) No Piers-Gambl e, Mary, PharmD Hemoglobin A1c < 7 Result Component 6.4( 12:00 AM EDT) No Piers-Gambl e, Mary, PharmD documented as of this encounter Visit Diagnoses Diagnosis Primary hypertension Unspecified essential hypertension documented in this encounter Additional Health Concerns Assessment Noted Time PHQ-9 Depression Total Score: 10 025 9:40 AM EDT documented as of this encounter Care Teams Adult Day Care Worker Relationship Specialty Start Date End Date Nikki James MD [address] [place] [address] PCP - General Family Medicine 04/24/18 Mary Rain PharmD [address] [place] [address] Pharmacist Internal Medicine 01/26/23 Gerson Briggs [address] [place] [address] Pulmonary Disease 04/08/24 Babatunde Cornejo DO [address] [place] [address] Endocrinology 04/08/24 Delaney Cantu [address] [place] [address] Dermatology 04/08/24 Uzair Ruiz MD [address] [place] [address] Gastroenterology 09/05/[address] [facility] Orthopedics [address] [place] [id number] Orthopaedic Surgery 05/15/24 documented as of this encounter
--- OUTSIDE RECORDS SUMMARY | 2025-03-17 15:27 | XMS_ITS | Clinical Summary ---
Author Organization [employer] Address [address] [facility] [address] [place] [address] Care Team Providers Care Bed Spring Maker Name Role Phone Nikki James MD Primary Care Provider [phone] Mary Rain PharmD Unavailable Gerson Briggs Unavailable [phone] Babatunde Cornejo DO Unavailable [phone] Delaney Cantu Unavailable Uzair Ruiz MD [...] (Kenalog) 0.1 % creamIndications :Dermatitis 024 Active Budeson-Glycopyr rol-Formoterol (Breztri Aerosphere) 160-9-4.8 [...] complication, with long-term current use of insulin ([facility]) Inject under the skin. Active Budeson-Glycopyr rol-Formoterol [...] per day. 90 capsule 3 025 Active lisinopril 20 MG tabletIndication s:Primary hypertension TAKE 1 TABLET(20 MG) BY MOUTH DAILY 90 tablet 3 025 Active aspirin (Aspirin Low Dose) 81 MG EC tabletIndication s:Abnormal echocardiogram TAKE 1 TABLET BY MOUTH EVERY DAY 90 tablet 3 025 Active ciclesonide (Alvesco) 160 MCG/ACT inhalerIndicatio ns:Moderate persistent asthma without complication Inhale. 021 2024 Discontinued(M ed list cleanup (will not trigger notification to Pharmacy)) Anoro Ellipta 62.5-25 MCG/ACT aerosol powderIndication s:Moderate persistent asthma without complication INHALE 1 PUFF BY MOUTH DAILY 024 2024 Discontinued(M ed list cleanup (will not trigger notification to Pharmacy)) lisinopril 20 MG tabletIndication s:Primary hypertension Take 1 tablet (20 mg) by mouth Once per day. 90 tablet 3 024 2024 Discontinued empagliflozin (Jardiance) 10 MGIndications:Ty pe 2 diabetes [...] complication, without long-term current use of insulin ([facility]) Use as directed to monitor glucose ever 8 hours. Replace sensor every 14 days. 2 each 024 2024 Discontinued(M ed list cleanup (will not trigger notification to Pharmacy)) glucose blood (FreeStyle Precision Reza Test) test stripIndications :Type 2 diabetes mellitus without complication, without long-term current use of insulin ([facility]) Test blood sugar q 8 hours 100 each 12 024 2024 Discontinued(M ed list cleanup (will not trigger notification to Pharmacy)) Aspirin Low Dose 81 MG EC tabletIndication s:Abnormal echocardiogram TAKE 1 TABLET BY MOUTH EVERY DAY 90 tablet 3 024 2024 Discontinued semaglutide (Ozempic, 0.25 or 0.5 MG/DOSE,) 2 [...] notification to Pharmacy)) Lancets (OneTouch Delica Plus [id number]) miscIndications: Type 2 diabetes mellitus without complication, without long-term current use of insulin (HCC) USE TO TEST BLOOD SUGAR ONCE A DAY 100 each 11 025 2024 Discontinued(M ed list cleanup (will not trigger notification to Pharmacy)) glucose blood test strip USE TO TEST BLOOD SUGAR ONCE A DAY. Freestyle glucometer 100 each 12 025 2024 Discontinued(M ed list cleanup (will not trigger notification to Pharmacy)) glucose blood (FREESTYLE LITE) test stripIndications :Type 2 diabetes mellitus without complication, without long-term current use of insulin (HCC) Use bid. Dx diabetes 60 each 025 2024 Discontinued(M ed list cleanup (will not trigger notification to Pharmacy)) Hospital, Clinic, or Other Facility Administered Medication Ordered Dose Route Frequency Start Date End Date Status cyanocobalamin (Vitamin B-12) injection 1,000 mcgIndications:B12 deficiency 1000 mcg IM Weekly 10/19/2024 Active Active Problems Patient Care Coordination No te Formatting of this note migh t be different from the original. Enrolled in [facility] DM clinic with Elisha TejedaD, [facility] Business Analyst Consultant: Devi Explosive Operator Supervisor Agency: [employer] [facility] Problem Noted Date Diagnosed Date B12 [...] 05/03/[address] Bravo of [facility] Class 2 drug-induced obesity with body [...] considered to be 1.7 [facility] 2.4 [facility] -f/u in 2 months. -10/16/24 reports doing [...] considered to be 1.7 or 2.4 mg [facility]. -f/u in 2 months. Dermatitis 12/28/2023 Thyroid [...] least three times. She was followed by [facility] and was last seen for her final visit Feb 2011. Her care was transferred to [facility] who she sees for [...] least three times. She was followed by [facility] and was last seen for her final visit Feb 2011. Her care was transferred to [facility] who she sees for [...] least three times. She was followed by [facility] and was last seen for her final visit Feb 2011. Her care was transferred to [facility] who she sees for her chronic headaches and last saw Dec 2014. Topamax is 50 bid. She is now on gabapentin 100mg bid. Other specified health status 01/11/2023 Overview (02/20/2025): -next physical exam due after 02/20/26 -followed by Dr. García Wei of [facility] -dental home is [facility] [place] -filed healthcare proxy on 07/17/2023 Assessment & Plan (02/20/2025 10:41 AM EDT): -next physical exam due after 02/20/26 -followed by Dr. García Wei of [facility] -dental home is [facility] [place] -filed healthcare proxy on 07/17/2023 Assessment & Plan (02/12/2024 10:51 AM EDT): -next physical exam due after 02/11/25 -followed by Dr. García Wei of [facility] -dental home is [facility] [place] -Filed healthcare proxy on 07/17/2023 Assessment & [...] and psychiatrist. No suicidial or homacidial ideation. Type 2 diabetes mellitus wit hout complication, without long-term current use of insulin 03/30/2012 Overview (02/20/2025): Diabetes is controlled. Follows with Endocrinology, Dr. Cornejo Lab Results Component Value Date HGBA1C 6.4 11/06/2024 HGBA1C 6.4 (H) 11/04/2024 HGBA1C 6.1 (A) 10/16/2024 Lab Results Component Value Date CREATININE 0.79 02/12/2024 EGFR >60 02/12/2024 MICROALBCREU 6.9 02/12/2024 MICROALBCREU 4.5 01/16/2023 LDLCHOLCAL 86 02/12/2024 -Justus/Arb: lisinopril 20mg -Statin therapy: atorvastatin 40mg -Diabetic eye exam: referred to [facility] 10/16/24 -Diabetic foot exam: [...] increase to 1mg subcutaneously qweek for weeks 9-, Increase to 1.7 mg subcutaneously q week weeks 13-16, increase tp 2.4mg subcutaneously q week If dose is not tolerated consider delaying dose increase for 4 weeks. Treatment doses considered to be 1.7 or 2.4 [facility] -follow-up in 2 months. Assessment & Plan [...] atorvastatin 40mg -Diabetic eye exam: referred to [facility] 10/16/24 -Diabetic foot exam: [...] considered to be 1.7 or 2.4 mg [facility]. -follow-up in 2 months. Orders: POCT glucose manually resulted POCT glycosylated hemoglobin (Hgb A1c) Albumin, Random Urine W/Creatinine; Future Hepatic Function Panel; Future Lipid Panel, Standard; Future Basic Metabolic Panel; Future Assessment & Plan (10/16/2024 11:46 AM EDT): See above plan. Orders: Lancets (OneTouch Delica Plus [id number]) misc; USE TO TEST BLOOD SUGAR ONCE [...] atorvastatin 40mg -Diabetic eye exam: referred to [facility] 10/16/24 -Diabetic foot exam: [...] increase to 1mg subcutaneously qweek for weeks 9-, Increase to 1.7 mg subcutaneously q week weeks -16, increase tp 2.4mg subcutaneously q week If dose is not tolerated consider delaying dose increase for 4 weeks. Treatment doses considered to be 1.7 or 2.4 [facility]. -follow-up in 2 months. Orders: POCT glycosylated [...] considered to be 1.7 or 2.4 mg [facility]. -follow-up in 2 months. Assessment & Plan [...] face and neck, under the care of Music Historian Dr. Cantu. Last note available from Dr [...] 01/27/2014 02/13/2025 Benign neoplasm of cerebral meninges ([facility]/HCC) 01/27/2014 01/11/2023 Obesity due to excess calories 01/27/2014 02/20/2025 Carpal tunnel syndrome 03/30/201202/13 Chronic sinusitis 03/30/2012 02/13/2025 Disuse syndrome 03/30/2012 01/11/2023 Dizziness 03/30/2012 10/21/2023 Ventricular hemorrhage 03/30/201201/11 Encounters Date Type Department Care Team Description 03/13/2025 1:00 PM EST Nurse Only [facility] [address] [place] [address] Ivanna White, MAYA B12 deficiency 03/13/2025 Travel 03/06/2025 Refill [facility] [address] [place] [address] Nikki James MD Primary hypertension 02/26/2025 Refill [facility] [address] [place] [address] Nikki James MD Abnormal echocardiogram 02/21/2025 Refill [facility] [address] [place] [address] Nikki James MD Primary hypertension 02/21/2025 Telephone [facility] [address] [place] [address] Nikki James MD Referral 02/20/2025 9:15 AM EDT Office Visit [facility] [address] [place] [address] Nikki James MD Type 2 diabetes mellitus without complication, with long-term current use of insulin ([facility]) (Primary Dx); Other specified health status; Moderate persistent asthma without complication; B12 deficiency; Class 2 drug-induced obesity with serious comorbidity and body mass index (BMI) of 37.0 to 37.9 in adult; Transaminitis; Depression, recurrent ([facility]/HCC); Primary hypertension; Hirsutism; Encounter for immunization; Vitamin D deficiency; Raynaud's phenomenon without gangrene; Arthralgia, unspecified joint 02/20/2025 Travel 02/19/[address] [address] Nikki James MD chart prep 02/12/2025 Patient Outreach [address] [address] Nikki James MD Pre-visit Planning (SDOH screening was completed on 10/16/2024) 02/10/2025 9:30 AM EDT Nurse Only [address] [address] Ivanna White RN Encounter for immunization 02/10/2025 Travel 01/06/2025 Orders Only [address] [address] Nikki James MD VONNIE positive (Primary Dx); Arthralgia, unspecified joint 01/03/2025 2:00 PM EDT Clinical Support [address] [address] Ivanna White, RN B12 deficiency 01/03/[address] [address] Nikki James MD Referral 01/03/2025 Travel from Last 3 Months Immunizations Immunization Administration [...] Description 04/14/2025 1:00 PM EST Nurse Only [facility] [address] [place] [address] Health Maintenance Due Date Last Done Comments CT Colonography 1966 FIT DNA/Cologuard 1965 FIT 1965 FOBT 1965 Sigmoidoscopy 1965 RSV Patients and Patients Aged 60 years or older (1 - Risk 50-74 years 1-dose series) 2016 Pap Smear 12/27/2019 12/26/2014 COVID-19 Vaccine ( season) 2024 02/12/2024, 12/08/2020, 11/17/2020 Cervical Cancer Screening 01/22/2025 HPV/Cotest 01/22/2025 01/23/2020, 01/23/2020 Diabetes: Hemoglobin A1C 05/09/2025 025, 11/04/2024, 10/16/2024, Additional history exists Pneumococcal Vaccine: 50+ Years (3 of 3 - PCV20 or PCV21) 06/20/2025 06/20/2020, 02/07/2016, 02/07/2016, Additional history exists Eye Exam 06/28/2025 06/29/2023, 10/2023, 06/29/2023, Additional history exists Depression Monitoring 08/21/2025 02/20/2025, 025 Disability Screening 10/16/2025 10/16/2024 SDOH Screening 10/16/2025 10/16/2024 Alcohol/Substance Use Screening 02/20/2026 02/20/2025 Diabetes: Foot Exam 02/20/2026 02/20/2025, 02/20/2025, 02/20/2025, Additional history exists Diabetes: Urine Protein Screening 02/20/2026 02/20/2025, 02/12/2024, 01/16/2023, Additional history exists Lipid Panel 02/20/2026 02/20/2025, 0709/2024, 02/12/2024, Additional history exists Tobacco Screening 02/20/2026 02/20/2025 Mammogram 04/05/2026 04/05/2024, 11/0 05/2022, 11/06/2020, Additional history exists DTaP/Tdap/Td Vaccines (3 - Td or Tdap) 02/15/2027 02/15/2017, 10/14/2013, 01/03/2000 Colonoscopy 09/16/2027 09/15/2017 Colorectal Cancer Screening 09/16/2027 Hepatitis B Vaccines Completed 05/22/2006, 09/20/2005, 08/19/2005 HIV Screening Completed 05/31/2021 Zoster Vaccines Completed 10/22/2021, 08/20/2021 Hepatitis C Screening Completed 10/16/2024, 019 Influenza Vaccine Completed 02/10/2025, , 01/18/2023, Additional history exists Hepatitis A Vaccines Aged Out 02/20/2025, 09/23/19 18 No longer eligible based on patient's age to complete this topic HIB Vaccines Aged Out No longer eligi [...] type 2 diabetes No Ivanna White RN Patient has chronic kidney disease Care Plan Patient has chronic kidney disease No Ivanna White RN Weekly blood pressure task Care Plan Weekly blood pressure task No Ivanna White RN Patient has chronic kidney disease Care Plan Patient has chronic kidney disease No Ivanna White RN Procedures Procedure Name Priority Date/Time Associated Diagnosis Comments ALBUMIN, RANDOM URINE W/CREATININE Routine 02/20/2025 10:41 AM EDT Type 2 diabetes mellitus without complication, with long-term current use of insulin (HCC) TESTOSTERONE, TOTAL, MALES (ADULT), IA Routine 02/20/2025 10:39 AM EDT Hirsutism VITAMIN B12/FOLATE, SERUM PANEL Routine 02/20/2025 10:39 AM EDT B12 deficiency BASIC METABOLIC PANEL Routine 02/20/2025 10:39 AM EDT Type 2 diabetes mellitus without complication, with long-term current use of insulin (HCC) LIPID PANEL, STANDARD Routine 02/20/2025 10:39 AM EDT Type 2 diabetes mellitus without complication, with long-term current use of insulin (HCC) HEPATIC FUNCTION PANEL Routine 10:39 AM EDT Type 2 diabetes mellitus without complication, with long-term current use of insulin (HCC) HEMOGLOBIN A1C Routine 11/06/2024 HEPATITIS PANEL, GENERAL [...] 10:41 AM EDT) Creatinine, Urine 109.20 mg/dL [facility] Microalbumin Urine 5.0 mg/L [facility] Microalbum Creatinine Ratio Ur 4.5 <30 ug/mg cr [facility] Comment:Albumin/Creatinine R atio Reference Ranges: Normal: < 30 ug/mg creatinine Microalbuminuria: 30 - 300 ug/mg creatinineClinical Albuminuria: > 300 ug/mg creatinine Urine 02/20/2025 10:4 1 AM EDT 02/20/2025 11:10 AM EDT Nikki James MD LAB URINE ORDERABLES Final Result Performing Organization Address [facility] Co de Phone Number [facility] [address] [place] [phone] * Vitamin B12/Folate, Serum Panel (02/20/2025 10:39 AM EDT) Vitamin B12 334 200 - 900 pg/mL [facility] Comment:NORMAL 200-900 PG/ML INDETERMINATE 160-199 PG/ML DEFICIENT < 160 PG/ML Folate 10.8 > or = 4.0 ng/mL [facility] Comment:Reference Values:> o r = 4.0 ng/mL< 4.0 ng/mL suggests folate deficiency Methotrexate, aminopterin and folinic acid(leucovorin) are chemotherapeutic agents whose molecularstructures are similar to folate; therefore, the Architectfolate assay cannot be used for patients using these drugs. Blood Venous blood specimen / Unknown 02/20/2025 10:39 AM EDT 02/20/2025 1:04 PM EDT Nikki James MD LAB BLOOD ORDERABLES Final Result Performing Organization Address [facility] Co de Phone Number [facility] [address] [place] [address] [phone] * Testosterone, Total, males (Adult), IA (02/20/2025 10:39 AM EDT) Testosterone, Total 24 2 - 45 ng/dL [facility] Comment:For additional infor lillie, please refer tohttp://education.Cedexis.com/faq/UezvmEqxkdmsrnctjUIOVBCDWN550(This link is being provided for informational/educational purposes only.)This test was developed and its analytical performancecharacteristics have been determined by [employer] [place], [place]. It hasnot been cleared or approved by the U.S. Food and DrugAdministration. This assay has been validated pursuantto the CLIA regulations and is used for clinicalpurposes.THIS TEST WAS PERFORMED AT:[facility] SystemsE[facility]ENTERY[address] [place] [address]HGSHECWAMBROSIO BISHOP MD,PHD Blood Venous blood specimen / Unknown 02/20/2025 10:39 AM EDT 02/20/2025 1:04 PM EDT Nikki James MD LAB BLOOD ORDERABLES Final Result Performing Organization Address [facility]/ZIP Co de Phone Number [facility] [address] [place] [phone] * (ABNORMAL) Hepatic Function Panel (02/20/2025 10:39 AM EDT) Bilirubin, Total 0.5 0.0 - 1.0 mg/dL [facility] Bilirubin, Direct 0.2 0.0 - 0.5 mg/dL [facility] Aspartate Amino Transferase 37(H) 5 - 31 U/L [facility] Alanine Aminotransferase 23 0 - 31 U/L [facility] Total Protein 7.5 6.5 - 8.0 g/dL [facility] Albumin Level 4.3 3.5 - 5.0 g/dL [facility] Alkaline Phosphatase 73 39 - 117 U/L [facility] Blood Venous blood specimen / Unknown 02/20/2025 10:39 AM EDT 02/20/2025 1:04 PM EDT Nikki James MD LAB BLOOD ORDERABLES Final Result Performing Organization Address City/[facility]/ZIP Co de Phone Number [facility] [address] [place] [phone] [phone] * Lipid Panel, Standard (02/20/2025 10:39 AM EDT) Triglycerides 105 <150 mg/dL [facility] Comment:Desirable Triglyceri de: less than 150 mg/dLBorderline High Triglyceride 150-199 mg/dLHigh Triglyceride: 200-499 mg/dLVery High Triglyceride: greater than or equal to 5OO mg/dL Cholesterol 148 <200 mg/dL [facility] Comment:Desirable Cholestero l: less than 200 mg/dLBorderline High Cholesterol: 200-239 mg/dLHigh Cholesterol: greater than 239 mg/dL LDL Cholesterol Calculated 77 <100 mg/dL [facility] Comment:Desirable LDL: less than 100 mg/dLNear Optimal/Above Optimal LDL: 110- 129 mg/dLBorderline High LDL: 130-159 mg/dLHigh LDL: 160-189 mg/dLVery High LDL: greater than or equal to 190 mg/dL HDL Cholesterol 50 >40 mg/dL [facility] Comment:Desirable HDL: great er than 40 mg/dL Note: This HDL assay may give artificially low results in patients with liver disease. Blood Venous blood specimen / Unknown 02/20/2025 10:39 AM EDT 02/20/2025 1:04 PM EDT us Nikki James MD LAB BLOOD ORDERABLES Final Result [facility] [address] [place] [phone] * (ABNORMAL) Basic Metabolic Panel (02/20/2025 10:39 AM EDT) Sodium 146(H) 135 - 145 mmol/L [facility] Potassium 4.2 3.3 - 5.1 mmol/L [facility] Chloride 108 96 - 108 mmol/L [facility] Carbon Dioxide 28 22 - 29 mmol/L [facility] Anion Gap 14 12 - 20 [facility] Urea Nitrogen (BUN) 19(H) 9 - 16 mg/dL [facility] Creatinine, Serum 0.73 0.5 - 1.4 mg/dL [facility] Estimated Glomerular Filt Rate >60 [facility] Comment:Chronic Kidney Disea se: Estimated GFR < 60 mL/min/1.18f8Adknon Kidney Disease: Estimated GFR < 15 mL/min/1.73m2 Glucose 81 60 - 115 mg/dL [facility] Calcium 9.7 8.4 - 10.2 mg/dL [facility] Blood Venous blood specimen / Unknown 02/20/2025 10:39 AM EDT 02/20/2025 1:04 PM EDT Nikki James MD LAB BLOOD ORDERABLES Final Result [facility] [address] [place] [phone] * Hemoglobin A1c (11/06/2024) Hemoglobin A1c 6.4 Blood Venous blood specimen / Unknown Jose Gardner MD LAB BLOOD ORDERABLES Ndaeen l Result * Hepatitis Panel, General (10/16/2024 11:45 AM EDT) Hepatitis A IgM Nonreactive Nonreactive [facility] Comment:IgM antibodies to NICOLAS V not detected; does not exclude earlyacute or recovered HAV infection. ~Hepatitis B Surface Antibody GRAYZONE Nonreactive [facility] Comment:GRAYZONE: 8.00 mIU/m L TO 11.99 mIU/mLTHE IMMUNE STATUS OF THE INDIVIDUAL SHOULD BE FURTHERASSESSED BY CONSIDERING OTHER FACTORS, SUCH CLINICALSTATUS, FOLLOW-UP TESTING, ASSOCIATED RISK FACTORS, AND THEUSE OF ADDITIONAL DIAGNOSTIC INFORMATION. Hepatitis B Core Antibody Nonreactive Nonreactive [facility] Hepatitis C Antibody Nonreactive Nonreactive [facility] Comment:Antibodies to HCV no t detected; does not exclude early acuteHCV infection. Hepatitis B Surface Ag Negative Negative [facility] Blood Venous blood specimen / Unknown 10/16/2024 11:45 AM EDT 10/16/2024 1:20 PM EDT Nikki James MD LAB BLOOD ORDERABLES Final Result [facility] [address] [place] [address] [phone] * BI Mammogram Screening Tomosynthesis Bilateral (04/05/2024 1:00 PM EST) Anatomical Region Laterality Modality Breast Bilateral Mammography 04/05/2024 1:00 PM EST Narrative 04/15/2024 3:59 PM EST [address] [place] [address] Mammography Report Signed Patient: Ruthie Toussaint MR#: [id number] 6 : 1965 Acct:[id number] Age/Sex: 58 / F ADM Date: 04/05/24 Loc: HO.MAMMO Attending Dr: Nikki James MD Ordering Physician: Nikki James MD Results: 1N egative Date of Service: 04/05/24 Follow Up: 1 Year From Orig [facility] Mammogram Procedure(s): MM tomosynthesis screening BI Accession Number(s): [id number] cc: Nikki James MD EXAMINATION: MM SCREENING [...] Connors DO Signed By: <Electronically signed by Micehlle Connors DO in OV> 04/15/24 1556 DD/ 1300 TD/TT: 04/05/24 1318 Cost Control Supervisor: Procedure Note Donotuseinterpreter, Image - 04/15/2024 [facility] [address] [place] [address] Mammography Report Signed Patient: Sameera Toussaint#: [id number] 6 : 1965Acct:[id number] Age/Sex: 58 / FADM Date: 04/05/24 Loc: HO.MAMMO Attending Dr: Nikki James MD Ordering Physician: Nikki James MDResults: 1N egative Date of Service: 04/05/24Follow Up: 1 Year From Orig inal Mammogram Procedure(s): MM tomosynthesis screening BI Accession Number(s): [id number] cc: Nikki James MD EXAMINATION: MM SCREENING [...] 04/15/24 1556 DD/ 1300 TD/TT: 04/05/24 1318 Cost Control Supervisor: Nikki James MD IMG BI PROCEDURES Final [...] purpose. For additional information please refer to http://education.Cedexis.Divesquare/faq/VDT067 (This link is being provided for informational/ educational purposes only.) The performance of this assay has not been clinically validated in patients less than 2 years old. 05/31/2021 1:02 PM EST Nikki James MD LAB BLOOD ORDERABLES Final Result Performing Organization Address City/State/[facility] Co de Phone Number [facility] [address] * HPV E6/E7 RFLX ESTEE 16 18/45 (01/23/2020 2:02 PM EDT) HPV 16 RNA [facility] HPV 18/45 RNA [facility] HPV E6 E7 ADD [facility] HPV mRNA E6/E7 Not Detected Not Detected [facility] Comment: This test was performed using the APTIMA HPV Assay ([employer] This assay detects E6/E7 viral messenger RNA (mRNA) from 14 high-risk HPV types (16,18,31,33,35,39,45,51,52,56,58,59,66,68). The analytical performance characteristics of this assay have been determined by [employer]. The modifications have not been cleared or approved by the FDA. This assay has been validated pursuant to the CLIA regulations and is used for clinical purposes. THIS TEST WAS PERFORMED AT: [employer] [address] [facility] [address],[place] [address] CASSIE VANCE MD 01/23/2020 2:02 PM EDT Jessica Grace HISTORICAL/NON ORDERABLE LABS Fi nal Result [facility] [address] * Colonoscopy (09/15/2017) Colonoscopy normal with Dr. Oliver Historical Provider HEALTH MAINTENANCE Final Result * Pap Smear (12/26/2014 12:00 AM EDT) Swab Historical Provider LAB CYTOLOGY ORDERABLES F inal Result Performing Organization Address City/[facility] Co de Phone Number IMAGING from Last 3 Months or Most Recently Relevant to Health Maintenance Additional Health Concerns Active Problems Noted Date Diagnosed Date Help patients manage their type 2 diabetes 03/13 Weekly blood pressure task 03/13/2025 Help patients manage their type 2 diabetes 03/13 Patient has chronic kidney disease 03/13/2025 Weekly blood pressure task 03/13/2025 Patient has chronic kidney disease 03/13/2025 Insurance [facility] < 65 [place] [id number] Advance Directives Documents on File Type Date Recorded Patient It Director Expl anation Advance Directives and Livin g Will 07/17/2023 Health Care Proxy Care Teams Bed Spring Maker Relationship Specialty Start Date End Date Catron, MD Nikki [address] [place] [address] PCP - General Family Medicine 04/24/18 Mary Rain PharmD [address] [place] [address] Pharmacist Internal Medicine 01/26/23 Gerson Briggs 5 [place] [address] Pulmonary Disease 04/08/24 Babatnude Cornejo DO 22 [place] [address] Endocrinology 04/08/24 Delaney Cantu [address] [address] Dermatology 04/08/24 Uzair Ruiz MD [address] [place] [address] Gastroenterology 09/05/24 Dr. Bravo [facility] Orthopedics [address] [place] [address] Orthopaedic Surgery 05/15/24
--- OUTSIDE RECORDS SUMMARY | 2025-03-17 15:27 | XMS_ITS | Encounter Summary ---
Author Organization [employer] Address 75 [facility] 7t [place] [address] Care Team Providers Care Pharmacy Sales Representative Name Role Phone Erika, Nikki REYNOSO Primary Care Provider +1- [phone] Mary Rain PharmD Unavailable Gerson Briggs Unavailable [phone] Babatunde Cornejo DO Unavailable [phone] Delaney Cantu Unavailable Uzair Ruiz MD Unavailable Reason for Referral * Consultation (STAT) - Closed Specialty Diagnoses / Procedures Referred By Conteliana t Referred To Contact Obstetrics and Gynecology Diagnoses Labial cyst Jenna Walter MD [address] [place] [address] Phone: tel: fax: [facility] Referral ID Status Reason Start Date Expiration Date V isits Requested Visits Authorized [id number] Closed Specialty Services Required 06/11/2024 06/11/2025 1 1 Encounter Details Date Type Department Care Team (Late st Contact Info) Description 06/11/2024 Orders Only [facility] MED[facility] [address] [place], [place] [phone] Jenna Walter MD [address] [place], [place] [phone] Labial cyst (Primary Dx) Social History Tobacco [...] Only [facility] MED[facility] [address] [place] [address] Scheduled Referrals Name Type Priority Associated Diagnoses [...] documented as of this encounter Care Teams Pharmacy Sales Representative Relationship Specialty Start Date End Date Nikki James MD [address] [place] [address] PCP - General Family Medicine 04/24/18 Mary Rain PharmD [address] [place] [address] Pharmacist Internal Medicine 01/26/23 Gerson Briggs 5 [place] [address] Pulmonary Disease 04/08/24 Babatunde Cornejo DO 22 [place] [address] Endocrinology 04/08/24 Delaney Cantu [address] [address] Dermatology 04/08/24 Uzair Ruiz MD [address] [place] [address] Gastroenterology 09/05/24 Dr. Bravo [facility] Orthopedics [address] [place] [address] Orthopaedic Surgery 05/15/24 documented as of this encounter
--- OUTSIDE RECORDS SUMMARY | 2025-03-17 15:27 | XMS_ITS | Clinical Summary ---
Author Organization [facility] Address [address] [place] [address] Care Team Providers Care Hospital Corpsman Name Role Phone Unavailable Primary Care Provider [...]
--- OUTSIDE RECORDS SUMMARY | 2025-03-17 15:27 | XMS_ITS | Encounter Summary ---
Author Organization [employer] Address 75 [facility] 7t [place] [address] Care Team Providers Care Collaborating Supervising Physician Name Role Phone Nikki James MD Primary Care Provider [phone]- [phone] Mary Rain PharmD Unavailable Gerson Briggs Unavailable [phone] Babatunde Cornejo DO Unavailable [phone] Delaney Cantu Unavailable Uzair Ruiz MD Unavailable Encounter Details Date Type Department Care Team (Late st Contact Info) Description 10/21/2023 Orders Only [facility] MEDICINE [address] [place], [place] [phone] Nikki James MD 230 [place], [place] [phone] Social History Tobacco Use Types Packs/Day Years [...] Description 04/14/2025 1:00 PM EST Nurse Only [facility] MEDICINE [address] [place] [address] documented as of this encounter Goals Goal [...] documented as of this encounter Care Teams Collaborating Supervising Physician Relationship Specialty Start Date End Date Nikki James MD [address] [place] [address] PCP - General Family Medicine 04/24/18 Mary Rain, PharmD [address] [place] [address] Pharmacist Internal Medicine 01/26/23 Gerson Briggs [address] [place] [address] Pulmonary Disease 04/08/24 Babatunde Cornejo DO 22 [place] [address] Endocrinology 04/08/24 Delaney Cantu 1176 [facility] 1ST [place] [address] Dermatology 04/08/24 Uzair Ruiz MD [address] [place] [address] [address] [place] [address] Gastroenterology 09/05/24 Dr. Bravo [facility] Orthopedics [address] [place] [address] Orthopaedic Surgery 05/15/24 documented as of this encounter
--- OUTSIDE RECORDS SUMMARY | 2025-03-17 15:27 | XMS_ITS | Encounter Summary ---
Author Organization [employer] Address 75 [facility] 7t [place] [address] Care Team Providers Care Computerized Mill Mill Recorder Name Role Phone Nikki James MD Primary Care Provider [phone]- [phone] Mary Rain PharmD Unavailable [phone] Gerosn Briggs Unavailable [phone] Clemente Babatunde Holley DO Unavailable [phone] Delaney Cantu Unavailable Uzair Ruiz MD Unavailable Reason for Visit * Reason Onset Date Comments Nurse Triage 11/18/2024 Encounter Details Date Type Department Care Team (Late st Contact Info) Description 11/18/2024 Telephone [facility] MEDICINE 230 [place], [place] [phone] Nikki James MD [address] [place], [place] [phone] Nurse Triage Social History Tobacco Use Types [...] Elliott RN - 11/18/2024 4:23 PM EDT [facility] noted from 11/16/2024 printed and will be scanned into pt chart under media. * Telephone Encounter - Lucero Mares RN - 11/18/2024 4:02 PM EDT No inspector type needed as this screen writer speaks Cape Verdean. Call returned to [facility] to triage belowat [phone]. Reports having nausea since Monday. Per pt seen at [facility] ER on Monday for sx. Ptwas given medications for nausea while at ER . Per pt was having constipation. Pt found to have colitis. Elevated WBC. Pt given abx, tylenol and ibuprofen . Pt is taking meds with food and drinking plenty of water. Pt offered to have instED see patient or seek DEC. Pt states called pharmacy and hasa med pendign but not sure if ondansetron. Pt agrees to take number for isntED PRN. Reviewed home care advise, ER precautions and reasons to call back. Will send to PCP to review and further advise if short course Rx for ondansetron can be sent for patient. Sent to team to obtain [facility] ER notes for provider review as well. [...] higher acuity questions Please contact pt at [phone]. (Cape Verdean Speaker) documented in this encounter Plan of Treatment Upcoming Encounters Date Type Department Care Team (Late st Contact Info) Description 04/14/2025 1:00 PM EST Nurse Only [facility] MEDICINE [address] [place] [address] documented as of this encounter Goals Goal Patient Goal Type Associated Problems Recent Progress Patient-Stated? Author Blood Pressure < 140/90 Blood Pressure 110/66(2024 9:39 AM EDT) No Dawoods-Roseline Mcadamssa, PharmD Hemoglobin A1c < 7 Result Component 6.4( 12:00 AM EDT) No Dawoods-Mary Mcaadms, PharmD documented as of this encounter Visit Diagnoses Not on filedocumented in this encounter Additional Health Concerns Assessment Noted Time PHQ-9 Depression Total Score: 12 024 10:49 AM EDT documented as of this encounter Care Teams Computerized Mill Mill Recorder Relationship Specialty Start Date End Date Nikki James MD [address] [place] [address] PCP - General Family Medicine 04/24/18 Mary Rain, ElishaD [address] [place] [address] Pharmacist Internal Medicine 01/26/23 Gerson Brigsg 5 [place] [address] Pulmonary Disease 04/08/24 Babatunde Cornejo DO 22 [place] [address] Endocrinology 04/08/24 Delaney Cantu [address] [address] Dermatology 04/08/24 Uzair Ruiz MD [address] [place] [address] Gastroenterology 09/05/24 Dr. Bravo [facility] Orthopedics [address] [facility] [address] Orthopaedic Surgery 05/15/24 documented as of this encounter
--- OUTSIDE RECORDS SUMMARY | 2025-03-17 15:27 | XMS_ITS | Encounter Summary ---
Author Organization [employer] Address 75 [facility] 7t [place] [address] Care Team Providers Care Manager Biologics Name Role Phone ErikaNikki melgar MD Primary Care Provider [phone]- [phone] Mary Rain PharmD Unavailable Gerson Briggs Unavailable [phone] Babatunde Cornejo DO Unavailable [phone] Delaney Cantu Unavailable Uzair Ruiz MD Unavailable Reason for Visit * Reason Comments Med Refill Encounter Details Date Type Department Care Team (Late st Contact Info) Description 04/25/2023 Refill [facility] [address] [place] [address] Pauline Berger MD [address] [place], [place] [phone] Social History Tobacco Use Types Packs/Day Years [...] 1:00 PM EST Nurse Only [facility] MEDICINE [address] [place] [address] documented as of this encounter Goals Goal [...] as of this encounter Care Teams Manager Biologics Relationship Specialty Start Date End Date Nikki James MD [address] [place] [address] PCP - General Family Medicine 04/24/18 Mary Rain, ElishaD [address] [place] [address] Pharmacist Internal Medicine 01/26/23 Gerson Briggs [address] [place] [address] [place] [address] Pulmonary Disease 04/08/24 Babatunde Cornejo DO 22 [place] [address] Endocrinology 04/08/24 Delaney Cantu [address] [address] Dermatology 04/08/24 Uzair Ruiz MD [address] [place] [address] Gastroenterology 09/05/24 Dr. Bravo [facility] Orthopedics 300 [facility] [address] Orthopaedic Surgery 05/15/24 documented as of this encounter
--- OUTSIDE RECORDS SUMMARY | 2025-03-17 15:27 | XMS_ITS | Clinical Summary ---
Author Organization [facility] Address 399 [facility] [address] [place] [address] Phone Care Team Providers Care Bobbin Cleaner Name Role Phone Nikki James MD Primary [...] Team Description 01/20/2025 Telephone [facility] [address] [place] [address] Babatunde Cornejo, DO alternatives to Ozempic (alternatives to Ozempic) 01/20/2025 Telephone [facility] [address] [place] [address] Babatunde Cornejo, DO Medication Refill (Jardiance refill) 12/21/2024 Refill [facility] [address] [place] [address] Babatunde Cornejo, DO Medication Refill from Last [...] 11:30 AM EST Office Visit [facility] [address] [place] [address] [phone] Babatunde Cornejo DO [address] [place] [address] [email or web address] Health Maintenance Due Date Last Done Comments [...] HEMOGLOBIN A1C 6.4(H) 4.3 - 5.8 % [facility] Blood 11/04/2024 2:51 PM EDT 11/04/2024 2:58 PM EDT Babatunde Cornejo DO LAB BLOOD BKR ORDERABLES Final R esult [facility] [address] [place] [address] * (ABNORMAL) Lipid panel (11/04/2024 2:51 PM EDT) HDL 55 mg/dL [facility] Comment: Interpretation <40 mg/dL: Low HDL cholesterol (major risk factor for CHD) Greater than or equal to 60 mg/dL: High HDL cholesterol ( negative risk factor for CHD) HDL - cholesterol is affected by a number of factors, e.g. smoking, excerise, hormones, sex and age. CHOLESTEROL 160 0 - 240 mg/dL [facility] TRIGLYCERIDES 84 30 - 160 mg/dL [facility] LDL 88 50 - 129 mg/dL [facility] Comment: LDL levels in terms of risk for coronary heart disease: <100 mg/dL: Optimal 100-129 mg/dL: Near or above optimal 130-159 mg/dL: Borderline high 160-189 mg/dL: High >190 mg/dL: Very High CARDIAC RISK RATIO 2.9(L) 3.3 - 4.4 C [facility] Blood 11/04/2024 2:51 PM EDT 11/04/2024 2:58 PM EDT Babatunde Cornejo DO LAB BLOOD BKR ORDERABLES Final R esult [address] [address] from Last 3 Months or Most Recently Relevant to Health Maintenance Insurance MEDICARE PART A & B Member Subscriber Plan / Payer (Ef fective 2012-Present) Name:Ruthie Toussaint Member ID:[id number] Relation to Subscriber:Self Name:Ruthie Toussaint Subscriber ID:[id number] Payer ID:[id number] Group ID:Not on file Type:Medicare Address: [employer] [facility] [address] [facility] [place] [address] [facility] CARE MEDICARE REPLACEMENT MEDICARE PART A & B MEDICARE REPLACEMENT MEDICARE PART A & B CARE MEDICARE REPLACEMENT MEDICARE PART A & B CARE MEDICARE REPLACEMENT MEDICARE PART A & B CARE MEDICARE REPLACEMENT MEDICARE PART A & B [facility] CARE MEDICARE REPLACEMENT Care Teams Bobbin Cleaner Relationship Specialty Start Date End Date Erika, Nikki Vail MD [address] [place] [address] PCP - General Family Medicine 12/08/23 Additional Source Comments The information contained in this document represents components of the legal health record. It is not the complete legal health record.[facility]
--- OUTSIDE RECORDS SUMMARY | 2025-03-17 15:27 | XMS_ITS | Encounter Summary ---
Author Organization [employer] Address 75 [facility] 7t [place] [address] Care Team Providers Care Tannery Worker Name Role Phone Nikki James MD Primary Care Provider [phone]- [phone] Mary Rain PharmD Unavailable [phone] Gerson Briggs Unavailable [phone] Clemente Babatunde Holley DO Unavailable [phone] Delaney Cantu Unavailable Uzair Ruiz MD Unavailable Reason for Visit * Reason Onset Date Comments Referral 02/15/2023 Encounter Details Date Type Department Care Team (Late st Contact Info) Description 02/15/2023 Telephone [facility] MEDICINE 230 [place], [place] [phone] Nikki James MD 230 [place], [place] [phone] Referral Social History Tobacco Use Types Packs/Day [...] specialist due to headaches and aneurysm historial. [facility] Neurology [facility] [address] [address] documented in this encounter Plan of Treatment Upcoming Encounters Date Type Department Care Team (Late st Contact Info) Description 04/14/2025 1:00 PM EST Nurse Only [facility] MEDICINE [address] [place] [address] documented as of this encounter Goals Goal [...] documented as of this encounter Care Teams Tannery Worker Relationship Specialty Start Date End Date Nikki James MD 230 [place] [address] PCP - General Family Medicine 04/24/18 Mary Rain PharmD 230 [place] [address] Pharmacist Internal Medicine 01/26/23 Gerson Briggs 5 [place] [address] Pulmonary Disease 04/08/24 Babatunde Cornejo DO 22 [place] [address] Endocrinology 04/08/24 Delaney Cantu [address] [address] Dermatology 04/08/24 Uzair Ruiz MD [address] [place] [address] Gastroenterology 09/05/24 Dr. Bravo [facility] Orthopedics [address] [place] [address] Orthopaedic Surgery 05/15/24 documented as of this encounter
--- OUTSIDE RECORDS SUMMARY | 2025-03-17 15:27 | XMS_ITS | Encounter Summary ---
Author Organization [employer] Address 75 [facility] 7t [place] [address] Care Team Providers Care Guest Laundry Attendant Name Role Phone Nikki James MD Primary Care Provider [phone]- [phone] Mary Rain PharmD Unavailable Gerson Briggs Unavailable [phone] Clemente Babatunde Holley DO Unavailable [phone] Delaney Cantu Unavailable Uzair Ruiz MD Unavailable Reason for Visit * Reason Onset Date Comments Nurse Triage 05/16/2023 Encounter Details Date Type Department Care Team (Late st Contact Info) Description 05/16/2023 Telephone [facility] MEDICINE 230 [place] [address] Nikki James MD 230 [place], [place] [phone] Nurse Triage Social History Tobacco Use Types [...] 05/16/2023 12:32 PM EST Triage call with [place] film washer [id number] Pt reports positive Covid test 05/10/23. Pt [...] The caller accepted this outcome Patient speaks yemeni documented in this encounter Plan of Treatment Upcoming Encounters Date Type Department Care Team (Late st Contact [facility]) Description 04/14/2025 1:00 PM EST Nurse Only [facility] MEDICINE 230 [place] [address] documented as of this encounter Goals Goal [...] documented as of this encounter Care Teams Guest Laundry Attendant Relationship Specialty Start Date End Date Nikki James MD 230 [place] [address] PCP - General Family Medicine 04/24/18 Mary Rain PharmD 230 [place] [address] Pharmacist Internal Medicine 01/26/23 Gerson Briggs 5 [place] [address] Pulmonary Disease 04/08/24 Babatunde Cornejo DO 22 [place] [address] Endocrinology 04/08/24 Delaney Cantu [address] [place] [address] Dermatology 04/08/24 Uzair Ruiz MD [address] [place] [address] Gastroenterology 09/05/[address] [facility] Orthopedics 300 [facility] [address] Orthopaedic Surgery 05/15/24 documented as of this encounter
--- OUTSIDE RECORDS SUMMARY | 2025-03-17 15:27 | XMS_ITS | Encounter Summary ---
Author Organization [employer] Address 75 [facility] 7t [place] [address] Care Team Providers Care Canal Boat Captain Name Role Phone Nikki James MD Primary Care Provider [phone]- [phone] Mary Rain PharmD Unavailable Gerson rBiggs Unavailable [phone] Clemente Babatunde Babb DO Unavailable [phone] Delaney Cantu Unavailable Uzair Ruiz MD Unavailable Encounter Details Date Type Department Care Team (Late st Contact Info) Description 10/05/2022 Orders Only [facility] [address] [place], [place] [phone] Alyssa Mehta LPN Social History Tobacco Use [...] Description 04/14/2025 1:00 PM EST Nurse Only [facility] MEDICINE 230 [place], [place] [phone] documented as of this encounter Visit Diagnoses Not on filedocumented in this encounter Care Teams Canal Boat Captain Relationship Specialty Start Date End Date Nikki James MD 230 [place], [place] [phone] PCP - General Family Medicine 04/24/18 Mary Rain, Kisha 230 [place] [address] Pharmacist Internal Medicine 01/26/23 Gerson Briggs 5 [place] [address] Pulmonary Disease 04/08/24 Babatunde Cornejo DO 22 [place] [address] Endocrinology 04/08/24 Delaney Cantu [address] [place] [address] Dermatology 04/08/24 Uzair Ruiz MD [address] [place] [address] Gastroenterology 09/05/24 Dr. Bravo [facility] Orthopedics [address] [place] [address] Orthopaedic Surgery 05/15/24 documented as of this encounter
--- OUTSIDE RECORDS SUMMARY | 2025-03-17 15:27 | XMS_ITS | Encounter Summary ---
Author Organization [employer] Address 75 [facility] 7t [place] [address] Care Team Providers Care Perinatal Educator Name Role Phone Nikki James MD Primary Care Provider [phone]- [phone] Mary Rain PharmD Unavailable [phone] Gerson Briggs Unavailable [phone] Babatunde Cornejo DO Unavailable [phone] Delaney Cantu Unavailable Uzair Ruiz MD Unavailable Reason for Visit * Reason Comments Med Refill Encounter Details Date Type Department Care Team (Late st Contact Info) Description 08/02/2024 Refill [facility] MEDICINE 230 [place], [place] [phone] Nikki James MD 230 [place], [place] [phone] Seasonal allergies Social History Tobacco Use Types [...] Upcoming Encounters Date Type Department Care Team ([facility] st Contact Info) Description 04/14/2025 1:00 PM EST Nurse Only [facility] MEDICINE 230 [place] [address] documented as of this encounter Goals Goal [...] documented as of this encounter Care Teams Perinatal Educator Relationship Specialty Start Date End Date Nikki James MD 230 [place] [address] PCP - General Family Medicine 04/24/18 Mary Rain PharmD 230 [place] [address] Pharmacist Internal Medicine 01/26/23 Gerson Briggs 5 [place] [address] Pulmonary Disease 04/08/24 Babatunde Cornejo DO 22 [place] [address] Endocrinology 04/08/24 Delaney Cantu [address] [place] [address] Dermatology 04/08/24 Uzair Ruiz MD [address] [place] [address] Gastroenterology 09/05/24 Dr. Bravo [facility] Orthopedics [address] [place] [address] Orthopaedic Surgery 05/15/24 documented as of this encounter
--- OUTSIDE RECORDS SUMMARY | 2025-03-17 15:27 | XMS_ITS | Encounter Summary ---
Author Organization [employer] Address 75 [facility] 7t [place] [address] Care Team Providers Care Hole Puncher Strap Name Role Phone Nikki James MD Primary Care Provider [phone]- [phone] Mary Rain PharmD Unavailable Gerson Briggs Unavailable [phone] Babatunde Cornejo DO Unavailable [phone] Delaney Cantu Unavailable Uzair Ruiz MD Unavailable Encounter Details Date Type Department Care Team (Latest Contact Info) Description 03/13/2025 Travel Social History Tobacco Use Types Packs/Day [...] Description 04/14/2025 1:00 PM EST Nurse Only [facility] MEDICINE [address] [place] [address] documented as of this encounter Goals Goal Patient Goal Type Associated Problems Recent Progress Patient-Stated? Author Blood Pressure < 140/90 Blood Pressure 110/66(2024 9:39 AM EDT) No Mary Forbes, PharmD Hemoglobin A1c < 7 Result Component 6.4( 12:00 AM EDT) No Mary Forbes, PharmD Help patients manage their type 2 diabetes Care Plan Help patients manage their type 2 diabetes No Ivanna White, MAYA Weekly blood pressure task Care Plan Weekly blood pressure task No Ivanna White, MAYA Help patients manage their type 2 diabetes Care Plan Help patients manage their type 2 diabetes No Ivanna White, MAYA Patient has chronic kidney disease Care Plan Patient has chronic kidney disease No Ivanna White, MAYA Weekly blood pressure task Care Plan Weekly blood pressure task No Ivanna White, MAYA Patient has chronic kidney disease Care Plan Patient has chronic kidney disease No Ivanna White RN documented as of this encounter Visit Diagnoses Not on filedocumented in this encounter Additional Health Concerns Active [...] documented as of this encounter Care Teams Hole Puncher Strap Relationship Specialty Start Date End Date Nikki James MD 230 [place] [address] PCP - General Family Medicine 04/24/18 Mary Rain PharmD 230 [place] [address] Pharmacist Internal Medicine 01/26/23 Gerson Briggs 5 [place] [address] Pulmonary Disease 04/08/24 Babatunde Cornejo DO 22 [place] [address] Endocrinology 04/08/24 Delaney Cantu [address] [address] Dermatology 04/08/24 Uzair Ruiz MD [address] [place] [address] Gastroenterology 09/05/24 Dr. Bravo [facility] [address] [place] [address] Orthopaedic Surgery 05/15/24 documented as of this encounter
--- OUTSIDE RECORDS SUMMARY | 2025-03-17 15:28 | XMS_ITS | Encounter Summary ---
Author Organization [employer] Address [address] [facility] 7t [place] [address] Care Team Providers Care National Expansion Recruiter Name Role Phone Nikki James MD Primary Care Provider [phone]- [phone] Mary Rain PharmD Unavailable Gerson Briggs Unavailable [phone] Clemente Babatunde Holley DO Unavailable [phone] Delaney Cantu Unavailable Uzair Ruiz MD Unavailable Reason for Visit * Reason Onset Date Comments Durable Medical Equipment 07/13/2022 Encounter Details Date Type Department Care Team (Late st Contact Info) Description 07/13/2022 Telephone [facility] MEDICINE [address] [place], [place] [phone] Nikki James MD 230 [place], [place] [phone] Durable Medical Equipment Social History Tobacco Use [...] send to medline Please contact pt at [phone] documented in this encounter Plan of Treatment Upcoming Encounters Date Type Department Care Team (Late st Contact Info) Description 04/14/2025 1:00 PM EST Nurse Only [facility] MEDICINE 230 [place] [address] documented as of this encounter Visit Diagnoses Not on filedocumented in this encounter Care Teams National Expansion Recruiter Relationship Specialty Start Date End Date Nikki James MD 230 [place] [address] PCP - General Family Medicine 04/24/18 Mary Rain, ElishaD 230 [place] [address] Pharmacist Internal Medicine 01/26/23 Gerson Briggs 5 [place] [address] Pulmonary Disease 04/08/24 Babatunde Cornejo DO 22 [place] [address] Endocrinology 04/08/24 Delaney Cantu [address] [address] Dermatology 04/08/24 Uzair Ruiz MD [address] [place] [address] Gastroenterology 09/05/24 Dr. Bravo [facility] Orthopedics [address] [place] [address] Orthopaedic Surgery 05/15/24 documented as of this encounter
--- OUTSIDE RECORDS SUMMARY | 2025-03-17 15:28 | XMS_ITS | Encounter Summary ---
Author Organization [employer] Address 75 [facility] 7t [place] [address] Care Team Providers Care Equipment Washer Name Role Phone Nikki James MD Primary Care Provider [phone]- [phone] Mary Rain PharmD Unavailable Gerson Briggs Unavailable [phone] Clemente Babatunde Holley DO Unavailable [phone] Delaney Cantu Unavailable Uzair Ruiz MD Unavailable Reason for Visit * Reason Onset Date Comments Referral 02/21/2025 Encounter Details Date Type Department Care Team (Late st Contact Info) Description 02/21/2025 Telephone [facility] MEDICINE 230 [place], [place] [phone] Nikki James MD 230 [place], [place] [phone] Referral Social History Tobacco Use Types Packs/Day [...] encounter Miscellaneous Notes * Telephone Encounter - Rogelio Marquez - 02/21/2025 2:03 PM EDT Tc from pt requesting for referral for rheumatology to be switched to [address] [place] [address]. Any questions contact the pt at [phone] documented in this encounter Plan of Treatment Upcoming Encounters Date Type Department Care Team (Late st Contact Info) Description 04/14/2025 1:00 PM EST Nurse Only [facility] MEDICINE [address] [place] [address] documented as of this encounter Goals Goal [...] Noted Time PHQ-9 Depression Total Score: 10 02/20/ 025 9:40 AM EDT documented as of this encounter Care Teams Equipment Washer Relationship Specialty Start Date End Date Nikki James MD 230 [place] [address] PCP - General Family Medicine 04/24/18 Mary Rain PharmD 230 [place] [address] Pharmacist Internal Medicine 01/26/23 Gerson Briggs 5 [place] [address] Pulmonary Disease 04/08/24 Babatunde Cornejo DO 22 [place] [address] Endocrinology 04/08/24 Delaney Cantu [address] [address] Dermatology 04/08/24 Uzair Ruiz MD [address] [place] [address] Gastroenterology 09/05/[address] [facility] Orthopedics [address] [place] [address] [place] [address] Orthopaedic Surgery 05/15/24 documented as of this encounter
--- OUTSIDE RECORDS SUMMARY | 2025-03-17 15:28 | XMS_ITS | Encounter Summary ---
Author Organization [employer] Address [address] [facility] 7t [place] [address] Care Team Providers Care City Superintendent Name Role Phone Nikki James MD Primary Care Provider [phone]- [phone] Mary Rain PharmD Unavailable Gerson Briggs Unavailable [phone] Clemente Babatunde Babb DO Unavailable [phone] Delaney Cantu Unavailable Uzair Ruiz MD Unavailable Encounter Details Date Type Department Care Team (Late st Contact Info) Description 05/10/2022 Orders Only [facility] MED & PEDS [address] [place], [place] [phone] Alyssa Mehta LPN Social History Tobacco Use [...] Description 04/14/2025 1:00 PM EST Nurse Only [facility] MEDICINE 230 [place], [place] [phone] documented as of this encounter Visit Diagnoses Not on filedocumented in this encounter Care Teams City Superintendent Relationship Specialty Start Date End Date Nikki James MD 230 [place], [place] [phone] PCP - General Family Medicine 04/24/18 Mary Rain, Kisha 230 [place] [address] Pharmacist Internal Medicine 01/26/23 Gerson Briggs 5 [place] [address] Pulmonary Disease 04/08/24 Babatunde Cornejo DO 22 [place] [address] Endocrinology 04/08/24 Delaney Cantu [address] [place] [address] Dermatology 04/08/24 Uzair Ruiz MD [address] [place] [address] Gastroenterology 09/05/24 Dr. Bravo [facility] Orthopedics [address] [place] [address] Orthopaedic Surgery 05/15/24 documented as of this encounter
--- OUTSIDE RECORDS SUMMARY | 2025-03-17 15:28 | XMS_ITS | Encounter Summary ---
Author Organization [employer] Address 75 [facility] 7t [place] [address] Care Team Providers Care Fur Trimming Machine Operator Name Role Phone Nikki James MD Primary Care Provider [phone]- [phone] Mary Rain PharmD Unavailable Gerson Briggs Unavailable [phone] Clemente Babatunde Babb DO Unavailable [phone] Delaney Cantu Unavailable Uzair Ruiz MD Unavailable Encounter Details Date Type Department Care Team (Late st Contact Info) Description 06/02/2022 Abstract [facility] MEDICINE [address] [place] [address] [phone] Nikki James MD 230 [place], [place] [phone] Social History Tobacco Use Types Packs/Day Years [...] Description 04/14/2025 1:00 PM EST Nurse Only [facility] MEDICINE 230 [place], [place] [phone] documented as of this encounter Procedures Procedure [...] on filedocumented in this encounter Care Teams Fur Trimming Machine Operator Relationship Specialty Start Date End Date Nikki James MD 230 [place] [address] PCP - General Family Medicine 04/24/18 Mary Rain, ElishaD 230 [place] [address] Pharmacist Internal Medicine 01/26/23 Gerson Briggs 5 [place] [address] Pulmonary Disease 04/08/24 Babatunde Cornejo DO 22 [place] [address] Endocrinology 04/08/24 Delaney Cantu [address] [address] Dermatology 04/08/24 Uzair Ruiz MD [address] [place] [address] Gastroenterology 09/05/24 Dr. Bravo [facility] Orthopedics [address] [place] [address] Orthopaedic Surgery 05/15/24 documented as of this encounter
--- OUTSIDE RECORDS SUMMARY | 2025-03-17 15:28 | XMS_ITS | Encounter Summary ---
Author Organization [employer] Address 75 [facility] 7t [place] [address] Care Team Providers Care System Technologist Name Role Phone Nikki James MD Primary Care Provider [phone]- [phone] Mary Rain PharmD Unavailable Gerson Briggs Unavailable [phone] Clemente Babatunde Babb DO Unavailable [phone] Delaney Cantu Unavailable Uzair Ruiz MD Unavailable Encounter Details Date Type Department Care Team (Late st Contact Info) Description 04/21/2022 Orders Only [facility] MEDICINE 230 [place], [place] [phone] Lisa Navarro RN Social History Tobacco Use [...] Description 04/14/2025 1:00 PM EST Nurse Only [facility] MEDICINE 230 [place], [place] [phone] documented as of this encounter Visit Diagnoses Not on filedocumented in this encounter Care Teams System Technologist Relationship Specialty Start Date End Date Nikki James MD 230 [place], [place] [phone] PCP - General Family Medicine 04/24/18 Mary Rain PharmD 230 [place] [address] Pharmacist Internal Medicine 01/26/23 Gerson Briggs 5 [place] [address] Pulmonary Disease 04/08/24 Babatunde Cornejo DO 22 [place] [address] Endocrinology 04/08/24 Delaney Cantu [address] [place] [address] Dermatology 04/08/24 Uzair Ruiz MD [address] [place] [address] Gastroenterology 09/05/24 Dr. Bravo [facility] Orthopedics [address] [place] [address] Orthopaedic Surgery 05/15/24 documented as of this encounter
== END 2025-03-17 11:38 | disposition home or self-care (01) ==
LOC: HO.HMGAL 11:37
PROVIDERS: PCP Family Medicine; Visit Provider Registered Nurse Emergency
DX: J30.89 Other allergic rhinitis (principal)
CPT/HCPCS: 95117; 95165

== ENCOUNTER 2025-03-19 09:02 | Outpatient (REF) | payer OTHER, SELFPAY ==
--- NOTE | ~2025-03-19 | XR_ITS ---
EXAMINATION: XR BILATERAL HIPS WITH AP PELVIS CLINICAL INFORMATION: M25.50 - Pain in unspecified joint COMPARISON: None available. TECHNIQUE: AP view of the pelvis and single views of each hip were obtained. FINDINGS: No fracture. Hip joint spaces are maintained. Alignment is anatomic. Sacroiliac joints and pubic symphysis are maintained. No suspicious bony lesion. No abnormal soft tissue calcifications. XR/XR hip BI w PEL1V IMPRESSION: No acute findings Electronically signed by: Umair Cervantes MD 03/21/2025 07:30 AM [facility]
--- NOTE | ~2025-03-19 | XR_ITS ---
EXAMINATION: X-RAY BILATERAL SHOULDERS CLINICAL INFORMATION: Raynaud's syndrome. COMPARISON: No relevant prior studies are available for comparison. TECHNIQUE: Bilateral shoulders each 4 views. FINDINGS: LEFT SHOULDER: Mild acromioclavicular arthritis. Glenohumeral joint space is maintained. No acute fracture or dislocation. No abnormal soft tissue calcification. No suspicious bony lesion. RIGHT SHOULDER: Mild acromioclavicular arthritis. Glenohumeral joint space is maintained. Greater tuberosity degenerative changes. No suspicious bony lesion. No abnormal soft tissue calcification. XR/XR Shoulder Trev min 2V IMPRESSION: Mild bilateral acromioclavicular arthritis. Electronically signed by: Umair Cervantes MD 03/21/2025 04:05 PM [facility]
--- NOTE | ~2025-03-19 | XR_ITS ---
EXAMINATION: X-ray bilateral hands CLINICAL INFORMATION: Pain COMPARISON: None TECHNIQUE: Bilateral hands each 3 views FINDINGS: Right hand: No fracture or dislocation. Mild first MCP joint space narrowing. Otherwise, no significant joint space narrowing or marginal osteophytes. No osseous erosion. No abnormal soft tissue calcification. Left hand: No fracture or dislocation. No significant joint space narrowing or marginal osteophytes. No osseous erosion. No abnormal soft tissue calcification. XR/XR Hand Bilat min 3v IMPRESSION: Right hand: Mild first MCP joint space narrowing. No acute findings Left hand: No significant osseous findings. Electronically signed by: Umair Cervantes MD 03/21/2025 08:29 AM [facility]
--- NOTE | ~2025-03-19 | XR_ITS ---
Exam: X-ray, bilateral knees.XR KNEE 1-2 VIEWS BILATERAL TECHNIQUE: AP standing bilateral and lateral views lower extremity joint, bilateral knees INDICATION: I73.00 - Raynaud's syndrome without gangrene COMPARISON: Right knee 01/10/2017 and left knee 02/15/2017 FINDINGS: RIGHT KNEE: There is subtle narrowing of the medial and lateral joint spaces, increased from the prior. Intercondylar tubercles are peaked. There is no joint effusion. There are enthesophytes involving anterior patella and tibial tuberosity. LEFT KNEE: There is questionable narrowing of the medial joint space. There is a trochlear osteophyte is visible in the lateral. There is enthesophyte of the cross anterior patella. XR/XR Knee Trev 1or 2V IMPRESSION: Right knee: Mild nonspecific degenerative change, slightly increased from the prior Left knee: Questionable degenerative change. Electronically signed by: Drake Sanders MD 03/19/2025 11:57 AM EST
[2025-03-19 14:01] LABS: Appearance Urine Clear; Glucose Urine UA >=1000 mg/dL (Negative); PH 5.5 (5.0-9.0); Specific Gravity - Urine >= 1.030 (1.005-1.025); UMIC TRIGGER UACC YES
[2025-03-19 14:13] LABS: Erythrocyte Sedimentation Rate 23 MM/HR (0-20)
[2025-03-19 14:27] LABS: Protein/Creatinine Ratio, Ur 0.07 (<0.2); Total Protein Urine Random 13 mg/dL (<12)
[2025-03-19 15:20] LABS: Uric Acid 3.5 mg/dL (2.4-5.7)
[2025-03-23 13:53] LABS: Antibody to SS-A Antigen <1.0 NEG AI (<1.0 NEG); Antibody to SS-B Antigen <1.0 NEG AI (<1.0 NEG); SM/Ribonucleoprotein Ab <1.0 NEG AI (<1.0 NEG); Smith Protein <1.0 NEG AI (<1.0 NEG)
[2025-03-24 16:14] LABS: DNAds, Crithidia Antibody Negative (Negative)
[2025-03-27 11:14] LABS: Centromere Protein A Ab <11 SI (<11); Centromere Protein B Ab <11 SI (<11); Fibrillarin Ab <11 SI (<11); PM SCL 100 Ab <11 SI (<11); PM SCL 75 Ab <11 SI (<11); RNA Polymerase III RP11 Ab <11 SI (<11); RNA Polymerase III RP155 Ab <11 SI (<11); SCL-70 Extractable Nuclear Ab <11 SI (<11); Th-To Ab <11 SI (<11); U1 SNRNP RNP 70KD <11 SI (<11); U1 SNRNP RNP A <11 SI (<11); U1 SNRNP RNP C <11 SI (<11)
== END 2025-03-19 09:03 | disposition home or self-care (01) ==
LOC: HO.HKASLDS 09:02
PROVIDERS: PCP Family Medicine; Visit Provider Student in an Organized Health Care Education/Training Program
DX: I73.00 Raynaud's syndrome without gangrene (principal); M25.50 Pain in unspecified joint; R76.89 Other specified abnormal immunological findings in serum; R76.0 Raised antibody titer
CPT/HCPCS: 36415; 73030; 73130; 73521; 73560; 81001; 82550; 82570; 83516; 84156; 84182; 84550; 85652; 86140; 86160; 86200; 86225; 86235; 86255; 86431; 99202

== ENCOUNTER 2025-03-19 09:02 | Outpatient (AMB) | payer OTHER, SELFPAY ==
--- OUTSIDE RECORDS SUMMARY | 2024-09-02 08:30 | XMS_ITS ---
Author Organization [facility] Address [address] [place] [address] Care Team Providers Care Logging Supervisor Name Role Phone Erika REYNOSO, Nikki Primary Care Provider Vania Uzair Elizalde [phone] REASON FOR VISIT gerd,heartburn Encounters Encounter Location Date Provider [place] [facility] [address] [place], [place] [id number] 09/02/2024 Uzair Ruiz Hiatal hernia K44. 9 and Gastro-esophageal reflux disease without esophagitis K21.9 Assessments Encounter Date Diagnosis (ICD Code) Assessment Notes Treatment Notes Treatment Clinical Notes Section Notes 09/02/2024 Hiatal hernia (ICD-10 - K44.9) 09/02/2024 Gastro-esophagea l reflux disease without esophagitis (ICD-10 - K21.9) Plan Of Treatment No Information Progress Notes * Syed TOUSSAINTOB:1965 (59 yo F)Acc No.[id number]:09/02/2024 EGD/MAC Patient: Ruthie Sidhu Provider: Smita Ruiz MD :1965 A ge:59 Y S ex:Female Date:09/02/2024 Address:[address] [place] [address], [facility] Pcp:Nikki James MD Subjective: * Chief Complaints: * G erd,heartburn Assessment: * Assessment: 1. H iatal hernia - K44.9 (Primary) 2 . G shreya-esophageal reflux disease without esophagitis - K21.9 Plan: * Procedure Codes: 4 3239 UPPER GI ENDOSCOPY, BIOPSY Billing Information: * Procedure Codes: 31253 UPPER GI ENDOSCOPY, BIOPSY. * The named appointment provid er may or may not be the originator of this progress note, and it is not deemed complete until electronically signed by the appointment provider. Sign off status: Pending * Provider: Smita Ruiz MD Date: 0 09/02/2024 Generated for Gill garcia/Nahomy/Lamonteitting on: 1 05/19/2024 09:42 AM EST
[2025-03-19 09:04] VITALS: BP 124/72; PULSE 62; O2SAT 95; BMI 30.6
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
--- OUTSIDE RECORDS SUMMARY | 2025-03-19 09:41 | XMS_ITS | Encounter Summary ---
Author Organization [employer] Address [address] [facility] 7t [place] [address] Care Team Providers Care Campaign Advisor Name Role Phone Nikki James MD Primary Care Provider [phone]- [phone] Mary Rain PharmD Unavailable Gerson Briggs Unavailable [phone] Babatunde Cornejo DO Unavailable [phone] Delaney Cantu Unavailable Uzair Ruiz MD Unavailable Reason for Visit * Reason Comments Med Refill Encounter Details Date Type Department Care Team (Late st Contact Info) Description 08/02/2024 Refill [facility] MEDICINE 230 [place], [place] [phone] Nikki James MD 230 [place], [place] [phone] Seasonal allergies Social History Tobacco Use Types [...] Upcoming Encounters Date Type Department Care Team ([facility] st Contact Info) Description 04/14/2025 1:00 PM EST Nurse Only [facility] MEDICINE 230 [place] [address] documented as of this encounter Goals Goal [...] documented as of this encounter Care Teams Campaign Advisor Relationship Specialty Start Date End Date Nikki James MD 230 [place] [address] PCP - General Family Medicine 04/24/18 Mary Rain PharmD 230 [place] [address] Pharmacist Internal Medicine 01/26/23 Gerson Briggs 5 [place] [address] Pulmonary Disease 04/08/24 Babatunde Cornejo DO 22 [place] [address] Endocrinology 04/08/24 Delaney Cantu [address] [place] [address] Dermatology 04/08/24 Uzair Ruiz MD [address] [place] [address] Gastroenterology 09/05/24 Dr. Bravo [facility] Orthoped[facility] [address] [place] [address] Orthopaedic Surgery 05/15/24 documented as of this encounter
--- OUTSIDE RECORDS SUMMARY | 2025-03-19 09:41 | XMS_ITS | Encounter Summary ---
Author Organization [employer] Address 75 [facility] 7t [place] [address] Care Team Providers Care Lpn Rn Name Role Phone Erika, Nikki REYNOSO Primary Care Provider [phone]- [phone] Mary Rain PharmD Unavailable [phone] Gerson Briggs Unavailable [phone] Babatunde Cornejo DO Unavailable [phone] Delaney Cantu Unavailable Uzair Ruiz MD Unavailable Reason for Referral * Consultation (STAT) - Closed Specialty Diagnoses / Procedures Referred By Conteliana t Referred To Contact Obstetrics and Gynecology Diagnoses Labial cyst Jenna Walter MD 230 [place] [address] Phone: tel: fax: [facility] Referral ID Status Reason Start Date Expiration Date V isits Requested Visits Authorized [id number] Closed Specialty Services Required 06/11/2024 06/11/2025 1 1 Encounter Details Date Type Department Care Team (Late st Contact Info) Description 06/11/2024 Orders Only [facility] MEDICINE 230 [place], [place] [phone] Jenna Walter MD 230 [place], [place] [phone] Labial cyst (Primary Dx) Social History Tobacco [...] 1:00 PM EST Nurse Only [facility] MEDICINE [address] [place] [address] Scheduled Referrals Name Type Priority Associated Diagnoses [...] documented as of this encounter Care Teams Lpn Rn Relationship Specialty Start Date End Date Nikki James MD 230 [place] [address] PCP - General Family Medicine 04/24/18 Mary Rain PharmD [address] [place] [address] Pharmacist Internal Medicine 01/26/23 Gerson Briggs 5 [place] [address] Pulmonary Disease 04/08/24 Babatunde Cornejo DO 22 [place] [address] Endocrinology 04/08/24 Delaney Cantu [address] [address] Dermatology 04/08/24 Uzair Ruiz MD [address] [place] [address] Gastroenterology 09/05/24 Dr. Bravo [facility] Orthopedics [address] [place] [address] Orthopaedic Surgery 05/15/24 documented as of this encounter
--- OUTSIDE RECORDS SUMMARY | 2025-03-19 09:42 | XMS_ITS | Encounter Summary ---
Author Organization [employer] Address 75 [facility] 7t [place] [address] Care Team Providers Care Nougat Cutter Machine Name Role Phone Nikki James MD Primary Care Provider [phone] Mary Rain PharmD Unavailable Gerson Briggs Unavailable [phone] Babatunde Cornejo DO Unavailable [phone] Delaney Cantu Unavailable Uzair Ruiz MD Unavailable Reason for Visit * Reason Comments Med Refill Encounter Details Date Type Department Care Team (Late st Contact Info) Description 03/06/[address] [facility] MEDICINE 230 [place], [place] [phone] Nikki James MD 230 [place], [place] [phone] Primary hypertension Social History Tobacco Use Types [...] Description 04/14/2025 1:00 PM EST Nurse Only [address] [address] documented as of this encounter Goals Goal [...] documented as of this encounter Care Teams Nougat Cutter Machine Relationship Specialty Start Date End Date Nikki James MD 230 [place] [address] PCP - General Family Medicine 04/24/18 Mary Rain PharmD 230 [place] [address] Pharmacist Internal Medicine 01/26/23 Gerson Briggs 5 [place] [address] Pulmonary Disease 04/08/24 Babatunde Cornejo DO 22 [place] [address] Endocrinology 04/08/24 Delaney Cantu [address] [place] [address] Dermatology 04/08/24 Uzair Ruiz MD [address] [place] [address] Gastroenterology 09/05/24 Dr. Bravo [facility] Orthopedics [address] [place] [address] Orthopaedic Surgery 05/15/24 documented as of this encounter
--- OUTSIDE RECORDS SUMMARY | 2025-03-19 09:42 | XMS_ITS | Data Portability ---
Author Organization [place] - [facility], [facility] Address [address] [place] [address] Care Team Providers Care Machine Installer Name Role Phone JOHN, INÉS Primary Care [...] Kincaid Taping at your discretion. 2024 025 [facility], [address] [place], [address], 5 10:33:14 physical therapist referral - Evaluate & Rx Lumbar Stabilizati on Program 2023 024 cstamand Not available 4 10:06:55 Procedures None recorded. Surgeries None recorded. Imaging None recorded. Medication Orders None recorded. Patient TargetsNo targets recorded. Patient InstructionsNo instructions recorded. Reason for Referral Physical Therapist Referral for Lumbar radiculopathy Evaluate & RxLumbar Stabilization Program Referring Physician: David Florentino, Orthopedic Surgery, [id number] Encounter Date: 11/23/2023 Physical Therapist Referral for History of arthroscopy of knee joint VMO Strengthening, Hip Abductor, Glute Med Strengthening, Quad & Hamstring Stretching, Patella Mobilization, Kincaid Taping at your discretion. Referring Physician: Dominik Oliver, Orthopedic Surgery, Encounter Date: 05/14/2024 Problems Name Problem SNOMED Code Status Onset Date Resolution Date Notes Provider Name and Address Organization Details Recorded Time Lumbar radiculopat hy 482527507 Active 2023 ALIA VALLEJOBROOK [facility] 4 13:33:58 Tear of lateral meniscus of knee 667677261 Active 2023 THONG GREWAL [facility] 4 12:27:25 Acute tear of lateral meniscus of right knee 6976486088733 9100 Active 2023 THONG GREWAL [facility] 4 12:29:09 Problem Notes None recorded. Procedures Surgical History Date Name Laterality Status Provider Name and Address Organization Details Recorded Time 11/23/2023 Sports Knee 4&1 completed David Florentino MD [address] [place] [address] [address], [address], [facility] 11/23/2023 13:41:58 Imaging Results None recorded. Procedure Notes None recorded. Medical Equipment None Reported. Allergies Allergen ID Allergen Name Allergen Category Reaction Reaction Severity Criticality Documentation Date Start Date Code Code System Note Provider Name and Address Organization Details Recorded Time 716425 amoxicill in medicatio n Not available Not available Not available 11/23/2023 723 RxNorm [facility] 13:26:38 333733 Product containin g penicilli n (product) medicatio n Not available Not available Not available 11/23/2023 41628 8001 SNOMED [facility] 13:26:44 505821 Iodinated contrast media (substanc e) medicatio n Not available Not available Not available 11/23/2023 64130 2003 [facility] 13:26:51 655577 morphine medicatio n Not available Not available Not available 11/23/2023 7052 RxNorm [facility] 13:27:02 Medications Name Sig Start Date Stop [...] Updated DateTime 05/14/2024 162.56 cm 38.1 kg/m2 874449.51 g 98 [degF] Dominik Oliver PA-C [address], [address] , [place] [facility] 05/14/2024 15:51:10 Date Recorded Body height Body mass index (BMI) Body weight Provider Name and Address Organization Details Last Updated DateTime 11/23/2023 162.56 cm 38.1 kg/m2 804545.51 g ALIA JONES [facility] 11/23/2023 13:26:31 Date Recorded Body height Body mass index (BMI) Body weight Provider Name and Address Organization Details Last Updated DateTime 02/29/2024 162.56 cm 38.1 kg/m2 241662.51 g THONG GREWAL [facility] 02/29/2024 15:27:30 Social History None recorded. Functional [...] ICD10 Code Diagnosis IMO Codes Diagnosis Note [id number] MD Gam[address] [facility] 2nd floor [address] [place] [address] 11/23/2023 13:09:21 12/22/2023 10:06:54 Lumbar radiculopathy 349192923 M54.16 Tear of la teral meniscus of knee 424422872 S83.281D [id number] MD [facility] [facility] [address] [place] [address] 02/29/2024 15:25:44 04/01/2024 13:26:13 Tear of lateral meniscus of knee 843682876 S83.281D [id number] TRACI [facility] - [facility] [address] [place] [address] 05/14/2024 15:45:41 05/31/2024 09:38:28 History of arthroscopy of knee joint 322680131 Z98.890 099830 Health Concerns Section Related Observation LastModified by Organization Detai ls LastModified Time None Recorded Concern Status LastModified by Organization Details LastModified Time None Recorded Advance Directives Directive None Recorded Payers Insurance Date Sequence Insurance Name Policy Number Policy Hernández Covered Member ID Hernández Member ID Guarantor Name 05/31/2024 1 [facility] - DOS ON OR AFTER 2022 - ONE CARE (MEDICARE REPLACEMENT/ADV ANTAGE - HMO) Ruthie Toussaint [id number] Ruthie Toussaint Notes Date Note Type Note [...] Follow-up 3 months. David Florentino MD [address] [facility] [address], [place], [address], [facility] 11/23/2023 13:51:28 4 text/htm l HPI: Patient [...] the next 30 days. David Florentino MD [address] [place] [address] [address], [address], [facility] 02/29/2024 16:15:09 5 text/htm l I am [...] patient remains symptomatic. Dominik Oliver PA-C [address] [facility] [address], [place], [address], [facility] [place] [facility] 05/14/2024 16:02:41 OBGyn Episode No OBEpisode recorded.
--- OUTSIDE RECORDS SUMMARY | 2025-03-19 09:42 | XMS_ITS | Encounter Summary ---
Author Organization [employer] Address [address] [facility] 7t [place] [address] Care Team Providers Care Security Alarm Technician Name Role Phone ErikaNikki melgar MD Primary Care Provider +1- [phone] Mary Rain PharmD Unavailable Gerson Briggs Unavailable [phone] Babatunde Cornejo DO Unavailable [phone] Delaney Cantu Unavailable Uzair Ruiz MD Unavailable Reason for Visit * Reason Comments Med Refill Encounter Details Date Type Department Care Team (Late st Contact Info) Description 04/25/[address] [facility] [address] [place] [address] Pauline Berger MD [address] [place], [place] [phone] Social History Tobacco Use Types Packs/Day Years [...] Description 04/14/2025 1:00 PM EST Nurse Only [facility] [address] [place] [address] documented as of this encounter Goals Goal [...] documented as of this encounter Care Teams Security Alarm Technician Relationship Specialty Start Date End Date Nikki James MD [address] [place] [address] PCP - General Family Medicine 04/24/18 Mary Rain, ElishaD [address] [place] [address] Pharmacist Internal Medicine 01/26/23 Gerson Briggs [address] [place] [address] [place] [address] Pulmonary Disease 04/08/24 Babatunde Cornejo DO [address] [place] [address] Endocrinology 04/08/24 Delaney Cantu [address] [address] Dermatology 04/08/24 Uzair Ruiz MD [address] [place] [address] Gastroenterology 09/05/24 Dr. Bravo [facility] Orthopedics 300 [facility] [address] Orthopaedic Surgery 05/15/24 documented as of this encounter
--- OUTSIDE RECORDS SUMMARY | 2025-03-19 09:42 | XMS_ITS | Clinical Summary ---
Author Organization [facility] Address [address] [facility] [address] [place] [address] Phone Care Team Providers Care Aerial Hurricane Hunter Name Role Phone Nikki James MD Primary [...] Team Description 01/20/2025 Telephone [facility] [address] [place] [id number] Babatunde Cornejo, DO alternatives to Ozempic (alternatives to Ozempic) 01/20/2025 Telephone [facility] [address] [place] [id number] Babatunde Cornejo, DO Medication Refill (Jardiance refill) 12/21/2024 Refill [facility] [address] [place] [id number] Babatunde Cornejo, DO Medication Refill from Last [...] 11:30 AM EST Office Visit [facility] [address] [place] [id number] Babatunde Cornejo DO [address] [place] [address] [email or web address] Health Maintenance Due Date Last Done Comments [...] HEMOGLOBIN A1C 6.4(H) 4.3 - 5.8 % [facility] Blood 11/04/2024 2:51 PM EDT 11/04/2024 2:58 PM EDT Babatunde Cornejo DO LAB BLOOD BKR ORDERABLES Final R esult [facility] [address] [place] [address] * (ABNORMAL) Lipid panel (11/04/2024 2:51 PM EDT) HDL 55 mg/dL [facility] Comment: Interpretation <40 mg/dL: Low HDL cholesterol (major risk factor for CHD) Greater than or equal to 60 mg/dL: High HDL cholesterol ( negative risk factor for CHD) HDL - cholesterol is affected by a number of factors, e.g. smoking, excerise, hormones, sex and age. CHOLESTEROL 160 0 - 240 mg/dL [facility] TRIGLYCERIDES 84 30 - 160 mg/dL [facility] LDL 88 50 - 129 mg/dL [facility] Comment: LDL levels in terms of risk for coronary heart disease: <100 mg/dL: Optimal 100-129 mg/dL: Near or above optimal 130-159 mg/dL: Borderline high 160-189 mg/dL: High >190 mg/dL: Very High CARDIAC RISK RATIO 2.9(L) 3.3 - 4.4 C [facility] Blood 11/04/2024 2:51 PM EDT 11/04/2024 2:58 PM EDT Babatunde Cornejo DO LAB BLOOD BKR ORDERABLES Final R esult [address] [address] from Last 3 Months or Most Recently Relevant to Health Maintenance Insurance MEDICARE PART A & B [facility] ONE CARE MEDICARE REPLACEMENT MEDICARE PART A & B MEDICARE REPLACEMENT MEDICARE PART A & B CARE MEDICARE REPLACEMENT MEDICARE PART A & B CARE MEDICARE REPLACEMENT MEDICARE PART A & B CARE MEDICARE REPLACEMENT MEDICARE PART A & B [facility] C[facility] MEDICARE REPLACEMENT Care Teams Aerial Hurricane Hunter Relationship Specialty Start Date End Date Erika, Nikki Vail MD [address] [place] [address] PCP - General Family Medicine 12/08/23 Additional Source Comments The information contained in this document represents components of the legal health record. It is not the complete legal health record.[facility]
--- OUTSIDE RECORDS SUMMARY | 2025-03-19 09:42 | XMS_ITS | Clinical Summary ---
Author Organization [facility] Address [address] [place] [address] Care Team Providers Care Drop Forge Hand Name Role Phone Unavailable Primary Care Provider [...]
--- OUTSIDE RECORDS SUMMARY | 2025-03-19 09:42 | XMS_ITS | Encounter Summary ---
Author Organization [employer] Address [address] [facility] 7t [place] [address] Care Team Providers Care Data Services Developer Name Role Phone Nikki James MD Primary Care Provider [phone]- [phone] Mary Rain PharmD Unavailable Gerson Briggs Unavailable [phone] Clemente Babatunde Holley DO Unavailable [phone] Delaney Cantu Unavailable Uzair Ruiz MD Unavailable Reason for Visit * Reason Onset Date Comments Referral 02/21/2025 Encounter Details Date Type Department Care Team (Late st Contact Info) Description 02/21/2025 Telephone [facility] [address] [place], [place] [phone] Nikki James MD [address] [place], [place] [phone] Referral Social History Tobacco Use Types Packs/Day [...] referral for rheumatology to be switched to [address] [place] [address]. Any questions contact the pt at [phone] documented in this encounter Plan of Treatment Upcoming Encounters Date Type Department Care Team (Late st Contact Info) Description 04/14/2025 1:00 PM EST Nurse Only [facility] [address] [place] [address] documented as of this encounter Goals Goal [...] documented as of this encounter Care Teams Data Services Developer Relationship Specialty Start Date End Date Nikki James MD [address] [place] [address] PCP - General Family Medicine 04/24/18 Mary Rain PharmD [address] [place] [address] Pharmacist Internal Medicine 01/26/23 Gerson Briggs 5 [place] [address] Pulmonary Disease 04/08/24 Babatunde Cornejo DO 22 [place] [address] Endocrinology 04/08/24 Delaney Cantu [address] [address] Dermatology 04/08/24 Uzair Ruiz MD [address] [place] [address] Gastroenterology 09/05/[address] [facility] Orthopedics [address] [place] [address] [place] [address] Orthopaedic Surgery 05/15/24 documented as of this encounter
--- OUTSIDE RECORDS SUMMARY | 2025-03-19 09:42 | XMS_ITS | Encounter Summary ---
Author Organization [employer] Address [address] [facility] 7t [place] [address] Care Team Providers Care Seals Engraver Name Role Phone Nikki James MD Primary Care Provider [phone] Mary Rain PharmD Unavailable [phone] Gerson Briggs Unavailable [phone] Clemente Babatunde Holley DO Unavailable [phone] Delaney Cantu Unavailable Uzair Ruiz MD Unavailable Reason for Visit * Reason Onset Date Comments Referral 02/15/2023 Encounter Details Date Type Department Care Team (Late st Contact Info) Description 02/15/2023 Telephone [facility] 230 [place], [place] [phone] Nikki James MD 230 [place], [place] [phone] Referral Social History Tobacco Use Types Packs/Day [...] specialist due to headaches and aneurysm historial. [facility] Neurology [facility] [address] [address] documented in this encounter Plan of Treatment Upcoming Encounters Date Type Department Care Team (Late st Contact Info) Description 04/14/2025 1:00 PM EST Nurse Only [facility] [address] [place] [address] documented as of this encounter Goals Goal [...] documented as of this encounter Care Teams Seals Engraver Relationship Specialty Start Date End Date Nikki James MD [address] [place] [address] PCP - General Family Medicine 04/24/18 Mary Rain PharmD [address] [place] [address] Pharmacist Internal Medicine 01/26/23 Gerson Briggs 5 [place] [address] Pulmonary Disease 04/08/24 Babatunde Cornejo DO 22 [place] [address] Endocrinology 04/08/24 Delaney Cantu [address] [address] Dermatology 04/08/24 Uzair Ruiz MD [address] [place] [address] Gastroenterology 09/05/24 Dr. Bravo [facility] Orthopedics [address] [place] [address] Orthopaedic Surgery 05/15/24 documented as of this encounter
--- OUTSIDE RECORDS SUMMARY | 2025-03-19 09:42 | XMS_ITS | Encounter Summary ---
Author Organization [employer] Address [address] [facility] 7t [place] [address] Care Team Providers Care Puff Iron Operator Name Role Phone Nikki James MD Primary Care Provider [phone]- [phone] Mary Rain PharmD Unavailable [phone] Gerson Briggs Unavailable [phone] Clemente Babatunde Holley DO Unavailable [phone] Delaney Cantu Unavailable Uzair Ruiz MD Unavailable Reason for Visit * Reason Onset Date Comments Nurse Triage 11/18/2024 Encounter Details Date Type Department Care Team (Late st Contact Info) Description 11/18/2024 Telephone [facility] 230 [place], [place] [phone] Nikki James MD 230 [place], [place] [phone] Nurse Triage Social History Tobacco Use Types [...] Elliott RN - 11/18/2024 4:23 PM EDT [facility] noted from 11/16/2024 printed and will be scanned into pt chart under media. * Telephone Encounter - Lucero Mares RN - 11/18/2024 4:02 PM EDT No skin washer needed as this pattern chart writer speaks Vincentian. Call returned to [facility] to triage belowat [phone]. Reports having nausea since Monday. Per pt seen at [facility] ER on Monday for sx. Ptwas given medications for nausea while at ER . Per pt was having constipation. Pt found to have colitis. Elevated WBC. Pt given abx, tylenol and ibuprofen . Pt is taking meds with food and drinking plenty of water. Pt offered to have instED see patient or seek MNC. Pt states called pharmacy and hasa med pendign but not sure if ondansetron. Pt agrees to take number for isntED PRN. Reviewed home care advise, ER precautions and reasons to call back. Will send to PCP to review and further advise if short course Rx for ondansetron can be sent for patient. Sent to team to obtain [facility] notes for provider review as well. [...] higher acuity questions Please contact pt at [phone]. (Vincentian Speaker) documented in this encounter Plan of Treatment Upcoming Encounters Date Type Department Care Team (Late st Contact Info) Description 04/14/2025 1:00 PM EST Nurse Only [facility] [address] [place] [address] documented as of this encounter Goals Goal [...] documented as of this encounter Care Teams Puff Iron Operator Relationship Specialty Start Date End Date Nikki James MD [address] [place] [address] PCP - General Family Medicine 04/24/18 Mary Rain, ElishaD [address] [place] [address] Pharmacist Internal Medicine 01/26/23 Gerson Briggs 5 [place] [address] Pulmonary Disease 04/08/24 Babatunde Cornejo DO 22 [place] [address] Endocrinology 04/08/24 Delaney Cantu [address] [address] Dermatology 04/08/24 Uzair Ruiz MD [address] [place] [address] Gastroenterology 09/05/24 Dr. Bravo [facility]oped[facility] 300 [facility] [address] Orthopaedic Surgery 05/15/24 documented as of this encounter
--- OUTSIDE RECORDS SUMMARY | 2025-03-19 09:42 | XMS_ITS | Encounter Summary ---
Author Organization [employer] Address [address] [facility] 7t [place] [address] Care Team Providers Care Ceramic Artist Name Role Phone Nikki James MD Primary Care Provider [phone] Mary Rain PharmD Unavailable Gerson Briggs Unavailable [phone] Clemente Babatunde Babb DO Unavailable [phone] Delaney Cantu Unavailable Uzair Ruiz MD Unavailable Encounter Details Date Type Department Care Team (Late st Contact Info) Description 10/05/2022 Orders Only [facility] [address] [place], [place] [phone] Alyssa Mehta LPN Social History Tobacco Use [...] Description 04/14/2025 1:00 PM EST Nurse Only [facility] 230 [place], [place] [phone] documented as of this encounter Visit Diagnoses Not on filedocumented in this encounter Care Teams Ceramic Artist Relationship Specialty Start Date End Date Nikki James MD 230 [place], [place] [phone] PCP - General Family Medicine 04/24/18 Mary Rain, Kisha [address] [place] [address] Pharmacist Internal Medicine 01/26/23 Gerson Briggs 5 [place] [address] Pulmonary Disease 04/08/24 Babatunde Cornejo DO 22 [place] [address] Endocrinology 04/08/24 Delaney Cantu [address] [place] [address] Dermatology 04/08/24 Uzair Ruiz MD [address] [place] [address] Gastroenterology 09/05/24 Dr. Bravo [facility] Orthopedics [address] [place] [address] Orthopaedic Surgery 05/15/24 documented as of this encounter
--- OUTSIDE RECORDS SUMMARY | 2025-03-19 09:42 | XMS_ITS | Encounter Summary ---
Author Organization [employer] Address [address] [facility] 7t [place] [address] Care Team Providers Care Accuracy Expert Name Role Phone Nikki James MD Primary Care Provider [phone] Mary Rain PharmD Unavailable Gerson Briggs Unavailable [phone] Babatunde Cornejo DO Unavailable [phone] Delaney Cantu Unavailable Uzair Ruiz MD Unavailable Encounter Details Date Type Department Care Team (Late st Contact Info) Description 11/10/2022 Orders Only [facility] [address] [place], [place] [phone] Lisbeth Taylor LPN Social History Tobacco Use [...] Description 04/14/2025 1:00 PM EST Nurse Only [facility] [address] [place], [place] [phone] documented as of this encounter Visit Diagnoses Not on filedocumented in this encounter Care Teams Accuracy Expert Relationship Specialty Start Date End Date Nikki James MD 230 [place], [place] [phone] PCP - General Family Medicine 04/24/18 Mary Rain, Kisha 230 [place] [address] Pharmacist Internal Medicine 01/26/23 Gerson Briggs 5 [place] [address] Pulmonary Disease 04/08/24 Babatunde Cornejo DO 22 [place] [address] Endocrinology 04/08/24 Delaney Cantu [address] [place] [address] Dermatology 04/08/24 Uzair Ruiz MD [address] [place] [address] Gastroenterology 09/05/24 Dr. Bravo [facility] Orthopedics [address] [place] [address] Orthopaedic Surgery 05/15/24 documented as of this encounter
--- OUTSIDE RECORDS SUMMARY | 2025-03-19 09:42 | XMS_ITS | Encounter Summary ---
Author Organization [employer] Address [address] [facility] 7t [place] [address] Care Team Providers Care Underground Bolting Machine Operator Name Role Phone Nikki James MD Primary Care Provider [phone]- [phone] Mary Rain PharmD Unavailable [phone] Gerson Briggs Unavailable [phone] Clemente Babatunde Holley DO Unavailable [phone] Delaney Cantu Unavailable Uzair Ruiz MD Unavailable Reason for Visit * Reason Comments Med Refill Encounter Details Date Type Department Care Team (Late st Contact Info) Description 06/24/2024 Refill [facility] MED[facility]INE 230 [place], [place] [phone] Nikki James MD 230 [place], [place] [phone] Type 2 diabetes mellitus without complication, without long-term current use of insulin ([facility]) Social History Tobacco Use Types Packs/Day Years [...] Description 04/14/2025 1:00 PM EST Nurse Only [facility] [address] [place] [address] documented as of this encounter Goals Goal [...] documented as of this encounter Care Teams Underground Bolting Machine Operator Relationship Specialty Start Date End Date Nikki James MD 230 [place] [address] PCP - General Family Medicine 04/24/18 Mary Rain PharmD 230 [place] [address] Pharmacist Internal Medicine 01/26/23 Gerson Briggs 5 [place] [address] Pulmonary Disease 04/08/24 Babatunde Cornejo DO 22 [place] [address] Endocrinology 04/08/24 Delaney Cantu [address] [place] [address] Dermatology 04/08/24 Uzair Ruiz MD [address] [place] [address] Gastroenterology 09/05/24 Dr. Bravo [facility] Orthopedics [address] [place] [address] Orthopaedic Surgery 05/15/24 documented as of this encounter
--- OUTSIDE RECORDS SUMMARY | 2025-03-19 09:42 | XMS_ITS | Clinical Summary ---
Author Organization [facility] Address [address] [facility] 7t [place] [address] Care Team Providers Care Access Clinician Name Role Phone Nikki James MD Primary Care Provider [phone] Mary Rain PharmD Unavailable Gerson Briggs Unavailable [phone] Babatunde Cornejo DO Unavailable [phone] Delaney Cantu Unavailable Uzair Ruiz MD [...] complication, with long-term current use of insulin ([facility]) Inject under the skin. Active Budeson-Glycopyr rol-Formoterol [...] complication, without long-term current use of insulin ([facility]) Use as directed to monitor glucose ever 8 hours. Replace sensor every 14 days. 2 each 024 2024 Discontinued(M ed list cleanup (will not trigger notification to Pharmacy)) glucose blood (FreeStyle Precision Reza Test) test stripIndications :Type 2 diabetes mellitus without complication, without long-term current use of insulin ([facility]) Test blood sugar q 8 hours 100 [...] notification to Pharmacy)) Lancets (OneTouch Delica Plus [id number]) miscIndications: Type 2 diabetes mellitus without complication, [...] be different from the original. Enrolled in [facility] DM clinic with Elisha TejedaD, [facility] Editor City: [place] Picker Agency: [facility] Problem Noted Date Diagnosed Date B12 [...] 05/03/[address] Bravo of [facility] Class 2 drug-induced obesity with [...] considered to be 1.7 or 2.4 mg skilled nursing. -f/u in 2 months. -10/16/24 reports doing [...] considered to be 1.7 or 2.4 mg skilled nursing. -f/u in 2 months. Dermatitis 12/28/2023 Thyroid [...] Feb 2011. Her care was transferred to [facility] who she sees for her [...] Feb 2011. Her care was transferred to [facility] who she sees for her [...] Feb 2011. Her care was transferred to [facility] who she sees for her chronic headaches and last saw Dec 2014. Topamax is 50 bid. She is now on gabapentin 100mg bid. Other specified health status 01/11/2023 Overview (02/20/2025): -next physical exam due after 02/20/26 -followed by Dr. García Wei of [facility] -dental home is [facility] -filed healthcare proxy on 07/17/2023 Assessment & Plan (02/20/2025 10:41 AM EDT): -next physical exam due after 02/20/26 -followed by Dr. García Wei of [facility] -dental home is [facility] -filed healthcare proxy on 07/17/2023 Assessment & Plan (02/12/2024 10:51 AM EDT): -next physical exam due after 02/11/25 -followed by Dr. García Wei of [facility] -dental home is [facility] [employer] -Filed healthcare proxy on 07/17/2023 Assessment & [...] atorvastatin 40mg -Diabetic eye exam: referred to [facility] 10/16/24 -Diabetic foot exam: 12/28/23 [...] considered to be 1.7 or 2.4 mg skilled nursing. -follow-up in 2 months. Assessment & Plan [...] atorvastatin 40mg -Diabetic eye exam: referred to [facility] 10/16/24 -Diabetic foot exam: 12/28/23 [...] considered to be 1.7 or 2.4 mg skilled nursing. -follow-up in 2 months. Orders: POCT glucose manually resulted POCT glycosylated hemoglobin (Hgb A1c) Albumin, Random Urine W/Creatinine; Future Hepatic Function Panel; Future Lipid Panel, Standard; Future Basic Metabolic Panel; Future Assessment & Plan (10/16/2024 11:46 AM EDT): See above plan. Orders: Lancets (OneTouch Delica Plus [id number]) misc; USE TO TEST BLOOD SUGAR ONCE [...] atorvastatin 40mg -Diabetic eye exam: referred to [facility] 10/16/24 -Diabetic foot exam: 12/28/23 [...] considered to be 1.7 or 2.4 mg skilled nursing. -follow-up in 2 months. Orders: POCT glycosylated [...] considered to be 1.7 or 2.4 mg skilled nursing. -follow-up in 2 months. Assessment & Plan [...] face and neck, under the care of Research And Development Engineer Dr. Cantu. Last note available from Dr [...] 01/27/2014 02/13/2025 Benign neoplasm of cerebral meninges ([facility]/HCC) 01/27/2014 01/11/2023 Obesity due to excess calories 01/27/2014 02/20/2025 Carpal tunnel syndrome 03/30/201202/13 Chronic sinusitis 03/30/2012 02/13/2025 Disuse syndrome 03/30/2012 01/11/2023 Dizziness 03/30/2012 10/21/2023 Ventricular hemorrhage 03/30/201201/11 Encounters Date Type Department Care Team Description 03/13/2025 1:00 PM EST Nurse Only [facility] [address] [place] [address] Ivanna White, MAYA B12 deficiency 03/13/2025 Travel 03/06/2025 Refill [facility] [address] [place] [address] Nikki James MD Primary hypertension 02/26/2025 Refill [facility] [address] [place] [address] Nikki James MD Abnormal echocardiogram 02/21/2025 Refill [facility] [address] [place] [address] Nikki James MD Primary hypertension 02/21/2025 Telephone [facility] [address] [place] [address] Nikki James MD Referral 02/20/2025 9:15 AM EDT Office Visit [facility] [address] [place] [address] Nikki James MD Type 2 diabetes mellitus without complication, with long-term current use of insulin ([facility]) (Primary Dx); Other specified health status; Moderate persistent asthma without complication; B12 deficiency; Class 2 drug-induced obesity with serious comorbidity and body mass index (BMI) of 37.0 to 37.9 in adult; Transaminitis; Depression, recurrent ([facility]/HCC); Primary hypertension; Hirsutism; Encounter for immunization; Vitamin D deficiency; Raynaud's phenomenon without gangrene; Arthralgia, unspecified joint 02/20/2025 Travel 02/19/[address] [address] Nikki James MD chart prep 02/12/2025 Patient Outreach [address] [address] Nikki James MD Pre-visit Planning (SDOH screening was completed on 10/16/2024) 02/10/2025 9:30 AM EDT Nurse Only [address] [address] Ivanna White RN Encounter for immunization 02/10/2025 Travel 01/06/2025 Orders Only [address] [address] Nikki James MD VONNIE positive (Primary Dx); Arthralgia, unspecified joint 01/03/2025 2:00 PM EDT Clinical Support [address] [address] Ivanna White, RN B12 deficiency 01/03/[address] [address] Nikki James MD Referral 01/03/2025 Travel from [...] 1:00 PM EST Nurse Only [facility] [address] [place] [address] Health Maintenance Due Date Last [...] 10:41 AM EDT) Creatinine, Urine 109.20 mg/dL [facility] Microalbumin Urine 5.0 mg/L [facility] Microalbum Creatinine Ratio Ur 4.5 <30 ug/mg cr LABS Comment:Albumin/Creatinine R atio Reference Ranges: Normal: < 30 ug/mg creatinine Microalbuminuria: 30 - 300 ug/mg creatinineClinical Albuminuria: > 300 ug/mg creatinine Urine 02/20/2025 10:4 1 AM EDT 02/20/2025 11:10 AM EDT Nikki James MD LAB URINE ORDERABLES Final Result Performing Organization Address [facility] Co de Phone Number LABS [address] [place] [phone] * Vitamin B12/Folate, Serum Panel (02/20/2025 10:39 AM EDT) Vitamin B12 334 200 - 900 pg/mL LABS Comment:NORMAL 200-900 PG/ML INDETERMINATE 160-199 PG/ML DEFICIENT < 160 PG/ML Folate 10.8 > or = 4.0 ng/mL LABS Comment:Reference Values:> o r = 4.0 [...] BLOOD ORDERABLES Final Result Performing Organization Address [facility] Co de Phone Number LABS [address] [place] [address] [phone] * Testosterone, Total, males (Adult), IA (02/20/2025 10:39 AM EDT) Testosterone, Total 24 2 - 45 ng/dL LABS Comment:For additional infor lillie, please refer tohttp://education.[employer].com/faq/PfpvrLrcbexwcbpbvAOKCQTEBQ736(This link is being provided for informational/educational purposes only.)This test was developed and its analytical performancecharacteristics have been determined by [employer] [place], [place]. It hasnot been cleared or approved by the U.S. Food and DrugAdministration. This assay has been validated pursuantto the CLIA regulations and is used for clinicalpurposes.THIS TEST WAS PERFORMED AT:[facility] [place] [address]HIRBWZNAMBROSIO BISHOP MD,PHD Blood Venous blood specimen / Unknown 02/20/2025 10:39 AM EDT 02/20/2025 1:04 PM EDT Nikki James MD LAB BLOOD ORDERABLES Final Result Performing Organization Address [facility]/ZIP Co de Phone Number LABS [address] [place] [phone] * (ABNORMAL) Hepatic Function Panel (02/20/2025 10:39 AM EDT) Bilirubin, Total 0.5 0.0 - 1.0 mg/dL LABS Bilirubin, Direct 0.2 0.0 - 0.5 mg/dL LABS Aspartate Amino Transferase 37(H) 5 - 31 U/L LABS Alanine Aminotransferase 23 0 - 31 U/L LABS Total Protein 7.5 6.5 - 8.0 g/dL LABS Albumin Level 4.3 3.5 - 5.0 g/dL LABS Alkaline Phosphatase 73 39 - 117 U/L LABS Blood Venous blood specimen / Unknown 02/20/2025 10:39 AM EDT 02/20/2025 1:04 PM EDT Nikki James MD LAB BLOOD ORDERABLES Final Result Performing Organization Address City/[facility]/ZIP Co de Phone Number LABS [address] [place] [phone] * Lipid Panel, Standard (02/20/2025 10:39 AM EDT) Triglycerides 105 <150 mg/dL [facility] Comment:Desirable Triglyceri de: less than 150 mg/dLBorderline High Triglyceride 150-199 mg/dLHigh Triglyceride: 200-499 mg/dLVery High Triglyceride: greater than or equal to 5OO mg/dL Cholesterol 148 <200 mg/dL LABS Comment:Desirable Cholestero l: less than 200 mg/dLBorderline High Cholesterol: 200-239 mg/dLHigh Cholesterol: greater than 239 mg/dL LDL Cholesterol Calculated 77 <100 mg/dL LABS Comment:Desirable LDL: less than 100 mg/dLNear Optimal/Above Optimal LDL: 110- 129 mg/dLBorderline High LDL: 130-159 mg/dLHigh LDL: 160-189 mg/dLVery High LDL: greater than or equal to 190 mg/dL HDL Cholesterol 50 >40 mg/dL [facility] Comment:Desirable HDL: great er than 40 mg/dL Note: This HDL assay may give artificially low results in patients with liver disease. Blood Venous blood specimen / Unknown 02/20/2025 10:39 AM EDT 02/20/2025 1:04 PM EDT us Nikki James MD LAB BLOOD ORDERABLES Final Result LABS [address] [place] [phone] [phone] * (ABNORMAL) Basic Metabolic Panel (02/20/2025 10:39 AM EDT) Sodium 146(H) 135 - 145 mmol/L LABS Potassium 4.2 3.3 - 5.1 mmol/L LABS Chloride 108 96 - 108 mmol/L LABS Carbon Dioxide 28 22 - 29 mmol/L LABS Anion Gap 14 12 - 20 LABS Urea Nitrogen (BUN) 19(H) 9 - 16 mg/dL LABS Creatinine, Serum 0.73 0.5 - 1.4 mg/dL LABS Estimated Glomerular Filt Rate >60 LABS Comment:Chronic Kidney Disea se: Estimated GFR < 60 mL/min/1.33v7Lbvqdq Kidney Disease: Estimated GFR < 15 mL/min/1.73m2 Glucose 81 60 - 115 mg/dL LABS Calcium 9.7 8.4 - 10.2 mg/dL LABS Blood Venous blood specimen / Unknown 02/20/2025 10:39 AM EDT 02/20/2025 1:04 PM EDT Nikki James MD LAB BLOOD ORDERABLES Final Result [facility] [address] [place] [phone] * Hemoglobin A1c (11/06/2024) Hemoglobin A1c 6.4 Blood Venous blood specimen / Unknown Jose Gardner MD LAB BLOOD ORDERABLES Nadeen l Result * Hepatitis Panel, General (10/16/2024 11:45 AM EDT) Hepatitis A IgM Nonreactive Nonreactive LABS Comment:IgM antibodies to NICOLAS V not detected; does not exclude earlyacute or recovered HAV infection. ~Hepatitis B Surface Antibody GRAYZONE Nonreactive LABS Comment:GRAYZONE: 8.00 mIU/m L TO 11.99 mIU/mLTHE IMMUNE STATUS OF THE INDIVIDUAL SHOULD BE FURTHERASSESSED BY CONSIDERING OTHER FACTORS, SUCH CLINICALSTATUS, FOLLOW-UP TESTING, ASSOCIATED RISK FACTORS, AND THEUSE OF ADDITIONAL DIAGNOSTIC INFORMATION. Hepatitis B Core Antibody Nonreactive Nonreactive LABS Hepatitis C Antibody Nonreactive Nonreactive LABS Comment:Antibodies to HCV no t detected; does not exclude early acuteHCV infection. Hepatitis B Surface Ag Negative Negative LABS Blood Venous blood specimen / Unknown 10/16/2024 11:45 AM EDT 10/16/2024 1:20 PM EDT Nikki James MD LAB BLOOD ORDERABLES Final Result LABS [address] [place] [phone] [phone] * BI Mammogram Screening Tomosynthesis Bilateral (04/05/2024 1:00 PM EST) Anatomical Region Laterality Modality Breast Bilateral Mammography 04/05/2024 1:00 PM EST Narrative 04/15/2024 3:59 PM EST [address] [place] [address] Mammography Report Signed Patient: Ruthie Toussaint MR#: [id number] 6 : 1965 Acct:[id number] Age/Sex: 58 / F ADM Date: 04/05/24 Loc: HO.MAMMO Attending Dr: Nikki James MD Ordering Physician: Nikki James MD Results: 1N egative Date of Service: 04/05/24 Follow Up: 1 Year From Orig [facility] Mammogram Procedure(s): MM tomosynthesis screening BI Accession Number(s): [id number] cc: Nikki James MD EXAMINATION: MM SCREENING [...] Connors DO Signed By: <Electronically signed by Michlele Connors DO in OV> 04/15/24 1556 DD/ 1300 TD/TT: 04/05/24 1318 Technical Account Representative: Procedure Note Donotuseinterpreter, Image - 04/15/2024 [facility] [address] [place] [address] Mammography Report Signed Patient: Sameera Toussaint#: [id number] 6 : 1965Acct:[id number] Age/Sex: 58 / FADM Date: 04/05/24 Loc: HO.MAMMO Attending Dr: Nikki James MD Ordering Physician: Nikki James MDResults: 1N egative Date of Service: 04/05/24Follow Up: 1 Year From Orig inal Mammogram Procedure(s): MM tomosynthesis screening BI Accession Number(s): [id number] cc: Nikki James MD EXAMINATION: MM SCREENING [...] 04/15/24 1556 DD/ 1300 TD/TT: 04/05/24 1318 Technical Account Representative: Nikki James MD IMG BI PROCEDURES Final Re sult * HIV 1/2 ANTIGEN/ANTIBODY,FOURTH GENERATION W/RFL (05/31/2021 1:02 PM EST) HIV-1/2 ANTIGEN AND ANTIBODIES, 4TH GENERATION W/ REFLEX NON-REACT MARTIN NON-REACT MARTIN [facility] Comment: HIV-1 antigen and HIV-1/HIV-2 [...] purpose. For additional information please refer to http://education.[employer]/faq/UTO269 (This link is being provided for informational/ educational purposes only.) The performance of this assay has not been clinically validated in patients less than 2 years old. 05/31/2021 1:02 PM EST Nikki James MD LAB BLOOD ORDERABLES Final Result Performing Organization Address City/State/[facility] Co de Phone Number [facility] [address] * HPV E6/E7 RFLX ESTEE 16 18/45 (01/23/2020 2:02 PM EDT) HPV 16 RNA [facility] HPV 18/45 RNA [facility] HPV E6 E7 ADD [facility] HPV mRNA E6/E7 Not Detected Not Detected [facility] Comment: This test was performed using the APTIMA HPV Assay ([employer] This assay detects E6/E7 viral messenger RNA (mRNA) from 14 high-risk HPV types (16,18,31,33,35,39,45,51,52,56,58,59,66,68). The analytical performance characteristics of this assay have been determined by [employer]. The modifications have not been cleared or approved by the FDA. This assay has been validated pursuant to the CLIA regulations and is used for clinical purposes. THIS TEST WAS PERFORMED AT: [employer] [address] [facility] [address],[place] [address] CASSIE VANCE MD 01/23/2020 2:02 PM EDT Jessica Grace HISTORICAL/NON ORDERABLE LABS Fi nal Result [facility] [address] * Colonoscopy (09/15/2017) Colonoscopy normal with Dr. Oliver Historical Provider HEALTH MAINTENANCE Final Result * Pap Smear (12/26/2014 12:00 AM EDT) Swab Historical Provider LAB CYTOLOGY ORDERABLES F inal Result Performing Organization Address City/[facility] Co de Phone Number IMAGING from Last [...] Patient has chronic kidney disease 03/13/2025 Insurance [facility] CARE < 65 [place] [id number] Advance Directives Documents on File Type Date Recorded Patient Assembly Riveter Expl anation Advance Directives and Livin g Will 07/17/2023 Health Care Proxy Care Teams Access Clinician Relationship Specialty Start Date End Date Heard, MD Nikki [address] [place] [address] PCP - General Family Medicine 04/24/18 Mary Rain PharmD [address] [place] [address] Pharmacist Internal Medicine 01/26/23 Gerson Briggs [address] [place] [address] Pulmonary Disease 04/08/24 Babatunde Cornejo DO [address] [place] [address] Endocrinology 04/08/24 Delaney Cantu [address] [address] Dermatology 04/08/24 Uzair Ruiz MD [address] [place] [address] Gastroenterology 09/05/24 Dr. Bravo [facility] [address] [place] [phone] Orthopaedic Surgery 05/15/24
--- OUTSIDE RECORDS SUMMARY | 2025-03-19 09:42 | XMS_ITS | Encounter Summary ---
Author Organization [employer] Address [address] [facility] 7t [place] [address] Care Team Providers Care Clinical Education Manager Name Role Phone Nikki James MD Primary Care Provider [phone] Mary Rain PharmD Unavailable Gerson Briggs Unavailable [phone] Babatunde Cornejo DO Unavailable [phone] Delaney Cantu Unavailable Uzair Ruiz MD Unavailable Encounter Details Date Type Department Care Team (Late st Contact Info) Description 10/21/2023 Orders Only [facility] [address] [place], [place] [phone] Nikki James MD [address] [place], [place] [phone] Social History Tobacco Use Types Packs/Day Years [...] 1:00 PM EST Nurse Only [facility] [address] [place] [phone] documented as of this encounter Goals Goal [...] documented as of this encounter Care Teams Clinical Education Manager Relationship Specialty Start Date End Date Nikki James MD [address] [place] [address] PCP - General Family Medicine 04/24/18 Mary Rain, PharmD [address] [place] [phone] Pharmacist Internal Medicine 01/26/23 Gerson Briggs [address] [place] [address] Pulmonary Disease 04/08/24 Babatunde Cornejo DO [address] [place] [address] Endocrinology 04/08/24 Delaney Cantu [address] [facility] 1ST [place] [address] Dermatology 04/08/24 Uzair Ruiz MD [address] [place] [address] [address] [place] [address] Gastroenterology 09/05/24 Dr. Bravo [facility] [address] [place] [address] Orthopaedic Surgery 05/15/24 documented as of this encounter
--- OUTSIDE RECORDS SUMMARY | 2025-03-19 09:42 | XMS_ITS | Encounter Summary ---
Author Organization [employer] Address [address] [facility] 7t [place] [address] Care Team Providers Care Senior Staff Accountant Name Role Phone Nikki James MD Primary Care Provider [phone] Mary Rain PharmD Unavailable Gerson Briggs Unavailable [phone] Clemente Babatunde Holley DO Unavailable [phone] Delaney Cantu Unavailable Uzair Ruiz MD Unavailable Reason for Visit * Reason Onset Date Comments Nurse Triage 05/16/2023 Encounter Details Date Type Department Care Team (Late st Contact Info) Description 05/16/2023 Telephone [facility] [address] [place] [address] Nikki James MD [address] [place], [place] [phone] Nurse Triage Social History Tobacco Use Types [...] 05/16/2023 12:32 PM EST Triage call with [place] wire drawer [id number] Pt reports positive Covid test 05/10/23. Pt [...] The caller accepted this outcome Patient speaks icelandic documented in this encounter Plan of Treatment Upcoming Encounters Date Type Department Care Team (Late st Contact [facility]) Description 04/14/2025 1:00 PM EST Nurse Only [facility] [address] [place] [address] documented as of this encounter Goals Goal [...] documented as of this encounter Care Teams Senior Staff Accountant Relationship Specialty Start Date End Date Nikki James MD [address] [place] [address] PCP - General Family Medicine 04/24/18 Mary Rain PharmD [address] [place] [address] Pharmacist Internal Medicine 01/26/23 Gerson Briggs [address] [place] [address] Pulmonary Disease 04/08/24 Babatunde Cornejo DO [address] [place] [address] Endocrinology 04/08/[address] [place] [address] Dermatology 04/08/24 Uzair Ruiz MD [address] [place] [address] Gastroenterology 09/05/[address] [facility] [address] [facility] [place] [address] Orthopaedic Surgery 05/15/24 documented as of this encounter
--- OUTSIDE RECORDS SUMMARY | 2025-03-19 09:42 | XMS_ITS | Patient Health Record ---
Author Organization [facility] Address [address] [place] [address] Care Team Providers Care Medical Administrative Assistant Name Role Phone Nikki James MD Primary Care Provider Uzair Ferguson [phone] Allergies Allergen (clinical drug ingredient) Drug/Non Drug Allergy documented on EMR Reaction Allergy Type Onset Date Status Substance with beta adrenergic receptor antagonist mechanism of action (substance) beta timothy (uncoded) Unknown Allergy Active amoxicillin Amoxicillin Unknown Drug Allergy Act marychuy Iodinated contrast media (substance) Iodinated Contrast Media Unknown Drug Allergy Active morphine Morphine Unknown Drug Allergy Active Results Component Value Reference Range Flag Notes Glucose, Whole Blood Reviewed date:09/02/2024 11:34:08 PM Interpretation: Performing Lab:[facility], [address] [place] [phone] Notes/Report: Glucose, Whole Blood 114 60-115 mg/dL N IN TER #: [id number] Pathology Reviewed date:01/22/2025 04:07:45 PM Interpretation: Performing Lab:[facility], [address] [place] [phone] Notes/Report: Reason For Referral No Information Medications Medication SIG (Take, Route, Frequency, Duration) Notes Start Date End Date Status Anoro Ellipta 62.5-25 MCG/ACT Aerosol Powder Breath Activated INHALE 1 PUFF BY MOUTH DAILY Inhalation; Duration: 30 J449,Unavaila ble Active Jardiance 10 MG Tablet Oral; Duration: 90 Active Naproxen 500 MG Tablet Oral; Duration: 30 Active Lisinopril 20 MG Tablet Oral; Duration: 90 I10,U navailab le Active OneTouch Delica Plus [id number] - Miscellaneous USE TO TEST BLOOD SUGAR ONCE DAY; Duration: 90 Active DULoxetine HCl 30 MG Capsule Delayed Release Particles Oral; Duration: 90 Days Active Aspirin Low Dose 81 MG Tablet Delayed Release TAKE 1 TABLET BY MOUTH EVERY DAY Oral; Duration: 90 Active Zolpidem Tartrate 5 MG Tablet TAKE 1 TABLET BY MOUTH AT BEDTIME NEEDED Oral; Duration: 25 Days Active hydrOXYzine HCl 25 MG Tablet Oral; Duration: 30 Active LORazepam 0.5 MG Tablet Oral; Duration: 25 Days Active Breztri Aerosphere 160-9-4.8 MCG/ACT Aerosol INHALE 2 PUFFS BY MOUTH TWICE DAILY Inhalation; Duration: 30 Active Pantoprazole Sodium 40 MG Tablet Delayed Release Oral; Duration: 90 Days Active hydroCHLOROthiazide 25 MG Tablet Oral; Duration: 90 I10,Unavailab le Active metroNIDAZOLE 500 MG Tablet Oral; Durati on: 7 Days Active Pantoprazole Sodium 20 MG Tablet Delayed Release Oral; Duration: 90 Active Acetaminophen Extra Strength 500 MG Tablet TAKE 2 CAPLETS BY MOUTH EVERY 8 HOURS NEEDED FOR FEVER OR PAIN Oral; Duration: 5 Days Active Ozempic (1 MG/DOSE) 4 MG/3ML Solution Pen-injector INJECT 1 MG UNDER THE SKIN EVERY 7 DAYS Subcutaneous; Duration: 28 Active metroNIDAZOLE 500 MG Tablet TAKE 1 TABLE T BY MOUTH TWICE DAILY Oral; Duration: 7 Days Active Ezetimibe 10 MG Tablet Oral; Duration: 9 0 Days Active Jardiance 10 MG Tablet Oral; Duration: 9 0 Days Active Cyanocobalamin 1000 MCG/ML Solution INJECT 1ML IN THE MUSCLE WEEKLY X 4 WEEKS THEN ONCE MONTHLY Injection; Duration: 28 Days Active Albuterol Sulfate HFA 108 (90 Base) MCG/ACT Aerosol Solution INHALE 2 PUFFS EVERY 6 HOURS NEEDED FOR SHORTNESS OF BREATH OR WHEEZING Inhalation; Duration: 25 Days Active hydroCHLOROthiazide 25 MG Tablet Oral; Duration: 90 Days Active Ozempic (2 MG/DOSE) 8 MG/3ML Solution Pen-injector INJECT 2MG UNDER THE SKIN EVERY 7 DAYS Subcutaneous; Duration: 28 Days Active Pantoprazole Sodium 40 MG Tablet Delayed Release 1 tablet 1/2 to 1 hour before morning meal Orally Once a day; Duration: 30 days 09/02/2024 Active Montelukast Sodium 10 MG Tablet Oral; Duration: 90 J4540,Unavail able Active Atorvastatin Calcium 40 MG Tablet Oral; Duration: 90 Active Vitamin D3 25 MCG (1000 UT) Capsule TAKE 1 CAPSULE BY MOUTH EVERY DAY Oral; Duration: 30 M797,Unavaila ble Active DULoxetine HCl 30 MG Capsule Delayed Release Particles TAKE 1 CAPSULE BY MOUTH DAILY Oral; Duration: 90 Active Immunizations Vaccine Route Administration Date Status Comme nts Influenza Unknown 02/13/2024 Administered Influenza Unknown 02/13/2024 Administered Social History Tobacco Use: Social History Observation Description Date Details (start date - stop date) Never Smoker NA - NA Social History Drugs/Alcohol: Social Info Question Answer Notes Alcohol Screen Did you have a drink containing alcohol in the past year? No Points 0 Interpretation Negative Tobacco Use: Social Info Question Answer Notes Tobacco Use/Smoking Patient is a nonsmoker Additional Details Category Social Info Options Details Miscellaneous: Marital status: Occupation: disabled Section Notes: Nonsmoker; no sig alcohol Nonsmoker; no sig alcohol Problems Problem Type SNOMED Code ICD Code Onset Dates Problem Status W/U Status Risk Notes Problem Colon cancer screening (650080779) Colon cancer screening (Z12.11) Active confirmed Problem Heartburn (62865661) Heartburn (R12) Active confirmed Problem Elevated liver enzymes level (191131082) Elevated liver enzymes (R74.8) Active confirmed Problem Fatty liver (251369647) Fatty liver (K76.0) Active confirmed Problem Gastroesophageal reflux disease (disorder) (083005219) Chronic GERD (K21.9) Active confirmed Vital Signs Temperature 97.9 degrees Fahrenheit 01/22/2025 Blood pressure diastolic 01 mm Hg 01/22/2025 Height 5 ft 4 in in 01/22/2025 Blood pressure systolic 001 mm Hg 01/22/2025 Weight 180.6 lbs 01/22/2025 BMI 31 kg/m2 01/22/2025 Encounters Encounter Location Date Provider Diagnosis [facility] Outpatient [address] [place], [place] [phone] 09/02/2024 Uzair Ruiz Hiatal hernia K44.9 and Gastro-esophageal reflux disease without esophagitis K21.9 [facility] [address] [place] [phone] 06/07/2024 Uzair Ruiz Chronic GERD K21.9 ; Heartburn R12 ; Fatty liver K76.0 and Elevated liver enzymes R74.8 [facility] [address] [place] [phone] 01/22/2025 Uzair Ruiz Chronic GERD K21.9 ; Fatty liver K76.0 ; Elevated liver enzymes R74.8 and Colon cancer screening Z12.11 [facility] [address] [place] [address] 08/26/2024 Uzair Ruiz [facility] [address] [place] [address] 09/02/2024 Uzair Ruiz [facility] [address] [place] [address] 09/17/2024 Uzair Ruiz [facility] [address] [place] [address] 01/22/2025 Uzair Ruiz Assessments Encounter Date Diagnosis [...] liver enzymes (ICD-10 - R74.8) Overall, Ruthie appears well. We did review [...] Insured Coverage Start Date Coverage End Date [facility] [address] [place] [id number] Ruthie Toussaint Self - patient is the insured Medical (General) History Medical History History ICD Code NIDDM High blood pressure Fibromyalgia Arthritis Stroke in 2009 due to aneurysm with surg debora-right side weakness Asthma-Sees Dr. Briggs Denies ND or renal disease Negative colonoscopy in 2021 [...] some minimal evidence of gastric retention. Denies ND or renal disease Fatty liver with a negative liver workup in 2024. She had a normal CT scan of her liver in 2024 as well. Surgical History Surgery Date(Month/Year) 2 C-sections Fractured coccyx Gallbladder 2 carpal tunnel surgeries each wrist
--- OUTSIDE RECORDS SUMMARY | 2025-03-19 09:43 | XMS_ITS | Encounter Summary ---
Author Organization [employer] Address [address] [facility] 7t [place] [address] Care Team Providers Care Abstract Writer Name Role Phone Nikki Jmaes MD Primary Care Provider [phone] Mary Rain PharmD Unavailable Gerson Briggs Unavailable [phone] Clemente Babatunde Babb DO Unavailable [phone] Delaney Cantu Unavailable Uzair Ruiz MD Unavailable Encounter Details Date Type Department Care Team (Late st Contact Info) Description 04/21/2022 Orders Only [facility] [address] [place], [place] [phone] Lisa Navarro RN Social History Tobacco Use [...] Description 04/14/2025 1:00 PM EST Nurse Only [facility] [address] [place], [place] [phone] documented as of this encounter Visit Diagnoses Not on filedocumented in this encounter Care Teams Abstract Writer Relationship Specialty Start Date End Date Nikki James MD [address] [place], [place] [phone] PCP - General Family Medicine 04/24/18 Mary Rain PharmD [address] [place] [address] Pharmacist Internal Medicine 01/26/23 Gerson Briggs [address] [place] [address] Pulmonary Disease 04/08/24 Babatunde Cornejo DO [address] [place] [address] Endocrinology 04/08/24 Delaney Cantu [address] [place] [address] Dermatology 04/08/24 Uzair Ruiz MD [address] [place] [address] Gastroenterology 09/05/24 Dr. Bravo [facility] [address] [place] [address] Orthopaedic Surgery 05/15/24 documented as of this encounter
--- OUTSIDE RECORDS SUMMARY | 2025-03-19 09:43 | XMS_ITS | Encounter Summary ---
Author Organization [employer] Address [address] [facility] 7t [place] [address] Care Team Providers Care Project Engineering Manager Name Role Phone Nikki James MD Primary Care Provider [phone] Mary Rain PharmD Unavailable Gerson Briggs Unavailable [phone] Clemente Babatunde Babb DO Unavailable [phone] Delaney Cantu Unavailable Uzair Ruiz MD Unavailable Encounter Details Date Type Department Care Team (Late st Contact Info) Description 05/10/2022 Orders Only [facility] [address] [place], [place] [phone] Alyssa Mehta LPN Social History Tobacco Use [...] Description 04/14/2025 1:00 PM EST Nurse Only [facility] [address] [place], [place] [phone] documented as of this encounter Visit Diagnoses Not on filedocumented in this encounter Care Teams Project Engineering Manager Relationship Specialty Start Date End Date Nikki James MD [address] [place], [place] [phone] PCP - General Family Medicine 04/24/18 Mary Rain, Kisha [address] [place] [address] Pharmacist Internal Medicine 01/26/23 Gerson Briggs 5 [place] [address] Pulmonary Disease 04/08/24 Babatunde Cornejo DO [address] [place] [address] Endocrinology 04/08/24 Delaney Cantu [address] [place] [address] Dermatology 04/08/24 Uzair Ruiz MD [address] [place] [address] Gastroenterology 09/05/[address] [facility] [address] [place] [address] Orthopaedic Surgery 05/15/24 documented as of this encounter
--- OUTSIDE RECORDS SUMMARY | 2025-03-19 09:43 | XMS_ITS | Encounter Summary ---
Author Organization [employer] Address [address] [facility] 7t [place] [address] Care Team Providers Care Asphalt Paving Machine Operator Name Role Phone Nikki James MD Primary Care Provider [phone] Mary Rain PharmD Unavailable Gerson Briggs Unavailable [phone] Clemente Babatunde Babb DO Unavailable [phone] Delaney Cantu Unavailable Uzair Ruiz MD Unavailable Encounter Details Date Type Department Care Team (Late st Contact Info) Description 06/02/2022 Abstract [facility] [address] [place] [phone] Nikki James MD [address] [place], [place] [phone] Social History Tobacco Use Types Packs/Day Years [...] Description 04/14/2025 1:00 PM EST Nurse Only [facility] [address] [place], [place] [phone] documented as of this encounter Procedures Procedure [...] on filedocumented in this encounter Care Teams Asphalt Paving Machine Operator Relationship Specialty Start Date End Date Nikki James MD [address] [place] [address] PCP - General Family Medicine 04/24/18 Mary Rain, ElishaD [address] [place] [address] Pharmacist Internal Medicine 01/26/23 Gerson Briggs 5 [place] [address] Pulmonary Disease 04/08/24 Babatunde Cornejo DO [address] [place] [address] Endocrinology 04/08/24 Delaney Cantu [address] [address] Dermatology 04/08/24 Uzair Ruiz MD [address] [place] [address] Gastroenterology 09/05/24 Dr. Bravo [facility] [address] [place] [address] Orthopaedic Surgery 05/15/24 documented as of this encounter
--- OUTSIDE RECORDS SUMMARY | 2025-03-19 09:43 | XMS_ITS | Encounter Summary ---
Author Organization [employer] Address [address] [facility] 7t [place] [address] Care Team Providers Care Machine Records Units Supervisor Name Role Phone Nikki James MD Primary Care Provider [phone] Mary Rain PharmD Unavailable Gerson Briggs Unavailable [phone] Clemente Babatunde Holley DO Unavailable [phone] Delaney Cantu Unavailable Uzair Ruiz MD Unavailable Reason for Visit * Reason Onset Date Comments Durable Medical Equipment 07/13/2022 Encounter Details Date Type Department Care Team (Late st Contact Info) Description 07/13/2022 Telephone [facility] [address] [place], [place] [phone] Nikki James MD [address] [place], [place] [phone] Durable Medical Equipment Social History Tobacco Use [...] send to medline Please contact pt at [phone] documented in this encounter Plan of Treatment Upcoming Encounters Date Type Department Care Team (Late st Contact Info) Description 04/14/2025 1:00 PM EST Nurse Only [facility] [address] [place] [address] documented as of this encounter Visit Diagnoses Not on filedocumented in this encounter Care Teams Machine Records Units Supervisor Relationship Specialty Start Date End Date Nikki James MD [address] [place] [address] PCP - General Family Medicine 04/24/18 Mary Rain, ElishaD [address] [place] [address] Pharmacist Internal Medicine 01/26/23 Gerson Birggs 5 [place] [address] Pulmonary Disease 04/08/24 Babatunde Cornejo DO 22 [place] [address] Endocrinology 04/08/24 Delaney Cantu [address] [address] Dermatology 04/08/24 Uzair Ruiz MD [address] [place] [address] Gastroenterology 09/05/24 Dr. Bravo [facility] [address] [place] [address] Orthopaedic Surgery 05/15/24 documented as of this encounter
== END 2025-03-19 09:58 | disposition home or self-care (01) ==
LOC: HO.RHES 09:03
PROVIDERS: PCP Family Medicine; Visit Provider Student in an Organized Health Care Education/Training Program
DX: M25.50 Pain in unspecified joint (principal); R76.89 Other specified abnormal immunological findings in serum; I73.00 Raynaud's syndrome without gangrene
CPT/HCPCS: 99204

== ENCOUNTER → 2025-03-19 11:20 | Outpatient (BNV) | payer OTHER, SELFPAY | PROVIDERS: PCP Family Medicine; Visit Provider Radiology Diagnostic Radiology | DX: I73.00 Raynaud's syndrome without gangrene (principal); M17.11 Unilateral primary osteoarthritis, right knee | CPT/HCPCS: 73560 ==

== ENCOUNTER 2025-04-07 10:34 | Outpatient (AMB) | payer OTHER, SELFPAY ==
[2025-04-07 10:36] VITALS: BP 118/70; PULSE 75; O2SAT 96; BMI 30.3
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
== END 2025-04-07 12:02 | disposition home or self-care (01) ==
LOC: HO.RHES 10:34
PROVIDERS: PCP Family Medicine; Visit Provider Student in an Organized Health Care Education/Training Program
DX: M25.50 Pain in unspecified joint (principal); R76.0 Raised antibody titer; M15.0 Primary generalized (osteo)arthritis
CPT/HCPCS: 99213

== ENCOUNTER → 2025-04-07 10:34 | Outpatient (BNVA) | payer OTHER, SELFPAY | PROVIDERS: PCP Family Medicine; Visit Provider Student in an Organized Health Care Education/Training Program | DX: M15.0 Primary generalized (osteo)arthritis (principal); R76.89 Other specified abnormal immunological findings in serum; M79.7 Fibromyalgia | CPT/HCPCS: 99212 ==